=== PATIENT | female | born 1950 | race Hispanic/Latino ===

== ENCOUNTER 2018-09-04 16:38 | Inpatient (IN) | payer OTHER ==
--- OUTSIDE RECORDS SUMMARY | 2018-09-04 17:04 | XMS REPORT ---
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 Problem Diabetic nephropathy associated E11.21 Active with type 2 diabetes mellitus Problem Diabetes 1.5, 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 Problem Traumatic ulcer, limited to L98.491 Active breakdown of skin Problem Diabetic polyneuropathy associated E11.42 Active with type 2 diabetes mellitus Problem Peripheral vascular disease due to E13.51 Active secondary diabetes Problem Essential hypertension I10 Active Problem Pure hypercholesterolemia E78.00 Active Medications Medication Code Code Instructions Start End Status Dosage System Date Date Santyl [facility] 03940342469 250 UNIT/GM Apr 24, May 08, Active 1 application Externally Once 2017 2017 to affected a day area Lyrica ND 00892342978 75 MG Orally Apr 23, Active 1 capsule Twice a day 2017 Metformin HCl ND 04488454441 1000 MG Orally Active 1 tablet with Twice a day a meal Victoza [facility] 51467297666 18 MG/3ML March 19Sep 15, Active 1.2 mg Subcutaneous 2017 2017 daily Pravastatin ND 40999668871 40 MG Orally Active 1 tablet Sodium Once a day Potassium ND 77641048490 20 MEQ Orally Active 1 tablet with Chloride Jackeline Once a day food ER Metoprolol ND 17992848843 50 MG Orally Active 1 tablet with Tartrate Twice a day food Furosemide ND 21550213805 40 MG Orally Active 1 tablet Once a day Naproxen ND 24400202782 500 MG Orally Active 1 tablet Twice a day Clopidogrel ND 48942941659 75 MG Orally Active 1 tablet Bisulfate Once a day Results No Known Results Summary Purpose eClinicalWorks Submission
--- OUTSIDE RECORDS SUMMARY | 2018-09-04 17:04 | XMS REPORT ---
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
--- OUTSIDE RECORDS SUMMARY | 2018-09-04 17:04 | XMS REPORT ---
:1950 Author Organization eClinicalWorks Care Team Providers Name Role Phone Mo Macias Provider Role Unavailable Allergies No Known Allergies Problems Problem Type Condition Code Onset Dates Condition Status Assessment Peripheral vascular disease due to E13.51 Active secondary diabetes Assessment Chronic congestive heart failure, I50.9 Active unspecified heart failure type Assessment Pure hypercholesterolemia E78.00 Active Assessment Diabetic polyneuropathy associated E11.42 Active with type 2 diabetes mellitus Problem Pure hypercholesterolemia E78.00 Active Problem Diabetic polyneuropathy associated E11.42 Active with type 2 diabetes mellitus Problem Essential hypertension I10 Active Assessment Diabetes 1.5, 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 Assessment Essential hypertension I10 Active Problem Peripheral vascular disease due to E13.51 Active secondary diabetes Problem Diabetes 1.5, 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 Medications Medication Code Code Instructions Start End Status Dosage System Date Date Naproxen [facility] 68429739178 500 MG Orally Active 1 tablet Twice a day Clopidogrel [facility] 54149178016 75 MG Orally Active 1 tablet Bisulfate Once a day Bactrim DS [facility] 25226261880 800-160 MG Active 1 tablet Orally Twice a day x2wks Augmentin [facility] 51169856202 250-62.5 MG/5ML Active 1 tablet Orally QD x2wks Pravastatin ND 81859210809 40 MG Orally Active 1 tablet Sodium Once a day Lyrica ND 07366851561 75 MG Orally Inactive 1 capsule Once a day Glimepiride ND 82086508686 4 MG Orally Active 1 tablet twice a day with breakfast or the first main meal of the day Cleocin ND 60257056802 150 MG Orally Active 2 capsules Once a day x2wks Furosemide [facility] 36079006900 40 MG Orally Active 1 tablet Once a day Potassium [facility] 28870787655 20 MEQ Orally Active 1 tablet Chloride Jackeline Once a day with food ER Metoprolol ND 36957518460 50 MG Orally Active 1 tablet Tartrate Twice a day with food Metformin HCl [facility] 94599946235 1000 MG Orally Active 1 tablet Twice a day with a meal Results No Known Results Summary Purpose eClinicalWorks Submission
--- OUTSIDE RECORDS SUMMARY | 2018-09-04 17:04 | XMS REPORT ---
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, macular edema presence unspecified Assessment Peripheral vascular disease due to E13.51 Active secondary diabetes Problem Diabetes 1.5, 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 Problem Essential hypertension I10 Active Problem Diabetic nephropathy associated E11.21 Active with type 2 diabetes mellitus Problem Peripheral vascular disease due to E13.51 Active secondary diabetes Problem 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, macular edema presence unspecified Problem Pure hypercholesterolemia E78.00 Active Problem Diabetic polyneuropathy associated E11.42 Active with type 2 diabetes mellitus Medications Medication Code Code Instructions Start End Status Dosage System Date Date Glimepiride [facility] 12157244063 4 MG Orally March Inactive 1 tablet twice a day 2017 breakfast or the first main meal of the day Augmentin [facility] 97769746328 250-62.5 MG/5ML March Active 1 tablet Orally QD x2wks 2017 Bactrim DS [facility] 16938018346 800-160 MG March Active 1 tablet Orally Twice a x2wks 2017 Pravastatin [facility] 67555503381 40 MG Orally Active 1 tablet Sodium Once a day Metformin HCl ND 25189103497 1000 MG Orally Active 1 tablet Twice a day with a meal Clopidogrel [facility] 84092598646 75 MG Orally Active 1 tablet Bisulfate Once a day Potassium ND 28730929714 20 MEQ Orally Active 1 tablet Chloride Jackeline Once a day with food ER Metoprolol [facility] 83260877849 50 MG Orally Active 1 tablet Tartrate Twice a day with food Furosemide [facility] 71211323324 40 MG Orally Active 1 tablet Once a day Cleocin [facility] 52616450002 150 MG Orally March Active 2 capsules Once a day , x2wks 2017 Victoza [facility] 82518033280 18 MG/3ML March 19Sep 15, Active 1.2 mg Subcutaneous 2017 2017 daily Naproxen [facility] 99288615417 500 MG Orally Active 1 tablet Twice a day Results No Known Results Summary Purpose eClinicalWorks Submission
--- OUTSIDE RECORDS SUMMARY | 2018-09-04 17:04 | XMS REPORT ---
[...] Dosage System Date Date BD Pen Needle [facility] 21711202410 32G X 4 MM SQ May 11, Active as directed [place] U/F once a day 2017 Results No Known Results Summary Purpose eClinicalWorks Submission
--- OUTSIDE RECORDS SUMMARY | 2018-09-04 17:04 | XMS REPORT ---
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
[2018-09-04 17:25] VITALS: BMI 28.3
[2018-09-04] MEDS ORDERED: GLUCAGON 1 MG/VIAL IM PRN (18:21)
[2018-09-04] MEDS ORDERED: D50W 25 GM/50 ML SYRINGE IV PRN (18:21)
[2018-09-04 18:57] LABS: Absolute Lymphocytes (CBC) 1.6 K/uL (0.7-4.9); Absolute Monocytes 0.6 K/uL (0.1-1.3); Absolute Neutrophil 6.8 K/uL (1.8-8.0); Basophils % 0.8 % (0-1.3); Eosinophils % 2.1 % (0-4.4); Hematocrit 30.1 % (36.0-45.0); Lymphocytes % 17.5 % (15.3-44.8); MPV 8.5 fL (7.6-11.3); Monocytes % 6.1 % (3.3-12.3); RBC Red Blood Cell Count 3.84 M/uL (3.86-4.86)
[2018-09-04 19:07] LABS: Albumin 3.3 g/dL (3.4-5.0); Bilirubin Total 0.4 mg/dL (0.2-1.0); Potassium 4.3 mmol/L (3.5-5.1); Protein, Total 7.7 g/dL (6.4-8.2)
[2018-09-04] MEDS: NA CHLORIDE 0.9% 1,000 ML IV SCH (19:36)
--- NOTE | 2018-09-04 19:44 | P.HP ---
Certification for Inpatient Patient admitted to: Inpatient With expected LOS: >2 Midnights Patient will require the following post-hospital care: Home Health Services Practitioner: I am a practitioner with admitting privileges, knowledge of patient current condition, hospital course, and medical plan of care. Services: Services provided to patient in accordance with Admission requirements found in Title 42 Section 412.3 of the Code of Federal Regulations Patient History Date of Service: 09/04/18 Primary Care Provider: Colleen Reason for admission: osteomyleitis of the left 4th toe History of Present Illness: Patient came to the office today. She has been coming to the wound care center for treatment of a diabetic ulcer on her left 4th toe. the patient lost her nail on that toe. has been increasing in size. She has stated it looked worse. On examination the wound has definitely grown, foul smell. Bone could be seen in the wound. patient was sent to the hospital for admission and iv antibiotics. Allergies No Known Allergies Allergy (Unverified 05/11/16 12:58) Home Medications: Furosemide [Lasix*] 40 mg PO DAILY 05/11/16 Metformin HCl [Metformin HCl ER] 1,000 mg PO BID 05/11/16 Metoprolol Tartrate [Lopressor*] 50 mg PO BID 05/11/16 Pravastatin [Pravachol*] 40 mg PO DAILY 05/11/16 Clopidogrel Bisulfate [Plavix] 1 tab PO DAILY 11/02/17 Naproxen [Naprosyn] 500 mg PO BID 11/13/17 Pregabalin [Lyrica] 75 mg PO BID 09/04/18 - Past Medical/Surgical History Has patient received pneumonia vaccine in the past: Yes Diabetic: Yes -: CAD -: DIABETES -: HTN -: cholesterol -: neuropathy -: CABG X 3 -: cataract sx - Family History Father -: Stroke Sister -: Cancer Mother -: Heart disease - Social History Smoking Status: Never smoker Alcohol use: No CD- Drugs: No Caffeine use: Yes Place of Residence: Home Review of Systems 10-point ROS is otherwise unremarkable Musculoskeletal: Foot Pain (patient state minimal pain) Physical Examination - Vital Signs Temperature: 96.9 F Blood Pressure: 156/65 Pulse: 73 Respirations: 16 Pulse Ox (%): 96 - Physical Exam General: Alert, In no apparent distress HEENT: Atraumatic, PERRLA, Mucous membr. moist/pink, EOMI, Sclerae nonicteric Neck: Supple, 2+ carotid pulse no bruit, No LAD, Without JVD or thyroid abnormality Respiratory: Clear to auscultation bilaterally, Normal air movement Cardiovascular: Regular rate/rhythm, Normal S1 S2 Gastrointestinal: Normal bowel sounds, No tenderness Musculoskeletal: Tenderness Integumentary: No rashes, Diabetic ulcer (increased in size, with foul smell, not present 08/29/18.) Neurological: Normal gait, Normal speech, Normal strength at 5/5 x4 extr, Normal tone, Normal affect Lymphatics: No axilla or inguinal lymphadenopathy - Studies Laboratory Data (last 24 hrs) 09/04/18 18:30: Sodium 137, Potassium 4.3, BUN 33 H, Creatinine 0.90, Glucose 147 H, Total Bilirubin 0.4, AST 13 L, ALT 13, Alkaline Phosphatase 121 H 09/04/18 18:30: WBC 9.2, Hgb 9.8 L, Hct 30.1 L, Plt Count 329 Assessment and Plan - Problems (Diagnosis) (1) Osteomyelitis due to secondary diabetes Onset Date: 05/26/16 Current Visit: No Status: Acute Plan: Will start the patient on vanco and meropenem. As per the [place] Guide. Consult to Dr. Booth and Dr. Farrell. Will get an MRI to check for osteo. Will also do vascular studies (2) Type 2 diabetes mellitus without complications Current Visit: No Status: Acute Plan: hold metforminin case of surgery. Will start her on ISS and accuchecks. Start ADA diet Qualifiers: Diabetes mellitus assisted insulin use: without assisted use Qualified Code(s): E11.9 - Type 2 diabetes mellitus without complications (3) CAD (coronary artery disease) Onset Date: 05/26/16 Current Visit: No Status: Chronic Plan: stable will continue metformin. No chest pain at this time Qualifiers: Coronary Disease-Associated Artery/Lesion type: [place] artery (4) HTN (hypertension) Onset Date: 05/26/16 Current Visit: No Status: Chronic Plan: Only on metoprolol. Will monitor bp and adjust as necessary Qualifiers: Hypertension type: essential hypertension (5) Hyperlipidemia Current Visit: No Status: Chronic Plan: cont pravastatin. Will check a fasting lipid profile Qualifiers: Discharge Plan: Home Plan to discharge in: Greater than 2 days - Advance Directives Does patient have a Living Will: No Does patient have a Durable POA for Healthcare: No - Code Status/Comfort Care Code Status Assessed: No Code Status: Full Code Physician Review: Patient Assessed, Agree with Above Assessment and Plan Critical Care: No Time Spent Managing Pts Care (In Minutes): 75
[2018-09-04] MEDS ORDERED: VANCOMYCIN/NS 1 gm 1 GM/250 ML BAG IV SCH (21:00)
[2018-09-04] MEDS ORDERED: VANCOMYCIN 1.75 GM in NA CHLORIDE 0.9% 500 ML IVPB ONE (21:00)
[2018-09-04] MEDS ORDERED: VANCOMYCIN 1 GM in NA CHLORIDE 0.9% 500 ML IVPB SCH (21:00)
[2018-09-04] MEDS: Meropenem 1,000 MG in NA CHLORIDE 0.9% 100 ML IV SCH (21:55)
[2018-09-04] MEDS: INSULIN -REGULAR HUMAN 50 UNIT/0.5 ML ML SQ SCH (21:56)
[2018-09-04] MEDS: PREGABALIN 75 MG CAP PO SCH (21:56)
[2018-09-04] MEDS: METOPROLOL TAR 50 MG TAB PO SCH (21:56)
[2018-09-05 00:08] LABS: Urine Appearance CLOUDY; Urine Bilirubin NEGATIVE (NEG); Urine Blood NEGATIVE (NEG); Urine Color YELLOW; Urine Glucose 2+ (NEG); Urine Protein NEGATIVE (NEG); Urine Urobilinogen 0.2 mg/dL (0.2-1.0)
[2018-09-05 00:15] LABS: Urine Microscopic Reflex ORDER UMIC
[2018-09-05] MEDS ORDERED: Meropenem 1,000 MG in NA CHLORIDE 0.9% 100 ML IV SCH ×2 (01:00→19:00)
[2018-09-05] MEDS ORDERED: Meropenem 1000 MG/VIAL IV SCH (01:00)
[2018-09-05 01:16] LABS: Urine Bacteria 20-50 /HPF (<20); Urine Culture Reflex Order REFLEXED
[2018-09-05 01:17] LABS: Urine RBC <5 /HPF (NONE SEEN)
[2018-09-05] MEDS: Meropenem 1,000 MG in NA CHLORIDE 0.9% 100 ML IV SCH ×3 (01:50→17:04)
[2018-09-05 06:59] LABS: Absolute Lymphocytes (CBC) 1.1 K/uL (0.7-4.9); Absolute Monocytes 0.7 K/uL (0.1-1.3); Absolute Neutrophil 4.4 K/uL (1.8-8.0); Basophils % 0.7 % (0-1.3); Eosinophils % 3.6 % (0-4.4); Hematocrit 27.8 % (36.0-45.0); Lymphocytes % 16.9 % (15.3-44.8); MPV 8.4 fL (7.6-11.3); Monocytes % 10.8 % (3.3-12.3); RBC Red Blood Cell Count 3.61 M/uL (3.86-4.86)
[2018-09-05 07:25] LABS: ALT/SGPT 10 U/L (12-78); AST/SGOT 9 U/L (15-37); Albumin 2.6 g/dL (3.4-5.0); Alkaline Phosphatase 97 U/L (45-117); BUN Blood Urea Nitrogen 23 mg/dL (7-18); Bicarbonate 27 mmol/L (21-32); Bilirubin Total 0.3 mg/dL (0.2-1.0); Glucose Level 97 mg/dL (74-106); HDL Cholesterol 31 mg/dL (40-60); LDL Cholesterol, Calculated 68 (<130); Protein, Total 6.5 g/dL (6.4-8.2); Sodium Level 141 mmol/L (136-145)
[2018-09-05] MEDS: INSULIN -REGULAR HUMAN 50 UNIT/0.5 ML ML SQ SCH ×4 (07:30→21:20)
[2018-09-05] MEDS: HYDROCODONE/APAP 7.5/325 MG TAB PO PRN ×2 (07:49→19:54)
--- NOTE | 2018-09-05 08:19 | RAD REPORT ---
EXAM DESCRIPTION: MRI - Foot Left Wo Cont - 09/04/2018 8:48 pm CLINICAL HISTORY: Diabetic foot, left fourth toe wound COMPARISON: MRI left foot January 2018 TECHNIQUE: Multiplanar imaging of the left foot performed using T1 weighted, T2 fat saturation and T 2 stir sequencing. FINDINGS: Hypointense T1 and hyperintense T2 signal now present in the first distal phalanx. Transve rse hypointense signal traverses the midportion of the first distal phalanx. These are new findings f rom the January examination. There is no history of trauma or wound of the first toe. The first distal ph alanx finding has the appearance of fracture and associated edema. No gross bone destructive changes evident to indicate a pathologic fracture. First proximal phalanx shows normal signal. The osteomyelitis findings of the fifth toe seen on the January examination has substantially improved. T here is some remnant signal abnormality in the patient appears to have bone loss in the distal aspect of the proximal phalanx and proximal aspect of the middle phalanx. No abscess or drainable fluid col lection in this region. Fourth phalanx shows no suspicious signal pattern to indicate osteomyelitis. There is chronic flexure at the fourth PIP joint. Soft tissues are edematous. No drainable fluid collections seen. The second and third phalanges show no acute findings. No acute or suspicious signal abnormality in t he tarsal or metatarsal bones. There are degenerative changes present. IMPRESSION: Soft tissue infectious/ inflammatory edema is present in the left fourth toe soft tissue s without osteomyelitis identifiable. First distal phalanx fracture and abnormal edema signal. There is no trauma history or history of wou nd. This may be a fracture that is asymptomatic due to diabetic neuropathy. Osteomyelitis or patholog ic fracture are not suspected in the absence of a local soft tissue wound. Substantial improvement in the signal abnormality and osteomyelitis of the fifth distal phalanx. Ther e is a small amount of remnant signal abnormality. Patient appears to have bone loss near the fifth P IP joint. No abscess or drainable fluid collection.
[2018-09-05] MEDS ORDERED: HOME MED 1 EA UNK (Pravastatin [Pravachol*] 40 MG) PO SCH (09:00)
--- NOTE | 2018-09-05 09:13 | P.PN ---
Subjective Date of Service: 09/05/18 Primary Care Provider: Colleen Chief Complaint: osteomyleitis of the left 4th toe Subjective: No new changes Review of Systems 10-point ROS is otherwise unremarkable Musculoskeletal: Foot Pain (mild pain) Physical Examination - Vital Signs Temperature: 98.2 F Blood Pressure: 114/65 Pulse: 62 Respirations: 18 Pulse Ox (%): 96 - Physical Exam General: Alert, In no apparent distress HEENT: Atraumatic, PERRLA, EOMI Neck: Supple, JVD not distended Respiratory: Clear to auscultation bilaterally, Normal air movement Cardiovascular: Regular rate/rhythm, Normal S1 S2 Gastrointestinal: Normal bowel sounds, No tenderness Musculoskeletal: No tenderness Integumentary: No rashes Neurological: Normal speech, Normal tone, Normal affect Lymphatics: No axilla or inguinal lymphadenopathy - Studies Laboratory Data (last 24 hrs) 09/05/18 06:31: Sodium 141, Potassium 4.0, BUN 23 H, Creatinine 0.60, Glucose 97 , Total Bilirubin 0.3, AST 9 L, ALT 10 L, Alkaline Phosphatase 97, Triglycerides 120, Cholesterol 123, HDL Cholesterol 31 L, Cholesterol/HDL Ratio 3.97 09/05/18 06:31: WBC 6.5 D, Hgb 9.0 L, Hct 27.8 L, Plt Count 332 09/05/18 05:00: Triglycerides Cancelled, Cholesterol Cancelled, HDL Cholesterol Cancelled, Cholesterol/HDL Ratio Cancelled 09/04/18 18:30: Sodium 137, Potassium 4.3, BUN 33 H, Creatinine 0.90, Glucose 147 H, Total Bilirubin 0.4, AST 13 L, ALT 13, Alkaline Phosphatase 121 H 09/04/18 18:30: WBC 9.2, Hgb 9.8 L, Hct 30.1 L, Plt Count 329 Microbiology Data (last 24 hrs): 09/04/18 21:50 Wound - Left Foot Gram Stain - Final Assessment & Plan - Problems (Diagnosis) (1) Osteomyelitis due to secondary diabetes Onset Date: 05/26/16 Current Visit: No Status: Acute Plan: Will start the patient on vanco and meropenem. As per the [place] Guide. Consult to Dr. Booth and Dr. Farrell. Will get an MRI to check for osteo. Will also do vascular studies (2) Type 2 diabetes mellitus without complications Current Visit: No Status: Acute Plan: hold metforminin case of surgery. Will start her on ISS and accuchecks. 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 Will monitor bp and adjust as necessary Qualifiers: Hypertension type: essential hypertension (4) Hyperlipidemia Current Visit: No Status: Chronic Plan: cont pravastatin. Will check a fasting lipid profile Qualifiers: (5) CAD (coronary artery disease) Onset Date: 05/26/16 Current Visit: No Status: Chronic Plan: stable will continue metformin. No chest pain at this time Qualifiers: Coronary Disease-Associated Artery/Lesion type: [place] artery Discharge Plan: Home Plan to discharge in: Greater than 2 days - Code Status/Comfort Care Code Status Assessed: No Code Status: Full Code Physician Review: Patient Assessed, Agree with Above Assessment and Plan Critical Care: No Time Spent Managing Pts Care (In Minutes): 20
[2018-09-05] MEDS: ATORVASTATIN 10 MG TAB PO SCH (10:03)
[2018-09-05] MEDS: PREGABALIN 75 MG CAP PO SCH ×2 (10:03→21:21)
[2018-09-05] MEDS: METOPROLOL TAR 50 MG TAB PO SCH ×2 (10:03→21:21)
[2018-09-05] MEDS: NA CHLORIDE 0.9% 1,000 ML IV SCH ×2 (10:05→21:19)
--- NOTE | 2018-09-05 10:35 | RAD REPORT ---
EXAM DESCRIPTION: US - Extrem Venous W Compress Darrius - 09/05/2018 9:31 am CLINICAL HISTORY: diabetic foot Bilateral leg edema and swelling. COMPARISON: No comparisons TECHNIQUE: Real-time sonographic interrogation of the left and right lower extremity deep venous sys tems was performed. FINDINGS: Normal compressibility, flow augmentation, phasic flow and spontaneous flow is identified in both the left and right lower extremity deep venous systems. IMPRESSION: No sonographic evidence of left or right lower extremity deep venous thrombosis.
--- NOTE | 2018-09-05 10:35 | RAD REPORT ---
EXAM DESCRIPTION: US - Upper Lower Extrem Art Multi - 09/05/2018 9:48 am CLINICAL HISTORY: diabetic foot Claudication COMPARISON: Extrem Venous W Compress Darrius dated 09/05/2018 TECHNIQUE: Bilateral lower extremity arterial Doppler examination was performed with waveform tracin g and ankle brachial pressure measurements. FINDINGS: Symmetric brachial pressure measurements are noted. The right common femoral artery to the right popliteal artery is triphasic. Right posterior tibial ar solis is monophasic and the dorsalis pedis artery is monophasic. The left common femoral artery to the left popliteal artery is triphasic. Left posterior tibial arter y is monophasic and noncompressible. Left dorsalis pedis artery is monophasic. Right ankle - great toe index measures 0.1, significantly diminished. Left ankle- great toe index measures 0.2, significantly diminished. IMPRESSION: Significant distal peripheral vascular disease is noted bilaterally predominately below the level of the popliteal arteries. This type of disease pattern is commonly seen in diabetics. Vessel occlusion is not seen.
[2018-09-05] MEDS: VANCOMYCIN 1.25 GM in NA CHLORIDE 0.9% 250 ML IVPB SCH ×2 (11:17→21:21)
--- NOTE | 2018-09-05 13:20 | P.CNS ---
Date of Consult: 09/05/18 Reason for Consult: wound left fourth digit Primary Care Provider: Colleen Chief Complaint: osteomyleitis of the left 4th toe Allergies No Known Allergies Allergy (Verified 09/05/18 00:51) Home Medications: Furosemide [Lasix*] 40 mg PO DAILY 05/11/16 Metformin HCl [Metformin HCl ER] 1,000 mg PO BID 05/11/16 Metoprolol Tartrate [Lopressor*] 50 mg PO BID 05/11/16 Pravastatin [Pravachol*] 40 mg PO DAILY 05/11/16 Clopidogrel Bisulfate [Plavix] 1 tab PO DAILY 11/02/17 Naproxen [Naprosyn] 500 mg PO BID 11/13/17 Pregabalin [Lyrica] 75 mg PO BID 09/04/18 - Past Medical/Surgical History Diabetic: Yes -: CAD -: DIABETES -: HTN -: cholesterol -: neuropathy -: CABG X 3 -: cataract sx - Family History Father Medical History: Stroke Sister Medical History: Cancer Mother Medical History: Heart disease - Social History Alcohol use: No CD- Drugs: No Caffeine use: Yes Place of Residence: Home Review of Systems 10-point ROS is otherwise unremarkable Physical Examination Temp Pulse Resp BP Pulse Ox 98.2 F 62 18 114/65 96 09/05/18 09:12 09/05/18 10:03 09/05/18 09:12 09/05/18 10:03 09/05/18 09:12 General: Alert, In no apparent distress, Oriented x3 Cardiovascular: No edema, Abnormal pulses (brandy left of 0.1 and right of 0.2) Capillary refill: <2 Seconds Musculoskeletal: No clubbing, No swelling, No contractures, No erythema, No tenderness, No warmth Integumentary: Diabetic ulcer (ulceration distal aspect of left fourth digit with bone exposure, large black eschar/fibrin, no purulence, minimal edema left hallux) Neurological: Abnormal sensation Laboratory Data (last 24 hrs) 09/05/18 06:31: Sodium 141, Potassium 4.0, BUN 23 H, Creatinine 0.60, Glucose 97 , Total Bilirubin 0.3, AST 9 L, ALT 10 L, Alkaline Phosphatase 97, Triglycerides 120, Cholesterol 123, HDL Cholesterol 31 L, Cholesterol/HDL Ratio 3.97 09/05/18 06:31: WBC 6.5 D, Hgb 9.0 L, Hct 27.8 L, Plt Count 332 09/05/18 05:00: Triglycerides Cancelled, Cholesterol Cancelled, HDL Cholesterol Cancelled, Cholesterol/HDL Ratio Cancelled 09/04/18 18:30: Sodium 137, Potassium 4.3, BUN 33 H, Creatinine 0.90, Glucose 147 H, Total Bilirubin 0.4, AST 13 L, ALT 13, Alkaline Phosphatase 121 H 09/04/18 18:30: WBC 9.2, Hgb 9.8 L, Hct 30.1 L, Plt Count 329 Imagings Data: MRI left foot negative for osteomyelitis left fourth digit. - Problems (1) Osteomyelitis due to secondary diabetes Onset Date: 05/26/16 Current Visit: No Status: Acute Conclusions/Impression: santyl to wound daily with saline moistened gauze Physician Review: Patient Assessed, Agree with Above Assessment and Plan Time Spent Managing Pts care (In Minutes): 30
--- NOTE | 2018-09-05 17:23 | CON ---
History: The patient is a 68-year-old female. I was consulted for left foot cellulitis and osteomye litis with diabetic foot ulcer. The patient is a known case to me from previous admissions and clini c visits, being followed by Wound Care and primary care doctor down here in [place]. She has th is time developed foul smelling diabetic foot ulcer to the left fourth toe with loss of nail. Denies any headache, nausea, vomiting, chest pain, abdominal pain, constipation, or diarrhea. Past Medical History: Coronary artery disease, diabetes mellitus, hypertension, hypercholesterolemia , neuropathy, CABG x3 vessels, cataract surgery. Family History: Positive for stroke, cancer, and heart disease. Social History: Nonsmoker, nondrinker. Family History: Noncontributory. Medications: Vancomycin and meropenem. Allergies: NO KNOWN DRUG ALLERGIES. Review of Systems: A 10-point review was performed. Physical Examination: General: This is a 68-year-old female, lying in bed, not in any acute cardiopulmonary distress. Vital Signs: Temperature 98, pulse 62, respiration 18, blood pressure 114/65. HEENT: Unremarkable. Neck: Supple. Lungs: Basal crackles. Heart: S1, S2. Regular. Abdomen: Soft, nontender. Bowel sounds positive. Extremity: Left foot wound noted with foul smelling, necrotic ulcer also noted. Laboratory Data: Shows WBC 6.5, hemoglobin 9, platelets are 332. Sodium 141, potassium 4, chloride 110, bicarb 27, BUN 23, creatinine 0.6, glucose is 97, albumin is 2.6. MRI of the left foot shows so ft tissue infection. Inflammatory edema is present in the left fourth toe soft tissue without osteom yelitis identified first distal phalanx fracture. Micro data shows wound cultures and blood cultures are pending. Assessment And Plan: Infected diabetic foot ulcer with MRI showing no osteomyelitis. At this time, continue antibiotic and wound care. Recommend the patient to have Hydrofera Blue to the wound site a nd continue offloading. Continue antibiotic, total course should be at least 2 weeks. If not improv ed, we would re-evaluate, follow up with the W[facility] Care [facility]. We will continue current antibiotic till the cultures came back. Thank you, Dr. Macias, for consult. NF/CHRIS Voice ID: [id number] Report ID: [id number]
[2018-09-06] MEDS: Meropenem 1,000 MG in NA CHLORIDE 0.9% 100 ML IV SCH ×3 (00:28→17:59)
[2018-09-06 06:41] LABS: Absolute Lymphocytes (CBC) 0.9 K/uL (0.7-4.9); Absolute Monocytes 0.6 K/uL (0.1-1.3); Absolute Neutrophil 3.6 K/uL (1.8-8.0); Basophils % 0.9 % (0-1.3); Eosinophils % 4.6 % (0-4.4); Hematocrit 26.5 % (36.0-45.0); Lymphocytes % 16.4 % (15.3-44.8); MPV 8.5 fL (7.6-11.3); Monocytes % 10.8 % (3.3-12.3); RBC Red Blood Cell Count 3.41 M/uL (3.86-4.86)
[2018-09-06 06:54] LABS: ALT/SGPT 11 U/L (12-78); AST/SGOT 10 U/L (15-37); Albumin 2.4 g/dL (3.4-5.0); Alkaline Phosphatase 97 U/L (45-117); BUN Blood Urea Nitrogen 18 mg/dL (7-18); Bicarbonate 25 mmol/L (21-32); Bilirubin Total 0.2 mg/dL (0.2-1.0); Glucose Level 164 mg/dL (74-106); Potassium 4.4 mmol/L (3.5-5.1); Protein, Total 5.9 g/dL (6.4-8.2); Sodium Level 139 mmol/L (136-145)
[2018-09-06] MEDS: INSULIN -REGULAR HUMAN 50 UNIT/0.5 ML ML SQ SCH ×4 (07:30→21:38)
[2018-09-06] MEDS: VANCOMYCIN 1.25 GM in NA CHLORIDE 0.9% 250 ML IVPB SCH ×2 (09:00→15:16)
[2018-09-06] MEDS: ATORVASTATIN 10 MG TAB PO SCH (09:57)
[2018-09-06] MEDS: PREGABALIN 75 MG CAP PO SCH ×2 (09:57→21:38)
[2018-09-06] MEDS: METOPROLOL TAR 50 MG TAB PO SCH ×2 (09:57→21:38)
[2018-09-06] MEDS: COLLAGENASE 30 GM OINTMENT TOP SCH (09:59)
--- NOTE | 2018-09-06 14:16 | P.PN ---
Subjective Date of Service: 09/06/18 Primary Care Provider: Colleen Chief Complaint: osteomyleitis of the left 4th toe Subjective: No new changes Review of Systems 10-point ROS is otherwise unremarkable Physical Examination - Vital Signs Temperature: 97.3 F Blood Pressure: 159/70 Pulse: 60 Respirations: 18 Pulse Ox (%): 96 - Physical Exam General: Alert, In no apparent distress, Oriented x3 Cardiovascular: No edema, Abnormal pulses Capillary refill: >2 Seconds Musculoskeletal: No clubbing, No swelling, No contractures, No erythema, No tenderness, No warmth Integumentary: Diabetic ulcer (ulceration distal aspect of left fifth digit demonstrates large necrotic tissue with bone exposure. No purulence noted) Neurological: Abnormal sensation - Studies Laboratory Data (last 24 hrs) 09/06/18 06:06: Sodium 139, Potassium 4.4, BUN 18, Creatinine 0.50 L, Glucose 164 H, Total Bilirubin 0.2, AST 10 L, ALT 11 L, Alkaline Phosphatase 97 09/06/18 06:06: WBC 5.3 D, Hgb 8.9 L, Hct 26.5 L, Plt Count 300 Microbiology Data (last 24 hrs): 09/04/18 21:50 Wound - Left Foot Gram Stain - Final 09/04/18 23:40 Clean Catch Urine [place] Count - Final <10,000 CFU/ML. 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 Debridment was to the level of muscle with minimal bleeding noted after the procedure. Wound to be dressed with santyl Physician Review: Patient Assessed, Agree with Above Assessment and Plan Time Spent Managing PTS Care (In Minutes): 20
[2018-09-06] MEDS: NA CHLORIDE 0.9% 1,000 ML IV SCH ×2 (15:15→21:39)
--- NOTE | 2018-09-06 15:19 | P.PN ---
Subjective Date of Service: 09/06/18 Primary Care Provider: Colleen Chief Complaint: osteomyleitis of the left 4th toe Subjective: No new changes Review of Systems 10-point ROS is otherwise unremarkable Physical Examination - Vital Signs Temperature: 97.3 F Blood Pressure: 159/70 Pulse: 60 Respirations: 18 Pulse Ox (%): 96 - Studies Laboratory Data (last 24 hrs) 09/06/18 06:06: Sodium 139, Potassium 4.4, BUN 18, Creatinine 0.50 L, Glucose 164 H, Total Bilirubin 0.2, AST 10 L, ALT 11 L, Alkaline Phosphatase 97 09/06/18 06:06: WBC 5.3 D, Hgb 8.9 L, Hct 26.5 L, Plt Count 300 Microbiology Data (last 24 hrs): 09/04/18 21:50 Wound - Left Foot Gram Stain - Final 09/04/18 23:40 Clean Catch Urine [place] Count - Final <10,000 CFU/ML. 09/04/18 23:40 Clean Catch Urine - Final Assessment & Plan - Problems (Diagnosis) (1) Osteomyelitis due to secondary diabetes Onset Date: 05/26/16 Current Visit: No Status: Acute Plan: Will start the patient on vanco and meropenem. As per the [place] Guide. Consult to Dr. Booth and Dr. Farrell. will arrange for piccl line. consult social media senior associate. Gm -ve in the culture with Gm + chains. Will await the full report. (2) Peripheral vascular disease due to secondary diabetes Current Visit: Yes Status: Acute Plan: will need to plan for out patient revascularization. Can consider Dr Ludwin Shankar. Will arrange for this as an outpatient. (3) Type 2 diabetes mellitus without complications Onset Date: 09/05/18 Current Visit: No Status: Acute Plan: hold metforminin case of surgery. Will start her on ISS and accuchecks. 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 Will monitor bp and adjust as necessary Qualifiers: Hypertension type: essential hypertension (5) Hyperlipidemia Onset Date: 09/05/18 Current Visit: No Status: Chronic Plan: cont pravastatin. Will check a fasting lipid profile Qualifiers: (6) CAD (coronary artery disease) Onset Date: 05/26/16 Current Visit: No Status: Chronic Plan: stable will continue metformin. No chest pain at this time Qualifiers: Coronary Disease-Associated Artery/Lesion type: [place] artery Discharge Plan: Home Plan to discharge in: 48 Hours - Code Status/Comfort Care Code Status Assessed: No Code Status: Full Code Physician Review: Patient Assessed, Agree with Above Assessment and Plan Critical Care: No Time Spent Managing Pts Care (In Minutes): 25
[2018-09-07] MEDS: HYDROCODONE/APAP 7.5/325 MG TAB PO PRN ×2 (02:17→09:39)
[2018-09-07] MEDS: Meropenem 1,000 MG in NA CHLORIDE 0.9% 100 ML IV SCH ×2 (02:18→09:35)
[2018-09-07 03:28] VITALS: O2SAT 96
[2018-09-07 05:22] LABS: Absolute Lymphocytes (CBC) 1.6 K/uL (0.7-4.9); Absolute Monocytes 0.7 K/uL (0.1-1.3); Absolute Neutrophil 4.4 K/uL (1.8-8.0); Basophils % 0.5 % (0-1.3); Eosinophils % 3.3 % (0-4.4); Hematocrit 27.9 % (36.0-45.0); Lymphocytes % 23.1 % (15.3-44.8); MPV 8.5 fL (7.6-11.3); Monocytes % 9.7 % (3.3-12.3)
[2018-09-07 05:40] LABS: Albumin 2.6 g/dL (3.4-5.0); Bilirubin Total 0.2 mg/dL (0.2-1.0); Potassium 4.5 mmol/L (3.5-5.1); Protein, Total 6.5 g/dL (6.4-8.2)
[2018-09-07] MEDS: INSULIN -REGULAR HUMAN 50 UNIT/0.5 ML ML SQ SCH ×2 (07:30→12:39)
--- NOTE | 2018-09-07 08:03 | RAD REPORT ---
EXAM DESCRIPTION: RAD - Chest Single View - 09/07/2018 2:20 am CLINICAL HISTORY: Device placement PICC line placement COMPARISON: October 2017 FINDINGS: A PICC line has been inserted with its tip in the distal superior vena cava. The lungs appear clear of acute infiltrate. The heart is mildly enlarged. Postsurgical changes involv e the chest IMPRESSION: PICC line with its tip in the distal superior vena cava
[2018-09-07] MEDS ORDERED: LISINOPRIL 10 MG TAB PO SCH (09:00)
[2018-09-07] MEDS: PREGABALIN 75 MG CAP PO SCH (09:36)
[2018-09-07] MEDS: METOPROLOL TAR 50 MG TAB PO SCH (09:37)
[2018-09-07] MEDS: ATORVASTATIN 10 MG TAB PO SCH (09:37)
[2018-09-07] MEDS: COLLAGENASE 30 GM OINTMENT TOP SCH (09:46)
[2018-09-07] MEDS: VANCOMYCIN 1.25 GM in NA CHLORIDE 0.9% 250 ML IVPB SCH (09:47)
--- NOTE | 2018-09-07 11:17 | P.DS ---
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 She has been coming to the wound care center for treatment of a diabetic ulcer on her left 4th toe. the patient lost her nail on that toe. has been increasing in size. She has stated it looked worse. On examination the wound has definitely grown, foul smell. Bone could be seen in the wound. patient was sent to the hospital for admission and iv antibiotics. Hospital Course: Patient was seen by Dr. Booth, and Dr. Bhardwaj. She had a bedside debridement with Dr. Booth. MRI showed no osteomyleitis. She had proteus mirabilais in the wound. Multidrug sensitive. Will discharge her on 2 weeks of levaquin. Will add augment po for synergistic effect. She can follow up with Dr. Booth in the wound care center. Will need to refer her to Dr. Snow Shankar. She can be seen in [place]. She perfers to be seen in the area. However she most likely needs to be seen in [facility] for any revascularization procedures. 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 Vital Signs/Physical Exam: Temp Pulse Resp BP Pulse Ox 96.8 F 64 18 156/68 H 96 09/07/18 08:00 09/07/18 09:38 09/07/18 08:00 09/07/18 09:38 09/07/18 08:00 General: Alert, In no apparent distress HEENT: Atraumatic, PERRLA, EOMI Neck: Supple, JVD not distended Respiratory: Clear to auscultation bilaterally, Normal air movement Cardiovascular: Regular rate/rhythm, Normal S1 S2 Gastrointestinal: Normal bowel sounds, No tenderness Musculoskeletal: No tenderness Integumentary: No rashes, Diabetic ulcer (left 4th toe) Neurological: Normal speech, Normal tone, Normal affect Lymphatics: No axilla or inguinal lymphadenopathy Laboratory Data at Discharge: WBC 6.9 K/uL (4.3-10.9) D 09/07/18 04:30 Hgb 9.0 g/dL (12.0-15.0) L 09/07/18 04:30 Hct 27.9 % (36.0-45.0) L 09/07/18 04:30 Plt Count 335 K/uL (152-406) 09/07/18 04:30 Sodium 139 mmol/L (136-145) 09/07/18 04:30 Potassium 4.5 mmol/L (3.5-5.1) 09/07/18 04:30 BUN 15 mg/dL (7-18) 09/07/18 04:30 Creatinine 0.70 mg/dL (0.55-1.3) 09/07/18 04:30 Glucose 117 mg/dL (74-106) H 09/07/18 04:30 Total Bilirubin 0.2 mg/dL (0.2-1.0) 09/07/18 04:30 AST 14 U/L (15-37) L 09/07/18 04:30 ALT 14 U/L (12-78) 09/07/18 04:30 Alkaline Phosphatase 101 U/L (45-117) 09/07/18 04:30 Triglycerides 120 mg/dL (<150) 09/05/18 06:31 Cholesterol 123 mg/dL (<200) 09/05/18 06:31 HDL Cholesterol 31 mg/dL (40-60) L 09/05/18 06:31 Cholesterol/HDL Ratio 3.97 09/05/18 06:31 Home Medications: Furosemide [Lasix*] 40 mg PO DAILY 05/11/16 Metformin HCl [Metformin HCl ER] 1,000 mg PO BID 05/11/16 Metoprolol Tartrate [Lopressor*] 50 mg PO BID 05/11/16 Pravastatin [Pravachol*] 40 mg PO DAILY 05/11/16 Clopidogrel Bisulfate [Plavix] 1 tab PO DAILY 11/02/17 Naproxen [Naprosyn] 500 mg PO BID 11/13/17 Pregabalin [Lyrica] 75 mg PO BID 09/04/18 Diet: ADA Activity: Ad riccardo Followup: El Booth JR, DPM [ASSOCIATE-ACTIVE - CAN ADMIT] - Time spent managing pt's care (in minutes): 25
[2018-09-07 12:55] VITALS: BP 129/61; TEMP 97.1
== END 2018-09-07 13:55 | disposition home or self-care (01) | DRG 982 ==
LOC: 2ND 17:02
PROVIDERS: ADMIT Internal Medicine; ATTEND Internal Medicine
PROC: 02HV33Z Insertion of Infusion Device into Superior Vena Cava, Percutaneous Approach (ICD-10-PCS; 2018-09-06)
PROC: 0KBW0ZZ Excision of Left Foot Muscle, Open Approach (ICD-10-PCS; principal; 2018-09-07)
DX: E11.621 Type 2 diabetes mellitus with foot ulcer (principal); L97.526 Non-pressure chronic ulcer of other part of left foot with bone involvement without evidence of necrosis; E11.69 Type 2 diabetes mellitus with other specified complication; Z79.84 Long term (current) use of oral hypoglycemic drugs; E11.51 Type 2 diabetes mellitus with diabetic peripheral angiopathy without gangrene; I10 Essential (primary) hypertension; E78.5 Hyperlipidemia, unspecified; I25.10 Atherosclerotic heart disease of native coronary artery without angina pectoris; Z95.1 Presence of aortocoronary bypass graft; B96.4 Proteus (mirabilis) (morganii) as the cause of diseases classified elsewhere
CPT/HCPCS: 36415; 71045; 80053; 80061; 80202; 81003; 81015; 82962; 84443; 85025; 87040; 87070; 87077; 87086; 87088; 87186; 87205; 93923; 93970; J3370; J3590; J7030

== ENCOUNTER 2018-09-15 18:59 | Emergency (ER) | payer OTHER ==
--- OUTSIDE RECORDS SUMMARY | 2018-09-15 19:01 | XMS REPORT ---
[...] End Status Dosage System Date Date Naproxen [facility] 08783818148 500 MG Orally Active 1 tablet Twice a day Clopidogrel [facility] 47986531190 75 MG Orally Active 1 tablet Bisulfate Once a day Bactrim DS [facility] 59083634706 800-160 MG Active 1 tablet Orally Twice a day x2wks Augmentin [facility] 08815525137 250-62.5 MG/5ML Active 1 tablet Orally QD x2wks Pravastatin ND 87632891203 40 MG Orally Active 1 tablet Sodium Once a day Lyrica ND 54741276907 75 MG Orally Inactive 1 capsule Once a day Glimepiride ND 00620336449 4 MG Orally Active 1 tablet twice a day with breakfast or the first main meal of the day Cleocin ND 53066650720 150 MG Orally Active 2 capsules Once a day x2wks Furosemide [facility] 55338188295 40 MG Orally Active 1 tablet Once a day Potassium [facility] 15431949481 20 MEQ Orally Active 1 tablet Chloride Jackeline Once a day with food ER Metoprolol ND 60999049230 50 MG Orally Active 1 tablet Tartrate Twice a day with food Metformin HCl [facility] 35429485920 1000 MG Orally Active 1 tablet Twice a day with a meal Results No Known Results Summary Purpose eClinicalWorks Submission
--- OUTSIDE RECORDS SUMMARY | 2018-09-15 19:01 | XMS REPORT ---
[...] Date Status Dosage Date Naproxen [facility] 03899898461 500 MG Orally Active 1 tablet Twice a day Lyrica [facility] 47534705788 75 MG Orally Apr 23, Active 1 capsule Twice a day 2017 Victoza [facility] 24041361287 18 MG/3ML March 19, Sep 15, Active 1.2 mg Subcutaneous 2017 2018 daily Results No Known Results Summary Purpose eClinicalWorks Submission
--- OUTSIDE RECORDS SUMMARY | 2018-09-15 19:01 | XMS REPORT ---
[...] Dosage System Date Date BD Pen Needle [facility] 21072953276 32G X 4 MM SQ May 11, Active as directed [place] U/F once a day 2017 Results No Known Results Summary Purpose eClinicalWorks Submission
--- OUTSIDE RECORDS SUMMARY | 2018-09-15 19:01 | XMS REPORT ---
[...] End Status Dosage System Date Date Santyl [facility] 59463597238 250 UNIT/GM Apr 24, May 08, Active 1 application Externally Once 2017 2017 to affected a day area Lyrica ND 61336894882 75 MG Orally Apr 23, Active 1 capsule Twice a day 2017 Metformin HCl ND 44483540140 1000 MG Orally Active 1 tablet with Twice a day a meal Victoza [facility] 03584016803 18 MG/3ML March 19Sep 15, Active 1.2 mg Subcutaneous 2017 2017 daily Pravastatin ND 59906902352 40 MG Orally Active 1 tablet Sodium Once a day Potassium ND 11922080701 20 MEQ Orally Active 1 tablet with Chloride Jackeline Once a day food ER Metoprolol ND 57574778090 50 MG Orally Active 1 tablet with Tartrate Twice a day food Furosemide ND 90419946618 40 MG Orally Active 1 tablet Once a day Naproxen ND 41973054619 500 MG Orally Active 1 tablet Twice a day Clopidogrel ND 61671343088 75 MG Orally Active 1 tablet Bisulfate Once a day Results No Known Results Summary Purpose eClinicalWorks Submission
--- OUTSIDE RECORDS SUMMARY | 2018-09-15 19:01 | XMS REPORT ---
[...] BD Pen Needle [facility] 41723682806 32G X 4 MM SQ May 11, Active as directed [place] U/F once a day 2017 Results No Known Results Summary Purpose eClinicalWorks Submission
--- OUTSIDE RECORDS SUMMARY | 2018-09-15 19:01 | XMS REPORT ---
[...] End Status Dosage System Date Date Glimepiride [facility] 17724483419 4 MG Orally March Inactive 1 tablet twice a day 2017 breakfast or the first main meal of the day Augmentin [facility] 62194182844 250-62.5 MG/5ML March Active 1 tablet Orally QD x2wks 2017 Bactrim DS [facility] 55262839208 800-160 MG March Active 1 tablet Orally Twice a x2wks 2017 Pravastatin [facility] 78322405465 40 MG Orally Active 1 tablet Sodium Once a day Metformin HCl ND 86586325389 1000 MG Orally Active 1 tablet Twice a day with a meal Clopidogrel [facility] 31895800979 75 MG Orally Active 1 tablet Bisulfate Once a day Potassium ND 21416682636 20 MEQ Orally Active 1 tablet Chloride Jackeline Once a day with food ER Metoprolol [facility] 87140237034 50 MG Orally Active 1 tablet Tartrate Twice a day with food Furosemide [facility] 18683868176 40 MG Orally Active 1 tablet Once a day Cleocin [facility] 59057747386 150 MG Orally March Active 2 capsules Once a day , x2wks 2017 Victoza [facility] 02374731513 18 MG/3ML March 19Sep 15, Active 1.2 mg Subcutaneous 2017 2017 daily Naproxen [facility] 47803466853 500 MG Orally Active 1 tablet Twice a day Results No Known Results Summary Purpose eClinicalWorks Submission
[2018-09-15] MEDS ORDERED: ONDANSETRON 4 MG (ODT) TAB ONE (20:14)
--- NOTE | 2018-09-15 20:43 | EDPHYS ---
Physician Documentation [facility] Name: Mildred Kelly Age: 68 yrs Sex: Female : 1950 Arrival Date: 09/15/2018 Time: 19:01 Bed 7 Private MD: Mo Macias ED Physician Benja Banks HPI: 09/15 20:23 This 68 yrs old Female presents to ER via Wheelchair with complaints of jr8 Nausea, Back Pain. 20:23 Patient has been on levaquin via PICC line and now transitioned to oral Levaquin for jr8 osteomyelitis of the foot. Since started on the medication has been nauseated and could no longer tolerate it. Denies diarrhea or pain to abdomen . Severity of symptoms: At their worst the symptoms were mild in the emergency department the symptoms are unchanged. The patient has not experienced similar symptoms in the past. The patient has not recently seen a physician. Historical: - Allergies: 19:20 No Known Allergies; aj1 - Home Meds: 19:20 pravastatin 40 mg oral tab 1 tab once daily [Active]; Lasix 40 mg Oral tab 1 tab once aj1 daily [Active]; glimepiride 4 mg Oral tab 1 tab twice daily [Active]; metformin 1,000 mg Oral tab 1 tab 2 times per day [Active]; naproxen 500 mg Oral TbEC 1 tab 2 times per day [Active]; metoprolol tartrate 50 mg Oral tab 1 tab 2 times per day [Active]; Lyrica 75 mg Oral 2 times per day [Active]; Levaquin 750 mg Oral tab 1 tab once daily [Active]; - PMHx: 19:20 Hyperlipidemia; Hypertension; Diabetes - NIDDM; neuropathy; CHF; triple bypass; aj1 - Immunization history:: Flu vaccine is up to date. - Social history:: Smoking status: Patient/guardian denies using tobacco. - Ebola Screening: : Patient denies travel to an Ebola-affected area in the 21 days before illness onset. ROS: 20:23 Eyes: Negative for injury, pain, redness, and discharge, ENT: Negative for injury, jr8 pain, and discharge, Neck: Negative for injury, pain, and swelling, Cardiovascular: Negative for chest pain, palpitations, and edema, Respiratory: Negative for shortness of breath, cough, wheezing, and pleuritic chest pain, Back: Negative for injury. Has pain to mid back MS/Extremity: Negative for injury and deformity, Skin: Negative for injury, rash, and discoloration, Neuro: Negative for headache, weakness, numbness, tingling, and seizure. 20:23 Abdomen/GI: Positive for nausea, vomiting, Negative for abdominal pain, diarrhea, constipation, abdominal cramps, abdominal distension, anorexia, dysphagia, hematemesis, black/tarry stool, rectal pain, rectal bleeding, bowel incontinence, flatulence. Exam: 20:23 Eyes: Pupils equal round and reactive to light, extra-ocular motions intact. Lids and jr8 lashes normal. Conjunctiva and sclera are non-icteric and not injected. Cornea within normal limits. Periorbital areas with no swelling, redness, or edema. ENT: Nares patent. No nasal discharge, no septal abnormalities noted. Tympanic membranes are normal and external auditory canals are clear. Oropharynx with no redness, swelling, or masses, exudates, or evidence of obstruction, uvula midline. Mucous membranes moist. Neck: Trachea midline, no thyromegaly or masses palpated, and no cervical lymphadenopathy. Supple, full range of motion without nuchal rigidity, or vertebral point tenderness. No Meningismus. Cardiovascular: Regular rate and rhythm with a normal S1 and S2. No gallops, murmurs, or rubs. Normal PMI, no JVD. No pulse deficits. Respiratory: Lungs have equal breath sounds bilaterally, clear to auscultation and percussion. No rales, rhonchi or wheezes noted. No increased work of breathing, no retractions or nasal flaring. Abdomen/GI: Soft, non-tender, with normal bowel sounds. No distension or tympany. No guarding or rebound. No evidence of tenderness throughout. Back: No spinal tenderness. No costovertebral tenderness. Full range of motion. Skin: Warm, dry with normal turgor. Normal color with no rashes, no lesions, and no evidence of cellulitis. MS/ Extremity: Pulses equal, no cyanosis. Neurovascular intact. Full, normal range of motion. Neuro: Awake and alert, GCS 15, oriented to person, place, time, and situation. Cranial nerves II-XII grossly intact. Motor strength 5/5 in all extremities. Sensory grossly intact. Cerebellar exam normal. Normal gait. Vital Signs: 19:20 BP 130 / 69; Pulse 87; Resp 18; Temp 97.0; Pulse Ox 100% on R/A; Weight 72.57 kg (R); aj1 Height 5 ft. 5 in. (165.10 cm) (R); Pain 7/10; 20:30 BP 113 / 84; Pulse 85; Resp 18; Pulse Ox 100% on R/A; ca1 19:20 Body Mass Index 26.63 (72.57 kg, 165.10 cm) aj1 MDM: 20:04 Patient medically screened. jr8 20:42 Data reviewed: vital signs, nurses notes, lab test result(s), radiologic studies, plain jr8 films, and as a result, I will discharge patient. Data interpreted: Pulse oximetry: on room air is 100 %. Interpretation: normal. Counseling: I had a detailed discussion with the patient and/or guardian regarding: the historical points, exam findings, and any diagnostic results supporting the discharge/admit diagnosis, lab results, radiology results, the need for outpatient follow up, a family practitioner, to return to the emergency department if symptoms worsen or persist or if there are any questions or concerns that arise at home. Response to treatment: the patient's symptoms have markedly improved after treatment. 09/15 20:12 Order name: Glucose, Ancillary Testing; Complete Time: 20:15 EDMS 09/15 20:04 Order name: XRAY Abdomen 1 View (KUB); Complete Time: 21:02 aa1 09/15 20:04 Order name: FSBS; Complete Time: 20:12 aa1 Administered Medications: 20:08 Drug: Zofran 4 mg Route: PO; ca1 20:51 Follow up: Response: No adverse reaction; Nausea is decreased ca1 Disposition: 21:09 Co-signature as Attending Physician, Benja Banks MD. pkl Disposition: 09/15/18 20:42 Discharged to Home. Impression: Nausea. - Condition is Stable. - Discharge Instructions: Nausea and Vomiting, Adult. - Prescriptions for Zofran 4 mg Oral Tablet - take 1 tablet by ORAL route every 8 hours As needed; 20 tablet. Miralax 17 gram/dose Oral - take 1 packet by ORAL route once daily dilute powder in 8 ounces of water or juice; 1 box. - Medication Reconciliation Form, Thank You Letter, Antibiotic Education, Prescription Opioid Use form. - Follow up: Colleen, Mo, MD; When: 2 - 3 days; Reason: Recheck today's complaints, Continuance of care, Re-evaluation by your physician. - Problem is new. - Symptoms have improved. Signatures: Dispatcher [employer] EDJanine Washington RN RN aj1 Debra Bingham RN RN aa1 Benja Banks MD MD pkl Roszak, Josh, PA PA jr8 Heavenly Paredes RN RN ca1 Corrections: (The following items were deleted from the chart) 21:07 20:42 09/15/2018 20:42 Discharged to Home. Impression: Nausea. Condition is Stable. ca1 Forms are Medication Reconciliation Form, Thank You Letter, Antibiotic Education, Prescription Opioid Use. Follow up: Mo Macias; When: 2 - 3 days; Reason: Recheck today's complaints, Continuance of care, Re-evaluation by your physician. Problem is new. Symptoms have improved. jr8
--- NOTE | 2018-09-15 20:43 | ER ---
Nurse's Notes [facility] Name: Mildred Kelly Age: 68 yrs Sex: Female : 1950 Arrival Date: 09/15/2018 Time: 19:01 Bed 7 Private MD: Mo Macias Diagnosis: Nausea Presentation: 09/15 19:12 Presenting complaint: Child states: "Last week she was in here she was put in the [facility] because she has an infection on her toe. They did an MRI and they said she didn't have infection in her bone,but they put in a PICC line and she was coming up here for antibiotics. Yesterday they took out the PICC line and put her on pills. She's took it last night and she's been throwing up and having heartburn. She didn't even take her pill today.". Transition of care: patient was not received from another setting of care. Onset of symptoms was September 14, 2018. Risk Assessment: Do you want to hurt yourself or someone else? Patient reports no desire to harm self or others. Initial Sepsis Screen: Does the patient meet any 2 criteria? No. Patient's initial sepsis screen is negative. Does the patient have a suspected source of infection? No. Patient's initial sepsis screen is negative. Care prior to arrival: None. 19:12 Method Of Arrival: Wheelchair [facility] 19:12 Acuity: JANE 3 [facility] Triage Assessment: 19:20 General: Appears in no apparent distress. comfortable, Behavior is calm, cooperative, aj1 appropriate for age. Pain: Complains of pain in back Pain currently is 7 out of 10 on a pain scale. Neuro: Level of Consciousness is awake, alert, obeys commands. Cardiovascular: Patient's skin is warm and dry. Respiratory: Airway is patent Respiratory effort is even, unlabored, Respiratory pattern is regular, symmetrical. Historical: - Allergies: 19:20 No Known Allergies; aj - Home Meds: 19:20 pravastatin 40 mg oral tab 1 tab once daily [Active]; Lasix 40 mg Oral tab 1 tab once aj1 daily [Active]; glimepiride 4 mg Oral tab 1 tab twice daily [Active]; metformin 1,000 mg Oral tab 1 tab 2 times per day [Active]; naproxen 500 mg Oral TbEC 1 tab 2 times per day [Active]; metoprolol tartrate 50 mg Oral tab 1 tab 2 times per day [Active]; Lyrica 75 mg Oral 2 times per day [Active]; Levaquin 750 mg Oral tab 1 tab once daily [Active]; - PMHx: 19:20 Hyperlipidemia; Hypertension; Diabetes - NIDDM; neuropathy; CHF; triple bypass; aj1 - Immunization history:: Flu vaccine is up to date. - Social history:: Smoking status: Patient/guardian denies using tobacco. - Ebola Screening: : Patient denies travel to an Ebola-affected area in the 21 days before illness onset. Screenin:40 Abuse screen: Denies threats or abuse. Denies injuries from another. Nutritional ca1 screening: No deficits noted. Tuberculosis screening: No symptoms or risk factors identified. Fall Risk None identified. Assessment: 19:40 General: Appears in no apparent distress. ill, Behavior is calm, cooperative, ca1 appropriate for age. Pain: Complains of pain in abdomen Pain currently is 7 out of 10 on a pain scale. Pain began today. Neuro: Level of Consciousness is awake, alert, obeys commands, Oriented to person, place, time, situation. Cardiovascular: Heart tones S1 S2 present Capillary refill < 3 seconds Patient's skin is warm and dry. Respiratory: Airway is patent Trachea midline Respiratory effort is even, unlabored, Respiratory pattern is regular, symmetrical, Breath sounds are clear bilaterally. GI: Abdomen is flat, non-distended, Bowel sounds present X 4 quads. Abd is soft X 4 quads Abdomen is tender to palpation Reports constipation, nausea, vomiting, since yesterday. : No signs and/or symptoms were reported regarding the genitourinary system. EENT: No signs and/or symptoms were reported regarding the EENT system. Derm: Skin is intact, is healthy with good turgor, Skin is pink, warm \\T\\ dry. Musculoskeletal: Circulation, motion, and sensation intact. Range of motion: intact in all extremities. 20:30 Reassessment: Patient appears in no apparent distress at this time. Patient and/or ca1 family updated on plan of care and expected duration. Pain level reassessed. Patient is alert, oriented x 3, equal unlabored respirations, skin warm/dry/pink. Vital Signs: 19:20 BP 130 / 69; Pulse 87; Resp 18; Temp 97.0; Pulse Ox 100% on R/A; Weight 72.57 kg (R); aj1 Height 5 ft. 5 in. (165.10 cm) (R); Pain 7/10; 20:30 BP 113 / 84; Pulse 85; Resp 18; Pulse Ox 100% on R/A; ca1 19:20 Body Mass Index 26.63 (72.57 kg, 165.10 cm) aj1 ED Course: 19:01 Patient arrived in ED. sb2 19:02 Mo Macias MD is Private Physician. sb2 19:16 Triage completed. aj1 19:20 Arm band placed on Patient placed in an exam room. aj1 19:29 Heavenly Paredes, BRETT is Primary Nurse. ca1 19:40 Patient has correct armband on for positive identification. Bed in low position. Call ca1 light in reach. Side rails up X 1. Pulse ox on. NIBP on. Warm blanket given. 20:02 Hugo Pino PA is PHCP. aa1 20:02 Benja Banks MD is Attending Physician. aa1 20:30 X-ray completed. Portable x-ray completed in exam room. la2 20:34 XRAY Abdomen 1 View (KUB) In Process Unspecified. EDMS 20:42 Mo Macias MD is Referral Physician. jr8 21:05 No provider procedures requiring assistance completed. Patient did not have IV access ca1 during this emergency room visit. Administered Medications: 20:08 Drug: Zofran 4 mg Route: PO; ca1 20:51 Follow up: Response: No adverse reaction; Nausea is decreased ca1 Outcome: 20:42 Discharge ordered by . jr8 21:05 Discharged to home via wheelchair, with son. ca1 21:05 Condition: stable 21:05 Discharge instructions given to patient, family, Instructed on discharge instructions, follow up and referral plans. medication usage, Demonstrated understanding of instructions, follow-up care, medications, Prescriptions given X 2. 21:07 Patient left the ED. ca1 Signatures: Dispatcher [employer] EDMS Janine Tijerina RN RN aj1 Debra Bingham RN RN aa1 Hugo Pino PA PA jr8 Marlyn Robles la2 Susan Solis sb2 Acob, Heavenly, RN RN ca1
--- NOTE | 2018-09-15 21:00 | RAD REPORT ---
EXAM DESCRIPTION: RAD - Abdomen 1 View (KUB) - 09/15/2018 8:34 pm CLINICAL HISTORY: Abdomen pain. FINDINGS: The bowel gas pattern is unremarkable. A moderate amount of stool is present within the colon. Vascular calcifications are present.
[2018-09-15 21:12] VITALS: TEMP 97; O2SAT 100
[2018-09-15 21:13] VITALS: BP 113/84
== END 2018-09-15 21:07 | disposition home or self-care (01) ==
LOC: ER 18:59
DX: R11.0 Nausea (principal); E78.5 Hyperlipidemia, unspecified; E11.40 Type 2 diabetes mellitus with diabetic neuropathy, unspecified; I11.0 Hypertensive heart disease with heart failure; I50.9 Heart failure, unspecified; M86.9 Osteomyelitis, unspecified; Z79.2 Long term (current) use of antibiotics; Z79.84 Long term (current) use of oral hypoglycemic drugs; Z79.1 Long term (current) use of non-steroidal anti-inflammatories (NSAID); Z79.899 Other long term (current) drug therapy; Z95.1 Presence of aortocoronary bypass graft
CPT/HCPCS: 74018; 82962; 99284

== ENCOUNTER 2019-01-18 20:34 | Inpatient (IN) | payer OTHER ==
--- OUTSIDE RECORDS SUMMARY | 2019-01-18 20:37 | XMS REPORT ---
[...] Dosage System Date Date BD Pen Needle [facility] 10675136323 32G X 4 MM SQ May 11, Active as directed [place] U/F once a day 2017 Results No Known Results Summary Purpose eClinicalWorks Submission
--- OUTSIDE RECORDS SUMMARY | 2019-01-18 20:37 | XMS REPORT ---
[...] End Status Dosage System Date Date Santyl [facility] 69988506507 250 UNIT/GM Apr 24, May 08, Active 1 application Externally Once 2017 2017 to affected a day area Lyrica ND 90307505555 75 MG Orally Apr 23, Active 1 capsule Twice a day 2017 Metformin HCl ND 89639941470 1000 MG Orally Active 1 tablet with Twice a day a meal Victoza [facility] 62284488357 18 MG/3ML March 19Sep 15, Active 1.2 mg Subcutaneous 2017 2017 daily Pravastatin ND 15556414005 40 MG Orally Active 1 tablet Sodium Once a day Potassium ND 02448051373 20 MEQ Orally Active 1 tablet with Chloride Jackeline Once a day food ER Metoprolol ND 56047305813 50 MG Orally Active 1 tablet with Tartrate Twice a day food Furosemide ND 81895851347 40 MG Orally Active 1 tablet Once a day Naproxen ND 21664027185 500 MG Orally Active 1 tablet Twice a day Clopidogrel ND 89655374254 75 MG Orally Active 1 tablet Bisulfate Once a day Results No Known Results Summary Purpose eClinicalWorks Submission
--- OUTSIDE RECORDS SUMMARY | 2019-01-18 20:37 | XMS REPORT ---
[...] End Status Dosage System Date Date Naproxen [facility] 46489675899 500 MG Orally Active 1 tablet Twice a day Clopidogrel [facility] 65519796045 75 MG Orally Active 1 tablet Bisulfate Once a day Bactrim DS [facility] 54789678919 800-160 MG Active 1 tablet Orally Twice a day x2wks Augmentin [facility] 96827565397 250-62.5 MG/5ML Active 1 tablet Orally QD x2wks Pravastatin ND 97784319387 40 MG Orally Active 1 tablet Sodium Once a day Lyrica ND 93808516872 75 MG Orally Inactive 1 capsule Once a day Glimepiride ND 45357348553 4 MG Orally Active 1 tablet twice a day with breakfast or the first main meal of the day Cleocin ND 12117665629 150 MG Orally Active 2 capsules Once a day x2wks Furosemide [facility] 91712494418 40 MG Orally Active 1 tablet Once a day Potassium [facility] 10215507284 20 MEQ Orally Active 1 tablet Chloride Jackeline Once a day with food ER Metoprolol ND 53831393385 50 MG Orally Active 1 tablet Tartrate Twice a day with food Metformin HCl [facility] 49290015853 1000 MG Orally Active 1 tablet Twice a day with a meal Results No Known Results Summary Purpose eClinicalWorks Submission
--- OUTSIDE RECORDS SUMMARY | 2019-01-18 20:37 | XMS REPORT ---
[...] End Status Dosage System Date Date Glimepiride [facility] 93383473284 4 MG Orally March Inactive 1 tablet twice a day 2017 breakfast or the first main meal of the day Augmentin [facility] 57423106879 250-62.5 MG/5ML March Active 1 tablet Orally QD x2wks 2017 Bactrim DS [facility] 23010124498 800-160 MG March Active 1 tablet Orally Twice a x2wks 2017 Pravastatin [facility] 18597226705 40 MG Orally Active 1 tablet Sodium Once a day Metformin HCl ND 55579295471 1000 MG Orally Active 1 tablet Twice a day with a meal Clopidogrel [facility] 70498853276 75 MG Orally Active 1 tablet Bisulfate Once a day Potassium ND 62403022794 20 MEQ Orally Active 1 tablet Chloride Jackeline Once a day with food ER Metoprolol [facility] 01954483702 50 MG Orally Active 1 tablet Tartrate Twice a day with food Furosemide [facility] 55899989923 40 MG Orally Active 1 tablet Once a day Cleocin [facility] 38442611532 150 MG Orally March Active 2 capsules Once a day , x2wks 2017 Victoza [facility] 73876117187 18 MG/3ML March 19Sep 15, Active 1.2 mg Subcutaneous 2017 2017 daily Naproxen [facility] 19178230134 500 MG Orally Active 1 tablet Twice a day Results No Known Results Summary Purpose eClinicalWorks Submission
--- OUTSIDE RECORDS SUMMARY | 2019-01-18 20:37 | XMS REPORT ---
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, macular edema presence unspecified Problem Peripheral vascular disease due to E13.51 Active secondary diabetes Problem Pure hypercholesterolemia E78.00 Active Problem Encounter for gynecological Z01.419 Active examination without abnormal finding Problem Traumatic ulcer, limited to L98.491 Active breakdown of skin Problem Postmenopausal Z78.0 Active Problem Essential hypertension I10 Active Problem Diabetic polyneuropathy associated E11.42 Active with type 2 diabetes mellitus Problem Diabetic nephropathy associated E11.21 Active with type 2 diabetes mellitus Problem Diabetes 1.5, 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
--- OUTSIDE RECORDS SUMMARY | 2019-01-18 20:37 | XMS REPORT ---
:1950 Author Organization eClinicalWorks Care Team Providers Name Role Phone Mo Macias Provider Role Unavailable Allergies, Adverse Reactions, Alerts Substance Reaction Event Type N.K.D.A. 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, macular edema presence unspecified Problem Peripheral vascular disease due to E13.51 Active secondary diabetes Problem Pure hypercholesterolemia E78.00 Active Assessment Acute hematogenous osteomyelitis M86.072 Active of left foot Problem Encounter for gynecological Z01.419 Active examination [...] Date Status Dosage System Date One Touch [facility] 852417944787 1 In Vitro Jul 09December Active as directed Ultra Test twice daily 2017 Strips Victoza [facility] 48770433007 18 MG/3ML Active 1.2 mg Subcutaneous daily Metformin HCl [facility] 78936713667 1000 MG Orally Active 1 tablet Twice a day with a meal Metoprolol [facility] 52960286081 50 MG Orally Active 1 tablet Tartrate Twice a day with food Clopidogrel ND 94858805047 75 MG Orally Active 1 tablet Bisulfate Once a day Naproxen ND 12963875576 500 MG Orally Active 1 tablet Twice a day Lyrica ND 93106647648 75 MG Orally Apr 23, Active 1 capsule Twice a day 2017 Potassium [facility] 86009281192 20 MEQ Orally Active 1 tablet Chloride Jackeline Once a day with food ER Pravastatin [facility] 31706032981 40 MG Orally Active 1 tablet Sodium Once a day Furosemide [facility] 56081572758 40 MG Orally Active 1 tablet Once a day One Touch ND 0 Lancet subq Jul 09, Active 1 lancet Delica Lancets twice daily 2017 BD Pen Needle [facility] 99635322800 32G X 4 MM SQ May 11, Active as directed [place] U/F once a day 2017 Results No Known Results Summary Purpose eClinicalWorks Submission
--- OUTSIDE RECORDS SUMMARY | 2019-01-18 20:37 | XMS REPORT ---
:1950 Author Organization [facility] Address [address] [place] [address] [address] [place] [address] Care Team Providers Name Role Phone Unavailable Unavailable Unavailable Problems This patient has no known problems. Allergies, Adverse Reactions, Alerts This patient has no known allergies or adverse reactions. Medications This patient has no known medications.
--- OUTSIDE RECORDS SUMMARY | 2019-01-18 20:37 | XMS REPORT ---
[...] Dosage System Date Date BD Pen Needle [facility] 06563654715 32G X 4 MM SQ May 11, Active as directed [place] U/F once a day 2017 Results No Known Results Summary Purpose eClinicalWorks Submission
--- OUTSIDE RECORDS SUMMARY | 2019-01-18 20:37 | XMS REPORT ---
[...] Start End Date Status Dosage Date Naproxen [facility] 10670095368 500 MG Orally Active 1 tablet Twice a day Lyrica [facility] 10817003383 75 MG Orally Apr 23, Active 1 capsule Twice a day 2017 Victoza [facility] 50972518207 18 MG/3ML March 19, Sep 15, Active 1.2 mg Subcutaneous 2017 2018 daily Results No Known Results Summary Purpose eClinicalWorks Submission
--- OUTSIDE RECORDS SUMMARY | 2019-01-18 20:38 | XMS REPORT ---
[...] Start End Status Dosage System Date Date Metoprolol [facility] 62757608419 50 MG Orally Active 1 tablet Tartrate Twice a day with food Furosemide ND 88596126752 40 MG Orally Active 1 tablet Once a day Metformin HCl ND 50447836480 1000 MG Orally Active 1 tablet Twice a day with a meal Clopidogrel ND 47831102937 75 MG Orally Active 1 tablet Bisulfate Once a day Pravastatin ND 93813871225 40 MG Orally Active 1 tablet Sodium Once a day Potassium [facility] 96593208309 20 MEQ Orally Active 1 tablet Chloride Jackeline Once a day with food ER BD Pen Needle [facility] 77196299864 32G X 4 MM SQ May 11, Active as directed [place] U/F once a day 2017 Naproxen ND 95018943819 500 MG Orally Active 1 tablet Twice a day Victoza ND 37099348698 18 MG/3ML Active 1.2 mg Subcutaneous daily Lyrica ND 28992711110 75 MG Orally Apr 23, Active 1 capsule Twice a day 2017 Results No Known Results Summary Purpose eClinicalWorks Submission
--- OUTSIDE RECORDS SUMMARY | 2019-01-18 20:38 | XMS REPORT ---
[...] 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 Medications No Known Medications Results No Known Results Summary Purpose eClinicalWorks Submission
--- OUTSIDE RECORDS SUMMARY | 2019-01-18 20:38 | XMS REPORT ---
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 Problem Encounter for gynecological Z01.419 Active [...] Start End Date Status Dosage System Date Clopidogrel ND 48802666731 75 MG Orally Active 1 tablet Bisulfate Once a day Furosemide ND 83802898823 40 MG Orally Active 1 tablet Once a day Lyrica ND 61669120390 75 MG Orally Apr 23, Active 1 capsule Twice a day 2017 Potassium ND 25348458200 20 MEQ Orally Active 1 tablet Chloride Jackeline Once a day with food ER Pravastatin ND 15801454195 40 MG Orally Active 1 tablet Sodium Once a day Metoprolol ND 81700580409 50 MG Orally Active 1 tablet Tartrate Twice a day with food Metformin HCl ND 92678638078 1000 MG Orally Active 1 tablet Twice a day with a meal One Touch [facility] 617186684946 1 In Vitro Jul 09December Active as directed Ultra Test twice daily 2018 2018 Strips One Touch NDC 0 Lancet subq Jul 09, Active 1 lancet Delica Lancets twice daily 2017 Results No Known Results Summary Purpose eClinicalWorks Submission
[2019-01-18 22:12] LABS: Absolute Lymphocytes (CBC) 1.4 K/uL (0.7-4.9); Absolute Monocytes 0.7 K/uL (0.1-1.3); Absolute Neutrophil 7.2 K/uL (1.8-8.0); Eosinophils % 1.2 % (0-4.4); Hematocrit 29.7 % (36.0-45.0); Lymphocytes % 14.4 % (15.3-44.8); RBC Red Blood Cell Count 3.68 M/uL (3.86-4.86)
[2019-01-18 22:16] LABS: Protime INR 1.07
[2019-01-18 22:42] LABS: ALT/SGPT 12 U/L (12-78); AST/SGOT 11 U/L (15-37); Albumin 3.1 g/dL (3.4-5.0); Alkaline Phosphatase 140 U/L (45-117); BUN Blood Urea Nitrogen 28 mg/dL (7-18); Bicarbonate 25 mmol/L (21-32); Bilirubin Direct < 0.1 mg/dL (0-0.2); Bilirubin Total 0.4 mg/dL (0.2-1.0); CKMB Creatine Kinase MB 1.3 ng/mL (0.3-3.6); Creatine Phosphokinase 81 U/L (26-192); Lipase 175 U/L (73-393); Potassium 4.4 mmol/L (3.5-5.1); Protein, Total 7.8 g/dL (6.4-8.2); Sodium Level 134 mmol/L (136-145); Troponin (Emerg Dept Use Only) < 0.02 ng/mL (0.0-0.045)
[2019-01-18 22:43] LABS: Glucose Level 501 mg/dL (74-106)
--- NOTE | 2019-01-18 22:58 | ER ---
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 Transition of care: patient was not received from another setting of care. Onset of symptoms was January 18, 2019. Risk Assessment: Do you want to hurt yourself or someone else? Patient reports no desire to harm self or others. Initial Sepsis Screen: Does the patient meet any 2 criteria? No. Patient's initial sepsis screen is negative. Does the patient have a suspected source of infection? No. Patient's initial sepsis screen is negative. Care prior to arrival: None. 20:49 Method Of Arrival: Ambulatory ed1 20:49 Acuity: JANE 3 ed1 Triage Assessment: 20:54 General: Appears in no apparent distress. Behavior is calm, cooperative. Pain: ed1 Complains of pain in left foot Pain currently is 3 out of 10 on a pain scale. Historical: - Allergies: 20:54 Bactrim; ed1 20:54 Levaquin; ed1 - Home Meds: 20:54 metformin 1,000 mg Oral tab 1 tab 2 times per day [Active]; glimepiride 4 mg Oral tab 1 ed1 tab twice daily [Active]; Lasix 40 mg Oral tab 1 tab once daily [Active]; Lyrica 75 mg Oral 2 times per day [Active]; metoprolol tartrate 50 mg Oral tab 1 tab 2 times per day [Active]; naproxen 500 mg Oral TbEC 1 tab 2 times per day [Active]; pravastatin 40 mg Oral tab 1 tab once daily [Active]; - PMHx: 20:54 CHF; Diabetes - NIDDM; Hyperlipidemia; Hypertension; neuropathy; ed1 - PSHx: 20:54 Triple Bypass; ed1 - Immunization history:: Adult Immunizations up to date. - Social history:: Smoking status: Patient/guardian denies using tobacco. - Ebola Screening: : Patient negative for fever greater than or equal to 101.5 degrees Fahrenheit, and additional compatible Ebola Virus Disease symptoms Patient denies exposure to infectious person Patient denies travel to an Ebola-affected area in the 21 days before illness onset No symptoms or risks identified at this time. - Family history:: not pertinent. Screenin:20 Abuse screen: Denies threats or abuse. Nutritional screening: No deficits noted. jd3 Tuberculosis screening: No symptoms or risk factors identified. Fall Risk Ambulatory Aid- None/Bed Rest/Nurse Assist (0 pts). Gait- Normal/Bed Rest/Wheelchair (0 pts) Mental Status- Oriented to own ability (0 pts). Total Alcantar Fall Scale indicates No Risk (0-24 pts). Assessment: 21:18 General: Appears in no apparent distress. uncomfortable, Behavior is calm, cooperative, jd3 appropriate for age. Pain: Complains of pain in lateral side of left foot Quality of pain is described as aching, tender. Neuro: Level of Consciousness is awake, alert, obeys commands, Oriented to person, place, time, situation, Appropriate for age. Cardiovascular: Capillary refill < 3 seconds Patient's skin is warm and dry. Respiratory: Airway is patent Respiratory effort is even, unlabored, Respiratory pattern is regular, symmetrical. GI: No signs and/or symptoms were reported involving the gastrointestinal system. : No signs and/or symptoms were reported regarding the genitourinary system. EENT: No signs and/or symptoms were reported regarding the EENT system. Derm: Skin is intact, Skin is dry, Skin is normal, Skin temperature is warm Wound noted lateral side of left foot Wound is open, red, white drainage noted. Musculoskeletal: Circulation, motion, and sensation intact. Range of motion: intact in all extremities. 22:49 Reassessment: Patient appears in no apparent distress at this time. Patient and/or jd3 family updated on plan of care and expected duration. Pain level reassessed. Patient is alert, oriented x 3, equal unlabored respirations, skin warm/dry/pink. 23:34 Reassessment: Patient appears in no apparent distress at this time. Patient and/or jd3 family updated on plan of care and expected duration. Pain level reassessed. Patient is alert, oriented x 3, equal unlabored respirations, skin warm/dry/pink. 01/19 00:42 Reassessment: Patient appears in no apparent distress at this time. Patient and/or jd3 family updated on plan of care and expected duration. Pain level reassessed. Patient is alert, oriented x 3, equal unlabored respirations, skin warm/dry/pink. Vital Signs: 01/18 20:54 BP 124 / 85; Pulse 83; Resp 20; Temp 97.9(TE); Pulse Ox 99% on R/A; Weight 65.77 kg; ed1 Height 5 ft. 5 in. (165.10 cm); Pain 3/10; 22:48 BP 103 / 79; Pulse 72; Resp 16 S; Pulse Ox 99% on R/A; jd3 23:34 BP 142 / 64; Pulse 69; Resp 19 S; Pulse Ox 97% on R/A; jd3 01/19 00:41 BP 108 / 73; Pulse 63; Resp 19 S; Pulse Ox 100% on R/A; jd3 01:51 BP 100 / 64; Pulse 63; Resp 17 S; Pulse Ox 100% on R/A; jd3 01/18 20:54 Body Mass Index 24.13 (65.77 kg, 165.10 cm) ed1 ED Course: 01/18 20:47 Patient arrived in ED. es 20:50 Triage completed. ed1 20:54 Arm band placed on left wrist. ed1 21:17 Marcelo Sims, RN is Primary Nurse. jd3 21:20 Patient has correct armband on for positive identification. Bed in low position. Call j light in reach. Side rails up X 1. 21:40 Inserted saline lock: 20 gauge in right antecubital area, using aseptic technique. jd3 Blood collected. 21:56 Ehsan Montague MD is Attending Physician. travis 22:11 Foot Left 3 View XRAY In Process Unspecified. EDMS 22:42 Notified ED physician of a critical lab result(s). glucose 501. 22:56 Jet Lacey MD is Hospitalizing Provider. [facility] 01/19 01:52 No provider procedures requiring assistance completed. Patient admitted, IV remains in jd3 place. Administered Medications: 01/18 23:10 Drug: Insulin Regular Human 10 units {Co-Signature: tl1 (April Lasagna RN).} Route: jd3 IVP; Site: right antecubital; 01/19 00:10 Follow up: Response: No adverse reaction j 01/18 23:10 Drug: Insulin Regular Human 10 units {Co-Signature: tl1 (April Morgan RN).} Route: jd3 Sub-Q; Site: abdomen; 01/19 00:10 Follow up: Response: No adverse reaction jd3 01/18 23:18 Drug: Zosyn 3.375 grams Route: IVPB; Infused Over: 60 mins; Site: right antecubital; jd3 01/19 00:15 Follow up: Response: No adverse reaction; IV Status: Completed infusion; IV Intake: jd3 100ml 00:05 Drug: vancoMYCIN 1 grams Route: IVPB; Infused Over: 2 hrs; Site: right antecubital; jd3 01:53 Follow up: Response: No adverse reaction; IV Status: Completed infusion; IV Intake: jd3 250ml Point of Care Testing: Blood Glucose: 01/18 22:12 Blood Glucose: High (>450 mg/dL); jd3 01/19 00:50 Blood Glucose: 202 mg/dL; jd3 01/18 22:12 glucose lab ordered per protical. jd3 Ranges: Intake: 01/19 00:15 IV: 100ml; Total: 100ml. jd3 01:53 IV: 250ml; Total: 350ml. jd3 Outcome: 01/18 22:57 Decision to Hospitalize by Provider. travis 01/19 01:52 Admitted to Med/surg accompanied by tech, via wheelchair, room 214, with chart, Report jd3 called to [facility] Condition: stable Instructed on the need for admit, Demonstrated understanding of instructions. 01:54 Patient left the ED. jd3 Signatures: Dispatcher [employer] Ehsan Mckinney MD MD cha Salyer, Edna es Chretien, Felicia RN Gail Feliciano RN RN ed1 Marcelo Sims RN RN jkatelyn Morgan RN tl1
--- NOTE | 2019-01-18 22:58 | EDPHYS ---
Physician Documentation [facility] Name: Mildred Kelly Age: 68 yrs Sex: Female : 1950 Arrival Date: 01/18/2019 Time: 20:47 Bed 5 Private MD: IRVING Physician Ehsan Montague HPI: 01/18 22:51 This 68 yrs old Female presents to ER via Ambulatory with complaints of foot travis infected. 22:51 The patient presents with decreased range of motion, pain, that is acute. The travis complaints affect the left foot. Context: The problem was sustained at home, resulted from a chronic condition, secondary to an old injury. Onset: The symptoms/episode began/occurred 6 week(s) ago. Modifying factors: The symptoms are alleviated by elevation of extremity, the symptoms are aggravated by weight bearing, movement, wearing shoes. Associated signs and symptoms: Pertinent positives: of the arch of left foot and dorsum of left foot, rash, warmth. Severity of symptoms: At their worst the symptoms were moderate, in the emergency department the symptoms are unchanged. The patient has experienced similar episodes in the past, multiple times. Historical: - Allergies: 20:54 Bactrim; ed1 20:54 Levaquin; ed1 - Home Meds: 20:54 metformin 1,000 mg Oral tab 1 tab 2 times per day [Active]; glimepiride 4 mg Oral tab 1 ed1 tab twice daily [Active]; Lasix 40 mg Oral tab 1 tab once daily [Active]; Lyrica 75 mg Oral 2 times per day [Active]; metoprolol tartrate 50 mg Oral tab 1 tab 2 times per day [Active]; naproxen 500 mg Oral TbEC 1 tab 2 times per day [Active]; pravastatin 40 mg Oral tab 1 tab once daily [Active]; - PMHx: 20:54 CHF; Diabetes - NIDDM; Hyperlipidemia; Hypertension; neuropathy; ed1 - PSHx: 20:54 Triple Bypass; ed1 - Immunization history:: Adult Immunizations up to date. - Social history:: Smoking status: Patient/guardian denies using tobacco. - Ebola Screening: : Patient negative for fever greater than or equal to 101.5 degrees Fahrenheit, and additional compatible Ebola Virus Disease symptoms Patient denies exposure to infectious person Patient denies travel to an Ebola-affected area in the 21 days before illness onset No symptoms or risks identified at this time. - Family history:: not pertinent. ROS: 22:51 Constitutional: Negative for fever, chills, and weight loss, Eyes: Negative for injury, travis pain, redness, and discharge, ENT: Negative for injury, pain, and discharge, Neck: Negative for injury, pain, and swelling, Cardiovascular: Negative for chest pain, palpitations, and edema, Respiratory: Negative for shortness of breath, cough, wheezing, and pleuritic chest pain, Abdomen/GI: Negative for abdominal pain, nausea, vomiting, diarrhea, and constipation, Back: Negative for injury and pain, : Negative for injury, bleeding, discharge, and swelling, Skin: Negative for injury, rash, and discoloration, Neuro: Negative for headache, weakness, numbness, tingling, and seizure, Psych: Negative for depression, anxiety, suicide ideation, homicidal ideation, and hallucinations, Allergy/Immunology: Negative for hives, rash, and allergies, Endocrine: Negative for neck swelling, polydipsia, polyuria, polyphagia, and marked weight changes, Hematologic/Lymphatic: Negative for swollen nodes, abnormal bleeding, and unusual bruising. 22:51 MS/extremity: Positive for decreased range of motion, pain, swelling, tenderness, of the left foot. Exam: 22:51 Constitutional: This is a well developed, well nourished patient who is awake, alert, travis and in no acute distress. Head/Face: Normocephalic, atraumatic. Eyes: Pupils equal round and reactive to light, extra-ocular motions intact. Lids and lashes normal. Conjunctiva and sclera are non-icteric and not injected. Cornea within normal limits. Periorbital areas with no swelling, redness, or edema. ENT: Nares patent. No nasal discharge, no septal abnormalities noted. Tympanic membranes are normal and external auditory canals are clear. Oropharynx with no redness, swelling, or masses, exudates, or evidence of obstruction, uvula midline. Mucous membranes moist. Neck: Trachea midline, no thyromegaly or masses palpated, and no cervical lymphadenopathy. Supple, full range of motion without nuchal rigidity, or vertebral point tenderness. No Meningismus. Chest/axilla: Normal chest wall appearance and motion. Nontender with no deformity. No lesions are appreciated. Cardiovascular: Regular rate and rhythm with a normal S1 and S2. No gallops, murmurs, or rubs. Normal PMI, no JVD. No pulse deficits. Respiratory: Lungs have equal breath sounds bilaterally, clear to auscultation and percussion. No rales, rhonchi or wheezes noted. No increased work of breathing, no retractions or nasal flaring. Abdomen/GI: Soft, non-tender, with normal bowel sounds. No distension or tympany. No guarding or rebound. No evidence of tenderness throughout. Back: No spinal tenderness. No costovertebral tenderness. Full range of motion. Neuro: Awake and alert, GCS 15, oriented to person, place, time, and situation. Cranial nerves II-XII grossly intact. Motor strength 5/5 in all extremities. Sensory grossly intact. Cerebellar exam normal. Normal gait. Psych: Awake, alert, with orientation to person, place and time. Behavior, mood, and affect are within normal limits. 22:51 Skin: Appearance: Moisture: dry, petechiae, not noted, ecchymosis, not noted, that are moderate, of the arch of left foot and dorsum of left foot, red, tender, area of necrosis 2x3 cm, swelling, cellulitis. Vital Signs: 20:54 BP 124 / 85; Pulse 83; Resp 20; Temp 97.9(TE); Pulse Ox 99% on R/A; Weight 65.77 kg; ed1 Height 5 ft. 5 in. (165.10 cm); Pain 3/10; 22:48 BP 103 / 79; Pulse 72; Resp 16 S; Pulse Ox 99% on R/A; jd3 23:34 BP 142 / 64; Pulse 69; Resp 19 S; Pulse Ox 97% on R/A; jd3 01/19 00:41 BP 108 / 73; Pulse 63; Resp 19 S; Pulse Ox 100% on R/A; jd3 01:51 BP 100 / 64; Pulse 63; Resp 17 S; Pulse Ox 100% on R/A; jd3 01/18 20:54 Body Mass Index 24.13 (65.77 kg, 165.10 cm) ed1 MDM: 01/18 21:56 Patient medically screened. [facility] 22:51 Data reviewed: vital signs, nurses notes, lab test result(s), EKG, radiologic studies. [facility] 01/18 21:46 Order name: Basic Metabolic Panel; Complete Time: 22:49 tl1 01/18 21:46 Order name: Blood Culture Adult (2) [facility] 01/18 21:46 Order name: CBC with Diff; Complete Time: 22:49 tl1 01/18 21:46 Order name: Ckmb; Complete Time: 22:49 tl1 01/18 21:46 Order name: CPK; Complete Time: 22:49 tl1 01/18 21:46 Order name: Lactate; Complete Time: 00:34 tl1 01/18 21:46 Order name: LFT's; Complete Time: 22:49 tl1 01/18 21:46 Order name: Lipase; Complete Time: 22:49 tl1 01/18 21:46 Order name: Procalcitonin; Complete Time: 00:34 tl1 01/18 21:46 Order name: Protime (+inr); Complete Time: 22:49 1 01/18 21:46 Order name: Ptt, Activated; Complete Time: 22:49 1 01/18 21:46 Order name: Troponin (emerg Dept Use Only); Complete Time: 22:49 1 01/18 21:46 Order name: Urine Microscopic Only; Complete Time: 00:34 1 01/18 22:13 Order name: Glucose; Complete Time: 00:34 jd3 01/18 21:46 Order name: Accucheck; Complete Time: 22:12 tl1 01/18 21:46 Order name: Cardiac monitoring; Complete Time: 21:57 1 01/18 21:46 Order name: EKG - Nurse/Tech; Complete Time: 21:58 1 01/18 21:46 Order name: IV Saline Lock - Large Bore; Complete Time: 21:48 tl1 01/18 21:46 Order name: Labs collected and sent; Complete Time: 21:58 1 01/18 21:46 Order name: O2 Per Protocol; Complete Time: 21:48 tl1 01/18 21:47 Order name: Foot Left 3 View XRAY [facility] 01/18 21:47 Order name: EKG; Complete Time: 21:50 jd3 01/18 22:16 Order name: Glucose, Ancillary Testing; Complete Time: 22:49 EDMS 01/18 22:18 Order name: Glucose, Ancillary Testing EDMS 01/18 22:33 Order name: Urine Dipstick--Ancillary (enter results); Complete Time: 00:34 cm6 01/18 22:48 Order name: Sed Rate; Complete Time: 00:34 travis 01/18 21:46 Order name: O2 Sat Monitoring; Complete Time: 21:48 tl1 01/18 21:46 Order name: Urine Dipstick-Ancillary (obtain specimen); Complete Time: 22:41 tl1 Administered Medications: 23:10 Drug: Insulin Regular Human 10 units {Co-Signature: tl1 (April Morgan RN).} Route: jd3 IVP; Site: right antecubital; 01/19 00:10 Follow up: Response: No adverse reaction [facility] 01/18 23:10 Drug: Insulin Regular Human 10 units {Co-Signature: neha1 (April Morgan RN).} Route: jd3 Sub-Q; Site: abdomen; 01/19 00:10 Follow up: Response: No adverse reaction [facility] 01/18 23:18 Drug: Zosyn 3.375 grams Route: IVPB; Infused Over: 60 mins; Site: right antecubital; jd3 01/19 00:15 Follow up: Response: No adverse reaction; IV Status: Completed infusion; IV Intake: jd3 100ml 00:05 Drug: vancoMYCIN 1 grams Route: IVPB; Infused Over: 2 hrs; Site: right antecubital; jd3 01:53 Follow up: Response: No adverse reaction; IV Status: Completed infusion; IV Intake: jd3 250ml Point of Care Testing: Blood Glucose: 01/18 22:12 Blood Glucose: High (>450 mg/dL); jd3 01/19 00:50 Blood Glucose: 202 mg/dL; jd3 01/18 22:12 glucose lab ordered per protical. j Ranges: Critical Glucose Levels:Adult <50 mg/dl or >400 mg/dl <40 mg/dl or >180 mg/dl Disposition: 01/18/19 22:57 Hospitalization ordered by Jet Lacey for Inpatient Admission. 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 - Bed requested for Telemetry/MedSurg (observation). - Status is Inpatient Admission. jd3 - Condition is Stable. - Problem is new. - Symptoms have improved. UTI on Admission? No Signatures: Dispatcher [employer] EDMS Ehsan Montague MD MD cha Riggs, Erika, RN RN ed1 April Morgan, RN RN tl1 Elisha Lou, RN RN Marcelo Sims RN RN jd3 April Morgan RN tl1 Corrections: (The following items were deleted from the chart) 22:58 22:57 Hospitalization Ordered by Jet Lacey MD for Inpatient Admission. 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 Bed requested for Telemetry/MedSurg (observation). Status is Inpatient Admission. Condition is Stable. Problem is new. Symptoms have improved. UTI on Admission? No. travis 01/19 00:15 01/18 22:58 01/18/2019 22:57 Hospitalization Ordered by Jet Lacey MD for Inpatient cg Admission. 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 Bed requested for Telemetry/MedSurg (observation). Status is Inpatient Admission. Condition is Stable. Problem is new. Symptoms have improved. UTI on Admission? No. travis 01/19 01:54 00:15 01/18/2019 22:57 Hospitalization Ordered by Jet Lacey MD for Inpatient jd3 Admission. 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 Bed requested for Telemetry/MedSurg (observation). Status is Inpatient Admission. Condition is Stable. Problem is new. Symptoms have improved. UTI on Admission? No. cg
[2019-01-18 23:03] LABS: Urine Blood NEGATIVE (NEG); Urine Glucose 2+ (NEG); Urine Protein NEGATIVE (NEG); Urine Specific Gravity <1.005 (1.005-1.030); Urine pH 5.5 (5.0-7.0)
[2019-01-18] MEDS ORDERED: INSULIN -REGULAR HUMAN 50 UNIT/0.5 ML ML ONE (23:09)
[2019-01-18] MEDS ORDERED: NA CHLORIDE 0.9% 250 ML ONE (23:10)
[2019-01-18] MEDS ORDERED: VANCOMYCIN 1 GM/VIAL ONE (23:10)
[2019-01-18] MEDS ORDERED: PIPER/TAZO/NS 3.375gm 3.375 GM/100 ML BAG ONE (23:10)
[2019-01-18 23:22] LABS: Urine Bacteria <20 /HPF (<20)
[2019-01-18 23:23] LABS: Urine Culture Reflex Order NOT NEEDED; Urine RBC NONE SEEN /HPF (NONE SEEN)
--- NOTE | 2019-01-19 00:03 | P.HP ---
Certification for Inpatient Patient admitted to: Inpatient With expected LOS: >2 Midnights Practitioner: I am a practitioner with admitting privileges, knowledge of patient current condition, hospital course, and medical plan of care. Services: Services provided to patient in accordance with Admission requirements found in Title 42 Section 412.3 of the Code of Federal Regulations Patient History Date of Service: 01/18/19 Reason for admission: diabetic foot ulcer History of Present Illness: Ms Kelly is a 68 years old woman with history of IDDM, CAD, HTN who has been dealing with a chronic diabetic wound ulcer on her left foot, followed up by Dr Booth. She was using a shoe that made a new wound obove that. She noticed that in the last couple of days, she developed a black escar, with erythema surrounding. She has had increasing amount of yellowish secretion. The patient denied fever or chills. Lab work remarkable for normal WBC count. She has elevated ESR and lactate but normal procalcitonin. Vital signs stable, afebrile. XR left foot, done awaiting radiology report. Allergies No Known Allergies Allergy (Verified 09/05/18 00:51) Home Medications: Furosemide [Lasix*] 40 mg PO DAILY 05/11/16 Metformin HCl [Metformin ER Osmotic] 1,000 mg PO BID 05/11/16 Metoprolol Tartrate [Lopressor*] 50 mg PO BID 05/11/16 Pravastatin [Pravachol*] 40 mg PO DAILY 05/11/16 Naproxen [Naprosyn] 500 mg PO BID 11/13/17 Pregabalin [Lyrica] 75 mg PO BID 09/04/18 Glimepiride [Amaryl] 2 mg PO BID 09/17/18 levoFLOXacin [Levaquin] 750 mg PO DAILY 09/17/18 - Past Medical/Surgical History Diabetic: Yes -: CAD -: DIABETES -: HTN -: cholesterol -: neuropathy -: CABG X 3 -: cataract sx - Family History Father -: Stroke Sister -: Cancer Mother -: Heart disease - Social History Smoking Status: Never smoker Alcohol use: No CD- Drugs: No Caffeine use: Yes Place of Residence: Home Review of Systems 10-point ROS is otherwise unremarkable Physical Examination - Physical Exam General: Alert, In no apparent distress HEENT: Atraumatic, PERRLA, Mucous membr. moist/pink, EOMI, Sclerae nonicteric Neck: Supple, 2+ carotid pulse no bruit, No LAD, Without JVD or thyroid abnormality Respiratory: Clear to auscultation bilaterally, Normal air movement Cardiovascular: Regular rate/rhythm, Normal S1 S2 Gastrointestinal: Normal bowel sounds, No tenderness Musculoskeletal: No tenderness Integumentary: Skin lesion, Tenderness/swelling, Diabetic ulcer (left foot) Neurological: Normal gait, Normal speech, Normal strength at 5/5 x4 extr, Normal tone, Normal affect Lymphatics: No axilla or inguinal lymphadenopathy - Studies Laboratory Data (last 24 hrs) 01/18/19 22:27: Glucose 492 H* 01/18/19 21:40: PT 12.6 H, INR 1.07, APTT 31.9 01/18/19 21:40: WBC 9.4, Hgb 9.4 L, Hct 29.7 L, Plt Count 469 H 01/18/19 21:40: Sodium 134 L, Potassium 4.4, BUN 28 H, Creatinine 1.28, Glucose 501 H*, Total Bilirubin 0.4, AST 11 L, ALT 12, Alkaline Phosphatase 140 H, Lipase 175 Assessment and Plan - Problems (Diagnosis) (1) Cellulitis Current Visit: Yes Status: Acute Qualifiers: Site of cellulitis: extremity Site of cellulitis of extremity: lower extremity Laterality: left Qualified Code(s): L03.116 - Cellulitis of left lower limb (2) Diabetic foot ulcer Current Visit: Yes Status: Acute Qualifiers: Diabetic foot ulcer location: midfoot Diabetes mellitus type: type 2 Laterality: left Non-pressure ulcer stage: unspecified non-pressure ulcer stage Qualified Code(s): E11.621 - Type 2 diabetes mellitus with foot ulcer; L97.429 - Non-pressure chronic ulcer of left heel and midfoot with unspecified severity (3) Type 2 diabetes mellitus without complications Onset Date: 09/05/18 Current Visit: No Status: Acute Qualifiers: Diabetes mellitus roasterman insulin use: without roasterman use Qualified Code(s): E11.9 - Type 2 diabetes mellitus without complications (4) CAD (coronary artery disease) Onset Date: 05/26/16 Current Visit: No Status: Chronic Qualifiers: Coronary Disease-Associated Artery/Lesion type: [place] artery (5) HTN (hypertension) Onset Date: 09/08/16 Current Visit: No Status: Chronic Qualifiers: Hypertension type: essential hypertension - Plan Will admit the patient to the hospital to start empiric IV antibiotic treatment. Will keep the patient NPO for eventual debridement in AM. Consult Dr Booth. - Advance Directives Does patient have a Living Will: No Does patient have a Durable POA for Healthcare: No - Code Status/Comfort Care Code Status Assessed: Yes Code Status: Full Code
[2019-01-19 02:09] VITALS: BMI 24.5
[2019-01-19] MEDS ORDERED: ONDANSETRON 4 MG/2 ML VIAL IV PRN (02:27)
[2019-01-19] MEDS ORDERED: NA CHLORIDE 0.9% 1,000 ML IV SCH (02:27)
[2019-01-19] MEDS: INSULIN -REGULAR HUMAN 50 UNIT/0.5 ML ML SQ SCH ×5 (02:27→21:02)
[2019-01-19 03:31] LABS: Absolute Monocytes 1.1 K/uL (0.1-1.3); Absolute Neutrophil 5.7 K/uL (1.8-8.0); Basophils % 0.5 % (0-1.3); Eosinophils % 1.3 % (0-4.4); Hematocrit 26.4 % (36.0-45.0); Lymphocytes % 29.9 % (15.3-44.8); MPV 8.1 fL (7.6-11.3); Monocytes % 11.4 % (3.3-12.3); RBC Red Blood Cell Count 3.38 M/uL (3.86-4.86)
[2019-01-19 03:38] LABS: Potassium 3.4 mmol/L (3.5-5.1)
[2019-01-19 04:35] LABS: Magnesium 1.7 mg/dL (1.8-2.4)
[2019-01-19] MEDS: TRAMADOL HCL 50 MG TAB PO PRN ×3 (04:48→20:01)
[2019-01-19] MEDS: KCL 20 MEQ/100 mL IVPB 20 MEQ/100 ML BAG IV SCH ×2 (04:49→08:37)
[2019-01-19] MEDS ORDERED: MAGNESIUM SULFATE 1 gm IVPB 1 GM/100 ML BAG IV ONE (04:52)
[2019-01-19] MEDS ORDERED: PIPERACIL/TAZO 3.375 GM VIAL IV ONE (05:09)
[2019-01-19] MEDS ORDERED: NA CHLORIDE 0.9% 100 ML ONE (05:09)
[2019-01-19] MEDS ORDERED: PIPER/TAZO/NS 3.375gm 3.375 GM/100 ML BAG IVPB SCH ×2 (06:00→14:00)
[2019-01-19] MEDS ORDERED: D5 0.45 NS 1,000 ML IV SCH ×2 (06:00→10:00)
--- NOTE | 2019-01-19 06:47 | EKG ---
Test Date: 2019-01-18 Test Time: 21:51:53 Derrick Man: ARIE MEASUREMENT RESULTS: Intervals: Rate: 74 FL: 132 QRSD: 98 QT: 396 QTc: 439 [place]: P: 12 FL: 132 QRS: -53 T: 40 INTERPRETIVE STATEMENTS: Normal sinus rhythm Left anterior fascicular block Abnormal ECG Compared to ECG 05/25/2016 17:06:31 No significant changes Electronically Signed On 01-19-19 06:46:34 CDT by Andrea Toledo
[2019-01-19 08:11] LABS: Ferritin 21.9 ng/mL (8-388)
[2019-01-19] MEDS: PREGABALIN 75 MG CAP PO SCH ×2 (08:37→21:01)
[2019-01-19] MEDS: METOPROLOL TAR 50 MG TAB PO SCH ×2 (08:37→21:01)
[2019-01-19] MEDS: CLOPIDOGREL 75 MG TABLET PO SCH (08:37)
[2019-01-19] MEDS ORDERED: CEFEPIME 1 GM/VIAL IV SCH (09:00)
--- NOTE | 2019-01-19 09:28 | RAD REPORT ---
EXAM DESCRIPTION: RAD - Foot Left 3 View - 01/18/2019 10:15 pm CLINICAL HISTORY: Left Foot pain FINDINGS: No fracture or dislocation is seen. The bones are osteoporotic. Soft tissue ulceration involves the lateral forefoot. No adjacent bony de structive lesions seen Erosion of the cuboid is nonspecific but may be degenerative in nature Fusion of the talus and calcaneus
[2019-01-19] MEDS: CEFEPIME/SWI 1gm 10 ML IV SCH ×2 (10:46→21:04)
--- NOTE | 2019-01-19 11:13 | P.PN ---
Subjective Date of Service: 01/19/19 Primary Care Provider: Dr. Alcala; Podiatry-Dr. Booth Chief Complaint: diabetic foot ulcer Subjective: Doing well Physical Examination - Vital Signs Temperature: 97.3 F Blood Pressure: 153/72 Pulse: 61 Respirations: 20 Pulse Ox (%): 100 - Physical Exam General: Alert, In no apparent distress, Oriented x3, Cooperative HEENT: Atraumatic Neck: Supple Respiratory: Clear to auscultation bilaterally, Normal air movement Cardiovascular: Normal pulses, Regular rate/rhythm Gastrointestinal: Normal bowel sounds, Soft and benign, Non-distended, No rebound, No guarding Integumentary: Other (Large ulcer noted to the left lateral foot) Neurological: Normal speech, Normal strength at 5/5 x4 extr, Normal tone - Studies Laboratory Data (last 24 hrs) 01/18/19 22:27: Glucose 492 H* 01/18/19 21:40: PT 12.6 H, INR 1.07, APTT 31.9 01/18/19 21:40: WBC 9.4, Hgb 9.4 L, Hct 29.7 L, Plt Count 469 H 01/18/19 21:40: Sodium 134 L, Potassium 4.4, BUN 28 H, Creatinine 1.28, Glucose 501 H*, Total Bilirubin 0.4, AST 11 L, ALT 12, Alkaline Phosphatase 140 H, Lipase 175 Medications List Reviewed: Yes Assessment & Plan Discharge Plan: Home Plan to discharge in: 72 Hours Physician Review Additional Text: Impression: Left diabetic foot ulcer suspect osteomyelitis Diabetes mellitus type 2 Hypertension Iron deficiency anemia Peripheral vascular disease Plan: Left diabetic foot ulcer suspect osteomyelitis: Case discussed with podiatry. No plan for debridement at this time. Will obtain MRI to evaluate for osteomyelitis. IV antibiotics adjusted. Will continue with IV vancomycin and cefepime. Patient may require debridement. Await further podiatry evaluation and recommendation. Continue monitor and treat closely. Diabetes mellitus type 2: Will check A1c. Continue sliding scale. Will monitor for hypoglycemia. Hypertension: Restart home medication. Will monitor and adjust Iron deficiency anemia: Lab reviewed. Patient with iron deficiency. Will start IV iron. Patient will need continued supplementation at discharge. Peripheral vascular disease: Patient seen by Cardiology recently. She appears to have had angioplasty done to her left lower extremity in the recent past. Will continue with Plavix. Continue with DVT prophylaxis. Time Spent Managing Pts Care (In Minutes): 55
--- NOTE | 2019-01-19 11:33 | P.CNS ---
Date of Consult: 01/19/19 Primary Care Provider: Dr. Alcala; Podiatry-Dr. Booth Chief Complaint: diabetic foot ulcer History of Present Illness: Patient states that she had a blister develop 01/14/19. She called the wound care nurse and was instructed to apply santyl to wound and return to [facility] for shoe modification. She visited [facility] then noticed yesterday that her wound was draining and had a foul odor. Patient presented to the ER and was admitted Allergies levofloxacin [From Levaquin] Allergy (Verified 01/19/19 02:46) Nausea/Vomiting Home Medications: Furosemide [Lasix*] 40 mg PO DAILY 05/11/16 Metformin HCl [Metformin ER Osmotic] 1,000 mg PO BID 05/11/16 Metoprolol Tartrate [Lopressor*] 50 mg PO BID 05/11/16 Pravastatin [Pravachol*] 40 mg PO DAILY 05/11/16 Naproxen [Naprosyn] 500 mg PO BID 11/13/17 Pregabalin [Lyrica] 75 mg PO BID 09/04/18 Clopidogrel Bisulfate [Plavix] 1 tab PO DAILY 01/19/19 - Past Medical/Surgical History Diabetic: Yes -: CAD -: DIABETES -: HTN -: cholesterol -: neuropathy -: Left Leg artery clot removed -: CHF -: triple bypass -: CABG X 3 -: cataract sx - Family History Father Medical History: Stroke Sister Medical History: Cancer Mother Medical History: Heart disease - Social History Alcohol use: No CD- Drugs: No Caffeine use: Yes Place of Residence: Home Review of Systems 10-point ROS is otherwise unremarkable Physical Examination Temp Pulse Resp BP Pulse Ox 97.3 F 61 20 153/72 H 100 01/19/19 11:13 01/19/19 11:13 01/19/19 11:13 01/19/19 11:13 01/19/19 11:13 General: Alert, In no apparent distress, Oriented x3 Cardiovascular: No edema, Abnormal pulses (decreased pulses left lower extremity ) Capillary refill: >2 Seconds Musculoskeletal: No clubbing, No swelling, No contractures, No erythema, No tenderness, No warmth Integumentary: Diabetic ulcer (eschar noted lateral left midfoot over shaft of left fifth metatarsal. It is noted to be boggy in nature therefore a bedsided debridement was performed utilizing an I&D kit. After removal of the eschar, purulent drainage was noted with underiming of the wound at 12:00, 6:00 and 3: 00. area was debrided and irrigated with copious amounts of saline. Wound was then packed with saline moistened gauze and aerobe/anaerobic deep cultures were taken. Wound was noted to measure 3.0cm X 2cm with a depth of 0.4cm. a second wound was noted to be proximal to the wound in question and at the base of the left fifth metatarsal. Noted to have large fibrin, no purulence no periwound erythma but did connect to new wound. ) Neurological: Abnormal sensation Laboratory Data (last 24 hrs) 01/18/19 22:27: Glucose 492 H* 01/18/19 21:40: PT 12.6 H, INR 1.07, APTT 31.9 01/18/19 21:40: WBC 9.4, Hgb 9.4 L, Hct 29.7 L, Plt Count 469 H 01/18/19 21:40: Sodium 134 L, Potassium 4.4, BUN 28 H, Creatinine 1.28, Glucose 501 H*, Total Bilirubin 0.4, AST 11 L, ALT 12, Alkaline Phosphatase 140 H, Lipase 175 - Problems (1) Diabetic foot ulcer Current Visit: Yes Status: Acute Plan: 1. Bedside excisional debridement performed with saline wet to dry packing q8h. 2. Continue current iv antibiotics 3. aerobe and anaerobic deep cultures of the wound. 4. MRI to be done on Monday to evaluate for osteomyelitis Qualifiers: Diabetic foot ulcer location: midfoot Diabetes mellitus type: type 2 Laterality: left Non-pressure ulcer stage: unspecified non-pressure ulcer stage Qualified Code(s): E11.621 - Type 2 diabetes mellitus with foot ulcer; L97.429 - Non-pressure chronic ulcer of left heel and midfoot with unspecified severity
[2019-01-19 13:08] LABS: Hematocrit 29.7 % (36.0-45.0)
[2019-01-19] MEDS ORDERED: GABAPENTIN 100 MG CAP PO PRN (14:59)
[2019-01-19] MEDS: HYDROCODONE/APAP 7.5/325 MG TAB PO PRN (15:12)
[2019-01-19] MEDS: ATORVASTATIN 10 MG TAB PO SCH (21:01)
[2019-01-19] MEDS ORDERED: VANCOMYCIN 1.25 GM in NA CHLORIDE 0.9% 500 ML IVPB SCH (23:00)
[2019-01-19] MEDS: VANCOMYCIN 1.25 GM in NA CHLORIDE 0.9% 250 ML IVPB SCH (23:56)
[2019-01-20] MEDS: TRAMADOL HCL 50 MG TAB PO PRN ×3 (04:38→21:06)
[2019-01-20 06:22] LABS: Absolute Lymphocytes (CBC) 1.1 K/uL (0.7-4.9); Absolute Monocytes 0.5 K/uL (0.1-1.3); Absolute Neutrophil 6.7 K/uL (1.8-8.0); Basophils % 0.3 % (0-1.3); Eosinophils % 1.9 % (0-4.4); Hematocrit 27.3 % (36.0-45.0); Lymphocytes % 12.8 % (15.3-44.8); MPV 8.1 fL (7.6-11.3); Monocytes % 6.2 % (3.3-12.3); RBC Red Blood Cell Count 3.47 M/uL (3.86-4.86)
[2019-01-20 06:41] LABS: Magnesium 1.9 mg/dL (1.8-2.4); Potassium 4.5 mmol/L (3.5-5.1)
[2019-01-20] MEDS ORDERED: GLUCAGON 1 MG/VIAL IM PRN (07:31)
[2019-01-20] MEDS ORDERED: D50W 25 GM/50 ML SYRINGE IV PRN (07:31)
[2019-01-20] MEDS: METFORMIN ER 500 MG TAB PO SCH ×2 (08:15→17:13)
[2019-01-20] MEDS: PREGABALIN 75 MG CAP PO SCH ×2 (08:16→21:05)
[2019-01-20] MEDS: CLOPIDOGREL 75 MG TABLET PO SCH (08:16)
[2019-01-20] MEDS: METOPROLOL TAR 50 MG TAB PO SCH ×2 (08:16→21:05)
[2019-01-20] MEDS: CEFEPIME/SWI 1gm 10 ML IV SCH ×2 (08:17→21:14)
[2019-01-20] MEDS: INSULIN GLARGINE 100 UNITS/ML SQ SCH ×2 (08:17→21:03)
[2019-01-20] MEDS: INSULIN -REGULAR HUMAN 50 UNIT/0.5 ML ML SQ SCH ×4 (08:18→21:04)
--- NOTE | 2019-01-20 08:29 | P.PN ---
Subjective Date of Service: 01/20/19 Primary Care Provider: Dr. Alcala; Podiatry-Dr. Booth Chief Complaint: diabetic foot ulcer Subjective: Doing well Physical Examination - Vital Signs Temperature: 97.1 F Blood Pressure: 142/61 Pulse: 63 Respirations: 16 Pulse Ox (%): 99 - Physical Exam General: Alert, In no apparent distress, Oriented x3, Cooperative HEENT: Atraumatic Neck: Supple Respiratory: Clear to auscultation bilaterally, Normal air movement Cardiovascular: Normal pulses, Regular rate/rhythm Gastrointestinal: No tenderness, No guarding Integumentary: Other (Left foot bandaged) Neurological: Normal speech, Normal strength at 5/5 x4 extr, Normal tone - Studies Medications List Reviewed: Yes Assessment & Plan Discharge Plan: Home Plan to discharge in: 24 Hours (to 48 hours) Physician Review Additional Text: Impression: Left diabetic foot ulcer suspect osteomyelitis Diabetes mellitus type 2 Hypertension Iron deficiency anemia Peripheral vascular disease Hyperlipidemia Diabetic neuropathy Plan: Left diabetic foot ulcer suspect osteomyelitis: Patient had bedside debridement by Podiatry yesterday. Continue IV antibiotic therapy. Await culture results. Suspect osteomyelitis. Will obtain MRI tomorrow to further evaluate. If negative patient may be able to be discharged as early as tomorrow on oral antibiotic therapy and follow up with podiatry. If MRI positive patient will require long-term IV antibiotic therapy. Await findings. Continue with current plan of care. Will have physical therapy ambulate. Diabetes mellitus type 2: A1c above 12. Will add Lantus 10 units subcu twice daily. Will monitor and adjust appropriately. Will also restart her metformin. Patient will require strict control of diabetes as an outpatient. Hypertension: Continue with medication. Will monitor and adjust appropriately. Iron deficiency anemia: Continue with IV iron. Patient will need continued supplementation at discharge. Will recommend patient to have EGD and colonoscopy as an outpatient. Peripheral vascular disease: Patient seen by Cardiology recently. She had angioplasty done to her left lower extremity in the recent past. She is to have further evaluation and treatment on her right lower extremity soon. Will continue with Plavix. Continue with DVT prophylaxis. Hyperlipidemia: Continue with statin medication. Diabetic neuropathy: Continue with medication. Time Spent Managing Pts Care (In Minutes): 55
[2019-01-20] MEDS ORDERED: HOME MED 1 EA UNK (Metformin Hcl [Metformin Er Osmotic] 1,000 MG) PO SCH (09:00)
--- NOTE | 2019-01-20 10:40 | P.PN ---
Subjective Date of Service: 01/20/19 Primary Care Provider: Dr. Alcala; Podiatry-Dr. Booth Chief Complaint: diabetic foot ulcer wound left foot slightly improved Review of Systems 10-point ROS is otherwise unremarkable Physical Examination - Vital Signs Temperature: 97.1 F Blood Pressure: 142/61 Pulse: 63 Respirations: 16 Pulse Ox (%): 99 - Physical Exam General: Alert, In no apparent distress, Oriented x3 Cardiovascular: No edema, Abnormal pulses Capillary refill: >2 Seconds Musculoskeletal: No clubbing, No swelling, No contractures, No erythema, No tenderness, No warmth Integumentary: Diabetic ulcer (wound lateral left foot slightly improved with no purulence present. Slight odor. Area of concern plantarly that is dusky and may become nonviable.) Neurological: Abnormal sensation - Studies Medications List Reviewed: Yes Assessment And Plan - Current Problems (Diagnosis) (1) Diabetic foot ulcer Current Visit: Yes Status: Acute Plan: 1. d/c wet to dry dressing 2. Continue current iv antibiotics 3. awaiting mri tomorrow 4. Santyl to left foot wound and right fourth digit wound Qualifiers: Diabetic foot ulcer location: midfoot Diabetes mellitus type: type 2 Laterality: left Non-pressure ulcer stage: unspecified non-pressure ulcer stage Qualified Code(s): E11.621 - Type 2 diabetes mellitus with foot ulcer; L97.429 - Non-pressure chronic ulcer of left heel and midfoot with unspecified severity Physician Review: Patient Assessed, Agree with Above Assessment and Plan Physician Review Additional Text: Impression: Left diabetic foot ulcer suspect osteomyelitis Diabetes mellitus type 2 Hypertension Iron deficiency anemia Peripheral vascular disease Hyperlipidemia Diabetic neuropathy Plan: Left diabetic foot ulcer suspect osteomyelitis: Patient had bedside debridement by Podiatry yesterday. Continue IV antibiotic therapy. Await culture results. Suspect osteomyelitis. Will obtain MRI tomorrow to further evaluate. If negative patient may be able to be discharged as early as tomorrow on oral antibiotic therapy and follow up with podiatry. If MRI positive patient will require long-term IV antibiotic therapy. Await findings. Continue with current plan of care. Will have physical therapy ambulate. Diabetes mellitus type 2: A1c above 12. Will add Lantus 10 units subcu twice daily. Will monitor and adjust appropriately. Will also restart her metformin. Patient will require strict control of diabetes as an outpatient. Hypertension: Continue with medication. Will monitor and adjust appropriately. Iron deficiency anemia: Continue with IV iron. Patient will need continued supplementation at discharge. Will recommend patient to have EGD and colonoscopy as an outpatient. Peripheral vascular disease: Patient seen by Cardiology recently. She had angioplasty done to her left lower extremity in the recent past. She is to have further evaluation and treatment on her right lower extremity soon. Will continue with Plavix. Continue with DVT prophylaxis. Hyperlipidemia: Continue with statin medication. Diabetic neuropathy: Continue with medication.
[2019-01-20] MEDS: HYDROCODONE/APAP 7.5/325 MG TAB PO PRN (15:27)
--- NOTE | 2019-01-20 21:04 | EKG ---
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
[2019-01-20] MEDS: ATORVASTATIN 10 MG TAB PO SCH (21:06)
[2019-01-20] MEDS: VANCOMYCIN 1.25 GM in NA CHLORIDE 0.9% 250 ML IVPB SCH (23:22)
[2019-01-20] MEDS ORDERED: PANTOPRAZOLE 40MG TABLET PO ONE (23:45)
[2019-01-21] MEDS: HYDROCODONE/APAP 7.5/325 MG TAB PO PRN ×2 (01:26→20:11)
[2019-01-21 04:47] LABS: Absolute Lymphocytes (CBC) 1.8 K/uL (0.7-4.9); Absolute Neutrophil 7.4 K/uL (1.8-8.0); Basophils % 0.6 % (0-1.3); Eosinophils % 2.8 % (0-4.4); Hematocrit 24.9 % (36.0-45.0); Lymphocytes % 17.1 % (15.3-44.8); MPV 8.1 fL (7.6-11.3); Monocytes % 9.4 % (3.3-12.3); RBC Red Blood Cell Count 3.18 M/uL (3.86-4.86)
[2019-01-21 04:58] LABS: BUN Blood Urea Nitrogen 17 mg/dL (7-18); Bicarbonate 28 mmol/L (21-32); Glucose Level 108 mg/dL (74-106); Magnesium 1.8 mg/dL (1.8-2.4); Potassium 4.2 mmol/L (3.5-5.1); Sodium Level 140 mmol/L (136-145)
[2019-01-21] MEDS ORDERED: MAGNESIUM SULFATE 1 gm IVPB 1 GM/100 ML BAG IV ONE (06:00)
[2019-01-21] MEDS: INSULIN -REGULAR HUMAN 50 UNIT/0.5 ML ML SQ SCH ×4 (07:30→20:12)
[2019-01-21] MEDS: INSULIN GLARGINE 100 UNITS/ML SQ SCH ×2 (09:00→21:00)
[2019-01-21] MEDS: COLLAGENASE 30 GM OINTMENT TOP SCH (09:00)
[2019-01-21] MEDS: CEFEPIME/SWI 1gm 10 ML IV SCH (09:00)
--- NOTE | 2019-01-21 09:21 | RAD REPORT ---
EXAM DESCRIPTION: MRI - Foot Left Wo Cont - 01/21/2019 8:41 am CLINICAL HISTORY: Evaluate for osteomyelitis to lateral wound Soft tissue wound lateral foot. COMPARISON: Foot Left Wo Cont dated 09/04/2018; Foot Left Wo Cont dated 02/14/2018; Foot Left 3 View dated 01/18/2019 FINDINGS: A moderate-size ulceration is seen along the lateral aspect of the midfoot. Poorly defined soft tissue thickening and edema is seen surrounding the lateral aspect of forefoot and midfoot. T1 marrow pattern of the fifth metatarsal the is preserved. T2/IR signal is elevated within the shaft of the fifth metatarsal and the base of the proximal phalanx of the fifth toe. However, no MR evidence of osteomyelitis. No fracture seen. Prominent posterior and plantar calcaneal spurs. No soft tissue mass, hematoma or fluid collection. IMPRESSION: Prominent laterally located soft tissue ulceration is present with edema signal within t he fifth metatarsal and base of the proximal phalanx of fifth toe. No marrow replacing process is see n on T1 sequences to indicate osteomyelitis.
[2019-01-21] MEDS: PREGABALIN 75 MG CAP PO SCH ×2 (09:30→20:10)
[2019-01-21] MEDS: METFORMIN ER 500 MG TAB PO SCH ×2 (09:31→17:08)
[2019-01-21] MEDS: CLOPIDOGREL 75 MG TABLET PO SCH (09:32)
[2019-01-21] MEDS: METOPROLOL TAR 50 MG TAB PO SCH ×2 (09:32→20:10)
[2019-01-21] MEDS ORDERED: ACETIC ACID 0.25% IRRIG IRR ONE (10:04)
[2019-01-21] MEDS: Meropenem 1,000 MG in NA CHLORIDE 0.9% 100 ML IV SCH ×2 (10:30→20:11)
[2019-01-21 12:22] VITALS: O2SAT 98
--- NOTE | 2019-01-21 14:27 | P.PN ---
Subjective Date of Service: 01/21/19 Primary Care Provider: Dr. Alcala; Podiatry-Dr. Booth Chief Complaint: diabetic foot ulcer Subjective: Improving Physical Examination - Vital Signs Temperature: 96.9 F Blood Pressure: 128/66 Pulse: 65 Respirations: 16 Pulse Ox (%): 98 - Physical Exam General: Alert, In no apparent distress, Oriented x3, Cooperative HEENT: Atraumatic Neck: Supple Respiratory: Clear to auscultation bilaterally, Normal air movement Cardiovascular: Normal pulses, Regular rate/rhythm Gastrointestinal: Normal bowel sounds, Soft and benign, Non-distended Musculoskeletal: Other (Ulcer unchanged to the left lateral foot.) Neurological: Normal speech, Normal strength at 5/5 x4 extr, Normal tone, Normal affect - Studies Medications List Reviewed: Yes Assessment & Plan Discharge Plan: Home (With home health and continued IV antibiotic therapy at home) Plan to discharge in: 24 Hours Physician Review Additional Text: Impression: Left diabetic foot ulcer with wound culture positive for Provid[place] and Pseudomonas Diabetes mellitus type 2 Hypertension Iron deficiency anemia Peripheral vascular disease Hyperlipidemia Diabetic neuropathy Plan: Left diabetic foot ulcer with wound culture positive for Providencia and Pseudomonas: MRI shows no osteomyelitis. Case discussed with podiatry. Patient had I and D during her hospitalization. Patient desires to go home to continue antibiotic therapy. Patient will require IV antibiotic therapy for at least 2 weeks. This will include IV meropenem 1 g twice daily. Social work to help arrange for continued IV antibiotic therapy. Patient will need to continue with wound care at home along with home health. Patient may [facility]. Likely discharge within the next 24 hr once IV antibiotic therapy and home health arranged. I will turn the service over to Dr. Sidhu tomorrow. I will go over the plan of care with her. Diabetes mellitus type 2: A1c above 12. Continue with Lantus 10 units subcu twice daily. Patient will continue with metformin and basal insulin at discharge. Strict control of diabetes will be required. This can be further managed as an outpatient by her PCP. Hypertension: Continue with medication. Will monitor and adjust appropriately. Iron deficiency anemia: Continue with IV iron. Patient will need continued supplementation at discharge. Will recommend patient to have EGD and colonoscopy as an outpatient. Peripheral vascular disease: Patient seen by Cardiology recently as an outpatient. She had angioplasty done to her left lower extremity in the recent past. She is to have further evaluation and treatment on her right lower extremity soon. Will continue with Plavix. Continue with DVT prophylaxis. Hyperlipidemia: Continue with statin medication. Diabetic neuropathy: Continue with medication. Time Spent Managing Pts Care (In Minutes): 55
[2019-01-21] MEDS: TRAMADOL HCL 50 MG TAB PO PRN (17:07)
[2019-01-21] MEDS: ATORVASTATIN 10 MG TAB PO SCH (20:10)
[2019-01-21] MEDS ORDERED: Meropenem 1000 MG/VIAL IV SCH (21:00)
[2019-01-22] MEDS: TRAMADOL HCL 50 MG TAB PO PRN ×2 (05:26→22:20)
[2019-01-22 06:56] LABS: Absolute Lymphocytes (CBC) 1.5 K/uL (0.7-4.9); Absolute Monocytes 0.7 K/uL (0.1-1.3); Absolute Neutrophil 6.5 K/uL (1.8-8.0); Basophils % 0.6 % (0-1.3); Eosinophils % 2.6 % (0-4.4); Lymphocytes % 17.1 % (15.3-44.8); MPV 7.9 fL (7.6-11.3); Monocytes % 8.1 % (3.3-12.3); RBC Red Blood Cell Count 3.14 M/uL (3.86-4.86)
[2019-01-22 06:58] LABS: BUN Blood Urea Nitrogen 15 mg/dL (7-18); Bicarbonate 28 mmol/L (21-32); Glucose Level 164 mg/dL (74-106); Magnesium 1.8 mg/dL (1.8-2.4); Potassium 4.4 mmol/L (3.5-5.1); Sodium Level 139 mmol/L (136-145)
[2019-01-22] MEDS: INSULIN -REGULAR HUMAN 50 UNIT/0.5 ML ML SQ SCH ×4 (07:30→22:09)
[2019-01-22] MEDS: INSULIN GLARGINE 100 UNITS/ML SQ SCH ×2 (08:41→22:09)
[2019-01-22] MEDS: METFORMIN ER 500 MG TAB PO SCH ×2 (08:42→17:30)
[2019-01-22] MEDS: PREGABALIN 75 MG CAP PO SCH ×2 (08:42→21:16)
[2019-01-22] MEDS: HYDROCODONE/APAP 7.5/325 MG TAB PO PRN ×2 (08:43→17:31)
[2019-01-22] MEDS: METOPROLOL TAR 50 MG TAB PO SCH ×2 (08:43→21:16)
[2019-01-22] MEDS: CLOPIDOGREL 75 MG TABLET PO SCH (08:43)
[2019-01-22] MEDS: Meropenem 1,000 MG in NA CHLORIDE 0.9% 100 ML IV SCH ×2 (08:44→21:22)
[2019-01-22] MEDS: COLLAGENASE 30 GM OINTMENT TOP SCH (08:45)
[2019-01-22] MEDS ORDERED: MAGNESIUM SULFATE 1 gm IVPB 1 GM/100 ML BAG IV ONE (09:00)
--- NOTE | 2019-01-22 11:29 | RAD REPORT ---
EXAM DESCRIPTION: RAD - Chest Single View - 01/22/2019 3:17 am EXAM DESCRIPTION: Chest Single View CLINICAL HISTORY: 68 years Female, S/P PICC insertion COMPARISON: None. FINDINGS: A right upper extremity PICC line is present with tip in the lower SVC. No consolidation. No pneumothorax. No significant pleural effusion. Cardiac silhouette appears normal in size. Aortic atherosclerosis is present. Osseous structures demonstrate degenerative changes. Sternotomy changes are noted. IMPRESSION: 1. Right upper extremity PICC line tip in the lower SVC. 2. No obvious acute process. Electronically signed by: Dale Sheets MD 01/22/2019 3:23 AM CDT Due to temporary technical issues with the PACS/Fluency reporting system, reports are being signed by the in house radiologist as a courtesy to ensure prompt reporting. The interpreting radiologist is f ully responsible for the content of the report.
--- NOTE | 2019-01-22 15:25 | P.PN ---
Subjective Date of Service: 01/22/19 Primary Care Provider: Dr. Alcala; Podiatry-Dr. Booth Chief Complaint: diabetic foot ulcer Physical Examination - Vital Signs Temperature: 97.1 F Blood Pressure: 122/60 Pulse: 70 Respirations: 15 Pulse Ox (%): 97 - Studies Medications List Reviewed: Yes Assessment And Plan - Current Problems (Diagnosis) (1) Diabetic foot ulcer Current Visit: Yes Status: Acute Plan: Chronic Diabetic foot ulcer with acute worsening -podiatry consulted on the case. Appreciated recommendations at this time -status post I and D POD day 2. -wound cultures positive for Pseudomonas and providance -will need IV meropenem 1 g b.i.d. for 2 weeks -case management arranged for correction facility placement -PICC line placed at this time Qualifiers: Diabetic foot ulcer location: midfoot Diabetes mellitus type: type 2 Laterality: left Non-pressure ulcer stage: unspecified non-pressure ulcer stage Qualified Code(s): E11.621 - Type 2 diabetes mellitus with foot ulcer; L97.429 - Non-pressure chronic ulcer of left heel and midfoot with unspecified severity (2) Peripheral vascular disease due to secondary diabetes Current Visit: No Status: Chronic (3) CAD (coronary artery disease) Onset Date: 05/26/16 Current Visit: No Status: Chronic Qualifiers: Coronary Disease-Associated Artery/Lesion type: [place] artery [place] vs. transplanted heart: [place] heart Associated angina: without angina Qualified Code(s): I25.10 - Atherosclerotic heart disease of [place] coronary artery without angina pectoris (4) HTN (hypertension) Onset Date: 05/26/16 Current Visit: No Status: Chronic Qualifiers: Hypertension type: essential hypertension (5) Hyperlipidemia Onset Date: 09/05/18 Current Visit: No Status: Chronic Qualifiers: Hyperlipidemia type: mixed hyperlipidemia Qualified Code(s): E78.2 - Mixed hyperlipidemia (6) Type 2 diabetes mellitus with foot ulcer Current Visit: No Status: Chronic Qualifiers: Diabetes mellitus senior living insulin use: unspecified senior living insulin use status Qualified Code(s): E11.621 - Type 2 diabetes mellitus with foot ulcer - Plan Pending clinical improvement at this time Discharge Plan: [facility] Plan to discharge in: 48 Hours - Code Status/Comfort Care Code Status Assessed: Yes Physician Review: Patient Assessed, Agree with Above Assessment and Plan Critical Care: No
[2019-01-22] MEDS: ATORVASTATIN 10 MG TAB PO SCH (21:16)
[2019-01-23 05:00] LABS: BUN Blood Urea Nitrogen 14 mg/dL (7-18); Bicarbonate 32 mmol/L (21-32); Glucose Level 110 mg/dL (74-106); Magnesium 1.8 mg/dL (1.8-2.4); Potassium 4.2 mmol/L (3.5-5.1); Sodium Level 142 mmol/L (136-145)
[2019-01-23] MEDS: INSULIN -REGULAR HUMAN 50 UNIT/0.5 ML ML SQ SCH ×3 (07:30→16:54)
[2019-01-23] MEDS: HYDROCODONE/APAP 7.5/325 MG TAB PO PRN ×2 (08:35→14:51)
[2019-01-23] MEDS: METOPROLOL TAR 50 MG TAB PO SCH (08:36)
[2019-01-23] MEDS: INSULIN GLARGINE 100 UNITS/ML SQ SCH (08:36)
[2019-01-23] MEDS: METFORMIN ER 500 MG TAB PO SCH ×2 (08:36→16:21)
[2019-01-23] MEDS: PREGABALIN 75 MG CAP PO SCH (08:36)
[2019-01-23] MEDS: CLOPIDOGREL 75 MG TABLET PO SCH (08:37)
[2019-01-23] MEDS: Meropenem 1,000 MG in NA CHLORIDE 0.9% 100 ML IV SCH ×2 (08:38→16:16)
[2019-01-23] MEDS: COLLAGENASE 30 GM OINTMENT TOP SCH (08:42)
[2019-01-23] MEDS ORDERED: MAGNESIUM SULFATE 1 gm IVPB 1 GM/100 ML BAG IV ONE (09:00)
--- NOTE | 2019-01-23 11:25 | P.DS ---
Admission Date: 01/18/19 Discharge Date: 01/23/19 Primary Care Provider: Dr. Alcala; Podiatry-Dr. Booth Disposition: ROUTINE DISCHARGE Discharge Condition: GOOD Reason for Admission: diabetic foot ulcer Consultations: Podiatry - Problems (1) Diabetic foot ulcer Current Visit: Yes Status: Acute Qualifiers: Diabetic foot ulcer location: midfoot Diabetes mellitus type: type 2 Laterality: left Non-pressure ulcer stage: unspecified non-pressure ulcer stage Qualified Code(s): E11.621 - Type 2 diabetes mellitus with foot ulcer; L97.429 - Non-pressure chronic ulcer of left heel and midfoot with unspecified severity (2) Peripheral vascular disease due to secondary diabetes Current Visit: No Status: Chronic (3) CAD (coronary artery disease) Onset Date: 05/26/16 Current Visit: No Status: Chronic Qualifiers: Coronary Disease-Associated Artery/Lesion type: [place] artery [place] vs. transplanted heart: [place] heart Associated angina: without angina Qualified Code(s): I25.10 - Atherosclerotic heart disease of [place] coronary artery without angina pectoris (4) HTN (hypertension) Onset Date: 05/26/16 Current Visit: No Status: Chronic Qualifiers: Hypertension type: essential hypertension (5) Hyperlipidemia Onset Date: 09/05/18 Current Visit: No Status: Chronic Qualifiers: Hyperlipidemia type: mixed hyperlipidemia Qualified Code(s): E78.2 - Mixed hyperlipidemia (6) Type 2 diabetes mellitus with foot ulcer Current Visit: No Status: Chronic Qualifiers: Diabetes mellitus fdc insulin use: unspecified terminal carman insulin use status Qualified Code(s): E11.621 - Type 2 diabetes mellitus with foot ulcer Brief History of Present Illness: Ms Kelly is a 68 years old woman with history of IDDM, CAD, HTN who has been dealing with a chronic diabetic wound ulcer on her left foot, followed up by Dr Booth. She was using a shoe that made a new wound obove that. She noticed that in the last couple of days, she developed a black escar, with erythema surrounding. She has had increasing amount of yellowish secretion. The patient denied fever or chills. Lab work remarkable for normal WBC count. She has elevated ESR and lactate but normal procalcitonin. Vital signs stable, afebrile. XR left foot, done awaiting radiology report. Allergies Hospital Course: Microbiology Results: Providencia Rustigianii Staph Aureus Pseudomonas Aeruginosa Enterobacter Aerogenes Enterococcus Faecalis Treatment Course: Overall during the hospital course patient remained stable Patient was initially admitted to the hospital for worsening of her diabetic foot ulcer. Podiatry was consulted. Patient had incision and drainage done with podiatry. Initially patient was started on broad spectrum antibiotics. However after initial incision and drainage. Wound cultures were collected. Wound cultures were positive for 5 different organisms. MRI of the foot was done to rule out osteomyelitis. MRI was negative for osteomyelitis. Patient had marked improvement after initial antibiotics and incision and drainage. After discussing the case further with a podiatry and given the extensive nature of the microbiology result the decision was made to start patient on meropenem 1 g twice daily for total of 2 weeks along with ciprofloxacin to cover all the organisms that were resulted in the wound culture. Case management was consulted for safe discharge home. Patient had home health set up for the infusion of antibiotics and wound care. Once accepted by home health agency patient was then discharged home to finish total of 14 days of meropenem and oral ciprofloxacin for total 14 days as well. Patient demonstrated understanding regarding the plan of care and agreed with the plan of care and thus was discharged home under stable condition. Patient was asked to follow up with primary care provider along with podiatry in about 1-2 days post discharge. Vital Signs/Physical Exam: Temp Pulse Resp BP Pulse Ox 97.3 F 75 18 153/68 H 96 01/23/19 04:00 01/23/19 08:36 01/23/19 04:00 01/23/19 08:36 01/23/19 04:00 General: Alert, In no apparent distress HEENT: Atraumatic, PERRLA, EOMI Neck: Supple, JVD not distended Respiratory: Clear to auscultation bilaterally, Normal air movement Cardiovascular: Regular rate/rhythm, Normal S1 S2 Gastrointestinal: Normal bowel sounds, No tenderness Musculoskeletal: Erythema, Tenderness, Other (Diabetic foot ulcer. With marked improvement. No necrotic scar noted.) Integumentary: No rashes, Diabetic ulcer Neurological: Normal speech, Normal tone, Normal affect Lymphatics: No axilla or inguinal lymphadenopathy Laboratory Data at Discharge: WBC 9.0 K/uL (4.3-10.9) D 01/22/19 06:30 Hgb 8.1 g/dL (12.0-15.0) L 01/22/19 06:30 Hct 25.0 % (36.0-45.0) L 01/22/19 06:30 Plt Count 396 K/uL (152-406) 01/22/19 06:30 PT 12.6 SECONDS (9.5-12.5) H 01/18/19 21:40 INR 1.07 01/18/19 21:40 APTT 31.9 SECONDS (24.3-36.9) 01/18/19 21:40 Sodium 142 mmol/L (136-145) 01/23/19 04:27 Potassium 4.2 mmol/L (3.5-5.1) 01/23/19 04:27 BUN 14 mg/dL (7-18) 01/23/19 04:27 Creatinine 0.49 mg/dL (0.55-1.3) L 01/23/19 04:27 Glucose 110 mg/dL (74-106) H 01/23/19 04:27 Magnesium 1.8 mg/dL (1.8-2.4) 01/23/19 04:27 Total Bilirubin 0.4 mg/dL (0.2-1.0) 01/18/19 21:40 AST 11 U/L (15-37) L 01/18/19 21:40 ALT 12 U/L (12-78) 01/18/19 21:40 Alkaline Phosphatase 140 U/L (45-117) H 01/18/19 21:40 Lipase 175 U/L (73-393) 01/18/19 21:40 Home Medications: Furosemide [Lasix*] 40 mg PO DAILY 05/11/16 Metformin HCl [Metformin ER Osmotic] 1,000 mg PO BID 05/11/16 Metoprolol Tartrate [Lopressor*] 50 mg PO BID 05/11/16 Pravastatin [Pravachol*] 40 mg PO DAILY 05/11/16 Naproxen [Naprosyn] 500 mg PO BID 11/13/17 Pregabalin [Lyrica*] 75 mg PO BID 09/04/18 Clopidogrel Bisulfate [Plavix] 1 tab PO DAILY 01/19/19 Insulin Glargine/Lixisenatide [Soliqua 100 Unit-33 Mcg/ml Pen] 30 unit SQ DAILY 01/20/19 Ciprofloxacin HCl [Cipro 500 MG Tablet] 500 mg PO DAILY #14 tab 05/08/19 Meropenem [Merrem 1 GM/100 ML NS IVPB] 1 gm IV BID 6AM 6PM #23 bag 01/23/19 New Medications: Ciprofloxacin HCl [Cipro 500 MG Tablet] 500 mg PO DAILY #14 tab Meropenem [Merrem 1 GM/100 ML NS IVPB] 1 gm IV BID 6AM 6PM #23 bag Patient Discharge Instructions: Please f.u with PCP and Podiatry in 1 to 2 week post discharge. You were admitted to the hospital for Diabetic Foot Ulcer. You culture was + for bacteria and required treatment with IV medication. You will need to continue medication for total of 2 weeks. New medication. Merrem 1g BID for 11 days Diet: Regular Activity: Ad riccardo Followup: El Booth JR, DPM [ASSOCIATE-ACTIVE - CAN ADMIT] -
[2019-01-23 18:18] VITALS: BP 165/66; TEMP 97.2
== END 2019-01-23 18:42 | disposition home health service (06) | DRG 638 ==
LOC: ER 20:34 → ERHOLD 23:59 → 2ND 01-19 01:46
PROVIDERS: ADMIT Internal Medicine; ATTEND Family Medicine
PROC: 0HBNXZZ Excision of Left Foot Skin, External Approach (ICD-10-PCS; principal; 2019-01-19)
PROC: 02HV33Z Insertion of Infusion Device into Superior Vena Cava, Percutaneous Approach (ICD-10-PCS; 2019-01-22)
DX: E11.621 Type 2 diabetes mellitus with foot ulcer (principal); L97.429 Non-pressure chronic ulcer of left heel and midfoot with unspecified severity; L03.116 Cellulitis of left lower limb; B96.5 Pseudomonas (aeruginosa) (mallei) (pseudomallei) as the cause of diseases classified elsewhere; B95.61 Methicillin susceptible Staphylococcus aureus infection as the cause of diseases classified elsewhere; B95.2 Enterococcus as the cause of diseases classified elsewhere; B96.89 Other specified bacterial agents as the cause of diseases classified elsewhere; E11.51 Type 2 diabetes mellitus with diabetic peripheral angiopathy without gangrene; E11.40 Type 2 diabetes mellitus with diabetic neuropathy, unspecified; I25.10 Atherosclerotic heart disease of native coronary artery without angina pectoris; I10 Essential (primary) hypertension; E78.2 Mixed hyperlipidemia; D50.9 Iron deficiency anemia, unspecified; Z79.84 Long term (current) use of oral hypoglycemic drugs; Z95.1 Presence of aortocoronary bypass graft; Z88.1 Allergy status to other antibiotic agents
CPT/HCPCS: 36415; 71045; 80048; 80076; 80202; 81003; 81015; 82550; 82553; 82607; 82728; 82947; 82962; 83036; 83540; 83605; 83690; 83735; 84132; 84145; 84466; 84484; 85014; 85018; 85025; 85610; 85652; 85730; 87040; 87070; 87075; 87077; 87186; 87205; 93005; 96365; 96366; 96367; 96372; 96375; 97116; 97162; 97530; 99285; J0692; J2405; J2543; J3475; J3590; J7030

== ENCOUNTER 2019-01-26 10:09 | Emergency (ER) | payer OTHER ==
--- OUTSIDE RECORDS SUMMARY | 2019-01-26 10:11 | XMS REPORT ---
[...] End Status Dosage System Date Date Naproxen [facility] 96515093912 500 MG Orally Active 1 tablet Twice a day Clopidogrel [facility] 00851165575 75 MG Orally Active 1 tablet Bisulfate Once a day Bactrim DS [facility] 45729937442 800-160 MG Active 1 tablet Orally Twice a day x2wks Augmentin [facility] 81216592894 250-62.5 MG/5ML Active 1 tablet Orally QD x2wks Pravastatin ND 47046431353 40 MG Orally Active 1 tablet Sodium Once a day Lyrica ND 61676683175 75 MG Orally Inactive 1 capsule Once a day Glimepiride ND 81644641276 4 MG Orally Active 1 tablet twice a day with breakfast or the first main meal of the day Cleocin ND 04626704902 150 MG Orally Active 2 capsules Once a day x2wks Furosemide [facility] 77237539640 40 MG Orally Active 1 tablet Once a day Potassium [facility] 43708676217 20 MEQ Orally Active 1 tablet Chloride Jackeline Once a day with food ER Metoprolol ND 59197317411 50 MG Orally Active 1 tablet Tartrate Twice a day with food Metformin HCl [facility] 68620128779 1000 MG Orally Active 1 tablet Twice a day with a meal Results No Known Results Summary Purpose eClinicalWorks Submission
--- OUTSIDE RECORDS SUMMARY | 2019-01-26 10:11 | XMS REPORT ---
:1950 Author Organization [facility] Address [address] [place] [address] [address] [place] [address] Care Team Providers Name Role Phone Unavailable Unavailable Unavailable Problems This patient has no known problems. Allergies, Adverse Reactions, Alerts This patient has no known allergies or adverse reactions. Medications This patient has no known medications.
--- OUTSIDE RECORDS SUMMARY | 2019-01-26 10:12 | XMS REPORT ---
[...] Dosage System Date Date BD Pen Needle [facility] 26968224183 32G X 4 MM SQ May 11, Active as directed [place] U/F once a day 2017 Results No Known Results Summary Purpose eClinicalWorks Submission
--- OUTSIDE RECORDS SUMMARY | 2019-01-26 10:12 | XMS REPORT ---
[...] End Status Dosage System Date Date Metoprolol [facility] 66423453034 50 MG Orally Active 1 tablet Tartrate Twice a day with food Furosemide ND 00060499317 40 MG Orally Active 1 tablet Once a day Metformin HCl ND 64476929891 1000 MG Orally Active 1 tablet Twice a day with a meal Clopidogrel ND 00151039452 75 MG Orally Active 1 tablet Bisulfate Once a day Pravastatin ND 81874633927 40 MG Orally Active 1 tablet Sodium Once a day Potassium [facility] 24176983103 20 MEQ Orally Active 1 tablet Chloride Jackeline Once a day with food ER BD Pen Needle [facility] 18288498260 32G X 4 MM SQ May 11, Active as directed [place] U/F once a day 2017 Naproxen ND 20330574544 500 MG Orally Active 1 tablet Twice a day Victoza ND 66388589668 18 MG/3ML Active 1.2 mg Subcutaneous daily Lyrica ND 42906963842 75 MG Orally Apr 23, Active 1 capsule Twice a day 2017 Results No Known Results Summary Purpose eClinicalWorks Submission
--- OUTSIDE RECORDS SUMMARY | 2019-01-26 10:12 | XMS REPORT ---
[...] Start End Date Status Dosage Date Naproxen [facility] 04991530516 500 MG Orally Active 1 tablet Twice a day Lyrica [facility] 19824638490 75 MG Orally Apr 23, Active 1 capsule Twice a day [address] [facility] 88948755708 18 MG/3ML March 19, Sep 15, Active 1.2 mg Subcutaneous 2017 2018 daily Results No Known Results Summary Purpose eClinicalWorks Submission
--- OUTSIDE RECORDS SUMMARY | 2019-01-26 10:12 | XMS REPORT ---
[...] End Status Dosage System Date Date Santyl [facility] 78894617651 250 UNIT/GM Apr 24, May 08, Active 1 application Externally Once 2017 2017 to affected a day area Lyrica ND 02307668866 75 MG Orally Apr 23, Active 1 capsule Twice a day 2017 Metformin HCl ND 73314713776 1000 MG Orally Active 1 tablet with Twice a day a meal Victoza [facility] 78317987036 18 MG/3ML March 19Sep 15, Active 1.2 mg Subcutaneous 2017 2017 daily Pravastatin ND 48819514377 40 MG Orally Active 1 tablet Sodium Once a day Potassium ND 49948251072 20 MEQ Orally Active 1 tablet with Chloride Jackeline Once a day food ER Metoprolol ND 91867663143 50 MG Orally Active 1 tablet with Tartrate Twice a day food Furosemide ND 77308438052 40 MG Orally Active 1 tablet Once a day Naproxen ND 38734799885 500 MG Orally Active 1 tablet Twice a day Clopidogrel ND 04409131684 75 MG Orally Active 1 tablet Bisulfate Once a day Results No Known Results Summary Purpose eClinicalWorks Submission
--- OUTSIDE RECORDS SUMMARY | 2019-01-26 10:12 | XMS REPORT ---
[...] Date Status Dosage System Date One Touch [facility] 006870400651 1 In Vitro Jul 09December Active as directed Ultra Test twice daily 2017 Strips Results No Known Results Summary Purpose eClinicalWorks Submission
--- OUTSIDE RECORDS SUMMARY | 2019-01-26 10:12 | XMS REPORT ---
[...] Dosage System Date Date BD Pen Needle [facility] 58049682322 32G X 4 MM SQ May 11, Active as directed Carolina U/F once a day 2017 Results No Known Results Summary Purpose eClinicalWorks Submission
--- OUTSIDE RECORDS SUMMARY | 2019-01-26 10:12 | XMS REPORT ---
[...] Date Status Dosage System Date Clopidogrel ND 27036472082 75 MG Orally Active 1 tablet Bisulfate Once a day Furosemide ND 42368255386 40 MG Orally Active 1 tablet Once a day Lyrica ND 89471000504 75 MG Orally Apr 23, Active 1 capsule Twice a day 2017 Potassium ND 03832173877 20 MEQ Orally Active 1 tablet Chloride Jackeline Once a day with food ER Pravastatin ND 35737342659 40 MG Orally Active 1 tablet Sodium Once a day Metoprolol ND 62062369002 50 MG Orally Active 1 tablet Tartrate Twice a day with food Metformin HCl ND 23997822035 1000 MG Orally Active 1 tablet Twice a day with a meal One Touch [facility] 229933063828 1 In Vitro Jul 09December Active as directed Ultra Test twice daily 2018 2018 Strips One Touch NDC 0 Lancet subq Jul 09, Active 1 lancet Delica Lancets twice daily 2017 Results No Known Results Summary Purpose eClinicalWorks Submission
--- OUTSIDE RECORDS SUMMARY | 2019-01-26 10:12 | XMS REPORT ---
[...] End Status Dosage System Date Date Glimepiride [facility] 42074252456 4 MG Orally March Inactive 1 tablet twice a day 2017 breakfast or the first main meal of the day Augmentin [facility] 71619641690 250-62.5 MG/5ML March Active 1 tablet Orally QD x2wks 2017 Bactrim DS [facility] 56558534380 800-160 MG March Active 1 tablet Orally Twice a x2wks 2017 Pravastatin [facility] 15639959228 40 MG Orally Active 1 tablet Sodium Once a day Metformin HCl ND 56982434803 1000 MG Orally Active 1 tablet Twice a day with a meal Clopidogrel [facility] 08185958131 75 MG Orally Active 1 tablet Bisulfate Once a day Potassium ND 65239293793 20 MEQ Orally Active 1 tablet Chloride Jackeline Once a day with food ER Metoprolol [facility] 22643740356 50 MG Orally Active 1 tablet Tartrate Twice a day with food Furosemide [facility] 71190738475 40 MG Orally Active 1 tablet Once a day Cleocin [facility] 93399575240 150 MG Orally March Active 2 capsules Once a day , x2wks 2017 Victoza [facility] 30096234870 18 MG/3ML March 19Sep 15, Active 1.2 mg Subcutaneous 2017 2017 daily Naproxen [facility] 13258062818 500 MG Orally Active 1 tablet Twice a day Results No Known Results Summary Purpose eClinicalWorks Submission
--- OUTSIDE RECORDS SUMMARY | 2019-01-26 10:12 | XMS REPORT ---
:1950 Author Organization eClinicalWorks Care Team Providers Name Role Phone Yu Kwasi Provider Role Unavailable Allergies No Known Allergies [...] Medications Results No Known Results Summary Purpose GlocalinicalTelera Submission
--- OUTSIDE RECORDS SUMMARY | 2019-01-26 10:12 | XMS REPORT ---
[...] Date Status Dosage System Date One Touch [facility] 429059789841 1 In Vitro Jul 09December Active as directed Ultra Test twice daily 2017 Strips Victoza [facility] 87387050115 18 MG/3ML Active 1.2 mg Subcutaneous daily Metformin HCl [facility] 84256265692 1000 MG Orally Active 1 tablet Twice a day with a meal Metoprolol [facility] 57681206392 50 MG Orally Active 1 tablet Tartrate Twice a day with food Clopidogrel ND 86747406592 75 MG Orally Active 1 tablet Bisulfate Once a day Naproxen ND 36496940761 500 MG Orally Active 1 tablet Twice a day Lyrica ND 65400286414 75 MG Orally Apr 23, Active 1 capsule Twice a day 2017 Potassium [facility] 43832253485 20 MEQ Orally Active 1 tablet Chloride Jackeline Once a day with food ER Pravastatin [facility] 22814839568 40 MG Orally Active 1 tablet Sodium Once a day Furosemide [facility] 54777085208 40 MG Orally Active 1 tablet Once a day One Touch ND 0 Lancet subq Jul 09, Active 1 lancet Delica Lancets twice daily 2017 BD Pen Needle [facility] 68087099840 32G X 4 MM SQ May 11, Active as directed Carolina U/F once a day 2017 Results No Known Results Summary Purpose eClinicalWorks Submission
[2019-01-26] MEDS ORDERED: HYDROCODONE/APAP 5/325 MG TAB ONE (11:11)
[2019-01-26 11:36] LABS: Absolute Lymphocytes (CBC) 1.6 K/uL (0.7-4.9); Absolute Monocytes 0.6 K/uL (0.1-1.3); Absolute Neutrophil 6.2 K/uL (1.8-8.0); Basophils % 1.3 % (0-1.3); Hematocrit 26.5 % (36.0-45.0); MPV 7.8 fL (7.6-11.3); Monocytes % 7.4 % (3.3-12.3); RBC Red Blood Cell Count 3.38 M/uL (3.86-4.86)
--- NOTE | 2019-01-26 11:36 | RAD REPORT ---
EXAM DESCRIPTION: RAD - Foot Left 3 View - 01/26/2019 11:15 am CLINICAL HISTORY: Pain;Swelling COMPARISON: Foot Left 3 View dated 01/18/2019 FINDINGS: Flat foot deformity. Diffuse osteopenia. Large soft tissue ulceration is seen along the la teral aspect of the midfoot along the shaft of the fifth metatarsal. Demineralization of the distal s haft of the fifth metatarsal likely represents early osteomyelitis.
[2019-01-26 12:05] LABS: C-Reactive Protein 62.1 mg/L (<3.00); Potassium 3.7 mmol/L (3.5-5.1)
--- NOTE | 2019-01-26 13:00 | ER ---
Nurse's Notes [facility] Name: Mildred Kelly Age: 68 yrs Sex: Female : 1950 Arrival Date: 01/26/2019 Time: 10:11 Bed 19 Private MD: Diagnosis: Osteomyelitis Presentation: 01/26 10:34 Presenting complaint: Patient states: has diabetic foot ulcer to outer edge of left iw foot, started Merrem I GM BID on , home health did wound care today and gave dose of abx, nurse stated that wound appeared to have spread to bottom of foot, called Dr. Booth and advised pt to come to ER for evaluation. Transition of care: patient was not received from another setting of care. Onset of symptoms was January 26, 2019. Risk Assessment: Do you want to hurt yourself or someone else? Patient reports no desire to harm self or others. Initial Sepsis Screen: Does the patient meet any 2 criteria? No. Patient's initial sepsis screen is negative. Does the patient have a suspected source of infection?. Care prior to arrival: None. 10:34 Method Of Arrival: Wheelchair iw 10:34 Acuity: JANE 3 iw Triage Assessment: 11:00 General: Appears in no apparent distress. Behavior is calm, cooperative. iw Historical: - Allergies: 10:39 Bactrim; iw 10:39 Levaquin; iw - Home Meds: 10:39 glimepiride 4 mg Oral tab 1 tab twice daily [Active]; Lasix 40 mg Oral tab 1 tab once iw daily [Active]; Levaquin 750 mg Oral tab 1 tab once daily [Active]; Lyrica 75 mg Oral 2 times per day [Active]; metformin 1,000 mg Oral tab 1 tab 2 times per day [Active]; metoprolol tartrate 50 mg Oral tab 1 tab 2 times per day [Active]; naproxen 500 mg Oral TbEC 1 tab 2 times per day [Active]; pravastatin 40 mg Oral tab 1 tab once daily [Active]; - PMHx: 10:39 CHF; Diabetes - NIDDM; Hyperlipidemia; Hypertension; neuropathy; triple bypass; iw - PSHx: 10:39 Triple Bypass; iw - Immunization history:: Adult Immunizations up to date. - Social history:: Smoking status: Patient/guardian denies using tobacco. - Ebola Screening: : Patient negative for fever greater than or equal to 101.5 degrees Fahrenheit, and additional compatible Ebola Virus Disease symptoms Patient denies exposure to infectious person Patient denies travel to an Ebola-affected area in the 21 days before illness onset No symptoms or risks identified at this time. Screenin:20 Abuse screen: Denies threats or abuse. Nutritional screening: No deficits noted. em Tuberculosis screening: No symptoms or risk factors identified. Fall Risk None identified. Assessment: 11:00 General: Appears in no apparent distress. comfortable, Behavior is calm, cooperative, em Denies fever. Pain: Complains of pain in left foot Pain currently is 7 out of 10 on a pain scale. Neuro: Level of Consciousness is awake, alert, obeys commands, Oriented to person, place, time, situation. Cardiovascular: Patient's skin is warm and dry. Respiratory: Airway is patent Respiratory effort is even, unlabored, Respiratory pattern is regular, symmetrical. Derm: Skin is pink, warm \T\ dry. Wound noted right foot and left foot. Musculoskeletal: Capillary refill < 3 seconds, Range of motion: intact in all extremities. 11:25 Reassessment: Patient appears in no apparent distress at this time. No changes from iw previously documented assessment. I agree with above assessment by Carmelo Patel LVN. 12:58 Reassessment: Patient appears in no apparent distress at this time. Patient and/or em family updated on plan of care and expected duration. Pain level reassessed. Patient is alert, oriented x 3, equal unlabored respirations, skin warm/dry/pink. rates pain 4/10 Patient states feeling better. Vital Signs: 10:39 BP 152 / 78; Pulse 86; Resp 16 S; Temp 97.8(TE); Pulse Ox 100% on R/A; Weight 66.68 kg; iw Height 5 ft. 5 in. (165.10 cm); Pain 7/10; 10:39 Body Mass Index 24.46 (66.68 kg, 165.10 cm) iw ED Course: 10:11 Patient arrived in ED. rg4 10:13 Cydney Eastman FNP-C is [facility]. snw 10:13 Corby De Santiago MD is Attending Physician. snw 10:37 Triage completed. iw 10:39 Arm band placed on. iw 10:52 Handy, Jessica, RN is Primary Nurse. iw 11:16 Foot Left 3 View XRAY In Process Unspecified. EDMS 11:20 Patient has correct armband on for positive identification. Bed in low position. Call em light in reach. Adult w/ patient. 11:20 Initial lab(s) drawn, First set of blood cultures drawn hub cleaned, flushed with 10 ml tw2 NS, discarded 10ml, 15 ml blood returned, blood appeared diluted, provider notified. 12:49 Chest Single View XRAY In Process Unspecified. EDMS 12:59 Tonny Bond MD is Referral Physician. snw 13:29 No provider procedures requiring assistance completed. Patient did not have IV access tw2 during this emergency room visit. Administered Medications: 11:11 Drug: [place] 5 mg-325 mg 1 tabs Route: PO; iw 12:52 Follow up: Response: No adverse reaction; Pain is decreased em Outcome: 12:59 Discharge ordered by MD. snw 13:29 Discharged to home via wheelchair, with family. tw2 13:29 Condition: stable 13:29 Discharge instructions given to patient, family, Instructed on discharge instructions, follow up and referral plans. no drinking with medication, no driving heavy equipment, medication usage, wound care, Demonstrated understanding of instructions, follow-up care, medications, Prescriptions given X 1. 13:30 Patient left the ED. tw2 Signatures: Dispatcher [employer] EDMS Cydney Eastman, WELL DIGGER-C WELL DIGGER-Csnw Carmelo Patel, PLANNING ANALYST PLANNING ANALYST em Jessica Murrell, RN BRETT iw Chaya Minaya RN RN 2 Catrina Lou 4 Corrections: (The following items were deleted from the chart) 11:29 11:20 Initial lab(s) drawn, em em
--- NOTE | 2019-01-26 13:00 | EDPHYS ---
Physician Documentation [facility] Name: Mildred Kelly Age: 68 yrs Sex: Female : 1950 Arrival Date: 01/26/2019 Time: 10:11 Bed 19 Private MD: ED Physician Corby De Santiago HPI: 01/26 11:33 This 68 yrs old Female presents to ER via Wheelchair with complaints of Foot snw Infection. 11:33 Onset: The symptoms/episode began/occurred 3 week(s) ago, and became worse today, and snw became persistent. Associated signs and symptoms: Pertinent positives: worsening erythema to left foot. Modifying factors: The patient symptoms are alleviated by nothing. The patient has experienced similar episodes in the past, several times. The patient has been recently seen by a physician: a consulting services associate. Historical: - Allergies: 10:39 Bactrim; iw 10:39 Levaquin; iw - Home Meds: 10:39 glimepiride 4 mg Oral tab 1 tab twice daily [Active]; Lasix 40 mg Oral tab 1 tab once iw daily [Active]; Levaquin 750 mg Oral tab 1 tab once daily [Active]; Lyrica 75 mg Oral 2 times per day [Active]; metformin 1,000 mg Oral tab 1 tab 2 times per day [Active]; metoprolol tartrate 50 mg Oral tab 1 tab 2 times per day [Active]; naproxen 500 mg Oral TbEC 1 tab 2 times per day [Active]; pravastatin 40 mg Oral tab 1 tab once daily [Active]; - PMHx: 10:39 CHF; Diabetes - NIDDM; Hyperlipidemia; Hypertension; neuropathy; triple bypass; iw - PSHx: 10:39 Triple Bypass; iw - Immunization history:: Adult Immunizations up to date. - Social history:: Smoking status: Patient/guardian denies using tobacco. - Ebola Screening: : Patient negative for fever greater than or equal to 101.5 degrees Fahrenheit, and additional compatible Ebola Virus Disease symptoms Patient denies exposure to infectious person Patient denies travel to an Ebola-affected area in the 21 days before illness onset No symptoms or risks identified at this time. ROS: 11:33 Constitutional: Negative for fever, chills, and weight loss, Eyes: Negative for injury, snw pain, redness, and discharge, ENT: Negative for injury, pain, and discharge, Neck: Negative for injury, pain, and swelling, Cardiovascular: Negative for chest pain, palpitations, and edema, Respiratory: Negative for shortness of breath, cough, wheezing, and pleuritic chest pain, Abdomen/GI: Negative for abdominal pain, nausea, vomiting, diarrhea, and constipation, Back: Negative for injury and pain, : Negative for injury, bleeding, discharge, and swelling, Skin: Negative for injury, rash, and discoloration, Neuro: Negative for headache, weakness, numbness, tingling, and seizure. 11:33 MS/extremity: Positive for worsening appearance of left lateral foot - s/p admission, discharge with IV therapy. Rec'ing Merrem and Cipro. Exam: 11:01 Constitutional: This is a well developed, well nourished patient who is awake, alert, snw and in no acute distress. Head/Face: Normocephalic, atraumatic. Eyes: Pupils equal round and reactive to light, extra-ocular motions intact. Lids and lashes normal. Conjunctiva and sclera are non-icteric and not injected. Cornea within normal limits. Periorbital areas with no swelling, redness, or edema. ENT: Nares patent. No nasal discharge, no septal abnormalities noted. Tympanic membranes are normal and external auditory canals are clear. Oropharynx with no redness, swelling, or masses, exudates, or evidence of obstruction, uvula midline. Mucous membranes moist. Neck: Trachea midline, no thyromegaly or masses palpated, and no cervical lymphadenopathy. Supple, full range of motion without nuchal rigidity, or vertebral point tenderness. No Meningismus. Chest/axilla: Normal chest wall appearance and motion. Nontender with no deformity. No lesions are appreciated. Cardiovascular: Regular rate and rhythm with a normal S1 and S2. No gallops, murmurs, or rubs. Normal PMI, no JVD. No pulse deficits. Respiratory: Lungs have equal breath sounds bilaterally, clear to auscultation and percussion. No rales, rhonchi or wheezes noted. No increased work of breathing, no retractions or nasal flaring. Abdomen/GI: Soft, non-tender, with normal bowel sounds. No distension or tympany. No guarding or rebound. No evidence of tenderness throughout. Back: No spinal tenderness. No costovertebral tenderness. Full range of motion. Neuro: Awake and alert, GCS 15, oriented to person, place, time, and situation. Cranial nerves II-XII grossly intact. Motor strength 5/5 in all extremities. Sensory grossly intact. Cerebellar exam normal. Normal gait. Psych: Awake, alert, with orientation to person, place and time. Behavior, mood, and affect are within normal limits. 11:01 Musculoskeletal/extremity: bilateral feet with edema, + erythema to left circumferential foot. Vital Signs: 10:39 BP 152 / 78; Pulse 86; Resp 16 S; Temp 97.8(TE); Pulse Ox 100% on R/A; Weight 66.68 kg; iw Height 5 ft. 5 in. (165.10 cm); Pain 7/10; 10:39 Body Mass Index 24.46 (66.68 kg, 165.10 cm) iw MDM: 10:24 Patient medically screened. snw 13:03 Data reviewed: vital signs, nurses notes. Data reviewed: lab test result(s), and as a snw result, I will all cultured bacteria sensitive to current abx therapy. Data interpreted: Pulse oximetry: on room air is 100 %. Interpretation: normal. Test interpretation: by ED physician or midlevel provider: plain radiologic studies. Counseling: I had a detailed discussion with the patient and/or guardian regarding: the historical points, exam findings, and any diagnostic results supporting the discharge/admit diagnosis, lab results, radiology results, the need for outpatient follow up, to return to the emergency department if symptoms worsen or persist or if there are any questions or concerns that arise at home. 01/26 10:53 Order name: CBC with Diff snw 01/26 10:53 Order name: Blood Culture* snw 01/26 10:53 Order name: ESR snw 01/26 10:53 Order name: CRP; Complete Time: 12:08 snw 01/26 10:53 Order name: Chem 7; Complete Time: 12:08 snw 01/26 10:53 Order name: Foot Left 3 View XRAY; Complete Time: 11:38 snw 01/26 10:54 Order name: CBC with Automated Diff; Complete Time: 12:15 EDMS 01/26 10:54 Order name: Sedimentation Rate, Westergren; Complete Time: 12:15 EDMS 01/26 12:33 Order name: Chest Single View XRAY; Complete Time: 13:04 snw 01/26 12:58 Order name: Wound Care; Complete Time: 13:29 snw 01/26 12:58 Order name: Wound dressing; Complete Time: 13:29 snw Administered Medications: 11:11 Drug: [place] 5 mg-325 mg 1 tabs Route: PO; 12:52 Follow up: Response: No adverse reaction; Pain is decreased em Disposition: 13:36 Co-signature as Attending Physician, Corby De Santiago MD. rn Disposition: 01/26/19 12:59 Discharged to Home. Impression: Osteomyelitis. - Condition is Stable. - Discharge Instructions: Diabetes and Foot Care, Wound Infection. - Prescriptions for Tylenol- Codeine #3 300-30 mg Oral Tablet - take 2 tablets by ORAL route every 6 hours As needed; 16 tablet. - Medication Reconciliation Form, Thank You Letter, Antibiotic Education, Prescription Opioid Use form. - Follow up: Private Physician; When: 1 - 2 days; Reason: Recheck today's complaints, Continuance of care, Re-evaluation by your physician. Follow up: Emergency Department; When: As needed; Reason: Fever > 102 F. Follow up: Tonny Bond MD; When: 2 - 3 days; Reason: Recheck today's complaints, Continuance of care. - Notes: please continue home health, current antibiotic therapy Signatures: Dispatcher [employer] [facility] Cydney Eastman, MEDICAL HOUSEKEEPER-C MEDICAL HOUSEKEEPER-Csnw Jessica Murrell RN RN iw Nieto, Roman, MD MD rn Wise, Tara, RN RN tw2 Carmelo Patel MENTAL HEALTH PROGRAM SPECIALIST em Corrections: (The following items were deleted from the chart) 11:12 10:54 VANCOMYCIN, PEAK+C.LAB.BRZ ordered. [facility] EDAK 13:30 12:59 01/26/2019 12:59 Discharged to Home. Impression: Osteomyelitis. Condition is tw2 Stable. Forms are Medication Reconciliation Form, Thank You Letter, Antibiotic Education, Prescription Opioid Use. Follow up: Private Physician; When: 1 - 2 days; Reason: Recheck today's complaints, Continuance of care, Re-evaluation by your physician. Follow up: Emergency Department; When: As needed; Reason: Fever > 102 F. Follow up: Tonny Bond; When: 2 - 3 days; Reason: Recheck today's complaints, Continuance of care. snw
--- NOTE | 2019-01-26 13:01 | RAD REPORT ---
EXAM DESCRIPTION: RAD - Chest Single View - 01/26/2019 12:48 pm CLINICAL HISTORY: shoulder pain/ picc Chest pain. COMPARISON: ABDOMINAL EXAM COMPLETE dated 06/03/2013Chest Single View dated 01/22/2019; Abdomen 1 View (KUB) dated 09/15/2018; Chest Single View dated 09/07/2018; Chest Single View dated 11/01/2017 FINDINGS: Portable technique limits examination quality. Mild linear subsegmental atelectasis is present left lung base laterally. The lungs are otherwise joe ar. The heart is mildly enlarged in size. Sternotomy wires present. Right-sided PICC line has tip in the SVC near the right atrial junction.
[2019-01-26 15:07] VITALS: BP 152/78; TEMP 97.8; O2SAT 100
== END 2019-01-26 13:30 | disposition home or self-care (01) ==
LOC: ER 10:09
DX: M86.9 Osteomyelitis, unspecified (principal); E11.69 Type 2 diabetes mellitus with other specified complication; I10 Essential (primary) hypertension; I50.9 Heart failure, unspecified; E78.5 Hyperlipidemia, unspecified; Z88.1 Allergy status to other antibiotic agents; Z95.1 Presence of aortocoronary bypass graft
CPT/HCPCS: 36415; 71045; 80048; 85025; 85652; 86140; 87040; 99284

== ENCOUNTER 2019-02-14 12:49 | Inpatient (IN) | payer OTHER ==
[2019-02-14 16:18] VITALS: BMI 24.4
[2019-02-14] MEDS ORDERED: ONDANSETRON 4 MG/2 ML VIAL IV PRN (16:20)
--- OUTSIDE RECORDS SUMMARY | 2019-02-14 16:27 | XMS REPORT ---
[...] End Status Dosage System Date Date Santyl [facility] 43363509143 250 UNIT/GM Apr 24, May 08, Active 1 application Externally Once 2017 2017 to affected a day area Lyrica ND 16777601390 75 MG Orally Apr 23, Active 1 capsule Twice a day 2017 Metformin HCl ND 77002514872 1000 MG Orally Active 1 tablet with Twice a day a meal Victoza [facility] 64677890910 18 MG/3ML March 19Sep 15, Active 1.2 mg Subcutaneous 2017 2017 daily Pravastatin ND 43921124494 40 MG Orally Active 1 tablet Sodium Once a day Potassium ND 03442985361 20 MEQ Orally Active 1 tablet with Chloride Jackeline Once a day food ER Metoprolol ND 58195156115 50 MG Orally Active 1 tablet with Tartrate Twice a day food Furosemide ND 58609690116 40 MG Orally Active 1 tablet Once a day Naproxen ND 37087388584 500 MG Orally Active 1 tablet Twice a day Clopidogrel ND 37884903016 75 MG Orally Active 1 tablet Bisulfate Once a day Results No Known Results Summary Purpose eClinicalWorks Submission
--- OUTSIDE RECORDS SUMMARY | 2019-02-14 16:27 | XMS REPORT ---
:1950 [facility] Address [address] [place] [address] [address] [place] [address] Care Team Providers Name Role Phone Unavailable Unavailable Unavailable Problems This patient has no known problems. Allergies, Adverse Reactions, Alerts This patient has no known allergies or adverse reactions. Medications This patient has no known medications.
--- OUTSIDE RECORDS SUMMARY | 2019-02-14 16:27 | XMS REPORT ---
[...] Start End Date Status Dosage Date Naproxen [facility] 41765577332 500 MG Orally Active 1 tablet Twice a day Lyrica [facility] 55475173093 75 MG Orally Apr 23, Active 1 capsule Twice a day 2017 Victoza [facility] 61299034275 18 MG/3ML March 19, Sep 15, Active 1.2 mg Subcutaneous 2017 2018 daily Results No Known Results Summary Purpose eClinicalWorks Submission
--- OUTSIDE RECORDS SUMMARY | 2019-02-14 16:27 | XMS REPORT ---
[...] End Status Dosage System Date Date Glimepiride [facility] 12739156488 4 MG Orally March Inactive 1 tablet twice a day 2017 breakfast or the first main meal of the day Augmentin [facility] 78546639608 250-62.5 MG/5ML March Active 1 tablet Orally QD x2wks 2017 Bactrim DS [facility] 92900506188 800-160 MG March Active 1 tablet Orally Twice a x2wks 2017 Pravastatin [facility] 71004949828 40 MG Orally Active 1 tablet Sodium Once a day Metformin HCl ND 97529229466 1000 MG Orally Active 1 tablet Twice a day with a meal Clopidogrel [facility] 98783594466 75 MG Orally Active 1 tablet Bisulfate Once a day Potassium ND 06623256961 20 MEQ Orally Active 1 tablet Chloride Jackeline Once a day with food ER Metoprolol [facility] 32962460442 50 MG Orally Active 1 tablet Tartrate Twice a day with food Furosemide [facility] 95134454335 40 MG Orally Active 1 tablet Once a day Cleocin [facility] 38216280540 150 MG Orally March Active 2 capsules Once a day , x2wks 2017 Victoza [facility] 29585284629 18 MG/3ML March 19Sep 15, Active 1.2 mg Subcutaneous 2017 2017 daily Naproxen [facility] 07502418648 500 MG Orally Active 1 tablet Twice a day Results No Known Results Summary Purpose eClinicalWorks Submission
--- OUTSIDE RECORDS SUMMARY | 2019-02-14 16:27 | XMS REPORT ---
[...] End Status Dosage System Date Date Naproxen [facility] 16136591129 500 MG Orally Active 1 tablet Twice a day Clopidogrel [facility] 77256272237 75 MG Orally Active 1 tablet Bisulfate Once a day Bactrim DS [facility] 56831337861 800-160 MG Active 1 tablet Orally Twice a day x2wks Augmentin [facility] 15450506278 250-62.5 MG/5ML Active 1 tablet Orally QD x2wks Pravastatin ND 03655377127 40 MG Orally Active 1 tablet Sodium Once a day Lyrica ND 63225363909 75 MG Orally Inactive 1 capsule Once a day Glimepiride ND 38243313378 4 MG Orally Active 1 tablet twice a day with breakfast or the first main meal of the day Cleocin ND 23218629897 150 MG Orally Active 2 capsules Once a day x2wks Furosemide [facility] 16557155013 40 MG Orally Active 1 tablet Once a day Potassium [facility] 92166257434 20 MEQ Orally Active 1 tablet Chloride Jackeline Once a day with food ER Metoprolol ND 01488708121 50 MG Orally Active 1 tablet Tartrate Twice a day with food Metformin HCl [facility] 66697149514 1000 MG Orally Active 1 tablet Twice a day with a meal Results No Known Results Summary Purpose eClinicalWorks Submission
--- OUTSIDE RECORDS SUMMARY | 2019-02-14 16:28 | XMS REPORT ---
[...] Date Status Dosage System Date One Touch [facility][NOTE 3] 404138875664 1 In Vitro Jul 09December Active as directed Ultra Test twice daily 2017 Strips Results No Known Results Summary Purpose eClinicalWorks Submission
--- OUTSIDE RECORDS SUMMARY | 2019-02-14 16:28 | XMS REPORT ---
[...] Dosage System Date Date BD Pen Needle [facility] 39109311484 32G X 4 MM SQ May 11, Active as directed [place] U/F once a day 2017 Results No Known Results Summary Purpose eClinicalWorks Submission
--- OUTSIDE RECORDS SUMMARY | 2019-02-14 16:28 | XMS REPORT ---
[...] End Status Dosage System Date Date Metoprolol [facility] 08706126279 50 MG Orally Active 1 tablet Tartrate Twice a day with food Furosemide ND 25586750591 40 MG Orally Active 1 tablet Once a day Metformin HCl ND 34754357150 1000 MG Orally Active 1 tablet Twice a day with a meal Clopidogrel ND 91992876121 75 MG Orally Active 1 tablet Bisulfate Once a day Pravastatin ND 84635649181 40 MG Orally Active 1 tablet Sodium Once a day Potassium [facility] 65255995439 20 MEQ Orally Active 1 tablet Chloride Jackeline Once a day with food ER BD Pen Needle [facility] 79135707992 32G X 4 MM SQ May 11, Active as directed [place] U/F once a day 2017 Naproxen ND 81818229294 500 MG Orally Active 1 tablet Twice a day Victoza ND 27948574292 18 MG/3ML Active 1.2 mg Subcutaneous daily Lyrica ND 05622988405 75 MG Orally Apr 23, Active 1 capsule Twice a day 2017 Results No Known Results Summary Purpose eClinicalWorks Submission
--- OUTSIDE RECORDS SUMMARY | 2019-02-14 16:28 | XMS REPORT ---
[...] Medications Results No Known Results Summary Purpose [employer] Submission
--- OUTSIDE RECORDS SUMMARY | 2019-02-14 16:28 | XMS REPORT ---
[...] Dosage System Date Date BD Pen Needle [facility] 50145594298 32G X 4 MM SQ May 11, Active as directed Carolina U/F once a day 2017 Results No Known Results Summary Purpose eClinicalWorks Submission
--- OUTSIDE RECORDS SUMMARY | 2019-02-14 16:28 | XMS REPORT ---
[...] Date Status Dosage System Date Clopidogrel ND 61865143222 75 MG Orally Active 1 tablet Bisulfate Once a day Furosemide ND 44268323915 40 MG Orally Active 1 tablet Once a day Lyrica ND 14496338272 75 MG Orally Apr 23, Active 1 capsule Twice a day 2017 Potassium ND 90154901928 20 MEQ Orally Active 1 tablet Chloride Jackeline Once a day with food ER Pravastatin ND 18429970186 40 MG Orally Active 1 tablet Sodium Once a day Metoprolol ND 64533747178 50 MG Orally Active 1 tablet Tartrate Twice a day with food Metformin HCl ND 86038948153 1000 MG Orally Active 1 tablet Twice a day with a meal One Touch [facility] 018507353134 1 In Vitro Jul 09December Active as directed Ultra Test twice daily 2018 2018 Strips One Touch NDC 0 Lancet subq Jul 09, Active 1 lancet Delica Lancets twice daily 2017 Results No Known Results Summary Purpose eClinicalWorks Submission
--- OUTSIDE RECORDS SUMMARY | 2019-02-14 16:28 | XMS REPORT ---
[...] Date Status Dosage System Date One Touch [facility] 400422193910 1 In Vitro Jul 09December Active as directed Ultra Test twice daily 2017 Strips Victoza [facility] 54248683336 18 MG/3ML Active 1.2 mg Subcutaneous daily Metformin HCl [facility] 44805576917 1000 MG Orally Active 1 tablet Twice a day with a meal Metoprolol [facility] 80104402798 50 MG Orally Active 1 tablet Tartrate Twice a day with food Clopidogrel ND 25409667935 75 MG Orally Active 1 tablet Bisulfate Once a day Naproxen ND 33473934510 500 MG Orally Active 1 tablet Twice a day Lyrica ND 96718961647 75 MG Orally Apr 23, Active 1 capsule Twice a day 2017 Potassium [facility] 23950903179 20 MEQ Orally Active 1 tablet Chloride Jackeline Once a day with food ER Pravastatin [facility] 66276353070 40 MG Orally Active 1 tablet Sodium Once a day Furosemide [facility] 77890077135 40 MG Orally Active 1 tablet Once a day One Touch ND 0 Lancet subq Jul 09, Active 1 lancet Delica Lancets twice daily 2017 BD Pen Needle [facility] 02206993370 32G X 4 MM SQ May 11, Active as directed Carolina U/F once a day 2017 Results No Known Results Summary Purpose eClinicalWorks Submission
--- NOTE | 2019-02-14 16:38 | P.HP ---
Certification for Inpatient Patient admitted to: Inpatient With expected LOS: >2 Midnights Patient will require the following post-hospital care: Home Health Services Practitioner: I am a practitioner with admitting privileges, knowledge of patient current condition, hospital course, and medical plan of care. Services: Services provided to patient in accordance with Admission requirements found in Title 42 Section 412.3 of the Code of Federal Regulations Patient History Date of Service: 02/14/19 Reason for admission: Direct admission for diabetic foot wound History of Present Illness: Patient is a 68 yo F with PMHx of DM2, PVD, HTN, CHF who was recently discharged from the Hospital earlier this month for diabetic foot wound on the left. Patient completed IV antibiotic therapy and has been following up with infectious disease at the wound healing Center. Patient states that the wound has been worsening. She does have a specialized boot that she is wearing. Patient was also seen at the [facility] for arterial disease however no intervention was done due to her infection. Patient still has the PICC line in place. Patient was seen by Dr. Lieberman today at the wound healing Center and was referred directly to the hospital for further evaluation and treatment. Patient reports drainage no foul odor. No fever chills. Patient's symptoms are constant moderate progressively worsening. Her previous wound cultures grew out multiple drug-resistant bacteria including Pseudomonas enterococcus. When seen on the floor the patient was awake alert oriented x3 not in any acute distress Allergies levofloxacin [From Levaquin] Allergy (Verified 01/19/19 02:46) Nausea/Vomiting Home medications list reviewed: Yes Home Medications: Furosemide [Lasix*] 40 mg PO DAILY 05/11/16 Metformin HCl [Metformin ER Osmotic] 1,000 mg PO BID 05/11/16 Metoprolol Tartrate [Lopressor*] 50 mg PO BID 05/11/16 Pravastatin [Pravachol*] 40 mg PO DAILY 05/11/16 Naproxen [Naprosyn] 500 mg PO BID 11/13/17 Pregabalin [Lyrica*] 75 mg PO BID 09/04/18 Clopidogrel Bisulfate [Plavix] 1 tab PO DAILY 01/19/19 Insulin Glargine/Lixisenatide [Soliqua 100 Unit-33 Mcg/ml Pen] 26 unit SQ DAILY 01/20/19 - Past Medical/Surgical History Has patient received pneumonia vaccine in the past: Yes Diabetic: Yes -: CAD -: DIABETES -: HTN -: cholesterol -: neuropathy -: Left Leg artery clot removed -: CHF -: triple bypass -: CABG X 3 -: cataract sx - Family History Father -: Stroke Sister -: Cancer Mother -: Heart disease - Social History Smoking Status: Never smoker Alcohol use: No CD- Drugs: No Caffeine use: Yes Place of Residence: Home Review of Systems 10-point ROS is otherwise unremarkable Integumentary: As per HPI Physical Examination - Vital Signs Temperature: 97.5 F Blood Pressure: 121/68 Pulse: 85 Respirations: 18 Pulse Ox (%): 99 - Physical Exam General: Alert, Oriented x3, Mild distress HEENT: Atraumatic, PERRLA, Mucous membr. moist/pink, EOMI, Sclerae nonicteric Neck: Supple, JVD not distended Respiratory: Clear to auscultation bilaterally, Normal air movement Cardiovascular: No edema, Regular rate/rhythm, Normal S1 S2, Abnormal pulses Gastrointestinal: Normal bowel sounds, Soft and benign, Non-distended, No tenderness Musculoskeletal: No tenderness Integumentary: Diabetic ulcer (Left foot: Large wound on the plantar and lateral aspect of the 5th digit with tendon exposed. Pustular drainage present. No foul odor. ), Arterial ulcer (Right foot 3rd 4th digit with dry arterial ulcer) Neurological: Normal speech, Normal strength at 5/5 x4 extr, Normal tone, Cranial nerves 3-12 intact, Normal affect - Studies Labs pending at this time Imagings Data: EKG shows sinus rhythm Assessment and Plan - Problems (Diagnosis) (1) Diabetic foot ulcer Current Visit: No Status: Acute Qualifiers: Diabetic foot ulcer location: midfoot Diabetes mellitus type: type 2 Laterality: left Non-pressure ulcer stage: unspecified non-pressure ulcer stage Qualified Code(s): E11.621 - Type 2 diabetes mellitus with foot ulcer; L97.429 - Non-pressure chronic ulcer of left heel and midfoot with unspecified severity (2) 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 transplanted heart: [place] heart Associated angina: without angina Qualified Code(s): I25.10 - Atherosclerotic heart disease of [place] coronary artery without angina pectoris (5) HTN (hypertension) Onset Date: 05/26/16 Current Visit: No Status: Chronic Qualifiers: Hypertension type: essential hypertension (6) Hyperlipidemia Onset Date: 09/05/18 Current Visit: No Status: Chronic Qualifiers: Hyperlipidemia type: mixed hyperlipidemia Qualified Code(s): E78.2 - Mixed hyperlipidemia (7) Peripheral vascular disease due to secondary diabetes Current Visit: No Status: Chronic (8) Type 2 diabetes mellitus with foot ulcer Current Visit: No Status: Chronic Qualifiers: Diabetes mellitus nursing home insulin use: with rat exterminator use Qualified Code( s): E11.621 - Type 2 diabetes mellitus with foot ulcer; L97.509 - Non-pressure chronic ulcer of other part of unspecified foot with unspecified severity; Z79.4 - intermission coordinator (current) use of insulin - Plan Will start broad-spectrum IV antibiotics due to recent multi-drug resistant bacteria from wound cultures. Contact isolation Consult infectious disease Sliding scale insulin. Monitor Accu-Cheks Resume home medications once reconciled. Obtain blood cultures and wound cultures Obtain CBC CMP and CRP Obtain Chest x-ray and bilateral foot x-ray Obtain EKG Pain control Plan to discharge in: 48 Hours - Advance Directives Does patient have a Living Will: No Does patient have a Durable POA for Healthcare: No - Code Status/Comfort Care Code Status Assessed: Yes
[2019-02-14] MEDS ORDERED: Meropenem 500 MG in NA CHLORIDE 0.9% 100 ML IV SCH (17:00)
[2019-02-14] MEDS: INSULIN -REGULAR HUMAN 50 UNIT/0.5 ML ML SQ SCH ×2 (17:00→21:00)
[2019-02-14] MEDS: NA CHLORIDE 0.9% 1,000 ML IV SCH ×2 (17:00→22:01)
[2019-02-14] MEDS ORDERED: Meropenem 500 MG VIAL IV SCH (17:00)
[2019-02-14 17:10] LABS: Absolute Monocytes 0.6 K/uL (0.1-1.3); Absolute Neutrophil 4.9 K/uL (1.8-8.0); Basophils % 0.9 % (0-1.3); Eosinophils % 8.6 % (0-4.4); Hematocrit 28.6 % (36.0-45.0); Lymphocytes % 24.7 % (15.3-44.8); MPV 8.2 fL (7.6-11.3); Monocytes % 6.9 % (3.3-12.3); RBC Red Blood Cell Count 3.74 M/uL (3.86-4.86)
--- NOTE | 2019-02-14 17:24 | RAD REPORT ---
EXAM DESCRIPTION: RAD - Chest Single View - 02/14/2019 5:14 pm CLINICAL HISTORY: Cough Chest pain. COMPARISON: Chest Single View dated 01/26/2019; Chest Single View dated 01/22/2019; Abdomen 1 View (KUB ) dated 09/15/2018; Chest Single View dated 09/07/2018 FINDINGS: Portable technique limits examination quality. The lungs are grossly clear. The heart is normal in size. Right-sided PICC line has tip in SVC.Sterno ember wires present. IMPRESSION: No acute intrathoracic process suspected.
[2019-02-14 17:25] LABS: Albumin 3.3 g/dL (3.4-5.0); Bilirubin Total 0.5 mg/dL (0.2-1.0); C-Reactive Protein 7.37 mg/L (<3.00); Potassium 3.9 mmol/L (3.5-5.1); Protein, Total 8.2 g/dL (6.4-8.2)
--- NOTE | 2019-02-14 17:29 | RAD REPORT ---
EXAM DESCRIPTION: RAD - Foot Right 3 View - 02/14/2019 5:15 pm CLINICAL HISTORY: foot diabetic wound, osteo COMPARISON: Foot Right Wo Cont dated 12/13/2017; Foot Right Wo Cont dated 05/16/2016; Foot Right 3 Vie w dated 05/09/2016 FINDINGS: Prominent flatfoot deformity is seen. Heavy atherosclerosis is noted with large plantar ca lcaneal spur. Soft tissue swelling affects the second toe. Definitive plain radiograph evidence of os teomyelitis is not seen. However, if osteomyelitis remains a clinical concern, MR imaging would be ad vised for followup.
[2019-02-14] MEDS ORDERED: VANCOMYCIN 1.25 GM in NA CHLORIDE 0.9% 250 ML IV SCH (18:00)
[2019-02-14] MEDS: VANCOMYCIN 1.25 GM in NA CHLORIDE 0.9% 250 ML IV SCH (18:21)
[2019-02-14] MEDS ORDERED: GLUCAGON 1 MG/VIAL IM PRN (18:27)
[2019-02-14] MEDS ORDERED: D50W 25 GM/50 ML SYRINGE IV PRN (18:27)
[2019-02-14] MEDS: METOPROLOL TAR 50 MG TAB PO SCH (22:02)
[2019-02-14] MEDS: ATORVASTATIN 10 MG TAB PO SCH (22:02)
[2019-02-14] MEDS: PREGABALIN 75 MG CAP PO SCH (22:02)
[2019-02-14] MEDS ORDERED: NAPROXEN 250 MG TAB PO PRN (22:19)
[2019-02-15 06:03] LABS: Urine Appearance CLEAR; Urine Bilirubin NEGATIVE (NEG); Urine Blood NEGATIVE (NEG); Urine Color YELLOW; Urine Glucose NEGATIVE (NEG); Urine Protein NEGATIVE (NEG); Urine Urobilinogen 0.2 mg/dL (0.2-1.0); Urine pH 6.5 (5.0-7.0)
[2019-02-15 06:06] LABS: Urine Microscopic Reflex NO UMIC
[2019-02-15] MEDS: NA CHLORIDE 0.9% 1,000 ML IV SCH (06:20)
[2019-02-15 06:45] LABS: Absolute Monocytes 0.5 K/uL (0.1-1.3); Absolute Neutrophil 3.6 K/uL (1.8-8.0); Basophils % 1.1 % (0-1.3); Eosinophils % 15.6 % (0-4.4); Hematocrit 25.5 % (36.0-45.0); Lymphocytes % 16.7 % (15.3-44.8); MPV 7.9 fL (7.6-11.3); Monocytes % 7.9 % (3.3-12.3); RBC Red Blood Cell Count 3.34 M/uL (3.86-4.86)
[2019-02-15 07:01] LABS: Potassium 4.3 mmol/L (3.5-5.1)
[2019-02-15] MEDS: INSULIN -REGULAR HUMAN 50 UNIT/0.5 ML ML SQ SCH ×4 (07:30→21:00)
[2019-02-15 08:32] LABS: Blood Morphology Comment NOT SEEN (NOT SEEN); Platelet Estimate ADEQ
--- NOTE | 2019-02-15 08:40 | EKG ---
Test Date: 2019-02-14 Test Time: 16:40:13 Wildlife Ecologist: SHANNAN MEASUREMENT RESULTS: Intervals: Rate: 79 MO: 138 QRSD: 98 QT: 398 QTc: 456 [place]: P: 35 MO: 138 QRS: -55 T: 1 INTERPRETIVE STATEMENTS: Normal sinus rhythm Left axis deviation Possible Anterior infarct, age undetermined Abnormal ECG Compared to ECG 01/18/2019 21:52:26 Myocardial infarct finding now present Electronically Signed On 02-15-19 08:39:52 CDT by Andrea Toledo
--- NOTE | 2019-02-15 08:49 | RAD REPORT ---
EXAM DESCRIPTION: RAD - Foot Left 3 View - 02/15/2019 6:56 am CLINICAL HISTORY: diabetic foot wound Pain and swelling COMPARISON: Foot Left 3 View dated 02/05/2019; Foot Left 3 View dated 01/26/2019 FINDINGS: Large soft tissue wound is seen along the lateral aspect of the forefoot. There is deminer alization suspected of the distal shaft of the fifth metatarsal suggesting mild osteomyelitis. No fra cture seen.
[2019-02-15] MEDS ORDERED: HOME MED 1 EA UNK (Pravastatin [Pravachol*] 40 MG) PO SCH (09:00)
[2019-02-15] MEDS ORDERED: [UNRECOGNIZED DRUG - OTHER] SQ SCH (09:00)
[2019-02-15] MEDS: PREGABALIN 75 MG CAP PO SCH ×2 (09:32→22:06)
[2019-02-15] MEDS: FUROSEMIDE 40 MG TABLET PO SCH (09:32)
[2019-02-15] MEDS: METOPROLOL TAR 50 MG TAB PO SCH ×2 (09:32→22:06)
[2019-02-15] MEDS: CLOPIDOGREL 75 MG TABLET PO SCH (09:32)
[2019-02-15] MEDS: Meropenem 500 MG in NA CHLORIDE 0.9% 100 ML IV SCH ×2 (10:31→22:06)
--- NOTE | 2019-02-15 16:30 | P.PN ---
Subjective Date of Service: 02/15/19 Chief Complaint: Direct admission for diabetic foot wound Subjective: Improving (Patient seen and examined chart reviewed case discussed with RN and Dr. Mio Stein. Patient is doing well. Denies any significant amount of pain. No fevers overnight) Review of Systems 10-point ROS is otherwise unremarkable Integumentary: As per HPI Physical Examination - Vital Signs Temperature: 96.8 F Blood Pressure: 131/69 Pulse: 78 Respirations: 16 Pulse Ox (%): 100 - Physical Exam General: Alert, In no apparent distress, Oriented x3, Other (Elderly female) HEENT: Atraumatic, PERRLA, EOMI Neck: Supple, JVD not distended Respiratory: Clear to auscultation bilaterally, Normal air movement Cardiovascular: No edema, Regular rate/rhythm, Normal S1 S2, Abnormal pulses Gastrointestinal: Normal bowel sounds, Soft and benign, Non-distended, No tenderness Integumentary: Diabetic ulcer (Left foot), Arterial ulcer (Right foot) Neurological: Normal speech, Normal strength at 5/5 x4 extr, Normal tone, Normal affect - Studies Laboratory Data (last 24 hrs) 02/15/19 06:23: Sodium 143, Potassium 4.3, BUN 28 H, Creatinine 0.88, Glucose 117 H 02/15/19 06:22: WBC 6.1 D, Hgb 8.4 L, Hct 25.5 L, Plt Count 394 02/14/19 16:40: Sodium 140, Potassium 3.9, BUN 34 H, Creatinine 1.26, Glucose 135 H, Total Bilirubin 0.5, AST 19, ALT 16, Alkaline Phosphatase 129 H 02/14/19 16:40: WBC 8.2, Hgb 9.5 L, Hct 28.6 L, Plt Count 487 H Microbiology Data (last 24 hrs): 02/14/19 16:45 Wound - Left Foot Gram Stain - Final 02/14/19 16:45 Wound - Right Foot Gram Stain - Final Imagings Data: Personally reviewed EXAM DESCRIPTION: RAD - Foot Left 3 View - 02/15/2019 6:56 am CLINICAL HISTORY: diabetic foot wound Pain and swelling COMPARISON: Foot Left 3 View dated 02/05/2019; Foot Left 3 View dated 01/26/2019 FINDINGS: Large soft tissue wound is seen along the lateral aspect of the forefoot. There is demineralization suspected of the distal shaft of the fifth metatarsal suggesting mild osteomyelitis. No fracture seen. Medications List Reviewed: Yes Assessment And Plan - Current Problems (Diagnosis) (1) Diabetic foot ulcer Current Visit: No Status: Acute Qualifiers: Diabetic foot ulcer location: midfoot Diabetes mellitus type: type 2 Laterality: left Non-pressure ulcer stage: with bone involvement without evidence of necrosis Qualified Code(s): E11.621 - Type 2 diabetes mellitus with foot ulcer; L97.426 - Non-pressure chronic ulcer of left heel and midfoot with bone involvement without evidence of necrosis (2) Osteomyelitis due to secondary diabetes Onset Date: 05/26/16 Current Visit: No Status: Acute (3) Anemia Onset Date: 05/26/16 Current Visit: No Status: Chronic Qualifiers: Anemia type: iron deficiency Iron deficiency anemia type: unspecified iron deficiency Qualified Code(s): D50.9 - Iron deficiency anemia, unspecified (4) CAD (coronary artery disease) Onset Date: 05/26/16 Current Visit: No Status: Chronic Qualifiers: Coronary Disease-Associated Artery/Lesion type: [place] artery [place] vs. transplanted heart: [place] heart Associated angina: without angina Qualified Code(s): I25.10 - Atherosclerotic heart disease of [place] coronary artery without angina pectoris (5) HTN (hypertension) Onset Date: 05/26/16 Current Visit: No Status: Chronic Qualifiers: Hypertension type: essential hypertension (6) Hyperlipidemia Onset Date: 09/05/18 Current Visit: No Status: Chronic Qualifiers: Hyperlipidemia type: mixed hyperlipidemia Qualified Code(s): E78.2 - Mixed hyperlipidemia (7) Peripheral vascular disease due to secondary diabetes Current Visit: No Status: Chronic (8) Type 2 diabetes mellitus with foot ulcer Current Visit: No Status: Chronic Qualifiers: Diabetes mellitus half-way insulin use: with terminal system operator use Qualified Code( s): E11.621 - Type 2 diabetes mellitus with foot ulcer; L97.509 - Non-pressure chronic ulcer of other part of unspecified foot with unspecified severity; Z79.4 - superintendent terminal (current) use of insulin - Plan Patient x-ray on the left foot shows osteomyelitis. Consult surgery as Dr. Booth (patient's primary surgeon) is out of town. Continue broad-spectrum IV antibiotics due to recent multi-drug resistant bacteria from wound cultures. Sliding scale insulin. Monitor Accu-Cheks Follow up on blood cultures and wound cultures Pain control Dc IV fluids DC NSAIDs Infectious Disease recommends L TAC placement for wound care and IV antibiotics and hyperbaric 's. Referral has been sent. Will discuss with surgery regarding need for possible debridement Discharge Plan: LTAC Plan to discharge in: 24 Hours
--- NOTE | 2019-02-15 17:18 | CON ---
History Of Present Illness: Patient is a 68-year-old female. She was seen by me in the [facility] yesterday when she was found to have a large diabetic foot ulcer causing a defect on her left l ateral aspect of the foot exposing tendons and muscles. Right foot with fourth and fifth toes showin g necrotic and gangrenous changes. The patient was sent to the hospital for admission for IV antibio tic and possible debridement of the wounds. She has significant past medical history of diabetes wit h severe neuropathy. As per patient, she was wearing new shoes, which initiated this challenge and t he patient went to see other doctors in [place] at that time after her wound initiation and was not able to control the wound and infection. The patient then ended up to coming to [place] where I saw the patient. The patient is now getting IV antibiotics. PICC line in place. 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 Past Medical History: Diabetes mellitus, osteomyelitis of the foot, coronary artery disease, periphe ral vascular disease, neuropathy, hypertension, hypercholesteremia, congestive heart failure, triple bypass, cataract surgery. Social History: Nonsmoker, nondrinker. Family History: Stroke, cancer and heart disease. Medications: Vancomycin and meropenem. See MARs for other medication. Allergies: NO KNOWN DRUG ALLERGIES. Review of Systems: A 10-point review was performed. Allergies: LEVAQUIN. Review of Systems: A 10-point review was performed. Physical Examination: General: This is a 68-year-old female, lying in bed, not in any acute cardiopulmonary distress. Vital Signs: Temperature 97, pulse 65, respirations 16, blood pressure 139/86. HEENT: Unremarkable. Neck: Supple. Lungs: Basal crackles. Heart: S1, S2. Regular. Abdomen: Soft, nontender. Bowel sounds present. Extremity: Left leg wound noted, right foot toe wounds noted. Laboratory Data: Shows WBC 6.1, hemoglobin 8.4, platelets 394. Chemistry shows sodium 143, potassiu m 4.3, chloride 113, bicarb 24, BUN 28, creatinine 0.8, glucose 117. X-ray of the foot shows large soft tissue wound is seen along the lateral aspect of the forefoot. suspected of distal shaft of the fifth metatarsal suggesting of mild osteomyelitis. Right foot x-ray shows with possible osteomyelitis of second toe. Assessment And Plan: This is a 68-year-old female coming in with multiple areas of diabetic foot [facility] er, large one on the left side and then . We will continue IV antibiotic for 6 weeks. We will consider hyperbaric treatment, also continue wound care. We will recommend to have debridement done , apply Medihoney with alginate to the wound site and Iodosorb to the left foot wounds . Keep leg elevated as much as possible and consider transferring the patient to [facility]. Thank you Dr. Carvajal for consult. HOLLIE/CHRIS Voice ID: [id number] Report ID: [id number]
[2019-02-15] MEDS: ATORVASTATIN 10 MG TAB PO SCH (22:06)
[2019-02-15] MEDS: HYDROCODONE/APAP 7.5/325 MG TAB PO PRN (22:22)
--- NOTE | 2019-02-15 22:54 | CON ---
Date of Consultation: 02/15/2019 Diagnosis: Bilateral foot infected diabetic ulcer. History Of Present Illness: This is the case of a 68-year-old patient with history of diabetes, onur pheral vascular disease, hypertension, congestive heart failure, admitted to the hospital with infect ed diabetic foot ulcer bilaterally. Surgical consult was obtained. The patient states that she has been using some diabetic shoes and she has been very active and then noticed to have these ulcers pre sent. She was found to have osteomyelitis and surgical consult was obtained for debridement of the u lcers. Allergies: INCLUDE LEVAQUIN. Medications: Reviewed. Family History: Includes stroke and heart disease. Medical Problems: Include neuropathy, diabetes, CAD, hypertension, congestive heart failure. Surgeries: Cardiac bypass x3. Social History: She does not smoke. She does not drink alcohol. Review of Systems: Ten points otherwise unremarkable. Physical Examination: GENERAL: The patient is awake and alert. HEENT: Pupils are equal and reactive. Anicteric. NECK: Supple. CHEST: Clear. ABDOMEN: Soft and depressible. EXTREMITIES: Peripheral pulses diminished bilaterally. No cellulitis. No abscess. Necrotic wound present. The patient has bilateral feet decubitus ulcer all the way down to bone on the left side an d muscle, tendons exposed. Some of these tendons are dry and present on the left side and right side . The patient has an ulcer on the distal foot region involving the fifth toe and the distal metatars al region. She also have necrotic tissue that needs to be debrided. Laboratory Data: Blood work shows WBC count of 8.2, hemoglobin of 9.5. Glucose 117. UA with nitrit e negative. X-ray of the left foot suspected for osteomyelitis. Assessment: This is a 68-year-old patient with infected necrotic diabetic ulcer of bilateral feet. The patient need debridement with benefits, alternatives, and risks including, but not limited to inf ection, bleeding, damage to adjacent structures, anesthesia complications, ID, even . She also understands this will require wound care. She eventually will need long-term antibiotics. She is go ing to be n.p.o. after midnight. VAHE/CHRIS Voice ID: [id number] Report ID: [id number]
[2019-02-16] MEDS ORDERED: VANCOMYCIN 1.25 GM in NA CHLORIDE 0.9% 250 ML IV SCH (06:00)
[2019-02-16 06:04] LABS: Absolute Lymphocytes (CBC) 1.7 K/uL (0.7-4.9); Absolute Monocytes 0.5 K/uL (0.1-1.3); Absolute Neutrophil 2.4 K/uL (1.8-8.0); Hematocrit 26.1 % (36.0-45.0); Lymphocytes % 29.9 % (15.3-44.8); MPV 7.7 fL (7.6-11.3); Monocytes % 8.5 % (3.3-12.3); RBC Red Blood Cell Count 3.42 M/uL (3.86-4.86)
[2019-02-16 06:06] LABS: Eosinophils % 16.9 % (0-4.4)
[2019-02-16 06:29] LABS: Potassium 4.2 mmol/L (3.5-5.1)
[2019-02-16] MEDS: VANCOMYCIN 1.25 GM in NA CHLORIDE 0.9% 250 ML IV SCH (06:52)
[2019-02-16] MEDS: INSULIN -REGULAR HUMAN 50 UNIT/0.5 ML ML SQ SCH ×5 (07:30→22:13)
[2019-02-16] MEDS: CLOPIDOGREL 75 MG TABLET PO SCH (09:00)
[2019-02-16] MEDS: LIXISENATIDE SQ SCH (09:00)
[2019-02-16] MEDS: INSULIN GLARGINE SQ SCH (09:00)
[2019-02-16] MEDS: METOPROLOL TAR 50 MG TAB PO SCH ×2 (09:48→22:13)
[2019-02-16] MEDS: PREGABALIN 75 MG CAP PO SCH ×2 (09:48→22:12)
[2019-02-16] MEDS: FUROSEMIDE 40 MG TABLET PO SCH (09:48)
[2019-02-16] MEDS: Meropenem 500 MG in NA CHLORIDE 0.9% 100 ML IV SCH ×2 (09:49→21:00)
--- NOTE | 2019-02-16 12:52 | P.PN ---
Subjective Date of Service: 02/16/19 Chief Complaint: Direct admission for diabetic foot wound Subjective: Improving Patient seen and examined chart reviewed and case discussed with RN. Patient undergoing debridement today by surgery. Patient overall denies any significant pain Review of Systems 10-point ROS is otherwise unremarkable Integumentary: As per HPI Physical Examination - Vital Signs Temperature: 97.8 F Blood Pressure: 122/67 Pulse: 61 Respirations: 16 Pulse Ox (%): 100 - Physical Exam General: Alert, In no apparent distress, Oriented x3, Other (Elderly female) HEENT: Atraumatic, PERRLA, EOMI Neck: Supple, JVD not distended Respiratory: Clear to auscultation bilaterally, Normal air movement Cardiovascular: No edema, Regular rate/rhythm, Normal S1 S2, Abnormal pulses Gastrointestinal: Normal bowel sounds, Soft and benign, Non-distended, No tenderness Musculoskeletal: No tenderness Integumentary: Diabetic ulcer (Left foot), Arterial ulcer (Right foot) Neurological: Normal speech, Normal tone, Normal affect - Studies Laboratory Data (last 24 hrs) 02/16/19 05:40: Sodium 142, Potassium 4.2, BUN 26 H, Creatinine 0.78, Glucose 96 02/16/19 05:40: WBC 5.5, Hgb 8.3 L, Hct 26.1 L, Plt Count 382 Microbiology Data (last 24 hrs): 02/14/19 16:45 Wound - Right Foot Gram Stain - Final 02/14/19 16:45 Wound - Left Foot Gram Stain - Final Medications List Reviewed: Yes Assessment And Plan - Current Problems (Diagnosis) (1) Diabetic foot ulcer Current Visit: No Status: Acute Qualifiers: Diabetic foot ulcer location: midfoot Diabetes mellitus type: type 2 Laterality: left Non-pressure ulcer stage: with bone involvement without evidence of necrosis Qualified Code(s): E11.621 - Type 2 diabetes mellitus with foot ulcer; L97.426 - Non-pressure chronic ulcer of left heel and midfoot with bone involvement without evidence of necrosis (2) Osteomyelitis due to secondary diabetes Onset Date: 05/26/16 Current Visit: No Status: Acute (3) Anemia Onset Date: 05/26/16 Current Visit: No Status: Chronic Qualifiers: Anemia type: iron deficiency Iron deficiency anemia type: unspecified iron deficiency Qualified Code(s): D50.9 - Iron deficiency anemia, unspecified (4) CAD (coronary artery disease) Onset Date: 05/26/16 Current Visit: No Status: Chronic Qualifiers: Coronary Disease-Associated Artery/Lesion type: [place] artery [place] vs. transplanted heart: [place] heart Associated angina: without angina Qualified Code(s): I25.10 - Atherosclerotic heart disease of [place] coronary artery without angina pectoris (5) HTN (hypertension) Onset Date: 05/26/16 Current Visit: No Status: Chronic Qualifiers: Hypertension type: essential hypertension (6) Hyperlipidemia Onset Date: 09/05/18 Current Visit: No Status: Chronic Qualifiers: Hyperlipidemia type: mixed hyperlipidemia Qualified Code(s): E78.2 - Mixed hyperlipidemia (7) Peripheral vascular disease due to secondary diabetes Current Visit: No Status: Chronic (8) Type 2 diabetes mellitus with foot ulcer Current Visit: No Status: Chronic Qualifiers: Diabetes mellitus senior living insulin use: with senior living use Qualified Code( s): E11.621 - Type 2 diabetes mellitus with foot ulcer; L97.509 - Non-pressure chronic ulcer of other part of unspecified foot with unspecified severity; 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 Bond Continue broad-spectrum IV antibiotics due to recent multi-drug resistant bacteria from wound cultures. Repeat cultures so far growing on MRSA Sliding scale insulin. Monitor Accu-Cheks Follow up on final blood cultures and wound cultures Pain control Infectious Disease recommends LTAC placement for wound care and IV antibiotics and hyperbaric 's. Referral has been sent. Dc once accepted Discharge Plan: LTAC Plan to discharge in: 24 Hours
[2019-02-16] MEDS ORDERED: NA CHLORIDE 0.9% 1,000 ML ONE (13:07)
[2019-02-16] MEDS ORDERED: PROPOFOL 200 MG/20 ML VIAL IV ONE (13:35)
[2019-02-16] MEDS ORDERED: FENTANYL CITR 100 MCG/2 ML ONE (13:35)
[2019-02-16] MEDS ORDERED: LIDOCAINE 2% MPF 5 ML VIAL ONE (13:36)
[2019-02-16] MEDS ORDERED: MIDAZOLAM HCL 2 MG/2 ML INJ ONE (13:36)
[2019-02-16] MEDS ORDERED: EPHEDRINE SULF 50 MG/ML VIAL ONE (13:56)
--- NOTE | 2019-02-16 14:34 | P.BOP ---
Preoperative diagnosis: bilateral feet infected necrotic diabetic ulcer Postoperative diagnosis: same Primary procedure: 1. Excisional debridement down to tendon and bone 6x6 cm left foot Secondary procedure: 2. Excisional debridement and bone 3 x 2.5 cm right foot Estimated blood loss: <10cc Specimen: necrotic tendon pieces, necrotic subQ Findings: see dictation Anesthesia: General Complications: None Transferred to: Recovery Room Condition: Good
[2019-02-16] MEDS: HYDROCODONE/APAP 7.5/325 MG TAB PO PRN ×2 (15:35→22:12)
--- NOTE | 2019-02-16 21:01 | OP ---
Date of Procedure: 02/16/2019 Surgeon: Tonny Bodn MD Preoperative Diagnosis: Bilateral feet infected necrotic diabetic ulcers. Postoperative Diagnosis: Bilateral feet infected necrotic diabetic ulcers. Procedures: 1.Excisional debridement down to tendon and bone of left foot necrotic diabetic ulcer, 6 x 6 cm. 2.Excisional debridement down to bone of right foot diabetic ulcer, 3 x 2.5 cm. Specimens: Necrotic tendon pieces and necrotic subcutaneous tissue. Anesthesia: General plus local. Indications: This is the case of a lady who comes to us with bilateral ulcers, severe peripheral vas cular disease, osteomyelitis on imaging, but she has 2 necrotic ulcers. The benefits, alternatives, and risks of debridement have been fully explained to the patient, which include but not limited to i nfection, bleeding, damage to adjacent structures, anesthetic complication, nonhealing wound, AR, and even . She also understands this may not relieve the symptoms. She might need more than one s urgical intervention. She will require wound care. She will require long-term antibiotics. She sig calvin a consent. She understands also the importance of diabetes control and also to discuss with her primary doctor options, to see her vascular surgeon to see if there is any possibility of any improve ment of her circulation. Description Of Procedure: The patient was brought to the operating room, placed in supine position. Anesthesia was done without complication. Bilateral feet were prepped and draped in a sterile fashi on. Local anesthetic was applied. We started with the left foot first. There was necrotic tissue p resent and some of that necrotic tissue was necrotic tendon, some of that had to be debrided. This g oes all the way down to tendon and muscle. All the necrotic tissue was removed, sent for specimen. Area was irrigated and covered with dry dressing. Then, we went to the right side. This ulcer on th e right side is on the distal foot, fifth metatarsal region and also fifth toe. The necrotic tissue was removed and the bone was just exposed right underneath. So this was cultured too. The area was irrigated. Then, the area was covered with wet-to-dry dressing. The patient tolerated the procedure well. The patient was sent to Recovery in stable condition. This patient will require long-term an tibiotics, may even need removal of the fifth toe if the bone does not respond to treatment. VAHE/CHRIS Voice ID: [id number] Report ID: [id number]
[2019-02-16] MEDS: ATORVASTATIN 10 MG TAB PO SCH (22:12)
[2019-02-17] MEDS: VANCOMYCIN 1.25 GM in NA CHLORIDE 0.9% 250 ML IV SCH (04:56)
[2019-02-17 06:06] LABS: BUN Blood Urea Nitrogen 20 mg/dL (7-18); Bicarbonate 25 mmol/L (21-32); Glucose Level 177 mg/dL (74-106); Potassium 3.9 mmol/L (3.5-5.1); Sodium Level 142 mmol/L (136-145)
[2019-02-17 06:08] LABS: Absolute Lymphocytes (CBC) 1.4 K/uL (0.7-4.9); Absolute Monocytes 0.4 K/uL (0.1-1.3); Absolute Neutrophil 2.7 K/uL (1.8-8.0); Basophils % 1.3 % (0-1.3); Eosinophils % 9.6 % (0-4.4); Hematocrit 24.7 % (36.0-45.0); Lymphocytes % 27.8 % (15.3-44.8); MPV 8.2 fL (7.6-11.3); Monocytes % 8.9 % (3.3-12.3); RBC Red Blood Cell Count 3.26 M/uL (3.86-4.86)
[2019-02-17] MEDS: HYDROCODONE/APAP 7.5/325 MG TAB PO PRN ×2 (08:12→14:24)
[2019-02-17] MEDS: CLOPIDOGREL 75 MG TABLET PO SCH (08:15)
[2019-02-17] MEDS: PREGABALIN 75 MG CAP PO SCH ×2 (08:15→20:42)
[2019-02-17] MEDS: Meropenem 500 MG in NA CHLORIDE 0.9% 100 ML IV SCH ×2 (08:15→20:43)
[2019-02-17] MEDS: FUROSEMIDE 40 MG TABLET PO SCH (08:21)
[2019-02-17] MEDS: METOPROLOL TAR 50 MG TAB PO SCH ×2 (08:22→21:00)
[2019-02-17] MEDS: INSULIN GLARGINE SQ SCH (08:22)
[2019-02-17] MEDS: LIXISENATIDE SQ SCH (08:22)
[2019-02-17] MEDS: INSULIN -REGULAR HUMAN 50 UNIT/0.5 ML ML SQ SCH ×4 (08:23→20:41)
--- NOTE | 2019-02-17 13:39 | P.PN ---
Subjective Date of Service: 02/17/19 Chief Complaint: Direct admission for diabetic foot wound Patient seen and examined chart reviewed and case discussed with RN. Patient had debridement done by surgery. Patient overall denies any significant pain Review of Systems 10-point ROS is otherwise unremarkable Physical Examination - Vital Signs Temperature: 97.8 F Blood Pressure: 112/64 Pulse: 74 Respirations: 16 Pulse Ox (%): 100 - Physical Exam General: Alert, In no apparent distress, Oriented x3 HEENT: Atraumatic, PERRLA, EOMI Neck: Supple, JVD not distended Respiratory: Clear to auscultation bilaterally, Normal air movement Cardiovascular: Regular rate/rhythm, Normal S1 S2, Abnormal pulses Gastrointestinal: Normal bowel sounds, Soft and benign, Non-distended, No tenderness Musculoskeletal: No tenderness Integumentary: No rashes Neurological: Normal speech, Normal tone, Normal affect - Studies Laboratory Data (last 24 hrs) 02/17/19 04:52: Sodium 142, Potassium 3.9, BUN 20 H, Creatinine 0.62, Glucose 177 H 02/17/19 04:52: WBC 5.1, Hgb 8.0 L, Hct 24.7 L, Plt Count 370 Microbiology Data (last 24 hrs): 02/16/19 14:00 Wound - Right Foot Gram Stain - Final 02/16/19 14:00 Wound - Right Foot Gram Stain - Final 02/14/19 16:45 Wound - Right Foot Gram Stain - Final 02/14/19 16:45 Wound - Right Foot Culture & Sensitivity - Final Meth Resistant Staph Aureus Stenotrphoomonas Maltophilia 02/14/19 16:45 Wound - Left Foot Gram Stain - Final 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 Onset Date: 05/26/16 Current Visit: No Status: Acute (3) Anemia Onset Date: 05/26/16 Current Visit: No Status: Chronic Qualifiers: Anemia type: iron deficiency Iron deficiency anemia type: unspecified iron deficiency Qualified Code(s): D50.9 - Iron deficiency anemia, unspecified (4) CAD (coronary artery disease) Onset Date: 05/26/16 Current Visit: No Status: Chronic Qualifiers: Coronary Disease-Associated Artery/Lesion type: [place] artery [place] vs. transplanted heart: [place] heart Associated angina: without angina Qualified Code(s): I25.10 - Atherosclerotic heart disease of [place] coronary artery without angina pectoris (5) HTN (hypertension) Onset Date: 05/26/16 Current Visit: No Status: Chronic Qualifiers: Hypertension type: essential hypertension (6) Hyperlipidemia Onset Date: 09/05/18 Current Visit: No Status: Chronic Qualifiers: Hyperlipidemia type: mixed hyperlipidemia Qualified Code(s): E78.2 - Mixed hyperlipidemia (7) Peripheral vascular disease due to secondary diabetes Current Visit: No Status: Chronic (8) Type 2 diabetes mellitus with foot ulcer Current Visit: No Status: Chronic Qualifiers: Diabetes mellitus group home insulin use: with group home use Qualified Code( s): E11.621 - Type 2 diabetes mellitus with foot ulcer; L97.509 - Non-pressure chronic ulcer of other part of unspecified foot with unspecified severity; 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 Repeat cultures so far growing on MRSA, Strentrophoomonas. add Levaquin. Dc meropenem Sliding scale insulin. Monitor Accu-Cheks Follow up on final blood cultures and wound cultures Pain control Infectious Disease recommends LTAC placement for wound care and IV antibiotics and hyperbaric 's. Referral has been sent. Jun once accepted Discharge Plan: LTAC
--- NOTE | 2019-02-17 19:50 | PN ---
Date of Progress Note: 02/17/2019 Diagnosis: Bilateral infected diabetic ulcer. Subjective: The patient is doing well, improving. She had debridement yesterday. Physical Examination: Chest: Clear. Abdomen: Soft and depressible. Extremities: Good capillary refill. Intact surgical site. Culture is still pending. Plan: Continue dressing changes. The patient has clinical areas of osteomyelitis so from what I can see there is a plan for a intermodal dispatcher LTAC and IV antibiotics. In the meantime, off-loading, control of diabetes, and dressing changes is very important. She is also consulted about proper nutrition. HM/MODL Voice ID: [id number] Report ID: [id number]
[2019-02-17] MEDS: ATORVASTATIN 10 MG TAB PO SCH (20:42)
[2019-02-18] MEDS: VANCOMYCIN 1.25 GM in NA CHLORIDE 0.9% 250 ML IV SCH (06:19)
[2019-02-18] MEDS: INSULIN -REGULAR HUMAN 50 UNIT/0.5 ML ML SQ SCH ×4 (07:30→21:00)
[2019-02-18] MEDS: LIXISENATIDE SQ SCH (08:28)
[2019-02-18] MEDS: INSULIN GLARGINE SQ SCH (08:28)
[2019-02-18] MEDS: CLOPIDOGREL 75 MG TABLET PO SCH (08:28)
[2019-02-18] MEDS: PREGABALIN 75 MG CAP PO SCH ×2 (08:29→20:53)
[2019-02-18] MEDS: METOPROLOL TAR 50 MG TAB PO SCH ×2 (08:29→21:39)
[2019-02-18] MEDS: FUROSEMIDE 40 MG TABLET PO SCH (08:29)
[2019-02-18] MEDS: Meropenem 500 MG in NA CHLORIDE 0.9% 100 ML IV SCH (08:30)
[2019-02-18] MEDS: HYDROCODONE/APAP 7.5/325 MG TAB PO PRN ×3 (08:41→21:40)
--- NOTE | 2019-02-18 16:11 | P.DS ---
Admission Date: 02/14/19 Discharge Date: 02/18/19 [facility] Discharge Condition: FAIR Reason for Admission: Direct admission for diabetic foot wound Consultations: Dr. Bond general surgery Dr. Lieberman ID - Problems (1) Diabetic foot ulcer Current Visit: No Status: Acute Qualifiers: Diabetic foot ulcer location: midfoot Diabetes mellitus type: type 2 Laterality: left Non-pressure ulcer stage: with necrosis of bone Qualified Code(s): E11.621 - Type 2 diabetes mellitus with foot ulcer; L97.424 - Non- pressure chronic ulcer of left heel and midfoot with necrosis of bone (2) Osteomyelitis due to secondary diabetes Onset Date: 05/26/16 Current Visit: No Status: Acute (3) Anemia Onset Date: 05/26/16 Current Visit: No Status: Chronic Qualifiers: Anemia type: iron deficiency Iron deficiency anemia type: unspecified iron deficiency Qualified Code(s): D50.9 - Iron deficiency anemia, unspecified (4) CAD (coronary artery disease) Onset Date: 05/26/16 Current Visit: No Status: Chronic Qualifiers: Coronary Disease-Associated Artery/Lesion type: [place] artery [place] vs. transplanted heart: [place] heart Associated angina: without angina Qualified Code(s): I25.10 - Atherosclerotic heart disease of [place] coronary artery without angina pectoris (5) HTN (hypertension) Onset Date: 05/26/16 Current Visit: No Status: Chronic Qualifiers: Hypertension type: essential hypertension (6) Hyperlipidemia Onset Date: 09/05/18 Current Visit: No Status: Chronic Qualifiers: Hyperlipidemia type: mixed hyperlipidemia Qualified Code(s): E78.2 - Mixed hyperlipidemia (7) Peripheral vascular disease due to secondary diabetes Current Visit: No Status: Chronic (8) Type 2 diabetes mellitus with foot ulcer Current Visit: No Status: Chronic Qualifiers: Diabetes mellitus detention insulin use: with local intermodal 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 Patient completed IV antibiotic therapy and has been following up with infectious disease at the wound healing Center. Patient states that the wound has been worsening. She does have a specialized boot that she is wearing. Patient was also seen at the [facility] for arterial disease however no intervention was done due to her infection. Patient still has the PICC line in place. Patient was seen by Dr. Lieberman today at the wound healing Center and was referred directly to the hospital for further evaluation and treatment. Patient reports drainage no foul odor. No fever chills. Patient's symptoms are constant moderate progressively worsening. Her previous wound cultures grew out multiple drug-resistant bacteria including Pseudomonas enterococcus. When seen on the floor the patient was awake alert oriented x3 not in any acute distress Hospital Course: Patient is a 68-year-old diabetic female with severe peripheral arterial disease who was admitted directly to the hospital from wound [facility] for diabetic foot wound. Patient was started on IV antibiotics and cultures were obtained. Cultures remained negative to date. Patient was seen by general surgeon Dr. Bond and infectious disease Dr. Lieberman. Patient underwent debridement on both of her feet. Patient has arterial ulcers on the right and diabetic ulcers on the left foot respectively. Patient did well post surgery. Patient's blood cultures remain negative however her wound cultures grew out multiple organisms in her multi-drug resistant including MRSA Pseudomonas amongst others. Patient responded well to IV antibiotics. Patient was then referred to [facility]. She will need long-term IV antibiotics wound care and hyperbaric 's. Patient was then cleared for discharge and will be transferred to [facility] after being accepted- Vital Signs/Physical Exam: Temp Pulse Resp BP Pulse Ox 98.2 F 64 16 132/69 100 02/18/19 12:02/18/19 12:02/18/19 12:02/18/19 12:02/18/19 12:00 General: Alert, In no apparent distress, Oriented x3 HEENT: Atraumatic, PERRLA, EOMI Neck: Supple, JVD not distended Respiratory: Clear to auscultation bilaterally, Normal air movement Cardiovascular: No edema, Regular rate/rhythm, Normal S1 S2, Abnormal pulses Gastrointestinal: Normal bowel sounds, Soft and benign, Non-distended, No tenderness Musculoskeletal: No tenderness Integumentary: Diabetic ulcer (left foot, bandaged), Arterial ulcer (right foot bandaged) Neurological: Normal speech, Normal tone, Normal affect Laboratory Data at Discharge: WBC 5.1 K/uL (4.3-10.9) 02/17/19 04:52 Hgb 8.0 g/dL (12.0-15.0) L 02/17/19 04:52 Hct 24.7 % (36.0-45.0) L 02/17/19 04:52 Plt Count 370 K/uL (152-406) 02/17/19 04:52 Sodium 142 mmol/L (136-145) 02/17/19 04:52 Potassium 3.9 mmol/L (3.5-5.1) 02/17/19 04:52 BUN 20 mg/dL (7-18) H 02/17/19 04:52 Creatinine 0.62 mg/dL (0.55-1.3) 02/17/19 04:52 Glucose 177 mg/dL (74-106) H 02/17/19 04:52 Total Bilirubin 0.5 mg/dL (0.2-1.0) 02/14/19 16:40 AST 19 U/L (15-37) 02/14/19 16:40 ALT 16 U/L (12-78) 02/14/19 16:40 Alkaline Phosphatase 129 U/L (45-117) H 02/14/19 16:40 Home Medications: Furosemide [Lasix*] 40 mg PO DAILY 05/11/16 Metformin HCl [Metformin ER Osmotic] 1,000 mg PO BID 05/11/16 Metoprolol Tartrate [Lopressor*] 50 mg PO BID 05/11/16 Pravastatin [Pravachol*] 40 mg PO DAILY 05/11/16 Naproxen [Naprosyn] 500 mg PO BID 11/13/17 Pregabalin [Lyrica*] 75 mg PO BID 09/04/18 Clopidogrel Bisulfate [Plavix] 1 tab PO DAILY 01/19/19 Insulin Glargine/Lixisenatide [Soliqua 100 Unit-33 Mcg/ml Pen] 26 unit SQ DAILY 01/20/19 Patient Discharge Instructions: Follow up with primary care physician in 1 week. Follow up with surgeon Dr. Bond in 7-10 days. Follow up with ID Dr. Lieberman in 2 weeks. Return to ER for worsening condition Diet: ADA Activity: Ad riccardo Time spent managing pt's care (in minutes): 38
[2019-02-18] MEDS: ATORVASTATIN 10 MG TAB PO SCH (20:53)
[2019-02-18] MEDS: CEFEPIME/SWI 2gm 2 GM/20 ML SYR IVP SCH (20:54)
--- NOTE | 2019-02-18 21:54 | PN ---
Subjective: The patient is lying in bed, had debridement done by surgical team. Denies any headache , nausea, vomiting, chest pain, abdominal pain, constipation, or diarrhea. Objective: Vital Signs: Temperature 98, pulse 64, respirations 16, blood pressure 139/69. Lungs: Basal crackles. Heart: S1, S2. Regular. Abdomen: Soft, nontender. Bowel sounds present. Extremities: Left foot wound noted and right foot wound noted. Laboratory Data: WBC 5.1, hemoglobin 8, platelets are 370. Chemistry shows sodium 142, potassium 3. 9, chloride 110, bicarb 25, BUN 20, creatinine 0.6, glucose 177. Microdata shows the patient has MRS A, Stenotrophomonas maltophilia and Pseudomonas aeruginosa. Currently, the patient is being treated with meropenem and vancomycin. Assessment And Plan: Left foot osteomyelitis with diabetic foot ulcer and right foot gangrenous lorenz ges, status post debridement, doing well. Continue antibiotic and supportive care. Total of 6 weeks . We will appeal to the insurance company for possible transferring to long-term acute care. HOLLIE/CHRIS Voice ID: [id number] Report ID: [id number]
[2019-02-19] MEDS: VANCOMYCIN 1.25 GM in NA CHLORIDE 0.9% 250 ML IV SCH (04:55)
[2019-02-19] MEDS: HYDROCODONE/APAP 7.5/325 MG TAB PO PRN ×2 (06:38→14:20)
[2019-02-19] MEDS: INSULIN -REGULAR HUMAN 50 UNIT/0.5 ML ML SQ SCH ×4 (07:30→20:38)
[2019-02-19] MEDS: INSULIN GLARGINE SQ SCH (10:15)
[2019-02-19] MEDS: LIXISENATIDE SQ SCH (10:15)
[2019-02-19] MEDS: METOPROLOL TAR 50 MG TAB PO SCH ×2 (10:19→20:36)
[2019-02-19] MEDS: FUROSEMIDE 40 MG TABLET PO SCH (10:19)
[2019-02-19] MEDS: CLOPIDOGREL 75 MG TABLET PO SCH (10:19)
[2019-02-19] MEDS: PREGABALIN 75 MG CAP PO SCH ×2 (10:19→20:36)
[2019-02-19] MEDS: CEFEPIME/SWI 2gm 2 GM/20 ML SYR IVP SCH ×2 (10:20→20:37)
[2019-02-19] MEDS: DOCUSATE NA 100 MG CAP PO SCH ×2 (11:52→20:36)
--- NOTE | 2019-02-19 18:50 | P.PN ---
Subjective Date of Service: 02/19/19 Chief Complaint: Direct admission for diabetic foot wound Subjective: No C/O voiced Patient seen and examined at bedside. No family at bedside. Chart reviewed and case discussed with nursing staff. No acute events noted overnight. Patient denies any complaints this morning. Pending placement Remains stable overnight Review of Systems 10-point ROS is otherwise unremarkable Physical Examination - Vital Signs Temperature: 97.6 F Blood Pressure: 136/61 Pulse: 66 Respirations: 18 Pulse Ox (%): 99 - Physical Exam General: Alert, In no apparent distress HEENT: Atraumatic, PERRLA, EOMI Neck: Supple, JVD not distended Respiratory: Clear to auscultation bilaterally, Normal air movement Cardiovascular: Regular rate/rhythm, Normal S1 S2 Gastrointestinal: Normal bowel sounds, No tenderness Musculoskeletal: No tenderness Integumentary: Diabetic ulcer (Bandage clean, dry and intact) Neurological: Normal speech, Normal tone, Normal affect Lymphatics: No axilla or inguinal lymphadenopathy - Studies Microbiology Data (last 24 hrs): 02/14/19 16:51 Blood - Blood Aerobic Blood Culture - Final No growth in 5 days. 02/14/19 16:51 Blood - Blood Anaerobic Blood Culture - Final No growth in 5 days. 02/14/19 16:40 Blood - Blood Aerobic Blood Culture - Final No growth in 5 days. 02/14/19 16:40 Blood - Blood Anaerobic Blood Culture - Final No growth in 5 days. 02/16/19 14:00 Wound - Right Foot Gram Stain - Final Medications List Reviewed: Yes Assessment And Plan - Plan Assessment And Plan - Current Problems (Diagnosis) (1) Diabetic foot ulcer Current Visit: No Status: Acute Qualifiers: Diabetic foot ulcer location: midfoot Diabetes mellitus type: type 2 Laterality: left Non-pressure ulcer stage: with necrosis of bone Qualified Code(s): E11.621 - Type 2 diabetes mellitus with foot ulcer; L97.424 - Non- pressure chronic ulcer of left heel and midfoot with necrosis of bone (2) Osteomyelitis due to secondary diabetes Onset Date: 05/26/16 Current Visit: No Status: Acute (3) Anemia Onset Date: 05/26/16 Current Visit: No Status: Chronic Qualifiers: Anemia type: iron deficiency Iron deficiency anemia type: unspecified iron deficiency Qualified Code(s): D50.9 - Iron deficiency anemia, unspecified (4) CAD (coronary artery disease) Onset Date: 05/26/16 Current Visit: No Status: Chronic Qualifiers: Coronary Disease-Associated Artery/Lesion type: [place] artery [place] vs. transplanted heart: [place] heart Associated angina: without angina Qualified Code(s): I25.10 - Atherosclerotic heart disease of [place] coronary artery without angina pectoris (5) HTN (hypertension) Onset Date: 05/26/16 Current Visit: No Status: Chronic Qualifiers: Hypertension type: essential hypertension (6) Hyperlipidemia Onset Date: 09/05/18 Current Visit: No Status: Chronic Qualifiers: Hyperlipidemia type: mixed hyperlipidemia Qualified Code(s): E78.2 - Mixed hyperlipidemia (7) Peripheral vascular disease due to secondary diabetes Current Visit: No Status: Chronic (8) Type 2 diabetes mellitus with foot ulcer Current Visit: No Status: Chronic Qualifiers: Diabetes mellitus intermediate insulin use: with intermediate use Qualified Code( s): E11.621 - Type 2 diabetes mellitus with foot ulcer; L97.509 - Non-pressure chronic ulcer of other part of unspecified foot with unspecified severity; Z79.4 - nursing home (current) use of insulin - Plan Patient tolerated surgery well Continue broad-spectrum IV antibiotics due to recent multi-drug resistant bacteria from wound cultures. Repeat cultures so far growing on MRSA, Strentrophoomonas. Continue Levaquin. Sliding scale insulin. Monitor Accu-Cheks Follow up on final blood cultures and wound cultures Pain control Infectious Disease recommends LTAC placement for wound care and IV antibiotics and hyperbarics. Pending acceptance/in insurance approval. Jun once accepted
[2019-02-19 20:06] LABS: Absolute Lymphocytes (CBC) 1.8 K/uL (0.7-4.9); Absolute Monocytes 0.5 K/uL (0.1-1.3); Absolute Neutrophil 2.9 K/uL (1.8-8.0); Eosinophils % 11.5 % (0-4.4); Hematocrit 25.7 % (36.0-45.0); Lymphocytes % 30.3 % (15.3-44.8); Monocytes % 8.1 % (3.3-12.3); RBC Red Blood Cell Count 3.35 M/uL (3.86-4.86)
[2019-02-19 20:34] LABS: Potassium 4.6 mmol/L (3.5-5.1)
[2019-02-19] MEDS: ATORVASTATIN 10 MG TAB PO SCH (20:36)
[2019-02-20] MEDS: HYDROCODONE/APAP 7.5/325 MG TAB PO PRN ×2 (00:22→12:36)
[2019-02-20] MEDS: VANCOMYCIN 1.25 GM in NA CHLORIDE 0.9% 250 ML IV SCH (05:35)
[2019-02-20] MEDS: INSULIN -REGULAR HUMAN 50 UNIT/0.5 ML ML SQ SCH ×4 (07:30→21:00)
[2019-02-20] MEDS: DOCUSATE NA 100 MG CAP PO SCH ×2 (09:00→20:08)
[2019-02-20] MEDS: METOPROLOL TAR 50 MG TAB PO SCH ×2 (09:28→20:09)
[2019-02-20] MEDS: CLOPIDOGREL 75 MG TABLET PO SCH (09:28)
[2019-02-20] MEDS: PREGABALIN 75 MG CAP PO SCH ×2 (09:28→20:08)
[2019-02-20] MEDS: FUROSEMIDE 40 MG TABLET PO SCH (09:29)
[2019-02-20] MEDS: LIXISENATIDE SQ SCH (09:30)
[2019-02-20] MEDS: INSULIN GLARGINE SQ SCH (09:30)
[2019-02-20] MEDS: CEFEPIME/SWI 2gm 2 GM/20 ML SYR IVP SCH ×2 (09:30→20:08)
--- NOTE | 2019-02-20 14:22 | P.PN ---
Subjective Date of Service: 02/20/19 Chief Complaint: Direct admission for diabetic foot wound Subjective: No new changes, No C/O voiced Patient seen and examined at bedside. No family at bedside. Chart reviewed and case discussed with nursing staff. No acute events noted overnight. Patient denies any complaints this morning. Pending placement Remains stable overnight Review of Systems 10-point ROS is otherwise unremarkable Physical Examination - Vital Signs Temperature: 96.4 F Blood Pressure: 127/76 Pulse: 64 Respirations: 18 Pulse Ox (%): 99 - Physical Exam General: Alert, In no apparent distress, Oriented x3 HEENT: Atraumatic, PERRLA, EOMI Neck: Supple, JVD not distended Respiratory: Clear to auscultation bilaterally, Normal air movement Cardiovascular: Regular rate/rhythm, Normal S1 S2 Gastrointestinal: Normal bowel sounds, No tenderness Musculoskeletal: No tenderness Integumentary: No rashes, Other (Bandage clean, dry and intact) Lymphatics: No axilla or inguinal lymphadenopathy - Studies Laboratory Data (last 24 hrs) 02/19/19 19:40: Sodium 140, Potassium 4.6, BUN 24 H, Creatinine 0.83, Glucose 149 H 02/19/19 19:40: WBC 5.9 D, Hgb 8.2 L, Hct 25.7 L, Plt Count 334 Microbiology Data (last 24 hrs): 02/16/19 14:00 Wound - Right Foot Gram Stain - Final 02/16/19 14:00 Wound - Right Foot Anaerobic Culture - Final NO ANAEROBES GROWN. 02/16/19 14:00 Wound - Right Foot Gram Stain - Final 02/16/19 14:00 Wound - Right Foot Culture & Sensitivity - Final Meth Resistant Staph Aureus 02/14/19 16:51 Blood - Blood Aerobic Blood Culture - Final No growth in 5 days. 02/14/19 16:51 Blood - Blood Anaerobic Blood Culture - Final No growth in 5 days. 02/14/19 16:40 Blood - Blood Aerobic Blood Culture - Final No growth in 5 days. 02/14/19 16:40 Blood - Blood Anaerobic Blood Culture - Final No growth in 5 days. 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 Onset Date: 05/26/16 Current Visit: No Status: Acute (3) MRSA (methicillin resistant staph aureus) culture positive Current Visit: Yes Status: Acute (4) Hyperlipidemia Onset Date: 09/05/18 Current Visit: No Status: Chronic Qualifiers: Hyperlipidemia type: mixed hyperlipidemia Qualified Code(s): E78.2 - Mixed hyperlipidemia (5) HTN (hypertension) Onset Date: 05/26/16 Current Visit: No Status: Chronic Qualifiers: Hypertension type: essential hypertension (6) Anemia Onset Date: 05/26/16 Current Visit: No Status: Chronic Qualifiers: Anemia type: iron deficiency Iron deficiency anemia type: unspecified iron deficiency Qualified Code(s): D50.9 - Iron deficiency anemia, unspecified (7) Type 2 diabetes mellitus with foot ulcer Current Visit: No Status: Chronic Qualifiers: 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 transplanted heart: [place] heart Associated angina: without angina Qualified Code(s): I25.10 - Atherosclerotic heart disease of [place] coronary artery without angina pectoris - Plan Patient tolerated surgery well Continue broad-spectrum IV antibiotics due to recent multi-drug resistant bacteria from wound cultures. Repeat cultures so far growing MRSA, Strentrophoomonas. Continue Levaquin. Sliding scale insulin. Monitor Accu-Cheks Follow up on final blood cultures and wound cultures Pain control Infectious Disease recommends LTAC placement for wound care and IV antibiotics and hyperbarics. Pending acceptance/in insurance approval. Dc once accepted
[2019-02-20] MEDS ORDERED: BISACODYL E.C. 5 MG TAB PO ONE (20:00)
[2019-02-20] MEDS: ATORVASTATIN 10 MG TAB PO SCH (20:08)
[2019-02-20] MEDS: ACETAMINOPHEN 500 MG TAB PO PRN (20:54)
[2019-02-21] MEDS: VANCOMYCIN 1.25 GM in NA CHLORIDE 0.9% 250 ML IV SCH (05:32)
[2019-02-21] MEDS: INSULIN -REGULAR HUMAN 50 UNIT/0.5 ML ML SQ SCH ×4 (07:30→20:13)
[2019-02-21] MEDS: CEFEPIME/SWI 2gm 2 GM/20 ML SYR IVP SCH ×2 (08:32→20:10)
[2019-02-21] MEDS: DOCUSATE NA 100 MG CAP PO SCH ×2 (08:33→20:10)
[2019-02-21] MEDS: CLOPIDOGREL 75 MG TABLET PO SCH (08:33)
[2019-02-21] MEDS: METOPROLOL TAR 50 MG TAB PO SCH ×2 (08:33→20:10)
[2019-02-21] MEDS: PREGABALIN 75 MG CAP PO SCH ×2 (08:33→20:10)
[2019-02-21] MEDS: FUROSEMIDE 40 MG TABLET PO SCH (08:34)
[2019-02-21] MEDS: LIXISENATIDE SQ SCH (08:35)
[2019-02-21] MEDS: INSULIN GLARGINE SQ SCH (08:35)
--- NOTE | 2019-02-21 15:39 | P.PN ---
Subjective Date of Service: 02/21/19 Chief Complaint: Direct admission for diabetic foot wound Subjective: No C/O voiced, Improving Patient seen and examined at bedside. No family at bedside. Chart reviewed and case discussed with nursing staff. No acute events noted overnight. Patient denies any complaints this morning. Pending placement Remains stable overnight Review of Systems 10-point ROS is otherwise unremarkable Physical Examination - Vital Signs Temperature: 98.0 F Blood Pressure: 94/65 Pulse: 70 Respirations: 16 Pulse Ox (%): 100 - Physical Exam General: Alert, In no apparent distress, Oriented x3 HEENT: Atraumatic, PERRLA, EOMI Neck: Supple, JVD not distended Respiratory: Clear to auscultation bilaterally, Normal air movement Cardiovascular: Regular rate/rhythm, Normal S1 S2 Gastrointestinal: Normal bowel sounds, No tenderness Musculoskeletal: No tenderness Integumentary: No rashes, Other (Bandage clean, dry and intact. ) Neurological: Normal speech, Normal tone, Normal affect Lymphatics: No axilla or inguinal lymphadenopathy - Studies Microbiology Data (last 24 hrs): 02/16/19 14:00 Wound - Right Foot Gram Stain - Final 02/16/19 14:00 Wound - Right Foot Anaerobic Culture - Final NO ANAEROBES GROWN. 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 Onset Date: 05/26/16 Current Visit: No Status: Acute (3) MRSA (methicillin resistant staph aureus) culture positive Current Visit: Yes Status: Acute (4) Hyperlipidemia Onset Date: 09/05/18 Current Visit: No Status: Chronic Qualifiers: Hyperlipidemia type: mixed hyperlipidemia Qualified Code(s): E78.2 - Mixed hyperlipidemia (5) HTN (hypertension) Onset Date: 05/26/16 Current Visit: No Status: Chronic Qualifiers: Hypertension type: essential hypertension (6) Anemia Onset Date: 05/26/16 Current Visit: No Status: Chronic Qualifiers: Anemia type: iron deficiency Iron deficiency anemia type: unspecified iron deficiency Qualified Code(s): D50.9 - Iron deficiency anemia, unspecified (7) Type 2 diabetes mellitus with foot ulcer Current Visit: No Status: Chronic 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 transplanted heart: [place] heart Associated angina: without angina Qualified Code(s): I25.10 - Atherosclerotic heart disease of [place] coronary artery without angina pectoris - Plan Patient tolerated surgery well Continue broad-spectrum IV antibiotics due to recent multi-drug resistant bacteria from wound cultures. Repeat cultures so far growing MRSA, Strentrophoomonas. Continue Levaquin. Sliding scale insulin. Monitor Accu-Cheks Follow up on final blood cultures and wound cultures Pain control Infectious Disease recommends LTAC placement for wound care and IV antibiotics and hyperbarics. Pending acceptance/in insurance approval. Dc once accepted. Called insurance Rep, left for appeals process. [place] also on board.
[2019-02-21] MEDS: ATORVASTATIN 10 MG TAB PO SCH (20:10)
[2019-02-21 20:14] VITALS: BP 130/67
[2019-02-21] MEDS: ACETAMINOPHEN 500 MG TAB PO PRN (20:14)
[2019-02-21 21:50] VITALS: O2SAT 99
[2019-02-21 22:27] VITALS: TEMP 97.3
== END 2019-02-21 23:10 | DRG 464 ==
LOC: 4TH 15:25
PROVIDERS: ADMIT Family Medicine; ATTEND Family Medicine
PROC: 0JBQ0ZZ Excision of Right Foot Subcutaneous Tissue and Fascia, Open Approach (ICD-10-PCS; 2019-02-16)
PROC: 0LBW0ZZ Excision of Left Foot Tendon, Open Approach (ICD-10-PCS; 2019-02-16)
PROC: 0KBW0ZZ Excision of Left Foot Muscle, Open Approach (ICD-10-PCS; principal; 2019-02-16 11:15)
DX: M86.172 Other acute osteomyelitis, left ankle and foot (principal); L97.424 Non-pressure chronic ulcer of left heel and midfoot with necrosis of bone; E11.621 Type 2 diabetes mellitus with foot ulcer; E11.69 Type 2 diabetes mellitus with other specified complication; B95.62 Methicillin resistant Staphylococcus aureus infection as the cause of diseases classified elsewhere; B96.5 Pseudomonas (aeruginosa) (mallei) (pseudomallei) as the cause of diseases classified elsewhere; I73.9 Peripheral vascular disease, unspecified; E78.5 Hyperlipidemia, unspecified; I25.10 Atherosclerotic heart disease of native coronary artery without angina pectoris; D50.9 Iron deficiency anemia, unspecified; I11.0 Hypertensive heart disease with heart failure; I50.9 Heart failure, unspecified; Z79.4 Long term (current) use of insulin; Z95.1 Presence of aortocoronary bypass graft
CPT/HCPCS: 36415; 71045; 80048; 80053; 80202; 81003; 82962; 85025; 86140; 87040; 87070; 87075; 87077; 87186; 87205; 88304; 93005; 94760; J0692; J2250; J2704; J3010; J7030

== ENCOUNTER 2019-06-04 15:23 | Inpatient (IN) | payer OTHER ==
--- OUTSIDE RECORDS SUMMARY | 2019-06-04 15:26 | XMS REPORT ---
[...] Dosage System Date Date BD Pen Needle [facility] 74469889442 32G X 4 MM SQ May 11, Active as directed [place] U/F once a day 2017 Results No Known Results Summary Purpose eClinicalWorks Submission
--- OUTSIDE RECORDS SUMMARY | 2019-06-04 15:26 | XMS REPORT ---
[...] Date Status Dosage System Date One Touch [facility] 151015284411 1 In Vitro Jul 09December Active as directed Ultra Test twice daily 2017 Strips Results No Known Results Summary Purpose eClinicalWorks Submission
--- OUTSIDE RECORDS SUMMARY | 2019-06-04 15:26 | XMS REPORT ---
[...] End Status Dosage System Date Date Santyl [facility] 40473909881 250 UNIT/GM Apr 24, May 08, Active 1 application Externally Once 2017 2017 to affected a day area Lyrica ND 28665448984 75 MG Orally Apr 23, Active 1 capsule Twice a day 2017 Metformin HCl ND 00156842062 1000 MG Orally Active 1 tablet with Twice a day a meal Victoza [facility] 17591265252 18 MG/3ML March 19Sep 15, Active 1.2 mg Subcutaneous 2017 2017 daily Pravastatin ND 08479352786 40 MG Orally Active 1 tablet Sodium Once a day Potassium ND 60105221387 20 MEQ Orally Active 1 tablet with Chloride Jackeline Once a day food ER Metoprolol ND 36780322564 50 MG Orally Active 1 tablet with Tartrate Twice a day food Furosemide ND 93720850161 40 MG Orally Active 1 tablet Once a day Naproxen ND 09922058368 500 MG Orally Active 1 tablet Twice a day Clopidogrel ND 15275293400 75 MG Orally Active 1 tablet Bisulfate Once a day Results No Known Results Summary Purpose eClinicalWorks Submission
--- OUTSIDE RECORDS SUMMARY | 2019-06-04 15:26 | XMS REPORT ---
[...] End Status Dosage System Date Date Glimepiride [facility] 40154057227 4 MG Orally March Inactive 1 tablet twice a day 2017 breakfast or the first main meal of the day Augmentin [facility] 41458423838 250-62.5 MG/5ML March Active 1 tablet Orally QD x2wks 2017 Bactrim DS [facility] 93837178007 800-160 MG March Active 1 tablet Orally Twice a x2wks 2017 Pravastatin [facility] 96846366254 40 MG Orally Active 1 tablet Sodium Once a day Metformin HCl ND 44650750231 1000 MG Orally Active 1 tablet Twice a day with a meal Clopidogrel [facility] 48682136652 75 MG Orally Active 1 tablet Bisulfate Once a day Potassium ND 15839770616 20 MEQ Orally Active 1 tablet Chloride Jackeline Once a day with food ER Metoprolol [facility] 85551839850 50 MG Orally Active 1 tablet Tartrate Twice a day with food Furosemide [facility] 16497123541 40 MG Orally Active 1 tablet Once a day Cleocin [facility] 21635360706 150 MG Orally March Active 2 capsules Once a day , x2wks 2017 Victoza [facility] 85563399526 18 MG/3ML March 19Sep 15, Active 1.2 mg Subcutaneous 2017 2017 daily Naproxen [facility] 98695276078 500 MG Orally Active 1 tablet Twice a day Results No Known Results Summary Purpose eClinicalWorks Submission
--- OUTSIDE RECORDS SUMMARY | 2019-06-04 15:26 | XMS REPORT ---
[...] Status Dosage System Date One Touch [facility] 771751534649 1 In Vitro Jul 09December Active as directed Ultra Test twice daily 2017 Strips Victoza [facility] 98831204298 18 MG/3ML Active 1.2 mg Subcutaneous daily Metformin HCl [facility] 74564006434 1000 MG Orally Active 1 tablet Twice a day with a meal Metoprolol [facility] 78913579486 50 MG Orally Active 1 tablet Tartrate Twice a day with food Clopidogrel ND 96202451228 75 MG Orally Active 1 tablet Bisulfate Once a day Naproxen ND 54944262423 500 MG Orally Active 1 tablet Twice a day Lyrica ND 40017170128 75 MG Orally Apr 23, Active 1 capsule Twice a day 2017 Potassium [facility] 64198396341 20 MEQ Orally Active 1 tablet Chloride Jackeline Once a day with food ER Pravastatin [facility] 66535391817 40 MG Orally Active 1 tablet Sodium Once a day Furosemide [facility] 36500612023 40 MG Orally Active 1 tablet Once a day One Touch ND 0 Lancet subq Jul 09, Active 1 lancet Delica Lancets twice daily 2017 BD Pen Needle [facility] 10625761044 32G X 4 MM SQ May 11, Active as directed [place] U/F once a day 2017 Results No Known Results Summary Purpose eClinicalWorks Submission
--- OUTSIDE RECORDS SUMMARY | 2019-06-04 15:26 | XMS REPORT ---
[...] Start End Date Status Dosage Date Naproxen [facility] 79503242142 500 MG Orally Active 1 tablet Twice a day Lyrica [facility] 12061660267 75 MG Orally Apr 23, Active 1 capsule Twice a day 2017 Victoza [facility] 26421192140 18 MG/3ML March 19, Sep 15, Active 1.2 mg Subcutaneous 2017 2018 daily Results No Known Results Summary Purpose eClinicalWorks Submission
--- OUTSIDE RECORDS SUMMARY | 2019-06-04 15:26 | XMS REPORT ---
[...] End Status Dosage System Date Date Metoprolol [facility] 38654324637 50 MG Orally Active 1 tablet Tartrate Twice a day with food Furosemide ND 34563297737 40 MG Orally Active 1 tablet Once a day Metformin HCl ND 40952402854 1000 MG Orally Active 1 tablet Twice a day with a meal Clopidogrel ND 82615533457 75 MG Orally Active 1 tablet Bisulfate Once a day Pravastatin ND 70995833143 40 MG Orally Active 1 tablet Sodium Once a day Potassium [facility] 52379148288 20 MEQ Orally Active 1 tablet Chloride Jackeline Once a day with food ER BD Pen Needle [facility] 92075265542 32G X 4 MM SQ May 11, Active as directed [place] U/F once a day 2017 Naproxen ND 50191002372 500 MG Orally Active 1 tablet Twice a day Victoza ND 01153669575 18 MG/3ML Active 1.2 mg Subcutaneous daily Lyrica ND 89196341748 75 MG Orally Apr 23, Active 1 capsule Twice a day 2017 Results No Known Results Summary Purpose eClinicalWorks Submission
--- OUTSIDE RECORDS SUMMARY | 2019-06-04 15:26 | XMS REPORT ---
:1950 Author Organization [facility] Address [address] [place] [address] [address] [place] [address] Care Team Providers Name Role Phone Unavailable Unavailable Unavailable Problems This patient has no known problems. Allergies, Adverse Reactions, Alerts This patient has no known allergies or adverse reactions. Medications This patient has no known medications.
--- OUTSIDE RECORDS SUMMARY | 2019-06-04 15:26 | XMS REPORT ---
[...] End Status Dosage System Date Date Naproxen [facility] 63792048740 500 MG Orally Active 1 tablet Twice a day Clopidogrel [facility] 52009922218 75 MG Orally Active 1 tablet Bisulfate Once a day Bactrim DS [facility] 48487250358 800-160 MG Active 1 tablet Orally Twice a day x2wks Augmentin [facility] 24891250401 250-62.5 MG/5ML Active 1 tablet Orally QD x2wks Pravastatin ND 72212146713 40 MG Orally Active 1 tablet Sodium Once a day Lyrica ND 93141322453 75 MG Orally Inactive 1 capsule Once a day Glimepiride ND 72844979187 4 MG Orally Active 1 tablet twice a day with breakfast or the first main meal of the day Cleocin ND 64544679500 150 MG Orally Active 2 capsules Once a day x2wks Furosemide [facility] 49928369825 40 MG Orally Active 1 tablet Once a day Potassium [facility] 69348071254 20 MEQ Orally Active 1 tablet Chloride Jackeline Once a day with food ER Metoprolol ND 72830410918 50 MG Orally Active 1 tablet Tartrate Twice a day with food Metformin HCl [facility] 11703151422 1000 MG Orally Active 1 tablet Twice a day with a meal Results No Known Results Summary Purpose eClinicalWorks Submission
--- OUTSIDE RECORDS SUMMARY | 2019-06-04 15:26 | XMS REPORT ---
[...] Dosage System Date Date BD Pen Needle [facility] 05058290627 32G X 4 MM SQ May 11, Active as directed [place] U/F once a day 2017 Results No Known Results Summary Purpose eClinicalWorks Submission
--- OUTSIDE RECORDS SUMMARY | 2019-06-04 15:27 | XMS REPORT ---
[...] Date Status Dosage System Date Clopidogrel ND 08094889378 75 MG Orally Active 1 tablet Bisulfate Once a day Furosemide ND 66361502247 40 MG Orally Active 1 tablet Once a day Lyrica ND 13281414421 75 MG Orally Apr 23, Active 1 capsule Twice a day 2017 Potassium ND 13153841143 20 MEQ Orally Active 1 tablet Chloride Jackeline Once a day with food ER Pravastatin ND 32784100290 40 MG Orally Active 1 tablet Sodium Once a day Metoprolol ND 44110605632 50 MG Orally Active 1 tablet Tartrate Twice a day with food Metformin HCl ND 32760931126 1000 MG Orally Active 1 tablet Twice a day with a meal One Touch [facility] 174530295054 1 In Vitro Jul 09December Active as directed Ultra Test twice daily 2018 2018 Strips One Touch [facility] 0 Lancet subq Jul 09, Active 1 lancet Delica Lancets twice daily 2017 Results No Known Results Summary Purpose eClinicalWorks Submission
--- OUTSIDE RECORDS SUMMARY | 2019-06-04 15:27 | XMS REPORT | Summary of Care ---
:1950 Author Organization [facility] - Health Address [address] [place] [address] Care Team Providers Name Role Phone Pcp, Patient Does Not Have A Primary Care Provider Encounter Details Date Type Department Care Team Description 05/14/2019 Orders Only [facility] Doctor Unassigned, No [address] [facility] Name [place] [phone] [facility] [place] [id number] Allergies Active Allergy Reactions Severity Noted Date Comments Levofloxacin Nausea and/or Vomiting 02/03/2019 documented as of this encounter (statuses as of 05/14/2019) Medications Medication Sig Dispensed Refills Start Date End Date Status furosemide (LASIX) 40 Take 40 mg by 0 Active mg tablet mouth daily. pregabalin (LYRICA) 75 Take 75 mg by 0 Active mg capsule mouth 3 (three) times daily. metFORMIN 1,000 mg Take 1,000 mg by 0 Active tablet mouth 2 (two) times daily with meals. metoprolol succinate 50 Take 50 mg by 0 Active mg CSpX mouth 2 (two) times daily. pravastatin 40 mg Take 40 mg by 0 Active tablet mouth at bedtime. Furosemide 40 mg/4 mL Take 40 mg by 0 Active Soln mouth once now. naproxen 500 mg tablet Take 500 mg by 0 Active mouth 2 (two) times daily with meals. insulin inject 30 Units 30 Syringe 1 01/02/2019 Active glargine-lixisenatide under the skin (SOLIQUA 100/33) 100 daily. unit-33 mcg/mL InPnIndications: Type 2 diabetes mellitus with cardiac complication blood sugar diagnostic Use as directed. 200 Strip 1 01/02/2019 Active ([address] ULTRA BLUE E11.59- Twice TEST STRIP) daily stripIndications: Type 2 diabetes mellitus with cardiac complication lancets (ONE TOUCH Use as directed. 200 Each 1 01/02/2019 Active DELICA) 33 gauge E11.59- Twice MiscIndications: Type 2 daily diabetes mellitus with cardiac complication documented as of this encounter (statuses as of 05/14/2019) Active Problems Problem Noted Date Encounter for routine gynecological examination 02/04/2013 Overview: 02/04/2013- negative colorectal cards x 3. ICD10 Diagnosis Term Eyeletter Utility Overweight 01/25/2013 Overview: ICD10 Diagnosis Term Eyeletter Utility documented as of this encounter (statuses as of 05/14/2019) Immunizations Name Administration Dates Next Due Td 09/18/2007 documented as of this encounter Social History Tobacco Use Types Packs/Day Years Used Date Never Smoker Alcohol Use Drinks/Week oz/Week Comments No Sex Assigned at Date Recorded Not on file Job Start Date Occupation Industry Not on file Not on file Not on file Travel History Travel Start Travel End No recent travel history available. documented as of this encounter Last Filed Vital Signs Not on filedocumented in this encounter Plan of Treatment Date Type Specialty Care Team Description 05/14/2019 Office Visit Endocrinology Diabetes & Velázquez, MD [facility] [address], [place] [id number] Health Maintenance Due Date Last Done Comments HEPATITIS C (HCV) SCREEN 1950 EYE EXAM 1962 FOOT EXAM 1970 COLONOSCOPY 2002 Zoster Recombinant Vaccine 2002 (SHINGRIX) (1 of 2) HgA1C 06/09/2005 12/07/2004 DTaP,Tdap,and Td Vaccines (1 - 09/19/2007 09/18/2007 Tdap) MAMMOGRAM 03/11/2014 03/11/2013 Medicare Wellness Visit 2017 Osteoporosis Screening 2017 PNEUMOCOCCAL VACCINES 65+ (1 of 2 2017 - PCV13) INFLUENZA VACCINE (#1) 2019 LDL-C 01/03/2020 01/02/2019, 01/04/2005, 10/19/2004 URINE MICROALBUMIN 01/03/2020 01/02/2019, 01/04/2005 CREATININE (SERUM) 02/04/2020 02/03/2019, 01/02/2019, 01/08/2016, Additional history exists documented as of this encounter Procedures Procedure Name Priority Date/Time Associated Diagnosis Comments NO SHOW OR MISSED Routine 05/14/2019 2:48 PM APPOINTMENT POLICY CDT ACKNOWLEDGEMENT documented in this encounter Results Not on filedocumented in this encounter Insurance Payer Benefit Plan / Subscriber ID Effective Phone Address Type Group Dates [facility] [id number] 2017-Pres Medicare HEALTHCARE - HEALTHCARE ent Adv HMO MANAGED DUAL COMPLETE MEDICARE O [facility] MEDICAID OF xxxxxxxxx 2018-Pres [phone] Medicaid [place] ent [id number] [place] [address] documented as of this encounter
--- OUTSIDE RECORDS SUMMARY | 2019-06-04 15:27 | XMS REPORT | Summary of Care ---
:1950 Author Organization [facility] Address [address] [place] [address] Care Team Providers Name Role Phone Pcp, Patient Does Not Have A Primary Care Provider Reason for Visit Reason Comments Follow-up Diabetes Mellitus II Encounter Details Date Type Department Care Team Description 05/14/2019 Office Visit [facility] Justina Velázquez MD Type 2 diabetes mellitus with cardiac complication (Primary Dx); Endocrinology- [address] [place] [address] Dyslipidemia; [facility] Essential hypertension Professional Office [place] [id number] [place] [address] [address] [place] [address] Allergies Active Allergy Reactions Severity Noted Date Comments Levofloxacin Nausea and/or Vomiting 02/03/2019 documented as of this encounter (statuses as of 05/20/2019) Medications Medication Sig Dispensed Refills Start Date [...] as directed. 200 Strip 1 01/02/2019 Active (ONETOUCH ULTRA BLUE E11.59- Twice TEST STRIP) daily stripIndications: Type 2 diabetes mellitus with cardiac complication lancets (ONE TOUCH Use as directed. 200 Each 1 01/02/2019 Active DELICA) 33 gauge E11.59- Twice MiscIndications: Type 2 daily diabetes mellitus with cardiac complication documented as of this encounter (statuses as of 05/20/2019) Active Problems Problem Noted Date Encounter for routine gynecological examination 02/04/2013 Overview: 02/04/2013- negative colorectal cards x 3. ICD10 Diagnosis Term Luggage Maker Utility Overweight 01/25/2013 Overview: ICD10 Diagnosis Term Luggage Maker Utility documented as of this encounter (statuses as of 05/20/2019) Immunizations Name Administration Dates Next Due Td [...] of this encounter Last Filed Vital Signs Vital Sign Reading Time Taken Comments Blood Pressure 128/77 05/14/2019 3:19 PM CDT Pulse 89 05/14/2019 3:19 PM CDT Temperature - - Respiratory Rate 16 05/14/2019 3:19 PM CDT Oxygen Saturation - - Inhaled Oxygen Concentration - - Weight 64.4 kg (142 lb) 05/14/2019 3:19 PM CDT Height 162.6 cm (5' 4") 05/14/2019 3:19 PM CDT Body Mass Index 24.37 05/14/2019 3:19 PM CDT documented in this encounter Patient Instructions Patient Justina Fitch MD - 05/14/2019 3:00 PM CDTDetenga Victoza And Humalog lucinda vez que inicie Soliqua (bazan insulina combinada y Victoza en lucinda jeringa) 30 unidades lucinda vez al da Stop victoza and Humalog; Restart Soliqua 30 units daily Continuar Metformina 1000 mg dos veces al da. Continue Metformin 1000mg twice a day Restart to check sugar twice a day documented in this encounter Progress Notes Justina Velázquez MD - 05/14/2019 3:00 PM CDT chief complaint: follow up for Type 2 diabetes mellitus HPI Patient is a 69 year old /White female who is here today for Diabetes Mellitus Type 2. Patient's diabetes is complicated by atherogenic diet, hyperlipidemia, hypertension , foor ulcer macrovascular complications: Coronary Artery Disease and S/P Vessel Coronary Artery Bypass Graft , obesity and retinopathy: macular edema and proliferative. Type 2 diabetes mellitus: Diagnosed in 1983. Patient was referred here in 12/2018 with A1C worsened to13.9. Patient was advised to switch victozato Soliqua. Patient has tried Soliqua for a month with improvement in glucose. However, she did notcontinue due to admission to rehab. Patient was restarted on victoza with PRN dose Humalog . She is currently taking Diabetes regimen:Metformin 1000 mg bid, Victoza 1.2 mg daily and ?Humalog Glucose readings: Did not bring. States sugar at 200s She is semi compliant with daily also unable to walks daily Dyslipidemia: Takes Pravastatin 40 mg HTn: takes Metoprolol, Lasix with potassium Neuropathy: takes Lyrica CAD s/p CABG in 2005. Sees multi skilled operator in [facility] DIABETIC HEALTH MAINTENANCE Last Ophthalmology visit was 10/2018, Stable retinopathy. Patient on TRACIE/ARB therapy - No Patient on ASA therapy - No.( naproxen for shoulder pain) Patient on Statin/Fibrate therapy - Yes. Patient instructed about daily feet exams, last sensation exam was Declined today. Sees rn school regularly . Patient has received Nutrition/Diet/Diabetes Education on Yes. Patient's Medications START taking these medications No medications on file CONTINUE taking these medications which have NOT CHANGED BLOOD SUGAR DIAGNOSTIC (IcineticUCH ULTRA BLUE TEST STRIP) STRIP Use as directed. E11.59- Twice daily FUROSEMIDE (LASIX) 40 MG TABLET Take 40 mg by mouth daily. FUROSEMIDE 40 MG/4 ML SOLN Take 40 mg by mouth once now. INSULIN GLARGINE-LIXISENATIDE (SOLIQUA 100/33) 100 UNIT-33 MCG/ML INPN inject 30 Units under theskin daily. LANCETS (ONE TOUCH DELICA) 33 GAUGE MISC Use as directed. E11.59- Twice daily METFORMIN 1,000 MG TABLET Take 1,000 mg by mouth 2 (two) times daily with meals. METOPROLOL SUCCINATE 50 MG CSPX Take 50 mg by mouth 2 (two) times daily. NAPROXEN 500 MG TABLET Take 500 mg by mouth 2 (two) times daily with meals. PRAVASTATIN 40 MG TABLET Take 40 mg by mouth at bedtime. PREGABALIN (LYRICA) 75 MG CAPSULE Take 75 mg by mouth 3 (three) times daily. START taking Modified Medications as Prescribed No medications on file STOP taking these medications No medications on file HISTORY Past Medical History: Diagnosis Date CAD (coronary artery disease) DM (diabetes mellitus) Heart attack 2004 HLD (hyperlipidemia) Hypertension Past Surgical History: Procedure Laterality Date SD ANESTH,OPEN HEART SURGERY+PUMP 2004 Family History Problem Relation Age of Onset Coronary Heart Disease Mother Social History Socioeconomic History Marital status: Spouse name: Not on file Number of children: Not on file Years of education: Not on file Highest education level: Not on file Occupational History Not on file Social Needs Financial resource strain: Not on file Food insecurity: Worry: Not on file Inability: Not on file Transportation needs: Medical: Not on file Non-medical: Not on file Tobacco Use Smoking status: Never Smoker Substance and Sexual Activity Alcohol use: No Drug use: No Sexual activity: Yes Partners: Male Lifestyle Physical activity: Days per week: Not on file Minutes per session: Not on file Stress: Not on file Relationships Social connections: Talks on phone: Not on file Gets together: Not on file Attends hinduism service: Not on file Active member of club or organization: Not on file Attends meetings of clubs or organizations: Not on file Relationship status: Not on file Intimate partner violence: Fear of current or ex partner: Not on file Emotionally abused: Not on file Physically abused: Not on file Forced sexual activity: Not on file Other Topics Concern Not on file Social History Narrative Not on file REVIEW OF SYSTEMS Constitutional: + weight gain Eyes: denies blurry vision, denies decreased vision and denies diplopia. Nose/Sinuses: denies congestion and denies rhinorrhea . Mouth/Throat: denies dysphagia and denies hoarseness. Cardiovascular: denies chest pain and denies palpitations. Respiratory: denies chest congestion and denies shortness of breath. Gastrointestinal: denies abdominal pain, denies constipation, denies diarrhea and denies nausea. Genitourinary: denies dysuria. Musculoskeletal: Denies myalgias Skin:+ left foot ulcer, stable managed by podiatry Neuro: denies headache and denies tremor. Endocrine: Denies intolerance to cold or heat PHYSICAL EXAM POCT GLU (MG/DL) Date Value 09/23/2010 202 (H) CREATININE Date Value 02/03/2019 0.71 mg/dL 09/23/2010 0.85 MG/DL CHOL Date Value 01/02/2019 154 mg/dL 01/04/2005 152 MG/DL HDL CHOL (MG/DL) Date Value 01/04/2005 33 (L) HDL (mg/dL) Date Value 01/02/2019 38 (L) LDL CHOL Date Value 01/02/2019 83 mg/dL 01/04/2005 87 MG/DL TRIG Date Value 01/02/2019 163 mg/dL 01/04/2005 162 MG/DL MICROAL/CR Date Value 01/02/2019 1,361 ug/mmol creatinine 01/04/2005 1048 POCT HBA1C (%) Date Value 05/14/2019 8.7 HGB A1C (%) Date Value 12/07/2004 6.8 (H) BP 128/77 (BP Location: Left arm, Patient Position: Sitting, BP CUFF SIZE: Adult Large) | Pulse 89| Resp 16 | Ht 5' 4" (1.626 m) | Wt 142 lb (64.4 kg) | LMP 09/18/2002 | BMI 24.37 kg/m General: alert, oriented times three, no apparent distress, appearing age appropriate. Skin: skin color and turgor are normal Head: normocephalic, no masses, lesions, tenderness or abnormalities. Eyes: anicteric sclera, pupils are equally round and reactive to light. Neck: +acanthosis nigricans Thyroid: normal size and consistency to palaption Lungs: good diaphragmatic excursion, lungs clear to auscultation bilaterally. Heart: regular rate and rhythm, no murmurs, gallops or rubs. Abdomen: abdomen soft, non-tender, normal active bowel sounds, Neuro: unremarkable without focal findings. Extremities/Musculoskeletal: no cyanosis, trace edema . Feet: + boots bilateral Outside lab 04/24/2019 EGFR=76 H/H=9.9/30.7 ASSESSMENT 1. Type 2 diabetes mellitus with cardiac complication -A1C (target=6-7%): 13.9 (4/19)-->8.7 (8/) improved from previous -glucose range:200 per patient - without hypoglycemia -complication: neuropathy macrovascular: CAD CVA -medication limitation: not candidate for SGLT-2 given foot ulcer -diet: semi -exercise: limited byfoot pain Plan -reinterated to check glucose BID alternating fasting and 2 hours post meals -urged compliance with diet/exercise - POCT HEMOGLOBIN A1C TEST Patient Instructions Detenga Victoza And Humalog lucinda vez que inicie Soliqua (bazan insulina combinada y Victoza en lucinda jeringa) 30 unidades lucinda vez al da Stop victoza and Humalog; Restart Soliqua 30 units daily Continuar Metformina 1000 mg dos veces al da. Continue Metformin 1000mg twice a day Restart to check sugar twice a day 2. Dyslipidemia Comment: High intensity statin indicated. Currently takes Pravastatin Plan Switch after labs 3. Essential hypertension Comment: at goal Plan Managed by cardiology documented in this encounter Plan of Treatment Date Type Specialty Care Team Description 09/25/2019 Office Visit Endocrinology Diabetes & Justina Velázquez MD Metabolism [address] [place], [place] [address] Health Maintenance Due Date Last Done Comments HEPATITIS C (HCV) SCREEN 1950 EYE EXAM 1962 FOOT EXAM 1970 COLONOSCOPY 2002 Zoster Recombinant Vaccine 2002 (SHINGRIX) (1 of 2) DTaP,Tdap,and Td Vaccines (1 - 09/19/2007 09/18/2007 Tdap) MAMMOGRAM 03/11/2014 03/11/2013 Medicare Wellness Visit 2017 Osteoporosis Screening 2017 PNEUMOCOCCAL VACCINES 65+ (1 of 2 2017 - PCV13) INFLUENZA VACCINE (#1) 2019 HgA1C 11/14/2019 05/14/2019, 12/07/2004 LDL-C 01/03/2020 01/02/2019, 01/04/2005, 10/19/2004 URINE MICROALBUMIN 01/03/2020 01/02/2019, 01/04/2005 CREATININE (SERUM) 02/04/2020 02/03/2019, 01/02/2019, 01/08/2016, Additional history exists documented as of this encounter Procedures Procedure Name Priority Date/Time Associated Diagnosis Comments POCT HEMOGLOBIN A1C Routine 05/14/2019 Type 2 diabetes Results for this TEST mellitus with cardiac procedure are in the complication results section. documented in this encounter Results POCT HEMOGLOBIN A1C TEST (05/14/2019) POCT HBA1C 8.7 4 - 6 % Specimen Blood - CAPILLARY documented in this encounter Visit Diagnoses Diagnosis Type 2 diabetes mellitus with cardiac complication - Primary Dyslipidemia Other and unspecified hyperlipidemia Essential hypertension Unspecified essential hypertension documented in this encounter Insurance Payer Benefit Plan / Subscriber ID Effective Phone Address Type Group Dates [facility] [id number] 2017-Pres Medicare HEALTHCARE - HEALTHCARE ent Adv HMO MANAGED DUAL COMPLETE MEDICARE O [facility] MEDICAID OF xxxxxxxxx 2018-Pres [phone] Medicaid [place] ent [id number] [place] [address] documented as of this encounter
--- OUTSIDE RECORDS SUMMARY | 2019-06-04 15:27 | XMS REPORT | Summary of Care ---
:1950 Author Organization [facility] Address [address] [place] [address] Care Team Providers Name Role Phone Pcp, Patient Does Not Have A Primary Care Provider Reason for Visit Reason Comments Rx Concern/Question Encounter Details Date Type Department Care Team Description 05/03/2019 Telephone [facility] Justina Velázquez MD Rx Concern/Question Endocrinology- [address] Professional Office [address] [address] [address] [place] [address] [phone] Allergies Active Allergy Reactions Severity Noted Date Comments Levofloxacin Nausea and/or Vomiting 02/03/2019 documented as of this encounter (statuses as of 05/07/2019) Medications Medication Sig Dispensed Refills Start Date [...] as of this encounter (statuses as of 05/07/2019) Active Problems Problem Noted Date Encounter for routine gynecological examination 02/04/2013 Overview: 02/04/2013- negative colorectal cards x 3. ICD10 Diagnosis Term Wool Mixer Utility Overweight 01/25/2013 Overview: ICD10 Diagnosis Term Wool Mixer Utility documented as of this encounter (statuses as of 05/07/2019) Immunizations Name Administration Dates Next Due Td [...] Description 05/14/2019 Office Visit Endocrinology Diabetes & VelázquezJustina MD Metabolism [address] [place], [place] [id number] Health Maintenance Due Date Last Done Comments [...] history exists documented as of this encounter Results Not on filedocumented in this encounter Insurance Payer Benefit Plan / Subscriber ID Effective Phone Address Type Group Dates [facility] [id number] 2017-Pres Medicare HEALTHCARE - HEALTHCARE ent Adv HMO MANAGED DUAL COMPLETE MEDICARE O [facility] MEDICAID OF xxxxxxxxx 2018-Pres [phone] Medicaid [place] ent [id number] [place] [address] documented as of this encounter
--- OUTSIDE RECORDS SUMMARY | 2019-06-04 15:27 | XMS REPORT | Summary of Care ---
:1950 Author Organization [facility] Address [address] [place] [address] Care Team Providers Name Role Phone Pcp, Patient Does Not Have A Primary Care Provider Reason for Visit Reason Comments Follow-up Diabetes Mellitus II Encounter Details Date Type Department Care Team Description 05/14/2019 Office Visit [facility] Justina Velázquez MD Type 2 diabetes mellitus with cardiac complication (Primary Dx); Endocrinology- [address] [place] [address] Dyslipidemia; [facility] Essential hypertension Professional Office [place] [id number] [place] [address] [address] [place] [address] Allergies Active Allergy Reactions Severity [...] colorectal cards x 3. ICD10 Diagnosis Term Electric Motorman Utility Overweight 01/25/2013 Overview: ICD10 Diagnosis Term Electric Motorman Utility documented as of this encounter (statuses [...] Lyrica CAD s/p CABG in 2005. Sees dining room attendant cafeteria in [facility] DIABETIC HEALTH MAINTENANCE Last Ophthalmology visit was 10/2018, Stable retinopathy. Patient on TRACIE/ARB therapy - No Patient on ASA therapy - No.( naproxen for shoulder pain) Patient on Statin/Fibrate therapy - Yes. Patient instructed about daily feet exams, last sensation exam was Declined today. Sees infrastructure architect regularly . Patient has received Nutrition/Diet/Diabetes Education on Yes. Patient's Medications START taking these medications No medications on file CONTINUE taking these medications which have NOT CHANGED BLOOD SUGAR DIAGNOSTIC (KenzeiUCH ULTRA BLUE TEST STRIP) STRIP Use as [...] Hypertension Past Surgical History: Procedure Laterality Date MD ANESTH,OPEN HEART SURGERY+PUMP 2004 Family History Problem [...] file Gets together: Not on file Attends jain service: Not on file Active member of [...] Diabetes & Justina Velázquez MD Metabolism [address] [place], [place] [address] Health Maintenance Due Date Last Done Comments [...] ID Effective Phone Address Type Group Dates [facility] [id number] 2017-Pres Medicare HEALTHCARE - HEALTHCARE ent Adv HMO MANAGED DUAL COMPLETE MEDICARE O [facility] MEDICAID OF xxxxxxxxx 2018-Pres [phone] Medicaid [place] ent [id number] [place] [address] documented as of this encounter
--- OUTSIDE RECORDS SUMMARY | 2019-06-04 15:27 | XMS REPORT ---
[...] Medications Results No Known Results Summary Purpose [employer] Submission
[2019-06-04 16:22] LABS: Absolute Lymphocytes (CBC) 1.9 K/uL (0.7-4.9); Basophils % 0.8 % (0-1.3); Lymphocytes % 18.7 % (15.3-44.8); MPV 7.7 fL (7.6-11.3); RBC Red Blood Cell Count 3.77 M/uL (3.86-4.86)
[2019-06-04 16:23] LABS: Protime INR 1.29
--- NOTE | 2019-06-04 16:27 | ER ---
Nurse's Notes [facility] Name: Mildred Kelly Age: 69 yrs Sex: Female : 1950 Arrival Date: 06/04/2019 Time: 15:27 Bed 25 Private MD: Diagnosis: Cellulitis and acute lymphangitis of other parts of limb-plantar surface, foot;Type 2 diabetes mellitus;Cutaneous abscess of foot-right, plantar;Anemia, unspecified Presentation: 06/04 15:37 Presenting complaint: Sent by Dr. Mathew for wound on bottom of right foot. Transition hb of care: patient was not received from another setting of care. Onset of symptoms is unknown. Risk Assessment: Do you want to hurt yourself or someone else? Patient reports no desire to harm self or others. Initial Sepsis Screen: Does the patient meet any 2 criteria? No. Patient's initial sepsis screen is negative. Does the patient have a suspected source of infection? No. Patient's initial sepsis screen is negative. Care prior to arrival: None. 15:37 Method Of Arrival: Wheelchair hb 15:37 Acuity: JANE 3 hb Historical: - Allergies: 15:39 Bactrim; hb 15:39 Levaquin; hb - Home Meds: 15:39 glimepiride 4 mg Oral tab 1 tab twice daily [Active]; Lasix 40 mg Oral tab 1 tab once hb daily [Active]; Levaquin 750 mg Oral tab 1 tab once daily [Active]; Lyrica 75 mg Oral 2 times per day [Active]; metformin 1,000 mg Oral tab 1 tab 2 times per day [Active]; metoprolol tartrate 50 mg Oral tab 1 tab 2 times per day [Active]; naproxen 500 mg Oral TbEC 1 tab 2 times per day [Active]; pravastatin 40 mg Oral tab 1 tab once daily [Active]; - PMHx: 15:39 CHF; Diabetes - NIDDM; Hyperlipidemia; Hypertension; neuropathy; triple bypass; hb - PSHx: 15:39 Triple Bypass; hb - Immunization history:: Adult Immunizations up to date. - Social history:: Smoking status: Patient/guardian denies using tobacco. - Ebola Screening: : No symptoms or risks identified at this time. - Family history:: not pertinent. Screenin:04 Abuse screen: Denies threats or abuse. Nutritional screening: No deficits noted. tw2 Tuberculosis screening: No symptoms or risk factors identified. Fall Risk Secondary diagnosis (15 points) impaired mobility. Assessment: 15:39 General: Appears in no apparent distress. well groomed, Behavior is calm, cooperative, tw2 appropriate for age. Pain: Denies pain. Neuro: Level of Consciousness is awake, alert, obeys commands, Oriented to person, place, time, situation. Cardiovascular: Heart tones S1 S2 Patient's skin is warm and dry. Respiratory: Airway is patent Respiratory effort is even, unlabored, Respiratory pattern is regular, symmetrical, Breath sounds are clear bilaterally. GI: No signs and/or symptoms were reported involving the gastrointestinal system. Abdomen is round non-distended, Bowel sounds. : No signs and/or symptoms were reported regarding the genitourinary system. EENT: No signs and/or symptoms were reported regarding the EENT system. Derm: Reports wound to Right 5th toe, also noted large sized appears to be blood blister on the bottom of the right foot. Musculoskeletal: Range of motion: intact in all extremities. 17:00 Reassessment: Patient appears in no apparent distress at this time. No changes from tw2 previously documented assessment. Patient and/or family updated on plan of care and expected duration. Pain level reassessed. Patient is alert, oriented x 3, equal unlabored respirations, skin warm/dry/pink. 17:02 Reassessment: ABX pending Dr. Montague I\T\D with wound culture procedure, provider tw2 notified supplies are ready at bedside. 17:23 Reassessment: pt tolerated PO Diet sprite at this time, reports No nausea. tw2 17:59 Reassessment: Patient appears in no apparent distress at this time. No changes from tw2 previously documented assessment. Patient and/or family updated on plan of care and expected duration. Pain level reassessed. Patient is alert, oriented x 3, equal unlabored respirations, skin warm/dry/pink. 18:09 Reassessment: pt eating ADA diet at this time, NAD. tw2 19:00 General: Appears in no apparent distress. Behavior is calm, cooperative, appropriate fu for age. Pain: Denies pain. Neuro: Level of Consciousness is awake, alert, obeys commands, Oriented to person, place, time, situation. Respiratory: Airway Respiratory effort is even, unlabored, Respiratory pattern is regular, symmetrical. Derm: Reports wound to right 5th toe. 20:00 Reassessment: Patient appears in no apparent distress at this time. No changes from fu previously documented assessment. Patient and/or family updated on plan of care and expected duration. Pain level reassessed. Patient is alert, oriented x 3, equal unlabored respirations, skin warm/dry/pink. Vital Signs: 15:39 BP 143 / 73; Pulse 75; Resp 16; Temp 98.6; Pulse Ox 100% on R/A; Weight 63.5 kg; Height hb 5 ft. 4 in. (162.56 cm); Pain 6/10; 16:30 BP 130 / 81; Pulse 72; Resp 17; Pulse Ox 100% on R/A; tw2 17:03 BP 145 / 71; Pulse 88; Resp 17; Pulse Ox 100% on R/A; tw2 17:46 BP 136 / 60; Pulse 65; Resp 18; Temp 97.7(O); Pulse Ox 100% ; lt1 18:11 BP 153 / 88; Pulse 75; Resp 17; Pulse Ox 100% on R/A; tw2 15:39 Body Mass Index 24.03 (63.50 kg, 162.56 cm) hb ED Course: 15:27 Patient arrived in ED. mr 15:38 Triage completed. hb 15:39 Arm band placed on. hb 15:39 Bed in low position. Call light in reach. classroom monitor on. Pulse ox on. NIBP on. tw2 15:40 Ehsan Montague MD is Attending Physician. travis 15:50 Chaya Minaya RN is Primary Nurse. tw2 16:00 Inserted saline lock: 22 gauge in left antecubital area, using aseptic technique. Blood tw2 collected. 16:07 EKG done, by field technician. reviewed by Ehsan Montague MD. sm3 16:21 Blood Culture Adult (2) Sent. tw2 16:24 Theresa Sidhu MD is Hospitalizing Provider. travis 16:49 XRAY Chest (1 view) In Process Unspecified. EDMS 16:49 Foot Right 3 View In Process Unspecified. EDMS 17:10 Assist provider with I \T\ D: of an abscess on right plantar aspect RIGHT foot Set up I\T\D tw 2 tray. Performed by Ehsan Montague MD Culture sent to lab. Dressing with simple wet to dry dressing applied with kaitlin Patient tolerated well. Patient admitted, IV remains in place. 18:56 Urine Culture Sent. tw2 19:00 Report given to BRETT Metzger. tw2 19:09 Primary Nurse role handed off by Chaya Minaya RN tw2 19:14 Yassine Taylor, RN is Primary Nurse. fu Administered Medications: 17:15 Drug: NS 0.9% 1000 ml Route: IV; Rate: 125 ml/hr; Site: left antecubital; tw2 17:15 Drug: Zosyn 3.375 grams Route: IVPB; Infused Over: 60 mins; Site: left antecubital; tw2 18:41 Follow up: Response: No adverse reaction; IV Status: Completed infusion tw2 18:41 Drug: vancoMYCIN 1 grams Route: IVPB; Infused Over: 2 hrs; Site: left antecubital; tw2 Outcome: 16:25 Decision to Hospitalize by Provider. [facility] 21:10 Admitted to Med/surg accompanied by tech, Report called to Shara WEST. fu 21:10 Condition: stable 21:10 Instructed on the need for admit. 21:12 Patient left the ED. fu Signatures: Dispatcher [employer] EDMS Ehsan Montague MD MD cha Rivera, Mary mr Baxter, Heather, RN RN Chaya Minaya RN RN [facility] Yassine Taylor RN RN fu Montes, Shakira 3 [facility]
--- NOTE | 2019-06-04 16:27 | EDPHYS ---
Physician Documentation [facility] Name: Mildred Kelly Age: 69 yrs Sex: Female : 1950 Arrival Date: 06/04/2019 Time: 15:27 Bed 25 Private MD: ED Physician Ehsan Montague HPI: 06/04 16:20 This 69 yrs old Female presents to ER via Wheelchair with complaints of travis Infection. 16:20 The patient presents with an abscess, moderate-sized, decreased range of motion, pain, travis swelling, tenderness. The complaints affect the lateral aspect of right foot, arch of right foot. Context: The problem was sustained at an unknown site. Onset: The symptoms/episode began/occurred 3 day(s) ago. Modifying factors: The symptoms are alleviated by elevating leg, the symptoms are aggravated by movement, bending knee. Associated signs and symptoms: The patient has no apparent associated signs or symptoms. Treatment prior to arrival includes: prescription medications. Severity of symptoms: At their worst the symptoms were mild, moderate, in the emergency department the symptoms are unchanged. The patient has not experienced similar symptoms in the past. Historical: - Allergies: 15:39 Bactrim; hb 15:39 Levaquin; hb - Home Meds: 15:39 glimepiride 4 mg Oral tab 1 tab twice daily [Active]; Lasix 40 mg Oral tab 1 tab once hb daily [Active]; Levaquin 750 mg Oral tab 1 tab once daily [Active]; Lyrica 75 mg Oral 2 times per day [Active]; metformin 1,000 mg Oral tab 1 tab 2 times per day [Active]; metoprolol tartrate 50 mg Oral tab 1 tab 2 times per day [Active]; naproxen 500 mg Oral TbEC 1 tab 2 times per day [Active]; pravastatin 40 mg Oral tab 1 tab once daily [Active]; - PMHx: 15:39 CHF; Diabetes - NIDDM; Hyperlipidemia; Hypertension; neuropathy; triple bypass; hb - PSHx: 15:39 Triple Bypass; hb - Immunization history:: Adult Immunizations up to date. - Social history:: Smoking status: Patient/guardian denies using tobacco. - Ebola Screening: : No symptoms or risks identified at this time. - Family history:: not pertinent. ROS: 16:20 Constitutional: Negative for fever, chills, and weight loss, Eyes: Negative for injury, travis pain, redness, and discharge, ENT: Negative for injury, pain, and discharge, Neck: Negative for injury, pain, and swelling, Cardiovascular: Negative for chest pain, palpitations, and edema, Respiratory: Negative for shortness of breath, cough, wheezing, and pleuritic chest pain, Abdomen/GI: Negative for abdominal pain, nausea, vomiting, diarrhea, and constipation, Back: Negative for injury and pain, : Negative for injury, bleeding, discharge, and swelling, Skin: Negative for injury, rash, and discoloration, Neuro: Negative for headache, weakness, numbness, tingling, and seizure, Psych: Negative for depression, anxiety, suicide ideation, homicidal ideation, and hallucinations, Allergy/Immunology: Negative for hives, rash, and allergies, Endocrine: Negative for neck swelling, polydipsia, polyuria, polyphagia, and marked weight changes, Hematologic/Lymphatic: Negative for swollen nodes, abnormal bleeding, and unusual bruising. 16:20 MS/extremity: Positive for decreased range of motion, erythema, pain, swelling, tenderness, warmth, of the arch of right foot. Exam: 16:20 Constitutional: This is a well developed, well nourished patient who is awake, alert, travis and in no acute distress. Head/Face: Normocephalic, atraumatic. Eyes: Pupils equal round and reactive to light, extra-ocular motions intact. Lids and lashes normal. Conjunctiva and sclera are non-icteric and not injected. Cornea within normal limits. Periorbital areas with no swelling, redness, or edema. ENT: Nares patent. No nasal discharge, no septal abnormalities noted. Tympanic membranes are normal and external auditory canals are clear. Oropharynx with no redness, swelling, or masses, exudates, or evidence of obstruction, uvula midline. Mucous membranes moist. Neck: Trachea midline, no thyromegaly or masses palpated, and no cervical lymphadenopathy. Supple, full range of motion without nuchal rigidity, or vertebral point tenderness. No Meningismus. Chest/axilla: Normal chest wall appearance and motion. Nontender with no deformity. No lesions are appreciated. Cardiovascular: Regular rate and rhythm with a normal S1 and S2. No gallops, murmurs, or rubs. Normal PMI, no JVD. No pulse deficits. Respiratory: Lungs have equal breath sounds bilaterally, clear to auscultation and percussion. No rales, rhonchi or wheezes noted. No increased work of breathing, no retractions or nasal flaring. Abdomen/GI: Soft, non-tender, with normal bowel sounds. No distension or tympany. No guarding or rebound. No evidence of tenderness throughout. Back: No spinal tenderness. No costovertebral tenderness. Full range of motion. Neuro: Awake and alert, GCS 15, oriented to person, place, time, and situation. Cranial nerves II-XII grossly intact. Motor strength 5/5 in all extremities. Sensory grossly intact. Cerebellar exam normal. Normal gait. Psych: Awake, alert, with orientation to person, place and time. Behavior, mood, and affect are within normal limits. 16:20 Skin: abscess, that is small, of the right foot, cellulitis, that is minimal, induration, that is mild is noted, injury, is not appreciated. Vital Signs: 15:39 BP 143 / 73; Pulse 75; Resp 16; Temp 98.6; Pulse Ox 100% on R/A; Weight 63.5 kg; Height hb 5 ft. 4 in. (162.56 cm); Pain 6/10; 16:30 BP 130 / 81; Pulse 72; Resp 17; Pulse Ox 100% on R/A; tw2 17:03 BP 145 / 71; Pulse 88; Resp 17; Pulse Ox 100% on R/A; tw2 17:46 BP 136 / 60; Pulse 65; Resp 18; Temp 97.7(O); Pulse Ox 100% ; lt1 18:11 BP 153 / 88; Pulse 75; Resp 17; Pulse Ox 100% on R/A; tw2 15:39 Body Mass Index 24.03 (63.50 kg, 162.56 cm) Procedures: 17:15 I \T\ D: Incision and drainage was performed for an abscess of the right arch of right travis foot. I \T\ D: Prepped with Betadine, Anesthetized with nothing. Incised with 18 guage. Drained moderate amount purulent fluid. Dressing: non-Adherent dressing, the patient tolerated the procedure well. Splinting:. MDM: 15:40 Patient medically screened. [facility] 16:22 Data reviewed: vital signs, nurses notes, lab test result(s), EKG, radiologic studies, travis plain films. 06/04 15:44 Order name: Basic Metabolic Panel; Complete Time: 17:06 [facility] 06/04 15:44 Order name: CBC with Diff; Complete Time: 17:06 [facility] 06/04 15:44 Order name: LFT's; Complete Time: 17:06 [facility] 06/04 15:44 Order name: Magnesium; Complete Time: 17:06 [facility] 06/04 15:44 Order name: NT PRO-BNP; Complete Time: 17:06 [facility] 06/04 15:44 Order name: PT-INR; Complete Time: 17:06 [facility] 06/04 15:44 Order name: Troponin (emerg Dept Use Only); Complete Time: 17:06 [facility] 06/04 15:44 Order name: Sed Rate; Complete Time: 17:06 [facility] 06/04 15:44 Order name: Blood Culture Adult (2) [facility] 06/04 15:44 Order name: Urine Culture [facility] 06/04 15:44 Order name: Wound Culture [facility] 06/04 17:16 Order name: Vancomycin Level Trough [facility] 06/04 18:57 Order name: Urine Dipstick--Ancillary (enter results) 06/04 20:40 Order name: Urine Dipstick-Ancillary [facility] 06/04 15:44 Order name: XRAY Chest (1 view); Complete Time: 19:22 [facility] 06/04 15:44 Order name: EKG; Complete Time: 15:48 [facility] 06/04 15:44 Order name: Cardiac monitoring; Complete Time: 15:50 [facility] 06/04 15:44 Order name: EKG - Nurse/Tech; Complete Time: 16:21 [facility] 06/04 15:44 Order name: IV Saline Lock; Complete Time: 16:21 [facility] 06/04 15:44 Order name: Labs collected and sent; Complete Time: 17:26 [facility] 06/04 15:44 Order name: O2 Per Protocol; Complete Time: 17:26 [facility] 06/04 15:44 Order name: O2 Sat Monitoring; Complete Time: 17:26 [facility] 06/04 16:10 Order name: Foot Right 3 View; Complete Time: 19:22 [facility] 06/04 17:33 Order name: [facility] Cons [facility] 06/04 17:33 Order name: Heart Healthy [facility] 06/04 17:33 Order name: Foot Right Wo Cont [facility] 06/04 15:44 Order name: Urine Dipstick-Ancillary (obtain specimen); Complete Time: 18:55 [facility] 06/04 17:06 Order name: PO challenge: juice; Complete Time: 17:22 [facility] Administered Medications: 17:15 Drug: NS 0.9% 1000 ml Route: IV; Rate: 125 ml/hr; Site: left antecubital; tw2 17:15 Drug: Zosyn 3.375 grams Route: IVPB; Infused Over: 60 mins; Site: left antecubital; tw2 18:41 Follow up: Response: No adverse reaction; IV Status: Completed infusion tw2 18:41 Drug: vancoMYCIN 1 grams Route: IVPB; Infused Over: 2 hrs; Site: left antecubital; tw2 Disposition: 06/04/19 16:25 Hospitalization ordered by Theresa Sidhu for Inpatient Admission. Preliminary diagnosis are Cellulitis and acute lymphangitis of other parts of limb - plantar surface, foot, Type 2 diabetes mellitus, Cutaneous abscess of foot - right, plantar, Anemia, unspecified. - Bed requested for Telemetry/MedSurg (Inpatient). - Status is Inpatient Admission. fu - Condition is Fair. - Problem is new. - Symptoms have improved. UTI on Admission? No Signatures: Dispatcher [employer] [facility] Tran Radford Corey, MD MD cha Baxter, Heather, RN RN Chaya Minaya RN RN tw2 Yassine Taylor, BRETT RN fu Corrections: (The following items were deleted from the chart) 16:10 15:48 Foot Left 3 View+RAD.RAD.BRZ ordered. [facility] 17:18 16:25 Hospitalization Ordered by Theresa Sidhu MD for Inpatient Admission. Preliminary [facility] diagnosis is Cellulitis and acute lymphangitis of other parts of limb - plantar surface, foot; Type 2 diabetes mellitus; Cutaneous abscess of foot - right, plantar. Bed requested for Telemetry/MedSurg (Inpatient). Status is Inpatient Admission. Condition is Fair. Problem is new. Symptoms have improved. UTI on Admission? No. travis 18:36 17:18 06/04/2019 16:25 Hospitalization Ordered by Theresa Sidhu MD for Inpatient bd Admission. Preliminary diagnosis is Cellulitis and acute lymphangitis of other parts of limb - plantar surface, foot; Type 2 diabetes mellitus; Cutaneous abscess of foot - right, plantar; Anemia, unspecified. Bed requested for Telemetry/MedSurg (Inpatient). Status is Inpatient Admission. Condition is Fair. Problem is new. Symptoms have improved. UTI on Admission? No. travis 21:12 18:36 06/04/2019 16:25 Hospitalization Ordered by Theresa Sidhu MD for Inpatient fu Admission. Preliminary diagnosis is Cellulitis and acute lymphangitis of other parts of limb - plantar surface, foot; Type 2 diabetes mellitus; Cutaneous abscess of foot - right, plantar; Anemia, unspecified. Bed requested for Telemetry/MedSurg (Inpatient). Status is Inpatient Admission. Condition is Fair. Problem is new. Symptoms have improved. UTI on Admission? No.
[2019-06-04 16:51] LABS: ALT/SGPT 10 U/L (12-78); AST/SGOT 11 U/L (15-37); Albumin 2.7 g/dL (3.4-5.0); Alkaline Phosphatase 159 U/L (45-117); BUN Blood Urea Nitrogen 27 mg/dL (7-18); Bicarbonate 25 mmol/L (21-32); Bilirubin Direct 0.1 mg/dL (0-0.2); Bilirubin Total 0.4 mg/dL (0.2-1.0); Glucose Level 66 mg/dL (74-106); Magnesium 1.9 mg/dL (1.8-2.4); NT PRO-BNP 1377 pg/mL (<125); Potassium 4.1 mmol/L (3.5-5.1); Protein, Total 8.5 g/dL (6.4-8.2); Sodium Level 140 mmol/L (136-145); Troponin (Emerg Dept Use Only) < 0.02 ng/mL (0.0-0.045)
[2019-06-04] MEDS ORDERED: NA CHLORIDE 0.9% 1,000 ML ONE (16:58)
[2019-06-04] MEDS ORDERED: PIPER/TAZO/NS 3.375gm 3.375 GM/100 ML BAG ONE (16:58)
--- NOTE | 2019-06-04 17:10 | RAD REPORT ---
EXAM DESCRIPTION: RAD - Foot Right 3 View - 06/04/2019 4:45 pm CLINICAL HISTORY: Right foot pain FINDINGS: Large plantar calcaneal spur seen with calcifications. Pes planus deformity Osteoporosis Areas of destruction involve portions of the fifth proximal, middle and distal phalanges. Erosion inv olves the fifth metatarsal head. All of this is compatible with osteomyelitis
--- NOTE | 2019-06-04 17:11 | RAD REPORT ---
EXAM DESCRIPTION: Paddy Single View06/04/2019 4:45 pm CLINICAL HISTORY: cough COMPARISON: January 2019 FINDINGS: The lungs appear clear of acute infiltrate. The heart is mildly enlarged. Postsurgical changes involve the chest. IMPRESSION: No acute abnormalities displayed
--- NOTE | 2019-06-04 17:43 | P.HP ---
Certification for Inpatient Patient admitted to: Inpatient With expected LOS: >2 Midnights Patient will require the following post-hospital care: None Practitioner: I am a practitioner with admitting privileges, knowledge of patient current condition, hospital course, and medical plan of care. Services: Services provided to patient in accordance with Admission requirements found in Title 42 Section 412.3 of the Code of Federal Regulations Patient History Date of Service: 06/04/19 Primary Care Provider: Dr Lieberman - ID and Dr Booth - Podiatry and Dr Bond - Surgery Reason for admission: Right foot Wound infection History of Present Illness: Patient is a 69 yo F with PMHx of DM2, PVD, HTN, CHF who was recently discharged from the Hospital for diabetic foot wound on the left. Patient completed IV antibiotic therapy and has been following up with infectious disease at the wound healing Center. Patient states that the wound on the right plantar area has been worsening and appears to be infected. She does have a specialized boot that she is wearing for both legs. Patient was also seen at the [facility] for arterial disease however no intervention was done due to her infection in the past. Patient was seen by Dr. Lieberman today at the wound healing Center and was sent to ED for further evaluation and treatment. Patient reports drainage with foul odor. No fever chills. Patient's symptoms are constant moderate progressively worsening. Her previous wound cultures grew out multiple drug-resistant bacteria including Pseudomonas enterococcus and MRSA. Allergies levofloxacin [From Levaquin] Allergy (Verified 01/19/19 02:46) Nausea/Vomiting Home Medications: Furosemide [Lasix*] 40 mg PO DAILY 05/11/16 Metformin HCl [Metformin ER Osmotic] 1,000 mg PO BID 05/11/16 Metoprolol Tartrate [Lopressor*] 50 mg PO BID 05/11/16 Pravastatin [Pravachol*] 40 mg PO DAILY 05/11/16 Naproxen [Naprosyn] 500 mg PO BID 11/13/17 Pregabalin [Lyrica*] 75 mg PO BID 09/04/18 Clopidogrel Bisulfate [Plavix] 1 tab PO DAILY 01/19/19 Insulin Glargine/Lixisenatide [Soliqua 100 Unit-33 Mcg/ml Pen] 26 unit SQ DAILY 01/20/19 - Past Medical/Surgical History Diabetic: Yes -: CAD -: DIABETES -: HTN -: cholesterol -: neuropathy -: Left Leg artery clot removed -: CHF -: triple bypass -: CABG X 3 -: cataract sx - Family History Father -: Stroke Sister -: Cancer Mother -: Heart disease - Social History Alcohol use: No CD- Drugs: No Caffeine use: Yes Review of Systems 10-point ROS is otherwise unremarkable Physical Examination - Physical Exam General: Alert, In no apparent distress Neck: 2+ carotid pulse no bruit Respiratory: Clear to auscultation bilaterally, Normal air movement Cardiovascular: Regular rate/rhythm, Normal S1 S2 Gastrointestinal: Normal bowel sounds, No tenderness Musculoskeletal: Swelling, Erythema, Tenderness, Warmth Integumentary: Diabetic ulcer (Right and left foot), Arterial ulcer (Left Foot) Neurological: Normal speech, Normal strength at 5/5 x4 extr, Normal tone, Abnormal gait Lymphatics: No axilla or inguinal lymphadenopathy - Studies Laboratory Data (last 24 hrs) 06/04/19 16:00: PT 15.1 H, INR 1.29 06/04/19 16:00: WBC 10.3, Hgb 9.8 L, Hct 30.0 L, Plt Count 500 H 06/04/19 16:00: Sodium 140, Potassium 4.1, BUN 27 H, Creatinine 0.96, Glucose 66 L, Magnesium 1.9, Total Bilirubin 0.4, AST 11 L, ALT 10 L, Alkaline Phosphatase 159 H Assessment and Plan - Problems (Diagnosis) (1) Cellulitis Current Visit: No Status: Acute Plan: Right leg Cellulitis 2.2 to Right diabetic Ulcer -Will start on IV vanc and cefepime -Blood and wound culture -ID consulted as well -Will get MRI to [facility] Qualifiers: Site of cellulitis: extremity Site of cellulitis of extremity: lower extremity Laterality: right Qualified Code(s): L03.115 - Cellulitis of right lower limb (2) Diabetic foot ulcer Current Visit: No Status: Acute Plan: Right sided Diabetic Foot ulcer with Worsening. 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 transplanted heart: [place] heart Associated angina: without angina Qualified Code(s): I25.10 - Atherosclerotic heart disease of [place] coronary artery without angina pectoris (4) HTN (hypertension) Onset Date: 05/26/16 Current Visit: No Status: Chronic Qualifiers: Hypertension type: essential hypertension (5) Hyperlipidemia Onset Date: 09/05/18 Current Visit: No Status: Chronic Qualifiers: Hyperlipidemia type: mixed hyperlipidemia (6) Peripheral vascular disease due to secondary diabetes Current Visit: No Status: Chronic (7) Type 2 diabetes mellitus with foot ulcer Current Visit: No Status: Chronic Qualifiers: Discharge Plan: Home Plan to discharge in: Greater than 2 days - Advance Directives Does patient have a Living Will: No Does patient have a Durable POA for Healthcare: No - Code Status/Comfort Care Code Status Assessed: Yes Critical Care: No
[2019-06-04] MEDS ORDERED: CEFEPIME/SWI 1gm 10 ML IV SCH (18:00)
[2019-06-04] MEDS ORDERED: VANCOMYCIN 1.25 GM in NA CHLORIDE 0.9% 250 ML IVPB SCH (18:00)
[2019-06-04 20:39] LABS: Urine Blood NEGATIVE (NEG); Urine Glucose NEGATIVE (NEG); Urine Protein NEGATIVE (NEG)
[2019-06-04] MEDS ORDERED: ONDANSETRON 4 MG/2 ML VIAL IV PRN (22:09)
[2019-06-04] MEDS: INSULIN -REGULAR HUMAN 50 UNIT/0.5 ML ML SQ SCH (22:09)
[2019-06-05 05:53] LABS: Absolute Lymphocytes (CBC) 1.7 K/uL (0.7-4.9); Basophils % 0.7 % (0-1.3); Hematocrit 26.4 % (36.0-45.0); Lymphocytes % 21.2 % (15.3-44.8); MPV 7.9 fL (7.6-11.3); RBC Red Blood Cell Count 3.33 M/uL (3.86-4.86)
[2019-06-05 06:16] LABS: Albumin 2.4 g/dL (3.4-5.0); Bilirubin Total 0.4 mg/dL (0.2-1.0); Potassium 3.8 mmol/L (3.5-5.1); Protein, Total 7.2 g/dL (6.4-8.2)
--- NOTE | 2019-06-05 07:26 | EKG ---
Test Date: 2019-06-04 Test Time: 16:02:19 Liquor Department Manager: SHANNAN MEASUREMENT RESULTS: Intervals: Rate: 74 MT: 128 QRSD: 98 QT: 382 QTc: 424 [place]: P: 35 MT: 128 QRS: -49 T: 27 INTERPRETIVE STATEMENTS: Normal sinus rhythm Left axis deviation Cannot rule out Anterior infarct, age undetermined Abnormal ECG Compared to ECG 02/14/2019 16:40:13 No significant changes Electronically Signed On 06-05-19 07:25:14 CDT by Jay Wen
[2019-06-05] MEDS: INSULIN -REGULAR HUMAN 50 UNIT/0.5 ML ML SQ SCH ×4 (07:30→21:00)
[2019-06-05] MEDS ORDERED: POTASSIUM 25 MEQ EFFERV TAB PO ONE (09:00)
[2019-06-05] MEDS ORDERED: CEFEPIME 1 GM/VIAL IV SCH (09:00)
--- NOTE | 2019-06-05 10:03 | RAD REPORT ---
EXAM DESCRIPTION: MRIFoot Right Wo Cont06/04/2019 10:19 pm CLINICAL HISTORY: Left foot pain and swelling COMPARISON: June 04, 2019 x-ray TECHNIQUE: Axial, sagittal and coronal magnetic resonance imaging of the left foot was obtained. FINDINGS: Abnormal signal is present throughout the first metatarsal head, first proximal, middle an d distal phalanges, second metatarsal head and third metatarsal head consistent with osteomyelitis A discrete fluid-filled abscess is not seen IMPRESSION: Osteomyelitis involving the first metatarsal, first proximal, middle and distal phalanx, second and third metatarsal heads
[2019-06-05] MEDS: PREGABALIN 75 MG CAP PO SCH ×2 (11:07→21:37)
[2019-06-05] MEDS: METOPROLOL TAR 50 MG TAB PO SCH ×3 (11:09→21:37)
[2019-06-05] MEDS: FUROSEMIDE 40 MG TABLET PO SCH ×2 (11:10→11:32)
[2019-06-05] MEDS: TRAMADOL HCL 50 MG TAB PO PRN ×2 (11:58→18:54)
--- NOTE | 2019-06-05 14:24 | P.PN ---
Subjective Date of Service: 06/05/19 Primary Care Provider: Dr Lieberman - ID and Dr Booth - Podiatry and Dr Bond - Surgery Chief Complaint: Right foot Wound infection Subjective: No C/O voiced, Tolerating diet, Improving, Working w/ PT, Doing well , Other (Pending consult from Dr Lieberman.) Review of Systems 10-point ROS is otherwise unremarkable Physical Examination - Vital Signs Temperature: 97.4 F Blood Pressure: 154/66 Pulse: 68 Respirations: 16 Pulse Ox (%): 100 - Physical Exam General: Alert, In no apparent distress HEENT: Atraumatic, PERRLA, EOMI Neck: Supple, JVD not distended Respiratory: Clear to auscultation bilaterally, Normal air movement Cardiovascular: Regular rate/rhythm, Normal S1 S2 Gastrointestinal: Normal bowel sounds, No tenderness Musculoskeletal: Erythema, Tenderness, Warmth Integumentary: No rashes, Diabetic ulcer, Venous stasis ulcer, Arterial ulcer Neurological: Normal speech, Normal tone, Normal affect Lymphatics: No axilla or inguinal lymphadenopathy - Studies Laboratory Data (last 24 hrs) 06/04/19 16:00: PT 15.1 H, INR 1.29 06/04/19 16:00: WBC 10.3, Hgb 9.8 L, Hct 30.0 L, Plt Count 500 H 06/04/19 16:00: Sodium 140, Potassium 4.1, BUN 27 H, Creatinine 0.96, Glucose 66 L, Magnesium 1.9, Total Bilirubin 0.4, AST 11 L, ALT 10 L, Alkaline Phosphatase 159 H Medications List Reviewed: Yes Assessment And Plan - Current Problems (Diagnosis) (1) Cellulitis Current Visit: No Status: Acute Plan: Right leg Cellulitis 2.2 to Right diabetic Ulcer -On IV vanc and cefepime -Blood and wound culture pending at this time -ID consulted. Appreciated Reccs. -MRI + for osteomyelitis of the right foot -Will need 6 week of IV Vanc and zosyn Qualifiers: Site of cellulitis: extremity Site of cellulitis of extremity: lower extremity Laterality: right Qualified Code(s): L03.115 - Cellulitis of right lower limb (2) Diabetic foot ulcer Current Visit: No Status: Acute Plan: Right sided Diabetic Foot ulcer with Worsening. -Purulent DC and foul odor -On IV Vanc and cefepime -Foot MRI + for Osteomyelitis -Wound Culture and Blood Culture pending -ID and [facility] consulted. Appreciated Reccs Qualifiers: Diabetic foot ulcer location: toe Diabetes mellitus type: type 2 Laterality: right Non-pressure ulcer stage: with necrosis of muscle Qualified Code(s): E11.621 - Type 2 diabetes mellitus with foot ulcer; L97.513 - Non-pressure chronic ulcer of other part of right foot with necrosis of muscle (3) CAD (coronary artery disease) Onset Date: 05/26/16 Current Visit: No Status: Chronic Qualifiers: Coronary Disease-Associated Artery/Lesion type: [place] artery [place] vs. transplanted heart: [place] heart Associated angina: without angina Qualified Code(s): I25.10 - Atherosclerotic heart disease of [place] coronary artery without angina pectoris (4) HTN (hypertension) Onset Date: 05/26/16 Current Visit: No Status: Chronic Qualifiers: Hypertension type: essential hypertension (5) Hyperlipidemia Onset Date: 09/05/18 Current Visit: No Status: Chronic Qualifiers: Hyperlipidemia type: mixed hyperlipidemia (6) Peripheral vascular disease due to secondary diabetes Current Visit: No Status: Chronic (7) Type 2 diabetes mellitus with foot ulcer Current Visit: No Status: Chronic Qualifiers: Discharge Plan: Other Plan to discharge in: Greater than 2 days - Code Status/Comfort Care Code Status Assessed: Yes Critical Care: No
--- NOTE | 2019-06-05 16:13 | RAD REPORT ---
EXAM DESCRIPTION: RAD - Chest Single View - 06/05/2019 3:53 pm CLINICAL HISTORY: PICC line placement COMPARISON: June 04 FINDINGS: Portable chest was obtained following placement of a right upper extremity PICC line. The catheter tip is in the SVC atrial junction. Shallow inspiration examination places the tip at the SVC atrial junction rather than the distal SVC. Positioning is considered could..
--- NOTE | 2019-06-05 17:00 | CON ---
History Of Present Illness: Patient is a 69-year-old female, well known to me from left foot osteomy elitis and diabetic foot ulcer, coming in with right foot cellulitis and diabetic foot ulcer, which h as worsen, and developed a blister at the plantar surface. Patient's home health team called me and I suggested her to go to the emergency room from where patient was admitted for IV antibiotic and wou nd care. An MRI showed that she has multiple metatarsal bones involved with osteomyelitis. Patient denies any headache, nausea, vomiting, chest pain, abdominal pain, constipation, or diarrhea. Past Medical History: Coronary artery disease, diabetes mellitus, hypertension, hypercholesteremia, neuropathy secondary to diabetes, left foot osteomyelitis, 5th toe removal, congestive heart failure, triple bypass, CABG x3, cataract surgery, family history of stroke and cancer and heart disease. Social History: Nonsmoker, nondrinker. Family History: Noncontributory. Medications: Currently getting vancomycin. Allergies: LEVAQUIN. Review of Systems: A 10-point review was performed. Physical Examination: General: This is a 69-year-old female, lying in bed, not in any acute cardiopulmonary distress. Vital Signs: Temperature 97, pulse 68, respirations 16, blood pressure . HEENT: Unremarkable. Neck: Supple. Lungs: Clear to auscultation. Heart: S1 and S2 regular. Abdomen: Soft, nontender. Bowel sounds present. Extremities: No edema. Right foot with ulceration with minimal necrotic tissue noted at the plantar surface, otherwise a large ulcer extending from the plantar area to the small toe. Laboratory Data: Shows WBC 8 down from 10.3 yesterday, hemoglobin 8.9, platelets are 437. Chemistry shows sodium 140, potassium 3.8, chloride 107, bicarb 26, BUN 29, creatinine 1.14, glucose is 142. Liver enzymes within normal limits. MRI of the foot shows patient has osteomyelitis involving 1st me tatarsal, 1st proximal middle and distal phalanx, 2nd and 3rd metatarsal head. Assessment And Plan: Right foot osteomyelitis and diabetic foot ulcer with diabetic neuropathy in a patient with multiple medical problems. I would add Zosyn and continue vancomycin. Monitor kidney a nd liver functions closely. We will follow the patient closely, transfer to long-term acute care at [facility]. NF/MODL Voice ID: [id number] Report ID: [id number]
[2019-06-05] MEDS ORDERED: NA CHLORIDE 0.9% 250 ML ONE (17:31)
[2019-06-05] MEDS: PIPER/TAZO/NS 3.375gm 3.375 GM/100 ML BAG IVPB SCH (17:34)
[2019-06-05] MEDS: VANCOMYCIN 1.25 GM in NA CHLORIDE 0.9% 250 ML IVPB SCH (17:36)
--- NOTE | 2019-06-05 20:24 | CON ---
Date of Consultation: 06/05/2019 Diagnosis: Bilateral feet open ulcers with osteomyelitis of the left foot. History Of Present Illness: This is the case of a 69-year-old patient, known by us since the past. She had necrotic ulcers in bilateral feet that need to be cleaned. She went to LTAC, received long-t erm antibiotics for osteomyelitis, improved, sent home, started walking and a few days later develope d these thick blisters on the right foot. She comes to us because she was so concerned about being i nfected. She was admitted and a surgical consult was obtained. Other than that and the trauma from the new issues she has, she does not remember any other trauma. There is no dysuria, hematuria, nadia tochezia, or melena. There is no recent traveling out of the country. There is no family member sic k at home. Past Medical History: Includes peripheral vascular disease, osteomyelitis. Allergies: LEVOFLOXACIN. Social History: She does not smoke. She does not drink alcohol. Family History: Unremarkable. Review of Systems: Ten points otherwise unremarkable. Physical Examination: General: The patient is awake and alert. HEENT: Pupils are equal and reactive, anicteric. Neck: Supple. Chest: Clear. Abdomen: Soft and depressible. No guarding or rebound. Extremities: Over the right foot, the patient has what looks like a ruptured blister, mostly pressur e related. The tissue and the dermis underneath do not look gangrenous. No fluctuance is present. No crepitus. The blisters were removed apparently by the ER physician. Improving from yesterday. I n the left foot, patient has an ulcer with what looked like Hydrofera Blue treatment. No cyanosis pr esent. Capillary refill present. Laboratory Data: Blood work shows WBC count of 8.0, INR is 1.29, potassium 3.8. Foot MRI done 06/04 shows osteomyelitis involving the 1st metatarsal, 1st proximal, middle, and distal phalanx; 2nd and 3rd metatarsal head of the left foot. Assessment: This is a 69-year-old patient with a history of osteomyelitis of the left foot and also have some new blisters on the right side, but that mainly after she was walking with the new shoes. That area does not have to be drained at this moment. It looked like the blisters that the ER physic steve removed is enough to let this wound being exposed and being treated. We can treat that with a Me dihoney or even Kori. Antibiotics for osteomyelitis as per Dr. Lieberman and Dr. Sidhu. She was expl ained the importance of diabetic shoes, nutrition, diabetes control. She also was advised to follow up with the wound healing center. VAHE/CHRIS Voice ID: [id number] Report ID: [id number]
[2019-06-05] MEDS: ATORVASTATIN 10 MG TAB PO SCH (21:36)
[2019-06-05 22:33] LABS: Urine Appearance CLEAR; Urine Bilirubin NEGATIVE (NEG); Urine Blood NEGATIVE (NEG); Urine Color YELLOW; Urine Glucose NEGATIVE (NEG); Urine Protein NEGATIVE (NEG); Urine Urobilinogen 0.2 mg/dL (0.2-1.0); Urine pH 6.5 (5.0-7.0)
[2019-06-05 23:03] LABS: Urine Microscopic Reflex NO UMIC
[2019-06-06] MEDS: PIPER/TAZO/NS 3.375gm 3.375 GM/100 ML BAG IVPB SCH ×3 (00:56→17:16)
[2019-06-06] MEDS ORDERED: LIDOCAINE 1% MPF 5 ML VIAL IM PRN (02:00)
[2019-06-06] MEDS ORDERED: SODIUM CHLORIDE 0.9% 10ML INJ IV PRN ×2 (02:00)
[2019-06-06] MEDS: TRAMADOL HCL 50 MG TAB PO PRN ×3 (04:33→21:59)
[2019-06-06 05:15] LABS: Absolute Lymphocytes (CBC) 1.9 K/uL (0.7-4.9); Basophils % 0.9 % (0-1.3); Lymphocytes % 26.3 % (15.3-44.8); RBC Red Blood Cell Count 3.28 M/uL (3.86-4.86)
[2019-06-06 05:27] LABS: Albumin 2.1 g/dL (3.4-5.0); Bilirubin Total 0.3 mg/dL (0.2-1.0); Phosphorus 4.2 mg/dL (2.5-4.9); Potassium 4.2 mmol/L (3.5-5.1); Protein, Total 6.8 g/dL (6.4-8.2)
[2019-06-06] MEDS: INSULIN -REGULAR HUMAN 50 UNIT/0.5 ML ML SQ SCH ×4 (07:30→21:16)
[2019-06-06] MEDS: MEDIHONEY 44 ML TOPICAL TUBE TOP SCH (09:00)
[2019-06-06] MEDS: METOPROLOL TAR 50 MG TAB PO SCH ×2 (10:15→21:16)
[2019-06-06] MEDS: FUROSEMIDE 40 MG TABLET PO SCH (10:16)
[2019-06-06] MEDS: PREGABALIN 75 MG CAP PO SCH ×2 (10:16→21:16)
--- NOTE | 2019-06-06 13:35 | P.PN ---
Subjective Date of Service: 06/06/19 Primary Care Provider: Dr Lieberman - ID and Dr Booth - Podiatry and Dr Bond - Surgery Chief Complaint: Right foot Wound infection Subjective: No new changes, Improving, NPO, Doing well Review of Systems 10-point ROS is otherwise unremarkable Physical Examination - Vital Signs Temperature: 97.1 F Blood Pressure: 140/60 Pulse: 62 Respirations: 16 Pulse Ox (%): 100 - Physical Exam General: Alert, In no apparent distress HEENT: Atraumatic, PERRLA, EOMI Neck: Supple, JVD not distended Respiratory: Clear to auscultation bilaterally, Normal air movement Cardiovascular: Regular rate/rhythm, Normal S1 S2 Gastrointestinal: Normal bowel sounds, No tenderness Musculoskeletal: Erythema, Tenderness, Warmth Integumentary: No rashes Neurological: Normal speech, Normal tone, Normal affect Lymphatics: No axilla or inguinal lymphadenopathy - Studies Medications List Reviewed: Yes Assessment And Plan - Current Problems (Diagnosis) (1) Cellulitis Current Visit: No Status: Acute Plan: Right leg Cellulitis 2.2 to Right diabetic Ulcer -On IV vanc and cefepime -Blood and wound culture pending at this time -ID consulted. Appreciated Reccs. -MRI + for osteomyelitis of the right foot -Will need 6 week of IV Vanc and zosyn Qualifiers: Site of cellulitis: extremity Site of cellulitis of extremity: lower extremity Laterality: right Qualified Code(s): L03.115 - Cellulitis of right lower limb (2) Diabetic foot ulcer Current Visit: No Status: Acute Plan: Right sided Diabetic Foot ulcer with Worsening. -Purulent DC and foul odor -On IV Vanc and cefepime -Foot MRI + for Osteomyelitis -Wound Culture and Blood Culture pending -ID and [facility] consulted. Appreciated Reccs Qualifiers: Diabetic foot ulcer location: toe Diabetes mellitus type: type 2 Laterality: right Non-pressure ulcer stage: with necrosis of muscle Qualified Code(s): E11.621 - Type 2 diabetes mellitus with foot ulcer; L97.513 - Non-pressure chronic ulcer of other part of right foot with necrosis of muscle (3) CAD (coronary artery disease) Onset Date: 05/26/16 Current Visit: No Status: Chronic Qualifiers: Coronary Disease-Associated Artery/Lesion type: [place] artery [place] vs. transplanted heart: [place] heart Associated angina: without angina Qualified Code(s): I25.10 - Atherosclerotic heart disease of [place] coronary artery without angina pectoris (4) HTN (hypertension) Onset Date: 05/26/16 Current Visit: No Status: Chronic Qualifiers: Hypertension type: essential hypertension (5) Hyperlipidemia Onset Date: 09/05/18 Current Visit: No Status: Chronic Qualifiers: Hyperlipidemia type: mixed hyperlipidemia (6) Peripheral vascular disease due to secondary diabetes Current Visit: No Status: Chronic (7) Type 2 diabetes mellitus with foot ulcer Current Visit: No Status: Chronic Qualifiers: Discharge Plan: Home Plan to discharge in: Greater than 2 days - Code Status/Comfort Care Code Status Assessed: Yes Critical Care: No
[2019-06-06] MEDS: VANCOMYCIN 1.25 GM in NA CHLORIDE 0.9% 250 ML IVPB SCH (19:27)
[2019-06-06] MEDS: ATORVASTATIN 10 MG TAB PO SCH (21:16)
[2019-06-07] MEDS: PIPER/TAZO/NS 3.375gm 3.375 GM/100 ML BAG IVPB SCH ×3 (00:48→17:24)
[2019-06-07 05:50] LABS: Absolute Lymphocytes (CBC) 1.8 K/uL (0.7-4.9); Hematocrit 25.4 % (36.0-45.0); Lymphocytes % 23.5 % (15.3-44.8); MPV 7.9 fL (7.6-11.3); RBC Red Blood Cell Count 3.21 M/uL (3.86-4.86)
[2019-06-07 06:03] LABS: Albumin 2.2 g/dL (3.4-5.0); Bilirubin Total 0.4 mg/dL (0.2-1.0); Potassium 4.1 mmol/L (3.5-5.1); Protein, Total 6.9 g/dL (6.4-8.2)
[2019-06-07] MEDS: INSULIN -REGULAR HUMAN 50 UNIT/0.5 ML ML SQ SCH ×4 (07:30→21:21)
[2019-06-07] MEDS: MEDIHONEY 44 ML TOPICAL TUBE TOP SCH (09:27)
[2019-06-07] MEDS: PREGABALIN 75 MG CAP PO SCH ×2 (09:29→21:22)
[2019-06-07] MEDS: METOPROLOL TAR 50 MG TAB PO SCH ×2 (12:28→21:22)
[2019-06-07] MEDS: TRAMADOL HCL 50 MG TAB PO PRN ×2 (12:28→17:29)
[2019-06-07] MEDS: FUROSEMIDE 40 MG TABLET PO SCH (12:29)
--- NOTE | 2019-06-07 12:47 | P.PN ---
Subjective Date of Service: 06/07/19 Primary Care Provider: Dr Lieberman - ID and Dr Booth - Podiatry and Dr Bond - Surgery Chief Complaint: Right foot Wound infection Subjective: No C/O voiced, Tolerating diet, Ambulating, Working w/ PT, Doing well Review of Systems 10-point ROS is otherwise unremarkable Physical Examination - Vital Signs Temperature: 97.1 F Blood Pressure: 135/60 Pulse: 66 Respirations: 66 Pulse Ox (%): 99 - Physical Exam General: Alert, In no apparent distress HEENT: Atraumatic, PERRLA, EOMI Neck: Supple, JVD not distended Respiratory: Clear to auscultation bilaterally, Normal air movement Cardiovascular: Regular rate/rhythm, Normal S1 S2 Gastrointestinal: Normal bowel sounds, No tenderness Musculoskeletal: Erythema, Tenderness, Warmth Integumentary: No rashes Neurological: Normal speech, Normal tone, Normal affect Lymphatics: No axilla or inguinal lymphadenopathy - Studies Medications List Reviewed: Yes Assessment And Plan - Current Problems (Diagnosis) (1) Cellulitis Current Visit: No Status: Acute Plan: Right leg Cellulitis 2.2 to Right diabetic Ulcer -On IV vanc and Zosyn -wound culture + for MRSA -ID consulted. Appreciated Reccs. -MRI + for osteomyelitis of the right foot -Will need 6 week of IV Vanc and zosyn Qualifiers: Site of cellulitis: extremity Site of cellulitis of extremity: lower extremity Laterality: right Qualified Code(s): L03.115 - Cellulitis of right lower limb (2) Diabetic foot ulcer Current Visit: No Status: Acute Plan: Right sided Diabetic Foot ulcer with Worsening. -Purulent DC and foul odor -On IV Vanc and cefepime -Foot MRI + for Osteomyelitis -Wound Culture + for MRSA -ID and [facility] consulted. Appreciated Reccs Qualifiers: Diabetic foot ulcer location: toe Diabetes mellitus type: type 2 Laterality: right Non-pressure ulcer stage: with necrosis of muscle Qualified Code(s): E11.621 - Type 2 diabetes mellitus with foot ulcer; L97.513 - Non-pressure chronic ulcer of other part of right foot with necrosis of muscle (3) CAD (coronary artery disease) Onset Date: 05/26/16 Current Visit: No Status: Chronic Qualifiers: Coronary Disease-Associated Artery/Lesion type: [place] artery [place] vs. transplanted heart: [place] heart Associated angina: without angina Qualified Code(s): I25.10 - Atherosclerotic heart disease of [place] coronary artery without angina pectoris (4) HTN (hypertension) Onset Date: 05/26/16 Current Visit: No Status: Chronic Qualifiers: Hypertension type: essential hypertension (5) Hyperlipidemia Onset Date: 09/05/18 Current Visit: No Status: Chronic Qualifiers: Hyperlipidemia type: mixed hyperlipidemia (6) Peripheral vascular disease due to secondary diabetes Current Visit: No Status: Chronic (7) Type 2 diabetes mellitus with foot ulcer Current Visit: No Status: Chronic Qualifiers: Discharge Plan: LTAC Plan to discharge in: Greater than 2 days - Code Status/Comfort Care Code Status Assessed: Yes Critical Care: No
[2019-06-07] MEDS: VANCOMYCIN 1.25 GM in NA CHLORIDE 0.9% 250 ML IVPB SCH (17:32)
[2019-06-07] MEDS: ATORVASTATIN 10 MG TAB PO SCH (21:22)
[2019-06-07] MEDS: DOCUSATE NA 100 MG CAP PO SCH (21:22)
[2019-06-08] MEDS: PIPER/TAZO/NS 3.375gm 3.375 GM/100 ML BAG IVPB SCH ×3 (01:29→16:45)
[2019-06-08 05:15] LABS: Absolute Lymphocytes (CBC) 1.9 K/uL (0.7-4.9); Hematocrit 24.7 % (36.0-45.0); Lymphocytes % 24.9 % (15.3-44.8); MPV 8.1 fL (7.6-11.3); RBC Red Blood Cell Count 3.11 M/uL (3.86-4.86)
[2019-06-08 05:35] LABS: Albumin 2.1 g/dL (3.4-5.0); Bilirubin Total 0.3 mg/dL (0.2-1.0); Potassium 4.1 mmol/L (3.5-5.1); Protein, Total 6.8 g/dL (6.4-8.2)
[2019-06-08] MEDS: INSULIN -REGULAR HUMAN 50 UNIT/0.5 ML ML SQ SCH ×4 (07:30→22:05)
[2019-06-08] MEDS: MEDIHONEY 44 ML TOPICAL TUBE TOP SCH (09:00)
[2019-06-08] MEDS: PREGABALIN 75 MG CAP PO SCH ×2 (09:03→22:04)
[2019-06-08] MEDS: METOPROLOL TAR 50 MG TAB PO SCH ×2 (09:03→22:05)
[2019-06-08] MEDS: FUROSEMIDE 40 MG TABLET PO SCH (09:05)
[2019-06-08] MEDS: DOCUSATE NA 100 MG CAP PO SCH (09:05)
--- NOTE | 2019-06-08 11:45 | P.PN ---
Subjective Date of Service: 06/08/19 Primary Care Provider: Dr Lieberman - ID and Dr Booth - Podiatry and Dr Bond - Surgery Chief Complaint: Right foot Wound infection Patient seen and examined at bedside with RN. Chart reviewed. Case discussed with ID and it is general surgery at this time. Pending L tach placement Review of Systems 10-point ROS is otherwise unremarkable Physical Examination - Vital Signs Temperature: 97.1 F Blood Pressure: 130/60 Pulse: 63 Respirations: 16 Pulse Ox (%): 99 - Physical Exam General: Alert, In no apparent distress HEENT: Atraumatic, PERRLA, EOMI Neck: Supple, JVD not distended Respiratory: Clear to auscultation bilaterally, Normal air movement Cardiovascular: Regular rate/rhythm, Normal S1 S2 Gastrointestinal: Normal bowel sounds, No tenderness Musculoskeletal: No tenderness Integumentary: No rashes Neurological: Normal speech, Normal tone, Normal affect Lymphatics: No axilla or inguinal lymphadenopathy - Studies Medications List Reviewed: Yes Assessment And Plan - Current Problems (Diagnosis) (1) Cellulitis Current Visit: No Status: Acute Plan: Right leg Cellulitis 2.2 to Right diabetic Ulcer -On IV vanc and Zosyn -wound culture + for MRSA -ID consulted. Appreciated Reccs. -MRI + for osteomyelitis of the right foot -Will need 6 week of IV Vanc and zosyn Qualifiers: Site of cellulitis: extremity Site of cellulitis of extremity: lower extremity Laterality: right Qualified Code(s): L03.115 - Cellulitis of right lower limb (2) Diabetic foot ulcer Current Visit: No Status: Acute Plan: Right sided Diabetic Foot ulcer with Worsening. -Purulent DC and foul odor -On IV Vanc and cefepime -Foot MRI + for Osteomyelitis -Wound Culture + for MRSA -ID and [facility] consulted. Appreciated Reccs Qualifiers: Diabetic foot ulcer location: toe Diabetes mellitus type: type 2 Laterality: right Non-pressure ulcer stage: with necrosis of muscle Qualified Code(s): E11.621 - Type 2 diabetes mellitus with foot ulcer; L97.513 - Non-pressure chronic ulcer of other part of right foot with necrosis of muscle (3) CAD (coronary artery disease) Onset Date: 05/26/16 Current Visit: No Status: Chronic Qualifiers: Coronary Disease-Associated Artery/Lesion type: [place] artery [place] vs. transplanted heart: [place] heart Associated angina: without angina Qualified Code(s): I25.10 - Atherosclerotic heart disease of [place] coronary artery without angina pectoris (4) HTN (hypertension) Onset Date: 05/26/16 Current Visit: No Status: Chronic Qualifiers: Hypertension type: essential hypertension (5) Hyperlipidemia Onset Date: 09/05/18 Current Visit: No Status: Chronic Qualifiers: Hyperlipidemia type: mixed hyperlipidemia (6) Peripheral vascular disease due to secondary diabetes Current Visit: No Status: Chronic (7) Type 2 diabetes mellitus with foot ulcer Current Visit: No Status: Chronic Qualifiers: Discharge Plan: LTAC Plan to discharge in: Greater than 2 days - Code Status/Comfort Care Code Status Assessed: Yes Critical Care: No
[2019-06-08] MEDS: TRAMADOL HCL 50 MG TAB PO PRN ×2 (16:46→22:03)
[2019-06-08] MEDS: VANCOMYCIN 1.25 GM in NA CHLORIDE 0.9% 250 ML IVPB SCH (18:28)
[2019-06-08] MEDS: ATORVASTATIN 10 MG TAB PO SCH (22:04)
[2019-06-09] MEDS: PIPER/TAZO/NS 3.375gm 3.375 GM/100 ML BAG IVPB SCH ×3 (01:11→16:09)
[2019-06-09] MEDS: INSULIN -REGULAR HUMAN 50 UNIT/0.5 ML ML SQ SCH ×4 (07:30→21:26)
[2019-06-09] MEDS: MEDIHONEY 44 ML TOPICAL TUBE TOP SCH (09:00)
[2019-06-09] MEDS: DOCUSATE NA 100 MG CAP PO SCH (09:27)
[2019-06-09] MEDS: PREGABALIN 75 MG CAP PO SCH ×2 (09:27→21:25)
[2019-06-09] MEDS: FUROSEMIDE 40 MG TABLET PO SCH (09:27)
[2019-06-09] MEDS: METOPROLOL TAR 50 MG TAB PO SCH ×2 (09:27→21:25)
--- NOTE | 2019-06-09 11:52 | P.PN ---
Subjective Date of Service: 06/09/19 Primary Care Provider: Dr Lieberman - ID and Dr Booth - Podiatry and Dr Bond - Surgery Chief Complaint: Right foot Wound infection Patient seen and examined at bedside with RN. Chart reviewed. Case discussed with ID and it is general surgery at this time. Pending L tach placement Review of Systems 10-point ROS is otherwise unremarkable Physical Examination - Vital Signs Temperature: 97.2 F Blood Pressure: 120/60 Pulse: 62 Respirations: 16 Pulse Ox (%): 98 - Physical Exam General: Alert, In no apparent distress HEENT: Atraumatic, PERRLA, EOMI Neck: Supple, JVD not distended Respiratory: Clear to auscultation bilaterally, Normal air movement Cardiovascular: Regular rate/rhythm, Normal S1 S2 Gastrointestinal: Normal bowel sounds, No tenderness Musculoskeletal: No tenderness Integumentary: No rashes Neurological: Normal speech, Normal tone, Normal affect Lymphatics: No axilla or inguinal lymphadenopathy - Studies Medications List Reviewed: Yes Assessment And Plan - Current Problems (Diagnosis) (1) Cellulitis Current Visit: No Status: Acute Plan: Right leg Cellulitis 2.2 to Right diabetic Ulcer -On IV vanc and Zosyn -wound culture + for MRSA -ID consulted. Appreciated Reccs. -MRI + for osteomyelitis of the right foot -Will need 6 week of IV Vanc and zosyn Qualifiers: Site of cellulitis: extremity Site of cellulitis of extremity: lower extremity Laterality: right Qualified Code(s): L03.115 - Cellulitis of right lower limb (2) Diabetic foot ulcer Current Visit: No Status: Acute Plan: Right sided Diabetic Foot ulcer with Worsening. -Purulent DC and foul odor -On IV Vanc and cefepime -Foot MRI + for Osteomyelitis -Wound Culture + for MRSA -ID and [facility] consulted. Appreciated Reccs Qualifiers: Diabetic foot ulcer location: toe Diabetes mellitus type: type 2 Laterality: right Non-pressure ulcer stage: with necrosis of muscle Qualified Code(s): E11.621 - Type 2 diabetes mellitus with foot ulcer; L97.513 - Non-pressure chronic ulcer of other part of right foot with necrosis of muscle (3) CAD (coronary artery disease) Onset Date: 05/26/16 Current Visit: No Status: Chronic Qualifiers: Coronary Disease-Associated Artery/Lesion type: [place] artery [place] vs. transplanted heart: [place] heart Associated angina: without angina Qualified Code(s): I25.10 - Atherosclerotic heart disease of [place] coronary artery without angina pectoris (4) HTN (hypertension) Onset Date: 05/26/16 Current Visit: No Status: Chronic Qualifiers: Hypertension type: essential hypertension (5) Hyperlipidemia Onset Date: 09/05/18 Current Visit: No Status: Chronic Qualifiers: Hyperlipidemia type: mixed hyperlipidemia (6) Peripheral vascular disease due to secondary diabetes Current Visit: No Status: Chronic (7) Type 2 diabetes mellitus with foot ulcer Current Visit: No Status: Chronic Qualifiers:
[2019-06-09] MEDS: VANCOMYCIN 1.25 GM in NA CHLORIDE 0.9% 250 ML IVPB SCH (18:06)
[2019-06-09] MEDS: ATORVASTATIN 10 MG TAB PO SCH (21:25)
[2019-06-09] MEDS: TRAMADOL HCL 50 MG TAB PO PRN (21:29)
[2019-06-09 22:51] VITALS: O2SAT 96
[2019-06-10] MEDS: PIPER/TAZO/NS 3.375gm 3.375 GM/100 ML BAG IVPB SCH ×2 (00:46→09:56)
[2019-06-10 05:29] VITALS: BMI 24.6
[2019-06-10] MEDS: INSULIN -REGULAR HUMAN 50 UNIT/0.5 ML ML SQ SCH ×2 (07:30→12:54)
[2019-06-10] MEDS: MEDIHONEY 44 ML TOPICAL TUBE TOP SCH (09:00)
[2019-06-10] MEDS: PREGABALIN 75 MG CAP PO SCH ×2 (09:00→13:02)
[2019-06-10] MEDS: FUROSEMIDE 40 MG TABLET PO SCH (09:57)
[2019-06-10] MEDS: DOCUSATE NA 100 MG CAP PO SCH (09:57)
[2019-06-10] MEDS: METOPROLOL TAR 50 MG TAB PO SCH (09:57)
--- NOTE | 2019-06-10 12:59 | P.DS ---
Admission Date: 06/04/19 Discharge Date: 06/10/19 Primary Care Provider: Dr Lieberman - ID and Dr Booth - Podiatry and Dr Bond - Surgery Disposition: ROUTINE DISCHARGE Discharge Condition: GOOD Reason for Admission: Right foot Wound infection Consultations: Infectious disease General surgery - Problems (1) Cellulitis Current Visit: No Status: Acute Qualifiers: Site of cellulitis: extremity Site of cellulitis of extremity: lower extremity Laterality: right Qualified Code(s): L03.115 - Cellulitis of right lower limb (2) Diabetic foot ulcer Current Visit: No Status: Acute Qualifiers: Diabetic foot ulcer location: toe Diabetes mellitus type: type 2 Laterality: right Non-pressure ulcer stage: with necrosis of muscle Qualified Code(s): E11.621 - Type 2 diabetes mellitus with foot ulcer; L97.513 - Non-pressure chronic ulcer of other part of right foot with necrosis of muscle (3) CAD (coronary artery disease) Onset Date: 05/26/16 Current Visit: No Status: Chronic Qualifiers: Coronary Disease-Associated Artery/Lesion type: [place] artery [place] vs. transplanted heart: [place] heart Associated angina: without angina Qualified Code(s): I25.10 - Atherosclerotic heart disease of [place] coronary artery without angina pectoris (4) HTN (hypertension) Onset Date: 05/26/16 Current Visit: No Status: Chronic Qualifiers: Hypertension type: essential hypertension (5) Hyperlipidemia Onset Date: 09/05/18 Current Visit: No Status: Chronic Qualifiers: Hyperlipidemia type: mixed hyperlipidemia (6) Peripheral vascular disease due to secondary diabetes Current Visit: No Status: Chronic (7) Type 2 diabetes mellitus with foot ulcer Current Visit: No Status: Chronic Qualifiers: Brief History of Present Illness: Patient is a 69 yo F with PMHx of DM2, PVD, HTN, CHF who was recently discharged from the Hospital for diabetic foot wound on the left. Patient completed IV antibiotic therapy and has been following up with infectious disease at the wound healing Center. Patient states that the wound on the right plantar area has been worsening and appears to be infected. She does have a specialized boot that she is wearing for both legs. Patient was also seen at the [facility] for arterial disease however no intervention was done due to her infection in the past. Patient was seen by Dr. Lieberman today at the wound healing Center and was sent to ED for further evaluation and treatment. Patient reports drainage with foul odor. No fever chills. Patient's symptoms are constant moderate progressively worsening. Her previous wound cultures grew out multiple drug-resistant bacteria including Pseudomonas enterococcus and MRSA. Hospital Course: Overall during the hospital stay patient remained stable Patient was initially admitted to the hospital for right foot cellulitis. Patient had blood culture wound culture done here in the hospital. Was started on IV antibiotics here in the hospital. Patient had a foot MRI done here which was consistent with osteomyelitis of the right foot. Infectious disease was consulted who recommended patient be transferred to a long-term acute care facility for IV antibiotics and wound care. Patient chose to who go to [facility]. Once accepted there was transferred there under stable condition. Wound cultures were positive for MRSE and thus patient was continued on IV vancomycin and Zosyn. Patient will need total of 6 weeks of IV antibiotics to be taken. General surgery was consulted while patient was here in the hospital as well agreed with the plan as well. Patient does have a history of recurrent diabetic ulcers due to poor vasculature. Patient currently is not a surgical candidate for stent placement per her vascular surgeon in [place]. Patient advised to follow up with vascular surgeon post IV antibiotics. Patient will be continued to be followed by infectious disease at the long-term acute care facility. Patient will also follow up with general surgery. Patient will also follow up with wound care once discharged from there. Patient does have off- loading boots for both lower extremity which she was encouraged to use upon discharge from the long-term acute care facility. Vital Signs/Physical Exam: Temp Pulse Resp BP Pulse Ox 97.0 F 54 18 118/55 L 98 06/10/19 08:00 06/10/19 09:57 06/10/19 08:00 06/10/19 09:57 06/10/19 08:00 General: Alert, In no apparent distress HEENT: Atraumatic, PERRLA, EOMI Neck: Supple, JVD not distended Respiratory: Clear to auscultation bilaterally, Normal air movement Cardiovascular: Regular rate/rhythm, Normal S1 S2 Gastrointestinal: Normal bowel sounds, No tenderness Musculoskeletal: No tenderness Integumentary: No rashes Neurological: Normal speech, Normal tone, Normal affect Lymphatics: No axilla or inguinal lymphadenopathy Laboratory Data at Discharge: WBC 7.5 K/uL (4.3-10.9) 06/08/19 05:00 Hgb 8.3 g/dL (12.0-15.0) L 06/08/19 05:00 Hct 24.7 % (36.0-45.0) L 06/08/19 05:00 Plt Count 362 K/uL (152-406) 06/08/19 05:00 PT 15.1 SECONDS (9.5-12.5) H 06/04/19 16:00 INR 1.29 06/04/19 16:00 Sodium 142 mmol/L (136-145) 06/08/19 05:00 Potassium 4.1 mmol/L (3.5-5.1) 06/08/19 05:00 BUN 28 mg/dL (7-18) H 06/08/19 05:00 Creatinine 1.02 mg/dL (0.55-1.3) 06/08/19 05:00 Glucose 131 mg/dL (74-106) H 06/08/19 05:00 Phosphorus 4.2 mg/dL (2.5-4.9) 06/06/19 04:25 Magnesium 1.9 mg/dL (1.8-2.4) 06/04/19 16:00 Total Bilirubin 0.3 mg/dL (0.2-1.0) 06/08/19 05:00 AST 12 U/L (15-37) L 06/08/19 05:00 ALT 12 U/L (12-78) 06/08/19 05:00 Alkaline Phosphatase 118 U/L (45-117) H 06/08/19 05:00 Home Medications: Furosemide [Lasix*] 40 mg PO DAILY 05/11/16 Metformin HCl [Metformin ER Osmotic] 1,000 mg PO BID 05/11/16 Metoprolol Tartrate [Lopressor*] 50 mg PO BID 05/11/16 Pravastatin [Pravachol*] 40 mg PO DAILY 05/11/16 Naproxen [Naprosyn] 500 mg PO BID 11/13/17 Pregabalin [Lyrica*] 75 mg PO BID 09/04/18 Clopidogrel Bisulfate [Plavix] 75 tab PO DAILY 01/19/19 Insulin Glargine/Lixisenatide [Soliqua 100 Unit-33 Mcg/ml Pen] 26 unit SQ DAILY 01/20/19 Diet: Regular Activity: Ad riccardo
[2019-06-10 13:47] VITALS: BP 137/65; TEMP 97.5
--- NOTE | 2019-06-10 14:50 | PN ---
Subjective: Patient is sitting in bed, not in any acute cardiopulmonary distress. Objective: Vital Signs: Temperature 97, pulse 54, respirations 18, blood pressure 118/55. Lungs: Basal crackles. Heart: S1, S2. Regular. Abdomen: Soft, nontender. Bowel sounds present. Extremity: Right foot wound noted. Left foot woun d noted. Laboratory Data: Shows WBC 7.5, hemoglobin 8.3, platelets 362. Chemistry shows sodium 142, potassiu m 4.1, chloride 108, bicarb 28, BUN 28, creatinine 1. Glucose is running in 300s. Current Antibiotic: Includes Zosyn and vancomycin. MRSA from the left foot wound culture is positive. Assessment And Plan: Methicillin-resistant Staphylococcus aureus, foot infection, diabetic foot ulce r, peripheral neuropathy with peripheral vascular disease. Continue antibiotic and wound care. We w ill follow the patient as needed. Patient to be transferred to long-term acute care for IV antibiotic and wound care. HOLLIE/MODShweta Voice ID: [id number] Report ID: [id number]
== END 2019-06-10 15:15 | disposition home or self-care (01) | DRG 638 ==
LOC: ER 15:23 → ERHOLD 16:25 → 2ND 20:48
PROVIDERS: ADMIT Family Medicine; ATTEND Family Medicine
PROC: 02HV33Z Insertion of Infusion Device into Superior Vena Cava, Percutaneous Approach (ICD-10-PCS; principal; 2019-06-05)
DX: E11.69 Type 2 diabetes mellitus with other specified complication (principal); L03.115 Cellulitis of right lower limb; M86.8X7 Other osteomyelitis, ankle and foot; B95.62 Methicillin resistant Staphylococcus aureus infection as the cause of diseases classified elsewhere; E11.621 Type 2 diabetes mellitus with foot ulcer; I25.10 Atherosclerotic heart disease of native coronary artery without angina pectoris; E78.2 Mixed hyperlipidemia; E11.51 Type 2 diabetes mellitus with diabetic peripheral angiopathy without gangrene; I10 Essential (primary) hypertension; Z95.1 Presence of aortocoronary bypass graft; I11.0 Hypertensive heart disease with heart failure; I50.9 Heart failure, unspecified
CPT/HCPCS: 36415; 71045; 80048; 80053; 80076; 80202; 81003; 82962; 83735; 83880; 84100; 84484; 85025; 85610; 85652; 87040; 87070; 87077; 87086; 87088; 87186; 87205; 93005; 96365; 96375; 99285; J0692; J2543; J7030

== ENCOUNTER 2019-09-09 16:53 | Inpatient (IN) | payer OTHER ==
--- OUTSIDE RECORDS SUMMARY | 2019-09-09 16:55 | XMS REPORT ---
[...] BD Pen Needle [facility] 81724615234 32G X 4 MM SQ May 11, Active as directed Carolina U/F once a day 2017 Results No Known Results Summary Purpose eClinicalWorks Submission
--- OUTSIDE RECORDS SUMMARY | 2019-09-09 16:55 | XMS REPORT ---
[...] Date Status Dosage System Date One Touch [facility] 907681149698 1 In Vitro Jul 09December Active as directed Ultra Test twice daily 2017 Strips Results No Known Results Summary Purpose eClinicalWorks Submission
--- OUTSIDE RECORDS SUMMARY | 2019-09-09 16:55 | XMS REPORT ---
:1950 [facility] Address [address] [place] [address] [address] [place] [address] Care Team Providers Name Role Phone Unavailable Unavailable Unavailable Problems This patient has no known problems. Allergies, Adverse Reactions, Alerts This patient has no known allergies or adverse reactions. Medications This patient has no known medications.
--- OUTSIDE RECORDS SUMMARY | 2019-09-09 16:55 | XMS REPORT ---
[...] Start End Date Status Dosage Date Naproxen [facility] 58062551193 500 MG Orally Active 1 tablet Twice a day Lyrica [facility] 42757804747 75 MG Orally Apr 23, Active 1 capsule Twice a day 2017 Victoza [facility] 57123153305 18 MG/3ML March 19, Sep 15, Active 1.2 mg Subcutaneous 2017 2018 daily Results No Known Results Summary Purpose eClinicalWorks Submission
--- OUTSIDE RECORDS SUMMARY | 2019-09-09 16:55 | XMS REPORT ---
[...] End Status Dosage System Date Date Santyl [facility] 49170091695 250 UNIT/GM Apr 24, May 08, Active 1 application Externally Once 2017 2017 to affected a day area Lyrica ND 83959734215 75 MG Orally Apr 23, Active 1 capsule Twice a day 2017 Metformin HCl ND 34460820117 1000 MG Orally Active 1 tablet with Twice a day a meal Victoza [facility] 84769844547 18 MG/3ML March 19Sep 15, Active 1.2 mg Subcutaneous 2017 2017 daily Pravastatin ND 46742515851 40 MG Orally Active 1 tablet Sodium Once a day Potassium ND 00757493262 20 MEQ Orally Active 1 tablet with Chloride Jackeline Once a day food ER Metoprolol ND 04623301068 50 MG Orally Active 1 tablet with Tartrate Twice a day food Furosemide ND 95957200931 40 MG Orally Active 1 tablet Once a day Naproxen ND 57508636363 500 MG Orally Active 1 tablet Twice a day Clopidogrel ND 90004678419 75 MG Orally Active 1 tablet Bisulfate Once a day Results No Known Results Summary Purpose eClinicalWorks Submission
--- OUTSIDE RECORDS SUMMARY | 2019-09-09 16:55 | XMS REPORT ---
[...] End Status Dosage System Date Date Glimepiride [facility] 84111005016 4 MG Orally March Inactive 1 tablet twice a day 2017 breakfast or the first main meal of the day Augmentin [facility] 90490261757 250-62.5 MG/5ML March Active 1 tablet Orally QD x2wks 2017 [address] [facility] 35883162352 800-160 MG March Active 1 tablet Orally Twice a x2wks [address] [facility] 31776999417 40 MG Orally Active 1 tablet Sodium Once a day Metformin HCl ND 10762708350 1000 MG Orally Active 1 tablet Twice a day with a meal Clopidogrel [facility] 04958081843 75 MG Orally Active 1 tablet Bisulfate Once a day Potassium ND 47979116948 20 MEQ Orally Active 1 tablet Chloride Jackeline Once a day with food ER Metoprolol [facility] 45287508040 50 MG Orally Active 1 tablet Tartrate Twice a day with food Furosemide [facility] 42920376761 40 MG Orally Active 1 tablet Once a day Cleocin [facility] 72199179031 150 MG Orally March Active 2 capsules Once a day , x2wks [address] [facility] 47706618143 18 MG/3ML March 19Sep 15, Active 1.2 mg Subcutaneous 2017 [address] [facility] 41806248467 500 MG Orally Active 1 tablet Twice a day Results No Known Results Summary Purpose eClinicalWorks Submission
--- OUTSIDE RECORDS SUMMARY | 2019-09-09 16:55 | XMS REPORT ---
[...] System Date Date BD Pen Needle [facility] 11540888967 32G X 4 MM SQ May 11, Active as directed Carolina U/F once a day 2017 Results No Known Results Summary Purpose eClinicalWorks Submission
--- OUTSIDE RECORDS SUMMARY | 2019-09-09 16:55 | XMS REPORT ---
[...] Date Status Dosage System Date One Touch [facility] 379413337815 1 In Vitro Jul 09December Active as directed Ultra Test twice daily 2017 Strips Victoza [facility] 92540496433 18 MG/3ML Active 1.2 mg Subcutaneous daily Metformin HCl [facility] 96291800206 1000 MG Orally Active 1 tablet Twice a day with a meal Metoprolol [facility] 75305232889 50 MG Orally Active 1 tablet Tartrate Twice a day with food Clopidogrel ND 96680475474 75 MG Orally Active 1 tablet Bisulfate Once a day Naproxen ND 55210509993 500 MG Orally Active 1 tablet Twice a day Lyrica ND 97629414275 75 MG Orally Apr 23, Active 1 capsule Twice a day 2017 Potassium [facility] 03304022215 20 MEQ Orally Active 1 tablet Chloride Jackeline Once a day with food ER Pravastatin [facility] 98313275056 40 MG Orally Active 1 tablet Sodium Once a day Furosemide [facility] 12869247033 40 MG Orally Active 1 tablet Once a day One Touch ND 0 Lancet subq Jul 09, Active 1 lancet Delica Lancets twice daily 2017 BD Pen Needle [facility] 80224711317 32G X 4 MM SQ May 11, Active as directed Carolina U/F once a day 2017 Results No Known Results Summary Purpose eClinicalWorks Submission
--- OUTSIDE RECORDS SUMMARY | 2019-09-09 16:55 | XMS REPORT ---
[...] End Status Dosage System Date Date Naproxen [facility] 48043861594 500 MG Orally Active 1 tablet Twice a day Clopidogrel [facility] 27035749817 75 MG Orally Active 1 tablet Bisulfate Once a day Bactrim DS [facility] 94562765784 800-160 MG Active 1 tablet Orally Twice a day x2wks Augmentin [facility] 39603501311 250-62.5 MG/5ML Active 1 tablet Orally QD x2wks Pravastatin ND 66197292612 40 MG Orally Active 1 tablet Sodium Once a day Lyrica ND 06181063002 75 MG Orally Inactive 1 capsule Once a day Glimepiride ND 25806321246 4 MG Orally Active 1 tablet twice a day with breakfast or the first main meal of the day Cleocin ND 74075632805 150 MG Orally Active 2 capsules Once a day x2wks Furosemide [facility] 21738539218 40 MG Orally Active 1 tablet Once a day Potassium [facility] 31738123895 20 MEQ Orally Active 1 tablet Chloride Jackeline Once a day with food ER Metoprolol ND 02073546463 50 MG Orally Active 1 tablet Tartrate Twice a day with food Metformin HCl [facility] 11212754565 1000 MG Orally Active 1 tablet Twice a day with a meal Results No Known Results Summary Purpose eClinicalWorks Submission
--- OUTSIDE RECORDS SUMMARY | 2019-09-09 16:56 | XMS REPORT ---
[...] End Status Dosage System Date Date Metoprolol [facility] 15546316463 50 MG Orally Active 1 tablet Tartrate Twice a day with food Furosemide ND 92415623900 40 MG Orally Active 1 tablet Once a day Metformin HCl ND 49635057293 1000 MG Orally Active 1 tablet Twice a day with a meal Clopidogrel ND 02876097093 75 MG Orally Active 1 tablet Bisulfate Once a day Pravastatin ND 46046874942 40 MG Orally Active 1 tablet Sodium Once a day Potassium [facility] 36401283337 20 MEQ Orally Active 1 tablet Chloride Jackeline Once a day with food ER BD Pen Needle [facility] 81589683620 32G X 4 MM SQ May 11, Active as directed Carolina U/F once a day 2017 Naproxen ND 32770822674 500 MG Orally Active 1 tablet Twice a day Victoza ND 24743198857 18 MG/3ML Active 1.2 mg Subcutaneous daily Lyrica ND 34631042914 75 MG Orally Apr 23, Active 1 capsule Twice a day 2017 Results No Known Results Summary Purpose eClinicalWorks Submission
--- OUTSIDE RECORDS SUMMARY | 2019-09-09 16:56 | XMS REPORT ---
[...] Date Status Dosage System Date Clopidogrel ND 19515882115 75 MG Orally Active 1 tablet Bisulfate Once a day Furosemide ND 40244705194 40 MG Orally Active 1 tablet Once a day Lyrica ND 51403297644 75 MG Orally Apr 23, Active 1 capsule Twice a day 2017 Potassium ND 18829781435 20 MEQ Orally Active 1 tablet Chloride Jackeline Once a day with food ER Pravastatin ND 63121595919 40 MG Orally Active 1 tablet Sodium Once a day Metoprolol ND 35271683405 50 MG Orally Active 1 tablet Tartrate Twice a day with food Metformin HCl ND 35440861668 1000 MG Orally Active 1 tablet Twice a day with a meal One Touch [facility] 972464090165 1 In Vitro Jul 09December Active as directed Ultra Test twice daily 2018 2018 Strips One Touch [facility] 0 Lancet subq Jul 09, Active 1 lancet Delica Lancets twice daily 2017 Results No Known Results Summary Purpose eClinicalWorks Submission
--- OUTSIDE RECORDS SUMMARY | 2019-09-09 16:56 | XMS REPORT ---
[...] Medications Results No Known Results Summary Purpose [facility] Submission
[2019-09-09 18:12] LABS: Absolute Lymphocytes (CBC) 1.2 K/uL (0.7-4.9); Basophils % 0.6 % (0-1.3); Hematocrit 28.1 % (36.0-45.0); MPV 8.3 fL (7.6-11.3); RBC Red Blood Cell Count 3.61 M/uL (3.86-4.86)
[2019-09-09 18:32] LABS: Albumin 2.9 g/dL (3.4-5.0); Bilirubin Total 0.4 mg/dL (0.2-1.0); Potassium 4.5 mmol/L (3.5-5.1); Protein, Total 7.7 g/dL (6.4-8.2)
--- NOTE | 2019-09-09 18:49 | RAD REPORT ---
EXAM DESCRIPTION: RAD - Foot Right 3 View - 09/09/2019 6:32 pm CLINICAL HISTORY: Foot pain, soft tissue wound, foul odor COMPARISON: June 04 plain film and MRI imaging FINDINGS: There is been further bone loss in the fifth proximal phalanx and middle phalanx. Small re mnant distal phalanx present. Degenerative change involves the fifth metatarsal head without destruct flaca change. No bone destructive changes involving the first-fourth phalanges. No metatarsal destructive process. Tarsal bones show degenerative change. Patient has a pes planus configuration. There is a large plant ar spur. Ankle joint is not optimally imaged. It does appear to be bone loss in the dome of the talus . Advanced tibiotalar degenerative change present. Tarsal-metatarsal articulation show no suspicious findings. Transverse fracture is present at the base of the first metatarsal. No bone loss confirmed. Soft tissue edema is present. No air or foreign body in the soft tissues. IMPRESSION: Progressive osteomyelitis destructive changes involving the fifth toe. Transverse fracture at the base of the first metatarsal. No distraction or angulation. This is not cl early pathologic or secondary to osteomyelitis. Degenerative changes elsewhere in the foot without bone destructive change.
[2019-09-09] MEDS ORDERED: CLINDAMYCIN 900MG/D5W 900 MG/50 ML IVPB IV ONE (20:05)
--- NOTE | 2019-09-09 20:53 | ER ---
Nurse's Notes [facility] Name: Mildred Kelly Age: 69 yrs Sex: Female : 1950 Arrival Date: 09/09/2019 Time: 16:55 Bed 19 Private MD: Hiram Lieberman U Diagnosis: Osteomyelitis, right foot;Cellulitis of right lower limb-right foot Presentation: 09/09 17:11 Presenting complaint: Patient states: was seen by her nurse and they noted a foul sv odor to her right foot wound and called Dr Lieberman and told her to come to the ER. Transition of care: patient was not received from another setting of care. Onset of symptoms was September 09, 2019. Risk Assessment: Do you want to hurt yourself or someone else? Patient reports no desire to harm self or others. Initial Sepsis Screen: Does the patient meet any 2 criteria? No. Patient's initial sepsis screen is negative. Does the patient have a suspected source of infection? Yes: Skin breakdown/wound. Care prior to arrival: None. 17:11 Method Of Arrival: Ambulatory sv 17:11 Acuity: JANE 3 sv Historical: - Allergies: 17:12 Bactrim; sv 17:12 Levaquin; sv - PMHx: 17:12 CHF; Hyperlipidemia; Diabetes - NIDDM; Hypertension; neuropathy; sv - PSHx: 17:12 Triple Bypass; sv - Immunization history:: Adult Immunizations up to date. - Social history:: Smoking status: Patient/guardian denies using tobacco. - Ebola Screening: : Patient negative for fever greater than or equal to 101.5 degrees Fahrenheit, and additional compatible Ebola Virus Disease symptoms Patient denies exposure to infectious person. Screenin:36 Abuse screen: Denies threats or abuse. Nutritional screening: No deficits noted. em Tuberculosis screening: No symptoms or risk factors identified. Fall Risk None identified. Assessment: 17:34 General: Appears in no apparent distress. comfortable, Behavior is calm, cooperative, em Denies fever. Pain: Complains of pain in right foot Pain currently is 7 out of 10 on a pain scale. Neuro: Level of Consciousness is awake, alert, obeys commands, Oriented to person, place, time, situation, Appropriate for age. Cardiovascular: Capillary refill < 3 seconds Patient's skin is warm and dry. Respiratory: Airway is patent Respiratory effort is even, unlabored, Respiratory pattern is regular, symmetrical. Derm: Skin is intact, is healthy with good turgor, Wound noted lateral side of right foot and ball of right foot. Musculoskeletal: Capillary refill < 3 seconds, Range of motion: intact in all extremities. 17:36 General: The previous assessment is accurate. Call light remains within reach. . 18:22 Reassessment: Patient appears in no apparent distress at this time. Patient is alert, em oriented x 3, equal unlabored respirations, skin warm/dry/pink. currently refuses pain medication at this time, provider notified. 19:15 Reassessment: Patient appears in no apparent distress at this time. Patient and/or family updated on plan of care and expected duration. Pain level reassessed. Patient is alert, oriented x 3, equal unlabored respirations, skin warm/dry/pink. 20:17 Reassessment: Patient appears in no apparent distress at this time. No changes from previously documented assessment. Patient and/or family updated on plan of care and expected duration. Pain level reassessed. Patient is alert, oriented x 3, equal unlabored respirations, skin warm/dry/pink. 21:45 Reassessment: Patient appears in no apparent distress at this time. No changes from previously documented assessment. Patient and/or family updated on plan of care and expected duration. Pain level reassessed. Patient is alert, oriented x 3, equal unlabored respirations, skin warm/dry/pink. Dr Farr at bedside explaining POC need for admit. 22:55 Reassessment: Patient appears in no apparent distress at this time. No changes from previously documented assessment. Patient and/or family updated on plan of care and expected duration. Pain level reassessed. Patient is alert, oriented x 3, equal unlabored respirations, skin warm/dry/pink. 23:33 Reassessment: Patient appears in no apparent distress at this time. No changes from previously documented assessment. Patient and/or family updated on plan of care and expected duration. Pain level reassessed. Patient is alert, oriented x 3, equal unlabored respirations, skin warm/dry/pink. Vital Signs: 17:12 BP 140 / 94; Pulse 84; Resp 18; Temp 97.5; Pulse Ox 100% ; Weight 65.77 kg; Height 5 sv ft. 4 in. (162.56 cm); 18:30 BP 111 / 55; Pulse 82; Resp 18; Pulse Ox 99% on R/A; em 19:30 BP 108 / 58; Pulse 80; Resp 18; Pulse Ox 100% ; Pain 0/10; wh 20:15 BP 107 / 54; Pulse 79; Resp 18; Pulse Ox 99% ; Pain 0/10; wh 21:50 BP 114 / 58; Pulse 76; Resp 18; Pulse Ox 96% ; Pain 0/10; wh 23:15 BP 125 / 60; Pulse 72; Resp 18; Pulse Ox 99% on R/A; wh 17:12 Body Mass Index 24.89 (65.77 kg, 162.56 cm) sv ED Course: 16:55 Patient arrived in ED. as 16:55 Hiram Lieberman MD is Private Physician. as 17:07 Carmelo Patel LVN is Primary Nurse. em 17:12 Triage completed. sv 17:12 Arm band placed on. sv 17:24 Aditya Rosario NP is PHCP. pm1 17:24 Ori Baptiste MD is Attending Physician. pm1 17:36 Patient has correct armband on for positive identification. Bed in low position. Call em light in reach. 18:32 Foot Right 3 View XRAY In Process Unspecified. EDMS 20:51 Sai Farr MD is Hospitalizing Provider. pm1 23:25 No provider procedures requiring assistance completed. Patient admitted, IV remains in wh place. Administered Medications: 20:11 Drug: Clindamycin 900 mg Route: IVPB; Infused Over: 30 mins; Site: right antecubital; 21:03 Follow up: Response: No adverse reaction; IV Status: Completed infusion 21:03 Drug: Zosyn 3.375 grams Route: IVPB; Infused Over: 60 mins; Site: right antecubital; 22:05 Follow up: Response: No adverse reaction; IV Status: Completed infusion 22:06 Not Given (Patient Refused): morphine 4 mg IVP once; RASS on ADMIN: Combtv4, Very wh Agttd3, Agttd2, Rstlss1, AlertClm0, Drwsy-1, Lt Sdtn-2, Mod Sdtn-3, Dp Sdtn-4, UnArsble-5 22:06 Not Given (Patient Refused): Zofran 4 mg IVP once; over 2 minutes 22:06 Drug: vancoMYCIN 1 grams Route: IVPB; Infused Over: 2 hrs; Site: right antecubital; 23:52 Follow up: Response: No adverse reaction; IV Status: Completed infusion Outcome: 20:52 Decision to Hospitalize by Provider. pm1 23:26 Admitted to Med/surg accompanied by tech, via wheelchair, room 219, with chart, Report called to Shara WEST 23:26 Condition: stable 23:26 Instructed on the need for admit. 23:52 Patient left the ED. Signatures: Dispatcher [employer] Pamela Ferguson, RN RN Carmelo Aldana, DEALERSHIP MANAGER DEALERSHIP MANAGER Veronica Castellon Shelby, RN RN ss Aditya Rosario, PRACTICAL NURSING INSTRUCTOR PRACTICAL NURSING INSTRUCTOR pm1 Lorenzo Madera
--- NOTE | 2019-09-09 20:54 | EDPHYS ---
Physician Documentation [facility] Name: Mildred Kelly Age: 69 yrs Sex: Female : 1950 Arrival Date: 09/09/2019 Time: 16:55 Bed 19 Private MD: Hiram Lieberman U ED Physician Ori Baptiste HPI: 09/09 17:44 This 69 yrs old Female presents to ER via Ambulatory with complaints of Foot pm1 Pain - wound check. 17:44 The patient presents with pain, swelling, foul odor coming from her right foot. pm1 17:44 The complaints affect the lateral side of right foot. Associated signs and symptoms: pm1 Pertinent positives: swelling, Pain along lateral aspect of right foot from 5th toe to heel, Pertinent negatives fever. patient is not currently taking any antibiotic therapy. Patient was seen by home health nurse and she noticed a foul odor from her foot with complaints of pain and swelling. Instructed to report to the ER by Dr. Lieberman for further evaluation and treatment. Historical: - Allergies: 17:12 Bactrim; sv 17:12 Levaquin; sv - PMHx: 17:12 CHF; Hyperlipidemia; Diabetes - NIDDM; Hypertension; neuropathy; sv - PSHx: 17:12 Triple Bypass; sv - Immunization history:: Adult Immunizations up to date. - Social history:: Smoking status: Patient/guardian denies using tobacco. - Ebola Screening: : Patient negative for fever greater than or equal to 101.5 degrees Fahrenheit, and additional compatible Ebola Virus Disease symptoms Patient denies exposure to infectious person. ROS: 17:44 Constitutional: Negative for fever, chills, and weight loss, Eyes: Negative for injury, pm1 pain, redness, and discharge, ENT: Negative for injury, pain, and discharge, Neck: Negative for injury, pain, and swelling, Cardiovascular: Negative for chest pain, palpitations, and edema, Respiratory: Negative for shortness of breath, cough, wheezing, and pleuritic chest pain, Abdomen/GI: Negative for abdominal pain, nausea, vomiting, diarrhea, and constipation, Back: Negative for injury and pain. 17:44 Neuro: Negative for headache, weakness, numbness, tingling, and seizure. 17:44 MS/extremity: Positive for pain, swelling, tenderness, of the lateral side of right foot. 17:44 Skin: Positive for ulceration, of the ball of right foot and between 4th and 5th right toes. Exam: 17:44 Constitutional: This is a well developed, well nourished patient who is awake, alert, pm1 and in no acute distress. Head/Face: Normocephalic, atraumatic. Neck: Trachea midline, no thyromegaly or masses palpated, and no cervical lymphadenopathy. Supple, full range of motion without nuchal rigidity, or vertebral point tenderness. No Meningismus. Chest/axilla: Normal chest wall appearance and motion. Nontender with no deformity. No lesions are appreciated. Cardiovascular: Regular rate and rhythm with a normal S1 and S2. No gallops, murmurs, or rubs. Normal PMI, no JVD. No pulse deficits. Respiratory: Lungs have equal breath sounds bilaterally, clear to auscultation and percussion. No rales, rhonchi or wheezes noted. No increased work of breathing, no retractions or nasal flaring. Abdomen/GI: Soft, non-tender, with normal bowel sounds. No distension or tympany. No guarding or rebound. No evidence of tenderness throughout. Back: No spinal tenderness. No costovertebral tenderness. Full range of motion. 17:44 MS/ Extremity: Pulses equal, no cyanosis. Neurovascular intact. Full, normal range of motion. 17:44 Skin: Appearance: normal except for affected area, abscess, not appreciated, cellulitis, that is moderate, on the lateral side of right foot and right 5th toe. 17:44 Neuro: Orientation: is normal, Motor: is normal, moves all fours. Vital Signs: 17:12 BP 140 / 94; Pulse 84; Resp 18; Temp 97.5; Pulse Ox 100% ; Weight 65.77 kg; Height 5 sv ft. 4 in. (162.56 cm); 18:30 BP 111 / 55; Pulse 82; Resp 18; Pulse Ox 99% on R/A; em 19:30 BP 108 / 58; Pulse 80; Resp 18; Pulse Ox 100% ; Pain 0/10; wh 20:15 BP 107 / 54; Pulse 79; Resp 18; Pulse Ox 99% ; Pain 0/10; wh 21:50 BP 114 / 58; Pulse 76; Resp 18; Pulse Ox 96% ; Pain 0/10; wh 23:15 BP 125 / 60; Pulse 72; Resp 18; Pulse Ox 99% on R/A; wh 17:12 Body Mass Index 24.89 (65.77 kg, 162.56 cm) sv MDM: 17:24 Patient medically screened. pm1 19:03 Data reviewed: vital signs. Data interpreted: Pulse oximetry: on room air is 99 %. pm1 Interpretation: normal. 19:45 Counseling: I had a detailed discussion with the patient and/or guardian regarding: the pm1 historical points, exam findings, and any diagnostic results supporting the discharge/admit diagnosis, lab results, radiology results, the need for further work-up and treatment in the hospital. 19:45 Physician consultation: Hiram Lieberman MD was called at 19:05, left message. pm1 19:50 Refusal of service: The patient/guardian displays adequate decision making capability pm1 and despite a detailed discussion of alternatives, benefits, risks, and consequences refuses: Admission to the hospital for further work-up and treatment. 20:35 ED course: Patient changed her mind and would like to stay in the hospital. pm1 20:36 Physician consultation: Hiram Lieberman MD was called at 20:38, left message. pm1 20:57 Physician consultation: Sai Farr MD was called at 20:57, was contacted at 20:57, pm1 regarding admission, patient's condition, and will see patient in ED. 21:42 Physician consultation: Hiram Lieberman MD was contacted at 21:42, regarding consult, pm1 patient's condition, and will see patient tomorrow. 09/09 17:43 Order name: Procalcitonin; Complete Time: 19:00 pm1 09/09 17:43 Order name: Lactate; Complete Time: 18:41 pm1 09/09 17:43 Order name: CBC with Diff; Complete Time: 18:32 pm1 09/09 17:43 Order name: CMP; Complete Time: 18:41 pm1 09/09 17:43 Order name: Blood Culture Adult (2) pm1 09/09 17:49 Order name: ESR; Complete Time: 18:41 pm1 09/09 17:49 Order name: CRP; Complete Time: 18:32 pm1 09/09 19:01 Order name: Wound Culture pm1 09/09 22:09 Order name: Urinalysis EDMS 09/09 22:09 Order name: CBC with Automated Diff EDMS 09/09 22:09 Order name: CBC with Automated Diff EDMS 09/09 22:09 Order name: Comprehensive Metabolic Panel EDMS 09/09 22:09 Order name: Comprehensive Metabolic Panel EDMS 09/09 22:09 Order name: Magnesium EDMS 09/09 17:49 Order name: Foot Right 3 View XRAY; Complete Time: 19:00 pm1 09/09 22:08 Order name: CONS Physician Consult EDMS 09/09 22:08 Order name: Consistent Carb (ADA) 1800 Chris EDMS 09/09 22:09 Order name: Magnesium EDMS 09/09 22:09 Order name: Phosphorus EDMS 09/09 22:09 Order name: Phosphorus EDMS 09/09 22:12 Order name: MRA Foot Right EDMS Administered Medications: 20:11 Drug: Clindamycin 900 mg Route: IVPB; Infused Over: 30 mins; Site: right antecubital; 21:03 Follow up: Response: No adverse reaction; IV Status: Completed infusion 21:03 Drug: Zosyn 3.375 grams Route: IVPB; Infused Over: 60 mins; Site: right antecubital; 22:05 Follow up: Response: No adverse reaction; IV Status: Completed infusion 22:06 Not Given (Patient Refused): morphine 4 mg IVP once; RASS on ADMIN: Combtv4, Very wh Agttd3, Agttd2, Rstlss1, AlertClm0, Drwsy-1, Lt Sdtn-2, Mod Sdtn-3, Dp Sdtn-4, UnArsble-5 22:06 Not Given (Patient Refused): Zofran 4 mg IVP once; over 2 minutes 22:06 Drug: vancoMYCIN 1 grams Route: IVPB; Infused Over: 2 hrs; Site: right antecubital; 23:52 Follow up: Response: No adverse reaction; IV Status: Completed infusion Disposition: 09/09/19 20:52 Hospitalization ordered by Sai Farr for Inpatient Admission. Preliminary diagnosis are Osteomyelitis, right foot, Cellulitis of right lower limb - right foot. - Bed requested for Telemetry/MedSurg (Inpatient). - Status is Inpatient Admission. - Condition is Stable. - Problem is new. - Symptoms are unchanged. UTI on Admission? No Addendum: 09/11/2019 07:58 Co-signature as Attending Physician, Ori Baptiste MD I agree with the assessment and [facility] plan of care. Signatures: Dispatcher [employer] Pamela Ferguson, RN RN Ori Casarez MD MD [facility] Jorge, Carmelo, WEB SITE DEVELOPER WEB SITE DEVELOPER em Aditya Rosario, WAFER PRODUCTION WORKER WAFER PRODUCTION WORKER pm1 [facility], [facility]: (The following items were deleted from the chart) 09/09 22:14 20:52 Hospitalization Ordered by Sai Farr MD for Inpatient Admission. Preliminary oh diagnosis is Osteomyelitis, right foot; Cellulitis of right lower limb - right foot. Bed requested for Telemetry/MedSurg (Inpatient). Status is Inpatient Admission. Condition is Stable. Problem is new. Symptoms are unchanged. UTI on Admission? No. pm1 23:52 22:14 09/09/2019 20:52 Hospitalization Ordered by Sai Farr MD for Inpatient Admission. Preliminary diagnosis is Osteomyelitis, right foot; Cellulitis of right lower limb - right foot. Bed requested for Telemetry/MedSurg (Inpatient). Status is Inpatient Admission. Condition is Stable. Problem is new. Symptoms are unchanged. UTI on Admission? No. mt
[2019-09-09] MEDS ORDERED: VANCOMYCIN 1 GM/VIAL ONE (20:57)
[2019-09-09] MEDS ORDERED: PIPER/TAZO/NS 3.375gm 3.375 GM/100 ML BAG ONE (20:57)
[2019-09-09] MEDS ORDERED: NA CHLORIDE 0.9% 250 ML ONE (20:57)
[2019-09-09] MEDS ORDERED: ACETAMINOPHEN 500 MG TAB PO PRN (21:59)
--- NOTE | 2019-09-09 22:25 | P.HP ---
Certification for Inpatient Patient admitted to: Inpatient With expected LOS: >2 Midnights Patient will require the following post-hospital care: None Practitioner: I am a practitioner with admitting privileges, knowledge of patient current condition, hospital course, and medical plan of care. Services: Services provided to patient in accordance with Admission requirements found in Title 42 Section 412.3 of the Code of Federal Regulations Patient History Date of Service: 09/09/19 Reason for admission: Osteomyelitis of the right foot History of Present Illness: 69-year-old female with past medical history of diabetes mellitus, hypertension , hyperlipidemia, CAD status post bypass, peripheral arterial disease, neuropathy admitted with pain and swelling of the right foot which has been progressively worsening over the last few days. Patient denies any recent trauma. She states that she started noticing pain on the 5th toe of the right foot associated with swelling and redness which was radiating to the right ankle on the lateral aspect and was brought to ER. the patient denies any chest pain or shortness of breath. Denies any fever or chills patient was assessed in the ER and was found to have elevated ESR and CRP and x -ray suggestive of progressive changes consistent with osteomyelitis. Patient has been followed by Dr. Tiffany ROSA as outpatient. Allergies levofloxacin [From Levaquin] Allergy (Verified 06/04/19 22:44) Nausea/Vomiting Home medications list reviewed: Yes Home Medications: Furosemide [Lasix*] 40 mg PO DAILY 05/11/16 Metformin HCl [Metformin ER Osmotic] 1,000 mg PO BID 05/11/16 Metoprolol Tartrate [Lopressor*] 50 mg PO BID 05/11/16 Pravastatin [Pravachol*] 40 mg PO DAILY 05/11/16 Naproxen [Naprosyn] 500 mg PO BID 11/13/17 Pregabalin [Lyrica*] 75 mg PO BID 09/04/18 Clopidogrel Bisulfate [Plavix] 75 tab PO DAILY 01/19/19 Insulin Glargine/Lixisenatide [Soliqua 100 Unit-33 Mcg/ml Pen] 26 unit SQ DAILY 01/20/19 - Past Medical/Surgical History Diabetic: Yes Past Medical History: Reviewed- Non-Contributory -: CAD -: DIABETES -: HTN -: cholesterol -: neuropathy -: Left Leg artery clot removed -: CHF -: triple bypass Past Surgical History: Reviewed- Non-Contributory -: CABG X 3 -: cataract sx - Family History Family History: Reviewed- Non-Contributory - Family History Father -: Stroke Sister -: Cancer Mother -: Heart disease - Social History Smoking Status: Never smoker Alcohol use: No CD- Drugs: No Caffeine use: No Review of Systems 10-point ROS is otherwise unremarkable Physical Examination - Vital Signs Temperature: 98.3 F Blood Pressure: 128/76 Pulse: 82 Respirations: 18 - Physical Exam General: Alert, In no apparent distress, Oriented x3 HEENT: Atraumatic, Normocephalic Neck: Supple, 2+ carotid pulse no bruit Respiratory: Clear to auscultation bilaterally, Normal air movement Cardiovascular: Regular rate/rhythm, Normal S1 S2 Capillary refill: <2 Seconds Gastrointestinal: Soft and benign, W/out hepatosplenomegaly Musculoskeletal: No clubbing, Swelling, Erythema, Tenderness, Warmth, Other ( Right foot on the lateral aspect near to 5th toe) Integumentary: Rash(es), Tenderness/swelling, Erythema, Warmth Neurological: Normal speech, Normal strength at 5/5 x4 extr Lymphatics: No axilla or inguinal lymphadenopathy Urinary: Other (No bladder distention) External genitalia: Deferred Rectal: Deferred - Studies Laboratory Data (last 24 hrs) 09/09/19 18:00: Sodium 134 L, Potassium 4.5, BUN 51 H, Creatinine 1.37 H, Glucose 294 H, Total Bilirubin 0.4, AST 16, ALT 19, Alkaline Phosphatase 179 H 09/09/19 18:00: WBC 10.1, Hgb 9.0 L, Hct 28.1 L, Plt Count 294 Assessment and Plan - Problems (Diagnosis) (1) Osteomyelitis of right foot Current Visit: Yes Status: Acute (2) Osteomyelitis due to secondary diabetes Onset Date: 05/26/16 Current Visit: No Status: Acute (3) Type 2 diabetes mellitus without complications Onset Date: 09/05/18 Current Visit: No Status: Chronic Qualifiers: (4) Anemia Onset Date: 05/26/16 Current Visit: No Status: Chronic Qualifiers: (5) CAD (coronary artery disease) Onset Date: 05/26/16 Current Visit: No Status: Chronic Qualifiers: (6) HTN (hypertension) Onset Date: 05/26/16 Current Visit: No Status: Chronic Qualifiers: (7) Hyperlipidemia Onset Date: 09/05/18 Current Visit: No Status: Chronic Qualifiers: (8) Peripheral vascular disease due to secondary diabetes Current Visit: No Status: Chronic - Plan Osteomyelitis of right foot diabetes mellitus Hypertension Hyperlipidemia CAD status post CABG Peripheral arterial disease Plan Monitor under telemetry Start on antibiotics ID consult Continue home medications and titrate as needed Insulin sliding scale Titrate antihypertensives Pain control Will get an MRI of the foot GI/DVT prophylaxis Advanced directives full code Discharge Plan: Home Plan to discharge in: Greater than 2 days - Advance Directives Does patient have a Living Will: No Does patient have a Durable POA for Healthcare: No - Code Status/Comfort Care Code Status Assessed: Yes Code Status: Full Code Time Spent Managing Pts Care (In Minutes): 45
[2019-09-09] MEDS ORDERED: VANCOMYCIN 1 GM in NA CHLORIDE 0.9% 250 ML IVPB SCH (23:00)
[2019-09-10] MEDS ORDERED: VANCOMYCIN 750 MG in NA CHLORIDE 0.9% 250 ML IVPB ONE (01:00)
[2019-09-10] MEDS ORDERED: VANCOMYCIN 1 GM/VIAL ONE (01:23)
[2019-09-10] MEDS ORDERED: NA CHLORIDE 0.9% 250 ML ONE (01:23)
[2019-09-10 04:57] LABS: Absolute Lymphocytes (CBC) 1.3 K/uL (0.7-4.9); Basophils % 0.3 % (0-1.3); Hematocrit 25.8 % (36.0-45.0); Lymphocytes % 15.4 % (15.3-44.8); MPV 8.4 fL (7.6-11.3); RBC Red Blood Cell Count 3.28 M/uL (3.86-4.86)
[2019-09-10 05:04] LABS: Albumin 2.4 g/dL (3.4-5.0); Bilirubin Total 0.4 mg/dL (0.2-1.0); Magnesium 2.4 mg/dL (1.8-2.4); Phosphorus 2.9 mg/dL (2.5-4.9); Potassium 4.2 mmol/L (3.5-5.1); Protein, Total 6.7 g/dL (6.4-8.2)
[2019-09-10] MEDS: INSULIN -REGULAR HUMAN 50 UNIT/0.5 ML ML SQ SCH ×4 (07:30→20:56)
[2019-09-10 07:42] LABS: Urine Appearance CLOUDY; Urine Bilirubin NEGATIVE (NEG); Urine Blood NEGATIVE (NEG); Urine Color YELLOW; Urine Glucose TRACE (NEG); Urine Protein TRACE (NEG); Urine Urobilinogen 0.2 mg/dL (0.2-1.0); Urine pH 7.5 (5.0-7.0)
[2019-09-10 07:45] LABS: Urine Microscopic Reflex ORDER UMIC
[2019-09-10 08:01] LABS: Urine Bacteria 20-50 /HPF (<20); Urine Culture Reflex Order REFLEXED; Urine RBC <5 /HPF (NONE SEEN)
[2019-09-10] MEDS: [UNRECOGNIZED DRUG - OTHER] SQ SCH (09:00)
[2019-09-10] MEDS ORDERED: CEFEPIME 1 GM/VIAL IV SCH (09:00)
[2019-09-10] MEDS: ENOXAPARIN 40 MG/0.4 ML SQ SCH (12:00)
[2019-09-10] MEDS: PREGABALIN 75 MG CAP PO SCH ×2 (12:01→20:47)
[2019-09-10] MEDS: CEFEPIME/SWI 1gm 10 ML IVP SCH ×2 (12:01→21:00)
[2019-09-10] MEDS: CLOPIDOGREL 75 MG TABLET PO SCH (12:01)
[2019-09-10] MEDS: FUROSEMIDE 40 MG TABLET PO SCH (12:01)
[2019-09-10] MEDS: METOPROLOL TAR 50 MG TAB PO SCH ×2 (12:02→20:47)
[2019-09-10] MEDS ORDERED: ACETIC ACID 0.25% IRRIG IRR ONE (15:00)
--- NOTE | 2019-09-10 15:43 | PN ---
Subjective: Patient is seen and examined, chart reviewed and case discussed with RN. Patient compla ins of pain in her foot. Did go down for her MRI, asking for Dr. Lieberman, who she seen as an outpatie nt. Medications: List reviewed. Code Status: Full. Physical Examination: Vital Signs: Temperature 97.1, heart rate 79, blood pressure 127/56, respirations 16, O2 100% on tamara m air. General: Awake, alert, oriented x3. Elderly female. CV: S1, S2. Regular rate and rhythm. Peripheral pulses present. Respiratory: Moving air well bilaterally. No wheezing or stridor. Gastrointestinal: Abdomen is soft, nontender, nondistended. Positive bowel sounds. Extremities: No clubbing, cyanosis, or edema. Right foot, patient has a wound that is bandaged. Laboratory Data: Sodium 139, potassium 4.2, chloride 105, CO2 of 29, BUN 44, creatinine 1.21, glucos e 250, calcium 8.4. WBC 8.5, H and H 8.3 and 25.8, platelets 277. Cultures are pending. Foot x-ray report shows progressive osteomyelitis, destructive changes involving the 5th toe transver se fracture at the base of the first metatarsal. No distraction or angulation. This is not clearly pathologic or secondary to osteomyelitis. Degenerative changes elsewhere in the foot without bone de structive changes. MRI of the foot has been done, but the report is not up. Assessment: 69-year-old female with: 1.Right foot osteomyelitis. MRI is pending at this time. We will continue with broad-spectrum IV a ntibiotics. Follow up on cultures. ID has been consulted. Patient was also need to be seen by [facility] for possible amputation. 2.Diabetes mellitus type 2 without complications. We will continue with sliding scale insulin and m onitor blood glucose levels. 3.Anemia of chronic disease. Monitor H and H, transfuse as needed. 4.Coronary artery disease, [place] artery, [place] heart, without angina. Resume home medications as appropriate. 5.Essential hypertension, stable. Resume home medications. 6.Hyperlipidemia. Continue statin. 7.Peripheral vascular disease. Resume home medications. 8.Deep vein thrombosis prophylaxis addressed. Plan: Consult surgery for possible amputation. Follow up on MRI. Patient will likely need long-ter m IV antibiotics. Possible placement versus infusion at home. SA/MODL Voice ID: [id number] Report ID: [id number]
[2019-09-10] MEDS: MEDIHONEY 44 ML TOPICAL TUBE TOP SCH (15:45)
--- NOTE | 2019-09-10 16:30 | RAD REPORT ---
EXAM DESCRIPTION: MRI - Foot Right Wo Cont - 09/10/2019 11:53 am CLINICAL HISTORY: osteomyelitis Pain and swelling COMPARISON: Foot Right Wo Cont dated 06/04/2019; Foot Right Wo Cont dated 12/13/2017; Foot Right Wo Co nt dated 05/16/2016 FINDINGS: Significant diminished T1 signal is present in the distal fifth metatarsal as well as the bones of the fifth toe. This is compatible with moderately severe osteomyelitis. The tissues surround ing the level of osteomyelitis are edematous. There is no drainable fluid collection. Areas of bone i nfarction or seen first metatarsal with areas of reactive edema in several tarsal bones. IMPRESSION: Moderate osteomyelitis involving the distal fifth metatarsal as well as the entire fifth toe.
--- NOTE | 2019-09-10 18:13 | CON ---
History Of Present Illness: This is a 69-year-old female, known to me from previous admissions. Aishwarya ibarra has been admitted to long-term acute care for diabetic foot ulcer and osteomyelitis. Patient de nies any headache, nausea, vomiting, chest pain, abdominal pain, constipation, diarrhea, came in this time because of worsening of diabetic foot ulcer and cellulitis of the foot. Patient denies any oth er problems. An MRI done at hospital shows worsening of osteomyelitis. Past Medical History: Diabetic foot ulcer, osteomyelitis, diabetic neuropathy, hypercholesterolemia, coronary artery disease, hypertension, neuropathy, congestive heart failure. Past Surgical History: Triple bypass, cataract surgery. Social History: Nonsmoker, nondrinker. Family History: Noncontributory. Medications: Cefepime and vancomycin. See MAR for other medication. Allergies: LEVAQUIN. Review of Systems: A 10-point review was performed. Physical Examination: General: This is a 69-year-old female, sitting in easy chair, not in any acute cardiopulmonary distr ess. Vital Signs: Temperature 97.9, pulse 90, respirations 16, blood pressure 138/85. HEENT: Unremarkable. Neck: Supple. Lungs: Clear to auscultation. Heart: S1, S2. Regular. Abdomen: Soft, nontender. Bowel sounds present. Extremities: No edema. Right foot ulceration noted with slough and there is hyperpigmentation versu s black discoloration of the right foot on the lateral aspect noted traveling all the way up to the d orsum site with erythematous changes noted in the foot. Laboratory Data: Shows WBC 8.5, hemoglobin 8.3, platelets are 277. Chemistry shows sodium 139, pota ssium 4.2, chloride 105, bicarb 39, BUN 44, creatinine 1.29, glucose is 250. Micro data shows blood cultures pending. Wound cultures are gram-positive cocci in clusters and gram-negative rods. Assessment And Plan: Right foot diabetic foot ulcer with osteomyelitis and neuropathy in a patient w ith longstanding diabetes mellitus and peripheral vascular disease, recurrent infection, possibly sec ondary to trauma versus poor quality shoes. We will continue antibiotic total course of 6 weeks with vancomycin and cefepime. Patient can be sent home on IV antibiotics with home health as patient had experienced taking care of herself in the past and I will follow her up on September [facility]. NF/MODL Voice ID: [id number] Report ID: [id number]
[2019-09-10] MEDS: ATORVASTATIN 10 MG TAB PO SCH (20:47)
[2019-09-10] MEDS: MORPHINE 2 MG/ML SYR IV PRN (22:12)
[2019-09-10] MEDS ORDERED: CEFEPIME 1 GM/100 ML BAG IV ONE (23:15)
[2019-09-11] MEDS: INSULIN -REGULAR HUMAN 50 UNIT/0.5 ML ML SQ SCH ×4 (08:55→21:00)
[2019-09-11] MEDS: METOPROLOL TAR 50 MG TAB PO SCH ×2 (08:57→21:19)
[2019-09-11] MEDS: FUROSEMIDE 40 MG TABLET PO SCH (08:57)
[2019-09-11] MEDS: [UNRECOGNIZED DRUG - OTHER] SQ SCH (08:57)
[2019-09-11] MEDS: PREGABALIN 75 MG CAP PO SCH ×2 (08:58→21:19)
[2019-09-11] MEDS: HYDROCODONE/APAP 10/325 TAB PO PRN ×3 (08:58→21:20)
[2019-09-11] MEDS: ENOXAPARIN 40 MG/0.4 ML SQ SCH (08:58)
[2019-09-11] MEDS: VANCOMYCIN 1.25 GM in NA CHLORIDE 0.9% 500 ML IVPB SCH (10:46)
[2019-09-11] MEDS: CEFEPIME/SWI 1gm 10 ML IVP SCH ×2 (11:38→21:20)
--- NOTE | 2019-09-11 14:15 | PN ---
Date of Progress Note: 09/11/2019 Subjective: Patient seen and examined. Chart reviewed and case discussed with RN and Dr. Varun calderon s well as Dr. Yu. Patient does not report any significant pain. Fracture boot was provided yester day. Medication List: Reviewed. Physical Examination: Vital Signs: Temperature 98, heart rate 66, blood pressure 131/63 respirations 15, O2 97% on room ai r. General: Awake, alert, oriented x3, not in any acute distress. Elderly female, ill-appearing. CV: S1, S2. Regular rate and rhythm. Peripheral pulses present. Respiratory: Moving air well bilaterally. No wheezing or stridor. No use of accessory muscles. Gastrointestinal: Abdomen is soft, nontender, nondistended. Positive bowel sounds. No guarding or rigidity. Extremities: No clubbing, cyanosis, or edema. Neurologic: Nonfocal. Skin: The patient has ulceration of the right foot on the plantar aspect as well as the lateral aspe ct. No apparent drainage. Laboratory Data: Blood glucose levels between 225 and 206. Blood cultures, no growth to date. Woun d culture showing 3+ Staph coagulase positive and 3+ gram-negative rods. Urine culture, no growth to date. MRI of the foot shows moderate osteomyelitis involving the distal fifth metatarsal as well as the ent jamel fifth toe. Patient also has areas of bone infarction seen at the first metatarsal with areas of reactive edema in several tarsal bones. No drainable fluid collection. Assessment And Plan: A 69-year-old female with; 1.Osteomyelitis of the right foot. MRI of the foot shows progressive osteomyelitis including the di stal fifth metatarsal as well as the entire fifth toe. We will continue with broad-spectrum IV antib iotics. Cultures show gram-negative rods and coagulase positive Staphylococcus in the wound. Blood cultures are negative to date. Patient has failed outpatient IV antibiotics, was recently in LTAC in May. 2.Diabetic foot ulcers with osteomyelitis. We will continue with IV antibiotics and follow up on ltures. Appreciate Infectious Disease input. Dr. Lieberman, considering patient has failed outpatient treatment previously, may need to consider surgical debridement versus amputation of the 5th toe and metatarsal. Dr. Bond has been consulted. He will evaluate the patient. We will discuss case fu rther. Patient herself seems to be against amputation at this time. Patient will certainly need ort hotics. 3.Possible transverse fracture of the base of the first metatarsal of the right foot. MRI did not s how any fracture. She does have bone infarction in the first metatarsal. This is most likely relate d to the osteo versus her peripheral vascular disease. Dr. Yu was contacted and recommended a [facility] ture boot and outpatient followup. 4.Diabetes mellitus type 2, insulin requiring. We will continue with sliding scale insulin. Monito r blood glucose levels. 5.Anemia of chronic disease. We will continue to monitor H and H, transfuse as needed. 6.Coronary artery disease, [place] artery and [place] heart without angina. Stable. 7.Essential hypertension, stable. Continue home medications. 8.Mixed hyperlipidemia. Continue statin. 9.Peripheral vascular disease, stable. Plan: Possible amputation versus long-term IV antibiotics at home. DVT prophylaxis addressed. We w ill hold Plavix for now due to possible surgical intervention. /CHRIS Voice ID: [id number] Report ID: [id number]
[2019-09-11] MEDS: ATORVASTATIN 10 MG TAB PO SCH (21:19)
[2019-09-12 05:31] LABS: Absolute Lymphocytes (CBC) 1.6 K/uL (0.7-4.9); Basophils % 0.7 % (0-1.3); Hematocrit 25.7 % (36.0-45.0); Lymphocytes % 21.2 % (15.3-44.8); MPV 8.3 fL (7.6-11.3); RBC Red Blood Cell Count 3.25 M/uL (3.86-4.86)
[2019-09-12 05:46] LABS: Albumin 2.2 g/dL (3.4-5.0); Bilirubin Total 0.2 mg/dL (0.2-1.0); Potassium 4.7 mmol/L (3.5-5.1); Protein, Total 6.5 g/dL (6.4-8.2)
[2019-09-12] MEDS: ONDANSETRON 4 MG/2 ML VIAL IV PRN (05:59)
[2019-09-12 06:58] VITALS: BMI 26.5
[2019-09-12] MEDS: ENOXAPARIN 40 MG/0.4 ML SQ SCH (09:00)
[2019-09-12] MEDS: [UNRECOGNIZED DRUG - OTHER] SQ SCH (09:00)
[2019-09-12] MEDS: INSULIN -REGULAR HUMAN 50 UNIT/0.5 ML ML SQ SCH ×4 (09:47→21:44)
[2019-09-12] MEDS: CEFEPIME/SWI 1gm 10 ML IVP SCH ×2 (09:51→21:43)
[2019-09-12] MEDS: FUROSEMIDE 40 MG TABLET PO SCH (09:54)
[2019-09-12] MEDS: METOPROLOL TAR 50 MG TAB PO SCH ×2 (09:54→21:43)
[2019-09-12] MEDS: MEDIHONEY 44 ML TOPICAL TUBE TOP SCH (09:57)
[2019-09-12] MEDS: PREGABALIN 75 MG CAP PO SCH ×2 (09:57→21:43)
--- NOTE | 2019-09-12 16:58 | PN ---
Date of Progress Note: 09/12/2019 Subjective: Patient seen and examined. Chart reviewed and case discussed with RN and Dr. Lieberman. Patient essentially refused surgery. She wished to talk to Dr. Lieberman prior to making any decisions. I explained to her once again that she has worsening condition of her foot including the first metatarsal that now has necrotic base and worsening wound. She understands that the surgery is recommended. Patient refused cheese cook service, however, she is able to understand Thai and converse. She also has her friend, who did help translating for certain portions of the conversation, RNRosie at the bedside. Medications: List reviewed. Physical Examination: Vital Signs: Temperature 97.5, heart rate 63, blood pressure 125/58, respirations 16, O2 95% on room air. General: Awake, alert, oriented x3. Elderly female, slightly ill-appearing. CV: S1 and S2. Regular rate and rhythm. Peripheral pulses weak. Respiratory: Moving air well bilaterally. No wheezing or stridor. Gastrointestinal: Abdomen is soft, nontender, nondistended. Positive bowel sounds. No guarding or rigidity. Extremities: No clubbing or cyanosis. Patient has edema of the right foot. Skin: Right foot, multiple wounds, diabetic wounds including ulceration on the plantar aspect now with necrotic areas on the lateral aspect of the 5th metatarsal. Neurologic: Nonfocal. Laboratory Data: Sodium 142, potassium 4.7, chloride 110, CO2 of 27, BUN 39, creatinine 1.08, glucose 176, calcium 8.1. WBC 7.4, hemoglobin and hematocrit 8.2 and 25.7, platelets 299, neutrophils 61%. Blood cultures no growth to date. Right foot wound growing out klebsiella and Enterobacter cloacae, sensitive to cefepime. Assessment And Plan: A 69-year-old female with: 1. Osteomyelitis of the right foot. MRI reviewed. Continue with broad- spectrum IV antibiotics. Cultures positive for enterococcus as well as klebsiella. Patient refusing surgery at this time. We will try to set up with IV antibiotics at a alf facility, failed outpatient treatment in May. 2. Diabetic foot ulcer with osteomyelitis. Continue with IV antibiotics. Appreciate ID input. Dr. Bond recommends surgery on the 5th metatarsal; however, the patient reluctant. She understands the risks versus benefits. She understands that infection is getting worse without surgery infection. We will continue to spread despite IV antibiotics at this time. She wishes to confer further with Dr. Lieberman prior to making a decision. 3. Possible transverse fracture of the base of the first metatarsal of the right foot. MRI does not show fracture. Orthopedic recommends outpatient followup and fracture boot. 4. Diabetes mellitus type 2, insulin requiring. We will continue with sliding scale insulin. Patient does have some episodes of hypoglycemia. We will monitor closely. 5. Anemia of chronic disease. Continue to monitor H and H and transfuse as needed. 6. Coronary artery disease, [place] artery and [place] heart without angina, stable. 7. Essential hypertension, stable. 8. Mixed hyperlipidemia. We will continue statin. 9. Peripheral vascular disease, stable. Plan: We will try to set up with long-term IV antibiotics as the patient is refusing surgery at this time. We will need placement such as SNF for wound care and IV antibiotics. /CHRIS Voice ID: [id number] Report ID: [id number] TRI
--- NOTE | 2019-09-12 20:37 | PN ---
Subjective: Patient is lying in bed. No new acute event. Worsening right foot wound with swelling, redness, and more area of necrosis. Objective: Vital signs: Temperature 97, pulse 66, respirations 16, blood pressure 141/60. Lungs: Clear to auscultation. Heart: S1, S2 regular. Abdomen: Soft, nontender. Bowel sounds present. Extremity: Right foot with worsening wound to the right foot involving the right lateral aspect of t he foot, especially fifth metatarsal. Laboratory Data: WBC 7.4, hemoglobin 8.2, platelets are 299. Chemistry shows sodium 142, potassium 4.7, chloride 110, bicarb 27, BUN 39, creatinine 1, glucose is 218. Assessment And Plan: Wound cultures are growing Klebsiella oxytoca and Enterobacter cloacae. Rosa Maria sorto is currently getting cefepime and vancomycin. We will continue current antibiotic and supportive c are. Surgical team was called to help with possible debridement in amputation of the infected wound site in the 5th toe and metatarsal. We will follow the patient closely. NF/MODL Voice ID: [id number] Report ID: [id number]
[2019-09-12] MEDS: HYDROCODONE/APAP 10/325 TAB PO PRN (21:43)
[2019-09-12] MEDS: ATORVASTATIN 10 MG TAB PO SCH (21:43)
[2019-09-12] MEDS: VANCOMYCIN 1.25 GM in NA CHLORIDE 0.9% 500 ML IVPB SCH (22:00)
[2019-09-13] MEDS: HYDROCODONE/APAP 10/325 TAB PO PRN (01:32)
[2019-09-13] MEDS: VANCOMYCIN 1.25 GM in NA CHLORIDE 0.9% 500 ML IVPB SCH (01:35)
[2019-09-13 05:28] LABS: Absolute Lymphocytes (CBC) 1.8 K/uL (0.7-4.9); Basophils % 0.8 % (0-1.3); Hematocrit 24.3 % (36.0-45.0); Lymphocytes % 21.5 % (15.3-44.8); MPV 8.3 fL (7.6-11.3); RBC Red Blood Cell Count 3.14 M/uL (3.86-4.86)
[2019-09-13 05:50] LABS: Albumin 2.2 g/dL (3.4-5.0); Bilirubin Total 0.2 mg/dL (0.2-1.0); Potassium 4.5 mmol/L (3.5-5.1); Protein, Total 6.5 g/dL (6.4-8.2)
[2019-09-13] MEDS ORDERED: PANTOPRAZOLE 40 MG INJ IVP ONE (05:58)
[2019-09-13] MEDS ORDERED: NA CHLORIDE 0.9% 250 ML IV SCH (06:00)
[2019-09-13] MEDS: ONDANSETRON 4 MG/2 ML VIAL IV PRN (06:21)
[2019-09-13] MEDS: SODIUM CHLORIDE 0.9% 10ML INJ IV PRN (06:22)
[2019-09-13] MEDS: INSULIN -REGULAR HUMAN 50 UNIT/0.5 ML ML SQ SCH ×4 (07:30→21:08)
[2019-09-13] MEDS: MEDIHONEY 44 ML TOPICAL TUBE TOP SCH (09:00)
[2019-09-13] MEDS: CEFEPIME/SWI 1gm 10 ML IVP SCH ×2 (09:00→21:00)
[2019-09-13] MEDS: [UNRECOGNIZED DRUG - OTHER] SQ SCH (09:00)
[2019-09-13] MEDS: PREGABALIN 75 MG CAP PO SCH ×2 (09:00→21:07)
[2019-09-13] MEDS: FUROSEMIDE 40 MG TABLET PO SCH (09:00)
[2019-09-13] MEDS: ENOXAPARIN 40 MG/0.4 ML SQ SCH (09:00)
[2019-09-13] MEDS: METOPROLOL TAR 50 MG TAB PO SCH ×2 (09:20→21:06)
--- NOTE | 2019-09-13 10:30 | RAD REPORT ---
EXAM DESCRIPTION: RAD - Chest Single View - 09/13/2019 12:54 am CLINICAL HISTORY: 69 years Female PICC placement TECHNIQUE: One view of the chest. COMPARISON: 01/22/2019 FINDINGS: There is a right-sided PICC line with its tip projecting over the distal SVC. Prior median sternotomy with stable cardiomediastinal silhouette. No evidence of congestive failure. The lungs are clear without focal consolidation, effusion, or pneumothorax. No acute osseous abnormal ities. IMPRESSION: Right PICC line in good position. No acute cardiopulmonary abnormalities. Electronically signed by: Crissy Candelaria MD 09/13/2019 1:05 AM MANAGER LOCATION Due to temporary technical issues with the PACS/Fluency reporting system, reports are being signed by the in house radiologist as a courtesy to ensure prompt reporting. The interpreting radiologist is f ully responsible for the content of the report.
[2019-09-13] MEDS ORDERED: NA CHLORIDE 0.9% 1,000 ML ONE (11:52)
[2019-09-13] MEDS ORDERED: propofoL 200 MG/20 ML VIAL IV ONE ×2 (12:26→13:01)
[2019-09-13] MEDS ORDERED: LIDOCAINE 2% MPF 5 ML VIAL ONE (12:26)
[2019-09-13] MEDS ORDERED: FENTANYL CITR 100 MCG/2 ML ONE (12:26)
--- NOTE | 2019-09-13 12:54 | P.BOP ---
Preoperative diagnosis: destructive osteomyelitis 5th toe. R foot diabetic infected ulcer Postoperative diagnosis: same Primary procedure: transmetarsal amputation of Right 5th toe Estimated blood loss: minimal Specimen: toe and metatarsal Findings: destructive osteomylielis of R 5th toe and metatarsal area Anesthesia: MAC Complications: None Drain(s): Other Transferred to: Recovery Room
[2019-09-13] MEDS ORDERED: NS 0.9% VIAL 10 ML ONE (12:55)
[2019-09-13] MEDS ORDERED: Phenylephrine HCl 10 MG/ML 1 ML VIAL ONE (12:55)
--- NOTE | 2019-09-13 14:57 | RAD REPORT ---
EXAM DESCRIPTION: US - Lower Extremity Artery Uni Ltd - 09/13/2019 2:32 pm CLINICAL HISTORY: Right foot pain and swelling. COMPARISON: None FINDINGS: The waveform of the right common femoral artery is triphasic. The waveforms of the right superficial femoral, right popliteal and right posterior tibial arteries a re monophasic No flow seen within the right posterior tibial artery IMPRESSION: Moderate disease involving the proximal and mid arteries right lower extremity Marked disease involving the distal right lower extremity arteries
--- NOTE | 2019-09-13 15:04 | PN ---
Date of Progress Note: 09/13/2019 History Of Present Illness: Patient is seen and examined. Chart reviewed and case discussed with RN and Dr. Lieberman. The patient finally did agree for surgical debridement and amputation. Patient going for surgery today, stated that she had some difficulty sleeping last night, receiving 1 unit of blood today. Medications: List reviewed. Physical Examination: Vital Signs: Temperature 96.9, heart rate 76, blood pressure 125/55, respirations 18, O2 sat 96% on room air. General: Awake, alert, and oriented x3. Elderly female, in some mild distress , ill-appearing/ CV: S1, S2. Regular rate and rhythm. Peripheral pulses weak bilaterally. Respiratory: Moving air well bilaterally. No wheezing or stridor. No use of accessory muscles. Gastrointestinal: Abdomen is soft, nontender, nondistended. Positive bowel sounds. Extremities: No clubbing, cyanosis. Patient has right foot edema. Neurologic: Nonfocal. Skin: The patient has necrosis of the lateral aspect of the fifth of the right foot, multiple diabetic ulcerations on the plantar aspect. Laboratory Data: Sodium 139, potassium 4.5, chloride 106, CO2 28, BUN 39, creatinine 1.22, glucose 177, calcium 8.3. Albumin 2.2. WBC 8.3, H and H 7.9 and 24.3, platelets 335. Wound cultures growing out klebsiella, enterobacter, and MRSA. Blood cultures, no growth to date. Urine cultures, no growth. Assessment And Plan: A 69-year-old female with. 1. Osteomyelitis of the right foot. Patient is on broad-spectrum IV antibiotics, going for surgery today for likely fifth digit amputation and debridement. 2. Diabetic foot ulcer with osteomyelitis. Wound cultures are positive for klebsiella, enterobacter, and now methicillin-resistant Staphylococcus aureus. We will continue with vancomycin and cefepime. Patient will need long-term IV antibiotics and wound care, likely at [facility] facility. Patient has a peripherally inserted central catheter line in place. Appreciate Infectious Disease input. 3. Possible transverse fracture of the base of the first metatarsal of the right foot. Patient will need orthopedic followup as an outpatient and fracture boot. Already at bedside. 4. Diabetes mellitus type 2, insulin requiring. We will continue with sliding scale insulin. Monitor closely due to some episodes of hypoglycemia. Continue with Accu-Cheks. 5. Anemia of chronic disease. The patient's hemoglobin dropped to 7.9. She is receiving 1 unit of packed red blood cells. We will give Lasix afterwards. We will monitor H and H. Patient had anemia panel done previously. She likely has anemia of chronic disease. We will check Hemoccult. 6. Coronary artery disease of [place] artery, [place] heart. Without angina, stable. 7. Essential hypertension, stable. 8. Mixed hyperlipidemia. We will continue statin. 9. Peripheral vascular disease, stable. Plavix is on hold due to surgery. 10. Severe protein calorie malnutrition. Assembly Line Upholsterer consult. Protein supplementation. Plan, the patient will need to be transferred to [facility] facility for wound care and IV antibiotics once cleared by Surgery and is clinically improved. ADDENDUM: Spoke w Dr. Bond. Patient has very poor blood supply. At risk for non healing of wound. Will benefit from eval for revascularization, hyperbarics and LTAC placement. /CHRIS Voice ID: [id number] Report ID: [id number] TRI
[2019-09-13] MEDS: MORPHINE 2 MG/ML SYR IV PRN ×2 (17:14→21:38)
[2019-09-13] MEDS: ATORVASTATIN 10 MG TAB PO SCH (21:05)
[2019-09-13] MEDS: PROMOD 30 ML DOSE PO SCH (21:08)
[2019-09-14 00:05] LABS: Hematocrit 27.2 % (36.0-45.0)
--- NOTE | 2019-09-14 00:11 | OP ---
Date of Procedure: 09/13/2019 Surgeon: Tonny Bond MD Preoperative Diagnosis: 1.Destructive osteomyelitis, right fifth toe with osteomyelitis and cellulitis of right foot. 2.Peripheral vascular disease. 3.Diabetic ulcer. 4.Cellulitis. Postoperative Diagnosis: 1.Destructive osteomyelitis, right fifth toe with osteomyelitis and cellulitis of right foot. 2.Peripheral vascular disease. 3.Diabetic ulcer. 4.Cellulitis. Procedures: Transmetatarsal amputation of right fifth toe. Anesthesia: MAC. Findings: Destructive osteomyelitis not only of the fifth toe but also the metatarsal bone distally is also destroyed, just break away in pieces by just touching it. Estimated Blood Loss: Minimal. Indications: This is the case of a 69-year-old patient fighting with an infection of the right foot for several months already. She even received intravenous antibiotics, came to us with destructive o steomyelitis of the first toe with a diabetic ulcer on the distal foot, right near the area. She hoover s not want the amputation of the foot, but at least if the toe was already gone with destruction and is affecting the proximal foot, so we offered her at least an amputation of the fifth toe with benefi ts, alternatives, and risks including, but not limited to infection, bleeding, damage to adjacent str uctures, anesthesia complication, nonhealing wound, [place], and even . She also understands this ma y not relieve the symptoms. She might need more than one surgical intervention. Thus, she may requi re higher amputation, although she is not consenting for a evaen-iuu-mszw at this moment. Description Of Procedure: Patient was brought to the operating room, placed in supine position. A t michael-out was call right foot was prepped and draped in usual sterile fashion. The fifth toe was destr oyed. We have an ulcer also at the base of that toe that involving metatarsal region. When we make an incision to remove the toe, the metatarsal bone distally is falling apart, crumbling in pieces fro m destruction osteomyelitis too. So that area have to be removed with the specimen. That leaving a large area, the necrotic tissue was removed. The base of that fifth toe is also necrotic, need to be debrided, all the way down to subcutaneous tissue. Part of the tendon also connected to that. Firs t toe was also exposed. So, we did a transmetatarsal amputation of the fifth toe. Bleeding in that area is minimal. Patient tolerated the procedure well. Hemostasis obtained. Area was cultured. Ar ea was covered with wet-to-dry dressing. Patient tolerated the procedure well. This patient will re quire Infectious Disease once again for antibiotics. She will require wound care. She may need high er amputation, although she took some effort to get a consent for even the fifth toe. She may be a c andidate for hyperbaric treatment, may be a candidate also for wound VAC. VAHE/CHRIS Voice ID: [id number] Report ID: [id number]
[2019-09-14 05:16] LABS: Absolute Lymphocytes (CBC) 1.5 K/uL (0.7-4.9); Basophils % 0.7 % (0-1.3); Hematocrit 27.4 % (36.0-45.0); Lymphocytes % 18.3 % (15.3-44.8); MPV 8.1 fL (7.6-11.3); RBC Red Blood Cell Count 3.45 M/uL (3.86-4.86)
[2019-09-14 05:32] LABS: Albumin 2.2 g/dL (3.4-5.0); Bilirubin Total 0.3 mg/dL (0.2-1.0); Potassium 4.4 mmol/L (3.5-5.1); Protein, Total 6.3 g/dL (6.4-8.2)
[2019-09-14] MEDS: HYDROCODONE/APAP 10/325 TAB PO PRN ×3 (05:57→21:08)
[2019-09-14] MEDS: INSULIN -REGULAR HUMAN 50 UNIT/0.5 ML ML SQ SCH ×4 (07:30→21:00)
[2019-09-14] MEDS: METOPROLOL TAR 50 MG TAB PO SCH ×2 (09:00→21:07)
[2019-09-14] MEDS: FUROSEMIDE 40 MG TABLET PO SCH (09:00)
[2019-09-14] MEDS: [UNRECOGNIZED DRUG - OTHER] SQ SCH (09:00)
[2019-09-14] MEDS: MEDIHONEY 44 ML TOPICAL TUBE TOP SCH (09:00)
[2019-09-14] MEDS: CEFEPIME/SWI 1gm 10 ML IVP SCH ×2 (09:41→21:10)
[2019-09-14] MEDS: PROMOD 30 ML DOSE PO SCH ×2 (09:42→21:00)
[2019-09-14] MEDS: PREGABALIN 75 MG CAP PO SCH ×2 (09:42→21:09)
[2019-09-14] MEDS: ENOXAPARIN 40 MG/0.4 ML SQ SCH (09:42)
[2019-09-14 15:18] LABS: Ferritin 46.1 ng/mL (8-388)
[2019-09-14] MEDS: VANCOMYCIN 1.25 GM in NA CHLORIDE 0.9% 500 ML IVPB SCH (15:49)
[2019-09-14] MEDS: MORPHINE 2 MG/ML SYR IV PRN (16:21)
--- NOTE | 2019-09-14 17:53 | PN ---
Subjective: Currently, she is lying in bed. She looks comfortable. She has no chest pain. No abdo dipak pain. No fever, no chills. She had some sore throat earlier, but it is improved now. Objective: Vital Signs: Blood pressure 100/60, respiratory rate 18, pulse 62, temperature 97.9. Ge neral: The patient is alert and oriented x3. Does not look in any distress. HEENT: Atraumatic, no rmocephalic. PERRLA. Oral mucosa is moist. Neck: Supple. No JVD. No bruits. Chest: Clear to a uscultation. Good air entry. Heart: Regular rate and rhythm. S1, S2 normal. No murmur. Abdomen: Soft. No masses. No hepatosplenomegaly. Positive bowel sounds. Extremities: No clubbing or cya nosis. Right foot in dressing. There is no active bleeding or discharge. Neuro: Nonfocal. Laboratory Data: Lab today showed CBC with a white blood cell 8, hemoglobin of 9.1, platelets of 317 . Chemistry within normal except for chloride 108, BUN of 33, GFR 53, glucose 163, calcium 8.2. Assessment And Plan: A 69-year-old female with: 1.Osteomyelitis of the right foot. Source is supposed at transmetatarsal amputation of the right fi fth toe. Pathology still pending. Continue IV antibiotic as before with cefepime and vancomycin. 2.Diabetic foot ulcer with osteomyelitis as listed. Amputation of the fifth digit as above. Wound culture was positive for klebsiella, enterobacter, and now methicillin-resistant Staphylococcus aureu s. Continue vancomycin, cefepime. The patient needs long-term IV antibiotic and wound care should s he have a PICC line and she is pending discharge to [facility] when she is medically ready to bear surge ry and when she get accepted into the other facility. 3.Possible transverse fracture of the base of the fifth metatarsal with right foot. Dr. Wei cabrera ssed that with Orthopedics, and apparently they advised outpatient followup and using a fracture boot , which we obtained and is already at the bedside in the meantime. 4.Diabetes mellitus type 2, requiring insulin. The patient continued on insulin sliding scale as we ll as Accu-Chek. Her glucose in the range of 150-371 over night. I will increase her sliding scale insulin to 28 units from 26 currently. 5.Anemia of chronic disease, status post transfusion. Hemoglobin today at 9.1. Continue observatio n. Stool occult ordered, but there is no report yet. We will check iron profile as the patient has microcytic anemia. 6.Coronary artery disease without angina. 7.Hypertension, well controlled. 8.Hyperlipidemia. Continue statin. 9.Peripheral vascular disease. Plavix on hold due to surgery. 10.Protein calorie malnutrition. Dietitian following. Advised protein supplement. 11.Discharge will depend on whenever the patient is accepted at the long-term care facility. She wi ll need hyperbaric according to Dr. Bond because of her poor blood supply and risk for nonhealing wounds. TRACEY/MODL Voice ID: [id number] Report ID: [id number]
[2019-09-14] MEDS: ATORVASTATIN 10 MG TAB PO SCH (21:10)
[2019-09-15] MEDS: MORPHINE 2 MG/ML SYR IV PRN (00:47)
[2019-09-15] MEDS: PROMOD 30 ML DOSE PO SCH ×2 (09:00→20:42)
[2019-09-15] MEDS ORDERED: INSULIN GLARGINE SQ SCH (09:00)
[2019-09-15] MEDS ORDERED: [UNRECOGNIZED DRUG - OTHER] SQ SCH (09:00)
[2019-09-15] MEDS: MEDIHONEY 44 ML TOPICAL TUBE TOP SCH (09:00)
[2019-09-15] MEDS ORDERED: LIXISENATIDE SQ SCH (09:00)
[2019-09-15] MEDS: INSULIN -REGULAR HUMAN 50 UNIT/0.5 ML ML SQ SCH ×4 (09:13→20:42)
[2019-09-15] MEDS: SODIUM CHLORIDE 0.9% 10ML INJ IV PRN (09:16)
[2019-09-15] MEDS: PREGABALIN 75 MG CAP PO SCH ×2 (09:17→20:44)
[2019-09-15] MEDS: METOPROLOL TAR 50 MG TAB PO SCH ×2 (09:17→20:43)
[2019-09-15] MEDS: ENOXAPARIN 40 MG/0.4 ML SQ SCH (09:17)
[2019-09-15] MEDS: FUROSEMIDE 40 MG TABLET PO SCH (09:20)
[2019-09-15] MEDS: CEFEPIME/SWI 1gm 10 ML IVP SCH ×2 (09:21→20:42)
[2019-09-15 09:35] LABS: Absolute Lymphocytes (CBC) 1.3 K/uL (0.7-4.9); Basophils % 0.9 % (0-1.3); Hematocrit 28.9 % (36.0-45.0); Lymphocytes % 18.5 % (15.3-44.8); MPV 8.1 fL (7.6-11.3); RBC Red Blood Cell Count 3.67 M/uL (3.86-4.86)
[2019-09-15 09:52] LABS: Albumin 2.3 g/dL (3.4-5.0); Bilirubin Total 0.3 mg/dL (0.2-1.0); Potassium 4.4 mmol/L (3.5-5.1)
[2019-09-15] MEDS: HYDROCODONE/APAP 10/325 TAB PO PRN ×2 (10:08→17:23)
--- NOTE | 2019-09-15 13:16 | PN ---
Subjective: Currently patient lying in bed. She looks comfortable. She continued to have mild pain in her right foot after surgery, but is overall manageable. No nausea, no vomiting. No chest pain. No abdominal pain. Her sore throat resolved this morning. Review of Systems: Otherwise as below. Objective: Vital Signs: Currently blood pressure is 145/67, respiratory rate 17, pulse 64, temperat ure 97.8. She is saturating 98% on room air. General: She is alert and oriented x3, does not look in any distress. HEENT: Atraumatic, normocephalic. PERRLA. Oral mucosa is moist. Neck: Supple. No JVD. No carotid bruit. Chest: Clear to auscultation. Good air entry. Heart: Regular rate and rhythm. S1, S2 normal. No gallop or murmur. Abdomen: Soft, nontender with no hepatosplenomegaly. Positive bowel sounds. Extremities: No clubbing, or cyanosis or edema. Right foot in dressing with no bleeding, discharge, or oozing. Laboratory Data: Today, CBC and CMP, both pending. Glucose in the range of 218-241. Assessment/plan: A 69-year-old female with: 1.Osteomyelitis of the right foot, treated with transmetatarsal amputation of the right fifth toe. Pathology on that is still pending. Continue IV antibiotic as planned before with cefepime and vanco mycin. 2.Diabetic foot ulcer with osteomyelitis as listed above. Patient has had amputation of the fifth t oe. Wound culture was positive for Klebsiella, Enterobacter and methicillin-resistant Staphylococcus aureus. Patient is currently on cefepime and vancomycin. She needs long-term IV antibiotics and wo und care, which required discharge to [facility] when she gets accepted. Patient already had a PICC alfredo e, but she is ready to be discharged hopefully in the morning if she gets accepted. 3.Possible transverse fracture of the base of the fifth metatarsal, right foot. Dr. Carvajal discussed the case with orthopedic apparently and they advised outpatient followup as well as using fracture b oot, which already provided and is bit tight. 4.Type 2 diabetes mellitus requiring insulin. Patient on insulin sliding scale. Her glucoses today is better than yesterday after increase her insulin to 28 units, but still high, so I will increase her insulin again to 30 units instead of 28 today. 5.Anemia of chronic disease. CBC pending today. Patient received 1 unit of blood earlier. Her lat est hemoglobin was 9.1 yesterday, again today is pending. Hemoccult blood is ordered and is still pe nding. Iron profile showed signs of iron deficiency. I will start patient on iron supplement with f errous sulfate t.i.d. 6.Coronary artery disease, stable. 7.Hypertension, well controlled. 8.Hyperlipidemia. Continue on statin. 9.History of peripheral vascular disease. Plavix on hold due to surgery. Please resume when surgeo n okay with that. 10.Discharge plan again to long-term care facility according to Dr. Bond. Patient will require hyperbaric treatment due to her poor blood supply and risk of nonhealing wound, probably that could h ave been at the LTAC facility. DASHAWN Voice ID: [id number] Report ID: [id number]
--- NOTE | 2019-09-15 16:25 | PN ---
Subjective: Patient lying in bed. Denies any headache, nausea, vomiting, chest pain, abdominal pain , constipation, or diarrhea. Has some discomfort in the right foot. Denies any other problems. Objective: Vital Signs: Temperature 97.5, pulse 63, respirations 17, blood pressure 169/71. Lungs: Clear to auscultation. Heart: S1 and S2 are regular. Abdomen: Soft, nontender. Bowel sounds present. Extremities: Right foot wound noted post surgical debridement, has black necrotic tissue with 30% gr anulation tissue and 20% necrotic tissue, still noted in the wound site. Laboratory Data: Shows WBC 7.2, hemoglobin 9.5, platelets are 340. Chemistry shows sodium 139, pota ssium 4.4, chloride 208, bicarb 25, BUN 32, creatinine 1, glucose is 279. Micro Data: Growing Klebsiella oxytoca, Enterobacter cloacae, and MRSA. Medications: Currently, patient on vancomycin and cefepime. Assessment And Plan: A 69-year-old female with nonhealing right foot diabetic ulcer and osteomyeliti s, status post surgical debridement and amputation of 5th toe and 5th metatarsal head. The patient i s continued to be on antibiotic. We will recommend hyperbaric and also continue Medihoney with algin ate. Consider transferring patient to long-term acute care. We will follow the patient as needed. Case discussed with family and with patient who agrees to going to long-term acute care for hyperbaric deonte atment. NF/MODL Voice ID: [id number] Report ID: [id number]
[2019-09-15] MEDS: ATORVASTATIN 10 MG TAB PO SCH (20:43)
[2019-09-15] MEDS: FERROUS GLUCONATE 324 MG TAB PO SCH (20:43)
[2019-09-16] MEDS: VANCOMYCIN 1.25 GM in NA CHLORIDE 0.9% 250 ML IVPB SCH (02:22)
[2019-09-16 04:44] LABS: Absolute Lymphocytes (CBC) 1.6 K/uL (0.7-4.9); Hematocrit 26.7 % (36.0-45.0); Lymphocytes % 21.9 % (15.3-44.8); MPV 8.1 fL (7.6-11.3); RBC Red Blood Cell Count 3.38 M/uL (3.86-4.86)
[2019-09-16 05:08] LABS: Albumin 2.1 g/dL (3.4-5.0); Bilirubin Total 0.3 mg/dL (0.2-1.0); Potassium 4.2 mmol/L (3.5-5.1); Protein, Total 6.4 g/dL (6.4-8.2)
[2019-09-16 05:13] LABS: Blood Morphology Comment NOT SEEN (NOT SEEN); Platelet Estimate ADEQ
[2019-09-16] MEDS ORDERED: GLUCAGON 1 MG/VIAL IM PRN (08:58)
[2019-09-16] MEDS ORDERED: D50W 25 GM/50 ML SYRINGE/VIAL IV PRN (08:58)
[2019-09-16] MEDS: INSULIN GLARGINE 100 UNITS/ML SQ SCH (09:27)
[2019-09-16] MEDS: INSULIN -REGULAR HUMAN 50 UNIT/0.5 ML ML SQ SCH ×4 (09:28→20:08)
[2019-09-16] MEDS: ENOXAPARIN 40 MG/0.4 ML SQ SCH (09:28)
[2019-09-16] MEDS: PREGABALIN 75 MG CAP PO SCH ×2 (09:28→19:56)
[2019-09-16] MEDS: METOPROLOL TAR 50 MG TAB PO SCH ×2 (09:29→19:56)
[2019-09-16] MEDS: FUROSEMIDE 40 MG TABLET PO SCH (09:29)
[2019-09-16] MEDS: FERROUS GLUCONATE 324 MG TAB PO SCH ×2 (09:29→19:56)
[2019-09-16] MEDS: MEDIHONEY 44 ML TOPICAL TUBE TOP SCH (09:30)
[2019-09-16] MEDS: PROMOD 30 ML DOSE PO SCH ×2 (09:30→19:59)
--- NOTE | 2019-09-16 10:13 | CON ---
Date of Consultation: 09/11/2019 Reason For Service: nonhealing wound, destructive osteomyelitis, right foot specifically right fifth toe. History Of Present Illness: This is the case of a 69-year-old patient with multiple medical problems , comes to us with destructive osteomyelitis of the right fifth toe. She has been 6 weeks already in LTAC for antibiotics. Apparently, they could not start the process of the right fifth toe. ___ osteomyelitis of the proximal foot. I was asked to evaluate the toe for possible amputation. Sh reece denies any recent trauma. She understands she has an ulcer on that region, nonhealing, and it is g etting worse. She denies any dysuria, hematuria, hematochezia, or melena. She understands the impor tance of diet. Past Medical History: Congestive heart failure, peripheral vascular disease, diabetes, hypertension, neuropathy. Past Surgical History: Allergies: Family History: Peripheral vascular disease. Social History: She does not smoke. She does not drink alcohol. Review of Systems: Ten point system otherwise unremarkable. Physical Examination: General: Patient is awake and alert. HEENT: Pupils are equal and reactive, anicteric. Neck: Supple. Chest: Clear. Heart: S1, S2. Abdomen: Soft and depressible. Extremities: At the right first toe, patient has an ulcer at the base of the foot and the fifth meta tarsal region with gross deformities of the fifth toe. Peripheral pulses bilaterally are diminished. Peripheral neuropathy is present too. Laboratory Data: Blood work shows WBC count of 7.4 with hemoglobin of 8.2. MRI review t he patient shows destructive osteomyelitis of the right fifth toe. There is a questionable findings on the left first metatarsal region something about the fracture, although the patient is asymptomati c in that area with no tenderness, no open areas, no swelling, asymptomatic in the area that the imag ing described, but the area of the fifth toe differently correlated with the findings clinically. Plan: She was advised the importance of diet control and diabetes control. I spend with her at [facility] t an hour with her and all the family members. In Faroese and Albanian discussing the importance of b eing compliance with treatment. In the right fifth toe, she tried antibiotics before show progressio n of the disease with destruction. The fifth toe amputation, benefits and risks were explained to he r and the family which include, but not limited to infection, bleeding, damage to adjacent structures , anesthesia complications, nonhealing wound, [place], and even . She does understand that even thou gh we remove that toe, the area may not heal and she may need proximal amputation even with foot ampu tation if she does not heal, if she does not see her vascular surgeons, if she does not follow recomm endations, if she does not control her sugar. This is a multifactorial disease. She understands michele t we were there. All the questions were answered to their satisfaction. They want to discuss with t he Infectious Disease first, Dr. Lieberman, she is going to try once again to try the antibio tics without surgery. We are going to wait for her consent and proceed accordingly. VU Voice ID: [id number] Report ID: [id number]
[2019-09-16] MEDS: CEFEPIME/SWI 1gm 10 ML IVP SCH (10:18)
[2019-09-16] MEDS: HYDROCODONE/APAP 10/325 TAB PO PRN ×2 (13:24→19:56)
--- NOTE | 2019-09-16 17:47 | PN ---
Date of Progress Note: 09/16/2019 Subjective: Patient was seen and examined. Chart reviewed and case discussed with RN. Case also di scussed with Dr. Bond. Patient does not have any specific complaints. Medications: List reviewed. Physical Examination: Vital Signs: Temperature 98.3, heart rate 64, blood pressure 139/65, respirations 16, O2 96% on room air. General: Awake, alert, oriented x3. Elderly female, in some mild distress. CV: S1, S2. Regular rate and rhythm. Peripheral pulses weak. Respiratory: Moving air well bilaterally. No wheezing or stridor. Gastrointestinal: Abdomen is soft, nontender, nondistended. Positive bowel sounds. Extremities: No clubbing, cyanosis. Patient has edema of the right foot. Skin: Right foot bandaged, status post fifth metatarsal amputation. Neurologic: Nonfocal. Patient has decreased sensation to bilateral lower extremities. Code Status: Full. Laboratory Data: Sodium 140, potassium 4.2, chloride 109, CO2 of 27, BUN 33, creatinine 0.89, glucos e 184, calcium 8.2, albumin 2.1. WBC 7.2, H and H 8.7 and 26.7, platelets 329, neutrophils 60%. Wou nd cultures growing out Klebsiella, enterobacter, MRSA. Assessment: A 69-year-old female with: 1.Osteomyelitis of the right foot, status post transmetatarsal amputation of the right fifth digit. Pathology pending. Continue with IV antibiotics. Patient will need hyperbaric oxygen and long-term IV antibiotics. PICC line is in place. 2.Diabetic foot ulcer with osteomyelitis, status post amputation. Wound cultures positive for Klebs iella, enterobacter, methicillin-resistant Staphylococcus aureus. Continue IV antibiotics with cefep michael and IV vancomycin. Appreciate Dr. Bond and Dr. Lieberman's input. Continue with long-term IV a ntibiotics at [facility]. 3.Possible transverse fracture of the base of the first metatarsal of right foot. Discussed with or michelle, who recommends outpatient followup and fracture boot. 4.Diabetes mellitus type 2, insulin requiring, with hyperglycemia. We will continue with sliding sc jeanette insulin. Her insulin has been increased. Currently, was not getting her insulin as she was unab le to bring it from home. We will switch to Lantus. 5.Anemia of chronic disease. We will continue with monitoring H and H. Patient was transfuse 1 uni t of PRBCs last week. Hemoccult is pending. Iron profile shows iron deficiency. Continue with ferr ous sulfate t.i.d. 6.Severe peripheral vascular disease. Plavix will be resumed. Patient will likely benefit from Vas cular Surgery assessment, and evaluation and treatment. She will likely need angiogram, unable to be done at this facility and possibly stenting or femoral bypass. Patient has poor circulation and her wound healing is threatened. 7.Mixed hyperlipidemia. Continue statin. 8.Essential hypertension. Stable. 9.Coronary artery disease, [place] artery and [place] heart without angina. Stable. Plan: Discharge to LTAC for hyperbaric treatment and poor blood supply with risk of nonhealing wound . Once accepted, patient to follow up with ID. Long-term IV antibiotics, will need weekly labs and to have dose adjusted renally. PICC line care and removal once antibiotics completed. Vascular surg kayla evaluation. /CHRIS Voice ID: [id number] Report ID: [id number]
[2019-09-16] MEDS: CEFEPIME/SWI 1gm 10 ML IV SCH (19:56)
[2019-09-16] MEDS: ATORVASTATIN 10 MG TAB PO SCH (19:56)
[2019-09-16] MEDS ORDERED: CEFEPIME 1 GM/VIAL IV SCH (21:00)
[2019-09-16] MEDS: COLLAGENASE 30 GM OINTMENT TOP SCH (21:17)
[2019-09-17] MEDS: MORPHINE 2 MG/ML SYR IV PRN (02:56)
[2019-09-17 05:12] LABS: Absolute Lymphocytes (CBC) 1.9 K/uL (0.7-4.9); Basophils % 1.2 % (0-1.3); Hematocrit 27.5 % (36.0-45.0); Lymphocytes % 25.1 % (15.3-44.8); MPV 8.1 fL (7.6-11.3); RBC Red Blood Cell Count 3.45 M/uL (3.86-4.86)
[2019-09-17 05:20] LABS: Albumin 2.2 g/dL (3.4-5.0); Bilirubin Total 0.2 mg/dL (0.2-1.0); Potassium 4.1 mmol/L (3.5-5.1); Protein, Total 6.6 g/dL (6.4-8.2)
[2019-09-17] MEDS: INSULIN -REGULAR HUMAN 50 UNIT/0.5 ML ML SQ SCH ×4 (07:30→20:56)
[2019-09-17] MEDS: PREGABALIN 75 MG CAP PO SCH ×2 (09:00→20:43)
[2019-09-17] MEDS: COLLAGENASE 30 GM OINTMENT TOP SCH (09:00)
[2019-09-17] MEDS: PROMOD 30 ML DOSE PO SCH ×2 (09:00→20:42)
[2019-09-17] MEDS: CEFEPIME/SWI 1gm 10 ML IV SCH ×2 (11:12→20:43)
[2019-09-17] MEDS: ENOXAPARIN 40 MG/0.4 ML SQ SCH (11:12)
[2019-09-17] MEDS: FERROUS GLUCONATE 324 MG TAB PO SCH ×2 (11:12→20:43)
[2019-09-17] MEDS: FUROSEMIDE 40 MG TABLET PO SCH (11:13)
[2019-09-17] MEDS: INSULIN GLARGINE 100 UNITS/ML SQ SCH (11:13)
[2019-09-17] MEDS: CLOPIDOGREL 75 MG TABLET PO SCH (11:13)
[2019-09-17] MEDS: METOPROLOL TAR 50 MG TAB PO SCH ×2 (11:14→20:43)
[2019-09-17] MEDS ORDERED: SODIUM HYPOCHLORITE 0.25% 473 ML TOP PRN (12:16)
--- NOTE | 2019-09-17 12:42 | P.PN ---
Subjective Date of Service: 09/17/19 Primary Care Provider: Dr. Millard; ID-Dr. Lieberman Chief Complaint: Osteomyelitis of the right foot Subjective: Improving, Doing well Physical Examination - Vital Signs Temperature: 97.8 F Blood Pressure: 149/68 Pulse: 60 Respirations: 16 Pulse Ox (%): 97 - Physical Exam General: Alert, In no apparent distress, Oriented x3, Cooperative HEENT: Atraumatic Neck: Supple Respiratory: Clear to auscultation bilaterally, Normal air movement Cardiovascular: Normal pulses, Regular rate/rhythm Gastrointestinal: Normal bowel sounds, Soft and benign, Non-distended Integumentary: Other (Right foot bandaged) Neurological: Normal speech, Normal strength at 5/5 x4 extr, Normal tone - Studies Medications List Reviewed: Yes Assessment & Plan Discharge Plan: LTAC Plan to discharge in: 24 Hours Physician Review Additional Text: Impression: Osteomyelitis of the right foot status post transmetatarsal amputation of the right 5th digit with cultures positive for Enterobacter, Klebsiella and MRSA Diabetes mellitus type 2 insulin-dependent with hyperglycemia Anemia of chronic disease Severe peripheral vascular disease Mixed hyperlipidemia Hypertension CAD Plan: Osteomyelitis of the right foot status post transmetatarsal amputation of the right 5th digit with cultures positive for Enterobacter, Klebsiella and MRSA: Case discussed with surgery yesterday. Continue current IV antibiotic therapy- cefepime and vancomycin. [facility]. Case discussed with drug abuse social worker. Hopefully patient will be approved soon. Diabetes mellitus type 2 insulin-dependent with hyperglycemia: Continue basal insulin. Will monitor Accu-Cheks to adjust medication for better control. Anemia of chronic disease: Patient did receive 1 unit of blood last week. Continue with iron supplementation. Severe peripheral vascular disease: Continue Plavix. Patient will require vascular surgery assessment at long-term acute care facility to consider options of care. Mixed hyperlipidemia: Continue medication Hypertension: Continue medication. CAD: Continue medication. Time Spent Managing Pts Care (In Minutes): 55
[2019-09-17] MEDS: VANCOMYCIN 1.25 GM in NA CHLORIDE 0.9% 250 ML IVPB SCH (15:00)
[2019-09-17] MEDS: ATORVASTATIN 10 MG TAB PO SCH (20:43)
[2019-09-17] MEDS: HYDROCODONE/APAP 10/325 TAB PO PRN (20:56)
[2019-09-18 06:07] LABS: Magnesium 2.2 mg/dL (1.8-2.4); Phosphorus 4.3 mg/dL (2.5-4.9); Potassium 3.8 mmol/L (3.5-5.1)
[2019-09-18 06:11] LABS: Absolute Lymphocytes (CBC) 1.7 K/uL (0.7-4.9); Basophils % 1.1 % (0-1.3); Hematocrit 27.6 % (36.0-45.0); Lymphocytes % 25.6 % (15.3-44.8); RBC Red Blood Cell Count 3.54 M/uL (3.86-4.86)
[2019-09-18] MEDS: INSULIN -REGULAR HUMAN 50 UNIT/0.5 ML ML SQ SCH ×4 (07:30→21:00)
[2019-09-18] MEDS: CEFEPIME/SWI 1gm 10 ML IV SCH ×2 (08:59→21:29)
[2019-09-18] MEDS: INSULIN GLARGINE 100 UNITS/ML SQ SCH (08:59)
[2019-09-18] MEDS: COLLAGENASE 30 GM OINTMENT TOP SCH (09:00)
[2019-09-18] MEDS: FUROSEMIDE 40 MG TABLET PO SCH (09:00)
[2019-09-18] MEDS: PREGABALIN 75 MG CAP PO SCH ×2 (09:00→21:29)
[2019-09-18] MEDS ORDERED: POTASSIUM CL SA 10 MEQ TAB PO ONE (09:00)
[2019-09-18] MEDS: ENOXAPARIN 40 MG/0.4 ML SQ SCH (09:00)
[2019-09-18] MEDS: CLOPIDOGREL 75 MG TABLET PO SCH (09:01)
[2019-09-18] MEDS: METOPROLOL TAR 50 MG TAB PO SCH ×2 (09:01→21:29)
[2019-09-18] MEDS: PROMOD 30 ML DOSE PO SCH ×2 (09:02→21:29)
[2019-09-18] MEDS: FERROUS GLUCONATE 324 MG TAB PO SCH ×2 (09:04→21:29)
--- NOTE | 2019-09-18 13:33 | P.PN ---
Subjective Date of Service: 09/18/19 Primary Care Provider: Dr. Millard; ID-Dr. Lieberman Chief Complaint: Osteomyelitis of the right foot Subjective: Improving, Doing well Physical Examination - Vital Signs Temperature: 97.5 F Blood Pressure: 120/56 Pulse: 60 Respirations: 18 Pulse Ox (%): 99 - Physical Exam General: Alert, In no apparent distress, Oriented x3, Cooperative HEENT: Atraumatic Neck: Supple Respiratory: Clear to auscultation bilaterally, Normal air movement Cardiovascular: Normal pulses, Regular rate/rhythm Neurological: Normal speech, Normal strength at 5/5 x4 extr, Normal tone - Studies Medications List Reviewed: Yes Assessment & Plan Discharge Plan: LTAC Plan to discharge in: 24 Hours Physician Review Additional Text: Impression: Osteomyelitis of the right foot status post transmetatarsal amputation of the right 5th digit with cultures positive for Enterobacter, Klebsiella and MRSA Diabetes mellitus type 2 insulin-dependent with hyperglycemia Anemia of chronic disease Severe peripheral vascular disease Mixed hyperlipidemia Hypertension CAD Plan: Osteomyelitis of the right foot status post transmetatarsal amputation of the right 5th digit with cultures positive for Enterobacter, Klebsiella and MRSA: Patient remained stable. Continue IV antibiotic therapy-cefepime and vancomycin. Will order physical therapy and occupational therapy. Continue current wound care. Await approval for long-term acute care facility placement. Patient requires continued aggressive wound care and IV antibiotic therapy. Skilled placement facility will likely not be able to help facilitate this. Continue to wait approval Diabetes mellitus type 2 insulin-dependent with hyperglycemia: Continue basal insulin. Will monitor Accu-Cheks to adjust medication for better control. Anemia of chronic disease: Patient did receive 1 unit of blood last week. Continue with iron supplementation. Severe peripheral vascular disease: Continue Plavix. Patient will require vascular surgery assessment at long-term acute care facility to consider options of care. Mixed hyperlipidemia: Continue medication Hypertension: Continue medication. CAD: Continue medication. Time Spent Managing Pts Care (In Minutes): 55
[2019-09-18] MEDS: HYDROCODONE/APAP 10/325 TAB PO PRN (16:27)
[2019-09-18] MEDS: ATORVASTATIN 10 MG TAB PO SCH (21:29)
[2019-09-19] MEDS: VANCOMYCIN 1.25 GM in NA CHLORIDE 0.9% 250 ML IVPB SCH (02:04)
[2019-09-19] MEDS: HYDROCODONE/APAP 10/325 TAB PO PRN ×2 (04:31→16:59)
[2019-09-19 05:06] LABS: Absolute Lymphocytes (CBC) 2.1 K/uL (0.7-4.9); Basophils % 0.9 % (0-1.3); Hematocrit 29.2 % (36.0-45.0); Lymphocytes % 26.7 % (15.3-44.8); MPV 7.9 fL (7.6-11.3); RBC Red Blood Cell Count 3.65 M/uL (3.86-4.86)
[2019-09-19 05:09] LABS: Magnesium 2.3 mg/dL (1.8-2.4); Potassium 4.2 mmol/L (3.5-5.1)
[2019-09-19] MEDS: INSULIN -REGULAR HUMAN 50 UNIT/0.5 ML ML SQ SCH ×4 (07:30→20:58)
[2019-09-19] MEDS: COLLAGENASE 30 GM OINTMENT TOP SCH (09:00)
[2019-09-19] MEDS: ENOXAPARIN 40 MG/0.4 ML SQ SCH (10:08)
[2019-09-19] MEDS: INSULIN GLARGINE 100 UNITS/ML SQ SCH (10:08)
[2019-09-19] MEDS: CLOPIDOGREL 75 MG TABLET PO SCH (10:09)
[2019-09-19] MEDS: FUROSEMIDE 40 MG TABLET PO SCH (10:09)
[2019-09-19] MEDS: FERROUS GLUCONATE 324 MG TAB PO SCH ×2 (10:09→20:57)
[2019-09-19] MEDS: PREGABALIN 75 MG CAP PO SCH ×2 (10:09→20:57)
[2019-09-19] MEDS: METOPROLOL TAR 50 MG TAB PO SCH ×2 (10:09→20:57)
[2019-09-19] MEDS: CEFEPIME/SWI 1gm 10 ML IV SCH ×2 (10:10→20:57)
[2019-09-19] MEDS: PROMOD 30 ML DOSE PO SCH ×2 (10:12→20:58)
--- NOTE | 2019-09-19 14:21 | P.PN ---
Subjective Date of Service: 09/19/19 Primary Care Provider: Dr. Millard; ID-Dr. Lieberman Chief Complaint: Osteomyelitis of the right foot Subjective: Improving Physical Examination - Vital Signs Temperature: 97.1 F Blood Pressure: 150/60 Pulse: 61 Respirations: 16 Pulse Ox (%): 98 - Physical Exam General: Alert, In no apparent distress, Cooperative HEENT: Atraumatic Neck: Supple Respiratory: Clear to auscultation bilaterally, Normal air movement Cardiovascular: Normal pulses, Regular rate/rhythm - Studies Medications List Reviewed: Yes Assessment & Plan Discharge Plan: Other (long term facility) Plan to discharge in: 24 Hours Physician Review Additional Text: Impression: Osteomyelitis of the right foot status post transmetatarsal amputation of the right 5th digit with cultures positive for Enterobacter, Klebsiella and MRSA Diabetes mellitus type 2 insulin-dependent with hyperglycemia Anemia of chronic disease Severe peripheral vascular disease Mixed hyperlipidemia Hypertension CAD Plan: Osteomyelitis of the right foot status post transmetatarsal amputation of the right 5th digit with cultures positive for Enterobacter, Klebsiella and MRSA: Patient stable this time. Case discussed with insurance medical interpreter. They have denied patient going to a long-term acute care facility. They prefer skilled placement. Now pursue skilled placement. Continue IV antibiotic therapy -cefepime and vancomycin. Will order physical therapy and occupational therapy. Continue current wound care. Patient will require hyperbaric treatment. Await approval for skilled placement. Diabetes mellitus type 2 insulin-dependent with hyperglycemia: Continue basal insulin. Will monitor Accu-Cheks to adjust medication for better control. Anemia of chronic disease: Patient did receive 1 unit of blood last week. Continue with iron supplementation. Severe peripheral vascular disease: Continue Plavix. Patient will require vascular surgery assessment at long-term acute care facility to consider options of care. Mixed hyperlipidemia: Continue medication Hypertension: Continue medication. CAD: Continue medication. Time Spent Managing Pts Care (In Minutes): 55
--- NOTE | 2019-09-19 19:55 | PN ---
Subjective: Patient is lying in bed, continuing to have a challenge with her foot infection, which i s not improving at this time. The patient continued to have ulceration to the right foot without imp rovement. Denies any headache, nausea, vomiting, chest pain, abdominal pain, constipation, or diarrh ea. Objective: Vital Signs: Temperature 97, pulse 61, respirations 16, blood pressure 150/60. Lungs: Clear to auscultation. Heart: S1, S2. Regular. Abdomen: Soft, nontender. Bowel sounds present. Extremities: Right foot diabetic foot ulcer with osteomyelitis, status post debridement. Assessment And Plan: Continues to have large area of necrotic tissue, status post amputation of fift h toe and fifth metatarsal. We will appeal insurance denial and try to get the patient to [facility] for hyperbaric and revascularization. We will follow the patient closely. HOLLIE/CHRIS Voice ID: [id number] Report ID: [id number]
[2019-09-19] MEDS: ATORVASTATIN 10 MG TAB PO SCH (20:57)
[2019-09-20 05:13] LABS: Absolute Lymphocytes (CBC) 1.7 K/uL (0.7-4.9); Basophils % 1.4 % (0-1.3); Hematocrit 27.3 % (36.0-45.0); Lymphocytes % 27.1 % (15.3-44.8); MPV 8.2 fL (7.6-11.3)
[2019-09-20 05:52] LABS: Magnesium 2.3 mg/dL (1.8-2.4); Potassium 4.2 mmol/L (3.5-5.1)
[2019-09-20] MEDS: INSULIN -REGULAR HUMAN 50 UNIT/0.5 ML ML SQ SCH ×4 (07:30→21:00)
--- NOTE | 2019-09-20 08:48 | PN ---
Subjective: Patient is lying in bed. Denies any headache, nausea, vomiting, chest pain, abdominal p ain, constipation, or diarrhea. Objective: Vital Signs: Temperature 97, pulse 60, respirations 16, blood pressure 149/68. Lungs: Basal crackles. Heart: S1, S2. Regular. Abdomen: Soft, nontender. Bowel sounds present. Extremity: No edema. Right foot wound noted. Laboratory Data: WBC 7.4, hemoglobin 9, platelets 345. Chemistry shows sodium 142, potassium 4.1, c hloride 108, bicarb 28, BUN 35, creatinine 0.98, glucose 133. Microdata showing MRSA and Enterobacter cloacae from the right toe wound and right foot wound showing MRSA, Klebsiella oxytoca, and Enterobacter cloacae. Patient is currently being treated with IV cefepime and vancomycin. Continue antibiotic and wound ca re. Apply Dakin's solution to the wound for 10 minutes and then apply Santyl daily dressing pending transfer to long-term acute care for hyperbaric and continue wound care and IV antibiotic. We will f ollow patient as needed. NF/MODL Voice ID: [id number] Report ID: [id number]
[2019-09-20] MEDS: INSULIN GLARGINE 100 UNITS/ML SQ SCH (08:50)
[2019-09-20] MEDS: ENOXAPARIN 40 MG/0.4 ML SQ SCH (08:51)
[2019-09-20] MEDS: METOPROLOL TAR 50 MG TAB PO SCH ×2 (08:51→21:14)
[2019-09-20] MEDS: CEFEPIME/SWI 1gm 10 ML IV SCH ×2 (08:51→21:14)
[2019-09-20] MEDS: FERROUS GLUCONATE 324 MG TAB PO SCH ×2 (08:52→21:14)
[2019-09-20] MEDS: PREGABALIN 75 MG CAP PO SCH ×2 (08:52→21:14)
[2019-09-20] MEDS: CLOPIDOGREL 75 MG TABLET PO SCH (08:52)
[2019-09-20] MEDS: FUROSEMIDE 40 MG TABLET PO SCH (08:52)
[2019-09-20] MEDS: PROMOD 30 ML DOSE PO SCH ×2 (08:53→21:00)
[2019-09-20] MEDS: COLLAGENASE 30 GM OINTMENT TOP SCH (09:00)
--- NOTE | 2019-09-20 13:51 | PN ---
Subjective: Patient lying in bed. No new acute event. Chart reviewed. Objective: Vital Signs: Temperature 98, pulse 61, respirations 15, blood pressure 149/67. Lungs: Basal crackles. Heart: S1, S2. Regular. Abdomen: Soft, nontender. Bowel sounds present. Extremities: No edema. Foot wound noted. Laboratory Data: WBC 6.2, hemoglobin 8.9, platelets 297. Sodium 143, potassium 4.2, chloride 108, b icarb 29, BUN 36, creatinine 0.3, glucose 165. Micro data, MRSA and Enterobacter cloacae to the foot wound. Patient currently on cefepime and vancomycin. Assessment And Plan: Status post amputation of 5th toe and metatarsal bone. Patient continue to hav e a large area of necrotic tissue and slough. Pending appeal to transfer patient to [facility] , we will continue monitoring for signs of infection and continue to keep sugars under control. Foll ow the patient as needed. NF/MODL Voice ID: [id number] Report ID: [id number]
[2019-09-20] MEDS ORDERED: VANCOMYCIN 1.5 GM in NA CHLORIDE 0.9% 500 ML IVPB SCH (14:00)
[2019-09-20] MEDS: HYDROCODONE/APAP 10/325 TAB PO PRN (16:30)
--- NOTE | 2019-09-20 18:34 | P.DS ---
Admission Date: 09/09/19 Discharge Date: 09/20/19 Primary Care Provider: Dr. Millard; ID-Dr. Lieberman Disposition: RETIREMENT ACUTE CARE FACILITY Discharge Condition: GOOD Reason for Admission: Osteomyelitis of the right foot Consultations: Infectious disease Surgery Procedures: MRI: FINDINGS: Significant diminished T1 signal is present in the distal fifth metatarsal as well as the bones of the fifth toe. This is compatible with moderately severe osteomyelitis. The tissues surrounding the level of osteomyelitis are edematous. There is no drainable fluid collection. Areas of bone infarction or seen first metatarsal with areas of reactive edema in several tarsal bones. IMPRESSION: Moderate osteomyelitis involving the distal fifth metatarsal as well as the entire fifth toe. Surgery: Date of Procedure: 09/13/2019 Surgeon: Tonny Bond MD Procedures: Transmetatarsal amputation of right fifth toe. Impression: Osteomyelitis of the right foot status post transmetatarsal amputation of the right 5th digit with cultures positive for Enterobacter, Klebsiella and MRSA Diabetes mellitus type 2 insulin-dependent with hyperglycemia Anemia of chronic disease Severe peripheral vascular disease Mixed hyperlipidemia Hypertension CAD Brief History of Present Illness: 69-year-old female presented with right foot swelling. Patient with history of osteomyelitis. Recurrent osteomyelitis was suspected. Patient admitted for further evaluation and treatment. Hospital Course: Patient was found to have osteomyelitis of the right foot. Patient required transmetatarsal amputation of the right 5th digit. Cultures were positive for enterobacter, Klebsiella an MRI assay. Patient required long-term acute care facility placement with continued wound care, IV antibiotic therapy, and hyperbaric treatment. Patient currently on IV antibiotic therapy cefepime and vancomycin. Patient was initially denied long-term acute care facility placement. An appeal process followed. After the appeal process success with transfer to long-term acute care facility was arranged. Patient will continue with current care at the long-term acute care facility. Patient with underlying diabetes mellitus type 2 insulin-dependent, anemia of chronic disease, severe peripheral vascular disease, hyperlipidemia, hypertension, CAD. Will continue current medications at this time. If no success or improvement patient will likely require below-knee amputation in the near future. Vital Signs/Physical Exam: Temp Pulse Resp BP Pulse Ox 97.5 F 63 16 139/84 99 09/20/19 16:25 09/20/19 16:25 09/20/19 16:25 09/20/19 16:25 09/20/19 16:25 General: Alert, In no apparent distress, Oriented x3, Cooperative HEENT: Atraumatic Neck: Supple Respiratory: Clear to auscultation bilaterally Cardiovascular: Normal pulses, Regular rate/rhythm Gastrointestinal: Normal bowel sounds, Soft and benign, Non-distended Integumentary: Other (Right foot bandaged) Laboratory Data at Discharge: WBC 6.2 K/uL (4.3-10.9) D 09/20/19 04:45 Hgb 8.9 g/dL (12.0-15.0) L 09/20/19 04:45 Hct 27.3 % (36.0-45.0) L 09/20/19 04:45 Plt Count 297 K/uL (152-406) 09/20/19 04:45 Sodium 143 mmol/L (136-145) 09/20/19 04:45 Potassium 4.2 mmol/L (3.5-5.1) 09/20/19 04:45 BUN 36 mg/dL (7-18) H 09/20/19 04:45 Creatinine 0.93 mg/dL (0.55-1.3) 09/20/19 04:45 Glucose 72 mg/dL (74-106) L 09/20/19 04:45 Phosphorus 4.3 mg/dL (2.5-4.9) 09/18/19 05:30 Magnesium 2.3 mg/dL (1.8-2.4) 09/20/19 04:45 Total Bilirubin 0.2 mg/dL (0.2-1.0) 09/17/19 04:55 AST 27 U/L (15-37) 09/17/19 04:55 ALT 26 U/L (12-78) 09/17/19 04:55 Alkaline Phosphatase 115 U/L (45-117) 09/17/19 04:55 Home Medications: Furosemide [Lasix*] 40 mg PO DAILY 05/11/16 Metformin HCl [Metformin ER Osmotic] 1,000 mg PO BID 05/11/16 Metoprolol Tartrate [Lopressor*] 50 mg PO BID 05/11/16 Pravastatin [Pravachol*] 40 mg PO DAILY 05/11/16 Naproxen [Naprosyn] 500 mg PO BID 11/13/17 Pregabalin [Lyrica*] 75 mg PO BID 09/04/18 Clopidogrel Bisulfate [Plavix] 75 tab PO DAILY 01/19/19 Insulin Glargine/Lixisenatide [Soliqua 100 Unit-33 Mcg/ml Pen] 30 unit SQ DAILY 01/20/19 Patient Discharge Instructions: Patient be transferred to long-term acute care facility placement. Continue current medications. Diet: ADA Activity: Fall precautions Time spent managing pt's care (in minutes): 55
[2019-09-20 20:47] VITALS: BP 159/73; TEMP 98.2
[2019-09-20] MEDS: ATORVASTATIN 10 MG TAB PO SCH (21:14)
[2019-09-20 22:47] VITALS: O2SAT 100
== END 2019-09-20 21:30 | DRG 617 ==
LOC: ER 16:53 → ERHOLD 22:11 → 2ND 23:39
PROVIDERS: ADMIT Family Medicine; ATTEND Family Medicine
PROC: 0Y6X0Z0 Detachment at Right 5th Toe, Complete, Open Approach (ICD-10-PCS; principal; 2019-09-13 12:30)
DX: E11.69 Type 2 diabetes mellitus with other specified complication (principal); M86.171 Other acute osteomyelitis, right ankle and foot; E11.621 Type 2 diabetes mellitus with foot ulcer; E11.65 Type 2 diabetes mellitus with hyperglycemia; E78.2 Mixed hyperlipidemia; I25.10 Atherosclerotic heart disease of native coronary artery without angina pectoris; D63.8 Anemia in other chronic diseases classified elsewhere; I73.9 Peripheral vascular disease, unspecified; B96.89 Other specified bacterial agents as the cause of diseases classified elsewhere; B95.62 Methicillin resistant Staphylococcus aureus infection as the cause of diseases classified elsewhere; Z79.4 Long term (current) use of insulin; Z95.5 Presence of coronary angioplasty implant and graft
CPT/HCPCS: 36415; 36430; 71045; 80048; 80053; 80202; 81003; 81015; 82274; 82728; 82947; 83540; 83605; 83735; 84100; 84145; 84466; 85014; 85018; 85025; 85652; 86140; 86850; 86900; 86901; 87040; 87070; 87075; 87077; 87086; 87088; 87186; 87205; 88305; 88311; 93926; 94760; 96365; 96366; 96367; 96368; 97110; 97112; 97116; 97161; 97530; 99251; 99285; C9113; J0692; J1650; J1815; J2270; J2370; J2405; J2543; J2704; J3010; J3590; J7030; J7040; P9016

== ENCOUNTER 2020-03-05 14:18 | Emergency (ER) | payer OTHER ==
--- OUTSIDE RECORDS SUMMARY | 2020-03-05 14:21 | XMS REPORT | Continuity of Care Document ---
:1950 Author Organization [facility] t Address [address] [place] [address] Care Team Providers Name Role Phone Randi Ivan MD Attending Clinician Kim WEST, A Attending Clinician Unavailable Chary Delgado Attending Clinician Mata COLLINS Attending Clinician Eber COLLINS Attending Clinician Mata COLLINS Admitting Clinician Problems Condition Condition Condition Status Onset Resolution Last Treating Co mments Source Name Details Category Date Date Treatment Clinician Date Peripheral Peripheral Problem Active [facility] vascular vascular [facility] - disease disease Memoria due to due to l secondary secondary Outp ati diabetes diabetes ent Clinics Pure Pure Problem Active [facility] hyperchole hyperchole Jesusita kes - sterolemia sterolemia Me moria l Outpati ent Clinics Diabetic 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 polyneurop polyneurop Jesusita kes - athy athy Memoria associated associated l with type with type Outp ati 2 diabetes 2 diabetes en t mellitus mellitus Clinic s Essential Essential Problem Active [facility] hypertensi hypertensi Jesusita kes - on on Memoria l Outpati ent Clinics Diabetes Diabetes Problem [facility] 1.5, 1.5, [facility] - managed as managed as Me moria type 2 type 2 l Outpati ent Clinics Diabetic 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[facility] nephropath nephropath Jesusita kes - y y Memoria associated associated l with type with type Outp ati 2 diabetes 2 diabetes en t mellitus mellitus Clinic s 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 Clinics associated associated with type with type 2 diabetes 2 diabetes mellitus, mellitus, macular macular edema edema presence presence unspecifie unspecifie d d Traumatic Traumatic Problem Active [facility] ulcer, ulcer, [facility] - limited to limited to Me moria breakdown breakdown [facility] Encounter Encounter Problem Active [facility] for for [facility] - gynecologi gynecologi Me moria akhil akhil l examinatio examinatio Ou tpati n without n without ent abnormal abnormal Clinic s finding finding Postmenopa Postmenopa Problem Active [facility] usal usal [facility] - [facility] l [facility] ent Clinics Allergies, Adverse Reactions, Alerts This patient has no known allergies or adverse reactions. Medications Ordered Filled Start Stop Current Ordering Indication Dosage Frequency Signature Comments Components Source Medication Medication Date Date Medication? Clinician (SIG) Name Name One Touch One Touch 2017-09 Yes Mo [address] [facility] [address] Delica Delica 0-22 Colleen [facility] - Lancets Lancets 00:00: Memoria 00 [facility] ent [facility] One Touch One Touch 2017-09 2019- No Mo as [facility] Ultra Test Ultra Test 0-22 04-20 Colleen directed [facility] - Strips Strips 00:00: 00:00 Memoria 00 :00 [facility] [address] [facility] Lyrica Lyrica Yes Mo [address] 8-06 Colleen [facility] - 00:00: Memoria [address] [facility] [address] [facility] Metoprolol Metoprolol Yes Mo [address] [facility] [address] Tartrate Tartrate Colleen with food L ukes - [facility] Furosemide Furosemide Yes Mo [address] [facility] [address] [facility] Metformin Metformin Yes Mo [address] [address] HCl HCl Colleen with a Lukes - meal [facility] Clopidogrel Clopidogrel Yes Mo [address] Bisulfate Bisulfate Colleen Luke s - [facility] l [facility] ent Clinics Pravastatin Pravastatin Yes Mo [address] [facility] Sodium Sodium Colleen [facility] - [facility] Potassium Potassium Yes Mo [address] [facility] Chloride Chloride Colleen with food L ukes - [facility] ent Clinics Procedures This patient has no known procedures. Encounters Start End Encounter Admission Attending Care Care Encounter Source Date/Time Date/Time Type Type Clinicians Facility Department ID 2020-02-04 2020-02-04 [id number] 00:00:00 00:00:00 Randi Matias [id number] [place] [id number] Professio [id number] [facility] [address] [facility] 2020-01-24 2020-01-24 [facility] [id number] 00:00:00 00:00:00 Randi Matias [id number] [place] [id number] Professio [id number] [facility] [address] [facility] 2020-01-23 2020-01-23 Transition Karel Alvarez [id number] 00:00:00 00:00:00 of Care Jamir Britta Keating [id number] [place] [id number] [facility] 2020-01-20 2020-01-22 [facility] Ajay Fuentes Chary [facility] [id number] 15:50:49 15:49:00 Encounter Shaheen August [id number] [place] [id number] [place] [id number] [facility] 2019-05-14 2019-05-14 [facility] [id number] 14:48:59 16:09:33 Visit Justina Matias [id number] [place] [id number] Professio [id number] [facility] [address] [facility] 2019-01-23 2019-01-23 [facility] [id number] [facility] 11:44:00 11:44:00 [facility] ent Clinics 2019-01-03 2019-01-03 [facility] [id number] [address] 13:39:00 13:39:00 t [facility] Medicine Outpati ent Clinics 2018-09-20 2018-09-20 [facility] [id number] [address] 09:51:00 09:51:00 t [facility] Medicine Outpati ent Clinics 2018-09-04 2018-09-04 [facility] [id number] 15:15:00 15:15:00 t [facility] Medicine Outpati ent Clinics 2018-08-29 2018-08-29 [facility] [id number] [facility] 11:25:00 11:25:00 t [facility] Medicine Outpati ent Clinics 2018-07-09 2018-07-09 [facility] [id number] [facility] 15:30:00 15:30:00 t [facility] Medicine Outpati ent Clinics 2018-05-25 2018-05-25 [facility] [id number] [facility] 16:23:00 16:23:00 t [facility] Medicine Outpati ent Clinics 2018-05-11 2018-05-11 [facility] [id number] [facility] 12:34:00 12:34:00 t [facility] Medicine Outpati ent Clinics 2018-04-24 2018-04-24 [facility] [id number] [address] 10:45:00 10:45:00 t [facility] Medicine Outpati ent Clinics 2018-04-18 2018-04-18 [facility] [id number] [address] 15:42:00 15:42:00 t [facility] Medicine Outpati ent Clinics 2018-03-19 2018-03-19 [facility] [id number] 13:45:00 13:45:00 t [facility] Medicine Outpati ent Clinics 2018-02-07 2018-02-07 [id number] [facility] 13:45:00 13:45:00 t [facility] Medicine Outpati ent Clinics Results This patient has no known results.
--- OUTSIDE RECORDS SUMMARY | 2020-03-05 14:22 | XMS REPORT | Summary of Care ---
:1950 Author Organization [facility] Address [address] [place] [address] Care Team Providers Name Role Phone Ben Solis DO Primary Care Provider Reason for Referral (Routine) Status Reason Specialty Diagnoses / Referred By Referred To Procedures Contact Contact New Request ZO-VASCULAR Diagnoses Necrotic toes John Kenny, SURGERY Procedures Discharge Follow-Up: Specialty Service ZO-VASCULAR SURGERY; 4-[address] [place] [address]. [address] [place] [phone] (Routine) Status Reason Specialty Diagnoses / Referred By Referred To Procedures Contact Contact New Request IM-CARDIOVASCULAR Diagnoses Necrotic toes John Kenny, DISEASE Procedures Discharge Follow-Up: Specialty Service IM-CARDIOVASCULAR DISEASE; [address] [place] [address]. RT [address] [place] [phone] (Routine) Status Reason Specialty Diagnoses / Referred By Referred To Procedures Contact Contact New Request PO-BARREL DEDENTING MACHINE OPERATOR Diagnoses Necrotic toes John Kenny MD Procedures Discharge Follow-Up: Specialty Service PO-BARREL DEDENTING MACHINE OPERATOR; 4-[address] [place] [address]. RT [address] [place] [phone] (STAT) Status Reason Specialty Diagnoses / Referred By Contact Refe rred To Procedures Contact New Request ZO-SURGERY Diagnoses Necrotic juanitas John Kenny MD Procedures Discharge Follow-Up: Specialty Service ZO-SURGERY (Dr. Ivan); [address] [place] [address]. RT [address] [place] [phone] Phone: (TAYLER) Status Reason Specialty Diagnoses / Referred By Contact Refe rred To Procedures Contact New Request Diagnoses Necrotic toes John Kenny MD Aglieco, Fabio G, Procedures Discharge Follow-up: PCP BEN SOLIS; [address] [place] [address]. [address] [place], [place] [address] [place], [place] Phone: [phone] Fax: (TAYLER) Status Reason Specialty Diagnoses / Referred By Referred To Procedures Contact Contact New Request Vascular Procedures John Kenny, Sonography BILATERAL DUPLEX MD SCAN OF ARTERY BY [address] [place] [address] VASCULAR LAB [facility]. [address] [place] [address] (Routine) Status Reason Specialty Diagnoses / Referred By Referred To Procedures Contact Contact New Request Vascular Procedures Adam Ramirez, Sonography BASIL MULTI LEVEL MD BY VASCULAR LAB [address] [place] [phone] Radiology Services (STAT) Status Reason Specialty Diagnoses / Referred By Referred To Procedures Contact Contact New Request Diagnostic Diagnoses Ulcer of left foot, unspecified ulcer stage Gina, K Radiology Procedures XR FOOT 3+ VW LEFT Chary, PAC [address] [phone] Reason for Visit Reason Comments Diabetic Foot Ulcer Auth/Cert Status Reason Specialty Diagnoses / Referred By Referred To Procedures Contact Contact Emergency Medicine [facility] ergency Dept [address] [facility] [place] [address] Fax: Encounter Details Date Type Department Care Team Description 01/20/2020 - Hospital Encounter ADC Medicine Surgery Gina K Chary, PAC [id number] [place] [address] Necrotic toes 01/22/2020 Unit Shaheen August MD [address] [place] [phone] [place] [address] [place] [address] Allergies Active Allergy Reactions Severity Noted Date Comments Levofloxacin Nausea and/or Vomiting 02/03/2019 documented as of this encounter (statuses as of 01/22/2020) Medications Medication Sig Dispensed Refills Start Date End Date Status furosemide (LASIX) Take 40 mg by 0 Active 40 mg tablet mouth daily. pregabalin (LYRICA) Take 75 mg by 0 Active 75 mg capsule mouth 2 (two) times daily. metFORMIN 1,000 mg Take 1,000 mg 0 Active tablet by mouth 2 (two) times daily with meals. metoprolol Take 50 mg by 0 Activ e succinate 50 mg mouth 2 (two) CSpX times daily. pravastatin 40 mg Take 40 mg by 0 Active tablet mouth at bedtime. Furosemide 40 mg/4 Take 40 mg by 0 Active mL Soln mouth once now. insulin inject 30 30 Syringe 1 01/02/2019 Active glargine-lixisenati Units under de (SOLIQUA 100/33) the skin 100 unit-33 mcg/mL daily. InPnIndications: Type 2 diabetes mellitus with cardiac complication blood sugar Use as 200 Strip 1 01/02/2019 Active diagnostic directed. (ONETOUCH ULTRA E11.59- Twice BLUE TEST STRIP) daily stripIndications: Type 2 diabetes mellitus with cardiac complication lancets (ONE TOUCH Use as 200 Each 01/02/2019 Active DELICA) 33 gauge directed. MiscIndications: E11.59- Twice Type 2 diabetes daily mellitus with cardiac complication ramipril 1.25 mg Take 1.25 mg 0 Active capsule by mouth at bedtime. clopidogreL 75 mg Take 75 mg by 0 Active tablet mouth daily. aspirin 81 mg Take 81 mg by 0 Ac tive chewable tablet mouth daily. ergocalciferol, Take 50,000 12 capsule 0 01/29/2020 Active vitamin d2, 2,500 Units by unit mouth weekly. CapIndications: Necrotic toes ferrous sulfate 325 Take 1 tablet 60 tablet 2 01/24/202004/23 Active mg (65 mg iron) by mouth 2 tabletIndications: (two) times Necrotic toes daily for 90 days. lactobacillus Take 1 tablet 28 tablet 0 01/22/2020 02/05/2020 Active acidophilus 25 by mouth 2 million cell -100 (two) times mg daily for 14 captabIndications: days. Necrotic toes traMADol 50 mg Take 1 tablet 20 tablet 0 01/22/2020 Active tabletIndications: by mouth Necrotic toes every 8 (eight) hours as needed for Pain (scale 4-6) or Pain (scale 7-10). vitamin B-12 1,000 Take 1 tablet 90 tablet 0 01/22/20202019 Active mcg by mouth tabletIndications: daily for 90 Necrotic toes days. doxycycline hyclate Take 1 14 capsule 0 01/22/2020 01/29/20 20 Active 100 mg capsule by capsuleIndications: mouth every Necrotic toes 12 (twelve) hours for 7 days. cefdinir 300 mg Take 1 14 capsule 0 01/22/2020 01/29/2020 A ctive capsuleIndications: capsule by Necrotic toes mouth 2 (two) times daily for 7 days. naproxen 500 mg Take 500 mg 0 01/22/2020 D iscontinued tablet by mouth 2 (two) times daily with meals. documented as of this encounter (statuses as of 01/22/2020) Active Problems Problem Noted Date Necrotic toes 01/20/2020 Encounter for routine gynecological examination 2012 Overview: 02/04/2013- negative colorectal cards x 3. ICD10 Diagnosis Term Crossing [place] Utility Overweight 01/25/2013 Overview: ICD10 Diagnosis Term Crossing [place] [employer] documented as of this encounter (statuses as of 01/22/2020) Immunizations Name Administration Dates Next Due Td 09/18/2007 documented as of this encounter Social History Tobacco Use Types Packs/Day Years Used Date Never Smoker Smokeless Tobacco: Never Used Tobacco Cessation: Counseling Given: No Alcohol Use Drinks/Week oz/Week Comments No Sex Assigned at Date Recorded Not on file Job Start Date Occupation Industry Not on file Not on file Not on file Travel History Travel Start Travel End No recent travel history available. COVID-19 Exposure Response Date Recorded In the last month, have you been in contact with No / Unsure 01/20/2020 2:42 PM CDT someone who was confirmed or suspected to have Coronavirus / COVID-19? documented as of this encounter Last Filed Vital Signs Vital Sign Reading Time Taken Comments Blood Pressure 130/62 01/22/2020 10:32 AM CDT Pulse 71 01/22/2020 10:32 AM CDT Temperature 36.2 C (97.1 F) 01/22/2020 10:32 AM CDT Respiratory Rate 16 01/22/2020 10:32 AM CDT Oxygen Saturation 96% 01/22/2020 10:32 AM CDT Inhaled Oxygen - - Concentration Weight 71.7 kg (158 lb) 01/20/2020 8:31 bedscale upon PM CDT admission to [facility] or. Height 165.1 cm (5' 5") 01/20/2020 8:31 PM CDT Body Mass Index 26.29 01/20/2020 8:31 PM CDT documented in this encounter Discharge Summaries John Kenny MD - 01/22/2020 1:10 PM CDT Internal Medicine Discharge Summary ADMIT DATE: 01/20/2020 DISCHARGE DATE: 01/22/2020 ATTENDING MD: John Kenny MD PCP: Ben Solis FINAL DIAGNOSIS: (the reason, after study, for admitting the patient to the hospital) Necrotic toes HISTORY OF PRESENT ILLNESS Mildred Kelly is a 69 year old female who presents with left toe pain. Noticed 2 weeks ago an ulcer develop on her left 2nd toe. Seen by ID Dr. Lieberman in [facility]. Was undergoing vascular workup for PAD.Patient mentions she has an appointment this "for them to open it up", unclear exactly what procedure was planned. Noticed it turn black earlier today. Home health nurse recommended coming to ER. HOSPITAL COURSE: Mildred Kelly is a 69 year old female with Dry gangrene of left second toe. Hx of recurrent diabetic foot ulcers. Left foot lateral diabetic ulcer DM gangerous 2nd left toe Arterial duplex shows some PAD but nothing significant for intervention IV zosyn day 3 IV vanc day 3. Monitor vanc levels F/u blood cultures - ngtd General surgery Dr. Ivan consulted from ER. S/p amputation of 2nd left toe on 01/21/[address] Ivan. Discussed with surgeon Dr. Katz today and cleared for discharge with outpatient f/u next week ID Dr. Lieberman consulted, cleared for discharge on omnicef and doxy for 7 days CODI, improved with IVF Trend BMP Recommended outpatient f/u with PCP Iron deficiency anemia Monitor for bleed, non reported IV venofer Ferrous sulfate Recommend outpatient GI and PCP f/u Vit b12 deficiency. Replace Vit d deficiency. Replace IDDM, A1c 7.6 Takes soliqua 30u qd Resume insulin at half dose when eating, can take her normal dm meds at home Hx CAD s/p CABG 2004 Was on aspirin, plavix, metoprolol, statin Inpatient held plavix - unclear indication, per patient maybe for PAD? Can resume plavix at home Prophylaxis: DVT-SCD Full Code, advance care planning discussed on admisison Spent greater than 35 mins on discharge including chart review, evaluating patient, discussing with patient and/or family, discussing with nursing and/or consultants, discharge summary, reconciling home medications and evaluating labs and imaging. Discharge Instructions: Follow up with general surgery next week face to face (either Dr. Ivan or Dr. Katz). Ideallyfollow up with Dr. Ivan next Monday, please confirm appointment. Minimize weight bearing on your left toes until surgery follow up. Local wet to dry daily wound care and can shower daily. Keep it dry. Follow up with ID Dr. Lieberman in 1-2 weeks and establish care with a family consumer science teacher. Follow up with primary care physician in 1-2 weeks about your blood pressure, kidney function labs, iron deficiency anemia (might need GI follow up), diabetes and Vitamin B12 and D deficiencies. Follow up with vascularsurgery in 2-3 months about peripheral arterial disease and please have routine follow up with your c ardiologist. CONSULTING SERVICES: Dr. Ivan - general surgery Dr. Lieberman - ID PROCEDURES: Left 2nd toe amputation SIGNIFICANT LAB/X-RAYS: LABS - reviewed pertinent labs as below: CBC BMP PT/INR WBC x10^3 (/CMM) Date Value 09/23/2010 6.2 WBC (10*3/L) Date Value 01/22/2020 6.50 NA Date Value 01/22/2020 139 mmol/L 09/23/2010 138 MMOL/L No results found for: PT RBC x10^6 (/CMM) Date Value 09/23/2010 4.10 RBC (10*6/L) Date Value 01/22/2020 3.14 (L) K Date Value 01/22/2020 4.5 mmol/L 09/23/2010 4.7 MMOL/L PT INR (no units) Date Value 11/07/2004 1.3 PLT x10^3 (/CMM) Date Value 09/23/2010 294 PLT (10*3/L) Date Value 01/22/2020 319 CALCIUM Date Value 01/22/2020 9.0 mg/dL 09/23/2010 8.9 MG/DL THB ART (G/DL) Date Value 10/25/2004 12.6 (L) HGB Date Value 01/22/2020 8.3 g/dL (L) 09/23/2010 10.9 G/DL (L) CL Date Value 01/22/2020 105 mmol/L 09/23/2010 105 MMOL/L aPTT HCT (%) Date Value 01/22/2020 27.2 (L) 09/23/2010 34.7 BUN Date Value 01/22/2020 29 mg/dL (H) 09/23/2010 24 MG/DL (H) APTT (SEC) Date Value 11/07/2004 37 CREATININE Date Value 01/22/2020 1.26 mg/dL (H) 09/23/2010 0.85 MG/DL IMAGING - reviewed Hospital Encounter on 01/20/20 XR FOOT 3+ VW LEFT Narrative EXAM: XR FOOT 3+ VW LEFT HISTORY: 69 year-old woman with diabetic wound COMPARISON: Left foot x-ray 02/03/2019 FINDINGS: Radiographs of the left foot demonstrate a large lateral forefoot ulceration with interval bony resorption/erosion of the fifth metatarsal head. Changes of Charcot arthropathy are noted with midfoot collapse and bony remodeling of the hind foot. Healed fifth toe proximal phalangeal fracture. Vascular calcifications are noted. Diffuse soft tissue swelling surrounding the ankle and foot. Impression Large lateral forefoot ulcer with interval improvement in findings of osteomyelitis in the distal fifth metatarsal shaft. However, there seems to be resorptive/erosion of portions of the head of the fifth metatarsal bone, therefore, residual Osteomyelitis cannot be entirely excluded. Clinical correlation and continued monitoring recommended. Preliminary Report Dictated by Resident: Mathew Addison MD., have reviewed this study and agree with the above report. FUNCTIONAL STATUS: ambulate with assistance DISCHARGE CONDITION: fair COGNITIVE STATUS: cognitively intact DIET: diabetic ACTIVITY: as tolerated DISCHARGE MEDICATIONS: Current Discharge Medication List START taking these medications Details cefdinir (OMNICEF) 300 mg Take 300 mg by mouth 2 (two) times daily. Qty: 14 capsule, Refills: 0 Start date: 01/22/2020, End date: 01/29/2020 Associated Diagnoses: Necrotic toes doxycycline hyclate (Vibramycin) 100 mg Take 100 mg by mouth every 12 (twelve) hours. Qty: 14 capsule, Refills: 0 Start date: 01/22/2020, End date: 01/29/2020 Associated Diagnoses: Necrotic toes ergocalciferol (vitamin D2) (ERGOCAL) 50,000 Units Take 50,000 Units by mouth weekly. Qty: 12 capsule, Refills: 0 Start date: 01/29/2020 Associated Diagnoses: Necrotic toes ferrous sulfate 325 mg Take 325 mg by mouth 2 (two) times daily. Qty: 60 tablet, Refills: 2 Start date: 01/24/2020, End date: 04/23/2020 Associated Diagnoses: Necrotic toes lactobacillus acidophilus (ACIDOPHILLUS) 1 tablet Take 1 tablet by mouth 2 (two) times daily. Qty: 28 tablet, Refills: 0 Start date: 01/22/2020, End date: 02/05/2020 Associated Diagnoses: Necrotic toes traMADol (ULTRAM) 50 mg Take 50 mg by mouth every 8 (eight) hours as needed for Pain (scale 4-6) or Pain (scale 7-10). Qty: 20 tablet, Refills: 0 Start date: 01/22/2020 Associated Diagnoses: Necrotic toes vitamin B-12 (CYANOCOBALAMIN) 1,000 mcg Take 1,000 mcg by mouth daily. Qty: 90 tablet, Refills: 0 Start date: 01/22/2020, End date: 04/21/2020 Associated Diagnoses: Necrotic toes CONTINUE these medications which have NOT CHANGED Details aspirin 81 mg Take 81 mg by mouth daily. clopidogreL (PLAVIX) 75 mg Take 75 mg by mouth daily. ramipril (ALTACE) 1.25 mg Take 1.25 mg by mouth at bedtime. furosemide (LASIX) 40 mg Take 40 mg by mouth daily. insulin glargine-lixisenatide (SOLIQUA 100/33) 30 Units inject 30 Units under the skin daily. Qty: 30 Syringe, Refills: 1 Associated Diagnoses: Type 2 diabetes mellitus with cardiac complication metFORMIN (GLUCOPHAGE) 1,000 mg Take 1,000 mg by mouth 2 (two) times daily with meals. metoprolol succinate (KAPSPARGO SPRINKLE) 50 mg Take 50 mg by mouth 2 (two) times daily. pravastatin (PRAVACHOL) 40 mg Take 40 mg by mouth at bedtime. pregabalin (LYRICA) 75 mg Take 75 mg by mouth 2 (two) times daily. blood sugar diagnostic (RainbowTOUCH ULTRA BLUE TEST STRIP) strip Use as directed. E11.59- Twice daily Qty: 200 Strip, Refills: 1 Associated Diagnoses: Type 2 diabetes mellitus with cardiac complication Furosemide 40 mg Take 40 mg by mouth once now. lancets (ONE TOUCH DELICA) 33 gauge Misc Use as directed. E11.59- Twice daily Qty: 200 Each, Refills: 1 Associated Diagnoses: Type 2 diabetes mellitus with cardiac complication STOP taking these medications naproxen (NAPROSYN) 500 mg Comments: Reason for Stopping: PATIENT EDUCATION PROVIDED: medications and wound care DISCHARGE: home health documented in this encounter Discharge Instructions Christa Fisher - 01/22/2020 12:28 PM CDTPlease make a 1-2 week follow up appointment with Dr Solis when you are discharged from the hospital. Dr Solis [address] [place] [phone] Additional InstructionsMila Pugh RN - 01/22/2020 Patient Discharge Instructions Discharge date: 01/22/2020 Procedure(s): Procedure(s): TOE AMPUTATION Discharge Orders Discharge Follow-up: PCP BEN SOLIS; 1 Week To PCP: BEN SOLIS [[id number]] Patient's Preferred Location: Unknown Discharge Disposition: Home Health not related to Admit, (ARS) When (Patients with risk for unplanned readmission score over 16 or those noted as Hospital Dependent should follow up within 7 days with PCP or primary DX specialist): 1 Week Risk of Unplanned Readmission:( Score greater than 16 indicates high risk) 10 1800 Calorie Diabetic Consistent Carbohydrates Diet - includes HS Snack; Texture: Regular. Texture Regular. Diabetic: IDDM Discharge Condition - Discharge Condition: FAIR Discharge Activity Discharge Activity: Ambulate with Assistance Discharge Follow-Up: Specialty Service ZO-SURGERY (Dr. Ivan); 1 Week Order Comments: Needs face to face with either Dr. Ivan or Dr. Katz next week Specialty: ZO-SURGERY [11] Dr. Ivan Patient's Preferred Location: [facility] Discharge Disposition: Home Health not related to Admit, (ARS) When (Patients with risk for unplanned readmission score over 16 or those noted as Hospital Dependent should follow up within 7 days with PCP or primary DX specialist): 1 Week Risk of Unplanned Readmission:( Score greater than 16 indicates high risk) 10 Discharge Follow-Up: Specialty Service PO-BARREL DEDENTING MACHINE OPERATOR; 4-6 Weeks Specialty: PO-BARREL DEDENTING MACHINE OPERATOR [123] Patient's Preferred Location: Unknown Discharge Disposition: Home Health not related to Admit, (ARS) When (Patients with risk for unplanned readmission score over 16 or those noted as Hospital Dependent should follow up within 7 days with PCP or primary DX specialist): 4-6 Weeks Risk of Unplanned Readmission:( Score greater than 16 indicates high risk) 10 Discharge Follow-Up: Specialty Service IM-CARDIOVASCULAR DISEASE; 2 Months Specialty: IM-CARDIOVASCULAR DISEASE [4] Patient's Preferred Location: Unknown Discharge Disposition: Home Health not related to Admit, (ARS) When (Patients with risk for unplanned readmission score over 16 or those noted as Hospital Dependent should follow up within 7 days with PCP or primary DX specialist): 2 Months Risk of Unplanned Readmission:( Score greater than 16 indicates high risk) 10 Discharge Follow-Up: Specialty Service ZO-VASCULAR SURGERY; 4-6 Weeks Specialty: ZO-VASCULAR SURGERY [50] Patient's Preferred Location: Unknown Discharge Disposition: Home Health not related to Admit, (ARS) When (Patients with risk for unplanned readmission score over 16 or those noted as Hospital Dependent should follow up within 7 days with PCP or primary DX specialist): 4-6 Weeks Risk of Unplanned Readmission:( Score greater than 16 indicates high risk) 10 VTE Propylaxis- Was ordered during hospitalization Discharge Instructions Order Comments: Follow up with general surgery next week face to face (either Dr. Ivan or Dr. Katz). Ideally follow up with Dr. Ivan next Monday, please confirm appointment. Minimize weight bearing on your left toes until surgery follow up. Local wet to dry daily wound care and can showerdaily. Keep it dry. Follow up with ID Dr. Lieberman in 1-2 weeks and establish care with a family consumer science teacher. Follow up with primary care physician in 1-2 weeks about your blood pressure, kidney function labs, iron deficiency anemia (might need GI follow up), diabetes and Vitamin B12 and D deficiencies. Follow up with vascular surgery in 2-3 months about peripheral arterial disease and please have routine follow up with your spring coiler. Home Health Order Order Comments: I certify that Mildred Kelly is under my care and that I, or a nurse practitioner or physician's therapist's assistant working with me, had a [id number] encounter with this patient on: 01/22/2020. The encounter with Mildred Kelly was in whole or in part, for the following medical condition(s), whichis the primary reason for home health care: Left toe amputation. I am ordering and certify that based on my findings the following services are medically necessary home health services: Evaluation and Treatment, Home Safety Eval and Physical Therapy Eval & Treatment [facility] Services: Wound Care: daily wet to dry w/ 0.9%NS to Left second toe, Medication Management and Teaching PCP follow up: Ben Solis Call lab results to: My clinical findings support the need for the services listed above because: Wound Care: Unable to manage own wound care and wound assessment Further, I certify that my clinical findings support that this patient is homebound (i.e. absences from home require considerable and taxing effort and are for medical reasons or yarsanism services or infrequently or of short duration when for other reasons) because: Requires assistance of supported devices to leave the home I understand and acknowledge that this is not a valid order until it is authenticated by a medical provider who has authority within their Scope of Practice to do so. I am inputting this information in my capacity as a scribe. Montez Millan RN Facility/Provider [facility] [address] [facility] [address] [place] [address] () [phone] (F) [phone] Take Home Medications These are medications ordered for you by your healthcare provider. Do not take any other medications or supplements unless advised by your healthcare provider. Current Discharge Medication List START taking these medications Details cefdinir 300 mg capsule Take 1 capsule by mouth 2 (two) times daily for 7 days. Qty: 14 capsule, Refills: 0 Associated Diagnoses: Necrotic toes doxycycline hyclate 100 mg capsule Take 1 capsule by mouth every 12 (twelve) hours for 7 days. Qty: 14 capsule, Refills: 0 Associated Diagnoses: Necrotic toes ergocalciferol, vitamin d2, 2,500 unit Cap Take 50,000 Units by mouth weekly. Qty: 12 capsule, Refills: 0 Associated Diagnoses: Necrotic toes ferrous sulfate 325 mg (65 mg iron) tablet Take 1 tablet by mouth 2 (two) times daily for 90 days. Qty: 60 tablet, Refills: 2 Associated Diagnoses: Necrotic toes lactobacillus acidophilus 25 million cell -100 mg captab Take 1 tablet by mouth 2 (two) times daily for 14 days. Qty: 28 tablet, Refills: 0 Associated Diagnoses: Necrotic toes traMADol 50 mg tablet Take 1 tablet by mouth every 8 (eight) hours as needed for Pain (scale 4-6) orPain (scale 7-10). Qty: 20 tablet, Refills: 0 Associated Diagnoses: Necrotic toes vitamin B-12 1,000 mcg tablet Take 1 tablet by mouth daily for 90 days. Qty: 90 tablet, Refills: 0 Associated Diagnoses: Necrotic toes CONTINUE these medications which have NOT CHANGED Details aspirin 81 mg chewable tablet Take 81 mg by mouth daily. clopidogreL 75 mg tablet Take 75 mg by mouth daily. ramipril 1.25 mg capsule Take 1.25 mg by mouth at bedtime. furosemide (LASIX) 40 mg tablet Take 40 mg by mouth daily. insulin glargine-lixisenatide (SOLIQUA 100/33) 100 unit-33 mcg/mL InPn inject 30 Units under the skin daily. Qty: 30 Syringe, Refills: 1 Associated Diagnoses: Type 2 diabetes mellitus with cardiac complication metFORMIN 1,000 mg tablet Take 1,000 mg by mouth 2 (two) times daily with meals. metoprolol succinate 50 mg CSpX Take 50 mg by mouth 2 (two) times daily. pravastatin 40 mg tablet Take 40 mg by mouth at bedtime. pregabalin (LYRICA) 75 mg capsule Take 75 mg by mouth 2 (two) times daily. blood sugar diagnostic (ONETOUCH ULTRA BLUE TEST STRIP) strip Use as directed. E11.59- Twice daily Qty: 200 Strip, Refills: 1 Associated Diagnoses: Type 2 diabetes mellitus with cardiac complication Furosemide 40 mg/4 mL Soln Take 40 mg by mouth once now. lancets (ONE TOUCH DELICA) 33 gauge Misc Use as directed. E11.59- Twice daily Qty: 200 Each, Refills: 1 Associated Diagnoses: Type 2 diabetes mellitus with cardiac complication STOP taking these medications naproxen 500 mg tablet Comments: Reason for Stopping: For questions regarding follow-up instructions call the Healthcare Hotline at or For worsening symptoms/changing condition/problems or questions: Non-emergency/urgent: Call the Healthcare Hotline at or Emergency: Go to the closest emergency room or call 911 If you receive the patient satisfaction survey by mail please complete and return and let us know how we are doing. TOBACCO AVOIDANCE Exposure to tobacco either from smoking or from second hand (environmental) smoke or smokeless tobacco (snuff) is damaging to your health. This information is to encourage everyone to avoid tobacco exposure. It is recommended that you: ? If you smoke or use smokeless tobacco, we encourage you to quit. ? If you have already quit smoking, continue your good work! ? If you do not smoke or use smokeless tobacco, do not start. ? Avoid secondhand smoke. Additional Resources You may want to contact these organizations for further information on smoking and how to quit. [place] [employer], http://www.lungusa.org/stop-smoking/ [place] [employer], http://www.cancer.org/Healthy/StayAwayfromTobacco/index [place] [employer], http://www.heart.org/HEARTORG/GettingHealthy/QuitSmoking/Quit-Smoking_M _001085_SubHomePage.jsp AttachmentsThe following attachments cannot be sent through Care Everywhere. Wound Care (Albanian)Ergocalciferol, Vitamin D2 tablets or capsules ([place]banian) Vitamin B12 oral ([place]banian)Iron tablets, capsules, extended-release tablets ([place]banian)Tramadol tablets ([place]banian)Cefdinir capsules ([place]banian)Lactobacillus Oral formulations ([place]banian)Doxycycline tablets or capsules ([place]banian)documented in this encounter Progress Notes Bettina Land - 01/22/2020 1:45 PM CDTRoutine rounding visit. Patient seemed relaxed and stated that her spirit was doing ok today. Cold Strip Feeder offered and patient accepted prayer. Patient expressed gratitude for the visit. 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 John Spears MD - 01/22/2020 12:48 PM CDT Hospitalist Progress Note SUBJECTIVE: Pain under control fevers/chills, chest pain, sob, diarrhea, abd pain S/p amputation yesterday Ok with discharge plan today CURRENT MEDICATIONS - reviewed. Current Facility-Administered Medications Medication Dose Route Frequency Last Rate Last Dose benzonatate (TESSALON PERLES) capsule 100 mg 100 mg Oral Q6HPRN 100 mg at 01/21/20 2329 codeine-guaifenesin (ROBITUSSIN AC) 10-100 mg/5 mL solution 10 mL 10 mL Oral TIDPRN cyanocobalamin (VITAMIN B12) injection 1,000 mcg 1,000 mcg Subcutaneous Q24H ergocalciferol (vitamin d2) (CALCIFEROL) capsule 50,000 Units 50,000 Units Oral QWEEKLY 50,000 Units at 01/22/20 0904 [START ON 01/24/2020] ferrous sulfate tablet 325 mg 325 mg Oral BID insulin glargine (LANTUS U-100) injection 15 Units 15 Units Subcutaneous DAILY iron sucrose (VENOFER) 200 mg in NaCl 0.9% (NS) 100 mL infusion 200 mg IV Infusion DAILY 200 mg at 01/21/20 1232 lactated ringers IV infusion 1,000 mL 1,000 mL IV Infusion CONTINUOUS 50 mL/hr at 01/22/20 61172,000 mL at 01/22/20 0901 lactobacillus acidophilus (ACIDOPHILLUS) 25 million cell -100 mg captab 1 tablet 1 tablet Oral BID 1 tablet at 01/22/20 0904 piperacillin-tazobactam (ZOSYN) 3.375 gram/50 mL Piggyback RTU 3.375 g 3.375 g IV Piggyback Q6HABX 3.375 g at 01/22/20 1158 Vancomycin 750 mg in NaCl 0.9% (NS) 250 mL VIAL-MATE 750 mg IV Piggyback Q12H ABX 750 mg at 01/22/20 0902 acetaminophen (TYLENOL) tablet 650 mg 650 mg Oral Q6HPRN 650 mg at 01/21/20 1318 aspirin chewable tablet 81 mg 81 mg Oral DAILY 81 mg at 01/22/20 0904 dextrose 50 % in water (D50W) injection 25 mL 25 mL Slow IV Push PRN furosemide (LASIX) tablet 40 mg 40 mg Oral DAILY 40 mg at 01/22/20 0904 glucagon (GLUCAGEN DIAGNOSTIC KIT) injection 1 mg 1 mg Intramuscular PRN HYDROcodone-acetaminophen (NORCO 5) 5-325 mg tablet 1 tablet 1 tablet Oral Q6HPRN 1 tablet at01/22/20 1023 metoprolol succinate XL (TOPROL XL) tablet 50 mg 50 mg Oral BID 50 mg at 01/22/20 0904 pravastatin (PRAVACHOL) tablet 40 mg 40 mg Oral QHS 40 mg at 01/21/20 2100 pregabalin (LYRICA) capsule 75 mg 75 mg Oral BID 75 mg at 01/22/20 0904 Sliding Scale Insulin - Lispro (HumaLOG) + Fsbg Testing Subcutaneous TID MEALS+HS Stopped at01/22/20 0800 PHYSICAL EXAM: BP 130/62 | Pulse 71 | Temp 36.2 C (97.1 F) (Temporal Artery) | Resp 16 | Ht 1.651 m (5' 5") | Wt 71.7 kg (158 lb) | LMP 09/18/2002 | SpO2 96% | BMI 26.29 kg/m Temp: [35.9 C (96.7 F)-36.7 C (98 F)] Pulse: [59-71] Resp: [11-21] BP: (130-155)/(50-84) POCT Blood Glucose (manual): [151 mg/dL-292 mg/dL] Intake/Output Summary (Last 24 hours) at 01/22/2020 1249 Last data filed at 01/22/2020 1200 Gross per 24 hour Intake 900 ml Output Net 900 ml NAD Anicteric sclera, oral mucosa clear Good air entry b/l RRR, nl s1s2 Abd soft NT AAO, no gross deficits Skin warm and dry Had left necrotic 2nd toe s/p amputation LABS/IMAGING - reviewed, pertinent results as below: CBC BMP PT/INR WBC x10^3 (/CMM) Date Value 09/23/2010 6.2 WBC (10*3/L) Date Value 01/22/2020 6.50 NA Date Value 01/22/2020 139 mmol/L 09/23/2010 138 MMOL/L No results found for: PT RBC x10^6 (/CMM) Date Value 09/23/2010 4.10 RBC (10*6/L) Date Value 01/22/2020 3.14 (L) K Date Value 01/22/2020 4.5 mmol/L 09/23/2010 4.7 MMOL/L PT INR (no units) Date Value 11/07/2004 1.3 PLT x10^3 (/CMM) Date Value 09/23/2010 294 PLT (10*3/L) Date Value 01/22/2020 319 CALCIUM Date Value 01/22/2020 9.0 mg/dL 09/23/2010 8.9 MG/DL THB ART (G/DL) Date Value 10/25/2004 12.6 (L) HGB Date Value 01/22/2020 8.3 g/dL (L) 09/23/2010 10.9 G/DL (L) CL Date Value 01/22/2020 105 mmol/L 09/23/2010 105 MMOL/L aPTT HCT (%) Date Value 01/22/2020 27.2 (L) 09/23/2010 34.7 BUN Date Value 01/22/2020 29 mg/dL (H) 09/23/2010 24 MG/DL (H) APTT (SEC) Date Value 11/07/2004 37 CREATININE Date Value 01/22/2020 1.26 mg/dL (H) 09/23/2010 0.85 MG/DL IMAGING- Hospital Encounter on 01/20/20 XR FOOT 3+ VW LEFT Narrative EXAM: XR FOOT 3+ VW LEFT HISTORY: 69 year-old woman with diabetic wound COMPARISON: Left foot x-ray 02/03/2019 FINDINGS: Radiographs of the left foot demonstrate a large lateral forefoot ulceration with interval bony resorption/erosion of the fifth metatarsal head. Changes of Charcot arthropathy are noted with midfoot collapse and bony remodeling of the hind foot. Healed fifth toe proximal phalangeal fracture. Vascular calcifications are noted. Diffuse soft tissue swelling surrounding the ankle and foot. Impression Large lateral forefoot ulcer with interval improvement in findings of osteomyelitis in the distal fifth metatarsal shaft. However, there seems to be resorptive/erosion of portions of the head of the fifth metatarsal bone, therefore, residual Osteomyelitis cannot be entirely excluded. Clinical correlation and continued monitoring recommended. Preliminary Report Dictated by Resident: Mathew Addison MD., have reviewed this study and agree with the above report. ASSESSMENT/PLAN Mildred Kelly is a 69 year old female with Dry gangrene of left second toe. Hx of recurrent diabetic foot ulcers. Left foot lateral diabetic ulcer DM gangerous 2nd left toe Arterial duplex shows some PAD but nothing significant for intervention IV zosyn day 3 IV vanc day 3. Monitor vanc levels F/u blood cultures - ngtd General surgery Dr. Ivan consulted from ER. S/p amputation of 2nd left toe on 01/21/[address] Ivan. Discussed with surgeon Dr. Katz today and cleared for discharge with outpatient f/u next week ID Dr. Lieberman consulted, cleared for discharge on omnicef and doxy for 7 days CODI, improved with IVF Trend BMP Recommended outpatient f/u with PCP Iron deficiency anemia Monitor for bleed, non reported IV venofer Ferrous sulfate Recommend outpatient GI and PCP f/u Vit b12 deficiency. Replace Vit d deficiency. Replace IDDM, A1c 7.6 Takes soliqua 30u qd Resume insulin at half dose when eating, can take her normal dm meds at home Hx CAD s/p CABG 2004 Was on aspirin, plavix, metoprolol, statin Inpatient held plavix - unclear indication, per patient maybe for PAD? Can resume plavix at home Prophylaxis: DVT- SCD Full Code, advance care planning discussed on admisison Spent greater than 35 mins on discharge including chart review, evaluating patient, discussing with patient and/or family, discussing with nursing and/or consultants, discharge summary, reconciling home medications and evaluating labs and imaging. Discharge Instructions: Follow up with general surgery next week face to face (either Dr. Ivan or Dr. Katz). Ideallyfollow up with Dr. Ivan next Monday, please confirm appointment. Minimize weight bearing on your left toes until surgery follow up. Local wet to dry daily wound care and can shower daily. Keep it dry. Follow up with ID Dr. Lieberman in 1-2 weeks and establish care with a family consumer science teacher. Follow up with primary care physician in 1-2 weeks about your blood pressure, kidney function labs, iron deficiency anemia (might need GI follow up), diabetes and Vitamin B12 and D deficiencies. Follow up with vascularsurgery in 2-3 months about peripheral arterial disease and please have routine follow up with your c ardiologist. Santiago Melo MD - 01/22/2020 12:10 PM CDT GENERAL SURGERY, DAILY PROGRESS NOTE Patient Name: Mildred Kelly Date of : 1950 Date: 01/22/2020 Surgery Date: 01/21/2020 Procedure: Left 2nd toe amputation 1 Day Post-Op 24 HOUR EVENTS: - No acute event - Pain is well controlled with current pain regimen - Patient feeling better today Objective: Vital Signs Temp: [35.9 C (96.7 F)-36.7 C (98 F)] Pulse: [59-71] Resp: [11-21] BP: (130-155)/(50-84) POCT Blood Glucose (manual): [89 mg/dL-292 mg/dL] Intake/Output Intake/Output Summary (Last 24 hours) at 01/22/2020 1210 Last data filed at 01/22/2020 0901 Gross per 24 hour Intake 850 ml Output Net 850 ml PHYSICAL EXAM Constitutional: No acute distress, alert and oriented Eyes: No gross deformities, extraocular movements grossly intact Cardiovascular: Normal S1/S2, no additional heart sounds noted Respiratory: Breath sounds equal bilaterally, no wheezing, rales, or rhonchi GI: Soft, nontender, nondistended, Vascular: Radial and dorsalis pedis pulses palpable bilaterally Neurologic: Grossly intact Psychiatric: appropriate mood and affect, no obvious deficits of insight or judgment Hematologic/lymphatic: No axillary, inguinal, or cervical lymphadenopathy Musculoskeletal: The wound without discharge or bleeding. Wick was removed. The wound was irrigated with hydrogen peroxide and redressed with gauze and Kerlix. Wrapped with Acewrap. Labs/Radiology CBC WBC x10^3 (/CMM) Date Value 09/23/2010 6.2 WBC (10*3/L) Date Value 01/22/2020 6.50 RBC x10^6 (/CMM) Date Value 09/23/2010 4.10 RBC (10*6/L) Date Value 01/22/2020 3.14 (L) PLT x10^3 (/CMM) Date Value 09/23/2010 294 PLT (10*3/L) Date Value 01/22/2020 319 THB ART (G/DL) Date Value 10/25/2004 12.6 (L) HGB Date Value 01/22/2020 8.3 g/dL (L) 09/23/2010 10.9 G/DL (L) HCT (%) Date Value 01/22/2020 27.2 (L) 09/23/2010 34.7 BMP NA Date Value 01/22/2020 139 mmol/L 09/23/2010 138 MMOL/L K Date Value 01/22/2020 4.5 mmol/L 09/23/2010 4.7 MMOL/L CALCIUM Date Value 01/22/2020 9.0 mg/dL 09/23/2010 8.9 MG/DL CL Date Value 01/22/2020 105 mmol/L 09/23/2010 105 MMOL/L BUN Date Value 01/22/2020 29 mg/dL (H) 09/23/2010 24 MG/DL (H) CREATININE Date Value 01/22/2020 1.26 mg/dL (H) 09/23/2010 0.85 MG/DL GLUCOSE Date Value 01/22/2020 127 mg/dL (H) 09/23/2010 106 MG/DL CO2 TOTAL Date Value 01/22/2020 26 mmol/L 09/23/2010 22 MMOL/L (L) PH ART (no units) Date Value 10/24/2004 7.40 PCO2 ART (MM/HG) Date Value 10/24/2004 37 PO2 ART (MM/HG) Date Value 10/24/2004 122 (H) %O2HB ART (%) Date Value 10/23/2004 96.5 NA (MEQ/L) Date Value 10/24/2004 136 K+ (MEQ/L) Date Value 10/24/2004 4.4 AC CA IONZ (MG/DL) Date Value 10/24/2004 4.40 (L) Xr Foot 3+ Vw Left Result Date: 01/21/2020 Large lateral forefoot ulcer with interval improvement in findings of osteomyelitis in the distal fifth metatarsal shaft. However, there seems to be resorptive/erosion of portions of the head of the fifth metatarsal bone, therefore, residual Osteomyelitis cannot be entirely excluded. Clinical correlation and continued monitoring recommended. Preliminary Report Dictated by Resident: Tavon Kerr I, Mathew Laughlin MD., have reviewed this study and agree with the above report. MEDICATIONS Scheduled Medications cyanocobalamin 1,000 mcg Q24H ergocalciferol (vitamin d2) 50,000 Units QWEEKLY [START ON 01/24/2020] ferrous sulfate 325 mg BID insulin glargine 15 Units DAILY iron sucrose (VENOFER) IV infusion 200 mg DAILY lactobacillus acidophilus 1 tablet BID piperacillin-tazobactam 3.375 g Q6H ABX vancomycin (VANCOCIN) 750 mg in 250 mL NS VIAL-MATE 750 mg Q12H ABX aspirin 81 mg DAILY furosemide 40 mg DAILY metoprolol succinate XL 50 mg BID pravastatin 40 mg QHS pregabalin 75 mg BID insulin lispro (human) TID MEALS+HS IV Medications/Drips lactated ringers Last Rate: 1,000 mL (01/22/20 0901) PRN Medications benzonatate 100 mg Q6HPRN codeine-guaifenesin 10 mL TIDPRN acetaminophen 650 mg Q6HPRN dextrose 50 % in water (D50W) 25 mL PRN glucagon 1 mg PRN HYDROcodone-acetaminophen 1 tablet Q6HPRN Patient Active Problem List Diagnosis Overweight Encounter for routine gynecological examination Necrotic toes Assessment/ Plan: Mildred Kelly is a 69 year old female with history of DM and CAD s/p CABG who is admitted to medicine with wet gangrene on the left 2nd toe, now s/p left 2nd toe amputation. Patient is recovering well and WBC trending down. Patient can be discharged with home health care, from our stand point. Needs follow up by Dr. Ivan on next Monday. Abx per ID recommendation. Local wound care with soap and water daily. Minimize weight bearing until follow up. The patient was seen and discussed with Dr. Katz. Santiago Loco MD General Surgery Resident PGY3 Associated attestation - Olesya Katz MD - 01/22/2020 1:13 PM CDTAttending Attestation: I personally evaluated and examined the patient on 01/22/[address] Loco's progress note as written. I actively participated in the decision- making process. Please see the resident's note for additional details. Patient doing well with minimal postoperative pain. Amputation site C/D/I. Patient may be discharged with [facility]. Follow up in 1 week with either myself or Dr. Ivan. Wound care instructions discussed with Dr. Kenny. Olesya Katz M.D. 01/22/2020 13:12SmootDelilah LBSW - 01/22/2020 11:23 AM CDTSubjective Patient ID: Mildred Kelly is a 69 year old female. Care Management Social Functional Assessment Patient Name: Mildred Kelly Age: [age] year old Sex: female Patient's Previous Admission Date at [facility]: 11/07/2004 Current diagnosis and co-morbidities: Necrotic toes Readmission Questions: Was patient discharged from any acute care hospital within the last 30 days: No Social Functional Assessment: Primary language spoken/preferred: Haitian Mental Status: Alert & Oriented to Person,Place & Time Information given by: Self Patient's support system: Child Name and number of support system: Rigoberto Mi, son [phone] Primary Facing Baster Jumpbasting: Self;Child MPOA: No Living Arrangement: Mobile Home Address of living arrangement : [address] [place] [address] [facility] [address] Persons living in home: Self Barriers to returning home: None Baseline functional status- ambulation: Requires minimal to moderate assistance Functional status-baseline personal care: Requires minimal to moderate assistance Baseline functional status- driving: Dependent Baseline functional status- grocery shopping: Dependent Functional status-baseline housekeeping: Requires minimal to moderate assistance Functional status-baseline meal prep: Requires minimal to moderate assistance Current functional status same as prior: Yes Do you have a PCP?: Yes Name of PCP: Dr. Solis Home Health Care Agency: Yes Name of Home Health Agency: [place] [address] [address] [place] [address] () [phone] (F) [phone] Previous or current Home Health Care Agency: Current Provider Services: No DME Company: No Equipment: Walker Hemodialysis: No Community resources utilized: None Funding Resources: Medicare Replacement;Medicaid Medicare Replacement name and information: [facility] Prescription coverage plan: Medicaid-3 slots Pharmacy where meds are filled: Other Other pharmacy: [facility] Anticipated services prior to disharge: Continue Medical Eval Expected mode of discharge transportation: Same as support system Additional Recommendations for DC: Medical clearance and will resume services with [facility] Additional info required for discharge planning: Pending medical evaluation Recommended discharge plan: Home;Update/Resume orders SFA Complete: Social Functional Assessment complete: Yes Alcohol Use Screening (AUDIT-C) How often do you have a drink containing alcohol?: Never SCORE: 0 Did patient elect to have resources provided: No Role of Care Management explained. Any issues or concerns with obtaining/affording your medications at home: no. 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 Review of Systems Objective Physical Exam Assessment/Plan Home and will resume services with [facility] [employer] Sales Representative - Care Management [facility] [phone] [email or web address] Kevin Peralta LMSW - 01/21/2020 5:33 PM CDTSocial Work Note Sw made multiple attempts to do SFA patient did not answer will complete SFA later. Kevin Jenkins LMSW Instruments Sales Representative, Care Management John Spears MD - 01/21/2020 5:19 PM CDT Hospitalist Progress Note SUBJECTIVE: Seen before surgery No pain, fevers/chills, chest pain, sob, diarrhea, abd pain CURRENT MEDICATIONS - reviewed. Current Facility-Administered Medications Medication Dose Route Frequency Last Rate Last Dose cyanocobalamin (VITAMIN B12) injection 1,000 mcg 1,000 mcg Subcutaneous Q24H [START ON 01/22/2020] ergocalciferol (vitamin d2) (CALCIFEROL) capsule 50,000 Units 50,000 Units Oral QWEEKLY [START ON 01/24/2020] ferrous sulfate tablet 325 mg 325 mg Oral BID iron sucrose (VENOFER) 200 mg in NaCl 0.9% (NS) 100 mL infusion 200 mg IV Infusion DAILY 200 mg at 01/21/20 1232 lactated ringers IV infusion 1,000 mL 1,000 mL IV Infusion CONTINUOUS lactobacillus acidophilus (ACIDOPHILLUS) 25 million cell -100 mg captab 1 tablet 1 tablet Oral BID 1 tablet at 01/21/20 0959 piperacillin-tazobactam (ZOSYN) 3.375 gram/50 mL Piggyback RTU 3.375 g 3.375 g IV Piggyback Q6HABX 3.375 g at 01/21/20 1704 Vancomycin 750 mg in NaCl 0.9% (NS) 250 mL VIAL-MATE 750 mg IV Piggyback Q12H ABX 750 mg at 01/21/20 1000 acetaminophen (TYLENOL) tablet 650 mg 650 mg Oral Q6HPRN 650 mg at 01/21/20 1318 aspirin chewable tablet 81 mg 81 mg Oral DAILY 81 mg at 01/21/20 0959 dextrose 50 % in water (D50W) injection 25 mL 25 mL Slow IV Push PRN furosemide (LASIX) tablet 40 mg 40 mg Oral DAILY 40 mg at 01/21/20 0959 glucagon (GLUCAGEN DIAGNOSTIC KIT) injection 1 mg 1 mg Intramuscular PRN HYDROcodone-acetaminophen (NORCO 5) 5-325 mg tablet 1 tablet 1 tablet Oral Q6HPRN metoprolol succinate XL (TOPROL XL) tablet 50 mg 50 mg Oral BID 50 mg at 01/21/20 0959 morpHINE injection 2 mg 2 mg Slow IV Push Q4HPRN pravastatin (PRAVACHOL) tablet 40 mg 40 mg Oral QHS pregabalin (LYRICA) capsule 75 mg 75 mg Oral BID 75 mg at 01/21/20 0800 Sliding Scale Insulin - Lispro (HumaLOG) + Fsbg Testing Subcutaneous TID MEALS+HS 1 Units at01/21/20 1701 Facility-Administered Medications Ordered in Other Encounters Medication Dose Route Frequency Last Rate Last Dose FENTanyl PF (SUBLIMAZE (PF)) injection ONCE INTRA PROCEDURE 25 mcg at 01/21/20 1444 lactated ringers IV infusion CONTINUOUS PRN Stopped at 01/21/20 1535 midazolam (VERSED) injection ONCE INTRA PROCEDURE 2 mg at 01/21/20 1442 PHYSICAL EXAM: BP 131/63 | Pulse 66 | Temp 35.9 C (96.7 F) (Temporal Artery) | Resp 16 | Ht 1.651 m (5' 5") | Wt 71.7 kg (158 lb) | LMP 09/18/2002 | SpO2 99% | BMI 26.29 kg/m Temp: [35.6 C (96 F)-37.2 C (98.9 F)] Pulse: [65-81] Resp: [11-21] BP: (112-166)/(50-90) POCT Blood Glucose (manual): [89 mg/dL-208 mg/dL] Intake/Output Summary (Last 24 hours) at 01/21/2020 1725 Last data filed at 01/21/2020 1535 Gross per 24 hour Intake 250 ml Output 800 ml Net -550 ml NAD Anicteric sclera, oral mucosa clear Good air entry b/l RRR, nl s1s2 Abd soft NT AAO, no gross deficits Skin warm and dry Has left necrotic 2nd toe LABS/IMAGING - reviewed, pertinent results as below: CBC BMP PT/INR WBC x10^3 (/CMM) Date Value 09/23/2010 6.2 WBC (10*3/L) Date Value 01/21/2020 9.10 NA Date Value 01/21/2020 138 mmol/L 09/23/2010 138 MMOL/L No results found for: PT RBC x10^6 (/CMM) Date Value 09/23/2010 4.10 RBC (10*6/L) Date Value 01/21/2020 2.96 (L) K Date Value 01/21/2020 4.3 mmol/L 09/23/2010 4.7 MMOL/L PT INR (no units) Date Value 11/07/2004 1.3 PLT x10^3 (/CMM) Date Value 09/23/2010 294 PLT (10*3/L) Date Value 01/21/2020 327 CALCIUM Date Value 01/21/2020 8.6 mg/dL 09/23/2010 8.9 MG/DL THB ART (G/DL) Date Value 10/25/2004 12.6 (L) HGB Date Value 01/21/2020 7.7 g/dL (L) 09/23/2010 10.9 G/DL (L) CL Date Value 01/21/2020 106 mmol/L 09/23/2010 105 MMOL/L aPTT HCT (%) Date Value 01/21/2020 24.6 (L) 09/23/2010 34.7 BUN Date Value 01/21/2020 35 mg/dL (H) 09/23/2010 24 MG/DL (H) APTT (SEC) Date Value 11/07/2004 37 CREATININE Date Value 01/21/2020 0.95 mg/dL 09/23/2010 0.85 MG/DL IMAGING- Hospital Encounter on 01/20/20 XR FOOT 3+ VW LEFT Narrative EXAM: XR FOOT 3+ VW LEFT HISTORY: 69 year-old woman with diabetic wound COMPARISON: Left foot x-ray 02/03/2019 FINDINGS: Radiographs of the left foot demonstrate a large lateral forefoot ulceration with interval bony resorption/erosion of the fifth metatarsal head. Changes of Charcot arthropathy are noted with midfoot collapse and bony remodeling of the hind foot. Healed fifth toe proximal phalangeal fracture. Vascular calcifications are noted. Diffuse soft tissue swelling surrounding the ankle and foot. Impression Large lateral forefoot ulcer with interval improvement in findings of osteomyelitis in the distal fifth metatarsal shaft. However, there seems to be resorptive/erosion of portions of the head of the fifth metatarsal bone, therefore, residual Osteomyelitis cannot be entirely excluded. Clinical correlation and continued monitoring recommended. Preliminary Report Dictated by Resident: Mathew Addison MD., have reviewed this study and agree with the above report. ASSESSMENT/PLAN Mildred Kelly is a 69 year old female with Dry gangrene of left second toe. Hx of recurrent diabetic foot ulcers. Left foot lateral diabetic ulcer DM gangerous 2nd left toe Arterial duplex shows some PAD but nothing significant for intervention IV zosyn day 2 IV vanc day 2. Monitor vanc levels F/u blood cultures General surgery Dr. Ivan consulted from ER. S/p amputation of 2nd left toe on 01/21/[address] Lieberman consulted CODI, resolved with IVF On IV fluids Trend BMP Iron deficiency anemia Monitor for bleed, non reported IV venofer Ferrous sulfate Recommend outpatient GI and PCP f/u Vit b12 deficiency. Replace Vit d deficiency. Replace IDDM, A1c 7.6 Takes soliqua 30u qd Resume insulin at half dose when eating Hx CAD s/p CABG 2004 Was on aspirin, plavix, metoprolol, statin Hold plavix - unclear indication, per patient maybe for PAD? Prophylaxis: DVT- SCD Full Code, advance care planning discussed on admisison documented in this encounter Plan of Treatment Name Type Priority Associated Diagnoses Date/Ti me BLOOD CULTURE SCREEN LAB Routine 9:16 PM CDT BLOOD CULTURE SCREEN LAB Routine 020 9:15 PM CDT SURGICAL PATHOLOGY EXAM LAB STAT 01/2020 3:00 PM CDT Name Type Priority Associated Diagnoses Order S chedule OCCULT (GUAIAC) LAB Routine ONCE for 1 BLOOD Occurrences sta rting 01/21/2020 unti l 01/21/2020 POCT Glucose LAB Routine ONCE for 1 Occurrences sta rting 01/21/2020 unti l 01/21/2020 EKG-12 LEAD ROUTINE HEART STATION STAT ONCE fo r 1 Occurrences sta rting 01/21/2020 unti l 01/21/2020 SURGICAL PATHOLOGY LAB Routine ONCE for 1 EXAM Occurrences sta rting 01/21/2020, 1 completed Health Maintenance Due Date Last Done Comments HEPATITIS C (HCV) SCREEN 1950 EYE EXAM 1962 DTaP,Tdap,and Td Vaccines (1 - 1963 09/18/2007 Tdap) FOOT EXAM 1970 COLONOSCOPY 2002 Zoster Recombinant Vaccine 2002 (SHINGRIX) (1 of 2) Breast Cancer Screening 03/11/2014 03/11/2013 (MAMMOGRAM) Medicare Wellness Visit 2017 Osteoporosis Screening 2017 PNEUMOCOCCAL VACCINES 65+ (1 of 2 2017 - PCV13) URINE MICROALBUMIN 01/03/2020 01/02/2019, 01/04/2005 INFLUENZA VACCINE (Season Ended) 2020 HgA1C 07/22/2020 01/20/2020, 05/14/2019, 12/07/2004 CREATININE (SERUM) 01/20/2021 01/21/2020, 01/20/2020, 02/03/2019, Additional history exists LDL-C 01/20/2021 01/21/2020, 01/02/2019, 01/04/2005, Additional history exists documented as of this encounter Procedures Procedure Name Priority Date/Time Associated Comments Diagnosis VANCOMYCIN TROUGH Routine 01/22/2020 8:09 Result s for AM CDT this procedure are in the results section. CBC WITH DIFFERENTIAL Routine 01/22/2020 4:06 Re sults for AM CDT this procedure are in the results section. CBC WITH DIFFERENTIAL Routine 01/22/2020 4:06 Re sults for AM CDT this procedure are in the results section. BASIC METABOLIC PANEL Routine 01/22/2020 4:06 Re sults for (NA, K, CL, CO2, AM CDT this proced ure GLUCOSE, BUN, are in the CREATININE, CA) results section. MAGNESIUM Routine 01/22/2020 4:06 Results for AM CDT this procedure are in the results section. PHOSPHORUS Routine 01/22/2020 4:06 Results for AM CDT this procedure are in the results section. POCT GLUCOSE Routine 01/21/2020 8:44 Results for (AUTOMATED) PM CDT this procedure are in the results section. POCT GLUCOSE Routine 01/21/2020 4:01 Results for (AUTOMATED) PM CDT this procedure are in the results section. EKG-12 LEAD Routine 01/21/2020 2:26 PM CDT TOE AMPUTATION Level 1 (within 01/21/2020 2:25 Necrotic toes 1 hour) PM CDT POCT GLUCOSE Routine 01/21/2020 12:10 Results for (AUTOMATED) PM CDT this procedure are in the results section. PROCALCITONIN TAYLER 01/21/2020 10:32 Results fo r AM CDT this procedure are in the results section. BILATERAL DUPLEX SCAN TAYLER 01/21/2020 8:08 OF ARTERY BY VASCULAR AM CDT LAB POCT GLUCOSE Routine 01/21/2020 7:40 Results for (AUTOMATED) AM CDT this procedure are in the results section. CBC WITH DIFFERENTIAL Routine 01/21/2020 3:12 Re sults for AM CDT this procedure are in the results section. VITAMIN D, 25-OH Routine 01/21/2020 3:12 Results for AM CDT this procedure are in the results section. CBC WITH DIFFERENTIAL Routine 01/21/2020 3:12 Re sults for AM CDT this procedure are in the results section. SEDIMENTATION RATE Add-on 01/21/2020 3:12 Resul ts for AM CDT this procedure are in the results section. IRON PANEL Routine 01/21/2020 3:12 Results for AM CDT this procedure are in the results section. LIPID PANEL Add-on 01/21/2020 3:12 Results for (88092)(TOTAL AM CDT this procedure CHOLESTEROL, are in the TRIGLYCERIDES, HDL) results section. BASIC METABOLIC PANEL Routine 01/21/2020 3:12 Re sults for (NA, K, CL, CO2, AM CDT this proced ure GLUCOSE, BUN, are in the CREATININE, CA) results section. C-REACTIVE PROTEIN Add-on 01/21/2020 3:12 Resul ts for AM CDT this procedure are in the results section. FOLATE Routine 01/21/2020 3:12 Results for AM CDT this procedure are in the results section. VITAMIN B12, LEVEL Routine 01/21/2020 3:12 Resul ts for AM CDT this procedure are in the results section. POCT GLUCOSE Routine 01/20/2020 9:56 Results for (AUTOMATED) PM CDT this procedure are in the results section. BLOOD CULTURE SCREEN Routine 01/20/2020 9:16 PM CDT BLOOD CULTURE SCREEN Routine 01/20/2020 9:15 PM CDT POCT GLUCOSE Routine 01/20/2020 8:36 Results for (AUTOMATED) PM CDT this procedure are in the results section. URINALYSIS STAT 01/20/2020 7:32 Ulcer of left Results fo r PM CDT foot, unspecified this proce dure ulcer stage are in the results section. CBC WITH DIFFERENTIAL STAT 01/20/2020 5:33 Ulcer of left R esults for PM CDT foot, unspecified this proce dure ulcer stage are in the results section. LACTIC ACID WHOLE STAT 01/20/2020 5:33 Ulcer of left Resul ts for BLOOD PM CDT foot, unspecified this proce dure ulcer stage are in the results section. GLYCOSYLATED Add-on 01/20/2020 5:33 Results for HEMOGLOBIN (A1C) PM CDT this proced ure are in the results section. CBC WITH DIFFERENTIAL Routine 01/20/2020 5:33 Ulcer of left R esults for PM CDT foot, unspecified this proce dure ulcer stage are in the results section. COMP. METABOLIC PANEL STAT 01/20/2020 5:33 Ulcer of left R esults for (20249) PM CDT foot, unspecified this proce dure ulcer stage are in the results section. THYROID STIMULATING Add-on 01/20/2020 5:33 Resu lts for HORMONE PM CDT this procedure are in the results section. FERRITIN SERUM Add-on 01/20/2020 5:33 Results f or PM CDT this procedure are in the results section. MAGNESIUM STAT 01/20/2020 5:33 Ulcer of left Results fo r PM CDT foot, unspecified this proce dure ulcer stage are in the results section. CORONAVIRUS COVID-19 STAT 01/20/2020 5:32 Ulcer of left Re sults for TESTING PM CDT foot, unspecified this proce dure ulcer stage are in the results section. XR FOOT 3+ VW LEFT STAT 01/20/2020 4:50 Ulcer of left Res ults for PM CDT foot, unspecified this proce dure ulcer stage are in the results section. NOTICE OF PRIVACY Routine 01/20/2020 2:03 PRACTICES PM CDT CONSENT/REFUSAL FOR Routine 01/20/2020 2:02 DIAGNOSIS AND PM CDT TREATMENT AGREEMENTS Routine 01/20/2020 12:01 AUTHORIZATIONS AND AM CDT IRREVOCABLE ASSIGNMENTS (FORM 2001) documented in this encounter Results Vancomycin Trough Level - Draw no more than 60 minutes before the 845 dose. (01/22/2020 8:09 AM CDT) Pathologist Sig nature VANCO TROUGH 12.4 10.0 - 20.0 ug/mL [facility] Specimen Blood - ARM, LEFT Narrative Performed At Toxic Range: >20 ug/mL [facility] 15-20 ug/mL is recommended for severe infection or when Vancomycin MAYRA is greater than or equal to 2. Performing Organization Address City/State/Zipcode Phone Number [facility] CLIA: [id number], [address], [place] [address] CBC WITH DIFFERENTIAL (01/22/2020 4:06 AM CDT) [facility] nature WBC 6.50 4.30 - 11.10 [facility] 10*3/L [facility] RBC 3.14 (L) 3.93 - 5.25 [facility] 10*6/L [facility] HGB 8.3 (L) 11.6 - 15.0 [facility] g/dL [facility] HCT 27.2 (L) 35.7 - 45.2 % [facility] MCV 86.6 80.6 - 95.5 fL [facility] MCH 26.4 25.9 - 32.8 pg [facility] MCHC 30.5 (L) 31.6 - 35.1 [facility] g/dL [facility] RDW-SD 42.2 39.0 - 49.9 fL [facility] RDW-CV 13.3 12.0 - 15.5 % [facility] PLT 319 166 - 358 [facility] 10*3/L [facility] MPV 9.8 9.5 - 12.9 fL [facility] NRBC/100 WBC 0.0 0.0 - 10.0 /100 [facility] WBCs [facility] NRBC x10^3 <0.01 10*3/L [facility] GRAN MAT (NEUT) % 70.0 % [facility] IMM GRAN % 0.30 % [facility] LYMPH % 14.0 % [facility] MONO % 10.3 % [facility] EOS % 4.9 % [facility] BASO % 0.5 % [facility] GRAN MAT x10^3(ANC) 4.55 1.88 - 7.09 [facility] 10*3/uL [facility] IMM GRAN x10^3 <0.03 0.00 - 0.06 [facility] 10*3/uL [facility] LYMPH x10^3 0.91 (L) 1.32 - 3.29 [facility] 10*3/uL [facility] MONO x10^3 0.67 0.33 - 0.92 [facility] 10*3/uL [facility] EOS x10^3 0.32 0.03 - 0.39 [facility] 10*3/uL [facility] BASO x10^3 0.03 0.01 - 0.07 [facility] 10*3/uL [facility] Specimen Blood - ARM, LEFT Performing Organization Address City/State/Zipcode Phone Number [facility] CLIA: [id number], [address] BASIC METABOLIC PANEL (NA, K, CL, CO2, GLUCOSE, BUN, CREATININE, CA) (01/22/2020 4:06 AM CDT) NA 139 135 - 145 [facility] mmol/L [facility] K 4.5 3.5 - 5.0 [facility] mmol/L [facility] CL 105 98 - 108 mmol/L [facility] CO2 TOTAL 26 23 - 31 mmol/L [facility] AGAP 8 2 - 16 [facility] BUN 29 (H) 7 - 23 mg/dL [facility] GLUCOSE 127 (H) 70 - 110 mg/dL [facility] CREATININE 1.26 (H) 0.50 - 1.04 [facility] mg/dL [facility] CALCIUM 9.0 8.6 - 10.6 [facility] mg/dL [facility] eGFR Calculation 42.4 mL/min/1.73m2 [facility] ([facility] LAB[facility]ATORY [place]) eGFR Calculation 51.3 mL/min/1.73m2 [facility] () [facility] Specimen Blood - ARM, LEFT Narrative Performed At Association of Glomerular Filtration Rate (GFR) [facility] and Staging of Kidney Disease* + + +- + | GFR (mL/min/1.73 m2) | With Kidney Damage | Without Kidney Damage + + +- + | >90 | Stage one | Normal + + +- + | 60-89 | Stage two | Decreased GFR + + +- + | 30-59 | Stage three | Stage three + + +- + | 15-29 | Stage four | Stage four + + +- + | <15 (or dialysis) | Stage five | Stage five + + +- + *Each stage assumes the associated GFR level has been in effect for at least three months. Stages 1 to 5, with or without kidney disease, indicate chronic kidney disease. Notes: Determination of stages one and two (with eGFR >59mL/min/1.73 m2) requires estimation of kidney damage for at least three months as defined by structural or functional abnormalities of the kidney, manifested by either: Pathological abnormalities or Markers of kidney damage (including abnormalities in the composition of the blood or urine or abnormalities in imaging tests). Performing Organization Address [facility] Phone Number [facility] CLIA: [id number], [address] [place] PHOSPHORUS (01/22/2020 4:06 AM CDT) Pathologist Sig nature PHOSPHORUS 3.3 2.5 - 5.0 mg/dL [facility] Specimen Blood - ARM, LEFT Performing Organization Address [facility] Phone Number [facility] CLIA: [id number], [address] MAGNESIUM (01/22/2020 4:06 AM CDT) Pathologist Sig nature MAGNESIUM 2.1 1.7 - 2.4 mg/dL [facility] Specimen Blood - ARM, LEFT Performing Organization Address [facility] Phone Number [facility] CLIA: [id number], [address] [place] [address] POCT GLUCOSE (AUTOMATED) (01/21/2020 8:44 PM CDT) Pathologist Sig nature POCT GLU 333 (H) 70 - 110 mg/dL [facility] Specimen Blood Performing Organization Address [facility] Phone Number [facility] CLIA: [id number], [address] [place] [address] POCT GLUCOSE (AUTOMATED) (01/21/2020 4:01 PM CDT) Pathologist Sig nature POCT GLU 208 (H) 70 - 110 mg/dL [facility] Specimen Blood Performing Organization Address [facility] Phone Number [facility] CLIA: [id number], [address] [place] [address] POCT GLUCOSE (AUTOMATED) (01/21/2020 12:10 PM CDT) Pathologist Sig nature POCT GLU 89 70 - 110 mg/dL [facility] Specimen Blood Performing Organization Address City/State/Zipcode Phone Number [facility] CLIA: [id number], [address], [place] [address] PROCALCITONIN (01/21/2020 10:32 AM CDT) Harini gupta Procalcitonin 0.03 <0.07 ng/mL [facility] Specimen Blood - ARM, LEFT Narrative Performed At INTERPRETATION OF PROCALCITONIN RESULTS IN ADULTS >= 1 8 [facility] YEARS OF AGE Initiation and discontinuation of antibiotics on patie nts with suspected or confirmed Lower Respiratory Tract Infection in Adults >= 18 years of age. + + + +----- ------ + |Procalcitonin |Interpretation |Antibiotic |Considerations |ng/mL | |recommend ation | + + + +----- ------ + | <0.1 | Bacterial | Strongly | | | infection very | discouraged | Overruling: | | unlikely | | Clinically unstable + + + + H igh risk for adverse | <0.25 | Bacterial | Discouraged | outcome | | infection | | SEE IMPORTANT NOTE | | unlikely | | + + + +----- ------ + | >=0.25 | Bacterial | Encouraged | | | infection | | | | likely | | Consider treatment failure + + + + if l evels does not decrease | >0.5 | Bacterial | Strongly | appropriately | | infection very | encouraged | | | likely | | + + + +----- ------ + Discontinuation of antibiotics in high-acuity patients with suspected or confirmed sepsis in Adults >= 18 years of age. + + + +----- ------ + |Procalcitonin |Interpretation |Antibiotic |Considerations |ng/mL | |recommend ation | + + + +----- ------ + | <0.25 | Bacterial | Strongly | | | infection very | discouraged | Overruling: | | unlikely | | Clinically unstable + + + + H igh risk for adverse | <0.5 or drop | Bacterial | Discouraged | outcome | >80% from | infection | | SEE IMPORTANT NOTE | highest PCT | unlikely | | | level | | | + + + +----- ------ + | >=0.5 | Bacterial | Encouraged | | | infection | | | | likely | | Consider treatment failure + + + + if l evels does not decrease | >1.0 | Bacterial | Strongly | appropriately | | infection very | encouraged | | | likely | | + + + +----- ------ + Percentage of drop of Procalcitonin calculation for Discontinuation of antibiotics in high-acuity patients with suspected or confirmed sepsis in Adults >= 18 years of age. Procalcitonin highest{}-Procalcitonin current{} Delta Procalcitonin = x100% Procalcitonin current {} IMPORTANT NOTE: Procalcitonin may be elevated without bacterial infection by physiologic stress related to t rauma, ojlly, chronic dialysis, metastatic cancer, surgery in the past seven days, malaria, some fungal infections, and some forms of vasculitis. The interpretation algorithm may not apply to patients with immunosuppression (equivalent o f >10 mg of prednisone daily), HIV with CD4 cell count < 350 cells/mm3, active malignancy on systemic chemotherapy, solid organ transplant or hematopoietic stem cell transplant ation, or hospital acquired pneumonia. Additionally, some cli nical trials of procalcitonin have excluded patients with sh ock requiring vasopressor use, acute respiratory failure requiring mechanical ventilation, or those with known lung abscess/empyema. For further information please refer to: [email or web address] Performing Organization Address City/[facility] Centercode Phone Number [facility] CLIA: [id number], [address] [place] [address] [address] [facility] POCT GLUCOSE (AUTOMATED) (01/21/2020 7:40 AM CDT) Pathologist Sig [facility] POCT GLU 102 70 - 110 mg/dL [facility] Specimen Blood Performing Organization Address [facility] Phone Number [facility] CLIA: [id number], [address], [place] [address] SEDIMENTATION RATE (01/21/2020 3:12 AM CDT) Pathologist Sig nature ESR 67 (H) 0 - 20 mm/HR [facility] Specimen Blood - ARM, RIGHT Performing Organization Address [facility] Phone Number [facility] CLIA: [id number], [address] C-REACTIVE PROTEIN (01/21/2020 3:12 AM CDT) Pathologist Sig nature CRP 3.3 (H) <0.8 mg/dL [facility] Specimen Blood - ARM, RIGHT Performing Organization Address [facility] Phone Number [facility] CLIA: [id number], [address] [place] [address] [address] [facility] LIPID PANEL (82675)(TOTAL CHOLESTEROL, TRIGLYCERIDES, HDL) (01/21/2020 3:12 AM CDT) Pathologist Sig nature CHOL 105 (L) 120 - 200 mg/dL [facility] HDL 24 (L) >50 mg/dL [facility] HDLC RATIO 4.4 <=4.5 [facility] TRIG 112 30 - 170 mg/dL [facility] LDL CHOL 59 <=160 mg/dL [facility] VLDL 22 5 - 60 mg/dL [facility] Specimen Blood - ARM, RIGHT Performing Organization Address City/State/Zipcode Phone Number [facility] CLIA: [id number], [address] [address] CBC WITH DIFFERENTIAL (01/21/2020 3:12 AM CDT) [facility] nature WBC 9.10 4.30 - 11.10 [facility] 10*3/L [facility] RBC 2.96 (L) 3.93 - 5.25 [facility] 10*6/L [facility] HGB 7.7 (L) 11.6 - 15.0 [facility] g/dL [facility] HCT 24.6 (L) 35.7 - 45.2 % [facility] MCV 83.1 80.6 - 95.5 fL [facility] MCH 26.0 25.9 - 32.8 pg [facility] MCHC 31.3 (L) 31.6 - 35.1 [facility] g/dL [facility] RDW-SD 40.8 39.0 - 49.9 fL [facility] RDW-CV 13.4 12.0 - 15.5 % [facility] PLT 327 166 - 358 [facility] 10*3/L [facility] MPV 9.7 9.5 - 12.9 fL [facility] NRBC/100 WBC 0.0 0.0 - 10.0 /100 [facility] WBCs [facility] NRBC x10^3 <0.01 10*3/L [facility] GRAN MAT (NEUT) % 68.0 % [facility] IMM GRAN % 0.40 % [facility] LYMPH % 18.6 % [facility] MONO % 9.6 % [facility] EOS % 3.0 % [facility] BASO % 0.4 % [facility] GRAN MAT x10^3(ANC) 6.19 1.88 - 7.09 [facility] 10*3/uL [facility] IMM GRAN x10^3 0.04 0.00 - 0.06 [facility] 10*3/uL [facility] LYMPH x10^3 1.69 1.32 - 3.29 [facility] 10*3/uL HOSPITAL LAB[facility] MONO x10^3 0.87 0.33 - 0.92 [facility] 10*3/uL HOSPITAL LAB[facility]ORY EOS x10^3 0.27 0.03 - 0.39 [facility] 10*3/uL HOSPITAL [facility] BASO x10^3 0.04 0.01 - 0.07 [facility] 10*3/uL HOSPITAL LAB[facility]ORY Specimen Blood - ARM, RIGHT Performing Organization Address City/[facility] Centercode Phone Number [facility] CLIA: [id number], [address], [place] [address] VITAMIN D, 25-OH (01/21/2020 3:12 AM CDT) Pathologist Sig nature VIT D 25OH 25 25 - 80 ng/mL [facility] Specimen Blood - ARM, RIGHT Narrative Performed At Deficiency: <20 ng/mL [facility] Insufficiency: 20-24 ng/mL Optimal: 25-80 ng/mL Performing Organization Address [facility] Phone Number [facility] CLIA: [id number], [address] [place] [address] [address] [facility] FOLATE (01/21/2020 3:12 AM CDT) FOLATE SER 17.4Comment: Biotin 3.0 - 20.0 [facility] has been reported ng/mL SERVICES to cause a positive bias, interpret results relative to patient's use of biotin. Specimen Blood - ARM, RIGHT Performing Organization Address City/[facility] Phone Number [facility] CLIA: [id number], [address] [place] [address] [address] [facility] VITAMIN B12, LEVEL (01/21/2020 3:12 AM CDT) Pathologist Sig nature VIT B12 226 (L) 240 - 930 pg/mL [facility] Specimen Blood - ARM, RIGHT Narrative Performed At Biotin has been reported to cause a positive bias, int erpret [facility] results relative to patient's use of biotin. Performing Organization Address City/[facility] Centercode Phone Number [facility] CLIA: [id number], [address] [place] [address] [address] [facility] IRON PANEL (01/21/2020 3:12 AM CDT) Pathologist Sig nature IRON 22 (L) 50 - 160 ug/dL [facility] TIBC 292 250 - 410 ug/dL [facility] % FE SAT 8 (L) 20 - 50 % [facility] Specimen Blood - ARM, RIGHT Performing Organization Address City/State/Zipcode Phone Number [facility] CLIA: [id number], [address], [place] [address] Basic Metabolic Panel (NA, K, CL, CO2, GLUCOSE, BUN, CREATININE, CA) (01/21/2020 3:12 AM CDT) Pathologist [facility] NA 138 135 - 145 [facility] mmol/L [facility] K 4.3 3.5 - 5.0 [facility] mmol/L [facility] CL 106 98 - 108 mmol/L [facility] CO2 TOTAL 25 23 - 31 mmol/L [facility] AGAP 7 2 - 16 [facility] BUN 35 (H) 7 - 23 mg/dL [facility] GLUCOSE 144 (H) 70 - 110 mg/dL [facility] CREATININE 0.95 0.50 - 1.04 [facility] mg/dL [facility] CALCIUM 8.6 8.6 - 10.6 [facility] mg/dL [facility] eGFR Calculation 58.7 mL/min/1.73m2 [facility] ([facility]AT[facility] [place]) eGFR Calculation 71.1 mL/min/1.73m2 [facility] () [facility] Specimen Blood - ARM, RIGHT Narrative Performed At Association of Glomerular Filtration Rate (GFR) [facility] and Staging of Kidney Disease* + + +- + | GFR (mL/min/1.73 m2) | With Kidney Damage | Without Kidney Damage + + +- + | >90 | Stage one | Normal + + +- + | 60-89 | Stage two | Decreased GFR + + +- + | 30-59 | Stage three | Stage three + + +- + | 15-29 | Stage four | Stage four + + +- + | <15 (or dialysis) | Stage five | Stage five + + +- + *Each stage assumes the associated GFR level has been in effect for at least three months. Stages 1 to 5, with or without kidney disease, indicate chronic kidney disease. Notes: Determination of stages one and two (with eGFR >59mL/min/1.73 m2) requires estimation of kidney damage for at least three months as defined by structural or functional abnormalities of the kidney, manifested by either: Pathological abnormalities or Markers of kidney damage (including abnormalities in the composition of the blood or urine or abnormalities in imaging tests). Performing Organization Address [facility] Centercode Phone Number [facility] CLIA: [id number], [address] [place] [address] POCT GLUCOSE (AUTOMATED) (01/20/2020 9:56 PM CDT) Pathologist Sig nature POCT GLU 94 70 - 110 mg/dL [facility] Specimen Blood Performing Organization Address [facility] Phone Number [facility] CLIA: [id number], [address] [place] [address] POCT GLUCOSE (AUTOMATED) (01/20/2020 8:36 PM CDT) Pathologist Sig nature POCT GLU 63 (L) 70 - 110 mg/dL [facility] Specimen Blood Performing Organization Address [facility] Phone Number [facility] CLIA: [id number], [address] [place] [address] URINALYSIS (01/20/2020 7:32 PM CDT) Pathologist Sig nature APPEARANCE Clear Clear [facility] COLOR Straw (A) Yellow [facility] PH 6.0 4.8 - 8.0 [facility] SP GRAVITY 1.008 1.003 - 1.030 [facility] GLU U QUAL Normal Normal [facility] BLOOD Negative Negative [facility] KETONES Negative Negative [facility] PROTEIN Negative Negative [facility] UROBILIN Normal Normal [facility] BILIRUBIN Negative Negative [facility] NITRITE Negative Negative [facility] LEUK SANJUANITA Negative Negative [facility] RBC/HPF 3 0 - 3 HPF [facility] WBC/HPF 1 0 - 5 HPF [facility] BACTERIA Few (A) Negative [facility] MUCOUS Slight (A) Negative LPF [facility] SQ EPITH <1 HPF [facility] Specimen Urine - URINE, CLEAN CATCH Performing Organization Address [facility] Phone Number [facility] CLIA: [id number], [address] [place] [address] Glycosylated Hemoglobin (A1C) (01/20/2020 5:33 PM CDT) Pathologist Sig nature HGB A1C 7.6 (H) 4.0 - 6.0 % NGSP [facility] Specimen Blood - ARM, LEFT Narrative Performed At %A1C (NGSP) Interpretation (ADA) [facility] 4.8-5.6 Normal or (Non-Diabetic Ra nge) 5.7-6.4 Increased Risk (Pre-Diabet ic) >6.5 Diabetes Indicated Performing Organization Address [facility] Phone Number [facility] CLIA: [id number], [address] [place] [address] THYROID STIMULATING HORMONE (01/20/2020 5:33 PM CDT) Pathologist Sig nature TSH 1.86Comment: Biotin 0.45 - 4.70 [facility] has been reported [facility] to cause a negative bias, interpret results relative to patient's use of biotin. Specimen Blood - ARM, LEFT Performing Organization Address [facility] Phone Number [facility] CLIA: [id number], [address] [place] [address] FERRITIN SERUM (01/20/2020 5:33 PM CDT) Pathologist Sig nature FERRITIN 31.1 11.0 - 264.0 ng/mL [facility] Specimen Blood - ARM, LEFT Narrative Performed At Biotin has been reported to cause a negative [facility] bias, interpret results relative to patient's use of biotin. Performing Organization Address [facility] Phone Number [facility] CLIA: [id number], [address] [place] [address] CBC WITH DIFFERENTIAL (01/20/2020 5:33 PM CDT) [facility] nature WBC 11.31 (H) 4.30 - 11.10 [facility] 10*3/L [facility] RBC 3.73 (L) 3.93 - 5.25 [facility] 10*6/L [facility] HGB 9.6 (L) 11.6 - 15.0 [facility] g/dL [facility] HCT 31.0 (L) 35.7 - 45.2 % [facility] MCV 83.1 80.6 - 95.5 fL [facility] MCH 25.7 (L) 25.9 - 32.8 pg [facility] MCHC 31.0 (L) 31.6 - 35.1 [facility] g/dL [facility] RDW-SD 40.9 39.0 - 49.9 fL [facility] RDW-CV 13.3 12.0 - 15.5 % [facility] PLT 410 (H) 166 - 358 [facility] 10*3/L [facility] MPV 9.3 (L) 9.5 - 12.9 fL [facility] NRBC/100 WBC 0.0 0.0 - 10.0 /100 [facility] WBCs [facility] NRBC x10^3 <0.01 10*3/L [facility] GRAN MAT (NEUT) % 71.6 % [facility] IMM GRAN % 0.30 % [facility] LYMPH % 17.1 % [facility] MONO % 8.0 % [facility] EOS % 2.5 % [facility] BASO % 0.5 % [facility] GRAN MAT x10^3(ANC) 8.10 (H) 1.88 - 7.09 [facility] 10*3/uL [facility] IMM GRAN x10^3 0.03 0.00 - 0.06 [facility] 10*3/uL [facility] LYMPH x10^3 1.93 1.32 - 3.29 [facility] 10*3/uL [facility] MONO x10^3 0.91 0.33 - 0.92 [facility] 10*3/uL [facility] EOS x10^3 0.28 0.03 - 0.39 [facility] 10*3/uL [facility] BASO x10^3 0.06 0.01 - 0.07 [facility] 10*3/uL [facility] Specimen Blood - ARM, LEFT Performing Organization Address [facility] Phone Number [facility] CLIA: [id number], [address], [place] [address] MAGNESIUM (01/20/2020 5:33 PM CDT) Pathologist Sig nature MAGNESIUM 2.0 1.7 - 2.4 mg/dL [facility] Specimen Blood - ARM, LEFT Performing Organization Address [facility] Phone Number [facility] CLIA: [id number], [address], [place] [address] Lactic Acid Whole Blood (01/20/2020 5:33 PM CDT) Pathologist Sig nature LACTIC ACID 1.67 0.30 - 2.60 mmol/L [facility] Specimen Blood - ARM, LEFT Performing Organization Address [facility] Phone Number [facility] CLIA: [id number], [address] [place] [address] COMP. METABOLIC PANEL ([id number]) (01/20/2020 5:33 PM CDT) NA 143 135 - 145 [facility] mmol/L [facility] K 4.4 3.5 - 5.0 [facility] mmol/L [facility] CL 100 98 - 108 mmol/L [facility] CO2 TOTAL 30 23 - 31 mmol/L [facility] AGAP 13 2 - 16 [facility] BUN 40 (H) 7 - 23 mg/dL [facility] GLUCOSE 79 70 - 110 mg/dL [facility] CREATININE 1.22 (H) 0.50 - 1.04 [facility] mg/dL [facility] TOTAL BILI 0.4 0.1 - 1.1 mg/dL [facility] CALCIUM 9.9 8.6 - 10.6 [facility] mg/dL [facility] T PROTEIN 8.5 (H) 6.3 - 8.2 g/dL [facility] ALBUMIN 4.4 3.5 - 5.0 g/dL [facility] ALK PHOS 129 (H) 34 - 122 U/L [facility] ALTv 12 5 - 35 U/L [facility] AST(SGOT) 24 13 - 40 U/L [facility] eGFR Calculation 44.0 mL/min/1.73m2 [facility] [place]) eGFR Calculation 53.3 mL/min/1.73m2 [facility] () [facility] Specimen Blood - ARM, LEFT Narrative Performed At [facility] of Glomerular Filtration Rate (GFR) [facility] and Staging of Kidney Disease* + + +- + | GFR (mL/min/1.73 m2) | With Kidney Damage | Without Kidney Damage + + +- + | >90 | Stage one | Normal + + +- + | 60-89 | Stage two | Decreased GFR + + +- + | 30-59 | Stage three | Stage three + + +- + | 15-29 | Stage four | Stage four + + +- + | <15 (or dialysis) | Stage five | Stage five + + +- + *Each stage assumes the associated GFR level has been in effect for at least three months. Stages 1 to 5, with or without kidney disease, indicate chronic kidney disease. Notes: Determination of stages one and two (with eGFR >59mL/min/1.73 m2) requires estimation of kidney damage for at least three months as defined by structural or functional abnormalities of the kidney, manifested by either: Pathological abnormalities or Markers of kidney damage (including abnormalities in the composition of the blood or urine or abnormalities in imaging tests). Performing Organization Address City/State/Zipcode Phone Number [facility] CLIA: [id number], [address], [place] [address] CORONAVIRUS COVID-19 TESTING (01/20/2020 5:32 PM CDT) Pathologist Sig nature SARS-CoV-2 Not Detected Not Detected [facility] Specimen Swab - NASOPHARYNGEAL SWAB Narrative Performed At [facility] COVID-19 Assay is an isothermal nucleic [facility] acid amplification test intended for the qualitative detection of nucleic acid from SARS-CoV-2 viral RNA in nasopharyngeal (BLOCKING MACHINE OPERATOR) specimens. It is used under Emergency Use Authorization (EUA) by FDA. The limit of detection (LOD) of the assay is 125 Genome Equivalents/mL. A positive result is indicative of the presence of SARS-CoV-2 RNA. Clinical correlation with patient history and other diagnostic information is necessary to determine patient infection status. A negative (Not Detected) result does not preclude SARS-CoV-2 infection. Clinical correlation with patient history and other diagnostic information should be used in patient management decisions. Invalid: Please collect a new specimen for repeat patient testing if clinically indicated. Performing Organization Address City/State/Zipcode Phone Number [facility] CLIA: [id number], [address], [place] [address] XR FOOT 3+ VW LEFT (01/20/2020 4:50 PM CDT) Specimen Impressions Performed At PACS/VR/DOSE Large lateral forefoot ulcer with interv al improvement in findings of osteomyelitis in the distal fifth metatarsal shaft. Ho wever, there seems to be resorptive/erosion of portions of the head of the f ifth metatarsal bone, therefore, residual Osteomyelitis cannot be entirely excluded. Clinical correlation and continued monitoring rec ommended. Preliminary Report Dictated by Resident: Mathew Addison MD., have reviewed this stud y and agree with the above report. Narrative Performed At EXAM: XR FOOT 3+ VW LEFT PACS/VR/DOSE HISTORY: 69 year-old woman with diabetic wound COMPARISON: Left foot x-ray 02/03/2019 FINDINGS: Radiographs of the left foot demonstrate a large lateral forefoot ulceration with interval bony resorption /erosion of the fifth metatarsal head. Changes of Charcot arthropathy are noted with midfoot collapse and bony remodeling of the hind foot. Healed fifth toe proximal phalangeal fracture. Vascular calcifications are noted. Diffuse s oft tissue swelling surrounding the ankle and foot. Procedure Note [facility], Radiant Results Inft User - 2019 7:58 AM CDT EXAM: XR FOOT 3+ VW LEFT HISTORY: 69 year-old woman with diabetic wound COMPARISON: Left foot x-ray 02/03/2019 FINDINGS: Radiographs of the left foot demonstrate a large lateral forefoot ulceration with interval bony resorption /erosion of the fifth metatarsal head. Changes of Charcot arthropathy are noted with midfoot collapse and bony remodeling of the hind foot. Healed fifth toe proximal phalangeal fracture. Vascular calcifications are no romulo. Diffuse soft tissue swelling surrounding the ankle and foot. IMPRESSION Large lateral forefoot ulcer with interv al improvement in findings of osteomyelitis in the distal fifth metata rsal shaft. However, there seems to be resorptive/erosion of portions of the head of the fifth metatarsal bone, therefore, residual Osteomyelitis cannot be entirely excluded. Clinical correlation and continued monitoring rec ommended. Preliminary Report Dictated by Resident: Mathew Addison MD., have revie wed this study and agree with the above report. Performing Organization Address City/State/Zipcode Phone Number PACS/VR/DOSE documented in this encounter Visit Diagnoses Diagnosis Necrotic toes - Primary Gangrene Ulcer of left foot, unspecified ulcer st age documented in this encounter Administered Medications Medication Order MAR Action Action Date Dose Rate Site acetaminophen (TYLENOL) tablet Given 01/21/2020 1:18 PM CDT 650 mg 650 mg 650 mg, Oral, Q6HPRN, Starting Mon01/20/20 at 2027, Until Discontinued, Routine, Pain (scale 1-3) aspirin chewable tablet 81 mg Given 01/22/2020 9:04 AM CDT 81 mg 81 mg, Oral, DAILY, First dose on Mon01/21/20 at 0900, Until Discontinued, Routine Given 01/21/2020 9:59 AM CDT 81 mg benzonatate (TESSALON PERLES) capsule 10 0 mg Given 01/21/2020 11:29 PM CDT 100 mg 100 mg, Oral, Q6HPRN, Starting Mon01/21/20 at 1724, Until Discontinued, Routine, Cough Given 01/21/2020 5:49 PM CDT 100 mg codeine-guaifenesin (ROBITUSSIN AC) 10-1 00 mg/5 mL solution 10 mL 10 mL, Oral, TIDPRN, Starting Mon01/21/20 at 1726, Unti l Discontinued, Routine, Cough cyanocobalamin (VITAMIN B12) injection 1 ,000 mcg 1,000 mcg, Subcutaneous, Q24H, First dose on Mon 0 at 1830, Until Discontinued, Routine dextrose 50 % in water (D50W) injection 25 mL 25 mL, Slow IV Push, PRN, Starting Mon at 2124, Until Discontinued, TAYLER, Blood Glucose < or = 70 mg/dL and patien t is unable to swallow or has mental status changes. ergocalciferol (vitamin d2) Given 01/22/2020 9:04 AM CDT 50,000 Units (CALCIFEROL) capsule 50,000 Units 50,000 Units, Oral, QWEEKLY, First dose on Mon01/22/20 at 0900, Until Discontinued, Routine ferrous sulfate tablet 325 mg 325 mg, Oral, BID, First dose on 01/23 at 0800, Until Discontinued, Routine furosemide (LASIX) tablet 40 mg Given 01/22/2020 9:04 AM CDT 40 mg 40 mg, Oral, DAILY, First dose on Mon01/21/20 at 0900, Until Discontinued, Routine Given 01/21/2020 9:59 AM CDT 40 mg glucagon (GLUCAGEN DIAGNOSTIC KIT) injec tion 1 mg 1 mg, Intramuscular, PRN, Starting Mon at 2123, Until Discontinued, TAYLER, Blood Glucose < or = 70 mg/dL and patient is unable to swallow or has mental changes. HYDROcodone-acetaminophen (NORCO 5) 5-325 Given 2019 10:23 AM CDT 1 tablet mg tablet 1 tablet 1 tablet, Oral, Q6HPRN, Starting Mon01/20/20 at 2027, Until Mon01/22/20 at 2026, Routine, Pain (scale 4-6) Given 01/22/2020 3:55 AM CDT 1 tablet insulin glargine (LANTUS U-100) injectio n 15 Units 15 Units, Subcutaneous, DAILY, First dose on Mon 0 at 0900, Until Discontinued, Routine iron sucrose (VENOFER) 200 mg in NaCl 0.9% New Bag 01/20 12:32 PM CDT 200 mg (NS) 100 mL infusion 200 mg, IV Infusion, DAILY, First dose on Mon01/21/20 at 0900, For 5 doses lactated ringers IV infusion New Bag 01/22/2020 9:01 AM CDT 1,000 mL 50 mL/hr 1,000 mL at 50 mL/hr, 1,000 mL, IV Infusion, CONTINUOUS, Starting Mon01/21/20 at 1730, Until Discontinued, Routine New Bag 01/21/2020 5:53 PM CDT 1,000 mL 50 mL/hr lactobacillus acidophilus (ACIDOPHILLUS) Given 01/22/2020 9 :04 AM CDT 1 tablet 25 million cell -100 mg captab 1 tablet 1 tablet, Oral, BID, First dose on Mon01/21/20 at 0745, Until Discontinued, Routine Given 01/21/2020 9:01 PM CDT 1 tablet Given 01/21/2020 9:59 AM CDT 1 tablet metoprolol succinate XL (TOPROL XL) tablet 50 Given 9:04 AM CDT 50 mg mg 50 mg, Oral, BID, First dose on Mon01/21/20 at 0800, Until Discontinued Given 01/21/2020 9:01 PM CDT 50 mg Given 01/21/2020 9:59 AM CDT 50 mg piperacillin-tazobactam (ZOSYN) 3.375 Given 01/22/2020 11:58 AM CDT 3.375 g gram/50 mL Piggyback RTU 3.375 g 3.375 g, IV Piggyback, Q6H ABX, First dose on Mon01/21/20 at 0545, Until Discontinued, 50 mL, Reason for Anti-Infective: Empiric Therapy for Suspected Infection, Empiric Therapy Site: Skin / Soft tissue, Duration of therapy: 72 hours Given 01/22/2020 4:59 AM CDT 3.375 g Given 01/21/2020 11:27 PM CDT 3.375 g pravastatin (PRAVACHOL) tablet 40 mg Given 01/21/2020 9:00 PM CDT 40 mg 40 mg, Oral, QHS, First dose on Mon01/21/20 at 2100, Until Discontinued, Routine pregabalin (LYRICA) capsule 75 mg Given 01/22/2020 9:04 AM CDT 75 mg 75 mg, Oral, BID, First dose on Mon01/21/20 at 0800, Until Discontinued, Routine, membership manager approving Restricted medication: ADAM RAMIREZ Given 01/21/2020 9:01 PM CDT 75 mg Given 01/21/2020 8:00 AM CDT 75 mg Sliding Scale Insulin - Lispro Given 01/21/2020 9:02 PM CDT 4 U nits Abdomen-SC (HumaLOG) + Fsbg Testing Subcutaneous, TID MEALS+HS, First dose on Mon01/21/20 at 0800, Until Discontinued, Routine Given 01/21/2020 5:01 PM CDT 1 Units Righ t Upper Arm-SC Vancomycin 750 mg in NaCl 0.9% (NS) 250 mL Given 01/22/2020 9:02 AM CDT 750 mg VIAL-MATE 750 mg, IV Piggyback, Q12H ABX, First dose on Mon01/21/20 at 0845, Until Discontinued, 250 mL, Reason for Anti-Infective: Documented Infection, Documented Infection Site: Skin / Soft Tissue, Duration of Therapy: 7 days Given 01/21/2020 9:01 PM CDT 750 mg Given 01/21/2020 10:00 AM CDT 750 mg Medication Order MAR Action Action Date Dose Rate Site lactated ringers IV New Bag 01/20/2020 9:15 PM CDT 1,000 mL 100 mL/hr infusion 1,000 mL at 100 mL/hr, 1,000 mL, IV Infusion, CONTINUOUS, Starting Mon01/20/20 at 2030, Until Mon01/21/20 at 1718, Routine traMADol (ULTRAM) tablet 50 mg Given 01/21/2020 4:37 PM CDT 50 mg 50 mg, Oral, ONCE, 1 dose, Mon01/21/20 at 1700, Routine vancomycin 1000 mg in NS 200 mL RTU IV Given 01/20/2020 5:49 PM CDT 1,000 mg Piggyback 1,000 mg 1,000 mg, IV Piggyback, ONCE, 1 dose, Mon01/20/20 at 1815, Reason for Anti-Infective: Documented Infection, Documented Infection Site: Skin / Soft Tissue, Duration of Therapy: 7 days documented in this encounter Additional Health Concerns Infection Noted Time Resolved Time Contact- MDRO 12/22/2012 1:28 AM CDT 01/21/2020 6:43 AM CDT documented as of this encounter Insurance Payer Benefit Plan / Subscriber ID Effective Phone Address T e Group Dates [facility] [id number] 2017-Pres Medica re HEALTHCARE - HEALTHCARE ent Adv HM O MANAGED DUAL COMPLETE MEDICARE HMO TMHP MEDICAID OF xxxxxxxxx 2018-Pres [phone] [place] [id number] [place] [address] documented as of this encounter
--- OUTSIDE RECORDS SUMMARY | 2020-03-05 14:23 | XMS REPORT | Summary of Care ---
:1950 Author Organization [facility] Address [address] [place] [address] Care Team Providers Name Role Phone Kingsley Millard Primary Care Provider Reason for Visit Reason Comments Appointment Encounter Details Date Type Department Care Team Description 02/04/2020 Telephone [facility] Surgical Luis A Ivan MD Appointment Specialties - [facility] on [address] [place] [address] [facility], [address] [address] [place] [address] [phone] Allergies Active Allergy Reactions Severity Noted Date Comments Levofloxacin Nausea and/or Vomiting 02/03/2019 documented as of this encounter (statuses as of 02/04/2020) Medications Medication Sig Dispensed Refills Start Date End Date Status furosemide (LASIX) 40 Take 40 mg by 0 Active mg tablet mouth daily. pregabalin (LYRICA) 75 Take 75 mg by 0 Active mg capsule mouth 2 (two) times daily. metFORMIN 1,000 mg Take 1,000 mg 0 Active tablet by mouth 2 (two) times daily with meals. metoprolol succinate Take 50 mg by 0 Active 50 mg CSpX mouth 2 (two) times daily. pravastatin 40 mg Take 40 mg by 0 Active tablet mouth at bedtime. Furosemide 40 mg/4 mL Take 40 mg by 0 Active Soln mouth once now. insulin inject 30 Units 30 Syringe 1 01/02/2019 Ac tive glargine-lixisenatide under the skin (SOLIQUA 100/33) 100 daily. unit-33 mcg/mL InPnIndications: Type 2 diabetes mellitus with cardiac complication blood sugar diagnostic Use as 200 Strip 1 01/02/2019 Active (ONETOUCH ULTRA BLUE directed. TEST STRIP) E11.59- Twice stripIndications: Type daily 2 diabetes mellitus with cardiac complication lancets (ONE TOUCH Use as 200 Each 1 01/02/2019 Active DELICA) 33 gauge directed. MiscIndications: Type E11.59- Twice 2 diabetes mellitus daily with cardiac complication ramipril 1.25 mg Take 1.25 mg by 0 Active capsule mouth at bedtime. clopidogreL 75 mg Take 75 mg by 0 Active tablet mouth daily. aspirin 81 mg chewable Take 81 mg by 0 Active tablet mouth daily. ergocalciferol, Take 50,000 12 capsule 0 01/29/2020 Active vitamin d2, 2,500 unit Units by mouth CapIndications: weekly. Necrotic toes ferrous sulfate 325 mg Take 1 tablet 60 tablet 2 01/24/2020 Active (65 mg iron) by mouth 2 tabletIndications: (two) times Necrotic toes daily for 90 days. lactobacillus Take 1 tablet 28 tablet 0 01/22/2020 02/05/2020 Active acidophilus 25 million by mouth 2 cell -100 mg (two) times captabIndications: daily for 14 Necrotic toes days. traMADol 50 mg Take 1 tablet 20 tablet 0 01/22/2020 Active tabletIndications: by mouth every Necrotic toes 8 (eight) hours as needed for Pain (scale 4-6) or Pain (scale 7-10). vitamin B-12 1,000 mcg Take 1 tablet 90 tablet 0 01/22/2020 Active tabletIndications: by mouth daily Necrotic toes for 90 days. documented as of this encounter (statuses as of 02/04/2020) Active Problems Problem Noted Date Necrotic toes 01/20/2020 Encounter for routine gynecological examination 2012 Overview: 02/04/2013- negative colorectal cards x 3. 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 Overweight 01/25/2013 Overview: 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 documented as of this encounter (statuses as of 02/04/2020) Immunizations Name Administration Dates Next Due Td 09/18/2007 documented as of this encounter Social History Tobacco Use Types Packs/Day Years Used Date Never Smoker Smokeless Tobacco: Never Used Alcohol Use Drinks/Week oz/Week Comments No Sex [...] filedocumented in this encounter Plan of Treatment Health Maintenance Due Date Last Done Comments [...] Ended) 2020 HgA1C 07/22/2020 01/20/2020, 05/14/2019, 12/07/2004 LDL-C 01/20/2021 01/21/2020, 01/02/2019, 01/04/2005, Additional history exists CREATININE (SERUM) 01/21/2021 01/22/2020, 01/21/2020, 01/20/2020, Additional history exists documented as of this encounter Results Not on filedocumented in this encounter Insurance Payer Benefit Plan / Subscriber ID Effective Phone Address T ype Group Dates [facility] [id number] 2017-Pres Medica re HEALTHCARE - HEALTHCARE ent Adv HM O MANAGED DUAL COMPLETE MEDICARE HMO TMHP MEDICAID OF xxxxxxxxx 2018-Pres [phone] ca[address] [place] ent [id number] [place] [address] documented as of this encounter
--- OUTSIDE RECORDS SUMMARY | 2020-03-05 14:23 | XMS REPORT | Summary of Care ---
:1950 Author Organization [facility] Address [address] [place] [address] Care Team Providers Name Role Phone Kingsley Millard DO Primary Care Provider Reason for Visit Reason Comments Appointment Appointment Pt 2nd call Encounter Details Date Type Department Care Team Description 01/24/2020 Telephone [facility] Surgical Randi Ivan Appo intment; Specialties - Christopher Stokes MD Appointment (Pt 2nd [address], [address] [place] [address] call) [address] [place] [phone] Allergies Active Allergy Reactions Severity Noted Date Comments Levofloxacin Nausea and/or Vomiting 02/03/2019 documented as of this encounter (statuses as of 01/27/2020) Medications Medication Sig Dispensed Refills Start Date [...] mouth daily Necrotic toes for 90 days. doxycycline hyclate Take 1 capsule 14 capsule 0 01/22/2020 Active 100 mg by mouth every capsuleIndications: 12 (twelve) Necrotic toes hours for 7 days. cefdinir 300 mg Take 1 capsule 14 capsule 0 01/22/2020 020 Active capsuleIndications: by mouth 2 Necrotic toes (two) times daily for 7 days. documented as of this encounter (statuses as of 01/27/2020) Active Problems Problem Noted Date Necrotic toes 01/20/2020 Encounter for routine gynecological examination 2012 Overview: 02/04/2013- negative colorectal cards x 3. ICD10 Diagnosis Term Resolution Agent Utility Overweight 01/25/2013 Overview: ICD10 Diagnosis Term Resolution Agent Utility documented as of this encounter (statuses as of 01/27/2020) Immunizations Name Administration Dates Next Due Td [...] Treatment Date Type Specialty Care Team Description 02/04/2020 Office Visit Surgery Randi Ivan MD [address] [place] [address] [phone] Health Maintenance Due Date Last Done Comments [...] Effective Phone Address T ype Group Dates [facility] [id number] 2017-Pres [facility] HEALTHCARE ent Adv HM O MANAGED DUAL COMPLETE MEDICARE O [facility] MEDICAID OF xxxxxxxxx 2018-Pres [phone] Medi caid [place] ent [phone] [place] [address] documented as of this encounter
--- OUTSIDE RECORDS SUMMARY | 2020-03-05 14:23 | XMS REPORT | Summary of Care ---
:1950 Author Organization [facility] - Health Address [address] [place] [address] Care Team Providers Name Role Phone Luis Millardbogdan Gamez Primary Care Provider Reason for Visit Reason Comments Transition Of Care Encounter Details Date Type Department Care Team Description 01/23/2020 Transition of Care [facility] [address] [address] Allergies Active Allergy Reactions Severity Noted Date Comments Levofloxacin Nausea and/or Vomiting 02/03/2019 documented as of this encounter (statuses as of 01/23/2020) Medications Medication Sig Dispensed Refills Start Date [...] Use as 200 Strip 1 01/02/2019 Active (SoundropUCH ULTRA BLUE directed. TEST STRIP) E11.59- Twice [...] as of this encounter (statuses as of 01/23/2020) Active Problems Problem Noted Date Necrotic toes 01/20/2020 Encounter for routine gynecological examination 2012 Overview: 02/04/2013- negative colorectal cards x 3. 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
--- NOTE | 2020-03-05 16:54 | ER ---
Nurse's Notes [facility] Name: Mildred Kelly Age: 69 yrs Sex: Female : 1950 Arrival Date: 03/05/2020 Time: 14:20 Bed 17 Private MD: Hiram Lieberman U Diagnosis: PICC Line - Non-patent Presentation: 03/05 14:27 Chief complaint: Patient states: Home Health nurse was unable to flush PICC line for IV ss therapy. Coronavirus screen: Proceed with normal triage. Patient denies a cough. Patient denies shortness of breath or difficulty breathing. Patient denies measured and/or subjective temperature greater than 100.4F prior to today's visit. Patient denies travel on a cruise ship or to a country the [facility] currently lists as an affected area. Patient denies contact with known and/or suspected case of COVID-19. Ebola Screen: Patient denies exposure to infectious person. Patient denies travel to an Ebola-affected area in the 21 days before illness onset. Initial Sepsis Screen: Does the patient meet any 2 criteria? No. Patient's initial sepsis screen is negative. Does the patient have a suspected source of infection? Yes: Other: foot infection, currently on antibiotic therapy. Risk Assessment: Do you want to hurt yourself or someone else? Patient reports no desire to harm self or others. Onset of symptoms was March 05, 2020. 14:27 Method Of Arrival: Ambulatory ss 14:27 Acuity: JANE 4 ss Historical: - Allergies: 14:31 No Known Allergies; ss - PMHx: 14:31 CHF; Diabetes - NIDDM; Hyperlipidemia; neuropathy; Hypertension; ss - PSHx: 14:31 Triple Bypass; ss - Immunization history:: Adult Immunizations unknown. - Social history:: Smoking status: Patient denies any tobacco usage or history of. Screenin:00 Abuse screen: Denies threats or abuse. Denies injuries from another. Nutritional jl7 screening: No deficits noted. Tuberculosis screening: No symptoms or risk factors identified. Fall Risk None identified. Assessment: 15:30 General: Appears in no apparent distress. uncomfortable, Behavior is calm, cooperative, jl7 appropriate for age. Pain: Denies pain. Neuro: Level of Consciousness is awake, alert, obeys commands, Oriented to person, place, time, situation. Cardiovascular: Patient's skin is warm and dry. Respiratory: Airway is patent Respiratory effort is even, unlabored, Respiratory pattern is regular, symmetrical. Derm: Skin is pink, warm \T\ dry. 16:00 Reassessment: Pt reports [facility] home health nurse unable to flush right upper arm double jl7 lumen PICC line. Both lumen's flushed with 20 mL NS in each side, blood return noted. Pt denies any discomfort with flushing. Pt requests for nurse to casting machine set up operator the cefepime 1 gram she was supposed to get this morning. ERD notified and gave VO to go ahead and casting machine set up operator her antibiotic for her. 16:39 Reassessment: medication done infusing, pt denies and discomfort. Awaiting discharge. jl7 Vital Signs: 14:27 Pulse 89; Resp 16; Temp 97.5(TE); Pulse Ox 100% on R/A; Weight 72.57 kg; Height 5 ft. 5 ss in. (165.10 cm); Pain 0/10; 14:31 BP 126 / 56; ss 14:27 Body Mass Index 26.63 (72.57 kg, 165.10 cm) ED Course: 14:20 Patient arrived in ED. ag5 14:21 Hiram Lieberman MD is Private Physician. ag5 14:30 Triage completed. ss 14:31 Arm band placed on right wrist. ss 15:30 Carlos Alcala RN is Primary Nurse. jl7 15:53 Ori Baptiste MD is Attending Physician. kdr 16:00 Patient has correct armband on for positive identification. Bed in low position. Call jl7 light in reach. Side rails up X 1. 16:14 No provider procedures requiring assistance completed. Patient did not have IV access jl7 during this emergency room visit. 16:51 Hiram Lieberman MD is Referral Physician. kdr Administered Medications: No medications were administered Outcome: 16:53 Discharge ordered by . kdr 16:57 Discharged to home ambulatory. jl7 16:57 Condition: stable 16:57 Discharge instructions given to patient, Instructed on discharge instructions, follow up and referral plans. Demonstrated understanding of instructions, follow-up care. 16:58 Patient left the ED. jl7 Signatures: Ori Baptiste MD MD kdr Winnie Barger RN RN ss Carlos Alcala, RN RN jl7 Dhaval Mccord 5
--- NOTE | 2020-03-05 16:54 | EDPHYS ---
Physician Documentation [facility] Name: Mildred Kelly Age: 69 yrs Sex: Female : 1950 Arrival Date: 03/05/2020 Time: 14:20 Bed 17 Private MD: Hiram Lieberman U ED Physician Ori Baptiste HPI: 03/06 07:21 This 69 yrs old Female presents to ER via Ambulatory with complaints of Picc kdr Line Problem. 07:21 Home health came to her house and was unable to get the PICC line to flush. Onset: The kdr symptoms/episode began/occurred suddenly, just prior to arrival. Severity of symptoms: At their worst the symptoms were very mild in the emergency department the symptoms are unchanged. The patient has not experienced similar symptoms in the past. The patient has not recently seen a physician. Historical: - Allergies: 03/05 14:31 No Known Allergies; ss - PMHx: 14:31 CHF; Diabetes - NIDDM; Hyperlipidemia; neuropathy; Hypertension; ss - PSHx: 14:31 Triple Bypass; ss - Immunization history:: Adult Immunizations unknown. - Social history:: Smoking status: Patient denies any tobacco usage or history of. ROS: 03/06 07:21 Constitutional: Negative for fever, chills, and weight loss, Eyes: Negative for injury, kdr pain, redness, and discharge. MS/extremity: Positive for PICC Line in right AC. Exam: 07:21 Constitutional: This is a well developed, well nourished patient who is awake, alert, kdr and in no acute distress. 07:21 Musculoskeletal/extremity: Extremities: grossly normal except: noted in the right antecubital area: There is a functioning PICC line in the right AC after the nursed flushed the ports. The patient is stable and non-acute in the ED, ROM: no acute changes, Circulation is intact in all extremities. Sensation intact. Vital Signs: 03/05 14:27 Pulse 89; Resp 16; Temp 97.5(TE); Pulse Ox 100% on R/A; Weight 72.57 kg; Height 5 ft. 5 ss in. (165.10 cm); Pain 0/10; 14:31 BP 126 / 56; ss 14:27 Body Mass Index 26.63 (72.57 kg, 165.10 cm) MDM: 16:53 Patient medically screened. kdr 03/06 07:21 Data reviewed: vital signs, nurses notes. Counseling: I had a detailed discussion with [facility] the patient and/or guardian regarding: the historical points, exam findings, and any diagnostic results supporting the discharge/admit diagnosis, the need for outpatient follow up. Administered Medications: No medications were administered Disposition: 03/05/20 16:53 Discharged to Home. Impression: PICC Line - Non-patent. - Condition is Stable. - Discharge Instructions: PICC Home Guide. - Medication Reconciliation Form, Thank You Letter form. - Follow up: Hiram Lieberman MD; When: 2 - 3 days; Reason: If symptoms return, Further diagnostic work-up, Recheck today's complaints, Continuance of care, Re-evaluation by your physician. - Problem is new. - Symptoms are resolved. Signatures: Ori Baptiste MD MD [facility] Winnie Barger RN RN Carlos Alcala RN RN jl7 Corrections: (The following items were deleted from the chart) 03/05 16:58 16:53 03/05/2020 16:53 Discharged to Home. Impression: PICC Line - Non-patent. jl7 Condition is Stable. Forms are Medication Reconciliation Form, Thank You Letter, Antibiotic Education, Prescription Opioid Use. Follow up: Hiram Lieberman; When: 2 - 3 days; Reason: If symptoms return, Further diagnostic work-up, Recheck today's complaints, Continuance of care, Re-evaluation by your physician. Problem is new. Symptoms are resolved. kdr
[2020-03-05 17:15] VITALS: TEMP 97.5; O2SAT 100
[2020-03-05 17:16] VITALS: BP 126/56
== END 2020-03-05 16:58 | disposition home or self-care (01) ==
LOC: ER 14:18
DX: Z45.2 Encounter for adjustment and management of vascular access device (principal); I10 Essential (primary) hypertension
CPT/HCPCS: 99281

== ENCOUNTER 2020-03-15 22:19 | Emergency (ER) | payer OTHER ==
--- OUTSIDE RECORDS SUMMARY | 2020-03-15 22:22 | XMS REPORT | Continuity of Care Document ---
:1950 Author Organization [facility] t Address [address] [place] [address] Care Team Providers Name Role Phone Randi [...] nonprolife nonprolife Jesusita kes - rative rative [facility] diabetic diabetic l retinopath retinopath Ou [...] breakdown breakdown l [facility] En[facility] Problem Active [facility] - gynecologi gynecologi Me moria akhil akhil l examinatio examinatio Ou tpati n without n without ent abnormal abnormal Clinic s finding finding Postmenopa Postmenopa Problem Active [facility] us[facility] usal [facility] - [facility] l [facility] ent Clinics Allergies, Adverse Reactions, Alerts This patient has no known allergies or adverse reactions. Medications Ordered Filled Start Stop Current Ordering Indication Dosage Frequency Signature Comments Components Source Medication Medication Date Date Medication? Clinician (SIG) Name Name One Touch One Touch 2017-09 Yes Mo [address] Delica Delica 0-22 Colleen [facility] - Lancets Lancets 00:00: Memoria 00 [facility] ent [facility] One Touch One Touch 2017-09 2019- No Mo as [facility] Ultra Test Ultra Test 0-22 04-20 Colleen directed [facility] - Strips Strips 00:00: 00:00 Memoria 00 :00 [facility] ent [facility] Lyrica Lyrica Yes Mo [address] 8-06 Colleen [facility] - 00:00: Memoria 00 [facility] ent [facility] Metoprolol Metoprolol Yes Mo [address] [address] Tartrate Tartrate Colleen with food L ukes - [facility] ent [facility] Furosemide Furosemide Yes Mo [address] Colleen [facility] - [facility] Metformin Metformin Yes Mo [address] HCl HCl Colleen with a Lukes - meal [facility] ent [facility] Clopidogrel Clopidogrel Yes Mo [address] Bisulfate Bisulfate Colleen Luke s - [facility] ent Clinics Pravastatin Pravastatin Yes Mo [address] Sodium Sodium Colleen [facility] - [facility] ent [facility] Potassium Potassium Yes Mo [address] Chloride Chloride Colleen with food L ukes - [facility] ent Clinics Procedures This patient has no known procedures. Encounters Start End Encounter Admission Attending Care Care Encounter Source Date/Time Date/Time Type Type Clinicians Facility Department ID 2020-02-04 2020-02-04 [facility] [id number] 00:00:00 00:00:00 Randi Matias [id number] [place] [id number] Professio [phone] [facility] 377 [facility] 2020-01-24 2020-01-24 [facility] [id number] 00:00:00 00:00:00 Randi Matias [id number] [place] [id number] Professio [phone] [facility] 377 [facility] 2020-01-23 2020-01-23 Transition Karel Alvarez [id number] 00:00:00 00:00:00 of Care Jamir Britta Keating [id number] [place] [id number] [facility] 2020-01-20 2020-01-22 [facility] Ajay Fuentes Chary [facility] [id number] 15:50:49 15:49:00 Encounter Shaheen August [id number] [place] [id number] [place] [id number] [facility] 2019-05-14 2019-05-14 [facility] [id number] 14:48:59 16:09:33 Visit Justina Matias [id number] [place] [id number] Professio [phone] [facility] 220 [facility] 2019-01-23 2019-01-23 [facility] [id number] [facility] [address] 11:44:00 11:44:00 t [facility] ent Clinics 2019-01-03 2019-01-03 [facility] [id number] 13:39:00 13:39:00 t [facility] Medicine Outpati ent Clinics 2018-09-20 2018-09-20 [facility] [id number] 09:51:00 09:51:00 t [facility] Medicine Outpati ent Clinics 2018-09-04 2018-09-04 [facility] [id number] 15:15:00 15:15:00 t [facility] Medicine Outpati ent Clinics 2018-08-29 2018-08-29 [facility] [id number] 11:25:00 11:25:00 t [facility] Medicine Outpati ent Clinics 2018-07-09 2018-07-09 [facility] [id number] 15:30:00 15:30:00 t [facility] Medicine Outpati ent Clinics 2018-05-25 2018-05-25 [facility] [id number] 16:23:00 16:23:00 t [facility] Medicine Outpati ent Clinics 2018-05-11 2018-05-11 [facility] [id number] 12:34:00 12:34:00 t [facility] Medicine Outpati ent Clinics 2018-04-24 2018-04-24 [facility] [id number] 10:45:00 10:45:00 t [facility] Medicine Outpati ent Clinics 2018-04-18 2018-04-18 [facility] [id number] 15:42:00 15:42:00 t [facility] Medicine Outpati ent Clinics 2018-03-19 2018-03-19 [facility] [id number] 13:45:00 13:45:00 t [facility] Medicine Outpati ent Clinics 2018-02-07 2018-02-07 [id number] [facility] 13:45:00 13:45:00 t [facility] Medicine Outpati ent Clinics Results This patient has no known results.
--- NOTE | 2020-03-16 00:30 | EDPHYS ---
Physician Documentation [facility] Name: Mildred Kelly Age: 70 yrs Sex: Female : 1950 Arrival Date: 03/15/2020 Time: 22:25 Bed 18 Private MD: ED Physician Nathanael Cannon HPI: 03/15 22:49 This 70 yrs old Female presents to ER via Wheelchair with complaints of Fall cp Injury. 22:49 Details of fall: The patient fell from seated position, out of a chair. Onset: The cp symptoms/episode began/occurred this morning. Associated injuries: The patient sustained injury to the head, contusion, swelling, tenderness, neck injury, pain, right hand and left hand. Severity of symptoms: in the emergency department the symptoms are unchanged, despite home interventions. Historical: - Allergies: 22:35 Levaquin; sg - PMHx: 22:35 CHF; Diabetes - NIDDM; Hyperlipidemia; Hypertension; neuropathy; sg - PSHx: 22:35 Triple Bypass; sg - Immunization history:: Adult Immunizations up to date. - Social history:: Smoking status: Patient denies any tobacco usage or history of. - Immunization history: Last tetanus immunization: unknown. ROS: 22:55 Constitutional: Negative for body aches, chills, fever, poor PO intake. cp 22:55 Eyes: Negative for injury, pain, redness, and discharge. cp 22:55 Cardiovascular: Negative for chest pain. 22:55 Respiratory: Negative for cough, shortness of breath, wheezing. 22:55 Neuro: Positive for headache, Negative for altered mental status, numbness, weakness. 22:55 MS/extremity: Positive for pain, tenderness, of the right hand and left hand, Negative cp for deformity, paresthesias. 22:55 All other systems are negative. cp Exam: 23:00 Constitutional: The patient appears in no acute distress, alert, awake, cp non-diaphoretic, non-toxic, well developed, well nourished. 23:00 Head/face: Noted is contusion, that is superficial, of the left eye and left muslim, cp ecchymosis, that is mild, of the left eye and left muslim, swelling, that is mild, of the left eye and left muslim. 23:00 Eyes: Periorbital structures: appear normal, Pupils: equal, round, and reactive to light and accomodation, Extraocular movements: intact throughout, Conjunctiva: subconjunctival hemorrhage(s), seen in the left eye, medial aspect, Lids and lashes: appear normal, bilaterally. 23:00 ENT: External ear(s): are unremarkable, Nose: is normal, Mouth: Lips: moist, Oral mucosa: moist, Posterior pharynx: Airway: no evidence of obstruction, patent. 23:00 Neck: C-spine: C-collar placed in ED, vertebral tenderness, that is mild, appreciated at C5 and C6, crepitus, is not appreciated. 23:00 Chest/axilla: Inspection: normal, Palpation: is normal, no crepitus, no tenderness. 23:00 Cardiovascular: Rate: normal, Rhythm: regular. 23:00 Respiratory: the patient does not display signs of respiratory distress, Respirations: normal, no use of accessory muscles, no retractions, labored breathing, is not present. 23:00 Abdomen/GI: Exam negative for discomfort, distension, guarding, Inspection: abdomen cp appears normal. 23:00 Back: vertebral tenderness, is not appreciated. 23:00 Neuro: Orientation: to person, place \T\ time. Mentation: able to follow commands, Motor: moves all fours, strength is normal, Sensation: no obvious gross deficits. Vital Signs: 22:32 BP 138 / 57; Pulse 87; Resp 18; Temp 97.7; Pulse Ox 100% on R/A; Pain 5/10; sg 03/16 00:35 BP 125 / 78; Pulse 80; Resp 18; Temp 98; Pulse Ox 100% ; mg2 Clyde Coma Score: 03/15 23:14 Eye Response: spontaneous(4). Verbal Response: oriented(5). Motor Response: obeys mg2 commands(6). Total: 15. 03/16 00:35 Eye Response: spontaneous(4). Verbal Response: oriented(5). Motor Response: obeys mg2 commands(6). Total: 15. Trauma Score (Adult): 03/15 23:14 Eye Response: spontaneous(1); Verbal Response: oriented(1); Motor Response: obeys mg2 commands(2); Systolic BP: > 89 mm Hg(4); Respiratory Rate: 10 to 29 per min(4); Clyde Score: 15; Trauma Score: 12 03/16 00:35 Eye Response: spontaneous(1); Verbal Response: oriented(1); Motor Response: obeys mg2 commands(2); Systolic BP: > 89 mm Hg(4); Respiratory Rate: 10 to 29 per min(4); Clyde Score: 15; Trauma Score: 12 MDM: 03/15 22:38 Patient medically screened. cp 23:00 Differential diagnosis: closed head injury, contusion, fracture, laceration, multiple cp trauma. 03/16 00:30 Data reviewed: vital signs, nurses notes, radiologic studies, CT scan, plain films. cp 00:30 Test interpretation: by ED physician or midlevel provider: xrays of left hand negative cp for fracture and xrays of right hand negative for fracture. Counseling: I had a detailed discussion with the patient and/or guardian regarding: the historical points, exam findings, and any diagnostic results supporting the discharge/admit diagnosis, radiology results, to return to the emergency department if symptoms worsen or persist or if there are any questions or concerns that arise at home. 00:30 Special discussion: Based on the patient's history, exam and DX evaluation, there is no cp indication for emergent intervention or inpatient TX. It is understood by the patient/guardian that if the SXs persist or worsen they need to return immediately for re-evaluation. 03/15 22:47 Order name: XRAY Hand RIGHT 3 View 03/15 22:47 Order name: CT Head C Spine cp 03/15 22:47 Order name: XRAY Hand LEFT 3 View 03/16 00:03 Order name: Splint - Wrist: right; Complete Time: 00:31 cp Administered Medications: 01:24 Not Given (pt dc): Ibuprofen 600 mg PO once mg2 01:25 Not Given (pt dc): Tylenol 1000 mg PO once mg2 Disposition: 00:45 Chart complete. cp 03:11 Co-signature as Attending Physician, Nathanael Cannon MD. ma2 Disposition: 03/16/20 00:30 Discharged to Home. Impression: Contusion of other part of head, Pain in hand and fingers - bilateral, Fall from chair. - Condition is Stable. - Discharge Instructions: Contusion, Head Injury, Adult, Musculoskeletal Pain. - Medication Reconciliation Form, Thank You Letter, Antibiotic Education, Prescription Opioid Use form. - Follow up: Private Physician; When: 2 - 3 days; Reason: Recheck today's complaints. - Problem is new. - Symptoms have improved. Signatures: Dispatcher [employer] EDAnkush Cartagena, RN RN sg Ehsan Brenner PA PA cp Nathanael Cannon MD MD ma2 Jamir Elizalde RN RN mg2 Corrections: (The following items were deleted from the chart) 00:38 00:30 03/16/2020 00:30 Discharged to Home. Impression: Contusion of other part of head; mg2 Pain in hand and fingers - bilateral; Fall from chair. Condition is Stable. Forms are Medication Reconciliation Form, Thank You Letter, Antibiotic Education, Prescription Opioid Use. Follow up: Private Physician; When: 2 - 3 days; Reason: Recheck today's complaints. Problem is new. Symptoms have improved. cp 01:26 03/15 00:37 Immunization history Last tetanus immunization: unknown mg2 mg2 03/16 20:32 03/15 22:55 All other systems are negative, cp cp
--- NOTE | 2020-03-16 00:30 | ER ---
Nurse's Notes [facility] Name: Mildred Kelly Age: 70 yrs Sex: Female : 1950 Arrival Date: 03/15/2020 Time: 22:25 Bed 18 Private MD: Diagnosis: Contusion of other part of head;Pain in hand and fingers-bilateral;Fall from chair Presentation: 03/15 22:32 Chief complaint: Patient states: I fell this morning while trying to get up and moving sg around, reports fall from standing, bumped left side of face and head, reports having pain there as well as pain in the bilateral arms and wrists, denies LOC report was able to get up on her own. Coronavirus screen: Proceed with normal triage. Ebola Screen: Patient negative for fever greater than or equal to 101.5 degrees Fahrenheit, and additional compatible Ebola Virus Disease symptoms Patient denies exposure to infectious person. Patient denies travel to an Ebola-affected area in the 21 days before illness onset. No symptoms or risks identified at this time. Initial Sepsis Screen: Does the patient meet any 2 criteria? No. Patient's initial sepsis screen is negative. Does the patient have a suspected source of infection? No. Patient's initial sepsis screen is negative. Risk Assessment: Do you want to hurt yourself or someone else? Patient reports no desire to harm self or others. Onset of symptoms was March 15, 2020. Care prior to arrival: None. Transition of care: patient was not received from another setting of care. 22:32 Method Of Arrival: Wheelchair sg 22:32 Acuity: JANE 3 sg 22:35 Note A vascular access device is observed in the RUE, pt reports has completed IV abx sg for wounds to left foot today, awaiting doctors orders for DC per patient. 23:12 Mechanism of Injury: Fall Trauma event details: Injury occurred in the county [place] [address], Injury occurred: at home. Injury occurred: March 15, 2020. 23:38 Care prior to arrival: None. [facility] Trauma Activation: Not Applicable Physician: ED Physician; Name: ; Notified At: ; Arrived At: Physician: General Surgeon; Name: ; Notified At: ; Arrived At: Physician: Radiology; Name: ; Notified At: ; Arrived At: Physician: Respiratory; Name: ; Notified At: ; Arrived At: Physician: Lab; Name: ; Notified At: ; Arrived At: Historical: - Allergies: 22:35 Levaquin; sg - PMHx: 22:35 CHF; Diabetes - NIDDM; Hyperlipidemia; Hypertension; neuropathy; sg - PSHx: 22:35 Triple Bypass; sg - Immunization history:: Adult Immunizations up to date. - Social history:: Smoking status: Patient denies any tobacco usage or history of. - Immunization history: Last tetanus immunization: unknown. Screenin:10 Abuse screen: Denies threats or abuse. Denies injuries from another. Nutritional mg2 screening: No deficits noted. Tuberculosis screening: No symptoms or risk factors identified. Fall Risk Fall in past 12 months (25 points). Primary Survey: 23:11 NO uncontrolled hemorrhage observed. A: The patient is alert. Airway: patent. mg2 Breathing/Chest: Respiratory pattern: regular, Respiratory effort: spontaneous, unlabored, Breath sounds: clear, bilaterally. Chest inspection: symmetrical rise and fall of the chest. Circulation: Skin color: pink. Disability Alert. Exposure/Environment: All clothing and personal items were removed. Forensic evidence collection is not deemed to be indicated at this time. Items placed in patient belonging bag. There is no evidence of uncontrolled external bleeding. Obvious injury(ies) are noted at this time: left eye bruising and right arm pain. 03/16 00:10 Reassessment Airway Airway Patent Breathing/Chest Respiratory pattern Regular mg2 Respiratory effort Spontaneous Unlabored Circulation Color Dendron Disability Alert. Secondary Survey: 03/15 23:12 HEENT: Eyes: Other mild bruising in the left eye. Gastrointestinal: No deficits noted. mg2 : No deficits noted. Musculoskeletal: Circulation, motion, and sensation intact. Capillary refill < 3 seconds. Assessment: 23:09 General: Appears in no apparent distress. comfortable, Behavior is calm, cooperative. mg2 Pain: Complains of pain in right arm and left side of the face. Neuro: Level of Consciousness is awake, alert, obeys commands, Oriented to person, place, time, situation. Cardiovascular: Capillary refill < 3 seconds Patient's skin is warm and dry. Respiratory: Airway is patent Respiratory effort is even, unlabored, Respiratory pattern is regular, symmetrical. GI: No signs and/or symptoms were reported involving the gastrointestinal system. : No signs and/or symptoms were reported regarding the genitourinary system. EENT: No signs and/or symptoms were reported regarding the EENT system. Derm: Bruising that is dark purple, on left eye orbital area. Musculoskeletal: Circulation, motion, and sensation intact. Capillary refill < 3 seconds. 23:15 Reassessment: patient in CT now. mg2 Vital Signs: 22:32 BP 138 / 57; Pulse 87; Resp 18; Temp 97.7; Pulse Ox 100% on R/A; Pain 5/10; sg 03/16 00:35 BP 125 / 78; Pulse 80; Resp 18; Temp 98; Pulse Ox 100% ; mg2 Clyde Coma Score: 03/15 23:14 Eye Response: spontaneous(4). Verbal Response: oriented(5). Motor Response: obeys mg2 commands(6). Total: 15. 03/16 00:35 Eye Response: spontaneous(4). Verbal Response: oriented(5). Motor Response: obeys mg2 commands(6). Total: 15. Trauma Score (Adult): 03/15 23:14 Eye Response: spontaneous(1); Verbal Response: oriented(1); Motor Response: obeys mg2 commands(2); Systolic BP: > 89 mm Hg(4); Respiratory Rate: 10 to 29 per min(4); Clyde Score: 15; Trauma Score: 12 03/16 00:35 Eye Response: spontaneous(1); Verbal Response: oriented(1); Motor Response: obeys mg2 commands(2); Systolic BP: > 89 mm Hg(4); Respiratory Rate: 10 to 29 per min(4); Cleveland Score: 15; Trauma Score: 12 ED Course: 03/15 22:25 Patient arrived in ED. ds1 22:34 Ehsan Brenner PA is PHCP. cp 22:34 Nathanael Cannon MD is Attending Physician. cp 22:34 Triage completed. sg 22:35 Jamir Elizalde, BRETT is Primary Nurse. mg2 22:35 Arm band placed on. sg 23:00 Rigid cervical collar applied and checked by physician. mg2 23:10 Patient has correct armband on for positive identification. Placed in gown. Pulse ox mg2 on. NIBP on. Door closed. Warm blanket given. 23:10 No provider procedures requiring assistance completed. mg2 23:15 Patient maintains SpO2 saturation greater than 95% on room air. Thermoregulation: warm mg2 blanket given to patient. 23:28 CT Head C Spine In Process Unspecified. EDMS 23:51 XRAY Hand RIGHT 3 View In Process Unspecified. EDMS 23:52 XRAY Hand LEFT 3 View In Process Unspecified. EDMS 03/16 00:37 Patient did not have IV access during this emergency room visit. Velcro wrist splint mg2 applied to right wrist. Administered Medications: 01:24 Not Given (pt dc): Ibuprofen 600 mg PO once mg2 01:25 Not Given (pt dc): Tylenol 1000 mg PO once mg2 Intake: 03/15 23:14 PO: 0ml; Total: 0ml. mg2 Outcome: 03/16 00:30 Discharge ordered by MD. cp 00:37 Discharged to home via wheelchair, with family. mg2 00:37 Condition: stable 00:37 Discharge instructions given to patient, family, Instructed on discharge instructions, follow up and referral plans. Demonstrated understanding of instructions, follow-up care. 00:38 Patient left the ED. mg2 00:38 Patient's length of stay was not longer than 2 hours. mg2 Signatures: Dispatcher [employer] EDSD Ankush Rivero, RN RN Lesley Eric ds1 Ehsan Brenner PA PA cp Gardose, Michele, RN RN mg2 Corrections: (The following items were deleted from the chart) 01:03/15 00:37 Immunization history Last tetanus immunization: unknown mg2 mg2 03/16 01:27 00:38 BP 125 / 78; Pulse 80bpm; Resp 18bpm; Pulse Ox 100%; Temp 98F; mg2 mg2
[2020-03-16 01:06] VITALS: O2SAT 100
[2020-03-16 01:08] VITALS: BP 125/78; TEMP 98
--- NOTE | 2020-03-16 08:24 | RAD REPORT ---
EXAM DESCRIPTION: RAD - Hand Right 3 View - 03/15/2020 11:51 pm CLINICAL HISTORY: PAIN Trauma, pain and swelling COMPARISON: Hand Right 3 View dated 10/31/2016; Hand Left 3 View dated 03/15/2020 FINDINGS: Diffuse osteopenia is seen. Vascular calcification is noted. No acute fracture or dislocat ion seen.
--- NOTE | 2020-03-16 08:26 | RAD REPORT ---
EXAM DESCRIPTION: RAD - Hand Left 3 View - 03/15/2020 11:52 pm CLINICAL HISTORY: PAIN Trauma, fall, pain COMPARISON: Hand Left 3 View dated 10/31/2016 FINDINGS: Diffuse osteopenia is seen. Vascular calcifications are noted. No acute fracture is visual ized.
--- NOTE | 2020-03-16 10:35 | RAD REPORT ---
EXAM DESCRIPTION: 1. CT of the head without contrast 2. CT of the cervical spine without contrast. CLINICAL HISTORY: Fall from chair COMPARISON: None available TECHNIQUE: Axial CT of the head obtained from the skull apex to the skull base without contrast. Axi al CT images of the cervical spine obtained from the skull base through the thoracic inlet. Sagittal and coronal reformatted images available. FINDINGS: CT head: No acute intracranial hemorrhage identified. No mass, mass effect, shift of the midline, abnormal ext ra-axial fluid collection or CT evidence of acute ischemic change identified. The ventricular system is unremarkable. Scattered areas of hypodensity in the supratentorial white matter are nonspecific and may represent sequela of chronic small vessel ischemic change. The visualized paranasal sinuses and the mastoids are clear. No skull fracture identified. Visual ized orbits and globes are unremarkable. Intracranial atherosclerosis. Contusion in the left frontal scalp soft tissues. Cervical CT: Alignment of the cervical spine is maintained without evidence of subluxation. The atlantoaxial, at lantodental, and occipitoatlantal intervals are preserved. No fracture identified. Vertebral body h eight preserved. Prevertebral soft tissues are unremarkable. Moderate loss of intervertebral disc height with endplate spondylosis and uncovertebral spurring at C 6/7. Mild neural foraminal narrowing. Spurring of the atlantodental articulation. Visualized skull base is intact. No fracture of the visualized facial bones. Visualized mastoid air c ells and paranasal sinuses are well aerated. Visualized thyroid is unremarkable. No cervical lymphadenopathy. No pneumothorax in the visualized lung apices. IMPRESSION: 1. No acute intracranial abnormality. 2. No acute fracture or subluxation of the cervical spine. 3. Multilevel degenerative change of the cervical spine This exam was performed according to our departmental dose-optimization program, which includes autom ated exposure control, adjustment of the mA and/or kV according to patient size and/or use of iterati ve reconstruction technique. Electronically signed by: Trung Herrera 03/16/2020 12:00 AM CDT Due to temporary technical issues with the PACS/Fluency reporting system, reports are being signed by the in house radiologist without review as a courtesy to ensure prompt reporting. The interpreting r adiologist is fully responsible for the content of the report.
== END 2020-03-16 00:38 | disposition home or self-care (01) ==
LOC: ER 22:19
DX: S00.83XA Contusion of other part of head, initial encounter (principal); M79.642 Pain in left hand; M79.641 Pain in right hand; W07.XXXA Fall from chair, initial encounter; Y93.9 Activity, unspecified; Y92.9 Unspecified place or not applicable; I10 Essential (primary) hypertension; Z88.1 Allergy status to other antibiotic agents
CPT/HCPCS: 70450; 72125; 99284

== ENCOUNTER 2020-09-25 15:08 | Inpatient (IN) | payer OTHER ==
--- OUTSIDE RECORDS SUMMARY | 2020-09-25 15:11 | XMS REPORT | Continuity of Care Document ---
:1950 Author Organization [facility] t Address [address] [place] [address] Care Team Providers Name Role Phone Randi [...] nonprolife nonprolife Jesusita k[facility] - [facility] l retinopath retinopath Ou tpati y of right y of right en t eye eye Clinics associated associated with type with type 2 diabetes 2 diabetes mellitus, mellitus, macular macular edema edema presence presence unspecifie unspecifie d d Traumatic Traumatic Problem Active [facility] ulcer, ulcer, [facility] - limited to limited to Me moria breakdown breakdown [facility] Encounter Encounter Problem Active [facility] for for [facility] - gynecologi gynecologi Me moria akhil akhil l examinatio examinatio Ou tpati n without n without ent abnormal abnormal Clinic s finding finding Postmenopa Postmenopa Problem Active [facility] usal usal [facility] - [facility] ent Clinics Allergies, Adverse Reactions, Alerts This patient has no known allergies or adverse reactions. Medications Ordered Filled Start Stop Current Ordering Indication Dosage Frequency Signature Comments Components Source Medication Medication Date Date Medication? Clinician (SIG) Name Name One Touch One Touch 2017-09 Yes Mo [address] [facility] Delica Delica 0-22 Colleen [facility] - Lancets Lancets 00:00: Memoria 00 [facility] ent [facility] One Touch One Touch 2017-09 2019- No Mo as [facility] Ultra Test Ultra Test 0-22 04-20 Colleen directed [facility] - Strips Strips 00:00: 00:00 Memoria 00 :00 [facility] ent [facility] Lyrica Lyrica Yes Mo [address] 8-06 Colleen [facility] - 00:00: Memoria 00 [facility] ent Clinics Metoprolol Metoprolol Yes Mo [address] [facility] Tartrate Tartrate Colleen with food L ukes - [facility] ent Clinics Furosemide Furosemide Yes Mo [address] [facility] Colleen [facility] - [facility] ent [facility] Metformin Metformin Yes Mo [address] [facility] HCl HCl Colleen with a [facility]ukes - meal [facility] ent Clinics Clopidogrel Clopidogrel Yes Mo [address] [facility] Bisulfate Bisulfate Colleen [facility]ics Pravastatin Pravastatin Yes Mo [address] [facility] [address] Sodium Sodium Colleen [facility] - [facility] ent [facility] Potassium Potassium Yes Mo [address] [facility] [address] Chloride Chloride Colleen with food L ukes - [facility] l [facility] ent Clinics Procedures This patient has no known procedures. Encounters Start End Encounter Admission Attending Care Care Encounter Source Date/Time Date/Time Type Type Clinicians Facility Department ID 2020-02-04 2020-02-04 [facility] [id number] 00:00:00 00:00:00 Randimiko Matias [id number] [place] [id number] Professio [id number] [facility] 2020-01-24 2020-01-24 Telephone [facility] [id number] 00:00:00 00:00:00 Randimiko Matias [id number] [place] [id number] Professio [id number] [facility] 2020-01-23 2020-01-23 Transition Karel Alvarez [id number] 00:00:00 00:00:00 of Care Jamir Britta Keating [id number] [place] [id number] [facility] 2020-01-20 2020-01-22 [facility] Gina Ajay Chary [facility] [id number] 15:50:49 15:49:00 Encounter Shaheen August [id number] [place] [id number] [place] [id number] [facility] 2019-05-14 2019-05-14 [facility] [id number] 14:48:59 16:09:33 Visit Justina Matias [id number] [place] [id number] Professio [id number] [facility] 2019-01-23 2019-01-23 [facility] [id number] [facility] 11:44:00 11:44:00 [facility] 2019-01-03 2019-01-03 [facility] [id number] 13[facility]39:00 13:39:00 t [facility] Medicine Outpati ent Clinics 2018-09-20 2018-09-20 [facility] [id number] [address] 09:51:00 09:51:00 t [facility] Medicine Outpati ent Clinics 2018-09-04 2018-09-04 [facility] [id number] [facility] 15:15:00 15:15:00 t [facility] Medicine Outpati ent Clinics 2018-08-29 2018-08-29 [facility] [id number] [facility] 11:25:00 11:25:00 t [facility] Medicine Outpati ent Clinics 2018-07-09 2018-07-09 [facility] [id number] [address] 15:30:00 15:30:00 t [facility] Medicine Outpati ent Clinics 2018-05-25 2018-05-25 [facility] [id number] [facility] 16:23:00 16:23:00 t [facility] Medicine Outpati ent Clinics 2018-05-11 2018-05-11 [facility] [id number] [facility] [address] 12:34:00 12:34:00 t [facility] Medicine Outpati ent Clinics 2018-04-24 2018-04-24 [facility] [id number] 10:45:00 10:45:00 t [facility] Medicine Outpati ent Clinics 2018-04-18 2018-04-18 [facility] [id number] [address] 15:42:00 15:42:00 t [facility] Medicine Outpati ent Clinics 2018-03-19 2018-03-19 [facility] [id number] 13:45:00 13:45:00 t [facility] Medicine Outpati ent Clinics 2018-02-07 2018-02-07 [facility] [id number] 13:45:00 13:45:00 t [facility] Medicine Outpati ent Clinics Results This patient has no known results.
[2020-09-25] MEDS ORDERED: GLUCAGON 1 MG/VIAL IM PRN (15:46)
--- NOTE | 2020-09-25 16:09 | P.HP ---
Certification for Inpatient Patient admitted to: Inpatient With expected LOS: >2 Midnights Practitioner: I am a practitioner with admitting privileges, knowledge of patient current condition, hospital course, and medical plan of care. Services: Services provided to patient in accordance with Admission requirements found in Title 42 Section 412.3 of the Code of Federal Regulations Patient History Date of Service: 09/25/20 Primary Care Provider: Kike Banuelos History of Present Illness: Patient of Kike Banuelos NP. The patient came to our office today. She had gained 18 lbs from her lab draw on 09/21/20. She had 2 + pedal edema. She had had a bipass on the RLE on 09/17/20. She has been gaining weight in the last 3 months. When she first started coming to us in May she was 175lbs. Current was 202" in the office. She also complaints of orthopnea. She has been elevating her legs after her procedure. Which has worsened her shortness of breath Consider how her weight gain and symptoms are accelerating and it is the coming weekend when the offices will be closed. Decision was made to send the patient to the hospital. Allergies levofloxacin [From Levaquin] Allergy (Verified 09/10/19 00:48) Nausea/Vomiting Home Medications: Furosemide [Lasix*] 40 mg PO DAILY 05/11/16 Metformin HCl [Metformin ER Osmotic] 1,000 mg PO BID 05/11/16 Metoprolol Tartrate [Lopressor*] 50 mg PO BID 05/11/16 Pravastatin [Pravachol*] 40 mg PO DAILY 05/11/16 Naproxen [Naprosyn] 500 mg PO BID 11/13/17 Pregabalin [Lyrica*] 75 mg PO BID 09/04/18 Clopidogrel Bisulfate [Plavix] 75 tab PO DAILY 01/19/19 Insulin Glargine/Lixisenatide [Soliqua 100 Unit-33 Mcg/ml Pen] 30 unit SQ DAILY 01/20/19 - Past Medical/Surgical History Diabetic: Yes -: CAD -: DIABETES -: HTN -: cholesterol -: neuropathy -: Left Leg artery clot removed -: CHF -: triple bypass -: CABG X 3 -: cataract sx - Family History Father -: Stroke Sister -: Cancer Mother -: Heart disease - Social History Alcohol use: No CD- Drugs: No Caffeine use: Yes Review of Systems 10-point ROS is otherwise unremarkable Cardiovascular: Orthopnea, Paroxysmal Noc. Dyspnea, Edema Physical Examination - Physical Exam General: Alert, In no apparent distress HEENT: Atraumatic, PERRLA, Mucous membr. moist/pink, EOMI, Sclerae nonicteric Neck: Supple, 2+ carotid pulse no bruit, No LAD, Without JVD or thyroid abnormality Respiratory: Clear to auscultation bilaterally, Normal air movement Cardiovascular: Regular rate/rhythm, Normal S1 S2, Edema (2+) Gastrointestinal: Normal bowel sounds, No tenderness Musculoskeletal: No tenderness Integumentary: No rashes Neurological: Normal gait, Normal speech, Normal strength at 5/5 x4 extr, Normal tone, Normal affect Lymphatics: No axilla or inguinal lymphadenopathy Assessment and Plan - Problems (Diagnosis) (1) Acute CHF (congestive heart failure) Current Visit: Yes Status: Acute Plan: New onset. Will admit to telemetry. Consult Dr. Wen. Will get an echocardiogram for the patient. Will intensify diuresis. Watch daily weights and I's and O's Will continue arb and metoprolol. Will discuss the plavix and eliquis with Dr. Talavera from [facility]. She may have revieve a stent recently Qualifiers: Heart failure type: systolic Qualified Code(s): I50.21 - Acute systolic (congestive) heart failure (2) Chronic anemia Current Visit: Yes Status: Acute Plan: she is on iron. So a guiac would not be useful. Will follow her cbc. As she has a dvt she needs eliquis. If she needs the plavix is a question. Will need to call her interventional radiologist. To see if she has a stent. (3) CKD (chronic kidney disease) stage 3, GFR 30-59 ml/min Current Visit: Yes Status: Acute Plan: She has actually improved recently. However the patient did get contrast recently. Also requires intensification of her diuresis. Will consult Dr. Walters her regular delivery rn. I have called him and discussed. (4) DVT (deep venous thrombosis) Current Visit: Yes Status: Acute Plan: continue eliquis Qualifiers: DVT location: lower extremity Chronicity: chronic Laterality: right (5) HTN (hypertension) Onset Date: 05/26/16 Current Visit: No Status: Chronic Plan: continue losartan and eliquis Qualifiers: Hypertension type: essential hypertension (6) Hyperlipidemia Onset Date: 09/05/18 Current Visit: No Status: Chronic Plan: continue pravastin Qualifiers: Hyperlipidemia type: mixed hyperlipidemia Qualified Code(s): E78.2 - Mixed hyperlipidemia (7) Type 2 diabetes mellitus with foot ulcer Current Visit: No Status: Chronic Plan: hold metformin as we are diuresis the patient. Will start her on equivalent dosage of levemir and sliding scale for coverage. 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
[2020-09-25] MEDS ORDERED: D50W 25 GM/50 ML VIAL IV PRN (16:29)
[2020-09-25] MEDS: INSULIN -REGULAR HUMAN 50 UNIT/0.5 ML ML SQ SCH ×2 (16:30→21:00)
[2020-09-25 16:45] LABS: Hematocrit 26.8 % (36.0-45.0); Lymphocytes % 15.3 % (15.3-44.8); MPV 8.2 fL (7.6-11.3); RBC Red Blood Cell Count 3.31 M/uL (3.86-4.86)
--- NOTE | 2020-09-25 17:59 | P.PN ---
Date of Service: 09/25/[address] Tolbert from [facility]. She had a ballon angioplasty on 09/17. She needs to be on xarelto 2.5mg bid and plavix 75 mg qday for a month. Also discussed the patient with Dr. Wen and Dr. Walters. Thank you for allowing us to take part in the patients care.
[2020-09-25] MEDS ORDERED: FUROSEMIDE 40 MG/4 ML VIAL IV ONE (19:00)
[2020-09-25] MEDS ORDERED: APIXABAN 5 MG TABLET PO SCH (21:00)
[2020-09-25] MEDS: INSULIN GLARGINE 100 UNITS/ML SQ SCH ×2 (21:00→22:37)
[2020-09-25] MEDS ORDERED: HOME MED 1 EA UNK (Rivaroxaban [Xarelto] 2.5 MG Tablet) PO SCH (21:00)
[2020-09-25] MEDS: FUROSEMIDE 40 MG/4 ML VIAL IV SCH (22:35)
[2020-09-25] MEDS: APIXABAN 2.5 MG TABLET PO SCH (22:35)
[2020-09-25] MEDS: ATORVASTATIN 10 MG TAB PO SCH (22:36)
[2020-09-25] MEDS: SPIRONOLACTONE 25 MG TABLET PO SCH (22:36)
[2020-09-25] MEDS: PREGABALIN 75 MG CAP PO SCH (22:37)
[2020-09-26] MEDS: FUROSEMIDE 40 MG/4 ML VIAL IV SCH ×4 (03:23→21:46)
[2020-09-26] MEDS: METOPROLOL XL 25 MG TAB PO SCH (05:07)
[2020-09-26 06:47] LABS: Basophils % 1.2 % (0-1.3); Hematocrit 25.4 % (36.0-45.0); Lymphocytes % 16.3 % (15.3-44.8); MPV 8.4 fL (7.6-11.3); RBC Red Blood Cell Count 3.19 M/uL (3.86-4.86)
[2020-09-26 07:14] LABS: Magnesium 2.4 mg/dL (1.8-2.4); Phosphorus 4.3 mg/dL (2.5-4.9); Uric Acid 6.7 mg/dL (2.6-6.0)
[2020-09-26 07:21] LABS: Albumin 2.5 g/dL (3.4-5.0); Bilirubin Total 0.4 mg/dL (0.2-1.0); Protein, Total 6.8 g/dL (6.4-8.2); Thyroid Stimulating Hormone 3.48 uIU/mL (0.360-3.740)
[2020-09-26] MEDS: INSULIN -REGULAR HUMAN 50 UNIT/0.5 ML ML SQ SCH ×4 (07:30→21:44)
[2020-09-26] MEDS ORDERED: HOME MED 1 EA UNK (Pravastatin [Pravachol*] 40 MG/TAB Tab) PO SCH (09:00)
[2020-09-26] MEDS ORDERED: FUROSEMIDE 40 MG/4 ML VIAL IV SCH (09:00)
[2020-09-26] MEDS: PREGABALIN 75 MG CAP PO SCH ×2 (09:00→21:48)
[2020-09-26] MEDS: CLOPIDOGREL 75 MG TABLET PO SCH (09:42)
[2020-09-26] MEDS: APIXABAN 2.5 MG TABLET PO SCH ×2 (09:42→21:48)
[2020-09-26] MEDS: LOSARTAN POTASSIUM 50 MG TABLET PO SCH (09:42)
[2020-09-26] MEDS: SPIRONOLACTONE 25 MG TABLET PO SCH ×2 (09:42→21:47)
--- NOTE | 2020-09-26 10:34 | P.PN ---
Subjective Date of Service: 09/26/20 Primary Care Provider: Kike Banuelos diuresised 5lts approx Review of Systems 10-point ROS is otherwise unremarkable General: Other (tiredness) Cardiovascular: Edema (improved from yesterday) Physical Examination - Vital Signs Temperature: 97.5 F Blood Pressure: 159/74 Pulse: 75 Respirations: 16 Pulse Ox (%): 97 - Physical Exam General: Alert, In no apparent distress HEENT: Atraumatic, PERRLA, EOMI Neck: Supple, JVD not distended Respiratory: Clear to auscultation bilaterally, Normal air movement Cardiovascular: Regular rate/rhythm, Normal S1 S2, Edema (improved from yesterday) Gastrointestinal: Normal bowel sounds, No tenderness Musculoskeletal: No tenderness Integumentary: No rashes Neurological: Normal speech, Normal tone, Normal affect Lymphatics: No axilla or inguinal lymphadenopathy - Studies Laboratory Data (last 24 hrs) 09/26/20 06:19: Uric Acid 6.7 H, Phosphorus 4.3, Magnesium 2.4 09/26/20 06:19: Sodium 142, Potassium 4.0, BUN 31 H, Creatinine 1.44 H, Glucose 71 L, Total Bilirubin 0.4, AST 22, ALT 19, Alkaline Phosphatase 127 H 09/26/20 06:19: WBC 6.0, Hgb 8.1 L, Hct 25.4 L, Plt Count 291 09/25/20 16:32: WBC 6.8, Hgb 8.4 L, Hct 26.8 L, Plt Count 274 Assessment & Plan - Problems (Diagnosis) (1) Acute CHF (congestive heart failure) Current Visit: Yes Status: Acute Plan: New onset. Will admit to telemetry. Consult Dr. Wen. Will get an echocardiogram for the patient. Will intensify diuresis. Watch daily weights and I's and O's Will continue arb and metoprolol. Will discuss the plavix and xarelto(was mistakenly entered as eliquis in the H&P) with Dr. Talavera from [facility]. She may have revieve a stent recently 09/26/20 Is improving with Aggressive diuresis. has a negative balance of 5lts Will discuss with Dr. Wen Qualifiers: Heart failure type: systolic Qualified Code(s): I50.21 - Acute systolic (congestive) heart failure (2) Chronic anemia Current Visit: Yes Status: Acute Plan: she is on iron. So a guiac would not be useful. Will follow her cbc. As she has a dvt she needs eliquis. If she needs the plavix is a question. Will need to call her interventional radiologist. To see if she has a stent. (3) CKD (chronic kidney disease) stage 3, GFR 30-59 ml/min Current Visit: Yes Status: Acute Plan: She has actually improved recently. However the patient did get contrast recently. Also requires intensification of her diuresis. Will consult Dr. Walters her regular rescue instructor. I have called him and discussed. 09/26/20 Slight bump in her creatine. Have discussed the paitent with Dr. Walters. Will see how her diuresis progresses. (4) DVT (deep venous thrombosis) Current Visit: Yes Status: Acute Plan: continue eliquis Qualifiers: DVT location: lower extremity Chronicity: chronic Laterality: right (5) HTN (hypertension) Onset Date: 05/26/16 Current Visit: No Status: Chronic Plan: continue losartan and eliquis Qualifiers: Hypertension type: essential hypertension (6) Hyperlipidemia Onset Date: 09/05/18 Current Visit: No Status: Chronic Plan: continue pravastin Qualifiers: Hyperlipidemia type: mixed hyperlipidemia Qualified Code(s): E78.2 - Mixed hyperlipidemia (7) Type 2 diabetes mellitus with foot ulcer Current Visit: No Status: Chronic Plan: hold metformin as we are diuresis the patient. Will start her on equivalent dosage of levemir and sliding scale for coverage. Qualifiers: Diabetes mellitus half-way insulin use: with half-way use Discharge Plan: Home Plan to discharge in: 48 Hours - Code Status/Comfort Care Code Status Assessed: No Physician Review: Patient Assessed, Agree with Above Assessment and Plan Critical Care: No Time Spent Managing Pts Care (In Minutes): 25
[2020-09-26] MEDS: INSULIN GLARGINE 100 UNITS/ML SQ SCH (21:45)
[2020-09-26] MEDS: ATORVASTATIN 10 MG TAB PO SCH (21:47)
[2020-09-27] MEDS: FUROSEMIDE 40 MG/4 ML VIAL IV SCH ×4 (03:57→20:46)
[2020-09-27] MEDS: METOPROLOL XL 25 MG TAB PO SCH (05:50)
[2020-09-27 05:59] LABS: Basophils % 1.3 % (0-1.3); Hematocrit 26.1 % (36.0-45.0); Lymphocytes % 16.1 % (15.3-44.8); MPV 8.4 fL (7.6-11.3); RBC Red Blood Cell Count 3.27 M/uL (3.86-4.86)
[2020-09-27 06:13] LABS: Albumin 2.4 g/dL (3.4-5.0); Bilirubin Total 0.3 mg/dL (0.2-1.0); Potassium 3.8 mmol/L (3.5-5.1); Protein, Total 6.4 g/dL (6.4-8.2)
[2020-09-27] MEDS: INSULIN -REGULAR HUMAN 50 UNIT/0.5 ML ML SQ SCH ×4 (07:30→20:47)
--- NOTE | 2020-09-27 08:33 | PN ---
Date of Progress Note: 09/26/2020 Ms. Kelly is a 70-year-old woman. She was admitted by Dr. Macias for acute on chronic diastolic morgan estive heart failure. Initial weight was 203 pounds. She is down to 192 after diuresis with IV Lasi x. Her last blood pressure was 128/58. She is in sinus rhythm. Her creatinine is 1.47, hemoglobin 8.3, potassium 3.8. Saturation 96% on room air. Her BNP was 17,000. Echocardiogram is pending for tomorrow. Patient is feeling much better. Her edema is much less. She has no rales on examination. She has multiple other problems including PAD, status post stent and right transmetatarsal amputati on of the right fifth digit. She is on Eliquis and Plavix for that. She also has a history of chron ic anemia, hypertension, dyslipidemia, and status post CABG in the past. We will continue to follow her along, but she is doing much better. She can go home whenever it is okay with Dr. Macias after th e echocardiogram is done. She may tolerate a higher dose of Lasix on a higher dose of beta-keyla. We will see what the echo shows first. RENÉ/CHRIS Voice ID: [id number] Report ID: [id number]
--- NOTE | 2020-09-27 08:48 | CON ---
Date of Consultation: 09/25/2020 Reason For Consultation: Congestive heart failure. History Of Present Illness: Ms. Kelly is a 70-year-old [place] woman. I have seen her in e past. She has multiple medical problems including osteomyelitis in the past, PAD. She is status p ost metatarsal right fifth toe amputation. She has diabetes. She has chronic diastolic congestive h eart failure, hypertension, dyslipidemia, anemia, and she has had history of CAD, status post CABG an d recently underwent a right SFA stent by [facility]. She is on Plavix and Eliquis for that. She came in with 18 pounds of weight gain, has been receiving IV Lasix since admission and is slowly improving. She denied any chest pain. She denied any fever or chills. Past Medical History: As stated earlier. Allergies: LEVAQUIN. Review of Systems: Negative. Social History: Negative. Family History: Noncontributory. Medications: Include Eliquis, Lipitor, Plavix, Lasix, losartan, insulin, Aldactone, and metoprolol. Physical Examination: General: When I saw her, she weighed 203 pounds. Vital Signs: Blood pressure is 170/69. HEENT: Negative. Neck: Supple with no bruit. Chest: Clear to auscultation and percussion. Cardiac: Revealed a regular rhythm and rate with an S4 gallop. No murmurs or rubs. Abdomen: Benign. Extremities: Revealed no clubbing, cyanosis, but she had 2+ edema to the knees. Neurologic: Nonfocal. Skin: Dry and intact. Diagnostic Data: Within normal limits except for hemoglobin of 8.4. Her troponin was negative. Impression And Plan: 1.Acute on chronic diastolic congestive heart failure. 2.Peripheral arterial disease, status post recent stent in the right leg by [facility] in [place]. 3.Dyslipidemia. 4.Coronary artery disease, status post coronary artery bypass graft. 5.Hypertension. 6.Diabetes. 7.Anemia. 8.Renal insufficiency. 9.She is status post amputation of the right transmetatarsal fifth digit. I agree with Dr. Macias's assessment and plan. She is on excellent medical regimen including beta blo ckers, Aldactone, TRACIE inhibitor, and Lasix. She is on Eliquis and Plavix, and I think she needs to c ontinue both for at least 3 months as far as the stent is concerned. When she goes home, I think cer tainly her Lasix can be increased. Her metoprolol can be increased since she is still hypertensive. We need to watch her I's and O's, her weight, her renal function. An echocardiogram is pending for Monday. We will continue to follow her along. JOHN PAUL Voice ID: [id number] Report ID: [id number]
[2020-09-27] MEDS: PREGABALIN 75 MG CAP PO SCH ×2 (09:00→20:45)
--- NOTE | 2020-09-27 09:07 | P.CNS ---
Date of Consult: 09/26/20 Reason for Consult: CODI/ CKD Requesting Physician: Mo Macias Primary Care Provider: Kike Banuelos Chief Complaint: Progressive Edema with weight gain History of Present Illness: 70 yo HF CKD, CHF presented to the hospital with 3 months of moderate to severe, progressive weight gain with associated edema and orthopnea. +DUMONT Denies NSAIDs or any change in medications though her medication list demonstrates Na proxen. She had gained 18 lbs from her lab draw on 09/21/20. She had had a bipass on the RLE on 09/17/20. Weight in the past three months increased from 175 to 202lbs. Allergies levofloxacin [From Levaquin] Allergy (Verified 09/10/19 00:48) Nausea/Vomiting Home medications list reviewed: Yes Home Medications: Furosemide [Lasix*] 40 mg PO DAILY 05/11/16 Metformin HCl [Metformin ER Osmotic] 1,000 mg PO BID 05/11/16 Metoprolol Tartrate [Lopressor*] 50 mg PO BID 05/11/16 Pravastatin [Pravachol*] 40 mg PO DAILY 05/11/16 Naproxen [Naprosyn] 500 mg PO BID 11/13/17 Pregabalin [Lyrica*] 75 mg PO BID 09/04/18 Clopidogrel Bisulfate [Plavix] 75 tab PO DAILY 01/19/19 Insulin Glargine/Lixisenatide [Soliqua 100 Unit-33 Mcg/ml Pen] 30 unit SQ DAILY 01/20/19 Rivaroxaban [Xarelto] 2.5 mg PO BID 09/25/20 - Past Medical/Surgical History Diabetic: Yes -: CAD -: DIABETES -: HTN -: cholesterol -: neuropathy -: Left Leg artery clot removed -: CHF -: triple bypass -: CABG X 3 -: cataract sx - Family History Father Medical History: Stroke Sister Medical History: Cancer Mother Medical History: Heart disease - Social History Alcohol use: No CD- Drugs: No Caffeine use: Yes Review of Systems 10-point ROS is otherwise unremarkable General: Weakness, Malaise Respiratory: SOB with Excertion Cardiovascular: Orthopnea, Edema Neurological: Weakness Physical Examination Temp Pulse Resp BP Pulse Ox 97.5 F 76 16 128/58 L 96 09/27/20 04:00 09/27/20 05:50 09/27/20 04:00 09/27/20 05:50 09/27/20 04:00 General: Oriented x3, Cooperative HEENT: Atraumatic, Mucous membr. moist/pink Neck: Supple, JVD distended Respiratory: Diminished Cardiovascular: Regular rate/rhythm, Edema Gastrointestinal: Soft and benign, Non-distended Musculoskeletal: No clubbing, No contractures Integumentary: No rashes, No cyanosis Neurological: Normal speech Laboratory Data (last 24 hrs) 09/27/20 05:32: Sodium 141, Potassium 3.8, BUN 35 H, Creatinine 1.47 H, Glucose 138 H, Total Bilirubin 0.3, AST 19, ALT 15, Alkaline Phosphatase 130 H 09/27/20 05:32: WBC 6.4, Hgb 8.3 L, Hct 26.1 L, Plt Count 315 Conclusions/Impression: A/P: Continue current POC and Medications other than the changes listed. AM Labs PRN. Recommend daily weight. Please see orders for complete details. CODI may be due to CRS and Naproxen therapy -Continue furosemide and spironolactone -May have to tolerate a higher creatinine to optimize the volume status Hypocalcemia -Start Vitamin D CKD III with proteinuria in the setting of DM & HTN complicated by Naproxen -Check UA and quantitative proteinuria -Losartan to reduce proteinuria HTN with CKD/ CHF -Continue Metoprolol and Losartan. Acute on chronic Diastolic CHF with severe exacerbation -Start furosemide and spironolactone -Low sodium diet -Cardiology evaluating the patient. Follow up echocardiogram. DM II with Polyneuropathy and CKD -Titrate insulin as needed. -No sugar/ Low Carb diet. Moderate malnutrition may be complicated by proteinuria -Recommend protein supplementation as tolerated Anemia in chronic illness with iron deficiency -Check iron levels -May benefit from IV iron while admitted.
[2020-09-27] MEDS: LOSARTAN POTASSIUM 50 MG TABLET PO SCH (09:23)
[2020-09-27] MEDS: CLOPIDOGREL 75 MG TABLET PO SCH (09:23)
[2020-09-27] MEDS: SPIRONOLACTONE 25 MG TABLET PO SCH ×2 (09:24→20:45)
[2020-09-27] MEDS: APIXABAN 2.5 MG TABLET PO SCH ×2 (09:28→20:45)
[2020-09-27] MEDS: CALCITROL 0.25 MCG CAP PO SCH (10:39)
[2020-09-27] MEDS: VITAMIN D 5,000 UNIT CAP PO SCH (10:39)
--- NOTE | 2020-09-27 13:24 | P.PN ---
Subjective Date of Service: 09/27/20 Primary Care Provider: Kike Banuelos Chief Complaint: Progressive Edema with weight gain Subjective: Improving PT down approx 6llts. She has lost 16lbs. She may be approaching her dry weight Review of Systems 10-point ROS is otherwise unremarkable Cardiovascular: Edema (1+) Physical Examination - Vital Signs Temperature: 96.9 F Blood Pressure: 132/62 Pulse: 75 Respirations: 18 Pulse Ox (%): 96 - Physical Exam General: Alert, In no apparent distress HEENT: Atraumatic, PERRLA, EOMI Neck: Supple, JVD not distended Respiratory: Clear to auscultation bilaterally, Normal air movement Cardiovascular: Regular rate/rhythm, Normal S1 S2 Gastrointestinal: Normal bowel sounds, No tenderness Musculoskeletal: No tenderness Integumentary: No rashes Neurological: Normal speech, Normal tone, Normal affect Lymphatics: No axilla or inguinal lymphadenopathy - Studies Laboratory Data (last 24 hrs) 09/27/20 05:32: Sodium 141, Potassium 3.8, BUN 35 H, Creatinine 1.47 H, Glucose 138 H, Total Bilirubin 0.3, AST 19, ALT 15, Alkaline Phosphatase 130 H 09/27/20 05:32: WBC 6.4, Hgb 8.3 L, Hct 26.1 L, Plt Count 315 Assessment & Plan - Problems (Diagnosis) (1) Acute CHF (congestive heart failure) Current Visit: Yes Status: Acute Plan: New onset. Will admit to telemetry. Consult Dr. Wen. Will get an echocardiogram for the patient. Will intensify diuresis. Watch daily weights and I's and O's Will continue arb and metoprolol. Will discuss the plavix and xarelto(was mistakenly entered as eliquis in the H&P) with Dr. Talavera from [facility]. She may have revieve a stent recently 09/27 Patient is improving greatly. Plan for an echocardiogram in the morning. Qualifiers: Heart failure type: systolic Qualified Code(s): I50.21 - Acute systolic (congestive) heart failure (2) CKD (chronic kidney disease) stage 3, GFR 30-59 ml/min Current Visit: Yes Status: Acute Plan: She has actually improved recently. However the patient did get contrast recently. Also requires intensification of her diuresis. Will consult Dr. Walters her regular heel scourer. I have called him and discussed. / Patients creatine is staying stable. Will need to recheck as an out patient in a week after discharge. (3) DVT (deep venous thrombosis) Current Visit: Yes Status: Acute Plan: continue eliquis Qualifiers: DVT location: lower extremity Chronicity: chronic Laterality: right (4) HTN (hypertension) Onset Date: 05/26/16 Current Visit: No Status: Chronic Plan: continue losartan and eliquis Qualifiers: Hypertension type: essential hypertension (5) Hyperlipidemia Onset Date: 09/05/18 Current Visit: No Status: Chronic Plan: continue pravastin Qualifiers: Hyperlipidemia type: mixed hyperlipidemia Qualified Code(s): E78.2 - Mixed hyperlipidemia (6) Type 2 diabetes mellitus with foot ulcer Current Visit: No Status: Chronic Plan: hold metformin as we are diuresis the patient. Will start her on equivalent dosage of levemir and sliding scale for coverage. Qualifiers: Diabetes mellitus intermediate designer insulin use: with care home use (7) Chronic anemia Current Visit: Yes Status: Acute Plan: she is on iron. So a guiac would not be useful. Will follow her cbc. As she has a dvt she needs eliquis. If she needs the plavix is a question. Will need to call her interventional radiologist. To see if she has a stent. 09/27. Stable HB. No need for a GI consult in patient. Discharge Plan: Home Plan to discharge in: 24 Hours - Code Status/Comfort Care Code Status Assessed: No Physician Review: Patient Assessed, Agree with Above Assessment and Plan Critical Care: No Time Spent Managing Pts Care (In Minutes): 25
[2020-09-27] MEDS ORDERED: SOD FERRIC GLUC COMPLX/SUCROSE 125 MG in NA CHLORIDE 0.9% 100 ML IV ONE ×4 (15:00)
[2020-09-27] MEDS: INSULIN GLARGINE 100 UNITS/ML SQ SCH (20:46)
[2020-09-27] MEDS: ATORVASTATIN 10 MG TAB PO SCH (20:48)
[2020-09-28] MEDS: FUROSEMIDE 40 MG/4 ML VIAL IV SCH ×2 (02:49→08:34)
[2020-09-28 03:19] VITALS: O2SAT 96
[2020-09-28] MEDS: METOPROLOL XL 25 MG TAB PO SCH (05:30)
[2020-09-28 06:23] LABS: Absolute Lymphocytes (CBC) 1.2 K/uL (0.7-4.9); Basophils % 1.2 % (0-1.3); Hematocrit 29.8 % (36.0-45.0); Lymphocytes % 16.9 % (15.3-44.8); MPV 8.1 fL (7.6-11.3); RBC Red Blood Cell Count 3.79 M/uL (3.86-4.86)
[2020-09-28 06:34] LABS: Albumin 3.1 g/dL (3.4-5.0); Bilirubin Total 0.4 mg/dL (0.2-1.0); Protein, Total 8.1 g/dL (6.4-8.2)
[2020-09-28 06:49] VITALS: BMI 30.4
[2020-09-28] MEDS: INSULIN -REGULAR HUMAN 50 UNIT/0.5 ML ML SQ SCH ×2 (07:30→12:13)
[2020-09-28] MEDS: SPIRONOLACTONE 25 MG TABLET PO SCH (08:33)
[2020-09-28] MEDS: LOSARTAN POTASSIUM 50 MG TABLET PO SCH (08:33)
[2020-09-28] MEDS: PREGABALIN 75 MG CAP PO SCH (08:34)
[2020-09-28] MEDS: CALCITROL 0.25 MCG CAP PO SCH (08:34)
[2020-09-28] MEDS: VITAMIN D 5,000 UNIT CAP PO SCH (08:34)
[2020-09-28] MEDS: APIXABAN 2.5 MG TABLET PO SCH (08:34)
[2020-09-28] MEDS: CLOPIDOGREL 75 MG TABLET PO SCH (08:34)
--- NOTE | 2020-09-28 09:15 | P.DS ---
Admission Date: 09/25/20 Discharge Date: 09/28/20 Primary Care Provider: Kike Banuelos Disposition: ROUTINE DISCHARGE Discharge Condition: GOOD Reason for Admission: Progressive Edema with weight gain - Problems (1) Acute CHF (congestive heart failure) Current Visit: Yes Status: Acute Qualifiers: Heart failure type: systolic Qualified Code(s): I50.21 - Acute systolic (congestive) heart failure (2) CKD (chronic kidney disease) stage 3, GFR 30-59 ml/min Current Visit: Yes Status: Acute (3) DVT (deep venous thrombosis) Current Visit: Yes Status: Acute Qualifiers: DVT location: lower extremity Chronicity: chronic Laterality: right (4) HTN (hypertension) Onset Date: 05/26/16 Current Visit: No Status: Chronic Qualifiers: Hypertension type: essential hypertension (5) Hyperlipidemia Onset Date: 09/05/18 Current Visit: No Status: Chronic Qualifiers: Hyperlipidemia type: mixed hyperlipidemia Qualified Code(s): E78.2 - Mixed hyperlipidemia (6) Type 2 diabetes mellitus with foot ulcer Current Visit: No Status: Chronic Qualifiers: Diabetes mellitus fci insulin 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 The patient came to our office today. She had gained 18 lbs from her lab draw on 09/21/20. She had 2 + pedal edema. She had had a bipass on the RLE on 09/17/20. She has been gaining weight in the last 3 months. When she first started coming to us in May she was 175lbs. Current was 202" in the office. She also complaints of orthopnea. She has been elevating her legs after her procedure. Which has worsened her shortness of breath Consider how her weight gain and symptoms are accelerating and it is the coming weekend when the offices will be closed. Decision was made to send the patient to the hospital. Hospital Course: Patient was sent from the office. She was admitted started on diuretics. She was diuresied well. Had a bump in her creatine. Was mointer by Dr. Walters. The patient is doing well this morning. Will get her echocardiogram and then send her home. Will continue her increased diuresis with lasix 40mg po bid and spirnolactone. Follow up with Mrs Banuelos and Dr. Walters and Dr. Wen as an out patient. Will check her potassium and creatine in the office in a week. Vital Signs/Physical Exam: Temp Pulse Resp BP Pulse Ox 97.7 F 82 16 135/61 95 09/28/20 08:00 09/28/20 08:34 09/28/20 08:00 09/28/20 08:34 09/28/20 08:00 General: Alert, In no apparent distress HEENT: Atraumatic, PERRLA, EOMI Neck: Supple, JVD not distended Respiratory: Clear to auscultation bilaterally, Normal air movement Cardiovascular: Regular rate/rhythm, Normal S1 S2, Edema (much improved) Gastrointestinal: Normal bowel sounds, No tenderness Musculoskeletal: No tenderness Integumentary: No rashes Neurological: Normal speech, Normal tone, Normal affect Lymphatics: No axilla or inguinal lymphadenopathy Laboratory Data at Discharge: WBC 7.1 K/uL (4.3-10.9) 09/28/20 06:02 Hgb 9.8 g/dL (12.0-15.0) L 09/28/20 06:02 Hct 29.8 % (36.0-45.0) L 09/28/20 06:02 Plt Count 372 K/uL (152-406) 09/28/20 06:02 Sodium 139 mmol/L (136-145) 09/28/20 06:02 Potassium 4.0 mmol/L (3.5-5.1) 09/28/20 06:02 BUN 40 mg/dL (7-18) H 09/28/20 06:02 Creatinine 1.55 mg/dL (0.55-1.3) H 09/28/20 06:02 Glucose 110 mg/dL (74-106) H 09/28/20 06:02 Uric Acid 6.7 mg/dL (2.6-6.0) H 09/26/20 06:19 Phosphorus 4.3 mg/dL (2.5-4.9) 09/26/20 06:19 Magnesium 2.4 mg/dL (1.8-2.4) 09/26/20 06:19 Total Bilirubin 0.4 mg/dL (0.2-1.0) 09/28/20 06:02 AST 22 U/L (15-37) 09/28/20 06:02 ALT 20 U/L (12-78) 09/28/20 06:02 Alkaline Phosphatase 151 U/L (45-117) H 09/28/20 06:02 Home Medications: Furosemide [Lasix*] 40 mg PO DAILY 05/11/16 Metformin HCl [Metformin ER Osmotic] 1,000 mg PO BID 05/11/16 Metoprolol Tartrate [Lopressor*] 50 mg PO BID 05/11/16 Pravastatin [Pravachol*] 40 mg PO DAILY 05/11/16 Naproxen [Naprosyn] 500 mg PO BID 11/13/17 Pregabalin [Lyrica*] 75 mg PO BID 09/04/18 Clopidogrel Bisulfate [Plavix] 75 tab PO DAILY 01/19/19 Insulin Glargine/Lixisenatide [Soliqua 100 Unit-33 Mcg/ml Pen] 30 unit SQ DAILY 01/20/19 Rivaroxaban [Xarelto] 2.5 mg PO BID 09/25/20 Furosemide 40 mg PO BID 30 Days #60 tablet 09/28/20 Spironolactone 25 mg PO DAILY 90 Days #90 tablet 09/28/20 New Medications: Furosemide 40 mg PO BID 30 Days #60 tablet Spironolactone 25 mg PO DAILY 90 Days #90 tablet Diet: ADA Activity: Ad riccardo Followup: Mo Macias MD [Primary Care Provider] - 1 Week Kingsley Millard DO [ACTIVE - CAN ADMIT] - 1 Week Jay Wen MD [ACTIVE - CAN ADMIT] - 1-2 Weeks
[2020-09-28 11:49] VITALS: BP 126/60; TEMP 97.6
[2020-09-28 13:19] LABS: Urine Appearance CLOUDY; Urine Bilirubin NEGATIVE (NEG); Urine Blood TRACE (NEG); Urine Color YELLOW; Urine Glucose NEGATIVE (NEG); Urine Protein 1+ (NEG)
[2020-09-28 13:27] LABS: Urine Bacteria LOADED /HPF (<20); Urine RBC <5 /HPF (NONE SEEN)
--- NOTE | 2020-09-28 20:31 | P.PN ---
Date of Service: 09/28/20 Vital Signs Temp Pulse Resp BP Pulse Ox 97.6 F 77 16 126/60 96 09/28/20 11:48 09/28/20 11:48 09/28/20 11:48 09/28/20 11:48 09/28/20 11:48 Lab Results (last 24 hrs) 09/28/20 12:44: Urine Color Yellow, Urine Appearance Cloudy, Urine pH 7.0, Ur Specific Hartshorn 1.010, Glucose (UA)(Auto) Negative, Urine Ketones Negative, Urine Blood Trace H, Urine Nitrite Negative, Urine Bilirubin Negative, Urine Urobilinogen 1.0, Ur Leukocyte Esterase 3+ H, Urine RBC <5, Urine WBC >50 H, Ur Squamous Epith Cells <5, Urine Bacteria Loaded H, Urine Culture Reflexed Reflexed, Urine Total Protein 1+ H 09/28/20 11:39: POC Glucose 228 H 09/28/20 07:46: POC Glucose 98 09/28/20 06:02: Sodium 139, Potassium 4.0, Chloride 102, Carbon Dioxide 32, BUN 40 H, Creatinine 1.55 H, Estimated GFR 33 L, Glucose 110 H, Calcium 9.0 D, Iron 125.0, TIBC 428, Transferrin 306, Transferrin % Sat 29.2, Total Bilirubin 0.4, AST 22, ALT 20, Alkaline Phosphatase 151 H, Serum Total Protein 8.1, Albumin 3.1 L, Globulin 5.0 H, Albumin/Globulin Ratio 0.6 L 09/28/20 06:02: WBC 7.1, RBC 3.79 L, Hgb 9.8 L, Hct 29.8 L, MCV 78.6 L, MCH 25.8 L, MCHC 32.8, RDW 15.3 H, Plt Count 372, MPV 8.1, Neutrophils % 64.7, Lymphocytes % 16.9, Monocytes % 10.7, Eosinophils % 6.5 H, Basophils % 1.2, Absolute Neutrophils 4.6, Absolute Lymphocytes 1.2, Absolute Monocytes 0.8, Absolute Eosinophils 0.5, Absolute Basophils 0.1 09/28/20 05:00: Iron Cancelled, TIBC Cancelled, Transferrin Cancelled, Transferrin % Sat Cancelled Microbiology Results 09/27/20 09:35 Nasopharnyx Coronavirus COVID-19 PCR - Final Assessment/ Plan: Nephrology No acute cardiac or pulmonary compaints. No CP or SOB. No acute events overnight. Feeling better with decreased edema/ swelling. Vitals, medications, blood work and imaging reviewed in the chart. General: Oriented x3, Cooperative HEENT: Atraumatic, Mucous membr. moist/pink Neck: Supple, JVD distended Respiratory: Diminished Cardiovascular: Regular rate/rhythm, Edema Gastrointestinal: Soft and benign, Non-distended Musculoskeletal: No clubbing, No contractures Integumentary: No rashes, No cyanosis Neurological: Normal speech Laboratory Data (last 24 hrs) 09/27/20 05:32: Sodium 141, Potassium 3.8, BUN 35 H, Creatinine 1.47 H, Glucose 138 H, Total Bilirubin 0.3, AST 19, ALT 15, Alkaline Phosphatase 130 H 09/27/20 05:32: WBC 6.4, Hgb 8.3 L, Hct 26.1 L, Plt Count 315 Conclusions/Impression: A/P: Continue current POC and Medications other than the changes listed. AM Labs PRN. Recommend daily weight. Please see orders for complete details. CODI may be due to CRS and Naproxen therapy -Continue furosemide and spironolactone -May have to tolerate a higher creatinine to optimize the volume status Hypocalcemia -Continue Vitamin D CKD III with proteinuria in the setting of DM & HTN complicated by Naproxen -Check UA and quantitative proteinuria -Losartan to reduce proteinuria -No NSAIDs. HTN with CKD/ CHF -Continue Metoprolol and Losartan. Acute on chronic Diastolic CHF with severe exacerbation -Continue furosemide and spironolactone -Low sodium diet DM II with Polyneuropathy and CKD -Titrate insulin as needed. -No sugar/ Low Carb diet. Moderate malnutrition may be complicated by proteinuria -Recommend protein supplementation as tolerated Anemia in chronic illness with iron deficiency -Transfuse PRBC as needed. Case reviewed with Dr. Macias. Recommend Lasix 40mg BID and Spironolactone 25mg daily at discharge.
--- NOTE | 2020-09-29 08:30 | ECHO ---
HEIGHT: 5 ft 5 in WEIGHT: 182 lb 9 oz DATE OF STUDY: 09/28/[address]: Mo Macias MD 2-DIMENSIONAL: YES M.MODE: YES DOPPLER: YES COLOR FLOW: YES TDS: PORTABLE: DEFINITY: BUBBLE STUDY: DIAGNOSIS: ACUTE ON CHRONIC RENAL FAILURE CARDIAC HISTORY: CATHERIZATION: YES SURGERY: YES PROSTHETIC VALVE: NO PACEMAKER: NO MEASUREMENTS (cm) DIASTOLIC (NORMALS) SYSTOLIC (NORMALS) IVSd (0.6-1.2) LA Diam (1.9-4.0) LVEF % LVIDd (3.5-5.7) LVIDs (2.0-3.5) %FS % LVPWd (0.6-1.2) Ao Diam (2.0-3.7) 2 DIMENSIONAL ASSESSMENT: RIGHT ATRIUM: NORMAL LEFT ATRIUM: NORMAL RIGHT VENTRICLE: NORMAL LEFT VENTRICLE: NORMAL TRICUSPID VALVE: MILD TRICUPSID REGURGITATION MITRAL VALVE: MILD MITRAL REGURGITATION PULMONIC VALVE: NORMAL AORTIC VALVE: NORMAL PERICARDIAL EFFUSION: NONE AORTIC ROOT: NORMAL LEFT VENTRICULAR WALL MOTION: POOR WINDOWS RECOMMEND CONTRAST STUDY DOPPLER/COLOR FLOW: SEE BELOW COMMENTS: POOR WINDOW, OVERALL LEFT VENTRICULAR EJECTION FRACTION APPEARS NORMAL BUT RECOMMEND CONTRAST STUDY TO BETTER EVALUATE. MILD MITRAL REGURGITATION. MILD TRICUPSID REGURGITATION. DIASTOLIC DYSFUNCTION. TECHNOLOGIST: SILVERIO VILLA
== END 2020-09-28 13:19 | disposition home health service (06) | DRG 291 ==
LOC: 2ND 15:08
PROVIDERS: ADMIT Internal Medicine; ATTEND Internal Medicine
DX: I13.0 Hypertensive heart and chronic kidney disease with heart failure and stage 1 through stage 4 chronic kidney disease, or unspecified chronic kidney disease (principal); I50.21 Acute systolic (congestive) heart failure; N17.9 Acute kidney failure, unspecified; E44.0 Moderate protein-calorie malnutrition; N18.30 Chronic kidney disease, stage 3 unspecified; I25.10 Atherosclerotic heart disease of native coronary artery without angina pectoris; E78.2 Mixed hyperlipidemia; E11.42 Type 2 diabetes mellitus with diabetic polyneuropathy; E11.51 Type 2 diabetes mellitus with diabetic peripheral angiopathy without gangrene; E11.621 Type 2 diabetes mellitus with foot ulcer; L97.509 Non-pressure chronic ulcer of other part of unspecified foot with unspecified severity; E83.51 Hypocalcemia; N28.9 Disorder of kidney and ureter, unspecified; D50.9 Iron deficiency anemia, unspecified; Z79.899 Other long term (current) drug therapy; Z79.4 Long term (current) use of insulin; Z79.02 Long term (current) use of antithrombotics/antiplatelets; Z89.421 Acquired absence of other right toe(s); Z68.30 Body mass index [BMI] 30.0-30.9, adult; Z95.1 Presence of aortocoronary bypass graft; Z86.718 Personal history of other venous thrombosis and embolism; Z20.822 Contact with and (suspected) exposure to COVID-19
CPT/HCPCS: 36415; 80053; 81001; 82947; 83036; 83540; 83735; 83880; 84100; 84443; 84466; 84550; 85025; 87077; 87086; 87088; 87186; 93306; J1815; J1940; J2916; U0002

== ENCOUNTER 2021-03-15 21:17 | Emergency (ER) | payer OTHER ==
--- OUTSIDE RECORDS SUMMARY | 2021-03-15 21:21 | XMS REPORT | Continuity of Care Document ---
:1950 Author Organization [facility] t Address [address] [place] [address] Care Team Providers Name Role Phone Randi [...] nonprolife nonprolife Jesusita kes - rative rative [facility] diabetic diabetic l retinopath retinopath Ou tpati y of right y of right en t eye eye Clinics associated associated with type with type 2 diabetes 2 diabetes mellitus, mellitus, macular macular edema edema presence presence unspecifie unspecifie d d Traumatic Traumatic Problem Active [facility] ulcer, ulcer, [facility] - limited to limited to Me moria breakdown breakdown l of skin of skin [facility] ent Clinics Encounter Encounter Problem Active [facility] for for [facility] - gynecologi gynecologi Me moria akhil akhil l examinatio examinatio Ou tpati n without n without ent abnormal abnormal Clinic s finding finding Postmenopa Postmenopa Problem Active [facility] usal usal [facility] - [facility] l [facility] ent Clinics Allergies, Adverse Reactions, Alerts This patient has no known allergies or adverse reactions. Medications Ordered Filled Start Stop Current Ordering Indication Dosage Frequency Signature Comments Components Source Medication Medication Date Date Medication? Clinician (SIG) Name Name One Touch One Touch 2017-09 Yes Mo [address] [facility] Delica Delica 0-22 Colleen [facility] - Lancets Lancets 00:00: Memoria 00 [facility] ent [facility] One Touch One Touch 2017-09 2019- No Mo as [facility] Ultra Test Ultra Test 0-22 04-20 Colleen directed [facility] - Strips Strips 00:00: 00:00 Memoria 00 :00 [facility] ent [facility] Lyrica Lyrica Yes Mo [address] 8-06 Colleen [facility] - 00:00: Memoria 00 l [facility] ent Clinics Metoprolol Metoprolol Yes Mo [address] [facility] Tartrate Tartrate Colleen with food L ukes - [facility] ent Clinics Furosemide Furosemide Yes Mo [address] [facility] Metformin Metformin Yes Mo [address] [facility] HCl HCl Colleen with a Lukes - meal [facility] ent [facility] Clopidogrel Clopidogrel Yes Mo [address] [facility] Bisulfate Bisulfate Colleen Luke s - [facility] l [facility] ent Clinics Pravastatin Pravastatin Yes Mo [address] [facility] Sodium Sodium Colleen [facility] - [facility] ent [facility] Potassium Potassium Yes Mo [address] [facility] Chloride Chloride Colleen with food L ukes - [facility] Memoria l [facility] ent Clinics Procedures This patient has no known procedures. Encounters Start End Encounter Admission Attending Care Care Encounter Source Date/Time Date/Time Type Type Clinicians Facility Department ID 2020-02-04 2020-02-04 Telephone [facility] [id number] 00:00:00 00:00:00 Randi Matias [id number] [place] [id number] Professio [id number] [facility] 377 [facility] 2020-01-24 2020-01-24 Telephone [facility] [id number] 00:00:00 00:00:00 Randi Matias [id number] [place] [id number] Professio [id number] [address] 2020-01-23 2020-01-23 Transition Karel Alvarez [id number] 00:00:00 00:00:00 of Care Jamir Callejas Rishabh [id number] [place] [id number] 2020-01-20 2020-01-22 [facility] Gina Ajay Chary [facility] [id number] 15:50:49 15:49:00 Encounter Shaheen August [id number] [place] [id number] [place] [id number] [facility] 2019-05-14 2019-05-14 [facility] [id number] 14:48:59 16:09:33 Visit Justina Matias [id number] [place] [id number] Professio [phone] [facility] 220 [facility] 2019-01-23 2019-01-23 [facility] [id number] 11:44:00 11:44:00 t [facility] - [facility] 2019-01-03 2019-01-03 [facility] [id number] 13:39:00 13:39:00 t [facility] Medicine Outpati ent Clinics 2018-09-20 2018-09-20 [facility] [id number] 09:51:00 09:51:00 t [facility] Medicine Outpati ent Clinics 2018-09-04 2018-09-04 [facility] [id number] 15:15:00 15:15:00 t [facility] Medicine Medicine Outpati ent Clinics 2018-08-29 2018-08-29 [facility] [id number] [address] 11:25:00 11:25:00 t [facility] Medicine Outpati ent Clinics 2018-07-09 2018-07-09 [facility] [id number] [address] 15:30:00 15:30:00 t [facility] Medicine Outpati ent Clinics 2018-05-25 2018-05-25 [facility] [id number] [facility] 16:23:00 16:23:00 t [facility] Medicine Outpati ent Clinics 2018-05-11 2018-05-11 [facility] [id number] [address] 12:34:00 12:34:00 t [facility] Medicine Medicine Outpati ent Clinics 2018-04-24 2018-04-24 [facility] [id number] 10:45:00 10:45:00 t [facility] Medicine Medicine Outpati ent Clinics 2018-04-18 2018-04-18 [facility] [id number] 15:42:00 15:42:00 t [facility] Medicine Outpati ent Clinics 2018-03-19 2018-03-19 [facility] [id number] 13:45:00 13:45:00 t [facility] Medicine Outpati ent Clinics 2018-02-07 2018-02-07 Outpatient Dewayne Stokes [id number] 13:45:00 13:45:00 t [facility] Medicine Medicine Outpati ent Clinics Results This patient has no known results.
[2021-03-16 00:39] LABS: Absolute Lymphocytes (CBC) 1.5 K/uL (0.7-4.9); Basophils % 1.4 % (0-1.3); Hematocrit 30.5 % (36.0-45.0); Lymphocytes % 19.4 % (15.3-44.8); MPV 8.2 fL (7.6-11.3); RBC Red Blood Cell Count 3.83 M/uL (3.86-4.86)
[2021-03-16 00:56] LABS: Potassium 4.1 mmol/L (3.5-5.1)
--- NOTE | 2021-03-16 01:08 | ER ---
Nurse's Notes [facility] Name: Mildred Kelly Age: 71 yrs Sex: Female : 1950 Arrival Date: 03/15/2021 Time: 21:21 Bed 19 Private MD: Diagnosis: Fever, unspecified-NO DIAGNOSIS - DISCHARGED FROM [facility] DUE TO DOWNTIME Presentation: 03/15 21:55 Chief complaint: Patient states: Dr. Mathew sent over pt due to RIGHT foot diabetic em foot ulcer, denies pain. Coronavirus screen: Client denies travel out of the [place] in the last 14 days. Ebola Screen: Patient negative for fever greater than or equal to 101.5 degrees Fahrenheit, and additional compatible Ebola Virus Disease symptoms Patient denies exposure to infectious person. Patient denies travel to an Ebola-affected area in the 21 days before illness onset. No symptoms or risks identified at this time. Initial Sepsis Screen: Does the patient meet any 2 criteria? No. Patient's initial sepsis screen is negative. Does the patient have a suspected source of infection? No. Patient's initial sepsis screen is negative. Risk Assessment: Do you want to hurt yourself or someone else?. Onset of symptoms was March 15, 2021. 21:55 Method Of Arrival: Wheelchair em 21:55 Acuity: JANE 3 em Historical: - Allergies: 21:58 Levaquin; em - Home Meds: 21:58 Lasix 40 mg Oral tab 1 tab once daily [Active]; Lyrica 75 mg Oral 2 times per day em [Active]; metformin 500 mg oral tab 1 tab 2 times per day [Active]; clopidogrel 75 mg oral tab [Active]; metoprolol tartrate 50 mg Oral tab 1 tab 2 times per day [Active]; spironolactone 25 mg Oral tab 1 tab once daily [Active]; - PMHx: 21:58 CHF; Diabetes - NIDDM; Hyperlipidemia; Hypertension; neuropathy; triple bypass; em - Immunization history:: Adult Immunizations up to date. - Social history:: Smoking status: Patient denies any tobacco usage or history of. Screenin:35 Abuse screen: Denies threats or abuse. Nutritional screening: No deficits noted. jb4 Tuberculosis screening: No symptoms or risk factors identified. Fall Risk None identified. Assessment: 23:35 General: Appears in no apparent distress. comfortable, Behavior is calm, cooperative, jb4 appropriate for age. Pain: Denies pain. Neuro: Level of Consciousness is awake, alert, obeys commands, Oriented to person, place, time, situation. Cardiovascular: Patient's skin is warm and dry. Respiratory: Airway is patent Respiratory effort is even, unlabored, Respiratory pattern is regular, symmetrical. GI: No signs and/or symptoms were reported involving the gastrointestinal system. : No signs and/or symptoms were reported regarding the genitourinary system. EENT: No signs and/or symptoms were reported regarding the EENT system. Derm: Skin is pink, warm \T\ dry. Decubitus located on right foot. Musculoskeletal: Circulation, motion, and sensation intact. Range of motion: intact in all extremities. 03/16 00:45 Reassessment: Patient appears in no apparent distress at this time. Patient and/or jb4 family updated on plan of care and expected duration. Pain level reassessed. Patient is alert, oriented x 3, equal unlabored respirations, skin warm/dry/pink. Vital Signs: 03/15 21:55 BP 148 / 63; Pulse 88; Resp 16; Temp 97.3; Pulse Ox 100% on R/A; Weight 84.37 kg; em Height 5 ft. 2 in. (157.48 cm); Pain 0/10; 03/16 00:45 BP 147 / 62; Pulse 71; Resp 18; Pulse Ox 100% on R/A; jb4 03/15 21:55 Body Mass Index 34.02 (84.37 kg, 157.48 cm) em ED Course: 03/15 21:21 Patient arrived in ED. cf2 21:57 Triage completed. em 21:58 Arm band placed on. em 23:35 Patient has correct armband on for positive identification. Bed in low position. Call jb4 light in reach. Side rails up X 1. Pulse ox on. NIBP on. 23:55 Aj Gupta, BRETT is Primary Nurse. jb4 03/16 00:03 Benja Banks MD is Attending Physician. pkl 00:30 Initial lab(s) drawn, by de, sent to lab. Inserted saline lock: 20 gauge in right jb4 antecubital area, using aseptic technique. Blood collected. 00:43 Foot Right 3 View XRAY In Process Unspecified. EDMS Administered Medications: No medications were administered Outcome: 01:06 Discharged to CLOSED OUT FROM [facility] CHARTING. CARE DOCUMENTED IN [facility] FURTHER. sr5 01:07 Discharge ordered by . sr5 01:07 Patient left the ED. sr5 Signatures: Dispatcher [facility] EDMS Benja Banks MD MD pkl Munoz, Edgar RN RN Chacho Lindsay RN RN sr5 Aj Gupta RN RN 4 Kayode Hernandez 2
[2021-03-16 02:07] VITALS: TEMP 97.3; O2SAT 100
[2021-03-16 02:08] VITALS: BP 147/62
[2021-03-16] MEDS ORDERED: PIPERACIL/TAZO 3.375 GM VIAL IV ONE (03:09)
[2021-03-16] MEDS ORDERED: NA CHLORIDE 0.9% 100 ML ONE (03:10)
--- NOTE | 2021-03-16 07:10 | RAD REPORT ---
EXAM DESCRIPTION: RAD - Foot Right 3 View - 03/16/2021 12:43 am CLINICAL HISTORY: diabetic ulcer COMPARISON: Foot Right Wo Cont dated 09/10/2019; Foot Right 3 View dated 09/09/2019 FINDINGS: The right fifth toe and distal fifth metatarsal have been resected since the prior examina tion. Bones are osteopenic. Bone loss changes are present involving the distal aspect of the fourth p roximal phalanx. Small remnant of bone in the distal toe could be the middle or distal phalanx. No ai r or foreign body in the fourth toe. No history to indicate surgical treatment of the fourth toe. 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 First MTP joint degenerative change stable from comparison. IP joint degenerative changes are also st able. Patient has severe degenerative change at the tibiotalar joint space. Plantar arch is flattened. A la rge plantar spur is present with soft tissue calcifications similar to comparison. IMPRESSION: Bone loss changes involving the phalanges of the fourth toe suspected be bone destructiv e osteomyelitis. Historically stated diabetic ulcer was not localized. There was no history provided to indicate prior fourth toe surgical procedure. No other site of bone destructive osteomyelitis suspected. Severe degenerative change at the tibial talar joint space in the right foot pes planus configuration have not changed.
== END 2021-03-16 01:07 | disposition home or self-care (01) ==
LOC: ER 21:17
DX: L03.115 Cellulitis of right lower limb (principal); E11.621 Type 2 diabetes mellitus with foot ulcer; I10 Essential (primary) hypertension; Z88.1 Allergy status to other antibiotic agents
CPT/HCPCS: 85025; 80048; 36415; 85652; 83036; 86140; 73630; 99284; J2543

== ENCOUNTER 2021-05-03 13:28 | Emergency (ER) | payer OTHER ==
--- OUTSIDE RECORDS SUMMARY | 2021-05-03 13:32 | XMS REPORT | Continuity of Care Document ---
:1950 Author Organization [facility] t Address [address] [place] [address] Care Team Providers Name Role Phone Randi [...] nonprolife nonprolife Jesusita kes - rative rative [facility] diabetic diabetic l retinopath retinopath Ou [...] breakdown breakdown l of skin of skin [facility] ent Clinics Encounter Encounter Problem Active [facility] for [facility] - gynecologi gynecologi Me moria akhil akhil l examinatio examinatio Ou tpati n without n without ent abnormal abnormal Clinic s finding finding Postmenopa Postmenopa Problem Active [facility] usal usal [facility] ent Clinics Allergies, Adverse Reactions, Alerts This patient has no known allergies or adverse reactions. Medications Ordered Filled Start Stop Current Ordering Indication Dosage Frequency Signature Comments Components Source Medication Medication Date Date Medication? Clinician (SIG) Name Name One Touch One Touch 2017-09 Yes Mo [address] [facility] Delica Delica 0-22 Colleen [facility] - Lancets Lancets 00:00: Memoria 00 [facility] One Touch One Touch 2017-09 2019- No Mo as [facility] Ultra Test Ultra Test 0-22 04-20 Colleen directed [facility] - Strips Strips 00:00: 00:00 Memoria 00 :00 [facility] Lyrica Lyrica Yes Mo [address] 8-06 Colleen [facility] - 00:00: Memoria 00 [facility] Metoprolol Metoprolol Yes Mo [address] [facility] Tartrate Tartrate Colleen with food L u[facility] - [facility] ent [facility] Furosemide Furosemide Yes Mo [address] [facility] Colleen [facility] Metformin Metformin Yes Mo [address] [facility] [address] HCl HCl Colleen with a Lukes - meal [facility] ent [facility] Clopidogrel Clopidogrel Yes Mo [address] [facility] [address] Bisulfate Bisulfate Colleen Luke s - [facility] ent [facility] Pravastatin Pravastatin Yes Mo [address] [facility] [address] Sodium Sodium Colleen [facility] Potassium Potassium Yes Mo [address] [address] Chloride Chloride Colleen with food L ukes - [facility] Memoria l [facility] ent Clinics Procedures This patient has no known procedures. Encounters Start End Encounter Admission Attending Care Care Encounter Source Date/Time Date/Time Type Type Clinicians Facility Department ID 2020-02-04 2020-02-04 Telephone [facility] [id number] 00:00:00 00:00:00 Randi Matias [id number] [place] [id number] Professio [phone] [facility] 2020-01-24 2020-01-24 Telephone [facility] [id number] 00:00:00 00:00:00 Randi Matias [id number] [place] [id number] Professio [phone] [facility] 2020-01-23 2020-01-23 Transition Karel Alvarez [id number] 00:00:00 00:00:00 of Care Jamir Callejas Rishabh [id number] [place] [id number] 2020-01-20 2020-01-22 [facility] Gina, Ajay Chary [facility] [id number] 15:50:49 15:49:00 Encounter Shaheen August [id number] [place] [id number] Lindsay [id number] 2019-05-14 2019-05-14 [email or web address] [id number] 14:48:59 16:09:33 Visit Justina Matias [id number] [place] [id number] Professio [phone] [facility] 2019-01-23 2019-01-23 [facility] [id number] 11:44:00 11:44:00 [facility] 2019-01-03 2019-01-03 [facility] [id number] 13:39:00 13:39:00 t [facility] Medicine Medicine Outpati ent Clinics 2018-09-20 2018-09-20 [facility] [id number] 09:51:00 09:51:00 t [facility] Medicine Outpati ent Clinics 2018-09-04 2018-09-04 [facility] [id number] [address] 15:15:00 15:15:00 t [facility] Medicine Medicine Outpati ent Clinics 2018-08-29 2018-08-29 [facility] [id number] 11:25:00 11:25:00 t [facility] Medicine Outpati ent Clinics 2018-07-09 2018-07-09 [facility] [id number] 15[facility]30:00 15:30:00 t [facility] Medicine Outpati ent Clinics 2018-05-25 2018-05-25 [facility] [id number] [address] 16:23:00 16:23:00 t [facility] Medicine Outpati ent Clinics 2018-05-11 2018-05-11 [facility] [id number] 12:34:00 12:34:00 t [facility] Medicine Outpati ent Clinics 2018-04-24 2018-04-24 [facility] [id number] 10:45:00 10:45:00 t [facility] Medicine Medicine Outpati ent Clinics 2018-04-18 2018-04-18 [facility] [id number] [address] 15:42:00 15:42:00 t [facility] Medicine Outpati ent Clinics 2018-03-19 2018-03-19 [facility] [id number] 13:45:00 13:45:00 t [facility] Medicine Outpati ent Clinics 2018-02-07 2018-02-07 [facility] [id number] 13:45:00 13:45:00 [facility] Results Test Description Test Time Test Comments Results Result Comments Source VANCOMYCIN TROUGH 2019-07-11 01:15:00 Test Item Value Reference Range Interpretation Comme nts VANCOMYCIN TROUGH (test code 17.5 ug/ml 10.0-20.0 N Please refer to Medication = VANCT) Administration Record (MAR) forlast dose da te and time. CBC W/AUTO [id number] 16:57:00 Test Item Value Reference Range Interpretation Comments WHITE BLOOD CELL (test 6.3 x10 3/uL 3.2-11.5 N code = WBC) CORRECTED WBC (test 6.3 x10 3/uL 3.2-11.5 N -------- code = CWBC) --- --| ~~ Correct ed WBC Result ~~ || WBC has be en corrected due t o NRBC | --- --- --- RED BLOOD CELL (test 3.28 x10(6)/m 3.70-5.10 L code = RBC) HEMOGLOBIN (test code 8.7 g/dL 12.0-15.0 L = HGB) HEMATOCRIT (test code 26.8 % 35.7-44.8 L = HCT) MEAN CELL VOLUME (test 82 fL 80-100 N code = MCV) MEAN CELL HGB (test 26.6 pg 26.2-33.8 N code = MCH) MEAN CELL HGB 32.6 g/dL 30.0-34.0 N CONCENTRATION (test code = MCHC) RED CELL DISTRIBUTION 15.7 % 11.3-14.5 H WIDTH (test code = RDW) PLATELET COUNT (test 282 x10 3/uL 130-408 N code = PLT) MEAN PLATELET VOLUME 7.9 fl 6.4-10.5 N (test code = MPV) WBC [id number] 16:57:00 Test Item Value Reference Range Interpretation Comments TOTAL CELLS COUNTED (test code = 100 #CELLS TCC) SEGMENTED NEUTROPHILS (test code 47 % 43-65 N = SEG) LYMPHOCYTE (test code = LYMPH) 22 % 20.5-45.5 N MONOCYTE (test code = MON) 10 % 5.5-11.7 N EOSINOPHIL (test code = EOS) 20 % 0.9-2.9 H BASOPHIL (test code = BASO) 1 % 0.2-1.0 N BAND ABSOLUTE (test code = 0.00 10 3/uL 0.00-0.70 N BAND#) NEUTROPHIL ABSOLUTE (test code = 2.96 10 3/uL 6.00-26.00 L SEG#) LYMPH ABSOLUTE (test code = 1.4 10 3/uL 2.00-17.00 L LYMPH#) ATYPICAL LYMPH ABSOLUTE (test 0.00 10 3/uL 0.00-0.00 N code = ALYMPH#) MONOCYTE ABSOLUTE (test code = 0.63 10 3/uL 0.40-3.10 N MON#) BASOPHIL ABSOLUTE (test code = 0.06 10 3/uL 0.00-0.20 N BASO#) EOSINOPHIL ABSOLUTE (test code = 1.26 10 3/uL 0.00-0.50 H EOS#) METAMYELOCYTE ABSOLUTE (test 0.00 10 3/uL 0.00-0.00 N code = META#) MYELOCYTE ABSOLUTE (test code = 0.00 10 3/uL 0.00-0.00 N MYELO#) PROMYELOCYTE ABSOLUTE (test code 0.00 10 3/uL 0.00-0.00 N = PROM#) BLASTS ABSOLUTE (test code = 0.00 10 3/uL 0.00-0.00 N BLAST#) OTHER CELLS ABSOLUTE (test code 0.00 10 3/uL 0.00-0.00 N = OCT#) RBC MORPHOLOGY COMMENT (test Normal NORMAL code = MOC) PLATELET MORPHOLOGY (test code = NORMAL NORMAL PLTMORPH) BASIC METABOLIC [id number] 16:16:00 Test Item Value Reference Range Interpretation Comments SODIUM (test code = 139 mmol/L 135-145 N NA) POTASSIUM (test code 4.2 mmol/L 3.6-5.0 N = K) CHLORIDE (test code = 99 mmol/L 101-111 L CL) CARBON DIOXIDE (test 28 mmol/L 21-31 N code = CO2) GLUCOSE (test code = 80 mg/dl 70-100 N GLU) BLOOD UREA NITROGEN 30 mg/dl 6-20 H (test code = BUN) GLOMERULAR FILTRATION 36 >60 L The es timated RATE (test code = glomerular filtration GFR) rate is compute d usingpatient ra ce, age (>18), sex, and serum creatinine. If anyof the needed data elements are mi ssing the Laboratory cannot compute an nikki mation of the glomerul ar filtration rate . CREATININE (test code 1.54 mg/dL 0.44-1.03 H = CREAT) CALCIUM (test code = 9.1 mg/dL 8.5-10.5 N CA) VANCOMYCIN [id number] 16:16:00 Test Item Value Reference Range Interpretation Comments VANCOMYCIN TROUGH 18.4 ug/ml 10.0-20.0 N Please ref er to (test code = VANCT) Medicati on Administration Record (MAR) forlast d ose date and time. CBC W/AUTO [id number] 16:00:00 Test Item Value Reference Range Interpretation Comments WHITE BLOOD CELL (test code = 6.3 x10 3/uL 3.2-11.5 N WBC) RED BLOOD CELL (test code = 3.28 x10(6)/m 3.70-5.10 L RBC) HEMOGLOBIN (test code = HGB) 8.7 g/dL 12.0-15.0 L HEMATOCRIT (test code = HCT) 26.8 % 35.7-44.8 L MEAN CELL VOLUME (test code = 82 fL 80-100 N MCV) MEAN CELL HGB (test code = MCH) 26.6 pg 26.2-33.8 N MEAN CELL HGB CONCENTRATION 32.6 g/dL 30.0-34.0 N (test code = MCHC) RED CELL DISTRIBUTION WIDTH 15.7 % 11.3-14.5 H (test code = RDW) PLATELET COUNT (test code = 282 x10 3/uL 130-408 N PLT) MEAN PLATELET VOLUME (test code 7.9 fl 6.4-10.5 N = MPV) WBC [id number] 16:00:00 Test Item Value Reference Range Interpretation Comments TOTAL CELLS COUNTED (test code = TCC) #CELLS RBC MORPHOLOGY COMMENT (test code = NORMAL MOC) PLATELET MORPHOLOGY (test code = NORMAL PLTMORPH) CBC W/AUTO [id number] 16:00:00 Test Item Value Reference Range Interpretation Comments WHITE BLOOD CELL (test code = 6.3 x10 3/uL 3.2-11.5 N WBC) RED BLOOD CELL (test code = 3.28 x10(6)/m 3.70-5.10 L RBC) HEMOGLOBIN (test code = HGB) 8.7 g/dL 12.0-15.0 L HEMATOCRIT (test code = HCT) 26.8 % 35.7-44.8 L MEAN CELL VOLUME (test code = 82 fL 80-100 N MCV) MEAN CELL HGB (test code = MCH) 26.6 pg 26.2-33.8 N MEAN CELL HGB CONCENTRATION 32.6 g/dL 30.0-34.0 N (test code = MCHC) RED CELL DISTRIBUTION WIDTH 15.7 % 11.3-14.5 H (test code = RDW) PLATELET COUNT (test code = 282 x10 3/uL 130-408 N PLT) MEAN PLATELET VOLUME (test code 7.9 fl 6.4-10.5 N = MPV) WBC [id number] 16:00:00 Test Item Value Reference Range Interpretation Comments TOTAL CELLS COUNTED (test code = TCC) #CELLS RBC MORPHOLOGY COMMENT (test code = NORMAL MOC) PLATELET MORPHOLOGY (test code = NORMAL PLTMORPH)"
[2021-05-03 20:34] LABS: Absolute Lymphocytes (CBC) 1.7 K/uL (0.7-4.9); Basophils % 0.7 % (0-1.3); Lymphocytes % 23.5 % (15.3-44.8); MPV 7.9 fL (7.6-11.3); RBC Red Blood Cell Count 4.18 M/uL (3.86-4.86)
[2021-05-03 20:47] LABS: Potassium 4.4 mmol/L (3.5-5.1)
--- NOTE | 2021-05-03 20:49 | RAD REPORT ---
EXAM DESCRIPTION: RAD - Foot Right 3 View - 05/03/2021 8:29 pm CLINICAL HISTORY: wound, r/o osteomyeliti COMPARISON: Right foot March 16 FINDINGS: Bones appear osteopenic. No acute posttraumatic fracture changes identifiable. Right fifth toe and distal fifth metatarsal have been surgically resected. Bone loss changes in the phalanges ri ght fourth toe have not changed since March 16 it is unknown if the patient has an active wound of the fourth toe. Lateral right foot wound is evident. Air is seen at the soft tissues lateral margin of t he fifth metatarsal stump. Subtle cortical changes are seen along the distal lateral margin of the fi fth metatarsal stump. Differential is subtle but early osteomyelitis suspected. Flattened plantar arch is present. Advanced tibiotalar joint space degenerative changes are present. Plantar soft tissue calcifications near the calcaneus have not changed. No foreign body in the soft tissues. IMPRESSION: No martínez new bone destructive changes are identifiable. There are subtle lucency changes along the lateral cortical margin fifth metatarsal remnant. Findings are concerning for early osteom yelitis. There is air in the soft tissues in this region. Bone loss changes in the fourth toe have not changed since March 16. No history is noted regarding the fourth toe wound.
--- NOTE | 2021-05-03 21:03 | EDPHYS ---
Physician Documentation [facility] Name: Mildred Kelly Age: 71 yrs Sex: Female : 1950 Arrival Date: 05/03/2021 Time: 13:31 Bed DIS11 Private MD: ED Physician Ehsan Montague HPI: 05/03 21:47 This 71 yrs old Female presents to ER via Ambulatory with complaints of Foot kb Pain. 21:47 The patient presents with pain, swelling, open wound. The complaints affect the right kb foot. Context: the patient is able to ambulate. Onset: The symptoms/episode began/occurred yesterday. Modifying factors: The symptoms are alleviated by nothing, the symptoms are aggravated by nothing. Associated signs and symptoms: Pertinent positives: swelling, Pertinent negatives: calf tenderness, fever, nausea, numbness, rash, tingling, vomiting, warmth, weakness. Severity of symptoms: At their worst the symptoms were moderate, in the emergency department the symptoms are unchanged. The patient has experienced similar episodes in the past. The patient has been recently seen by a physician:. Pt reports she has had a wound that she has been going to wound care for for 2 months. Yesterday she noticed another wound.. Historical: - Allergies: 14:42 Levaquin; hb - Social history:: Smoking status: Patient denies any tobacco usage or history of. ROS: 21:46 Constitutional: Negative for fever, chills, and weight loss. kb 21:46 Skin: Positive for swelling, wound. 21:46 All other systems are negative. Exam: 21:46 Constitutional: This is a well developed, well nourished patient who is awake, alert, kb and in no acute distress. Head/Face: Normocephalic, atraumatic. ENT: Moist Mucous membranes Respiratory: Respirations even and unlabored. No increased work of breathing, no retractions or nasal flaring. MS/ Extremity: Pulses equal, no cyanosis. Neurovascular intact. Full, normal range of motion. Neuro: Awake and alert, GCS 15, oriented to person, place, time, and situation. Moves all extremities. Normal gait. Psych: Awake, alert, with orientation to person, place and time. Behavior, mood, and affect are within normal limits. 21:46 Skin: open wound with slight swelling to lateral right foot. Vital Signs: 14:41 BP 126 / 65; Pulse 81; Resp 16; Temp 97.5; Pulse Ox 100% on R/A; Pain 4/10; hb 21:30 BP 162 / 72; Pulse 66; Resp 16 S; Temp 96.3(TE); Pulse Ox 98% on R/A; lp1 MDM: 19:34 Patient medically screened. kb 21:04 Data reviewed: vital signs, nurses notes, I have discussed the patient's kb presentation/case with the attending Emergency Department Physician;. Data interpreted: Pulse oximetry: on room air is 100 %. Interpretation: normal. Counseling: I had a detailed discussion with the patient and/or guardian regarding: the historical points, exam findings, and any diagnostic results supporting the discharge/admit diagnosis, lab results, radiology results, the need for outpatient follow up, a family practitioner, to return to the emergency department if symptoms worsen or persist or if there are any questions or concerns that arise at home. 05/03 19:40 Order name: CBC with Diff; Complete Time: 20:40 kb 05/03 19:40 Order name: Basic Metabolic Panel; Complete Time: 20:48 kb 05/03 19:40 Order name: Blood Culture Adult (2) kb 05/03 20:29 Order name: Foot Right 3 View; Complete Time: 20:53 EDMS 05/03 19:40 Order name: IV Start; Complete Time: 20:38 kb Administered Medications: 21:17 Drug: Augmentin (Amoxicillin-Clavulanate) 875 mg Route: PO; bb 21:31 Follow up: Response: No adverse reaction lp1 21:17 Drug: Bactrim (trimethoprim-sulfamethoxazole) (160 mg-800 mg (DS) 1 tablet Route: PO; bb 21:31 Follow up: Response: No adverse reaction lp1 Disposition: 05/04 08:06 Co-signature as Attending Physician, Ehsan Montague MD I agree with the assessment and travis plan of care. Disposition Summary: 05/03/21 21:03 Discharge Ordered Location: Home kb Condition: Stable kb Diagnosis - Foot Laceration/ Open wound of foot - wound, early osteomyelitis kb Followup: kb - With: Emergency Department - When: As needed - Reason: Worsening of condition Followup: kb - With: Private Physician - When: 2 - 3 days - Reason: Recheck today's complaints, Continuance of care, Re-evaluation by your physician Discharge Instructions: - Discharge Summary Sheet kb - Osteomyelitis, Adult kb - Wound Care, Adult kb Forms: - Medication Reconciliation Form kb - Thank You Letter kb - Antibiotic Education kb - Prescription Opioid Use kb Prescriptions: - Augmentin 875-125 mg Oral Tablet - take 1 tablet by ORAL route every 12 hours for 10 days; 20 tablet; Refills: 0, kb Product Selection Permitted - Bactrim DS 800-160 mg Oral Tablet - take 1 tablet by ORAL route every 12 hours for 10 days; 20 tablet; Refills: 0, kb Product Selection Permitted Signatures: Dispatcher [employer] EDArlet Coronado, CUT TO LENGTH OPERATOR-C CUT TO LENGTH OPERATOR-Ehsan Laura MD MD cha Ballard, Brenda, RN RN Rosalinda Johnson, BRETT RN Yasmeen Phan RN lp1 Corrections: (The following items were deleted from the chart) 05/03 20:28 19:41 Foot Left 3 View+[email or web address] ordered. EDAL EDMS
--- NOTE | 2021-05-03 21:03 | ER ---
Nurse's Notes [facility] Name: Mildred Kelly Age: 71 yrs Sex: Female : 1950 Arrival Date: 05/03/2021 Time: 13:31 Bed DIS11 Private MD: Diagnosis: Foot Laceration/ Open wound of foot-wound, early osteomyelitis Presentation: 05/03 14:41 Chief complaint: Sent by Dr. Mathew for chronic wound on right foot. Coronavirus hb screen: At this time, the client does not indicate any symptoms associated with coronavirus-19. Ebola Screen: No symptoms or risks identified at this time. Initial Sepsis Screen: Does the patient meet any 2 criteria? No. Patient's initial sepsis screen is negative. Does the patient have a suspected source of infection? No. Patient's initial sepsis screen is negative. Risk Assessment: Do you want to hurt yourself or someone else? Patient reports no desire to harm self or others. Onset of symptoms was May 03, 2021. 14:41 Method Of Arrival: Ambulatory hb 14:41 Acuity: JANE 3 hb Historical: - Allergies: 14:42 Levaquin; hb - Social history:: Smoking status: Patient denies any tobacco usage or history of. Assessment: 21:29 Reassessment: Patient is alert, oriented x 3, equal unlabored respirations, skin lp1 warm/dry/pink. pt seen by this RN at discharge. Pt's right foot rewrapped with new gauze. Pt verbalized understanding of and agrees to plan of care discharge instructions given pt ambulated to exit. Vital Signs: 14:41 BP 126 / 65; Pulse 81; Resp 16; Temp 97.5; Pulse Ox 100% on R/A; Pain 4/10; hb 21:30 BP 162 / 72; Pulse 66; Resp 16 S; Temp 96.3(TE); Pulse Ox 98% on R/A; lp1 ED Course: 13:31 Patient arrived in ED. mr 14:42 Triage completed. hb 14:42 Arm band placed on. hb 19:34 Arlet Harden FNP-C is PHCP. kb 19:34 Ehsan Montague MD is Attending Physician. kb 20:29 Foot Right 3 View In Process Unspecified. EDMS 21:31 No provider procedures requiring assistance completed. IV discontinued, intact, lp1 bleeding controlled, No redness/swelling at site. Pressure dressing applied. Administered Medications: 21:17 Drug: Augmentin (Amoxicillin-Clavulanate) 875 mg Route: PO; bb 21:31 Follow up: Response: No adverse reaction lp1 21:17 Drug: Bactrim (trimethoprim-sulfamethoxazole) (160 mg-800 mg (DS) 1 tablet Route: PO; bb 21:31 Follow up: Response: No adverse reaction lp1 Outcome: 21:03 Discharge ordered by MD. parson 21:31 Discharged to home ambulatory. lp1 21:31 Condition: stable 21:31 Discharge instructions given to patient, Instructed on discharge instructions, follow up and referral plans. medication usage, Demonstrated understanding of instructions, follow-up care, medications, Prescriptions given X 2. 21:32 Patient left the ED. lp1 Signatures: Dispatcher [employer] EDMS Arlet Harden, BURAK SALES OPERATIONS LEAD-Rubia Vázquez mr Radha Jones RN RN bb Yasmeen Esparza RN RN lp1 Rosalinda Reyes, BRETT RN
[2021-05-03] MEDS ORDERED: AMOX/K CLAV 875 MG TAB ONE (21:33)
[2021-05-03] MEDS ORDERED: SMZ./TMP. 800/160 MG TABLET ONE (21:33)
[2021-05-03 21:43] VITALS: BP 162/72; TEMP 96.3; O2SAT 98
== END 2021-05-03 21:32 | disposition home or self-care (01) ==
LOC: ER 13:28
DX: M86.9 Osteomyelitis, unspecified (principal); Z88.3 Allergy status to other anti-infective agents
CPT/HCPCS: 36415; 80048; 85025; 87040; 99283

== ENCOUNTER 2021-06-03 13:55 | Inpatient (IN) | payer OTHER ==
[2021-06-03] MEDS ORDERED: HYDROCODONE/APAP 7.5/325 MG TAB PO PRN (15:31)
[2021-06-03] MEDS ORDERED: TRAMADOL HCL 50 MG TAB PO PRN (15:31)
[2021-06-03] MEDS ORDERED: ONDANSETRON 4 MG/2 ML VIAL IV PRN (15:31)
--- NOTE | 2021-06-03 15:35 | P.HP ---
Certification for Inpatient Patient admitted to: Inpatient With expected LOS: >2 Midnights Patient will require the following post-hospital care: Other (LTAC) Practitioner: I am a practitioner with admitting privileges, knowledge of patient current condition, hospital course, and medical plan of care. Services: Services provided to patient in accordance with Admission requirements found in Title 42 Section 412.3 of the Code of Federal Regulations Patient History Date of Service: 06/03/21 Primary Care Provider: Dr. Banuelos; Infectious disease-Dr. Chang Reason for admission: Failed outpatient therapy History of Present Illness: 71-year-old female with history of diabetes mellitus type 2 insulin- dependent, anemia of chronic disease, severe peripheral vascular disease, hypertension, CAD, hyperlipidemia and history 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 Patient has been seen by infectious disease as an outpatient. Patient recently evaluated and treated with oral antibiotic therapy without any improvement. Patient was again seen by infectious disease today. Erythema to the lateral aspect of the foot noted. Multiple areas of ulceration noted. I was asked by the infectious disease doctor to admit the patient for treatment with IV antibiotic therapy. Infectious disease suspects recurrent osteomyelitis of the right foot. Patient will likely require long-term acute care facility placement. When saw the patient. Patient reports afebrile. Patient reports failed outpatient therapy. Lab pending at this time. MRI ordered. Allergies levofloxacin [From Levaquin] Allergy (Verified 09/10/19 00:48) Nausea/Vomiting Home medications list reviewed: Yes Home Medications: Furosemide [Lasix*] 40 mg PO DAILY 05/11/16 Metformin HCl [Metformin ER Osmotic] 1,000 mg PO BID 05/11/16 Metoprolol Tartrate [Lopressor*] 50 mg PO BID 05/11/16 Pravastatin [Pravachol*] 40 mg PO DAILY 05/11/16 Naproxen [Naprosyn] 500 mg PO BID 11/13/17 Pregabalin [Lyrica*] 75 mg PO BID 09/04/18 Clopidogrel Bisulfate [Plavix] 75 tab PO DAILY 01/19/19 Insulin Glargine/Lixisenatide [Soliqua 100 Unit-33 Mcg/ml Pen] 30 unit SQ DAILY 01/20/19 Rivaroxaban [Xarelto] 2.5 mg PO BID 09/25/20 Furosemide 40 mg PO BID 30 Days #60 tablet 09/28/20 Spironolactone 25 mg PO DAILY 90 Days #90 tablet 09/28/20 - Past Medical/Surgical History Diabetic: Yes -: CAD -: Diabetes mellitus type 2 insulin-dependent -: HTN -: Hyperlipidemia -: Diabetic neuropathy -: History of CABG x3 vessel -: CHF -: Peripheral vascular disease -: History of osteomyelitis of the right foot -: CABG X 3 -: cataract sx -: History of transmetatarsal amputation of the right fifth toe Psychosocial/ Personal History: Patient lives at home - Family History Father -: Stroke Sister -: Cancer Mother -: Heart disease - Social History Smoking Status: Never smoker Alcohol use: No CD- Drugs: No Caffeine use: Yes Place of Residence: Home Review of Systems General: As per HPI Eyes: Unremarkable ENT: Unremarkable Respiratory: Unremarkable Cardiovascular: Unremarkable Genitourinary: Unremarkable Musculoskeletal: Foot Pain, Pedal edema, As per HPI Integumentary: As per HPI Neurological: Unremarkable Lymphatics: Unremarkable Assessment and Plan - Plan Covid: Pending MRI foot: Pending Physical Exam: GENERAL: The patient is a well-developed, well-nourished, in no apparent distress. Alert and oriented x3. VITAL SIGNS: Reviewed HEENT: Head is normocephalic and atraumatic. Extraocular muscles are intact. Pupils are equal, round, and reactive to light and accommodation. Nares appeared normal. Mouth is well hydrated and without lesions. Mucous membranes are moist. NECK: Supple. No carotid bruits. No lymphadenopathy or thyromegaly. LUNGS: Clear to auscultation. No crackles or wheezes are heard. HEART: Regular rate and rhythm, no appreciable gallops, rubs, murmurs or extra heart sounds ABDOMEN: Soft, nontender, and nondistended. Positive bowel sounds. No hepatosplenomegaly was noted. EXTREMITIES: Erythema noted to the right lateral aspect of the foot. 2 areas of ulceration to the bottom of the foot and to the lateral aspect of the foot. Prior right transmetatarsal amputation of the right digit. NEUROLOGIC: The patient is oriented to person, place and time. Strength and sensation are grossly intact. Face is symmetric. SKIN: Normal color, turgor and temperature. No ulcerations or rashes noted. Impression: Suspect recurrent osteomyelitis of the right foot, failed outpatient therapy Diabetes mellitus type 2 insulin-dependent Hypertension Hyperlipidemia CAD with prior CABG Peripheral vascular disease Plan: Suspect recurrent osteomyelitis of the right foot, failed outpatient therapy: Patient admitted for further evaluation. Will obtain MRI to further evaluate. Suspect osteomyelitis. Will start IV cefepime and vancomycin. Infectious disease consulted. Case discussed in detail with infectious disease. Patient failed outpatient therapy. Patient will require long-term acute care facility placement for continued IV antibiotic therapy, aggressive wound care and hyperbarics. Social work consulted to help with this. Await further recommendations from infectious disease. Diabetes mellitus type 2 insulin-dependent: We will obtain A1c. Will start Accu-Cheks. Restart home medication. Hypertension: Restart home medication Hyperlipidemia: Restart home medication CAD with prior CABG: Restart home medication Peripheral vascular disease: Restart home medication Code Status: Full Code DVT prophylaxis: Lovenox Advanced Care Planning-30 minutes: Plan for transfer to long-term acute care facility placement for continued IV antibiotic therapy and aggressive wound care and hyperbarics. Discharge Plan: LTAC Plan to discharge in: Greater than 2 days - Advance Directives Does patient have a Living Will: No Does patient have a Durable POA for Healthcare: No - Code Status/Comfort Care Code Status Assessed: Yes (Patient full code) Time Spent Managing Pts Care (In Minutes): 55
[2021-06-03 16:02] VITALS: BMI 30.7
[2021-06-03] MEDS: INSULIN -REGULAR HUMAN 50 UNIT/0.5 ML ML SQ SCH ×2 (16:09→23:08)
[2021-06-03] MEDS: ENOXAPARIN 40 MG/0.4 ML SQ SCH (16:09)
[2021-06-03 16:12] LABS: Absolute Lymphocytes (CBC) 1.6 K/uL (0.7-4.9); Basophils % 0.9 % (0-1.3); Hematocrit 31.3 % (36.0-45.0); Lymphocytes % 13.6 % (15.3-44.8); MPV 8.3 fL (7.6-11.3); RBC Red Blood Cell Count 3.85 M/uL (3.86-4.86)
[2021-06-03 16:29] LABS: Albumin 3.1 g/dL (3.4-5.0); Bilirubin Total 0.4 mg/dL (0.2-1.0); Magnesium 2.3 mg/dL (1.8-2.4); Potassium 3.9 mmol/L (3.5-5.1); Protein, Total 8.1 g/dL (6.4-8.2)
[2021-06-03] MEDS: METOPROLOL TAR 25 MG TAB PO SCH (17:54)
[2021-06-03] MEDS ORDERED: POTASSIUM CL SA 10 MEQ TAB PO ONE (18:00)
[2021-06-03] MEDS ORDERED: VANCOMYCIN 2 GM in NA CHLORIDE 0.9% 500 ML IVPB ONE (21:00)
[2021-06-03] MEDS ORDERED: ATORVASTATIN 10 MG TAB PO SCH (21:00)
[2021-06-03] MEDS ORDERED: CEFEPIME 1 GM/VIAL IV SCH (21:00)
--- NOTE | 2021-06-03 21:27 | RAD REPORT ---
EXAM DESCRIPTION: MRI - Foot Right Wo Cont - 06/03/2021 9:07 pm CLINICAL HISTORY: osteomyelitis COMPARISON: Foot Right Wo Cont dated 09/10/2019; Foot Right Wo Cont dated 06/04/2019; Foot Right Wo C ont dated 12/13/2017; Foot Right Wo Cont dated 05/16/2016; Foot Right 3 View dated 05/03/2021 FINDINGS: Partial fourth and fifth toe amputations noted. There is subcutaneous edema. No abnormal T 2 signal is seen within the fifth toe to suggest underlying osteomyelitis. There is abnormal signal i n the talus and navicular bone which is likely related to underlying degenerative changes. IMPRESSION: No radiographic evidence of osteomyelitis.
[2021-06-03] MEDS: CEFEPIME/SWI 1gm 10 ML IVP SCH (22:13)
[2021-06-03] MEDS: ACETAMINOPHEN 500 MG TAB PO PRN (22:14)
[2021-06-04 02:07] LABS: Urine Appearance CLEAR (Clear); Urine Bilirubin NEGATIVE (Negative); Urine Blood NEGATIVE (Negative); Urine Color YELLOW (Yellow); Urine Glucose NEGATIVE (Negative); Urine Protein TRACE (Negative); Urine Urobilinogen 0.2 mg/dL (0.2-1.0)
[2021-06-04 02:12] LABS: Urine Microscopic Reflex ORDER UMIC
[2021-06-04 02:47] LABS: Urine Bacteria 20-50 /HPF (<20); Urine Mucus 1+ /HPF (NONE SEEN)
[2021-06-04] MEDS: METOPROLOL TAR 25 MG TAB PO SCH (05:46)
--- NOTE | 2021-06-04 06:03 | P.PN ---
Subjective Date of Service: 06/04/21 Primary Care Provider: Dr. Banuelos; Infectious disease-Dr. Chang Chief Complaint: Failed outpatient therapy Subjective: Improving, Doing well Physical Examination - Vital Signs Temperature: 97.4 F Blood Pressure: 127/94 Pulse: 74 Respirations: 18 Pulse Ox (%): 97 Assessment & Plan Discharge Plan: LTAC Plan to discharge in: Greater than 2 days Physician Review Additional Text: Covid: negative MRI foot: COMPARISON: Foot Right Wo Cont dated 09/10/2019; Foot Right Wo Cont dated 06/04/2019; Foot Right Wo Cont dated 12/13/2017; Foot Right Wo Cont dated 05/16/2016; Foot Right 3 View dated 05/03/2021 FINDINGS: Partial fourth and fifth toe amputations noted. There is subcutaneous edema. No abnormal T2 signal is seen within the fifth toe to suggest underlying osteomyelitis. There is abnormal signal in the talus and navicular bone which is likely related to underlying degenerative changes. IMPRESSION: No radiographic evidence of osteomyelitis. Physical Exam: GENERAL: The patient is a well-developed, well-nourished, in no apparent distress. Alert and oriented x3. VITAL SIGNS: Reviewed HEENT: Head is normocephalic and atraumatic. Extraocular muscles are intact. Pupils are equal, round, and reactive to light and accommodation. Nares appeared normal. Mouth is well hydrated and without lesions. Mucous membranes are moist. NECK: Supple. No carotid bruits. No lymphadenopathy or thyromegaly. LUNGS: Clear to auscultation. No crackles or wheezes are heard. HEART: Regular rate and rhythm, no appreciable gallops, rubs, murmurs or extra heart sounds ABDOMEN: Soft, nontender, and nondistended. Positive bowel sounds. No hepatosplenomegaly was noted. EXTREMITIES: Erythema noted to the right lateral aspect of the foot. 2 areas of ulceration to the bottom of the foot and to the lateral aspect of the foot. Prior right transmetatarsal amputation of the right digit. NEUROLOGIC: The patient is oriented to person, place and time. Strength and sensation are grossly intact. Face is symmetric. SKIN: Normal color, turgor and temperature. No ulcerations or rashes noted. Impression: Cellulitis of the right foot, failed outpatient therapy with history of osteomyelitis Diabetes mellitus type 2 insulin-dependent Acute on chronic renal disease Hypertension Hyperlipidemia CAD with prior CABG Peripheral vascular disease Plan: Cellulitis of the right foot, failed outpatient therapy with history of osteomyelitis: Patient remains on IV cefepime and vancomycin. Overall improved. MRI shows no evidence of osteomyelitis. Spoke at length with infectious disease. Infectious disease recommends transfer to long-term acute facility to continue IV antibiotic therapy for at least 2 to 3 weeks with aggressive wound care and hyperbarics. Will discuss with high school social science teacher. Case discussed with patient. Diabetes mellitus type 2 insulin-dependent: We will check A1c. Continue Accu- Cheks and sliding scale. Need to obtain home medication. Acute on chronic renal disease: Overall stable. Will consult nephrology for further recommendation. Hypertension: Stable on metoprolol Hyperlipidemia: Stable on statin medication CAD with prior CABG: Stable on Plavix Peripheral vascular disease: Stable on Plavix Code Status: Full Code DVT prophylaxis: Lovenox Advanced Care Planning-30 minutes: We will pursue long-term acute care facility placement for continued IV antibiotic therapy, aggressive wound care and hyperbarics. Time Spent Managing Pts Care (In Minutes): 55
[2021-06-04] MEDS: INSULIN -REGULAR HUMAN 50 UNIT/0.5 ML ML SQ SCH ×4 (07:30→20:26)
[2021-06-04] MEDS: CLOPIDOGREL 75 MG TABLET PO SCH (10:06)
[2021-06-04] MEDS: ENOXAPARIN 40 MG/0.4 ML SQ SCH (10:06)
[2021-06-04] MEDS: CEFEPIME/SWI 1gm 10 ML IVP SCH ×2 (10:07→20:26)
--- NOTE | 2021-06-04 12:04 | P.CNS ---
Date of Consult: 06/04/21 Primary Care Provider: Dr. Banuelos; Infectious disease-Dr. Chang Chief Complaint: Failed outpatient therapy History of Present Illness: Patient is a 62 year old female with a past medical history of diabetes, anemia of chronic disease, and severe peripheral vascular disease, hypertension, CAD, hyperlipidemia, and history of osteomyelitis of her right foot status post transmetatarsal amputation of the 5th digit. Patient is well-known to Dr. Lieberman practice and sees him outpatient weekly at [facility]. Patient was recently treated for osteomyelitis and cellulitis of her right foot and was on doxycycline however her infection continued to worsen and as such Dr. Lieberman thought it would be best for her to come to the emergency department. MRI showed no evidence of osteomyelitis. Patient currently on vancomycin and cefepime, will need PICC line and 3-4 weeks of IV antibiotics. Patient currently denies nausea, vomiting, diarrhea, shortness breath, chest pain. Allergies levofloxacin [From Levaquin] Allergy (Verified 09/10/19 00:48) Nausea/Vomiting Home Medications: Furosemide [Lasix*] 40 mg PO DAILY 05/11/16 Metformin HCl [Metformin ER Osmotic] 1,000 mg PO BID 05/11/16 Metoprolol Tartrate [Lopressor*] 50 mg PO BID 05/11/16 Pravastatin [Pravachol*] 40 mg PO DAILY 05/11/16 Naproxen [Naprosyn] 500 mg PO BID 11/13/17 Pregabalin [Lyrica*] 75 mg PO BID 09/04/18 Clopidogrel Bisulfate [Plavix] 75 tab PO DAILY 01/19/19 Insulin Glargine/Lixisenatide [Soliqua 100 Unit-33 Mcg/ml Pen] 30 unit SQ DAILY 01/20/19 Rivaroxaban [Xarelto] 2.5 mg PO BID 09/25/20 Furosemide 40 mg PO BID 30 Days #60 tablet 09/28/20 Spironolactone 25 mg PO DAILY 90 Days #90 tablet 09/28/20 - Past Medical/Surgical History Diabetic: Yes -: CAD -: Diabetes mellitus type 2 insulin-dependent -: HTN -: Hyperlipidemia -: Diabetic neuropathy -: History of CABG x3 vessel -: CHF -: Peripheral vascular disease -: History of osteomyelitis of the right foot -: CABG X 3 -: cataract sx -: History of transmetatarsal amputation of the right fifth toe Psychosocial/ Personal History: Patient lives at home - Family History Father Medical History: Stroke Sister Medical History: Cancer Mother Medical History: Heart disease - Social History Alcohol use: No CD- Drugs: No Caffeine use: Yes Place of Residence: Home Review of Systems 10-point ROS is otherwise unremarkable Physical Examination Temp Pulse Resp BP Pulse Ox 97.4 F 74 18 127/94 H 97 06/04/21 10:51 06/04/21 10:51 06/04/21 10:51 06/04/21 10:51 06/04/21 10:51 General: Alert, In no apparent distress HEENT: Atraumatic, Normocephalic Neck: Supple, 2+ carotid pulse no bruit Respiratory: Clear to auscultation bilaterally, Normal air movement Cardiovascular: No edema, Regular rate/rhythm Gastrointestinal: Normal bowel sounds, Soft and benign Musculoskeletal: No clubbing, No contractures, No erythema Integumentary: Diabetic ulcer (To lateral and plantar aspect of right foot. Martha wound tissues swollen and erythematous) Conclusions/Impression: Antibiotics: Vancomycin: Start: 06/03 Stop:-- Cefepime Start: 06/03 Stop:-- Assessment/plan Right foot diabetic foot ulcer with cellulitis Patient has history of right foot osteomyelitis, MRI performed on 06/03 showed no signs of osteomyelitis. However patient has recurring unhealing diabetic foot ulcers. Patient failed outpatient oral antibiotic therapy. Continue vancomycin and cefepime for 3-4 weeks. Patient will need PICC line placed. Wound care includes Medihoney applied to wound and cover with foam. Diabetes Continue SSI Anemia of chronic disease, protein caloric malnutrition moderate Both factors that contribute to decrease wound healing. Recommend supplemental Ensure protein drinks. Continue to monitor H&H. Leukocytosis with left shift Continue to monitor WBC trend in fever curve. Continue on broad-spectrum IV antibiotic therapy. Medical management per primary team Continue monitor CBC and BMP Continue monitor signs infection Plan of care discussed with Dr. Lieberman Thank you for consultation.
[2021-06-04 13:06] LABS: Basophils % 0.5 % (0-1.3); Hematocrit 31.1 % (36.0-45.0); MPV 8.6 fL (7.6-11.3)
[2021-06-04 14:07] LABS: Albumin 2.8 g/dL (3.4-5.0); Bilirubin Total 0.3 mg/dL (0.2-1.0); Potassium 4.8 mmol/L (3.5-5.1); Protein, Total 7.9 g/dL (6.4-8.2)
[2021-06-04] MEDS: METOPROLOL TAR 50 MG TAB PO SCH (16:55)
[2021-06-04] MEDS: PANTOPRAZOLE 40MG TABLET PO SCH (17:07)
[2021-06-04] MEDS ORDERED: MAGNES/ALUMIN/SIMET 30ML UCUP PO ONE (20:23)
[2021-06-04] MEDS ORDERED: LIDOCAINE VISCOUS 2% SOLN 15 ML UDC PO ONE (20:23)
[2021-06-04] MEDS: ATORVASTATIN 10 MG TAB PO SCH (20:24)
[2021-06-04] MEDS: PREGABALIN 75 MG CAP PO SCH (20:24)
[2021-06-04] MEDS: ACETAMINOPHEN 500 MG TAB PO PRN (20:25)
--- NOTE | 2021-06-04 21:38 | P.CNS ---
Date of Consult: 06/04/21 Reason for Consult: CKD Requesting Physician: Abdi Tang Primary Care Provider: Dr. Banuelos; Infectious disease-Dr. Chang Chief Complaint: Failed outpatient therapy History of Present Illness: 71-year-old female with history of diabetes mellitus type 2 insulin- dependent, anemia of chronic disease, severe peripheral vascular disease, hypertension, CAD, hyperlipidemia and history 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 Patient has been seen by infectious disease as an outpatient. Patient recently evaluated and treated with oral antibiotic therapy without any improvement. Patient was again seen by infectious disease today. Erythema to the lateral aspect of the foot noted. Multiple areas of ulceration noted. Allergies levofloxacin [From Levaquin] Allergy (Verified 09/10/19 00:48) Nausea/Vomiting Home medications list reviewed: Yes Home Medications: Furosemide [Lasix*] 40 mg PO BID 05/11/16 Metformin HCl [Metformin ER Osmotic] 500 mg PO BID 05/11/16 Metoprolol Tartrate [Lopressor*] 50 mg PO BID 05/11/16 Pravastatin [Pravachol*] 40 mg PO DAILY 05/11/16 Pregabalin [Lyrica*] 75 mg PO BID 09/04/18 Clopidogrel Bisulfate [Plavix] 75 tab PO DAILY 01/19/19 Spironolactone 25 mg PO DAILY 90 Days #90 tablet 09/28/20 - Past Medical/Surgical History Diabetic: Yes -: CAD -: Diabetes mellitus type 2 insulin-dependent -: HTN -: Hyperlipidemia -: Diabetic neuropathy -: History of CABG x3 vessel -: CHF -: Peripheral vascular disease -: History of osteomyelitis of the right foot -: CABG X 3 -: cataract sx -: History of transmetatarsal amputation of the right fifth toe Psychosocial/ Personal History: Patient lives at home - Family History Father Medical History: Stroke Sister Medical History: Cancer Mother Medical History: Heart disease - Social History Alcohol use: No CD- Drugs: No Caffeine use: Yes Place of Residence: Home Review of Systems 10-point ROS is otherwise unremarkable General: Weakness Musculoskeletal: Foot Pain Physical Examination Temp Pulse Resp BP Pulse Ox 98 F 73 18 156/68 H 98 06/04/21 16:00 06/04/21 16:55 06/04/21 16:00 06/04/21 16:55 06/04/21 16:00 General: In no apparent distress, Oriented x3, Cooperative HEENT: Atraumatic Neck: Supple Respiratory: Clear to auscultation bilaterally Cardiovascular: Regular rate/rhythm, Edema Gastrointestinal: Soft and benign, Non-distended Musculoskeletal: No clubbing, No contractures Integumentary: No rashes, No cyanosis, Erythema, Diabetic ulcer Neurological: Normal speech Blood work reviewed in the chart. Imagings Data: EXAM DESCRIPTION: MRI - Foot Right Wo Cont - 06/03/2021 9:07 pm CLINICAL HISTORY: osteomyelitis COMPARISON: Foot Right Wo Cont dated 09/10/2019; Foot Right Wo Cont dated 06/04/2019; Foot Right Wo Cont dated 12/13/2017; Foot Right Wo Cont dated 05/16/2016; Foot Right 3 View dated 05/03/2021 FINDINGS: Partial fourth and fifth toe amputations noted. There is subcutaneous edema. No abnormal T2 signal is seen within the fifth toe to suggest underlying osteomyelitis. There is abnormal signal in the talus and navicular bone which is likely related to underlying degenerative changes. IMPRESSION: No radiographic evidence of osteomyelitis. Conclusions/Impression: CKD III -No NSAIDs Hypocalcemia -Start Vitamin D HTN with CKD -Continue Metoprolol Diastolic CHF -Hold diuretic therapy at this time -Low sodium diet DM II with hyperglycemia, polyneuropathy, CKD. DM II with right foot ulcer -RISS Moderate malnutrition -Encourage nutrition including protein supplementation Anemia in chronic illness -Monitor H&H PAD/ CAD Right foot cellulitis -Continue Cefepime and Vancomycin; monitor vanco level Thank you kindly for the consultation.
[2021-06-05 05:21] LABS: Absolute Lymphocytes (CBC) 1.3 K/uL (0.7-4.9); Basophils % 1.1 % (0-1.3); Hematocrit 27.4 % (36.0-45.0); Lymphocytes % 16.6 % (15.3-44.8); MPV 8.1 fL (7.6-11.3); RBC Red Blood Cell Count 3.39 M/uL (3.86-4.86)
[2021-06-05 05:56] LABS: Albumin 2.4 g/dL (3.4-5.0); Bilirubin Total 0.3 mg/dL (0.2-1.0); Magnesium 2.3 mg/dL (1.8-2.4); Phosphorus 2.8 mg/dL (2.5-4.9); Potassium 4.4 mmol/L (3.5-5.1); Protein, Total 6.8 g/dL (6.4-8.2); Uric Acid 6.7 mg/dL (2.6-6.0)
[2021-06-05] MEDS: METOPROLOL TAR 50 MG TAB PO SCH ×2 (06:00→17:10)
[2021-06-05] MEDS: INSULIN -REGULAR HUMAN 50 UNIT/0.5 ML ML SQ SCH ×4 (07:30→21:42)
[2021-06-05] MEDS ORDERED: HOME MED 1 EA UNK (Pravastatin [Pravachol*] 40 MG/TAB Tab) PO SCH (09:00)
[2021-06-05] MEDS: PANTOPRAZOLE 40MG TABLET PO SCH (09:08)
[2021-06-05] MEDS: CLOPIDOGREL 75 MG TABLET PO SCH (09:08)
[2021-06-05] MEDS: PREGABALIN 75 MG CAP PO SCH ×2 (09:08→20:47)
[2021-06-05] MEDS: ENOXAPARIN 30 MG/0.3 ML SQ SCH (09:09)
[2021-06-05] MEDS: VITAMIN D 5,000 UNIT CAP PO SCH (09:09)
[2021-06-05] MEDS: CEFEPIME/SWI 1gm 10 ML IVP SCH ×2 (09:09→20:47)
[2021-06-05] MEDS: CALCITROL 0.25 MCG CAP PO SCH (09:09)
[2021-06-05] MEDS: VANCOMYCIN 1.5 GM in NA CHLORIDE 0.9% 500 ML IVPB SCH (09:10)
[2021-06-05] MEDS: CALCIUM CARBONATE CHEW 500MG TAB PO PRN ×2 (13:29→20:51)
--- NOTE | 2021-06-05 14:14 | PN ---
Subjective: Currently, she is lying in bed. She looks comfortable and she has no chest pain. No ab dominal pain. No fever, no chills. She is able to go home and she does not want to go to LTAC unles s it is absolutely necessary. Objective: Vital Signs: Blood pressure is 168/72, respiratory rate 16, pulse 72, temperature 97.1, saturating 98% on room air. She is alert and oriented x3. Does not look in any distress. HEENT: Atraumatic, normocephalic. PERRLA. Oral mucosa is moist. Neck: Supple. No JVD. No carotid bruits. Chest: Clear to auscultation. Good air entry. Heart: Regular rate and rhythm. S1, S2 normal. No gallop or murmur. Abdomen: Soft, nontender, no masses. No hepatosplenomegaly. Positive bowel sounds. Extremities: No clubbing or cyanosis or edema. Erythema above the ulceration to the bottom of the f oot, lateral aspect of the foot, status post transmetatarsal amputation of the right digit. Laboratory Data: Today, showed CBC within normal except for hemoglobin 9. Chemistry within normal l imits except for glucose in the range of 139 to 223, BUN 39. LFTs within normal. Hemoglobin A1c is 8.7. Assessment And Plan: 1.Cellulitis of the right foot, status post failure of oral antibiotic as outpatient with history of osteomyelitis. The patient is currently on IV cefepime and vancomycin. MRI showed no evidence of o steomyelitis advised the patient need a long-term facility in 3-4 weeks, but the patient p referred to go home, so we will try to place a PICC line and arrange for Home Health to help the concepción ent with IV antibiotic at home. 2.Diabetes mellitus, not well controlled. Hemoglobin A1c elevated at 8.1. Continue Accu-Chek and s liding scale. Will resume her home medication with metformin 1000 mg as before. 3.Renal insufficiency, much better. Creatinine is back to normal. Nephrology has seen the patient yesterday. Dialysis on hold at this time in Nephrology. Low-sodium diet was suggested. 4.Hypertension: Continue on home medication. 5.History of coronary artery disease, prior coronary artery bypass graft. The patient is currently on Plavix, continue. 6.Deep vein thrombosis prophylaxis. The patient is ambulatory. 7.Discharge plan: Will probably be home after placement of PICC line with Home Health for antibioti cs for 3-[address] Lieberman's recommendation. DASHAWN Voice ID: [id number] Report ID: [id number]
--- NOTE | 2021-06-05 14:42 | PN ---
Subjective: The patient is here for cellulitis of her right foot and abscess development. The patie nt has pickard having challenges with diabetic foot ulcer for a long period of time with osteomyelitis. Objective: Vital Signs: Temperature 97, pulse 69, respirations 18, blood pressure 161/71. Lungs: Basal crackles. Heart: S1, S2. Regular. Abdomen: Soft, nontender. Bowel sounds present. Extremities: No edema. Laboratory Data: WBC 7.7, hemoglobin 9, platelets are 320. Chemistry shows sodium 142, potassium 4. 4, chloride 113, bicarb 26, BUN 39, creatinine 1.1, glucose is 149. Albumin level is 2.4. Blood cul tures, no growth. Assessment And Plan: Cellulitis and abscess of the right foot. The patient prefers to continue IV a ntibiotic at home. Recommend continue current antibiotic with cefepime and vancomycin. Recommend a PICC line placement for 3 weeks antibiotic. [facility] up [facility] on . MRI is nega tive for osteomyelitis. We will follow the patient as needed. NF/MODL Voice ID: [id number] Report ID: [id number]
[2021-06-05] MEDS: METFORMIN ER 500 MG TAB PO SCH (20:48)
[2021-06-05] MEDS: ATORVASTATIN 10 MG TAB PO SCH (20:48)
[2021-06-05] MEDS ORDERED: METOPROLOL TAR 50 MG TAB PO SCH (21:00)
[2021-06-06] MEDS: METOPROLOL TAR 50 MG TAB PO SCH ×2 (05:22→17:09)
[2021-06-06 06:00] LABS: Absolute Lymphocytes (CBC) 1.1 K/uL (0.7-4.9); Basophils % 0.9 % (0-1.3); Hematocrit 28.6 % (36.0-45.0); Lymphocytes % 13.6 % (15.3-44.8); MPV 7.9 fL (7.6-11.3); RBC Red Blood Cell Count 3.52 M/uL (3.86-4.86)
[2021-06-06 06:13] LABS: Albumin 2.6 g/dL (3.4-5.0); Bilirubin Total 0.4 mg/dL (0.2-1.0); Magnesium 2.3 mg/dL (1.8-2.4); Potassium 4.5 mmol/L (3.5-5.1); Protein, Total 7.3 g/dL (6.4-8.2)
[2021-06-06] MEDS: INSULIN -REGULAR HUMAN 50 UNIT/0.5 ML ML SQ SCH ×4 (07:30→21:04)
[2021-06-06] MEDS: CEFEPIME/SWI 1gm 10 ML IVP SCH ×2 (09:00→21:05)
[2021-06-06] MEDS ORDERED: CLOPIDOGREL 75 MG TABLET PO SCH (09:00)
[2021-06-06] MEDS: ENOXAPARIN 30 MG/0.3 ML SQ SCH (09:08)
[2021-06-06] MEDS: CLOPIDOGREL 75 MG TABLET PO SCH (09:09)
[2021-06-06] MEDS: VITAMIN D 5,000 UNIT CAP PO SCH (09:09)
[2021-06-06] MEDS: CALCITROL 0.25 MCG CAP PO SCH (09:09)
[2021-06-06] MEDS: PREGABALIN 75 MG CAP PO SCH ×2 (09:09→21:05)
[2021-06-06] MEDS: PANTOPRAZOLE 40MG TABLET PO SCH (09:09)
[2021-06-06] MEDS: METFORMIN ER 500 MG TAB PO SCH ×2 (09:09→21:05)
[2021-06-06] MEDS: CALCIUM CARBONATE CHEW 500MG TAB PO PRN (09:10)
[2021-06-06] MEDS: HYDRALAZINE HCL 20 MG/ML VIAL IV PRN (11:23)
--- NOTE | 2021-06-06 11:28 | PN ---
Subjective: Currently, the patient lying in bed. She looks comfortable. She has no chest pain. No abdominal pain. No fever. No chills. She wants to go home except that the PICC line was not place d yet. She denies any complaint. She does not have any pain in her foot. Objective: Vital Signs: Currently, blood pressure is at 119/57, respiratory rate 16, pulse 64, temp erature 97.3, saturating 98% on room air. General: She is fully alert and oriented x3. Does not look in any distress. Very pleasant lady. HEENT: Atraumatic, normocephalic. PERRLA. Oral mucosa is moist. Neck: Supple. No JVD. No carotid bruits. Chest: Clear to auscultation. Good air entry. Heart: Regular rate and rhythm. S1, S2 normal. No gallop or murmur. Abdomen: Soft, nontender. No masses. No hepatosplenomegaly. Positive bowel sounds. Extremities: No clubbing, cyanosis, or edema. No calf tenderness. I did not examine the wound toda y. Laboratory Data: Today showed CBC within normal except for hemoglobin 9.4. Chemistry within normal except for GFR of 56, BUN of 29. Assessment And Plan: 1.Cellulitis of the right foot, status post failure to oral antibiotic course as outpatient with his tory of osteomyelitis. The patient is currently on IV cefepime and vancomycin. MRI did not show any evidence of osteomyelitis. ID recommended to continue long-term IV antibiotic up to 3-4 weeks and t he patient did not want to be discharged to a long-term facility, so we will await placement of PICC line and then she will be discharged with home health with IV antibiotic and she will need to follow up with [facility] on . Total time of antibiotic is [address] Gandhi's notes. 2.Diabetes mellitus. Today, glucose in the range of 114-282. Continue insulin sliding scale as wel l as metformin which was resumed yesterday. The patient's oral medicine needs to be adjusted by her primary care physician on outpatient basis. Since hemoglobin A1c was 8.1, so her glucose was not wel l controlled as outpatient. 3.Renal insufficiency. Continued to improve at 0.98 today. BUN is slightly elevated. Encourage or al intake of fluids. 4.Hypertension, well controlled. 5.History of coronary artery disease, status post coronary artery bypass graft. The patient is curr ently on Plavix, statin with atorvastatin, metoprolol. 6.Deep vein thrombosis prophylaxis. The patient is ambulatory. She is on Lovenox at 30 mg daily. I will switch to 40 since her kidney function is back to normal. 7.Discharge plan: Home with home health and IV antibiotic for 3 weeks after PICC line placement hop efully tomorrow. TRACEY/CHRIS Voice ID: [id number] Report ID: [id number]
[2021-06-06] MEDS: MEDIHONEY 44 ML TOPICAL TUBE TOP SCH (15:43)
[2021-06-06] MEDS: VANCOMYCIN 1.5 GM in NA CHLORIDE 0.9% 500 ML IVPB SCH (21:05)
[2021-06-06] MEDS: ATORVASTATIN 10 MG TAB PO SCH (21:06)
[2021-06-07] MEDS: METOPROLOL TAR 50 MG TAB PO SCH ×2 (05:18→17:00)
[2021-06-07 06:05] LABS: Absolute Lymphocytes (CBC) 1.6 K/uL (0.7-4.9); Basophils % 0.9 % (0-1.3); Hematocrit 27.6 % (36.0-45.0); Lymphocytes % 21.5 % (15.3-44.8); MPV 8.2 fL (7.6-11.3); RBC Red Blood Cell Count 3.33 M/uL (3.86-4.86)
[2021-06-07 06:20] LABS: Albumin 2.4 g/dL (3.4-5.0); Bilirubin Total 0.4 mg/dL (0.2-1.0); Magnesium 2.3 mg/dL (1.8-2.4); Potassium 4.9 mmol/L (3.5-5.1); Protein, Total 6.9 g/dL (6.4-8.2)
[2021-06-07] MEDS: INSULIN -REGULAR HUMAN 50 UNIT/0.5 ML ML SQ SCH ×4 (07:30→21:06)
[2021-06-07] MEDS: CLOPIDOGREL 75 MG TABLET PO SCH (07:45)
[2021-06-07] MEDS: PREGABALIN 75 MG CAP PO SCH ×2 (07:45→21:04)
[2021-06-07] MEDS: PANTOPRAZOLE 40MG TABLET PO SCH (07:45)
[2021-06-07] MEDS: CALCITROL 0.25 MCG CAP PO SCH (07:45)
[2021-06-07] MEDS: VITAMIN D 5,000 UNIT CAP PO SCH (07:46)
[2021-06-07] MEDS: CEFEPIME/SWI 1gm 10 ML IVP SCH ×2 (07:46→21:04)
[2021-06-07] MEDS: METFORMIN ER 500 MG TAB PO SCH ×2 (07:46→21:04)
[2021-06-07] MEDS: ENOXAPARIN 40 MG/0.4 ML SQ SCH (07:46)
[2021-06-07] MEDS: MEDIHONEY 44 ML TOPICAL TUBE TOP SCH (07:47)
--- NOTE | 2021-06-07 13:07 | P.PN ---
Subjective Date of Service: 06/07/21 Primary Care Provider: Dr. Banuelos; Infectious disease-Dr. Chang Chief Complaint: Failed outpatient therapy Patient seen examined at bedside, doing well no acute complaints. Review of Systems 10-point ROS is otherwise unremarkable Physical Examination - Vital Signs Temperature: 97.3 F Blood Pressure: 153/67 Pulse: 74 Respirations: 18 Pulse Ox (%): 97 Assessment And Plan - Plan Physical Exam: General: Alert, In no apparent distress HEENT: Atraumatic, Normocephalic Neck: Supple, 2+ carotid pulse no bruit Respiratory: Clear to auscultation bilaterally, Normal air movement Cardiovascular: No edema, Regular rate/rhythm Gastrointestinal: Normal bowel sounds, Soft and benign Musculoskeletal: No clubbing, No contractures, No erythema Integumentary: Diabetic ulcer (To lateral and plantar aspect of right foot. Martha wound tissues swollen and erythematous) Conclusions/Impression: Antibiotics: Vancomycin: Start: 06/03 Stop:-- Cefepime Start: 06/03 Stop:-- Assessment/plan Right foot diabetic foot ulcer with cellulitis Patient has history of right foot osteomyelitis, MRI performed on 06/03 showed no signs of osteomyelitis. However patient has recurring unhealing diabetic foot ulcers. Patient failed outpatient oral antibiotic therapy. Continue vancomycin and cefepime for 3-4 weeks. Patient will need PICC line placed. Wound care includes Medihoney applied to wound and cover with foam. Diabetes Continue SSI Anemia of chronic disease, protein caloric malnutrition moderate Both factors that contribute to decrease wound healing. Recommend supplemental Ensure protein drinks. Continue to monitor H&H. Leukocytosis with left shift Continue to monitor WBC trend in fever curve. Continue on broad-spectrum IV antibiotic therapy. Medical management per primary team Continue monitor CBC and BMP Continue monitor signs infection Plan of care discussed with Dr. Lieberman Thank you for consultation. Physician Review Additional Text: Covid: negative MRI foot: COMPARISON: Foot Right Wo Cont dated 09/10/2019; Foot Right Wo Cont dated 06/04/2019; Foot Right Wo Cont dated 12/13/2017; Foot Right Wo Cont dated 05/16/2016; Foot Right 3 View dated 05/03/2021 FINDINGS: Partial fourth and fifth toe amputations noted. There is subcutaneous edema. No abnormal T2 signal is seen within the fifth toe to suggest underlying osteomyelitis. There is abnormal signal in the talus and navicular bone which is likely related to underlying degenerative changes. IMPRESSION: No radiographic evidence of osteomyelitis. Physical Exam: GENERAL: The patient is a well-developed, well-nourished, in no apparent distr ess. Alert and oriented x3. VITAL SIGNS: Reviewed HEENT: Head is normocephalic and atraumatic. Extraocular muscles are intact. Pupils are equal, round, and reactive to light and accommodation. Nares appeared normal. Mouth is well hydrated and without lesions. Mucous membranes are moist. NECK: Supple. No carotid bruits. No lymphadenopathy or thyromegaly. LUNGS: Clear to auscultation. No crackles or wheezes are heard. HEART: Regular rate and rhythm, no appreciable gallops, rubs, murmurs or extra heart sounds ABDOMEN: Soft, nontender, and nondistended. Positive bowel sounds. No hepatosplenomegaly was noted. EXTREMITIES: Erythema noted to the right lateral aspect of the foot. 2 areas of ulceration to the bottom of the foot and to the lateral aspect of the foot. Prior right transmetatarsal amputation of the right digit. NEUROLOGIC: The patient is oriented to person, place and time. Strength and sensation are grossly intact. Face is symmetric. SKIN: Normal color, turgor and temperature. No ulcerations or rashes noted. Impression: Cellulitis of the right foot, failed outpatient therapy with history of osteomyelitis Diabetes mellitus type 2 insulin-dependent Acute on chronic renal disease Hypertension Hyperlipidemia CAD with prior CABG Peripheral vascular disease Plan: Cellulitis of the right foot, failed outpatient therapy with history of osteomyelitis: Patient remains on IV cefepime and vancomycin. Overall improved. MRI shows no evidence of osteomyelitis. Spoke at length with infectious disease. Infectious disease recommends transfer to long-term acute facility to continue IV antibiotic therapy for at least 2 to 3 weeks with aggressive wound care and hyperbarics. Will discuss with home health care social worker. Case discussed with patient. Diabetes mellitus type 2 insulin-dependent: We will check A1c. Continue Accu- Cheks and sliding scale. Need to obtain home medication. Acute on chronic renal disease: Overall stable. Will consult nephrology for further recommendation. Hypertension: Stable on metoprolol Hyperlipidemia: Stable on statin medication CAD with prior CABG: Stable on Plavix Peripheral vascular disease: Stable on Plavix Code Status: Full Code DVT prophylaxis: Lovenox Advanced Care Planning-30 minutes: We will pursue long-term acute care facility placement for continued IV antibiotic therapy, aggressive wound care and hyperbarics.
--- NOTE | 2021-06-07 20:16 | P.PN ---
Date of Service: 06/07/21 Vital Signs Temp Pulse Resp BP Pulse Ox 97.2 F 75 18 154/67 H 96 06/07/21 16:00 06/07/21 17:00 06/07/21 16:00 06/07/21 17:00 06/07/21 16:00 Medications Acetaminophen (Acetaminophen 500 Mg Tab) 500 mg PO Q4HP PRN PRN Reason: TEMP > 101' F Last Admin: 06/04/21 20:25 Dose: 500 mg Documented by: Hydrocodone Bitart/Acetaminophen (Hydrocodone/Apap 7.5/325 Mg Tab) 1 tab PO Q6H PRN PRN Reason: Pain scale 5-7 (Moderate) Atorvastatin Calcium (Atorvastatin 10 Mg Tab) 10 mg PO BEDTIME [facility] Last Admin: 06/06/21 21:06 Dose: 10 mg Documented by: Calcitriol (Calcitrol 0.25 Mcg Cap) 0.5 mcg PO DAILY [facility] Last Admin: 06/07/21 07:45 Dose: 0.5 mcg Documented by: Calcium Carbonate/Glycine (Calcium Carbonate Chew 500mg Tab) 500 mg PO QID PRN PRN Reason: INDIGESTION Last Admin: 06/06/21 09:10 Dose: 500 mg Documented by: Cholecalciferol (Vitamin D 5,000 Unit Cap) 5,000 unit PO DAILY [facility] Last Admin: 06/07/21 07:46 Dose: 5,000 unit Documented by: Clopidogrel Bisulfate (Clopidogrel 75 Mg Tablet) 75 mg PO DAILY [facility] Last Admin: 06/07/21 07:45 Dose: 75 mg Documented by: Emollient Gel (Medihoney 44 Ml Topical Tube) 1 appl TOP DAILY [facility] Last Admin: 06/07/21 07:47 Dose: 1 appl Documented by: Enoxaparin Sodium (Enoxaparin 40 Mg/0.4 Ml) 40 mg SQ DAILY [facility] Last Admin: 06/07/21 07:46 Dose: 40 mg Documented by: Hydralazine HCl (Hydralazine Hcl 20 Mg/Ml Vial) 10 mg IV Q4HP PRN PRN Reason: FOR SBP>160 MMHG OR DBP>100 MM Last Admin: 06/06/21 11:23 Dose: 10 mg Documented by: Vancomycin HCl 1.5 gm/ Sodium (Chloride) 500 mls @ 250 mls/hr IVPB Q36H [facility]; Protocol Last Admin: 06/06/21 21:05 Dose: 500 mls Documented by: Cefepime HCl (Maxipime 1 Gm/10 Ml Ivp) 10 mls @ 200 mls/hr IVP Q12HR [facility] Last Admin: 06/07/21 07:46 Dose: 10 mls Documented by: Insulin Human Regular (Insulin -Regular Human 50 Unit/0.5 Ml Ml) 0 unit SQ ACHS [facility]; Protocol Last Admin: 06/07/21 16:55 Dose: 2 unit Documented by: Metformin HCl (Metformin Er 500 Mg Tab) 500 mg PO BID [facility] Last Admin: 06/07/21 07:46 Dose: 500 mg Documented by: Metoprolol Tartrate (Metoprolol Tar 50 Mg Tab) 50 mg PO BID 6AM 6PM [facility] Last Admin: 06/07/21 17:00 Dose: 50 mg Documented by: Ondansetron HCl (Ondansetron 4 Mg/2 Ml Vial) 4 mg IV Q6HP PRN PRN Reason: NAUSEA / VOMITING Pantoprazole Sodium (Pantoprazole 40mg Tablet) 40 mg PO ACB [facility]; Protocol Last Admin: 06/07/21 07:45 Dose: 40 mg Documented by: Pregabalin (Pregabalin 75 Mg Cap) 75 mg PO BID [facility] Last Admin: 06/07/21 07:45 Dose: 75 mg Documented by: Sodium Chloride (Flush Normal Saline 10 Ml) 10 ml IV BID [facility] Last Admin: 06/07/21 07:46 Dose: 10 ml Documented by: Tramadol HCl (Tramadol Hcl 50 Mg Tab) 50 mg PO TID PRN PRN Reason: Pain scale 2-4 (Mild) Assessment/ Plan: Nephrology Progress Note Doing well. Waiting for her PICC line. No chest pain or dyspnea No acute events overnight Vitals, medications blood work and imaging reviewed in the chart General: In no apparent distress, Oriented x3, Cooperative HEENT: Atraumatic Neck: Supple Respiratory: Clear to auscultation bilaterally Cardiovascular: Regular rate/rhythm, Edema Gastrointestinal: Soft and benign, Non-distended Musculoskeletal: No clubbing, No contractures Integumentary: No rashes, No cyanosis, Erythema, Diabetic ulcer Neurological: Normal speech Blood work reviewed in the chart. Imagings Data: EXAM DESCRIPTION: MRI - Foot Right Wo Cont - 06/03/2021 9:07 pm CLINICAL HISTORY: osteomyelitis COMPARISON: Foot Right Wo Cont dated 09/10/2019; Foot Right Wo Cont dated 06/04/2019; Foot Right Wo Cont dated 12/13/2017; Foot Right Wo Cont dated 05/16/2016; Foot Right 3 View dated 05/03/2021 FINDINGS: Partial fourth and fifth toe amputations noted. There is subcutaneous edema. No abnormal T2 signal is seen within the fifth toe to suggest underlying osteomyelitis. There is abnormal signal in the talus and navicular bone which is likely related to underlying degenerative changes. IMPRESSION: No radiographic evidence of osteomyelitis. Conclusions/Impression: CKD III -No NSAIDs Hypocalcemia -Continue Vitamin D HTN with CKD -Continue Metoprolol Diastolic CHF -Hold diuretic therapy at this time -Low sodium diet DM II with hyperglycemia, polyneuropathy, CKD. DM II with right foot ulcer -RISS -Continue Metformin Moderate malnutrition -Encourage nutrition including protein supplementation Anemia in chronic illness -Monitor H&H PAD/ CAD Right foot cellulitis -Continue Cefepime and Vancomycin; monitor vanco level
[2021-06-07] MEDS: ATORVASTATIN 10 MG TAB PO SCH (21:05)
[2021-06-08] MEDS: METOPROLOL TAR 50 MG TAB PO SCH ×2 (05:51→17:50)
[2021-06-08] MEDS: INSULIN -REGULAR HUMAN 50 UNIT/0.5 ML ML SQ SCH ×4 (07:30→20:21)
[2021-06-08] MEDS: PREGABALIN 75 MG CAP PO SCH ×2 (09:00→20:21)
[2021-06-08] MEDS: PANTOPRAZOLE 40MG TABLET PO SCH (09:11)
[2021-06-08] MEDS: VITAMIN D 5,000 UNIT CAP PO SCH (09:11)
[2021-06-08] MEDS: METFORMIN ER 500 MG TAB PO SCH ×2 (09:11→20:21)
[2021-06-08] MEDS: ENOXAPARIN 40 MG/0.4 ML SQ SCH (09:11)
[2021-06-08] MEDS: CLOPIDOGREL 75 MG TABLET PO SCH (09:11)
[2021-06-08] MEDS: CALCITROL 0.25 MCG CAP PO SCH (09:11)
[2021-06-08] MEDS: CEFEPIME/SWI 1gm 10 ML IVP SCH ×2 (09:13→17:50)
[2021-06-08] MEDS: MEDIHONEY 44 ML TOPICAL TUBE TOP SCH (09:14)
[2021-06-08 09:28] VITALS: O2SAT 98
--- NOTE | 2021-06-08 11:35 | P.PN ---
Subjective Date of Service: 06/08/21 Primary Care Provider: Dr. Banuelos; Infectious disease-Dr. Chang Chief Complaint: Failed outpatient therapy Patient seen examined at bedside, PICC line pending. Once line is placed patient can be discharged. Review of Systems 10-point ROS is otherwise unremarkable Physical Examination - Vital Signs Temperature: 97.5 F Blood Pressure: 147/66 Pulse: 66 Respirations: 15 Pulse Ox (%): 98 Assessment And Plan - Plan Physical Exam: General: Alert, In no apparent distress HEENT: Atraumatic, Normocephalic Neck: Supple, 2+ carotid pulse no bruit Respiratory: Clear to auscultation bilaterally, Normal air movement Cardiovascular: No edema, Regular rate/rhythm Gastrointestinal: Normal bowel sounds, Soft and benign Musculoskeletal: No clubbing, No contractures, No erythema Integumentary: Diabetic ulcer (To lateral and plantar aspect of right foot. Martha wound tissues swollen and erythematous) Conclusions/Impression: Antibiotics: Vancomycin: Start: 06/03 Stop:-- Cefepime Start: 06/03 Stop:-- Assessment/plan Right foot diabetic foot ulcer with cellulitis Patient has history of right foot osteomyelitis, MRI performed on 06/03 showed no signs of osteomyelitis. However patient has recurring unhealing diabetic foot ulcers. Patient failed outpatient oral antibiotic therapy. Continue vancomycin and cefepime for 3-4 weeks. Patient will need PICC line placed. Wound care includes Medihoney applied to wound and cover with foam. Diabetes Continue SSI Anemia of chronic disease, protein caloric malnutrition moderate Both factors that contribute to decrease wound healing. Recommend supplemental Ensure protein drinks. Continue to monitor H&H. Leukocytosis with left shift Continue to monitor WBC trend in fever curve. Continue on broad-spectrum IV antibiotic therapy. Medical management per primary team Continue monitor CBC and BMP Continue monitor signs infection Plan of care discussed with Dr. Lieberman Thank you for consultation.
[2021-06-08] MEDS: HYDRALAZINE HCL 20 MG/ML VIAL IV PRN (12:26)
--- NOTE | 2021-06-08 13:26 | P.PN ---
Subjective Date of Service: 06/07/21 Patient is doing better. Continue with antibiotics. Awaiting PICC line placement. Patient is wanting to go home as soon as possible. Continue antibiotics with home health. Review of Systems 10-point ROS is otherwise unremarkable Physical Examination - Vital Signs Temperature: 97.5 F Blood Pressure: 147/66 Pulse: 66 Respirations: 15 Pulse Ox (%): 98 - Physical Exam General: Alert, In no apparent distress, Oriented x3 Respiratory: Clear to auscultation bilaterally, Normal air movement Cardiovascular: Regular rate/rhythm, Normal S1 S2 Gastrointestinal: Normal bowel sounds, Soft and benign, Non-distended, No tenderness Musculoskeletal: Swelling, Tenderness Neurological: Sensation intact, Cranial nerves 3-12 intact, Normal affect - Studies Medications List Reviewed: Yes Assessment & Plan - Problems (Diagnosis) (1) CKD (chronic kidney disease) stage 3, GFR 30-59 ml/min Current Visit: No Status: Acute (2) Cellulitis Current Visit: No Status: Acute Qualifiers: Site of cellulitis: extremity Site of cellulitis of extremity: lower extremity Laterality: right Qualified Code(s): L03.115 - Cellulitis of right lower limb (3) Diabetic foot ulcer Current Visit: No Status: Acute Qualifiers: Diabetic foot ulcer location: toe Diabetes mellitus type: type 2 Laterality: right Non-pressure ulcer stage: with necrosis of muscle Qualified Code(s): E11.621 - Type 2 diabetes mellitus with foot ulcer; L97.513 - Non-pressure chronic ulcer of other part of right foot with necrosis of muscle (4) CAD (coronary artery disease) Onset Date: 05/26/16 Current Visit: No Status: Chronic Qualifiers: (5) HTN (hypertension) Onset Date: 05/26/16 Current Visit: No Status: Chronic Qualifiers: Hypertension type: essential hypertension (6) Hyperlipidemia Onset Date: 09/05/18 Current Visit: No Status: Chronic Qualifiers: Hyperlipidemia type: mixed hyperlipidemia Qualified Code(s): E78.2 - Mixed hyperlipidemia (7) Type 2 diabetes mellitus with foot ulcer Current Visit: No Status: Chronic Qualifiers: 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 Continue with IV antibiotic 2. Continue with local wound care 3. Outpatient wound care follow-up 4. Awaiting PICC line placement 5. Monitor CBC 6. Strict blood sugar monitoring 7. GI and DVT prophylaxis - Advance Directives Does patient have a Living Will: No Does patient have a Durable POA for Healthcare: No
--- NOTE | 2021-06-08 14:22 | RAD REPORT ---
EXAM DESCRIPTION: RAD - Chest Single View - 06/08/2021 2:16 pm CLINICAL HISTORY: PICC line placement COMPARISON: August 2019 FINDINGS: Portable chest was obtained following placement of a right upper extremity PICC line. The catheter tip is in the right atrium. Retracting the PICC line [address] the tip within the distal SVC.
--- NOTE | 2021-06-08 16:19 | RAD REPORT ---
EXAM DESCRIPTION: RAD - Chest Single View - 06/08/2021 4:06 pm CLINICAL HISTORY: PICC line placement COMPARISON: Portable chest same date FINDINGS: Portable chest was obtained following placement of a right upper extremity PICC line. The catheter tip is in the mid SVC, good positioning.
[2021-06-08] MEDS: ATORVASTATIN 10 MG TAB PO SCH (20:21)
[2021-06-08 20:28] VITALS: BP 128/58; TEMP 97.3
[2021-06-09] MEDS ORDERED: VANCOMYCIN 1.5 GM in NA CHLORIDE 0.9% 500 ML IVPB SCH (21:00)
--- NOTE | 2021-06-09 21:25 | P.PN ---
Date of Service: 06/08/21 Vital Signs Temp Pulse Resp BP Pulse Ox 97.3 F 79 16 128/58 L 95 06/08/21 20:00 06/08/21 20:00 06/08/21 20:00 06/08/21 20:00 06/08/21 20:00 Assessment/ Plan: Nephrology Progress Note Doing well. PICC placed No chest pain or dyspnea No acute events overnight Vitals, medications blood work and imaging reviewed in the chart General: In no apparent distress, Oriented x3, Cooperative HEENT: Atraumatic Neck: Supple Respiratory: Clear to auscultation bilaterally Cardiovascular: Regular rate/rhythm, Edema Gastrointestinal: Soft and benign, Non-distended Musculoskeletal: No clubbing, No contractures Integumentary: No rashes, No cyanosis, Erythema, Diabetic ulcer Neurological: Normal speech Blood work reviewed in the chart. Imagings Data: EXAM DESCRIPTION: MRI - Foot Right Wo Cont - 06/03/2021 9:07 pm CLINICAL HISTORY: osteomyelitis COMPARISON: Foot Right Wo Cont dated 09/10/2019; Foot Right Wo Cont dated 06/04/2019; Foot Right Wo Cont dated 12/13/2017; Foot Right Wo Cont dated 05/16/2016; Foot Right 3 View dated 05/03/2021 FINDINGS: Partial fourth and fifth toe amputations noted. There is subcutaneous edema. No abnormal T2 signal is seen within the fifth toe to suggest underlying osteomyelitis. There is abnormal signal in the talus and navicular bone which is likely related to underlying degenerative changes. IMPRESSION: No radiographic evidence of osteomyelitis. Conclusions/Impression: CKD III -No NSAIDs Hypocalcemia -Continue Vitamin D HTN with CKD -Continue Metoprolol Diastolic CHF -Hold diuretic therapy at this time -Low sodium diet DM II with hyperglycemia, polyneuropathy, CKD. DM II with right foot ulcer -RISS -Continue Metformin Moderate malnutrition -Encourage nutrition including protein supplementation Anemia in chronic illness -Monitor H&H PAD/ CAD Right foot cellulitis -Continue Cefepime and Vancomycin; monitor vanco level
--- NOTE | 2021-06-18 13:08 | P.DS ---
Discharge Date: 06/08/21 Primary Care Provider: Dr. Banuelos; Infectious disease-Dr. Chang Disposition: DC HOME/HOME HEALTH CARE Discharge Condition: GOOD Reason for Admission: Failed outpatient therapy - Problems (1) CKD (chronic kidney disease) stage 3, GFR 30-59 ml/min Status: Acute (2) Cellulitis Status: Acute Qualifiers: Site of cellulitis: extremity Site of cellulitis of extremity: lower extremity Laterality: right Qualified Code(s): L03.115 - Cellulitis of right lower limb (3) Diabetic foot ulcer Status: Acute Qualifiers: Diabetic foot ulcer location: toe Diabetes mellitus type: type 2 Laterality: right Non-pressure ulcer stage: with necrosis of muscle Qualified Code(s): E11.621 - Type 2 diabetes mellitus with foot ulcer; L97.513 - Non-pressure chronic ulcer of other part of right foot with necrosis of muscle (4) CAD (coronary artery disease) Onset Date: 05/26/16 Status: Chronic Qualifiers: (5) HTN (hypertension) Onset Date: 05/26/16 Status: Chronic Qualifiers: Hypertension type: essential hypertension (6) Hyperlipidemia Onset Date: 09/05/18 Status: Chronic Qualifiers: Hyperlipidemia type: mixed hyperlipidemia Qualified Code(s): E78.2 - Mixed hyperlipidemia (7) Type 2 diabetes mellitus with foot ulcer Status: Chronic Qualifiers: Diabetes mellitus usp insulin use: with usp use Brief History of Present Illness: Patient is a 71-year-old female with history of diabetes mellitus type 2 insulin-dependent, anemia of chronic disease, severe peripheral vascular disease, hypertension, CAD, hyperlipidemia and history 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 Patient has been seen by infectious disease as an outpatient. Patient recently evaluated and treated with oral antibiotic therapy without any improvement. Patient was again seen by infectious disease today. Erythema to the lateral aspect of the foot noted. Multiple areas of ulceration noted. I was asked by the infectious disease doctor to admit the patient for treatment with IV antibiotic therapy. Infectious disease suspects recurrent osteomyelitis of the right foot. Patient will likely require long-term acute care facility placement. When saw the patient. Patient reports afebrile. Patient reports failed outpatient therapy. Lab pending at this time. MRI ordered. Hospital Course: Patient is clinically doing well. Patient was given IV antibiotic therapy. Patient's symptoms were improving. Patient will be discharged with wound care. At this time, patient is stable for discharge. Vital Signs/Physical Exam: Temp Pulse Resp BP Pulse Ox 97.3 F 79 16 128/58 L 95 06/08/21 20:00 06/08/21 20:00 06/08/21 20:00 06/08/21 20:00 06/08/21 20:00 General: Alert, In no apparent distress, Oriented x3 Laboratory Data at Discharge: WBC 7.40 K/uL (4.3-10.9) 06/07/21 05:29 Hgb 8.8 g/dL (12.0-15.0) L 06/07/21 05:29 Hct 27.6 % (36.0-45.0) L 06/07/21 05:29 Plt Count 290 K/uL (152-406) 06/07/21 05:29 Sodium 142 mmol/L (136-145) 06/07/21 05:29 Potassium 4.9 mmol/L (3.5-5.1) 06/07/21 05:29 BUN 27 mg/dL (7-18) H 06/07/21 05:29 Creatinine 1.01 mg/dL (0.55-1.3) 06/07/21 05:29 Glucose 145 mg/dL (74-106) H 06/07/21 05:29 Uric Acid 6.7 mg/dL (2.6-6.0) H 06/05/21 05:03 Phosphorus 2.8 mg/dL (2.5-4.9) 06/05/21 05:03 Magnesium 2.3 mg/dL (1.8-2.4) 06/07/21 05:29 Total Bilirubin 0.4 mg/dL (0.2-1.0) 06/07/21 05:29 AST 16 U/L (15-37) 06/07/21 05:29 ALT 13 U/L (12-78) 06/07/21 05:29 Alkaline Phosphatase 105 U/L (45-117) 06/07/21 05:29 Home Medications: Furosemide [Lasix*] 40 mg PO BID 05/11/16 Metformin HCl [Metformin ER Osmotic] 500 mg PO BID 05/11/16 Metoprolol Tartrate [Lopressor*] 50 mg PO BID 05/11/16 Pravastatin [Pravachol*] 40 mg PO DAILY 05/11/16 Pregabalin [Lyrica*] 75 mg PO BID 09/04/18 Clopidogrel Bisulfate [Plavix] 75 tab PO DAILY 01/19/19 Spironolactone 25 mg PO DAILY 90 Days #90 tablet 09/28/20 Calcium Carbonate [Tums Regular*] 500 mg PO QID PRN #120 tab 06/08/21 Cefepime [Maxipime 1 gm/100 ml Ivpb] 1 gm IV Q12HR 21 Days bag 06/08/21 Cholecalciferol (Vitamin D3) [Vitamin D 5,000 IU Cap*] 5,000 unit PO DAILY #30 cap 06/08/21 Clopidogrel Bisulfate [Plavix*] 75 mg PO DAILY #30 tablet 06/08/21 Hydrocodone 7.5/APAP 325 [[place] 7.5/325 mg*] 1 tab PO Q6H PRN #30 tab 06/08/21 Medihoney [Medihoney Woundcare Gel*] 1 appl TOP DAILY #1 tube 06/08/21 Metoprolol Tartrate [Lopressor*] 50 mg PO BID 6AM 6PM #60 tab 06/08/21 Vancomycin HCl in Dextrose 5 % [Vancomycin 1.5 Gram/250 ml-D5w] 1.5 gm IV Q48H 21 Days plast..bag 06/08/21 New Medications: Metoprolol Tartrate [Lopressor*] 50 mg PO BID 6AM 6PM #60 tab Cefepime [Maxipime 1 gm/100 ml Ivpb] 1 gm IV Q12HR 21 Days bag Medihoney [Medihoney Woundcare Gel*] 1 appl TOP DAILY #1 tube Hydrocodone 7.5/APAP 325 [[place] 7.5/325 mg*] 1 tab PO Q6H PRN #30 tab PRN Reason: Pain Scale 5-7 (Moderate) Clopidogrel Bisulfate [Plavix*] 75 mg PO DAILY #30 tablet Calcium Carbonate [Tums Regular*] 500 mg PO QID PRN #120 tab PRN Reason: Indigestion Vancomycin HCl in Dextrose 5 % [Vancomycin 1.5 Gram/250 ml-D5w] 1.5 gm IV Q48H 21 Days plast..bag Cholecalciferol (Vitamin D3) [Vitamin D 5,000 IU Cap*] 5,000 unit PO DAILY #30 cap Physician Discharge Instructions: -OK TO DC IV AND DC HOME -FOLLOW-UP WITH PCP IN 1-2 WEEKS -FOLLOW-UP WITH wound care IN 1-2 WEEKS -PLEASE MAKE SURE ALL DIAGNOSTIC STUDIES ARE AVAILABLE AND HAVE BEEN REVIEWED WITH PATIENT PRIOR TO DISCHARGE -RETURN TO THE ER IF symptoms worsens -CALL DR. MUKHERJEE AT [phone] IF ANY QUESTIONS REGARDING HOSPITAL STAY -PLEASE CALL THE FLOOR AT [phone] IF ANY MEDICATION OR NURSING QUESTIONS Diet: ADA (Heart healthy diet) Activity: Fall precautions Followup: Hiram Lieberman MD [ACTIVE - CAN ADMIT] - Pamela Banuelos FNP BC [ALLIED HEALTH PROFESSIONAL] - 1-2 Weeks Time spent managing pt's care (in minutes): 35
== END 2021-06-08 21:00 | disposition home health service (06) | DRG 638 ==
LOC: ER 13:55 → 2ND 14:30
PROVIDERS: ADMIT Family Medicine; ATTEND Family Medicine
PROC: 02HV33Z Insertion of Infusion Device into Superior Vena Cava, Percutaneous Approach (ICD-10-PCS; principal; 2021-06-08)
DX: E11.621 Type 2 diabetes mellitus with foot ulcer (principal); L03.115 Cellulitis of right lower limb; I13.0 Hypertensive heart and chronic kidney disease with heart failure and stage 1 through stage 4 chronic kidney disease, or unspecified chronic kidney disease; I50.32 Chronic diastolic (congestive) heart failure; E44.0 Moderate protein-calorie malnutrition; L97.513 Non-pressure chronic ulcer of other part of right foot with necrosis of muscle; N17.9 Acute kidney failure, unspecified; I25.10 Atherosclerotic heart disease of native coronary artery without angina pectoris; I73.9 Peripheral vascular disease, unspecified; E78.5 Hyperlipidemia, unspecified; E11.22 Type 2 diabetes mellitus with diabetic chronic kidney disease; E11.65 Type 2 diabetes mellitus with hyperglycemia; N18.30 Chronic kidney disease, stage 3 unspecified; E83.51 Hypocalcemia; D63.8 Anemia in other chronic diseases classified elsewhere; E11.42 Type 2 diabetes mellitus with diabetic polyneuropathy; Z68.30 Body mass index [BMI] 30.0-30.9, adult; Z95.1 Presence of aortocoronary bypass graft; Z20.822 Contact with and (suspected) exposure to COVID-19; Z79.4 Long term (current) use of insulin; Z89.421 Acquired absence of other right toe(s)
CPT/HCPCS: 36415; 36569; 71045; 80053; 80202; 81003; 81015; 82947; 83036; 83735; 84100; 84145; 84550; 85025; 87040; 87086; 87088; J0360; J0692; J1650; J3370; J7040; U0003

== ENCOUNTER 2021-06-21 11:07 | Inpatient (IN) | payer OTHER ==
[2021-06-21 12:02] LABS: Absolute Lymphocytes (CBC) 0.9 K/uL (0.7-4.9); Basophils % 1.1 % (0-1.3); Lymphocytes % 12.5 % (15.3-44.8); MPV 8.7 fL (7.6-11.3); RBC Red Blood Cell Count 3.01 M/uL (3.86-4.86)
[2021-06-21 12:17] LABS: Albumin 2.8 g/dL (3.4-5.0); Bilirubin Direct 0.1 mg/dL (0-0.2); Bilirubin Total 0.3 mg/dL (0.2-1.0); Potassium 4.9 mmol/L (3.5-5.1); Protein, Total 7.6 g/dL (6.4-8.2)
--- NOTE | 2021-06-21 12:38 | EDPHYS ---
Physician Documentation [facility] Name: Mildred Kelly Age: 71 yrs Sex: Female : 1950 Arrival Date: 06/21/2021 Time: 11:11 Bed 15 Private MD: ED Physician Corby De Santiago HPI: 06/21 11:37 This 71 yrs old Female presents to ER via Wheelchair with complaints of jr8 Abnormal Labs. 11:37 This is a 71-year-old female patient was brought to the emergency room for further jr8 evaluation for abnormal labs. Her infectious disease doctor who is taking care of her for osteomyelitis sent her in because they had seen a spike in her creatinine. Wanted us to recheck labs to ensure that she does not have acute renal failure. Patient currently asymptomatic at this time.. The patient has not experienced similar symptoms in the past. The patient has been recently seen by a physician:. Historical: - Allergies: 11:20 Levaquin; hb - Immunization history:: Adult Immunizations up to date, Client reports receiving the 2nd dose of the Covid vaccine. - Social history:: Smoking status: Patient denies any tobacco usage or history of. ROS: 11:37 Constitutional: Negative for fever, chills, and weight loss, Cardiovascular: Negative jr8 for chest pain, palpitations, and edema, Respiratory: Negative for shortness of breath, cough, wheezing, and pleuritic chest pain, Abdomen/GI: Negative for abdominal pain, nausea, vomiting, diarrhea, and constipation, Back: Negative for injury and pain, Skin: Negative for injury, rash, and discoloration, Neuro: Negative for headache, weakness, numbness, tingling, and seizure. 11:37 All other systems are negative. Exam: 11:37 Constitutional: This is a well developed, well nourished patient who is awake, alert, jr8 and in no acute distress. Cardiovascular: Regular rate and rhythm with a normal S1 and S2. No gallops, murmurs, or rubs. Normal PMI, no JVD. No pulse deficits. Respiratory: Lungs have equal breath sounds bilaterally, clear to auscultation and percussion. No rales, rhonchi or wheezes noted. No increased work of breathing, no retractions or nasal flaring. Abdomen/GI: Soft, non-tender, with normal bowel sounds. No distension or tympany. No guarding or rebound. No evidence of tenderness throughout. Back: No spinal tenderness. No costovertebral tenderness. Full range of motion. Skin: Warm, dry with normal turgor. Normal color with no rashes, no lesions, and no evidence of cellulitis. MS/ Extremity: Pulses equal, no cyanosis. Neurovascular intact. Full, normal range of motion. Neuro: Awake and alert, GCS 15, oriented to person, place, time, and situation. Cranial nerves II-XII grossly intact. Motor strength 5/5 in all extremities. Sensory grossly intact. Vital Signs: 11:17 BP 119 / 72; Pulse 81; Resp 16; Temp 97.8; Pulse Ox 100% on R/A; hb 11:52 BP 119 / 72; Pulse 81; Resp 16; Temp 97.8; Pulse Ox 100% on R/A; kh1 13:00 BP 107 / 54; Pulse 92 MON; Resp 20 S; Temp 97.4(TE); Pulse Ox 100% on R/A; kh1 13:00 BP 158 / 86; Pulse 84 MON; Resp 18 S; Pulse Ox 100% on R/A; kh1 MDM: 11:27 Patient medically screened. [facility] 12:35 Data reviewed: vital signs, nurses notes, lab test result(s), and as a result, I will [facility] admit patient. Data interpreted: Pulse oximetry: on room air is 100 %. Interpretation: normal. Counseling: I had a detailed discussion with the patient and/or guardian regarding: the historical points, exam findings, and any diagnostic results supporting the discharge/admit diagnosis, lab results, the need for further work-up and treatment in the hospital. 06/21 11:27 Order name: Basic Metabolic Panel; Complete Time: 12:8 06/21 11:27 Order name: CBC with Diff; Complete Time: 12:8 06/21 11:27 Order name: Hepatic Function; Complete Time: :8 06/21 14:22 Order name: SARS-COV-2 RT PCR; Complete Time: 15:08 EDMS 06/21 11:27 Order name: IV Saline Lock; Complete Time: 11:51 8 06/21 11:27 Order name: Labs collected and sent; Complete Time: 11 jr8 06/21 11:27 Order name: Urine Dipstick-Ancillary (obtain specimen) jr Administered Medications: 12:57 Drug: NS 0.9% 1000 ml Route: IV; Rate: 100 ml/hr; Site: [facility]; pending sale to [facility] Disposition: 18:26 Co-signature as Attending Physician, Corby COLLINS I agree with the assessment and rn plan of care. Attestation: The patient's history, exam findings, diagnostics, and a summary of any interventions or procedures was reviewed in detail with Hugo LOU. Disposition Summary: 06/21/21 12:38 Hospitalization Ordered Hospitalization Status: Inpatient Admission jr Provider: Benjie De Santiago jr Location: Telemetry/MedSurg (Inpatient) [facility] Condition: Stable jr Problem: new jr8 Symptoms: are unchanged jr8 Bed/Room Type: Standard [facility] Room Assignment: 216(06/21/21 16:32) ss Diagnosis - Acute kidney failure, unspecified [facility] Forms: - Medication Reconciliation Form jr8 - SBAR form [facility] Signatures: Dispatcher [employer] EDMS Corby De Santiago MD MD rn Smirch, Shelby, RN RN ss Roszak, Josh, PA PA [facility] Rosalinda Reyes RN RN hb Harris, Kecia pending sale to [facility] Corrections: (The following items were deleted from the chart) 11:53 11:53 PMHx: Hyperlipidemia; [place] [id number] 11:53 11:53 PMHx: Hypertension; [place] [address] 11:53 11:53 PMHx: Diabetes - NIDDM; [place] [address] 11:53 11:53 PMHx: neuropathy; [place] [address] 11:53 11:53 PMHx: CHF; [place] [address] 11:53 11:53 PMHx: triple bypass; [place] [address] 13:26 12:45 CORONAVIRUS+MR.LAB.BRZ ordered. EDMS EDMS 16:32 12:38 jr8 ss
--- NOTE | 2021-06-21 12:38 | ER ---
Nurse's Notes [facility] Name: Mildred Kelly Age: 71 yrs Sex: Female : 1950 Arrival Date: 06/21/2021 Time: 11:11 Bed 15 Private MD: Diagnosis: Acute kidney failure, unspecified Presentation: 06/21 11:17 Chief complaint: Patient states: "[facility] nurse was at my house, I am getting antibiotics hb for my foot, she had a hard time getting my blood, I don't know why I am here, she told me Dr. Lieberman said to go to the ER." PICC line noted to CHARLIE. Coronavirus screen: At this time, the client does not indicate any symptoms associated with coronavirus-19. Ebola Screen: No symptoms or risks identified at this time. Initial Sepsis Screen: Does the patient meet any 2 criteria? No. Patient's initial sepsis screen is negative. Does the patient have a suspected source of infection? No. Patient's initial sepsis screen is negative. Risk Assessment: Do you want to hurt yourself or someone else? Patient reports no desire to harm self or others. Onset of symptoms was June 21, 2021. 11:17 Method Of Arrival: Wheelchair hb 11:17 Acuity: JANE 3 hb Historical: - Allergies: 11:20 Levaquin; hb - Immunization history:: Adult Immunizations up to date, Client reports receiving the 2nd dose of the Covid vaccine. - Social history:: Smoking status: Patient denies any tobacco usage or history of. Screenin:52 Abuse screen: Denies threats or abuse. Nutritional screening: No deficits noted. On no kh1 prescribed diet Difficulty chewing/swallowing? No Tuberculosis screening: No symptoms or risk factors identified. Never had TB. Possible symptoms: None Risk factors: None. Fall Risk None identified. No fall in past 12 months (0 pts). Secondary diagnosis (15 points) impaired mobility, IV access (20 points). Ambulatory Aid- None/Bed Rest/Nurse Assist (0 pts). Gait- Weak (10 pts.). Assessment: 11:51 General: Appears in no apparent distress. comfortable, Behavior is calm, cooperative, kh1 appropriate for age. Pain: Denies pain. 13:00 Reassessment: Patient appears in no apparent distress at this time. No changes from kh1 previously documented assessment. Patient and/or family updated on plan of care and expected duration. Pain level reassessed. 14:27 Reassessment: Patient appears in no apparent distress at this time. No changes from [facility] previously documented assessment. Patient and/or family updated on plan of care and expected duration. Pain level reassessed. Patient is alert, oriented x 3, equal unlabored respirations, skin warm/dry/pink. 15:46 Reassessment: Patient appears in no apparent distress at this time. No changes from [facility] previously documented assessment. Patient and/or family updated on plan of care and expected duration. Pain level reassessed. Patient is alert, oriented x 3, equal unlabored respirations, skin warm/dry/pink. 16:40 Reassessment: attempted to ca;ll report to 2nd floor was told nurse is passing meds [facility] will call me back. 17:29 Reassessment: report called to 2nd floor spoke with Karson no acute distress noted. [facility] Vital Signs: 11:17 BP 119 / 72; Pulse 81; Resp 16; Temp 97.8; Pulse Ox 100% on R/A; hb 11:52 BP 119 / 72; Pulse 81; Resp 16; Temp 97.8; Pulse Ox 100% on R/A; kh1 13:00 BP 107 / 54; Pulse 92 MON; Resp 20 S; Temp 97.4(TE); Pulse Ox 100% on R/A; kh1 13:00 BP 158 / 86; Pulse 84 MON; Resp 18 S; Pulse Ox 100% on R/A; [facility] Vitals: 11:52 Cardiac Rhythm Assessment Regular Sinus rhythm. [facility] ED Course: 11:11 Patient arrived in ED. mr 11:20 Triage completed. hb 11:20 Arm band placed on. hb 11:27 Hugo Pino PA is PHCP. jr8 11:27 Corby De Santiago MD is Attending Physician. jr8 11:47 Amira Toledo is Primary Nurse. kh1 11:51 Basic Metabolic Panel Sent. kh1 11:51 CBC with Diff Sent. kh1 11:51 Hepatic Function Sent. kh1 11:53 Patient has correct armband on for positive identification. Bed in low position. Call [facility] light in reach. Side rails up X 1. Adult w/ patient. Pulse ox on. NIBP on. 12:36 Benjie De Santiago MD is Hospitalizing Provider. jr8 Administered Medications: 12:57 Drug: NS 0.9% 1000 ml Route: IV; Rate: 100 ml/hr; Site: [facility]; [facility] Outcome: 12:38 Decision to Hospitalize by Provider. jr8 17:45 Patient left the ED. Signatures: Rubia Patten mr Winnie Barger RN RN Hugo Pino PA PA [facility] Rosalinda Reyes RN RN Amira Toledo [facility] Corrections: (The following items were deleted from the chart) 11:53 11:53 PMHx: Hyperlipidemia; [place] [id number] 11:53 11:53 PMHx: Hypertension; [place] [id number] 11:53 11:53 PMHx: Diabetes - NIDDM; [place] [id number] 11:53 11:53 PMHx: neuropathy; [place] [id number] 11:53 11:53 PMHx: CHF; [place] [id number] 11:53 11:53 PMHx: triple bypass; [place] [id number] 13:26 12:49 CORONAVIRUS+MR.LAB.[place] drawn and sent. [facility] EDMS
[2021-06-21] MEDS ORDERED: NA CHLORIDE 0.9% 1,000 ML ONE (13:16)
[2021-06-21] MEDS ORDERED: LABETALOL 20 MG/4ML SYRINGE IV PRN (17:20)
[2021-06-21] MEDS ORDERED: ACETAMINOPHEN 500 MG TAB PO PRN (17:34)
[2021-06-21] MEDS ORDERED: HYDROCODONE/APAP 7.5/325 MG TAB PO PRN (17:41)
--- NOTE | 2021-06-21 17:43 | P.HP ---
Certification for Inpatient Patient admitted to: Inpatient With expected LOS: >2 Midnights Patient will require the following post-hospital care: None Practitioner: I am a practitioner with admitting privileges, knowledge of patient current condition, hospital course, and medical plan of care. Services: Services provided to patient in accordance with Admission requirements found in Title 42 Section 412.3 of the Code of Federal Regulations <Blanca Draper - Last Filed: 06/21/21 18:37> Patient History Date of Service: 06/21/21 Reason for admission: CODI History of Present Illness: Patient is a 71-year-old female with a past medical history significant for hyperlipidemia, DM 2 with neuropathy, hypertension, CABG who presents with complaint of abnormal labs. Patient was sent to the ER by her infectious disease MD due to an increase in creatinine. Patient reported that she is been treated with antibiotic for osteomyelitis. She was placed on 2 antibiotics for osteomyelitis of the right foot and that she has completed about 2 weeks of antibiotic treatment. Patient denies any other signs and symptoms. Symptoms are aggravated or relieved by nothing. Patient was brought to the hospital for medical evaluation. - Past Medical/Surgical History Has patient received pneumonia vaccine in the past: Yes Diabetic: Yes -: CAD -: Diabetes mellitus type 2 insulin-dependent -: HTN -: Hyperlipidemia -: Diabetic neuropathy -: History of CABG x3 vessel -: CHF -: Peripheral vascular disease -: History of osteomyelitis of the right foot -: CABG X 3 -: cataract sx -: History of transmetatarsal amputation of the right fifth toe Psychosocial/ Personal History: Patient lives at home - Family History Father -: Stroke Sister -: Cancer Mother -: Heart disease - Social History Smoking Status: Never smoker Alcohol use: No CD- Drugs: No Caffeine use: Yes <Blanca Draper - Last Filed: 06/21/21 18:37> Date of Service: 06/21/21 <Nathanael Gates - Last Filed: 06/26/21 10:33> Allergies levofloxacin [From Levaquin] Allergy (Verified 09/10/19 00:48) Nausea/Vomiting Home Medications: Furosemide [Lasix*] 40 mg PO BID 05/11/16 Metformin HCl [Metformin ER Osmotic] 500 mg PO BID 05/11/16 Metoprolol Tartrate [Lopressor*] 50 mg PO BID 05/11/16 Pravastatin [Pravachol*] 40 mg PO DAILY 05/11/16 Pregabalin [Lyrica*] 75 mg PO BID 09/04/18 Spironolactone 25 mg PO DAILY 90 Days #90 tablet 09/28/20 Calcium Carbonate [Tums Regular*] 500 mg PO QID PRN #120 tab 06/08/21 Cefepime [Maxipime 1 gm/100 ml Ivpb] 1 gm IV Q12HR 21 Days bag 06/08/21 Cholecalciferol (Vitamin D3) [Vitamin D 5,000 IU Cap*] 5,000 unit PO DAILY #30 cap 06/08/21 Clopidogrel Bisulfate [Plavix*] 75 mg PO DAILY #30 tablet 06/08/21 Hydrocodone 7.5/APAP 325 [[place] 7.5/325 mg*] 1 tab PO Q6H PRN #30 tab 06/08/21 Medihoney [Medihoney Woundcare Gel*] 1 appl TOP DAILY #1 tube 06/08/21 Metoprolol Tartrate [Lopressor*] 50 mg PO BID 6AM 6PM #60 tab 06/08/21 Vancomycin HCl in Dextrose 5 % [Vancomycin 1.5 Gram/250 ml-D5w] 1.5 gm IV Q48H 21 Days plast..bag 06/08/21 Review of Systems General: Unremarkable Eyes: Unremarkable ENT: Unremarkable Respiratory: Unremarkable Cardiovascular: Unremarkable Gastrointestinal: Unremarkable Genitourinary: Unremarkable Musculoskeletal: Unremarkable Integumentary: Other (Right foot ulcers ) Neurological: Unremarkable Lymphatics: Unremarkable <Blanca Draper E - Last Filed: 06/21/21 18:37> Physical Examination - Physical Exam General: Alert, In no apparent distress, Oriented x3 HEENT: Atraumatic, PERRLA, Mucous membr. moist/pink, EOMI, Sclerae nonicteric Neck: Supple, 2+ carotid pulse no bruit, No LAD, Without JVD or thyroid abnormality Respiratory: Clear to auscultation bilaterally, Normal air movement Cardiovascular: Regular rate/rhythm, Normal S1 S2 Capillary refill: <2 Seconds Gastrointestinal: Normal bowel sounds, No tenderness Musculoskeletal: No tenderness Integumentary: No rashes, Diabetic ulcer Neurological: Normal gait, Normal speech, Normal tone, Normal affect Lymphatics: No axilla or inguinal lymphadenopathy External genitalia: Deferred Rectal: Deferred - Studies Laboratory Data (last 24 hrs) 06/21/21 11:46: WBC 7.20, Hgb 7.9 L, Hct 25.0 L, Plt Count 229 06/21/21 11:46: Sodium 136, Potassium 4.9, BUN 77 H, Creatinine 3.98 H, Glucose 182 H, Total Bilirubin 0.3, AST 17, ALT 22, Alkaline Phosphatase 103 <Blanca Draper - Last Filed: 06/21/21 18:37> Assessment and Plan - Plan --Acute kidney injury. Likely duet to Vancomycin. Nephrology consulted. Will hold off on antibiotics until evaluation by roller repairer. --Right foot osteomyelitis. Will continue antibiotics once assessed by roller repairer. Continue supportive care. --HLD. Continue statin. --DM2 with Neuropathy. BS monitoring with sliding scale insulin. Continue Lyrica for neuropathy. --Hypertension. Stable. Continue medications. --History of CAD with CABG. Continue Plavix and statin. --Anemia of chronic disease. H&H stable. We will continue to monitor hemoglobin and transfuse if less than 7.0. --DVT prophylaxis with heparin subQ I have had discussion about advanced directives with the patient during this hospital admission. Addressed code status and goals of care. Spent more than 30 minutes. Case discussed withpatient and nurse. The following document was completed using voice recognition software. This can produce assembler plastic boat errors that can at times significantly distort words and phrases. Please interpret any aspect of the note that is nonsensical in light of this fact. Discharge Plan: Home Plan to discharge in: 48 Hours - Advance Directives Does patient have a Living Will: No Does patient have a Durable POA for Healthcare: No - Code Status/Comfort Care Code Status Assessed: Yes Code Status: Full Code Physician Review: Patient Assessed, Agree with Above Assessment and Plan Critical Care: No <Blanca Draper - Last Filed: 06/21/21 18:37> - Problems (Diagnosis) (1) CKD (chronic kidney disease) stage 3, GFR 30-59 ml/min Current Visit: No Status: Acute (2) Chronic anemia Current Visit: No Status: Acute (3) Diabetic foot ulcer Current Visit: No Status: Acute Qualifiers: Diabetic foot ulcer location: toe Diabetes mellitus type: type 2 Laterality: right Non-pressure ulcer stage: with necrosis of muscle Qualified Code(s): E11.621 - Type 2 diabetes mellitus with foot ulcer; L97.513 - Non-pressure chronic ulcer of other part of right foot with necrosis of muscle (4) MRSA (methicillin resistant staph aureus) culture positive Current Visit: No Status: Acute (5) CAD (coronary artery disease) Onset Date: 05/26/16 Current Visit: No Status: Chronic Qualifiers: (6) HTN (hypertension) Onset Date: 05/26/16 Current Visit: No Status: Chronic Qualifiers: Hypertension type: essential hypertension (7) Hyperlipidemia Onset Date: 09/05/18 Current Visit: No Status: Chronic Qualifiers: Hyperlipidemia type: mixed hyperlipidemia Qualified Code(s): E78.2 - Mixed hyperlipidemia (8) Type 2 diabetes mellitus without complications Onset Date: 09/05/18 Current Visit: No Status: Chronic Qualifiers: <Nathanael Gates - Last Filed: 06/26/21 10:33> Date of Service: 06/21/21 Subjective Agree with the HPI as mentioned above Review of Systems 10-point ROS is otherwise unremarkable Physical Examination - Vital Signs Reviewed - Physical Exam General: Alert, In no apparent distress, Oriented x3 Respiratory: Clear to auscultation bilaterally, Normal air movement, Crackles/rales Cardiovascular: Regular rate/rhythm, Normal S1 S2, Systolic murmur Gastrointestinal: Normal bowel sounds, Soft and benign, Non-distended, No tenderness Musculoskeletal: No clubbing, No swelling, No tenderness Neurological: Sensation intact, Cranial nerves 3-12 intact Assessment & Plan - Problems (Diagnosis) (1) CKD (chronic kidney disease) stage 3, GFR 30-59 ml/min Current Visit: No Status: Acute (2) Chronic anemia Current Visit: No Status: Acute (3) Diabetic foot ulcer Current Visit: No Status: Acute Qualifiers: Diabetic foot ulcer location: toe Diabetes mellitus type: type 2 Laterality: right Non-pressure ulcer stage: with necrosis of muscle Qualified Code(s): E11.621 - Type 2 diabetes mellitus with foot ulcer; L97.513 - Non-pressure chronic ulcer of other part of right foot with necrosis of muscle (4) MRSA (methicillin resistant staph aureus) culture positive Current Visit: No Status: Acute (5) CAD (coronary artery disease) Onset Date: 05/26/16 Current Visit: No Status: Chronic Qualifiers: (6) HTN (hypertension) Onset Date: 05/26/16 Current Visit: No Status: Chronic Qualifiers: Hypertension type: essential hypertension (7) Hyperlipidemia Onset Date: 09/05/18 Current Visit: No Status: Chronic Qualifiers: Hyperlipidemia type: mixed hyperlipidemia Qualified Code(s): E78.2 - Mixed hyperlipidemia (8) Type 2 diabetes mellitus without complications Onset Date: 09/05/18 Current Visit: No Status: Chronic Qualifiers: - Plan Plan of care as mentioned below: 1. Will gently hydrate patient and monitor renal function closely 2. Strict blood pressure control 3. Nephrology consultation & infectious disease consultation 4. Continue with IV antibiotic; await Infectious Disease recommendations in the setting of with acute renal insufficiency 5. Continue with local wound care 6. Wound care consultation 7. Monitor CBC 8. Strict blood sugar monitoring 9. Pain control 10. GI and DVT prophylaxis <Nathanael Gates - Last Filed: 06/26/21 10:33>
[2021-06-21] MEDS: FUROSEMIDE 40 MG TABLET PO SCH (18:00)
[2021-06-21 19:27] LABS: Thyroid Stimulating Hormone 2.44 uIU/mL (0.360-3.740)
[2021-06-21] MEDS: METOPROLOL TAR 50 MG TAB PO SCH (20:19)
[2021-06-21] MEDS: PREGABALIN 75 MG CAP PO SCH (20:19)
[2021-06-21] MEDS: INSULIN -REGULAR HUMAN 50 UNIT/0.5 ML ML SQ SCH (20:21)
[2021-06-21 20:40] LABS: Urine Appearance CLEAR (Clear); Urine Bilirubin NEGATIVE (Negative); Urine Blood TRACE (Negative); Urine Color YELLOW (Yellow); Urine Glucose NEGATIVE (Negative); Urine Protein 1+ (Negative); Urine Specific Gravity <=1.005 (1.005-1.030); Urine Urobilinogen 0.2 mg/dL (0.2-1.0); Urine pH 5.5 (5.0-7.0)
[2021-06-21 20:42] LABS: Urine Microscopic Reflex ORDER UMIC
[2021-06-21 20:54] LABS: Urine Amorphous Sediment 1+ /HPF (NONE SEEN); Urine Bacteria <20 /HPF (<20); Urine RBC <5 /HPF (NONE SEEN); Urine Urothelial Cells <5 /HPF (NONE SEEN)
[2021-06-22] MEDS: HEPARIN 5000 UNIT/ML 1 ML VIAL SQ SCH ×3 (01:47→16:00)
[2021-06-22 06:38] LABS: Absolute Lymphocytes (CBC) 0.9 K/uL (0.7-4.9); Basophils % 1.3 % (0-1.3); Hematocrit 25.4 % (36.0-45.0); Lymphocytes % 14.3 % (15.3-44.8); MPV 8.5 fL (7.6-11.3)
[2021-06-22 06:56] LABS: Phosphorus 5.4 mg/dL (2.5-4.9); Potassium 4.6 mmol/L (3.5-5.1); Uric Acid 7.5 mg/dL (2.6-6.0)
[2021-06-22] MEDS: INSULIN -REGULAR HUMAN 50 UNIT/0.5 ML ML SQ SCH ×4 (07:30→20:29)
[2021-06-22] MEDS: ASPIRIN 81 MG CHEWABLE TABLET PO SCH (08:39)
[2021-06-22] MEDS: FUROSEMIDE 40 MG TABLET PO SCH ×2 (08:39→16:00)
[2021-06-22] MEDS: CALCITROL 0.25 MCG CAP PO SCH (08:40)
[2021-06-22] MEDS: METOPROLOL TAR 50 MG TAB PO SCH ×2 (08:40→20:28)
[2021-06-22] MEDS: PREGABALIN 75 MG CAP PO SCH ×2 (08:40→20:29)
[2021-06-22] MEDS: CLOPIDOGREL 75 MG TABLET PO SCH (08:41)
[2021-06-22] MEDS: VITAMIN D 5,000 UNIT CAP PO SCH (08:41)
[2021-06-22] MEDS: ATORVASTATIN 10 MG TAB PO SCH (08:42)
[2021-06-22] MEDS ORDERED: HOME MED 1 EA UNK (Pravastatin [Pravachol*] 40 MG/TAB Tab) PO SCH (09:00)
[2021-06-22] MEDS ORDERED: VITAMIN D 5,000 UNIT CAP PO SCH (09:00)
[2021-06-22] MEDS: CALCIUM CARBONATE CHEW 500MG TAB PO PRN ×2 (09:12→15:58)
[2021-06-22] MEDS: MEDIHONEY 44 ML TOPICAL TUBE TOP SCH (09:12)
--- NOTE | 2021-06-22 11:54 | P.CNS ---
Date of Consult: 06/22/21 Chief Complaint: CODI History of Present Illness: Patient is a 71-year-old female with a past medical history significant for hyperlipidemia, diabetes type 2 with diabetic neuropathy, hypertension, CA ABG, and chronic left diabetic foot ulcer who presented to the emergency de partment after obtaining an abnormal labs via home health. Patient sees Dr. Brewer in clinic outpatient, patient's labs were taken Monday, and doctor was called Monday with the labs. Patient had elevated creatinine, vancomycin trough was 35.8. Patient had vancomycin induced renal toxicity. Patient has been admitted for further management. All antibiotics have been discontinued. Patient currently states she feels unwell, denies nausea/vomiting/diarrhea/shortness breast/chest pain. Reports tenderness to left diabetic foot ulcer on lateral aspect. Allergies levofloxacin [From Levaquin] Allergy (Verified 09/10/19 00:48) Nausea/Vomiting Home Medications: Furosemide [Lasix*] 40 mg PO BID 05/11/16 Metformin HCl [Metformin ER Osmotic] 500 mg PO BID 05/11/16 Metoprolol Tartrate [Lopressor*] 50 mg PO BID 05/11/16 Pravastatin [Pravachol*] 40 mg PO DAILY 05/11/16 Pregabalin [Lyrica*] 75 mg PO BID 09/04/18 Spironolactone 25 mg PO DAILY 90 Days #90 tablet 09/28/20 Calcium Carbonate [Tums Regular*] 500 mg PO QID PRN #120 tab 06/08/21 Cefepime [Maxipime 1 gm/100 ml Ivpb] 1 gm IV Q12HR 21 Days bag 06/08/21 Cholecalciferol (Vitamin D3) [Vitamin D 5,000 IU Cap*] 5,000 unit PO DAILY #30 cap 06/08/21 Clopidogrel Bisulfate [Plavix*] 75 mg PO DAILY #30 tablet 06/08/21 Hydrocodone 7.5/APAP 325 [[place] 7.5/325 mg*] 1 tab PO Q6H PRN #30 tab 06/08/21 Medihoney [Medihoney Woundcare Gel*] 1 appl TOP DAILY #1 tube 06/08/21 Metoprolol Tartrate [Lopressor*] 50 mg PO BID 6AM 6PM #60 tab 06/08/21 Vancomycin HCl in Dextrose 5 % [Vancomycin 1.5 Gram/250 ml-D5w] 1.5 gm IV Q48H 21 Days plast..bag 06/08/21 - Past Medical/Surgical History Diabetic: Yes -: CAD -: Diabetes mellitus type 2 insulin-dependent -: HTN -: Hyperlipidemia -: Diabetic neuropathy -: History of CABG x3 vessel -: CHF -: Peripheral vascular disease -: History of osteomyelitis of the right foot -: CABG X 3 -: cataract sx -: History of transmetatarsal amputation of the right fifth toe Psychosocial/ Personal History: Patient lives at home - Family History Father Medical History: Stroke Sister Medical History: Cancer Mother Medical History: Heart disease - Social History Alcohol use: No CD- Drugs: No Caffeine use: Yes Review of Systems 10-point ROS is otherwise unremarkable Physical Examination Temp Pulse Resp BP Pulse Ox 97.1 F 82 18 129/73 97 06/22/21 08:00 06/22/21 08:39 06/22/21 08:00 06/22/21 08:39 06/22/21 08:00 General: Alert, In no apparent distress, Oriented x3 HEENT: Atraumatic, Normocephalic Neck: Supple, 2+ carotid pulse no bruit Respiratory: Clear to auscultation bilaterally, Normal air movement Cardiovascular: No edema, Normal pulses Capillary refill: <2 Seconds Gastrointestinal: Normal bowel sounds, Hypoactive Musculoskeletal: Other (Left Charcot foot changes, diabetic ulcer 2 plantar aspect and lateral aspect of left foot.) Laboratory Data (last 24 hrs) 06/21/21 11:46: WBC 7.20, Hgb 7.9 L, Hct 25.0 L, Plt Count 229 06/21/21 11:46: Sodium 136, Potassium 4.9, BUN 77 H, Creatinine 3.98 H, Glucose 182 H, Total Bilirubin 0.3, AST 17, ALT 22, Alkaline Phosphatase 103 Conclusions/Impression: Assessment/plan Vancomycin induced renal toxicity Patient presented with abnormal labs from home health obtained on 06/18. Creatinine was found to be 3.12, patient's baseline creatinine is 1.2. Vancomycin trough taken on 06/21 was 35.8. Vancomycin has been discontinued. Patient was on a combination of vancomycin and cefepime to treat her right diabetic foot ulcer with superimposed cellulitis. Chronic right diabetic foot ulcer with history of osteomyelitis Continue current wound care: Apply [facility] and cover with foam. Patient has history of osteomyelitis in that foot, however MRI performed on 06/03 showed no signs of osteomyelitis. Patient's has been on combination of vancomycin and cefepime from 06/03 through 06/21. Diabetes Continue SSI Protein caloric malnutrition Recommend supplemental Ensure protein drinks Anemia of chronic disease Continue to monitor H&H Medical management per primary team Continue monitor CBC and BMP Continue monitor for signs of infection Plan of care discussed with Dr. brewer Thank you for consultation
[2021-06-22] MEDS: ONDANSETRON 4 MG/2 ML VIAL IV PRN ×2 (15:58→23:29)
[2021-06-22] MEDS: SODIUM CHLORIDE 0.9% 10ML INJ IV PRN (16:09)
[2021-06-22] MEDS ORDERED: PANTOPRAZOLE 40 MG INJ IVP ONE (17:00)
--- NOTE | 2021-06-22 21:11 | P.CNS ---
Date of Consult: 06/22/21 Reason for Consult: CODI/ CKD Requesting Physician: Nathanael Gates Chief Complaint: CODI History of Present Illness: Patient is a 71-year-old female with a past medical history significant for hyperlipidemia, DM 2 with neuropathy, hypertension, CABG who presents with complaint of abnormal labs. Patient was sent to the ER by her infectious disease MD due to an increase in creatinine. Patient reported that she is been treated with antibiotic for osteomyelitis. She was placed on 2 antibiotics for osteomyelitis of the right foot and that she has completed about 2 weeks of antibiotic treatment. Patient denies any other signs and symptoms. Symptoms are aggravated or relieved by nothing. Patient was brought to the hospital for medical evaluation. 11:37 This 71 yrs old Female presents to ER via Wheelchair with complaints of jr8 Abnormal Labs. 11:37 This is a 71-year-old female patient was brought to the emergency room for further jr8 evaluation for abnormal labs. Her infectious disease doctor who is taking care of her for osteomyelitis sent her in because they had seen a spike in her creatinine. Wanted us to recheck labs to ensure that she does not have acute renal failure. Patient currently asymptomatic at this time.. The patient has not experienced similar symptoms in the past. The patient has been recently seen by a physician:. Allergies levofloxacin [From Levaquin] Allergy (Verified 09/10/19 00:48) Nausea/Vomiting Home medications list reviewed: Yes Home Medications: Furosemide [Lasix*] 40 mg PO BID 05/11/16 Metformin HCl [Metformin ER Osmotic] 500 mg PO BID 05/11/16 Metoprolol Tartrate [Lopressor*] 50 mg PO BID 05/11/16 Pravastatin [Pravachol*] 40 mg PO DAILY 05/11/16 Pregabalin [Lyrica*] 75 mg PO BID 09/04/18 Spironolactone 25 mg PO DAILY 90 Days #90 tablet 09/28/20 Calcium Carbonate [Tums Regular*] 500 mg PO QID PRN #120 tab 06/08/21 Cefepime [Maxipime 1 gm/100 ml Ivpb] 1 gm IV Q12HR 21 Days bag 06/08/21 Cholecalciferol (Vitamin D3) [Vitamin D 5,000 IU Cap*] 5,000 unit PO DAILY #30 cap 06/08/21 Clopidogrel Bisulfate [Plavix*] 75 mg PO DAILY #30 tablet 06/08/21 Hydrocodone 7.5/APAP 325 [[place] 7.5/325 mg*] 1 tab PO Q6H PRN #30 tab 06/08/21 Medihoney [Medihoney Woundcare Gel*] 1 appl TOP DAILY #1 tube 06/08/21 Metoprolol Tartrate [Lopressor*] 50 mg PO BID 6AM 6PM #60 tab 06/08/21 Vancomycin HCl in Dextrose 5 % [Vancomycin 1.5 Gram/250 ml-D5w] 1.5 gm IV Q48H 21 Days plast..bag 06/08/21 - Past Medical/Surgical History Diabetic: Yes -: CAD -: Diabetes mellitus type 2 insulin-dependent -: HTN -: Hyperlipidemia -: Diabetic neuropathy -: History of CABG x3 vessel -: CHF -: Peripheral vascular disease -: History of osteomyelitis of the right foot -: CABG X 3 -: cataract sx -: History of transmetatarsal amputation of the right fifth toe Psychosocial/ Personal History: Patient lives at home - Family History Father Medical History: Stroke Sister Medical History: Cancer Mother Medical History: Heart disease - Social History Alcohol use: No CD- Drugs: No Caffeine use: Yes Physical Examination Temp Pulse Resp BP Pulse Ox 97 F 76 18 119/67 99 06/22/21 20:00 06/22/21 20:28 06/22/21 20:00 06/22/21 20:28 06/22/21 20:00 General: In no apparent distress, Oriented x3, Cooperative HEENT: Atraumatic Neck: Supple Respiratory: Clear to auscultation bilaterally Cardiovascular: Regular rate/rhythm, Edema Gastrointestinal: Soft and benign, Non-distended Musculoskeletal: No clubbing, No contractures Integumentary: No rashes, No cyanosis Neurological: Normal speech Blood work reviewed in the chart. Imagings Data: EXAM DESCRIPTION: RAD - Chest Single View - 06/08/2021 4:06 pm CLINICAL HISTORY: PICC line placement COMPARISON: Portable chest same date FINDINGS: Portable chest was obtained following placement of a right upper extremity PICC line. The catheter tip is in the mid SVC, good positioning. Conclusions/Impression: CODI likely due to vancomycin CKD III with proteinuria -No NSAIDs -Hold vancomycin Hypocalcemia -Continue Vitamin D HTN with CKD/ CHF -Restart Metoprolol as needed Diastolic CHF, chronic LE Edema -Low sodium diet -Lasix 40mg BID DM II with CKD & Polyneuropathy Right DM foot ulcer with osteomyelitis -RISS -Continue Lyrica Moderate malnutrition -Encourage nutrition Anemia in chronic illness -Continue Retacrit Thank you kindly for the consultation.
[2021-06-23] MEDS: HEPARIN 5000 UNIT/ML 1 ML VIAL SQ SCH ×3 (02:07→17:01)
[2021-06-23] MEDS: INSULIN -REGULAR HUMAN 50 UNIT/0.5 ML ML SQ SCH ×4 (07:30→21:00)
[2021-06-23] MEDS: PREGABALIN 75 MG CAP PO SCH ×2 (09:00→21:00)
[2021-06-23] MEDS: ATORVASTATIN 10 MG TAB PO SCH (09:00)
--- NOTE | 2021-06-23 09:05 | P.PN ---
Subjective Date of Service: 06/22/21 PATIENT CLINICALLY DOING WELL WITH NO NEW COMPLAINTS. PATIENT'S SYMPTOMS ARE IMPROVING. PATIENT DENIES ANY OTHER COMPLAINTS. PATIENT RENAL FUNCTION HAS WORSENED. INFECTIOUS DISEASE AND NEPHROLOGY CONSULTED. PATIENT IS ACTUALLY A PATIENT OF DR. SMITH AND WILL BE TRANSFER TO HIS CARE. Review of Systems 10-point ROS is otherwise unremarkable Physical Examination - Vital Signs Temperature: 96.9 F Blood Pressure: 112/55 Pulse: 74 Respirations: 18 Pulse Ox (%): 100 - Physical Exam General: Alert, In no apparent distress, Oriented x3 Respiratory: Clear to auscultation bilaterally, Normal air movement, Crackles/rales Cardiovascular: Regular rate/rhythm, Normal S1 S2, Systolic murmur Gastrointestinal: Normal bowel sounds, Soft and benign, Non-distended, No tenderness Musculoskeletal: No clubbing, No swelling, No tenderness Neurological: Sensation intact, Cranial nerves 3-12 intact - Studies Medications List Reviewed: Yes Assessment & Plan - Problems (Diagnosis) (1) CKD (chronic kidney disease) stage 3, GFR 30-59 ml/min Current Visit: No Status: Acute (2) Chronic anemia Current Visit: No Status: Acute (3) Diabetic foot ulcer Current Visit: No Status: Acute Qualifiers: Diabetic foot ulcer location: toe Diabetes mellitus type: type 2 Laterality: right Non-pressure ulcer stage: with necrosis of muscle Qualified Code(s): E11.621 - Type 2 diabetes mellitus with foot ulcer; L97.513 - Non-pressure chronic ulcer of other part of right foot with necrosis of muscle (4) MRSA (methicillin resistant staph aureus) culture positive Current Visit: No Status: Acute (5) CAD (coronary artery disease) Onset Date: 05/26/16 Current Visit: No Status: Chronic Qualifiers: (6) HTN (hypertension) Onset Date: 05/26/16 Current Visit: No Status: Chronic Qualifiers: Hypertension type: essential hypertension (7) Hyperlipidemia Onset Date: 09/05/18 Current Visit: No Status: Chronic Qualifiers: Hyperlipidemia type: mixed hyperlipidemia Qualified Code(s): E78.2 - Mixed hyperlipidemia (8) Type 2 diabetes mellitus without complications Onset Date: 09/05/18 Current Visit: No Status: Chronic Qualifiers: - Plan Plan: 1. Hydration 2. Monitor renal function 3. Nephrology consultation & infectious disease consultation 4. Continue with IV antibiotic 5. Continue with local wound care 6. Wound care consultation 7. Monitor CBC 8. Strict blood sugar monitoring 9. Pain control 10. GI and DVT prophylaxis Discharge Plan: Home Plan to discharge in: Greater than 2 days - Advance Directives Does patient have a Living Will: No Does patient have a Durable POA for Healthcare: No - Code Status/Comfort Care Code Status: Full Code Physician Review: Patient Assessed, Agree with Above Assessment and Plan Critical Care: No Time Spent Managing PTS Care (In Minutes): 35
--- NOTE | 2021-06-23 09:16 | P.PN ---
Subjective Date of Service: 06/23/21 Chief Complaint: CODI Subjective: No new changes Review of Systems 10-point ROS is otherwise unremarkable Physical Examination - Vital Signs Temperature: 96.9 F Blood Pressure: 112/55 Pulse: 74 Respirations: 18 Pulse Ox (%): 100 - Physical Exam General: Alert, In no apparent distress HEENT: Atraumatic, PERRLA, EOMI Neck: Supple, JVD not distended Respiratory: Clear to auscultation bilaterally, Normal air movement Cardiovascular: Regular rate/rhythm, Normal S1 S2 Gastrointestinal: Normal bowel sounds, No tenderness Musculoskeletal: No tenderness Integumentary: No rashes Neurological: Normal speech, Normal tone, Normal affect Lymphatics: No axilla or inguinal lymphadenopathy - Studies Medications List Reviewed: Yes Assessment & Plan - Problems (Diagnosis) (1) Vancomycin adverse reaction Current Visit: Yes Status: Acute Plan: Patient is here with elevated vancomycin onn admission. Qualifiers: Encounter type: subsequent encounter Qualified Code(s): T36.8X5D - Adverse effect of other systemic antibiotics, subsequent encounter (2) Acute kidney failure Current Visit: Yes Status: Acute Plan: Patient has very poor kidney function. She will hopefully improve. will order routine labs on the patient Qualifiers: Acute renal failure type: unspecified Qualified Code(s): N17.9 - Acute kidney failure, unspecified (3) Diastolic CHF Current Visit: Yes Status: Acute Plan: curriently stable. will continue following her volume status Qualifiers: Heart failure chronicity: chronic Qualified Code(s): I50.32 - Chronic diastolic (congestive) heart failure (4) Type 2 diabetes mellitus with foot ulcer Current Visit: No Status: Chronic Plan: will continue home insulin and follow as needed. 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
[2021-06-23] MEDS: CLOPIDOGREL 75 MG TABLET PO SCH ×2 (09:26→09:30)
[2021-06-23] MEDS: VITAMIN D 5,000 UNIT CAP PO SCH (09:26)
[2021-06-23] MEDS: FUROSEMIDE 40 MG TABLET PO SCH ×2 (09:26→17:00)
[2021-06-23] MEDS: METOPROLOL TAR 50 MG TAB PO SCH ×2 (09:26→21:00)
[2021-06-23] MEDS: ASPIRIN 81 MG CHEWABLE TABLET PO SCH (09:27)
[2021-06-23] MEDS: CALCITROL 0.25 MCG CAP PO SCH (09:29)
[2021-06-23] MEDS: MEDIHONEY 44 ML TOPICAL TUBE TOP SCH (11:15)
[2021-06-23 11:19] LABS: Absolute Lymphocytes (CBC) 1.3 K/uL (0.7-4.9); Basophils % 1.3 % (0-1.3); Hematocrit 27.5 % (36.0-45.0); Lymphocytes % 18.7 % (15.3-44.8); MPV 8.8 fL (7.6-11.3); RBC Red Blood Cell Count 3.32 M/uL (3.86-4.86)
[2021-06-23 11:35] LABS: Albumin 2.9 g/dL (3.4-5.0); Bilirubin Total 0.3 mg/dL (0.2-1.0); Potassium 4.5 mmol/L (3.5-5.1)
--- NOTE | 2021-06-23 13:10 | P.PN ---
Subjective Date of Service: 06/23/21 Chief Complaint: CODI Patient seen examined at bedside, very anxious. Patient is very concerned about increasing creatinine, nephrology on board. Patient may need transient dialysis. Review of Systems 10-point ROS is otherwise unremarkable Physical Examination - Vital Signs Temperature: 97.6 F Blood Pressure: 115/56 Pulse: 85 Respirations: 18 Pulse Ox (%): 98 - Studies Laboratory Last Values WBC 7.20 K/uL (4.3-10.9) 06/21/21 11:46 RBC 3.01 M/uL (3.86-4.86) L 06/21/21 11:46 Hgb 7.9 g/dL (12.0-15.0) L 06/21/21 11:46 Hct 25.0 % (36.0-45.0) L 06/21/21 11:46 MCV 83.0 fL (80-100) 06/21/21 11:46 MCH 26.4 pg (27.0-35.0) L 06/21/21 11:46 MCHC 31.8 g/dL (32.0-36.0) L 06/21/21 11:46 RDW 15.4 % (12.1-15.2) H 06/21/21 11:46 Plt Count 229 K/uL (152-406) 06/21/21 11:46 MPV 8.7 fL (7.6-11.3) 06/21/21 11:46 Neutrophils % 67.4 % (41.7-73.7) 06/21/21 11:46 Lymphocytes % 12.5 % (15.3-44.8) L 06/21/21 11:46 Monocytes % 7.3 % (3.3-12.3) 06/21/21 11:46 Eosinophils % 11.7 % (0-4.4) H 06/21/21 11:46 Basophils % 1.1 % (0-1.3) 06/21/21 11:46 Absolute Neutrophils 4.8 K/uL (1.8-8.0) 06/21/21 11:46 Absolute Lymphocytes 0.9 K/uL (0.7-4.9) 06/21/21 11:46 Absolute Monocytes 0.5 K/uL (0.1-1.3) 06/21/21 11:46 Absolute Eosinophils 0.8 K/uL (0-0.5) H 06/21/21 11:46 Absolute Basophils 0.1 K/uL (0-0.5) 06/21/21 11:46 Sodium 136 mmol/L (136-145) 06/21/21 11:46 Potassium 4.9 mmol/L (3.5-5.1) 06/21/21 11:46 Chloride 105 mmol/L (98-107) 06/21/21 11:46 Carbon Dioxide 21 mmol/L (21-32) 06/21/21 11:46 BUN 77 mg/dL (7-18) H 06/21/21 11:46 Creatinine 3.98 mg/dL (0.55-1.3) H 06/21/21 11:46 Estimated GFR 11 mL/min (=/>90) L 06/21/21 11:46 Glucose 182 mg/dL (74-106) H 06/21/21 11:46 Calcium 8.3 mg/dL (8.5-10.1) L 06/21/21 11:46 Total Bilirubin 0.3 mg/dL (0.2-1.0) 06/21/21 11:46 Direct Bilirubin 0.1 mg/dL (0-0.2) 06/21/21 11:46 AST 17 U/L (15-37) 06/21/21 11:46 ALT 22 U/L (12-78) 06/21/21 11:46 Alkaline Phosphatase 103 U/L (45-117) 06/21/21 11:46 Serum Total Protein 7.6 g/dL (6.4-8.2) 06/21/21 11:46 Albumin 2.8 g/dL (3.4-5.0) L 06/21/21 11:46 Globulin 4.8 g/dL (2.3-3.5) H 06/21/21 11:46 Albumin/Globulin Ratio 0.6 (1.1-1.8) L 06/21/21 11:46 SARS-CoV-2 Rap RNA(RT-PCR) Negative (NEGATIVE) 06/21/21 12:30 Medications List Reviewed: Yes Assessment And Plan - Plan Conclusions/Impression: Assessment/plan Vancomycin induced renal toxicity Patient presented with abnormal labs from home health obtained on 06/18. Creatinine was found to be 3.12, patient's baseline creatinine is 1.2. Vancomycin trough taken on 06/21 was 35.8. Vancomycin has been discontinued. Patient was on a combination of vancomycin and cefepime to treat her right diabetic foot ulcer with superimposed cellulitis. Nephrology on board. Patient may need transient dialysis. Chronic right diabetic foot ulcer with history of osteomyelitis Continue current wound care: Apply Medihoney and cover with foam. Patient has history of osteomyelitis in that foot, however MRI performed on 06/03 showed no signs of osteomyelitis. Patient's has been on combination of vancomycin and cefepime from 06/03 through 06/21. Diabetes Continue SSI Protein caloric malnutrition Recommend supplemental Ensure protein drinks Anemia of chronic disease Continue to monitor H&H Medical management per primary team Continue monitor CBC and BMP Continue monitor for signs of infection Plan of care discussed with Dr. brewer Thank you for consultation Physician Review: Patient Assessed, Agree with Above Assessment and Plan
[2021-06-23 15:48] VITALS: BMI 24.5
[2021-06-23] MEDS: EPOETIN ALFA-EPBX 4,000 UNIT/ML VIAL SQ SCH (17:01)
--- NOTE | 2021-06-23 20:23 | P.PN ---
Date of Service: 06/23/21 Vital Signs Temp Pulse Resp BP Pulse Ox 97.7 F 78 18 126/78 98 06/23/21 16:00 06/23/21 17:00 06/23/21 16:00 06/23/21 17:00 06/23/21 16:00 Medications Acetaminophen (Acetaminophen 500 Mg Tab) 500 mg PO Q4HP PRN PRN Reason: TEMP > 100' F Hydrocodone Bitart/Acetaminophen (Hydrocodone/Apap 7.5/325 Mg Tab) 1 tab PO Q6H PRN PRN Reason: Pain scale 5-7 (Moderate) Last Admin: 06/22/21 16:04 Dose: 1 tab Documented by: Aspirin (Aspirin 81 Mg Chewable Tablet) 81 mg PO DAILY [facility] Last Admin: 06/23/21 09:27 Dose: 81 mg Documented by: Atorvastatin Calcium (Atorvastatin 10 Mg Tab) 10 mg PO DAILY [facility] Last Admin: 06/23/21 09:00 Dose: 10 mg Documented by: Calcitriol (Calcitrol 0.25 Mcg Cap) 0.5 mcg PO DAILY [facility] Last Admin: 06/23/21 09:29 Dose: 0.5 mcg Documented by: Cholecalciferol (Vitamin D 5,000 Unit Cap) 5,000 unit PO DAILY [facility] Last Admin: 06/23/21 09:26 Dose: 5,000 unit Documented by: Clopidogrel Bisulfate (Clopidogrel 75 Mg Tablet) 75 mg PO DAILY [facility] Last Admin: 06/23/21 09:30 Dose: 75 mg Documented by: Emollient Gel (Medihoney 44 Ml Topical Tube) 1 appl TOP DAILY [facility] Furosemide (Furosemide 40 Mg Tablet) 40 mg PO BIDL [facility] Last Admin: 06/23/21 17:00 Dose: 40 mg Documented by: Heparin Sodium (Porcine) (Heparin 5000 Unit/Ml 1 Ml Vial) 5,000 unit SQ Q8HR [facility] Last Admin: 06/23/21 17:01 Dose: 5,000 unit Documented by: Insulin Human Regular (Insulin -Regular Human 50 Unit/0.5 Ml Ml) 0 unit SQ ACHS [facility]; Protocol Last Admin: 06/23/21 16:26 Dose: Not Given Documented by: Labetalol HCl (Labetalol 20 Mg/4ml Syringe) 10 mg IV Q6H PRN PRN Reason: SBP>160 Metoprolol Tartrate (Metoprolol Tar 50 Mg Tab) 50 mg PO BID [facility] Last Admin: 06/23/21 09:26 Dose: 50 mg Documented by: Ondansetron HCl (Ondansetron 4 Mg/2 Ml Vial) 4 mg IV Q6HP PRN PRN Reason: NAUSEA / VOMITING Last Admin: 06/22/21 23:29 Dose: 4 mg Documented by: Pregabalin (Pregabalin 75 Mg Cap) 75 mg PO BID [facility] Last Admin: 06/23/21 09:00 Dose: 75 mg Documented by: Sodium Chloride (Flush Normal Saline 10 Ml) 10 ml IV BID [facility] Last Admin: 06/23/21 09:32 Dose: 10 ml Documented by: Sodium Chloride (Sodium Chloride 0.9% 10ml Inj) 10 ml IV UD PRN PRN Reason: Diluant Last Admin: 06/22/21 16:09 Dose: 10 ml Documented by: Assessment/ Plan: Nephrology Progress Note Doing well. Good urine output. No chest pain or dyspnea No acute events overnight Vitals, medications blood work and imaging reviewed in the chart General: In no apparent distress, Oriented x3, Cooperative HEENT: Atraumatic Neck: Supple Respiratory: Clear to auscultation bilaterally Cardiovascular: Regular rate/rhythm, Edema Gastrointestinal: Soft and benign, Non-distended Musculoskeletal: No clubbing, No contractures Integumentary: No rashes, No cyanosis Neurological: Normal speech Blood work reviewed in the chart. Imagings Data: EXAM DESCRIPTION: RAD - Chest Single View - 06/08/2021 4:06 pm CLINICAL HISTORY: PICC line placement COMPARISON: Portable chest same date FINDINGS: Portable chest was obtained following placement of a right upper extremity PICC line. The catheter tip is in the mid SVC, good positioning. Conclusions/Impression: CODI likely due to vancomycin CKD III with proteinuria -No NSAIDs -Hold vancomycin Hypocalcemia -Continue Vitamin D HTN with CKD/ CHF -Continue Metoprolol Diastolic CHF, chronic LE Edema -Low sodium diet -Lasix 40mg BID DM II with CKD & Polyneuropathy Right DM foot ulcer with osteomyelitis -RISS -Continue Lyrica Moderate malnutrition -Encourage nutrition Anemia in chronic illness -Continue Retacrit Case discussed with Dr. Lieberman and Dr. Macias
[2021-06-24] MEDS: HEPARIN 5000 UNIT/ML 1 ML VIAL SQ SCH ×3 (00:25→17:46)
[2021-06-24 06:16] LABS: Absolute Lymphocytes (CBC) 1.7 K/uL (0.7-4.9); Basophils % 1.1 % (0-1.3); Hematocrit 25.9 % (36.0-45.0); Lymphocytes % 25.9 % (15.3-44.8); MPV 8.8 fL (7.6-11.3); RBC Red Blood Cell Count 3.15 M/uL (3.86-4.86)
[2021-06-24 06:57] LABS: Bilirubin Total 0.3 mg/dL (0.2-1.0); Magnesium 2.5 mg/dL (1.8-2.4); Phosphorus 6.3 mg/dL (2.5-4.9); Protein, Total 7.7 g/dL (6.4-8.2); Uric Acid 7.5 mg/dL (2.6-6.0)
[2021-06-24] MEDS: INSULIN -REGULAR HUMAN 50 UNIT/0.5 ML ML SQ SCH ×4 (07:30→20:28)
--- NOTE | 2021-06-24 07:57 | P.PN ---
Subjective Date of Service: 06/24/21 Chief Complaint: CODI Subjective: No new changes Review of Systems 10-point ROS is otherwise unremarkable Physical Examination - Vital Signs Temperature: 97.1 F Blood Pressure: 126/58 Pulse: 76 Respirations: 18 Pulse Ox (%): 97 - Physical Exam General: Alert, In no apparent distress HEENT: Atraumatic, PERRLA, EOMI Neck: Supple, JVD not distended Respiratory: Clear to auscultation bilaterally, Normal air movement Cardiovascular: Regular rate/rhythm, Normal S1 S2 Gastrointestinal: Normal bowel sounds, No tenderness Musculoskeletal: No tenderness Integumentary: No rashes Neurological: Normal speech, Normal tone, Normal affect Lymphatics: No axilla or inguinal lymphadenopathy - Studies Medications List Reviewed: Yes Assessment & Plan - Problems (Diagnosis) (1) Vancomycin adverse reaction Current Visit: Yes Status: Acute Plan: Patient is here with elevated vancomycin onn admission. Qualifiers: Encounter type: subsequent encounter Qualified Code(s): T36.8X5D - Adverse effect of other systemic antibiotics, subsequent encounter (2) Acute kidney failure Current Visit: Yes Status: Acute Plan: Patient has very poor kidney function. She will hopefully improve. will order routine labs on the patient 06/24 Kidney function continues to worsen. Vancomycin level is still elevated. Perhaps a transient dialysis may improve it. Will discuss the patient with Dr. Walters Qualifiers: Acute renal failure type: unspecified Qualified Code(s): N17.9 - Acute kidney failure, unspecified (3) Diastolic CHF Current Visit: Yes Status: Acute Plan: curriently stable. will continue following her volume status Qualifiers: Heart failure chronicity: chronic Qualified Code(s): I50.32 - Chronic diastolic (congestive) heart failure (4) Type 2 diabetes mellitus with foot ulcer Current Visit: No Status: Chronic Plan: will continue home insulin and follow as needed. Qualifiers: Diabetes mellitus intermediate project manager insulin use: with intermediate project manager use Discharge Plan: Home Plan to discharge in: Greater than 2 days - Code Status/Comfort Care Code Status Assessed: No Physician Review: Patient Assessed, Agree with Above Assessment and Plan Critical Care: No Time Spent Managing Pts Care (In Minutes): 30
[2021-06-24] MEDS: FUROSEMIDE 40 MG TABLET PO SCH ×2 (09:36→17:46)
[2021-06-24] MEDS: VITAMIN D 5,000 UNIT CAP PO SCH (09:36)
[2021-06-24] MEDS: CLOPIDOGREL 75 MG TABLET PO SCH (09:36)
[2021-06-24] MEDS: CALCITROL 0.25 MCG CAP PO SCH (09:36)
[2021-06-24] MEDS: ASPIRIN 81 MG CHEWABLE TABLET PO SCH (09:36)
[2021-06-24] MEDS: PREGABALIN 75 MG CAP PO SCH ×2 (09:37→20:29)
[2021-06-24] MEDS: ATORVASTATIN 10 MG TAB PO SCH (09:37)
[2021-06-24] MEDS: METOPROLOL TAR 50 MG TAB PO SCH ×2 (09:37→20:29)
--- NOTE | 2021-06-24 11:08 | P.PN ---
Subjective Date of Service: 06/24/21 Chief Complaint: CODI Patient seen examined at bedside, no acute events over past 24 hours. Review of Systems 10-point ROS is otherwise unremarkable Physical Examination - Vital Signs Temperature: 97.1 F Blood Pressure: 144/67 Pulse: 81 Respirations: 18 Pulse Ox (%): 97 - Studies Laboratory Last Values WBC 7.20 K/uL (4.3-10.9) 06/21/21 11:46 RBC 3.01 M/uL (3.86-4.86) L 06/21/21 11:46 Hgb 7.9 g/dL (12.0-15.0) L 06/21/21 11:46 Hct 25.0 % (36.0-45.0) L 06/21/21 11:46 MCV 83.0 fL (80-100) 06/21/21 11:46 MCH 26.4 pg (27.0-35.0) L 06/21/21 11:46 MCHC 31.8 g/dL (32.0-36.0) L 06/21/21 11:46 RDW 15.4 % (12.1-15.2) H 06/21/21 11:46 Plt Count 229 K/uL (152-406) 06/21/21 11:46 MPV 8.7 fL (7.6-11.3) 06/21/21 11:46 Neutrophils % 67.4 % (41.7-73.7) 06/21/21 11:46 Lymphocytes % 12.5 % (15.3-44.8) L 06/21/21 11:46 Monocytes % 7.3 % (3.3-12.3) 06/21/21 11:46 Eosinophils % 11.7 % (0-4.4) H 06/21/21 11:46 Basophils % 1.1 % (0-1.3) 06/21/21 11:46 Absolute Neutrophils 4.8 K/uL (1.8-8.0) 06/21/21 11:46 Absolute Lymphocytes 0.9 K/uL (0.7-4.9) 06/21/21 11:46 Absolute Monocytes 0.5 K/uL (0.1-1.3) 06/21/21 11:46 Absolute Eosinophils 0.8 K/uL (0-0.5) H 06/21/21 11:46 Absolute Basophils 0.1 K/uL (0-0.5) 06/21/21 11:46 Sodium 136 mmol/L (136-145) 06/21/21 11:46 Potassium 4.9 mmol/L (3.5-5.1) 06/21/21 11:46 Chloride 105 mmol/L (98-107) 06/21/21 11:46 Carbon Dioxide 21 mmol/L (21-32) 06/21/21 11:46 BUN 77 mg/dL (7-18) H 06/21/21 11:46 Creatinine 3.98 mg/dL (0.55-1.3) H 06/21/21 11:46 Estimated GFR 11 mL/min (=/>90) L 06/21/21 11:46 Glucose 182 mg/dL (74-106) H 06/21/21 11:46 Calcium 8.3 mg/dL (8.5-10.1) L 06/21/21 11:46 Total Bilirubin 0.3 mg/dL (0.2-1.0) 06/21/21 11:46 Direct Bilirubin 0.1 mg/dL (0-0.2) 06/21/21 11:46 AST 17 U/L (15-37) 06/21/21 11:46 ALT 22 U/L (12-78) 06/21/21 11:46 Alkaline Phosphatase 103 U/L (45-117) 06/21/21 11:46 Serum Total Protein 7.6 g/dL (6.4-8.2) 06/21/21 11:46 Albumin 2.8 g/dL (3.4-5.0) L 06/21/21 11:46 Globulin 4.8 g/dL (2.3-3.5) H 06/21/21 11:46 Albumin/Globulin Ratio 0.6 (1.1-1.8) L 06/21/21 11:46 SARS-CoV-2 Rap RNA(RT-PCR) Negative (NEGATIVE) 06/21/21 12:30 Medications List Reviewed: Yes Assessment And Plan - Plan Physical Exam: General: Alert, In no apparent distress, Oriented x3 HEENT: Atraumatic, Normocephalic Neck: Supple, 2+ carotid pulse no bruit Respiratory: Clear to auscultation bilaterally, Normal air movement Cardiovascular: No edema, Normal pulses Capillary refill: <2 Seconds Gastrointestinal: Normal bowel sounds, Hypoactive Musculoskeletal: Other (Left Charcot foot changes, diabetic ulcer 2 plantar aspect and lateral aspect of left foot.) Assessment/plan Vancomycin induced renal toxicity Patient presented with abnormal labs from home health obtained on 06/18. Creatinine was found to be 3.12, patient's baseline creatinine is 1.2. Vancomycin trough taken on 06/21 was 35.8. Trough taken on 06/24 30.9. Vancomycin has been discontinued. Patient was on a combination of vancomycin an d cefepime to treat her right diabetic foot ulcer with superimposed cellulitis. Nephrology on board. Patient may need transient dialysis. Chronic right diabetic foot ulcer with history of osteomyelitis Continue current wound care: Apply Medihoney and cover with foam. Patient has history of osteomyelitis in that foot, however MRI performed on 06/03 showed no signs of osteomyelitis. Patient's has been on combination of vancomycin and cefepime from 06/03 through 06/21. Diabetes Continue SSI Protein caloric malnutrition Recommend supplemental Ensure protein drinks Anemia of chronic disease Continue to monitor H&H Medical management per primary team Continue monitor CBC and BMP Continue monitor for signs of infection Plan of care discussed with Dr. brewer Thank you for consultation Physician Review: Patient Assessed, Agree with Above Assessment and Plan
[2021-06-24] MEDS: MEDIHONEY 44 ML TOPICAL TUBE TOP SCH (17:47)
--- NOTE | 2021-06-24 20:18 | P.PN ---
Date of Service: 06/24/21 Vital Signs Temp Pulse Resp BP Pulse Ox 96.8 F 73 18 126/89 97 06/24/21 16:00 06/24/21 17:46 06/24/21 16:00 06/24/21 17:46 06/24/21 16:00 Medications Acetaminophen (Acetaminophen 500 Mg Tab) 500 mg PO Q4HP PRN PRN Reason: TEMP > 100' F Hydrocodone Bitart/Acetaminophen (Hydrocodone/Apap 7.5/325 Mg Tab) 1 tab PO Q6H PRN PRN Reason: Pain scale 5-7 (Moderate) Last Admin: 06/22/21 16:04 Dose: 1 tab Documented by: Aspirin (Aspirin 81 Mg Chewable Tablet) 81 mg PO DAILY [facility] Last Admin: 06/24/21 09:36 Dose: 81 mg Documented by: Atorvastatin Calcium (Atorvastatin 10 Mg Tab) 10 mg PO DAILY [facility] Last Admin: 06/24/21 09:37 Dose: 10 mg Documented by: Calcitriol (Calcitrol 0.25 Mcg Cap) 0.5 mcg PO DAILY [facility] Last Admin: 06/24/21 09:36 Dose: 0.5 mcg Documented by: Cholecalciferol (Vitamin D 5,000 Unit Cap) 5,000 unit PO DAILY [facility] Last Admin: 06/24/21 09:36 Dose: 5,000 unit Documented by: Clopidogrel Bisulfate (Clopidogrel 75 Mg Tablet) 75 mg PO DAILY [facility] Last Admin: 06/24/21 09:36 Dose: 75 mg Documented by: Emollient Gel (Medihoney 44 Ml Topical Tube) 1 appl TOP DAILY [facility] Last Admin: 06/24/21 17:47 Dose: 1 appl Documented by: Furosemide (Furosemide 40 Mg Tablet) 40 mg PO BIDL [facility] Last Admin: 06/24/21 17:46 Dose: 40 mg Documented by: Heparin Sodium (Porcine) (Heparin 5000 Unit/Ml 1 Ml Vial) 5,000 unit SQ Q8HR [facility] Last Admin: 06/24/21 17:46 Dose: 5,000 unit Documented by: Insulin Human Regular (Insulin -Regular Human 50 Unit/0.5 Ml Ml) 0 unit SQ ACHS [facility]; Protocol Last Admin: 06/24/21 16:05 Dose: Not Given Documented by: Labetalol HCl (Labetalol 20 Mg/4ml Syringe) 10 mg IV Q6H PRN PRN Reason: SBP>160 Metoprolol Tartrate (Metoprolol Tar 50 Mg Tab) 50 mg PO BID [facility] Last Admin: 06/24/21 09:37 Dose: 50 mg Documented by: Ondansetron HCl (Ondansetron 4 Mg/2 Ml Vial) 4 mg IV Q6HP PRN PRN Reason: NAUSEA / VOMITING Last Admin: 06/22/21 23:29 Dose: 4 mg Documented by: Pregabalin (Pregabalin 75 Mg Cap) 75 mg PO BID [facility] Last Admin: 06/24/21 09:37 Dose: 75 mg Documented by: Sodium Chloride (Flush Normal Saline 10 Ml) 10 ml IV BID [facility] Last Admin: 06/24/21 09:36 Dose: 10 ml Documented by: Sodium Chloride (Sodium Chloride 0.9% 10ml Inj) 10 ml IV UD PRN PRN Reason: Diluant Last Admin: 06/22/21 16:09 Dose: 10 ml Documented by: Assessment/ Plan: Nephrology Progress Note Doing well. Good urine output. No chest pain or dyspnea No acute events overnight Vitals, medications blood work and imaging reviewed in the chart General: In no apparent distress, Oriented x3, Cooperative HEENT: Atraumatic Neck: Supple Respiratory: Clear to auscultation bilaterally Cardiovascular: Regular rate/rhythm, Edema Gastrointestinal: Soft and benign, Non-distended Musculoskeletal: No clubbing, No contractures Integumentary: No rashes, No cyanosis Neurological: Normal speech Blood work reviewed in the chart. Imagings Data: EXAM DESCRIPTION: RAD - Chest Single View - 06/08/2021 4:06 pm CLINICAL HISTORY: PICC line placement COMPARISON: Portable chest same date FINDINGS: Portable chest was obtained following placement of a right upper extremity PICC line. The catheter tip is in the mid SVC, good positioning. Conclusions/Impression: CODI likely due to vancomycin CKD III with proteinuria -No NSAIDs -Hold vancomycin Hypocalcemia -Continue Vitamin D HTN with CKD/ CHF -Continue Metoprolol Diastolic CHF, chronic LE Edema -Low sodium diet -Lasix 40mg BID DM II with CKD & Polyneuropathy Right DM foot ulcer with osteomyelitis -RISS -Continue Lyrica Moderate malnutrition -Encourage nutrition Anemia in chronic illness -Continue Retacrit Case discussed with Jeremy Charles and Dr. Macias
[2021-06-25] MEDS: HEPARIN 5000 UNIT/ML 1 ML VIAL SQ SCH ×3 (00:23→17:46)
[2021-06-25 05:35] LABS: Absolute Lymphocytes (CBC) 1.7 K/uL (0.7-4.9); Basophils % 1.1 % (0-1.3); Hematocrit 23.8 % (36.0-45.0); Lymphocytes % 28.5 % (15.3-44.8); MPV 8.9 fL (7.6-11.3); RBC Red Blood Cell Count 2.93 M/uL (3.86-4.86)
[2021-06-25 05:46] LABS: Albumin 2.7 g/dL (3.4-5.0); Bilirubin Total 0.2 mg/dL (0.2-1.0); Potassium 4.6 mmol/L (3.5-5.1)
[2021-06-25] MEDS: INSULIN -REGULAR HUMAN 50 UNIT/0.5 ML ML SQ SCH ×4 (07:30→20:57)
--- NOTE | 2021-06-25 07:48 | P.PN ---
Subjective Date of Service: 06/25/21 Chief Complaint: CODI Subjective: Worsening Review of Systems 10-point ROS is otherwise unremarkable Physical Examination - Vital Signs Temperature: 97 F Blood Pressure: 118/56 Pulse: 69 Respirations: 18 Pulse Ox (%): 98 - Physical Exam General: Alert, In no apparent distress HEENT: Atraumatic, PERRLA, EOMI Neck: Supple, JVD not distended Respiratory: Clear to auscultation bilaterally, Normal air movement Cardiovascular: Regular rate/rhythm, Normal S1 S2 Gastrointestinal: Normal bowel sounds, No tenderness Musculoskeletal: No tenderness Integumentary: No rashes Neurological: Normal speech, Normal tone, Normal affect Lymphatics: No axilla or inguinal lymphadenopathy - Studies Medications List Reviewed: Yes Assessment & Plan - Problems (Diagnosis) (1) Vancomycin adverse reaction Current Visit: Yes Status: Acute Plan: Patient is here with elevated vancomycin onn admission. Qualifiers: Encounter type: subsequent encounter Qualified Code(s): T36.8X5D - Adverse effect of other systemic antibiotics, subsequent encounter (2) Acute kidney failure Current Visit: Yes Status: Acute Plan: Patient has very poor kidney function. She will hopefully improve. will order routine labs on the patient 06/25. Worsening kidney function. Will recheck a vancomycin level. When her creatine starts trending down we can discharge her with recurrent blood work. Will need to dc the picc line on discharge. Qualifiers: Acute renal failure type: unspecified Qualified Code(s): N17.9 - Acute kidney failure, unspecified (3) Diastolic CHF Current Visit: Yes Status: Acute Plan: curriently stable. will continue following her volume status Qualifiers: Heart failure chronicity: chronic Qualified Code(s): I50.32 - Chronic diastolic (congestive) heart failure (4) Type 2 diabetes mellitus with foot ulcer Current Visit: No Status: Chronic Plan: will continue home insulin and follow as needed. Qualifiers: Diabetes mellitus exterminator helper termite insulin use: with exterminator helper termite use - Code Status/Comfort Care Code Status Assessed: Yes Code Status: Full Code Physician Review: Patient Assessed, Agree with Above Assessment and Plan Critical Care: No Time Spent Managing Pts Care (In Minutes): 20
[2021-06-25] MEDS: VITAMIN D 5,000 UNIT CAP PO SCH (08:51)
[2021-06-25] MEDS: SEVELAMER CARBONATE 800 MG TABLET PO SCH ×3 (08:52→17:00)
[2021-06-25] MEDS: ASPIRIN 81 MG CHEWABLE TABLET PO SCH (08:52)
[2021-06-25] MEDS: CLOPIDOGREL 75 MG TABLET PO SCH (08:52)
[2021-06-25] MEDS: PREGABALIN 75 MG CAP PO SCH ×2 (08:52→20:58)
[2021-06-25] MEDS: CALCITROL 0.25 MCG CAP PO SCH (08:52)
[2021-06-25] MEDS: MEDIHONEY 44 ML TOPICAL TUBE TOP SCH (08:53)
[2021-06-25] MEDS: FUROSEMIDE 40 MG TABLET PO SCH (08:53)
[2021-06-25] MEDS: METOPROLOL TAR 50 MG TAB PO SCH ×2 (08:53→20:33)
[2021-06-25] MEDS: ATORVASTATIN 10 MG TAB PO SCH (08:53)
--- NOTE | 2021-06-25 12:17 | P.PN ---
Subjective Date of Service: 06/25/21 Chief Complaint: CODI Patient seen examined at bedside, creatinine worsening. Review of Systems 10-point ROS is otherwise unremarkable Physical Examination - Vital Signs Temperature: 97.1 F Blood Pressure: 118/56 Pulse: 69 Respirations: 18 Pulse Ox (%): 96 - Studies Laboratory Last Values WBC 7.20 K/uL (4.3-10.9) 06/21/21 11:46 RBC 3.01 M/uL (3.86-4.86) L 06/21/21 11:46 Hgb 7.9 g/dL (12.0-15.0) L 06/21/21 11:46 Hct 25.0 % (36.0-45.0) L 06/21/21 11:46 MCV 83.0 fL (80-100) 06/21/21 11:46 MCH 26.4 pg (27.0-35.0) L 06/21/21 11:46 MCHC 31.8 g/dL (32.0-36.0) L 06/21/21 11:46 RDW 15.4 % (12.1-15.2) H 06/21/21 11:46 Plt Count 229 K/uL (152-406) 06/21/21 11:46 MPV 8.7 fL (7.6-11.3) 06/21/21 11:46 Neutrophils % 67.4 % (41.7-73.7) 06/21/21 11:46 Lymphocytes % 12.5 % (15.3-44.8) L 06/21/21 11:46 Monocytes % 7.3 % (3.3-12.3) 06/21/21 11:46 Eosinophils % 11.7 % (0-4.4) H 06/21/21 11:46 Basophils % 1.1 % (0-1.3) 06/21/21 11:46 Absolute Neutrophils 4.8 K/uL (1.8-8.0) 06/21/21 11:46 Absolute Lymphocytes 0.9 K/uL (0.7-4.9) 06/21/21 11:46 Absolute Monocytes 0.5 K/uL (0.1-1.3) 06/21/21 11:46 Absolute Eosinophils 0.8 K/uL (0-0.5) H 06/21/21 11:46 Absolute Basophils 0.1 K/uL (0-0.5) 06/21/21 11:46 Sodium 136 mmol/L (136-145) 06/21/21 11:46 Potassium 4.9 mmol/L (3.5-5.1) 06/21/21 11:46 Chloride 105 mmol/L (98-107) 06/21/21 11:46 Carbon Dioxide 21 mmol/L (21-32) 06/21/21 11:46 BUN 77 mg/dL (7-18) H 06/21/21 11:46 Creatinine 3.98 mg/dL (0.55-1.3) H 06/21/21 11:46 Estimated GFR 11 mL/min (=/>90) L 06/21/21 11:46 Glucose 182 mg/dL (74-106) H 06/21/21 11:46 Calcium 8.3 mg/dL (8.5-10.1) L 06/21/21 11:46 Total Bilirubin 0.3 mg/dL (0.2-1.0) 06/21/21 11:46 Direct Bilirubin 0.1 mg/dL (0-0.2) 06/21/21 11:46 AST 17 U/L (15-37) 06/21/21 11:46 ALT 22 U/L (12-78) 06/21/21 11:46 Alkaline Phosphatase 103 U/L (45-117) 06/21/21 11:46 Serum Total Protein 7.6 g/dL (6.4-8.2) 06/21/21 11:46 Albumin 2.8 g/dL (3.4-5.0) L 06/21/21 11:46 Globulin 4.8 g/dL (2.3-3.5) H 06/21/21 11:46 Albumin/Globulin Ratio 0.6 (1.1-1.8) L 06/21/21 11:46 SARS-CoV-2 Rap RNA(RT-PCR) Negative (NEGATIVE) 06/21/21 12:30 Medications List Reviewed: Yes Assessment And Plan - Plan Physical Exam: General: Alert, In no apparent distress, Oriented x3 HEENT: Atraumatic, Normocephalic Neck: Supple, 2+ carotid pulse no bruit Respiratory: Clear to auscultation bilaterally, Normal air movement Cardiovascular: No edema, Normal pulses Capillary refill: <2 Seconds Gastrointestinal: Normal bowel sounds, Hypoactive Musculoskeletal: Other (right Charcot foot changes, diabetic ulcer 2 plantar aspect and lateral aspect of the right foot.) Assessment/plan Vancomycin induced renal toxicity Patient presented with abnormal labs from home health obtained on 06/18. Creatinine was found to be 3.12, patient's baseline creatinine is 1.2. Vancomycin trough taken on 06/21 was 35.8. Trough taken on 06/24 30.9. Vancomycin has been discontinued. Patient was on a combination of vancomycin and cefepime to treat her right diabetic foot ulcer with superimposed cellulitis. Nephrology on board. Patient may need transient dialysis. Chronic right diabetic foot ulcer with history of osteomyelitis Continue current wound care: Apply Medihoney and cover with foam. Patient has history of osteomyelitis in that foot, however MRI performed on 06/03 showed no signs of osteomyelitis. Patient's has been on combination of vancomycin and cefepime from 06/03 through 06/21. Diabetes Continue SSI Protein caloric malnutrition Recommend supplemental Ensure protein drinks Anemia of chronic disease Continue to monitor H&H Medical management per primary team Continue monitor CBC and BMP Continue monitor for signs of infection Plan of care discussed with Dr. brewer Thank you for consultation Physician Review: Patient Assessed, Agree with Above Assessment and Plan
[2021-06-25] MEDS ORDERED: EPOETIN ALFA-EPBX 10,000 UNIT/ML VIAL SQ ONE ×2 (13:16→17:00)
[2021-06-25] MEDS: EPOETIN ALFA-EPBX 4,000 UNIT/ML VIAL SQ SCH (17:00)
[2021-06-25] MEDS: SODIUM CHLORIDE 0.9% 10ML INJ IV PRN (20:34)
[2021-06-25] MEDS ORDERED: MAGNES/ALUMIN/SIMET 30ML UCUP PO PRN (20:39)
--- NOTE | 2021-06-25 21:05 | P.PN ---
Date of Service: 06/25/21 Vital Signs Temp Pulse Resp BP Pulse Ox 97.9 F 75 18 131/84 97 06/25/21 16:00 06/25/21 20:33 06/25/21 16:00 06/25/21 20:33 06/25/21 16:00 Medications Acetaminophen (Acetaminophen 500 Mg Tab) 500 mg PO Q4HP PRN PRN Reason: TEMP > 100' F Hydrocodone Bitart/Acetaminophen (Hydrocodone/Apap 7.5/325 Mg Tab) 1 tab PO Q6H PRN PRN Reason: Pain scale 5-7 (Moderate) Last Admin: 06/22/21 16:04 Dose: 1 tab Documented by: Al Hydrox/Mg Hydrox/Simethicone (Magnes/Alumin/Simet 30ml Ucup) 15 ml PO QID PRN PRN Reason: INDIGESTION Aspirin (Aspirin 81 Mg Chewable Tablet) 81 mg PO DAILY [facility] Last Admin: 06/25/21 08:52 Dose: 81 mg Documented by: Atorvastatin Calcium (Atorvastatin 10 Mg Tab) 10 mg PO DAILY [facility] Last Admin: 06/25/21 08:53 Dose: 10 mg Documented by: Calcitriol (Calcitrol 0.25 Mcg Cap) 0.5 mcg PO DAILY [facility] Last Admin: 06/25/21 08:52 Dose: 0.5 mcg Documented by: Cholecalciferol (Vitamin D 5,000 Unit Cap) 5,000 unit PO DAILY [facility] Last Admin: 06/25/21 08:51 Dose: 5,000 unit Documented by: Clopidogrel Bisulfate (Clopidogrel 75 Mg Tablet) 75 mg PO DAILY [facility] Last Admin: 06/25/21 08:52 Dose: 75 mg Documented by: Emollient Gel (Medihoney 44 Ml Topical Tube) 1 appl TOP DAILY [facility] Last Admin: 06/25/21 08:53 Dose: 1 appl Documented by: Heparin Sodium (Porcine) (Heparin 5000 Unit/Ml 1 Ml Vial) 5,000 unit SQ Q8HR [facility] Last Admin: 06/25/21 17:46 Dose: 5,000 unit Documented by: Insulin Human Regular (Insulin -Regular Human 50 Unit/0.5 Ml Ml) 0 unit SQ ACHS [facility]; Protocol Last Admin: 06/25/21 17:46 Dose: 4 unit Documented by: Labetalol HCl (Labetalol 20 Mg/4ml Syringe) 10 mg IV Q6H PRN PRN Reason: SBP>160 Metoprolol Tartrate (Metoprolol Tar 50 Mg Tab) 50 mg PO BID [facility] Last Admin: 06/25/21 20:33 Dose: 50 mg Documented by: Ondansetron HCl (Ondansetron 4 Mg/2 Ml Vial) 4 mg IV Q6HP PRN PRN Reason: NAUSEA / VOMITING Last Admin: 06/22/21 23:29 Dose: 4 mg Documented by: Pregabalin (Pregabalin 75 Mg Cap) 75 mg PO BID [facility] Last Admin: 06/25/21 08:52 Dose: 75 mg Documented by: Sevelamer Carbonate (Sevelamer Carbonate 800 Mg Tablet) 800 mg PO TIDWM [facility] Last Admin: 06/25/21 17:00 Dose: 800 mg Documented by: Sodium Chloride (Flush Normal Saline 10 Ml) 10 ml IV BID [facility] Last Admin: 06/25/21 08:53 Dose: 10 ml Documented by: Sodium Chloride (Sodium Chloride 0.9% 10ml Inj) 10 ml IV UD PRN PRN Reason: Diluant Last Admin: 06/25/21 20:34 Dose: 10 ml Documented by: Assessment/ Plan: Nephrology Progress Note Doing well. Good urine output. No chest pain or dyspnea No acute events overnight Vitals, medications blood work and imaging reviewed in the chart General: In no apparent distress, Oriented x3, Cooperative HEENT: Atraumatic Neck: Supple Respiratory: Clear to auscultation bilaterally Cardiovascular: Regular rate/rhythm, Edema Gastrointestinal: Soft and benign, Non-distended Musculoskeletal: No clubbing, No contractures Integumentary: No rashes, No cyanosis Neurological: Normal speech Blood work reviewed in the chart. Imagings Data: EXAM DESCRIPTION: RAD - Chest Single View - 06/08/2021 4:06 pm CLINICAL HISTORY: PICC line placement COMPARISON: Portable chest same date FINDINGS: Portable chest was obtained following placement of a right upper extremity PICC line. The catheter tip is in the mid SVC, good positioning. 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 Macias
[2021-06-26] MEDS: FAMOTIDINE 20 MG TAB PO SCH ×2 (00:08→09:13)
[2021-06-26] MEDS: HEPARIN 5000 UNIT/ML 1 ML VIAL SQ SCH ×3 (01:14→16:50)
[2021-06-26 06:26] LABS: Absolute Lymphocytes (CBC) 1.6 K/uL (0.7-4.9); Basophils % 1.3 % (0-1.3); Hematocrit 24.9 % (36.0-45.0); Lymphocytes % 25.3 % (15.3-44.8); RBC Red Blood Cell Count 3.05 M/uL (3.86-4.86)
[2021-06-26 06:37] LABS: Albumin 2.9 g/dL (3.4-5.0); Bilirubin Total 0.3 mg/dL (0.2-1.0); Potassium 4.5 mmol/L (3.5-5.1); Protein, Total 7.2 g/dL (6.4-8.2)
[2021-06-26] MEDS: INSULIN -REGULAR HUMAN 50 UNIT/0.5 ML ML SQ SCH ×4 (07:30→21:12)
[2021-06-26] MEDS: MEDIHONEY 44 ML TOPICAL TUBE TOP SCH (09:00)
[2021-06-26] MEDS: PREGABALIN 75 MG CAP PO SCH ×2 (09:00→21:00)
[2021-06-26] MEDS: SEVELAMER CARBONATE 800 MG TABLET PO SCH ×3 (09:13→16:50)
[2021-06-26] MEDS: CALCITROL 0.25 MCG CAP PO SCH (09:13)
[2021-06-26] MEDS: VITAMIN D 5,000 UNIT CAP PO SCH (09:13)
[2021-06-26] MEDS: ASPIRIN 81 MG CHEWABLE TABLET PO SCH (09:13)
[2021-06-26] MEDS: ATORVASTATIN 10 MG TAB PO SCH (09:14)
[2021-06-26] MEDS: METOPROLOL TAR 50 MG TAB PO SCH ×2 (09:14→21:13)
[2021-06-26] MEDS: CLOPIDOGREL 75 MG TABLET PO SCH (09:14)
--- NOTE | 2021-06-26 10:35 | P.PN ---
Date of Service: 06/26/21 Subjective Patient clinically doing well with no new complaints. Renal function is improving. No urgency on dialysis at this point. Urine output adequate. Review of Systems 10-point ROS is otherwise unremarkable Physical Examination - Vital Signs Reviewed - Physical Exam General: Alert, In no apparent distress, Oriented x3 Respiratory: Clear to auscultation bilaterally, Normal air movement, Crackles/rales Cardiovascular: Regular rate/rhythm, Normal S1 S2, Systolic murmur Gastrointestinal: Normal bowel sounds, Soft and benign, Non-distended, No tenderness Musculoskeletal: No clubbing, No swelling, No tenderness Neurological: Sensation intact, Cranial nerves 3-12 intact - Studies Medications List Reviewed: Yes Assessment & Plan - Problems (Diagnosis) (1) CKD (chronic kidney disease) stage 3, GFR 30-59 ml/min Current Visit: No Status: Acute (2) Chronic anemia Current Visit: No Status: Acute (3) Diabetic foot ulcer Current Visit: No Status: Acute Qualifiers: Diabetic foot ulcer location: toe Diabetes mellitus type: type 2 Laterality: right Non-pressure ulcer stage: with necrosis of muscle Qualified Code(s): E11.621 - Type 2 diabetes mellitus with foot ulcer; L97.513 - Non-pressure chronic ulcer of other part of right foot with necrosis of muscle (4) MRSA (methicillin resistant staph aureus) culture positive Current Visit: No Status: Acute (5) CAD (coronary artery disease) Onset Date: 05/26/16 Current Visit: No Status: Chronic Qualifiers: (6) HTN (hypertension) Onset Date: 05/26/16 Current Visit: No Status: Chronic Qualifiers: Hypertension type: essential hypertension (7) Hyperlipidemia Onset Date: 09/05/18 Current Visit: No Status: Chronic Qualifiers: Hyperlipidemia type: mixed hyperlipidemia Qualified Code(s): E78.2 - Mixed hyperlipidemia (8) Type 2 diabetes mellitus without complications Onset Date: 09/05/18 Current Visit: No Status: Chronic Qualifiers: - Plan Continue with plan of care as mentioned below: 1. With hydration patient renal function continues to improve. Continue monitoring closely. 2. Appreciate wound healing consultation 3. Nephrology consultation & infectious disease consultation 4. Continue with IV antibiotic 5. Continue with local wound care 6. Monitor blood pressure closely 7. Continue monitoring labs; uremia worsening. Creatinine improved. Also anemic and will monitor H&H 8. Strict blood sugar monitoring 9. Pain control 10. GI and DVT prophylaxis Discharge Plan: Home Plan to discharge in: Greater than 2 days - Advance Directives Does patient have a Living Will: No Does patient have a Durable POA for Healthcare: No - Code Status/Comfort Care Code Status: Full Code Physician Review: Patient Assessed, Agree with Above Assessment and Plan Critical Care: No Time Spent Managing PTS Care (In Minutes): 35
--- NOTE | 2021-06-26 15:21 | PN ---
Subjective: The patient seen at [facility] in [place] on second floor in room 216. The patient is alert, awake, and comfortable. Dr. Gates, the hospitalist, was also in the room with me. The patient evaluated and examined. Objective: Vital Signs: Stable. Blood pressure between 100 to 130. Last blood pressure reading sy stolic was 112, blood pressure is 112/55, pulse in the 70 range and regular, and O2 sats are 100% on room air. Lungs: Clear. Abdomen: Soft. Extremities: Reveal no edema. Cardiac: Heart sounds are regular. Laboratory Data: Reviewed. Labs show WBC count of 6.5, hemoglobin stable at 8, hematocrit stable at 24.9, and platelet count is 216. Chemistry shows sodium 135, potassium 4.5, chloride 100, bicarb is 25, BUN is 99, creatinine 4.52, and glucose 96. The patient has had adequate urine output about 70 to 100 cc an hour. Glucose range of about 150 to 200. Last glucose was about 186. Albumin level at 2.9. Assessment And Plan: The patient with acute kidney injury on question of some chronic kidney injury in the past. The patient is alert, awake, comfortable. Volume status is close to euvolemic. Creati nine is improving, slowly coming down. Likely ATN in the setting of antibiotic use in the past. The patient is overall improved and further improvement over the next few days. If blood pressure stays low or drops any further, may benefit from gentle IV infusion of half-normal saline D5 at 75 cc/hour for about a 500 cc to 1 L infusion. In the meanwhile, the patient may be just able to keep her volu me status improved with better p.o. intake. She is taking some p.o. intake now and perhaps will be improved just with that. Continue to monitor BMP and do not anticipate any need for acute dialysis at this point. /CHRIS Voice ID: [id number] Report ID: [id number]
[2021-06-26] MEDS ORDERED: CALCIUM CARBONATE CHEW 500MG TAB PO PRN (16:11)
--- NOTE | 2021-06-26 19:22 | PN ---
Subjective: The patient feels better. Made 800 cc of urine this morning in 12 hours. Her creatinin e is 4.55. Denies any headache, nausea, vomiting, chest pain, abdominal pain, constipation, or diarr hea. Objective: Vital Signs: Temperature 97, pulse 72, respirations 18, blood pressure 127/65. Lungs: Basal crackles. Heart: S1, S2 regular. Abdomen: Soft, nontender. Bowel sounds present. Extremities: No edema. Laboratory Data: Sodium 134, potassium 5, chloride 99, bicarb 25, BUN 82, creatinine 4.52, glucose i s 96, albumin is 2.9. Assessment And Plan: Diabetic foot ulcer, acute renal failure secondary to medication. Continue hyd ration and monitor urine output. The patient's kidneys have slightly improved. Continue supportive care. We will follow the patient as needed. No antibiotic at this time. We will schedule the patie nt for debridement of the callus on the right plantar area as outpatient. We will follow the patient as needed. NF/MODL Voice ID: [id number] Report ID: [id number]
[2021-06-27] MEDS: HEPARIN 5000 UNIT/ML 1 ML VIAL SQ SCH ×3 (01:00→17:17)
[2021-06-27 04:38] LABS: Absolute Lymphocytes (CBC) 1.5 K/uL (0.7-4.9); Basophils % 1.1 % (0-1.3); Lymphocytes % 22.1 % (15.3-44.8); MPV 8.7 fL (7.6-11.3); RBC Red Blood Cell Count 3.08 M/uL (3.86-4.86)
[2021-06-27 04:43] LABS: Magnesium 2.5 mg/dL (1.8-2.4); Potassium 4.5 mmol/L (3.5-5.1)
[2021-06-27] MEDS: INSULIN -REGULAR HUMAN 50 UNIT/0.5 ML ML SQ SCH ×4 (07:30→21:00)
[2021-06-27] MEDS: PREGABALIN 75 MG CAP PO SCH ×2 (09:00→21:00)
[2021-06-27] MEDS: MEDIHONEY 44 ML TOPICAL TUBE TOP SCH (09:00)
[2021-06-27] MEDS: SEVELAMER CARBONATE 800 MG TABLET PO SCH ×3 (09:16→17:17)
[2021-06-27] MEDS: ASPIRIN 81 MG CHEWABLE TABLET PO SCH (09:17)
[2021-06-27] MEDS: CLOPIDOGREL 75 MG TABLET PO SCH (09:17)
[2021-06-27] MEDS: METOPROLOL TAR 50 MG TAB PO SCH ×2 (09:17→21:01)
[2021-06-27] MEDS: ATORVASTATIN 10 MG TAB PO SCH (09:18)
[2021-06-27] MEDS: CALCITROL 0.25 MCG CAP PO SCH (09:18)
[2021-06-27] MEDS: VITAMIN D 5,000 UNIT CAP PO SCH (09:19)
[2021-06-27] MEDS: FAMOTIDINE 20 MG TAB PO SCH (09:20)
[2021-06-27 10:45] VITALS: O2SAT 98
[2021-06-28] MEDS: HEPARIN 5000 UNIT/ML 1 ML VIAL SQ SCH ×2 (00:22→09:02)
--- NOTE | 2021-06-28 02:57 | P.PN ---
Date of Service: 06/27/21 Subjective Patient is clinically doing well with no new complaints. Patient's renal function continues to improve. Spoke to Nephrology and patient should be able to discharge in the morning if renal function continues to improve. Can probably remove PICC lines and will speak to Infectious Disease about further antibiotic therapy. At this time patient appears to be fairly stable and should be able to discharge home if renal function continues to improve. Review of Systems 10-point ROS is otherwise unremarkable Physical Examination - Vital Signs Reviewed - Physical Exam General: Alert, In no apparent distress, Oriented x3 Respiratory: Clear to auscultation bilaterally, Normal air movement, Crackles/rales Cardiovascular: Regular rate/rhythm, Normal S1 S2, Systolic murmur Gastrointestinal: Normal bowel sounds, Soft and benign, Non-distended, No tenderness Musculoskeletal: No clubbing, No swelling, No tenderness Neurological: Sensation intact, Cranial nerves 3-12 intact - Studies Medications List Reviewed: Yes Assessment & Plan - Problems (Diagnosis) (1) CKD (chronic kidney disease) stage 3, GFR 30-59 ml/min Current Visit: No Status: Acute (2) Chronic anemia Current Visit: No Status: Acute (3) Diabetic foot ulcer Current Visit: No Status: Acute Qualifiers: Diabetic foot ulcer location: toe Diabetes mellitus type: type 2 Laterality: right Non-pressure ulcer stage: with necrosis of muscle Qualified Code(s): E11.621 - Type 2 diabetes mellitus with foot ulcer; L97.513 - Non-pressure chronic ulcer of other part of right foot with necrosis of muscle (4) MRSA (methicillin resistant staph aureus) culture positive Current Visit: No Status: Acute (5) CAD (coronary artery disease) Onset Date: 05/26/16 Current Visit: No Status: Chronic (6) HTN (hypertension) Onset Date: 05/26/16 Current Visit: No Status: Chronic Qualifiers: Hypertension type: essential hypertension (7) Hyperlipidemia Onset Date: 09/05/18 Current Visit: No Status: Chronic Qualifiers: Hyperlipidemia type: mixed hyperlipidemia Qualified Code(s): E78.2 - Mixed hyperlipidemia (8) Type 2 diabetes mellitus without complications Onset Date: 09/05/18 Current Visit: No Status: Chronic - Plan Continue with plan of care as mentioned below: 1. Renal function continues to improve. If continues to improve then discharge in a.m.. 2. Appreciate wound healing consultation 3. Nephrology consultation & infectious disease consultation appreciated 4. Repeat labs in the morning to monitor renal function 5. Continue with local wound care 6. Monitor blood pressure closely 7. Continue monitoring labs; uremia worsening. Creatinine improved. Also anemic and will monitor H&H 8. Strict blood sugar monitoring 9. Pain control 10. GI and DVT prophylaxis
[2021-06-28 03:44] LABS: Absolute Lymphocytes (CBC) 1.4 K/uL (0.7-4.9); Lymphocytes % 20.1 % (15.3-44.8); RBC Red Blood Cell Count 2.84 M/uL (3.86-4.86)
[2021-06-28 03:51] LABS: Magnesium 2.1 mg/dL (1.8-2.4); Potassium 4.4 mmol/L (3.5-5.1)
[2021-06-28] MEDS: INSULIN -REGULAR HUMAN 50 UNIT/0.5 ML ML SQ SCH ×2 (07:30→12:31)
[2021-06-28] MEDS: SEVELAMER CARBONATE 800 MG TABLET PO SCH ×2 (08:58→12:31)
[2021-06-28] MEDS: VITAMIN D 5,000 UNIT CAP PO SCH (08:59)
[2021-06-28] MEDS: ASPIRIN 81 MG CHEWABLE TABLET PO SCH (08:59)
[2021-06-28] MEDS: PREGABALIN 75 MG CAP PO SCH (08:59)
[2021-06-28] MEDS: FAMOTIDINE 20 MG TAB PO SCH (09:00)
[2021-06-28] MEDS: CLOPIDOGREL 75 MG TABLET PO SCH (09:00)
[2021-06-28] MEDS: METOPROLOL TAR 50 MG TAB PO SCH (09:00)
[2021-06-28] MEDS: ATORVASTATIN 10 MG TAB PO SCH (09:00)
[2021-06-28] MEDS: CALCITROL 0.25 MCG CAP PO SCH (09:00)
[2021-06-28] MEDS: MEDIHONEY 44 ML TOPICAL TUBE TOP SCH (09:01)
--- NOTE | 2021-06-28 12:45 | P.DS ---
Admission Date: 06/21/21 Discharge Date: 06/28/21 Primary Care Provider: none; Infectious disease-Dr. Lieberman; Nephrology-Dr. Millard Disposition: ROUTINE DISCHARGE Discharge Condition: GOOD Reason for Admission: CODI Consultations: Nephrology-Dr. Millard Procedures: COVID: Negative Medical problem List: Acute on chronic renal disease stage IV secondary to IV vancomycin Hypertension CAD with prior CABG Hyperlipidemia Diabetes mellitus type 2 Diabetic foot ulcer Brief History of Present Illness: 71-year-old female with history of diabetes mellitus type 2, hyperlipidemia, hypertension, CAD with prior CABG. Patient presented with abnormal lab. Patient found to have acute on chronic renal disease. This was noted by her infectious disease doctor. Patient had been treated with IV vancomycin for osteomyelitis. Patient had completed 2 weeks of IV antibiotic therapy. Patient denied any other issues. Patient admitted for treatment. Hospital Course: Patient presented with acute on chronic renal disease stage IV. Patient had abnormal renal function due to recent treatment on vancomycin. Patient was evaluated by nephrology. Nephrology recommended to discontinue vancomycin. Patient has improved. Patient without significant abnormality or symptoms clinically. Her creatinine and GFR have improved. Patient will be discharged home. Recommend follow-up with PCP within 1 week. Recommend follow-up with nephrology within 1 week. Recommend to recheck labBMP at that time to monitor her progress. Further adjustment in medication will be done by nephrology. Recommend future medications to be renally dosed. Recommend no use of nonsteroidal anti-inflammatories. At discharge she will continue with her medications as recommended by nephrology including Calcitrol 0.5 mcg daily, Tums 500 mg 4 times a day, vitamin D 5000 units daily, and Renvela 800 mg 1 pill 3 times a day. Patient with chronic diastolic CHF. At discharge patient will continue with her medicationLasix 40 mg 1 pill twice daily. Patient will no longer take Aldactone.. Patient with diabetes mellitus type 2. Recommend to hold Metformin due to acute on chronic renal disease. Recommend to continue diabetic diet. Recommend to monitor her blood sugars at least twice daily. Recommend to maintain blood sugar less than 140 fasting and less than 200 after meals. If blood sugars remain above 200 she is to contact nephrology for further recommendation. Recommend to recheck A1c every 3 months to monitor progress. Further adjustment can be done by nephrology. Patient with anemia of chronic disease. Patient will continue with Procrit. Recommend follow-up with nephrology to further monitor. Recommend to recheck labCBC in 1 to 2 weeks to monitor progress. Patient with CAD and prior CABG. Overall stable. Recommend follow-up with card iology as directed. At discharge she will continue with Plavix 75 mg daily. Patient with hypertension. At discharge she will continue with metoprolol 50 mg 1 pill twice daily. Recommend to maintain blood pressure less than 130/80. Further adjustment can be done by her PCP. Patient with chronic pain. At discharge she will continue with her medications including [place] and Lyrica as directed. Patient with hyperlipidemia. At discharge she will continue with pravastatin 40 mg daily. Patient with diabetic foot ulcer. Patient will no longer take IV vancomycin due to acute on chronic renal disease. Recommend follow-up with infectious disease as directed. Patient will continue with current wound care including Medihoney to the ulcer daily. Follow-up with infectious disease for further recommendations and monitoring. Vital Signs/Physical Exam: Temp Pulse Resp BP Pulse Ox 97.9 F 71 18 120/57 L 96 06/28/21 08:00 06/28/21 08:00 06/28/21 08:00 06/28/21 08:00 06/28/21 08:00 General: Alert, In no apparent distress, Oriented x3, Cooperative HEENT: Atraumatic Neck: Supple Respiratory: Clear to auscultation bilaterally Cardiovascular: Normal pulses, Regular rate/rhythm Gastrointestinal: Normal bowel sounds Integumentary: No tenderness/swelling Neurological: Normal speech, Normal strength at 5/5 x4 extr, Normal tone Laboratory Data at Discharge: WBC 6.90 K/uL (4.3-10.9) 06/28/21 03:00 Hgb 7.6 g/dL (12.0-15.0) L 06/28/21 03:00 Hct 23.0 % (36.0-45.0) L 06/28/21 03:00 Plt Count 199 K/uL (152-406) 06/28/21 03:00 Sodium 139 mmol/L (136-145) 06/28/21 03:00 Potassium 4.4 mmol/L (3.5-5.1) 06/28/21 03:00 BUN 97 mg/dL (7-18) H 06/28/21 03:00 Creatinine 4.00 mg/dL (0.55-1.3) H 06/28/21 03:00 Glucose 190 mg/dL (74-106) H 06/28/21 03:00 Uric Acid 7.5 mg/dL (2.6-6.0) H 06/24/21 05:23 Phosphorus 6.3 mg/dL (2.5-4.9) H 06/24/21 05:23 Magnesium 2.1 mg/dL (1.8-2.4) 06/28/21 03:00 Total Bilirubin 0.3 mg/dL (0.2-1.0) 06/26/21 05:26 AST 17 U/L (15-37) 06/26/21 05:26 ALT 22 U/L (12-78) 06/26/21 05:26 Alkaline Phosphatase 103 U/L (45-117) 06/26/21 05:26 Home Medications: Furosemide [Lasix*] 40 mg PO BID 05/11/16 Metoprolol Tartrate [Lopressor*] 50 mg PO BID 05/11/16 Pravastatin [Pravachol*] 40 mg PO DAILY 05/11/16 Pregabalin [Lyrica*] 75 mg PO BID 09/04/18 Cholecalciferol (Vitamin D3) [Vitamin D 5,000 IU Cap*] 5,000 unit PO DAILY #30 cap 06/08/21 Clopidogrel Bisulfate [Plavix*] 75 mg PO DAILY #30 tablet 06/08/21 Hydrocodone 7.5/APAP 325 [[place] 7.5/325 mg*] 1 tab PO Q6H PRN #30 tab 06/08/21 Medihoney [Medihoney Woundcare Gel*] 1 appl TOP DAILY #1 tube 06/08/21 Calcitrol [Rocaltrol*] 0.5 mcg PO DAILY #60 cap 06/28/21 Calcium Carbonate [Tums Regular*] 500 mg PO QID #90 tab 06/28/21 Sevelamer Carbonate [Renvela*] 800 mg PO TIDWM #90 tablet 06/28/21 New Medications: Sevelamer Carbonate [Renvela*] 800 mg PO TIDWM #90 tablet Calcitrol [Rocaltrol*] 0.5 mcg PO DAILY #60 cap Calcium Carbonate [Tums Regular*] 500 mg PO QID #90 tab Physician Discharge Instructions: Patient presented with acute on chronic renal disease stage IV. Patient had abnormal renal function due to recent treatment on vancomycin. Patient was evaluated by nephrology. Nephrology recommended to discontinue vancomycin. Patient has improved. Patient without significant abnormality or symptoms clinically. Her creatinine and GFR have improved. Patient will be discharged home. Recommend follow-up with PCP within 1 week. Recommend follow-up with nephrology within 1 week. Recommend to recheck labBMP at that time to monitor her progress. Further adjustment in medication will be done by nephrology. Recommend future medications to be renally dosed. Recommend no use of n onsteroidal anti-inflammatories. At discharge she will continue with her medications as recommended by nephrology including Calcitrol 0.5 mcg daily, Tums 500 mg 4 times a day, vitamin D 5000 units daily, and Renvela 800 mg 1 pill 3 times a day. Patient with chronic diastolic CHF. At discharge patient will continue with her medicationLasix 40 mg 1 pill twice daily. Patient will no longer take Aldactone.. Patient with diabetes mellitus type 2. Recommend to hold Metformin due to acute on chronic renal disease. Recommend to continue diabetic diet. Recommend to monitor her blood sugars at least twice daily. Recommend to maintain blood sugar less than 140 fasting and less than 200 after meals. If blood sugars remain above 200 she is to contact nephrology for further recommendation. Recommend to recheck A1c every 3 months to monitor progress. Further adjustment can be done by nephrology. Patient with anemia of chronic disease. Patient will continue with Procrit. Recommend follow-up with nephrology to further monitor. Recommend to recheck labCBC in 1 to 2 weeks to monitor progress. Patient with CAD and prior CABG. Overall stable. Recommend follow-up with cardiology as directed. At discharge she will continue with Plavix 75 mg daily. Patient with hypertension. At discharge she will continue with metoprolol 50 mg 1 pill twice daily. Recommend to maintain blood pressure less than 130/80. Further adjustment can be done by her PCP. Patient with chronic pain. At discharge she will continue with her medications including [place] and Lyrica as directed. Patient with hyperlipidemia. At discharge she will continue with pravastatin 40 mg daily. Patient with diabetic foot ulcer. Patient will no longer take IV vancomycin due to acute on chronic renal disease. Recommend follow-up with infectious disease as directed. Patient will continue with current wound care including Medihoney to the ulcer daily. Follow-up with infectious disease for further recom mendations and monitoring. Diet: ADA Activity: Ad riccardo Followup: OOTShayyOT [Primary Care Provider] - Time spent managing pt's care (in minutes): 55
[2021-06-28] MEDS ORDERED: EPOETIN ALFA-EPBX 10,000 UNIT/ML VIAL SQ ONE (14:00)
[2021-06-28 15:00] VITALS: BP 121/49; TEMP 97.1
[2021-06-29 17:47] LABS: HBsAG Nonreactive (Nonreactive)
== END 2021-06-28 14:50 | disposition home health service (06) | DRG 291 ==
LOC: ER 11:07 → ERHOLD 16:02 → 2ND 17:03
PROVIDERS: ADMIT Hospitalist; ATTEND Hospitalist
DX: I13.0 Hypertensive heart and chronic kidney disease with heart failure and stage 1 through stage 4 chronic kidney disease, or unspecified chronic kidney disease (principal); N17.0 Acute kidney failure with tubular necrosis; N18.4 Chronic kidney disease, stage 4 (severe); I50.32 Chronic diastolic (congestive) heart failure; N17.9 Acute kidney failure, unspecified; E44.0 Moderate protein-calorie malnutrition; E11.22 Type 2 diabetes mellitus with diabetic chronic kidney disease; E11.621 Type 2 diabetes mellitus with foot ulcer; L97.519 Non-pressure chronic ulcer of other part of right foot with unspecified severity; I25.10 Atherosclerotic heart disease of native coronary artery without angina pectoris; E78.5 Hyperlipidemia, unspecified; T36.8X5A Adverse effect of other systemic antibiotics, initial encounter; E83.51 Hypocalcemia; Z68.34 Body mass index [BMI] 34.0-34.9, adult; D63.8 Anemia in other chronic diseases classified elsewhere; G89.29 Other chronic pain; E11.42 Type 2 diabetes mellitus with diabetic polyneuropathy; Z95.1 Presence of aortocoronary bypass graft; Z20.822 Contact with and (suspected) exposure to COVID-19
CPT/HCPCS: 36415; 80048; 80053; 80076; 80202; 81003; 81015; 82947; 83735; 83880; 84100; 84145; 84439; 84443; 84550; 85025; 86317; 86704; 87040; 87340; 99283; C9113; J1644; J2405; J7030; Q5106; U0003

== ENCOUNTER 2021-11-22 13:41 | Emergency (ER) | payer OTHER ==
--- OUTSIDE RECORDS SUMMARY | 2021-11-22 13:43 | XMS REPORT | Continuity of Care Document ---
:1950 Author Organization [facility] t Address [address] [place] [address] Care Team Providers Name Role Phone BEN SOLIS Primary Care Physician Unavailable Kike SAMUEL Attending Clinician Unavailable Kike Samuel MD Attending Clinician Kim WEST, A Attending Clinician Unavailable MATA Attending Clinician Unavailable Chary Delgado Attending Clinician Mata COLLINS Attending Clinician Eber COLLINS Attending Clinician MATA Admitting Clinician Unavailable Mata COLLINS Admitting Clinician Payers Payer Name Policy Type Policy Number Effective Date Expiration Date [facility] [id number] 2017 DUAL COMPLETE HMO 00:00:00 [place]ID [place] [id number] 2018 00:00:00 [facility] [id number] Problems Condition Condition Condition Status Onset Resolution [...] 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 Ou tpati y of right y of right en t eye eye Clinics associated associated with type with type 2 diabetes 2 diabetes mellitus, mellitus, macular macular edema edema presence presence unspecifie unspecifie d d Traumatic Traumatic Problem Active [facility] ulcer, [facility] - limited to limited to Me moria breakdown breakdown l of skin of skin Outpati ent Clinics Encounter Encounter Problem Active [facility] for for [facility] - gynecologi gynecologi Me moria akhil akhil l examinatio examinatio Ou tpati n without n without ent abnormal abnormal Clinic s finding finding Postmenopa Postmenopa Problem Active [facility] usal usal [facility] Out[facility] ent Clinics Allergies, Adverse Reactions, Alerts Allergy Allergy Status Severity Reaction(s) Onset Inactive Treating Comm ents Source Name Type Date Date Clinician LEVOFLOX DRUG [facility] of 00:00: [address] Medications Ordered Filled Start Stop Current Ordering Indication Dosage Frequency Signature Comments Components Source Medication Medication Date Date Medication? Clinician (SIG) Name Name One Touch One Touch 2017-09 Yes Mo [address] [facility] Delica Delica 0-22 Colleen [facility] - Lancets Lancets 00:00: Memoria 00 l Outpati ent Clinics One Touch One Touch 2017-09- No Mo as [facility] Ultra Test Ultra Test 0-22 04-20 Colleen directed [facility] - Strips Strips 00:00: 00:00 Memoria 00 :00 l Outpati ent Clinics Lyrica Lyrica Yes Mo [address] 8-06 Colleen [facility] - 00:00: [facility] 00 l Outpati ent Clinics Metoprolol Metoprolol Yes Mo [address] [facility] Tartrate Tartrate Colleen with food L ukes - Memoria l Outpati ent Clinics Furosemide Furosemide Yes Mo [address] [facility] Colleen [facility] Metformin Metformin Yes Mo [address] [facility] HCl HCl Colleen with a [facility] - meal [facility] Clopidogrel Clopidogrel Yes Mo [address] [facility] Bisulfate Bisulfate Colleen [facility] - [facility] Outpat[facility] ent Clinics Pravastatin Pravastatin Yes Mo [address] [facility] Sodium Sodium Colleen [facility] Potassium Potassium Yes Mo [address] [facility] Chloride Chloride Colleen with food L ukes - Jackeline ER Jackeline ER [facility] Procedures This patient has no known procedures. Encounters Start End Encounter Admission Attending Care Care Encounter Source Date/Time Date/Time Type Type Clinicians Facility Department ID 2020-02-04 2020-02-04 [facility] [id number] [facility] 13:30:00 13:30:00 RANDI [facility] 2020-02-04 2020-02-04 Outpatient R [facility] [id number] Univers 13:30:00 13:30:00 RANDI [id number] [facility] 2020-02-04 2020-02-04 Telephone [facility] [id number] 00:00:00 00:00:00 Randi Matias [id number] [place] [id number] Professio [id number] [address] 2020-01-24 2020-01-24 Telephone [facility] [id number] 00:00:00 00:00:00 Randi Kike Polly [id number] [place] [id number] Professio [id number] [address] 2020-01-23 2020-01-23 Transition Karel Alvarez [id number] 00:00:00 00:00:00 of Care Jamir Britta Keating [id number] [place] [id number] [facility] 2020-01-20 2020-01-22 Inpatient X [facility]EN [facility] [id number] Univers 15:50:49 15:49:00 ity of [facility] 2020-01-20 2020-01-22 Hospital Ajay Fuentes RUST [id number] 15:50:49 15:49:00 Encounter Shaheen Rivera [id number] [place] [id number] [place] [id number] 2019-05-14 2019-05-14 Office Eber RUST [id number] 14:48:59 16:09:33 Visit Justina [place] [id number] [place] [id number] [facility] [id number] [address] 2019-01-23 2019-01-23 [facility] [id number] [address] 11:44:00 11:44:00 t [facility] 2019-01-03 2019-01-03 [facility] [id number] 13:39:00 13:39:00 t [facility] Clin[facility] 2018-09-20 2018-09-20 [facility] [id number] 09:51:00 09:51:00 t [facility] Clinics 2018-09-04 2018-09-04 [facility] [id number] [address] 15:15:00 15:15:00 t [facility] Clinics 2018-08-29 2018-08-29 [facility] [id number] 11:25:00 11:25:00 t [facility] Clinics 2018-07-09 2018-07-09 [facility] [id number] 15:30:00 15:30:00 t [facility] 2018-05-25 2018-05-25 [facility] [id number] [address] 16:23:00 16:23:[address] [facility] 2018-05-11 2018-05-11 [facility] [id number] 12:34:00 12:34:00 t [facility] 2018-04-24 2018-04-24 [facility] [id number] 10:45:00 10:45:[address] [facility] 2018-04-18 2018-04-18 [facility] [id number] [address] 15:42:00 15:42:[address] [facility] 2018-03-19 2018-03-19 Outpatient [place] [id number] [address] 13:45:00 13:45:[address] [facility] 2018-02-07 2018-02-07 [facility] [id number] 13:45:00 13:45:00 [facility] ent Clinics Results Test Description Test Time Test Comments Results Result Comments Source VANCOMYCIN TROUGH 2019-07-11 01:15:00 Test Item Value Reference Range Interpretation Comme nts VANCOMYCIN TROUGH (test code 17.5 ug/ml 10.0-20.0 N Please refer to Medication = VANCT) Administration Record (MAR) forlast dose da te and time. CBC W/AUTO [id number] 16:57:00 Test Item Value Reference Range Interpretation [...] 6.4-10.5 N (test code = MPV) WBC [id number] 16:57:00 Test Item Value Reference Range Interpretation [...] code = NORMAL NORMAL PLTMORPH) BASIC METABOLIC [id number] 16:16:00 Test Item Value Reference Range Interpretation [...] = 9.1 mg/dL 8.5-10.5 N CA) VANCOMYCIN [id number] 16:16:00 Test Item Value Reference Range Interpretation Comments VANCOMYCIN TROUGH 18.4 ug/ml 10.0-20.0 N Please ref er to (test code = VANCT) Medicati on Administration Record (MAR) forlast d ose date and time. CBC W/AUTO [id number] 16:00:00 Test Item Value Reference Range Interpretation [...] 7.9 fl 6.4-10.5 N = MPV) WBC [id number] 16:00:00 Test Item Value Reference Range Interpretation Comments TOTAL CELLS COUNTED (test code = TCC) #CELLS RBC MORPHOLOGY COMMENT (test code = NORMAL MOC) PLATELET MORPHOLOGY (test code = NORMAL PLTMORPH) CBC W/AUTO [id number] 16:00:00 Test Item Value Reference Range Interpretation [...] 7.9 fl 6.4-10.5 N = MPV) WBC [id number] 16:00:00 Test Item Value Reference Range Interpretation Comments TOTAL CELLS COUNTED (test code = TCC) #CELLS RBC MORPHOLOGY COMMENT (test code = NORMAL MOC) PLATELET MORPHOLOGY (test code = NORMAL PLTMORPH)"
[2021-11-22] MEDS ORDERED: FUROSEMIDE 20 MG/ 2ML VIAL ONE (15:11)
[2021-11-22 15:17] LABS: Hematocrit 28.5 % (36.0-45.0); Lymphocytes % 12.9 % (15.3-44.8); MPV 8.8 fL (7.6-11.3); RBC Red Blood Cell Count 3.71 M/uL (3.86-4.86)
[2021-11-22 15:19] LABS: Protime INR 1.28
[2021-11-22 15:35] LABS: Albumin 2.8 g/dL (3.4-5.0); Bilirubin Direct 0.2 mg/dL (0-0.2); Bilirubin Total 0.4 mg/dL (0.2-1.0); Magnesium 2.5 mg/dL (1.8-2.4); Potassium 4.6 mmol/L (3.5-5.1); Protein, Total 7.2 g/dL (6.4-8.2); Troponin High Sensitivity 24.9 pg/mL (<58.9)
--- NOTE | 2021-11-22 15:40 | RAD REPORT ---
EXAM DESCRIPTION: RAD - Chest Single View - 11/22/2021 3:34 pm CLINICAL HISTORY: SOB Chest pain. COMPARISON: Chest Single View dated 06/08/2021; Chest Single View dated 06/08/2021; Chest Single View dated 09/13/2019; Chest Single View dated 06/05/2019 FINDINGS: Portable technique limits examination quality. Moderate bilateral pulmonary opacities are present likely pulmonary edema. The heart is mildly modera tely enlarged. Sternotomy wires present. IMPRESSION: Moderate CHF.
--- NOTE | 2021-11-22 17:58 | RAD REPORT ---
EXAM DESCRIPTION: US - Extrem Venous W Compress Darrius - 11/22/2021 5:20 pm CLINICAL HISTORY: leg pain Bilateral leg edema and swelling. COMPARISON: <Comparisons> TECHNIQUE: Real-time sonographic interrogation of the left and right lower extremity deep venous sys tems was performed. FINDINGS: Normal compressibility, flow augmentation, phasic flow and spontaneous flow is identified in both the left and right lower extremity deep venous systems. IMPRESSION: No sonographic evidence of left or right lower extremity deep venous thrombosis.
--- NOTE | 2021-11-22 18:21 | EDPHYS ---
Physician Documentation [facility] Name: Mildred Kelly Age: 71 yrs Sex: Female : 1950 Arrival Date: 11/22/2021 Time: 13:42 Bed 16 Private MD: ED Physician Angie Sidhu HPI: 11/22 15:02 This 71 yrs old Female presents to ER via Wheelchair with complaints of Leg jmm Pain, Arm Pain. 15:02 The patient presents with swelling. Onset: The symptoms/episode began/occurred jmm gradually, 1 week(s) ago. This is a 71-year-old female with history of diabetes mellitus and peripheral edema the presents emerged part with complaints of shortness of breath and increased swelling in her legs over the past week. Patient denies fever, denies chest pain.. Historical: - Allergies: 13:52 Levaquin; ab2 - PMHx: 13:52 Diabetes mellitus; ab2 - PSHx: 13:52 None; ab2 - Immunization history:: Adult Immunizations up to date. - Social history:: Smoking status: Patient denies any tobacco usage or history of. ROS: 15:02 Constitutional: Negative for fever, chills, and weight loss, Cardiovascular: Negative jmm for chest pain, palpitations, and edema. 15:02 Respiratory: Positive for shortness of breath. 15:02 All other systems are negative. Exam: 15:02 Constitutional: This is a well developed, well nourished patient who is awake, alert, jmm and in no acute distress. Head/Face: atraumatic. Eyes: EOMI, no conjunctival erythema appreciated ENT: Moist Mucus Membranes Neck: Trachea midline, Supple Chest/axilla: Normal chest wall appearance and motion. Cardiovascular: Regular rate and rhythm. No edema appreciated Respiratory: Normal respirations, no respiratory distress appreciated Abdomen/GI: Non distended, soft Back: Normal ROM Skin: General appearance color normal 15:02 Musculoskeletal/extremity: Bilateral pedal edema appreciated, pitting 2+, full dorsalis pedis pulse bilaterally, neurovascular intact. 15:02 Skin: Appearance: Color: normal in color. 15:02 Neuro: Orientation: is normal, Mentation: is normal, Memory: is normal. 15:02 Psych: Behavior/mood is pleasant, cooperative. Vital Signs: 13:46 BP 118 / 74; Pulse 79; Resp 18; Temp 98.3(TE); Pulse Ox 100% on R/A; Weight 81.65 kg; ab2 Height 5 ft. 5 in. (165.10 cm); Pain 5/10; 14:40 BP 121 / 85; Pulse 73; Resp 20; Temp 97.8; Pulse Ox 100% ; cs9 18:17 Pulse 76; Resp 16; Pulse Ox 100% on R/A; ic1 18:31 BP 119 / 57; ic1 13:46 Body Mass Index 29.95 (81.65 kg, 165.10 cm) ab2 MDM: 15:03 Patient medically screened. [facility] 18:19 Data reviewed: vital signs, nurses notes. Counseling: I had a detailed discussion with camilo the patient and/or guardian regarding: the historical points, exam findings, and any diagnostic results supporting the discharge/admit diagnosis, lab results, radiology results, the need for outpatient follow up, to return to the emergency department if symptoms worsen or persist or if there are any questions or concerns that arise at home. Refusal of service: The patient/guardian displays adequate decision making capability and despite a detailed discussion of alternatives, benefits, risks, and consequences refuses: Admission to the hospital for further work-up and treatment. ED course: Patient has a preference to attempt outpatient therapy. Patient advised to double up her furosemide. Unable to give her an exact dose to take, patient does not know how much medication she takes. Patient's vital signs are normal. Patient is otherwise given strict return precautions. Patient understood agrees plan of care.. 11/22 15:05 Order name: Basic Metabolic Panel [facility] 11/22 15:05 Order name: CBC with Diff; Complete Time: 15:31 [facility] 11/22 15:05 Order name: LFT's [facility] 11/22 15:05 Order name: Magnesium; Complete Time: 15:50 [facility] 11/22 15:05 Order name: NT PRO-BNP; Complete Time: 15:50 [facility] 11/22 15:05 Order name: PT-INR; Complete Time: 15:31 [facility] 11/22 15:05 Order name: Troponin HS; Complete Time: 15:50 [facility] 11/22 15:05 Order name: XRAY Chest (1 view); Complete Time: 15:50 [facility] 11/22 15:05 Order name: EKG; Complete Time: 15:06 [facility] 11/22 15:05 Order name: Cardiac monitoring; Complete Time: 15:19 [facility] 11/22 15:06 Order name: Basic Metabolic Panel; Complete Time: 15:50 [facility] 11/22 15:06 Order name: Liver (Hepatic) Function; Complete Time: 15:50 [facility] 11/22 16:18 Order name: US Extremity Venous W Compression Darrius; Complete Time: 17:59 [facility] 11/22 15:05 Order name: EKG - Nurse/Tech; Complete Time: 15:05 [facility] 11/22 15:05 Order name: IV Saline Lock; Complete Time: 15:06 [facility] 11/22 15:05 Order name: Labs collected and sent; Complete Time: 15:06 [facility] 11/22 15:05 Order name: O2 Per Protocol [facility] 11/22 15:05 Order name: O2 Sat Monitoring; Complete Time: 15:06 [facility] Administered Medications: 15:19 Drug: Lasix (furosemide) 20 mg Route: IVP; Site: left antecubital; ic1 Disposition Summary: 11/22/21 18:20 Discharge Ordered Location: Home [facility] Condition: Stable [facility] Diagnosis - Peripheral Edema [facility] Followup: [facility] - With: Private Physician - When: 2 - 3 days - Reason: Recheck today's complaints, Continuance of care, Re-evaluation by your physician Discharge Instructions: - Discharge Summary Sheet [facility] - Peripheral Edema jm - Heart Failure Eating Plan [facility] Forms: - Medication Reconciliation Form [facility] - Thank You Letter [facility] - Antibiotic Education [facility] - Prescription Opioid Use [facility] Signatures: Dispatcher [employer] Aneudy Hou PA PA m Jyoti Baig, RN RN ic1 Marco Turcios2
--- NOTE | 2021-11-22 18:21 | ER ---
Nurse's Notes [facility] Name: Mildred Kelly Age: 71 yrs Sex: Female : 1950 Arrival Date: 11/22/2021 Time: 13:42 Bed 16 Private MD: Diagnosis: Peripheral Edema Presentation: 11/22 13:46 Chief complaint: Patient states: "I have a lot of pain in my legs and arms too. When I ab2 start to do any activity I get SOB. I am swollen and don't feel right in my body" Pt denies any trauma or injury to her extremities. Pt states she is only in pain when she walks. Coronavirus screen: Vaccine status: Patient reports receiving the 2nd dose of the covid vaccine. Client denies travel out of the [place] in the last 14 days. At this time, the client does not indicate any symptoms associated with coronavirus-19. Ebola Screen: Patient negative for fever greater than or equal to 101.5 degrees Fahrenheit, and additional compatible Ebola Virus Disease symptoms Patient denies exposure to infectious person. Patient denies travel to an Ebola-affected area in the 21 days before illness onset. No symptoms or risks identified at this time. Initial Sepsis Screen: Does the patient meet any 2 criteria? No. Patient's initial sepsis screen is negative. Does the patient have a suspected source of infection? No. Patient's initial sepsis screen is negative. Risk Assessment: Do you want to hurt yourself or someone else? Patient reports no desire to harm self or others. Onset of symptoms is unknown. 13:46 Method Of Arrival: Wheelchair ab2 13:53 Acuity: JANE 3 ab2 Triage Assessment: 13:54 General: Appears in no apparent distress. comfortable, Behavior is calm, cooperative, ab2 appropriate for age. Pain: Complains of pain in right arm, left arm, right leg and left leg Pain currently is 5 out of 10 on a pain scale. at worst was 10 out of 10 on a pain scale. Historical: - Allergies: 13:52 Levaquin; ab2 - PMHx: 13:52 Diabetes mellitus; ab2 - PSHx: 13:52 None; ab2 - Immunization history:: Adult Immunizations up to date. - Social history:: Smoking status: Patient denies any tobacco usage or history of. Screenin:44 Abuse screen: Denies threats or abuse. Denies injuries from another. Nutritional ic1 screening: No deficits noted. Tuberculosis screening: No symptoms or risk factors identified. Fall Risk No fall in past 12 months (0 pts). Secondary diagnosis (15 points) IV access (20 points). Ambulatory Aid- Crutches/Cane/Walker (15 pts). Gait- Weak (10 pts.). Mental Status- Oriented to own ability (0 pts). Total Alcantar Fall Scale indicates Low Risk Score (25-44 pts). Side Rails Up X 2 Placed close to Nursing Station Frequent Obs/Assesments occuring Family Present and informed to notify staff if they need to leave bedside As available Patient and Family Educated on Fall Prevention Program and strategies. Assessment: 14:44 General: Appears uncomfortable, Behavior is calm, cooperative. Pain: Complains of pain ic1 in right arm, left arm, right leg and left leg. Neuro: Level of Consciousness is awake, alert, obeys commands, Oriented to person, place, time, situation. Cardiovascular: Denies chest pain. Respiratory: Reports shortness of breath on exertion since x 1 mo ago, but states it worsening in the last few days. GI: No deficits noted. : No deficits noted. EENT: No deficits noted. Derm: No deficits noted. Musculoskeletal: No deficits noted. Reports. Vital Signs: 13:46 BP 118 / 74; Pulse 79; Resp 18; Temp 98.3(TE); Pulse Ox 100% on R/A; Weight 81.65 kg; ab2 Height 5 ft. 5 in. (165.10 cm); Pain 5/10; 14:40 BP 121 / 85; Pulse 73; Resp 20; Temp 97.8; Pulse Ox 100% ; cs9 18:17 Pulse 76; Resp 16; Pulse Ox 100% on R/A; ic1 18:31 BP 119 / 57; ic1 13:46 Body Mass Index 29.95 (81.65 kg, 165.10 cm) ab2 ED Course: 13:42 Patient arrived in ED. ds1 13:52 Triage completed. ab2 13:54 Arm band placed on right wrist. ab2 14:31 Aneudy Echeverria PA is PHCP. [facility] 14:31 Angie Sidhu MD is Attending Physician. [facility] 14:36 Jyoti Baig, RN is Primary Nurse. ic1 14:44 Patient has correct armband on for positive identification. Call light in reach. Adult ic1 w/ patient. 14:44 bus monitor on. Pulse ox on. NIBP on. Warm blanket given. ic1 14:44 No provider procedures requiring assistance completed. ic1 15:02 Inserted saline lock: 20 gauge in left antecubital area, using aseptic technique. Blood ic1 collected. 15:34 XRAY Chest (1 view) In Process Unspecified. EDMS 17:20 US Extremity Venous W Compression Darrius In Process Unspecified. EDMS 18:17 IV discontinued, intact, bleeding controlled, No redness/swelling at site. Pressure ic1 dressing applied. Administered Medications: 15:19 Drug: Lasix (furosemide) 20 mg Route: IVP; Site: left antecubital; ic1 Outcome: 18:16 Discharged to home via wheelchair, with family. ic1 18:16 Condition: stable 18:16 Discharge instructions given to patient, Instructed on discharge instructions, follow up and referral plans. Demonstrated understanding of instructions, follow-up care. 18:20 Discharge ordered by . [facility] 19:06 Patient left the ED. ic1 Signatures: Dispatcher [employer] EDMS Aneudy Echeverria PA PA Lesley Browning ds1 Ibis Marks cs9 Jyoti Baig, RN RN ic1 Marco Turcios ab2 Corrections: (The following items were deleted from the chart) 13:53 13:46 Chief complaint: Patient states: "I have a lot of pain in my legs and arms too. ab2 When I start to do any activity I get SOB." Pt denies any trauma or injury to her extremities. ab2 13:53 13:46 Acuity: JANE 4 ab2 ab2
[2021-11-22 19:22] VITALS: O2SAT 100
[2021-11-22 19:23] VITALS: TEMP 97.8
[2021-11-22 19:25] VITALS: BP 119/57
--- NOTE | 2021-11-24 12:57 | EKG ---
Test Date: 2021-11-22 Test Time: 14:51:40 Ore Trimmer: GANESH MEASUREMENT RESULTS: Intervals: Rate: 72 SD: 174 QRSD: 106 QT: 444 QTc: 486 [place]: P: 46 SD: 174 QRS: 143 T: 266 INTERPRETIVE STATEMENTS: Sinus rhythm with frequent premature ventricular complexes Right axis deviation Possible Anterior infarct, age undetermined ST & T wave abnormality, consider inferolateral ischemia Abnormal ECG Compared to ECG 06/04/2019 16:02:19 Ventricular premature complex(es) now present Right-axis deviation now present ST (T wave) deviation now present Possible ischemia now present Left-axis deviation no longer present Myocardial infarct finding still present Electronically Signed On 11-24-21 12:52:28 STOCK TRADER by Jay Wen
== END 2021-11-22 19:06 | disposition home or self-care (01) ==
LOC: ER 13:41
DX: R60.9 Edema, unspecified (principal); E11.9 Type 2 diabetes mellitus without complications; Z88.1 Allergy status to other antibiotic agents
CPT/HCPCS: 93005; 85025; 80048; 36415; 83735; 85610; 80076; 84484; 83880; 71045; 93970; J1940; 96374; 99284

== ENCOUNTER 2021-12-21 06:20 | Day surgery (SDC) | payer OTHER ==
[2021-12-17 16:35] LABS: Absolute Lymphocytes (CBC) 1.1 K/uL (0.7-4.9); Hematocrit 28.7 % (36.0-45.0); Lymphocytes % 15.2 % (15.3-44.8); MPV 8.8 fL (7.6-11.3); RBC Red Blood Cell Count 3.84 M/uL (3.86-4.86)
[2021-12-17 16:38] LABS: Protime INR 1.25
[2021-12-17 16:50] LABS: Potassium 4.5 mmol/L (3.5-5.1)
[2021-12-21] MEDS ORDERED: HEPA 1000U/500MLS 1,000 UNIT/500 ML BAG IV ONE ×2 (06:34→07:19)
[2021-12-21] MEDS ORDERED: LIDOCAINE 1% 20 ML MDV ONE (06:34)
[2021-12-21] MEDS ORDERED: FENTANYL CITR 100 MCG/2 ML ONE ×2 (06:35→07:06)
[2021-12-21] MEDS ORDERED: MIDAZOLAM HCL 2 MG/2 ML INJ ONE ×2 (06:35→07:07)
[2021-12-21] MEDS ORDERED: ATROPINE SULF 1 MG/10 ML SYR IV ONE ×2 (06:36→07:07)
[2021-12-21] MEDS ORDERED: NA CHLORIDE 0.9% 0 ML ONE ×2 (06:36→07:07)
[2021-12-21] MEDS ORDERED: NA CHLORIDE 0.9% 500 ML ONE (06:45)
[2021-12-21] MEDS ORDERED: D10W 250 ML IV ONE (07:18)
--- NOTE | 2021-12-21 09:26 | OP ---
Surgeon: Jay Wen MD Electrolysis Operator: Lydia Lou. Ms. Kelly is 71, has had bypass surgery many years ago. Recently had an abnormal stress test and a precipitous drop in her ejection fraction. Brought into the filling station laborer today as an outpatient for a he art catheterization, selective coronary arteriogram, vein graft injection, and STARR injection. Prior to her to admission, she had a creatinine of 1.7 and she was given Mucomyst prior to the procedure. Procedure In Detail: In the filling station laborer, she was prepped and draped in the routine sterile fashion. Gi ebenezer Versed and fentanyl for sedation. A 6-Czech sheath introduced in the right common femoral arter y successfully. Angiography there showed a patent common femoral artery, but it was difficult to do a closure, so hand pressure was held for hemostasis and patient will be at bedrest for 6 hours. A JR 4 catheter was used to cannulate the vein graft to the RCA, which was completely occluded. She had a vein graft to the OM, which was patent. However, the OM itself showed diffuse disease of 90% after the anastomosis of the graft. The STARR was patent to the LAD. The JL-4 catheter was used to inject the left main. She had a completely occluded LAD from the ostium and 100% OM 2. Please note that th e RCA was completely occluded as well. The patient tolerated the procedure well. There were no comp lications. Blood Loss: 5 mL. Anesthesia: Total conscious sedation was 45 minutes. Postoperative Diagnosis: Severe coronary artery disease. Plan: Plan is for medical therapy. I will probably increase her pravastatin from 40 to 80 mg daily. She is on appropriate CHF medication. We will watch her creatinine in the next week or 2. She will be at bedrest for 6 hours and she will go home today and I will see her in the office in 2 weeks . RENÉ/CHRIS Voice ID: [id number] Report ID: [id number]
[2021-12-21 09:50] VITALS: TEMP 96.9
[2021-12-21] MEDS ORDERED: ACETAMINOPHEN 500 MG TAB ONE (10:21)
[2021-12-21 13:38] VITALS: BP 116/96; O2SAT 99
--- NOTE | 2021-12-22 16:41 | EKG ---
Test Date: 2021-12-21 Test Time: 09:58:18 It Business Process Architect: JIM MEASUREMENT RESULTS: Intervals: Rate: 73 MN: 168 QRSD: 122 QT: 438 QTc: 482 [place]: P: 39 MN: 168 QRS: 14 T: 161 INTERPRETIVE STATEMENTS: Sinus rhythm with occasional premature ventricular complexes Nonspecific intraventricular conduction delay ST & T wave abnormality, consider lateral ischemia Abnormal ECG Compared to ECG 11/22/2021 14:51:40 Intraventricular conduction delay now present Right-axis deviation no longer present Myocardial infarct finding no longer present ST (T wave) deviation still present Possible ischemia still present Electronically Signed On 12-22-21 16:40:17 CDT by Jay Wen
== END 2021-12-21 14:14 | disposition home or self-care (01) ==
LOC: CCL 06:20
DX: I25.10 Atherosclerotic heart disease of native coronary artery without angina pectoris (principal); I25.810 Atherosclerosis of coronary artery bypass graft(s) without angina pectoris; I25.82 Chronic total occlusion of coronary artery; I13.0 Hypertensive heart and chronic kidney disease with heart failure and stage 1 through stage 4 chronic kidney disease, or unspecified chronic kidney disease; I50.33 Acute on chronic diastolic (congestive) heart failure; N18.2 Chronic kidney disease, stage 2 (mild); E11.22 Type 2 diabetes mellitus with diabetic chronic kidney disease; I65.22 Occlusion and stenosis of left carotid artery; I70.213 Atherosclerosis of native arteries of extremities with intermittent claudication, bilateral legs; E78.2 Mixed hyperlipidemia; Z95.5 Presence of coronary angioplasty implant and graft; Z79.4 Long term (current) use of insulin; Z79.899 Other long term (current) drug therapy; Z88.3 Allergy status to other anti-infective agents; Z20.822 Contact with and (suspected) exposure to COVID-19; Z82.49 Family history of ischemic heart disease and other diseases of the circulatory system
CPT/HCPCS: 93005; 85025; 80048; 36415; 85610; 82947 ×4; 85730; 93455; U0003; C1893; J2250; J3010; J7040; J1644 ×2; J0583

== ENCOUNTER 2022-05-24 10:31 | Emergency (ER) | payer OTHER ==
--- OUTSIDE RECORDS SUMMARY | 2022-05-24 10:34 | XMS REPORT | Continuity of Care Document ---
:1950 Author Organization [facility] t Address [address] [place] [address] Care Team Providers Name Role Phone BEN SOLIS Primary Care Physician Unavailable Mo Pemberton Attending Clinician Unavailable RANDI SAMUEL Attending Clinician Unavailable Moncho COLLINS, Randi Stokes Attending Clinician Jamir Alvarez RN Attending Clinician Unavailable SHAHEEN AUGUST Attending Clinician Unavailable Ajay Delgado Attending Clinician Mata COLLINS, Shaheen Attending Clinician Justina Velázquez MD Attending Clinician SHAHEEN AUGUST Admitting Clinician Unavailable Mata COLLINS, Shaheen Admitting Clinician Payers Payer Name Policy Type Policy Number Effective Date Expiration Date S [facility] [id number] 2017 DUAL COMPLETE HMO 00:00:00 [place] [id number] 2018 00:00:00 FORMERLY [facility] [id number] Problems This patient has no known problems. Allergies, Adverse Reactions, Alerts Allergy Allergy Status Severity Reaction(s) Onset Inactive Treating Comm ents Source Name Type Date Date Clinician LEVOFLOX DRUG Active N/V [facility] 02[facility]03 ity of 00:00: [place] [facility] Medications Ordered Filled Start Stop Current Ordering Indication Dosage Frequency Signature Comments Components Source Medication Medication Date Date Medication? Clinician (SIG) Name Name One Touch One Touch 2017-09 Yes Mo 1 lancet Common Delica Delica 0-22 Colleen Spirit Lancets Lancets 00:00: - [facility] 00 [facility] One Touch One Touch 2017-09 2019- No Mo as Common Ultra Test Ultra Test 0-22 04-20 Colleen directed Spirit Strips Strips 00:00: 00:00 - [facility] :00 [facility] Lyrica Lyrica Yes Mo 1 capsule Co mmon 8-06 Colleen Spirit 00:00: - [facility] 00 [facility] Metoprolol Metoprolol Yes Mo 1 tablet Common Tartrate Tartrate [facility] Furosemide Furosemide Yes Mo 1 tablet Common Colleen [facility] Metformin Metformin Yes Mo 1 tablet Common HCl HCl Colleen with a Spirit meal [facility] Clopidogrel Clopidogrel Yes Mo 1 tablet Common Bisulfate Bisulfate Colleen Spir it [facility] Pravastatin Pravastatin Yes Mo 1 tablet Common Sodium Sodium Colleen [facility] Potassium Potassium Yes Mo 1 tablet Common Chloride Chloride Colleen with food S pirit Jackeline ER Jackeline ER [facility] Procedures This patient has no known procedures. Encounters Start End Encounter Admission Attending Care Care Encounter Source Date/Time Date/Time Type Type Clinicians Facility Department ID 2022-05-17 Outpatient Hayleetorers [facility] [id number] Common 12:02:00 [place] [id number] [facility] 2022-05-17 2022-05-17 [id number] Common 00:00:00 00:00:00 [facility] 2020-02-04 2020-02-04 Outpatient Brendon SAMUEL [facility] [id number] Univers 13:30:00 13:30:00 RANDI [facility] 2020-02-04 2020-02-04 Outpatient Brendon SAMUEL [facility] [id number] Univers 13:30:00 13:30:00 RANDI [id number] [facility] 2020-02-04 2020-02-04 [facility] [id number] 00:00:00 00:00:00 Randi Matias [id number] [place] [id number] Professio [phone] replaced by [facility] 377 [facility] 2020-01-24 2020-01-24 [facility] [id number] 00:00:00 00:00:00 Randi Matias [id number] [place] [id number] Professio [phone] replaced by [facility] 377 [facility] 2020-01-23 2020-01-23 Transition Karel Alvarez [id number] 00:00:00 00:00:00 of Care Jamir Nealy [id number] [place] [id number] 2020-01-20 2020-01-22 Inpatient X SHAHEEN AUGUST [facility] [id number] [facility] 15:50:49 15:49:00 ity [facility] 2020-01-20 2020-01-22 [facility] Ajay Fuentes [facility] [id number] 15:50:49 15:49:00 Encounter Shaheen August [id number] [place] [id number] [place] [id number] 2019-05-14 2019-05-14 [facility] [id number] 14:48:59 16:09:33 Visit Justina Matias [id number] [place] [id number] Professio [phone] replaced by [facility] 220 [facility] 2019-01-23 2019-01-23 [facility] [id number] Common 11:44:00 11:44:00 [facility] 2019-01-03 2019-01-03 [facility] [id number] Common 13:39:00 13:39:00 t [facility] [address] [facility] 2018-09-20 2018-09-20 [facility] [id number] Common 09:51:00 09:51:[address] [facility] 2018-09-04 2018-09-04 [facility] [id number] Common 15:15:00 15:15:[address] [facility] 2018-08-29 2018-08-29 [facility] [id number] Common 11:25:00 11:25:[address] [facility] 2018-07-09 2018-07-09 [facility] [id number] Common 15:30:00 15:30:[address] [facility] 2018-05-25 2018-05-25 [facility] [id number] Common 16:23:00 16:23:[address] [facility] 2018-05-11 2018-05-11 [facility] [id number] Common 12:34:00 12:34:[address] [facility] 2018-04-24 2018-04-24 [facility] [id number] Common 10:45:00 10:45:[address] [facility] 2018-04-18 2018-04-18 [facility] [id number] Common 15:42:00 15:42:[address] [facility] 2018-03-19 2018-03-19 [facility] [id number] Common 13:45:00 13:45:[address] [facility] 2018-02-07 2018-02-07 [facility] [id number] Common 13:45:00 13:45:[address] [facility] Results Test Description Test Time Test Comments Results Result Comments Source VANCOMYCIN TROUGH 2019-07-11 01:15:00 Test Item Value Reference Range Interpretation Comme nts VANCOMYCIN TROUGH (test code 17.5 ug/ml 10.0-20.0 N Please refer to Medication = VANCT) Administration Record (MAR) forlast dose da te and time. CBC W/AUTO [id number] 16:57:00 Test Item Value Reference Range Interpretation Comments WHITE BLOOD CELL (test 6.3 x10 3/uL 3.2-11.5 N code = WBC) CORRECTED WBC (test 6.3 x10 3/uL 3.2-11.5 N -------- code = CWBC) --- --| ~~ Correcte d WBC Result ~~ | | WBC has been corrected due t o NRBC | --- [...] 6.4-10.5 N (test code = MPV) WBC [id number] 16:57:00 Test Item Value Reference Range Interpretation [...] code = NORMAL NORMAL PLTMORPH) BASIC METABOLIC [id number] 16:16:00 Test Item Value Reference Range Interpretation [...] = 9.1 mg/dL 8.5-10.5 N CA) VANCOMYCIN [id number] 16:16:00 Test Item Value Reference Range Interpretation Comments VANCOMYCIN TROUGH 18.4 ug/ml 10.0-20.0 N Please ref er to (test code = VANCT) Medicati on Administration Record (MAR) forlast d ose date and time. CBC W/AUTO [id number] 16:00:00 Test Item Value Reference Range Interpretation [...] 7.9 fl 6.4-10.5 N = MPV) WBC [id number] 16:00:00 Test Item Value Reference Range Interpretation Comments TOTAL CELLS COUNTED (test code = TCC) #CELLS RBC MORPHOLOGY COMMENT (test code = NORMAL MOC) PLATELET MORPHOLOGY (test code = NORMAL PLTMORPH) CBC W/AUTO [id number] 16:00:00 Test Item Value Reference Range Interpretation [...] 7.9 fl 6.4-10.5 N = MPV) WBC [id number] 16:00:00 Test Item Value Reference Range Interpretation Comments TOTAL CELLS COUNTED (test code = TCC) #CELLS RBC MORPHOLOGY COMMENT (test code = NORMAL MOC) PLATELET MORPHOLOGY (test code = NORMAL PLTMORPH)"
[2022-05-24] MEDS ORDERED: HYDROCODONE/APAP 10/325 TAB ONE (11:49)
--- NOTE | 2022-05-24 13:22 | RAD REPORT ---
EXAM DESCRIPTION: US - Extremity Venous Uni Ltd - 05/24/2022 1:14 pm CLINICAL HISTORY: Pain swelling COMPARISON: None. TECHNIQUE: Real-time sonographic evaluation of the right lower extremity deep venous system was perf ormed. FINDINGS: Normal compressibility, flow augmentation, phasic flow and spontaneous flow is identified in the right lower extremity deep venous system. No intraluminal filling defects seen. IMPRESSION: No DVT in the right lower extremity.
--- NOTE | 2022-05-24 13:57 | RAD REPORT ---
EXAM DESCRIPTION: RAD - Foot Right 3 View - 05/24/2022 1:30 pm CLINICAL HISTORY: pain, swelling COMPARISON: <Comparisons> FINDINGS/IMPRESSION: No acute fracture. No malalignment. Advanced midfoot and hindfoot degenerative changes. Calcaneal spurring. 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 No radiographic evidence of osteomyelitis.
[2022-05-24] MEDS ORDERED: KETOROLAC 30 MG/ML INJ ONE (14:26)
[2022-05-24 14:27] LABS: Absolute Lymphocytes (CBC) 0.8 K/uL (0.7-4.9); Hematocrit 30.8 % (36.0-45.0); Lymphocytes % 11.8 % (15.3-44.8); MCV 75.3 fL (80-100); MPV 8.1 fL (7.6-11.3); RBC Red Blood Cell Count 4.09 M/uL (3.86-4.86)
[2022-05-24 14:44] LABS: Potassium 3.9 mmol/L (3.5-5.1)
[2022-05-24 15:05] LABS: Anisocytosis 1+; Blood Morphology Comment NOTED (NOT SEEN); Platelet Estimate ADEQ; White Blood Cell Scan OK (OK)
--- NOTE | 2022-05-24 15:55 | ER ---
Nurse's Notes [facility] Name: Mildred Kelly Age: 72 yrs Sex: Female : 1950 Arrival Date: 05/24/2022 Time: 10:33 Bed 24 Private MD: Kingsley Millard Diagnosis: Pain in right foot Presentation: 05/24 11:05 Chief complaint: EMS states: Bilateral leg pains, no falls or trauma. Ebola Screen: ll1 Patient denies travel to an Ebola-affected area in the 21 days before illness onset. 11:05 Method Of Arrival: EMS 1 11:33 Coronavirus screen: At this time, the client does not indicate any symptoms associated bm7 with coronavirus-19. Initial Sepsis Screen: Does the patient meet any 2 criteria? No. Patient's initial sepsis screen is negative. Does the patient have a suspected source of infection? No. Patient's initial sepsis screen is negative. Risk Assessment: Do you want to hurt yourself or someone else? Patient reports no desire to harm self or others. Onset of symptoms is unknown. 11:33 Acuity: JANE 3 bm7 Triage Assessment: 11:33 General: Appears in no apparent distress. uncomfortable, Behavior is anxious. Pain: bm7 Complains of pain in right foot. EENT: No deficits noted. No signs and/or symptoms were reported regarding the EENT system. Neuro: No deficits noted. Cardiovascular: Pulses are palpable in right posterior tibial artery, right dorsalis pedis artery, left posterior tibial artery and left dorsalis pedis artery Edema is 1+ to left ankle, left foot, left toes, right ankle and right toes. Respiratory: No deficits noted. GI: No deficits noted. No signs and/or symptoms were reported involving the gastrointestinal system. : No deficits noted. No signs and/or symptoms were reported regarding the genitourinary system. Derm: Skin is intact, is healthy with good turgor, Skin is dry, Skin is pink, warm \T\ dry. Musculoskeletal: Reports pain in right foot. Historical: - Allergies: 11:06 Levaquin; ll1 - PMHx: 11:06 diabetes mellitus; ll1 - Immunization history:: Adult Immunizations up to date. - Social history:: Smoking status: Patient denies any tobacco usage or history of. Patient/guardian denies using alcohol. Screenin:13 Abuse screen: Denies threats or abuse. Denies injuries from another. Nutritional eh3 screening: No deficits noted. Tuberculosis screening: No symptoms or risk factors identified. Fall Risk None identified. Assessment: 13:13 General: Appears distressed, uncomfortable, Behavior is cooperative, appropriate for eh3 age, agitated. Pain: Complains of pain in lateral aspect of right calf, right ankle, lateral aspect of right foot, right calf, right Achilles, right heel, medial aspect of right calf, medial aspect of right foot, right albrecht, anterior aspect of right ankle and dorsum of right foot Pain does not radiate. Pain currently is 7 out of 10 on a pain scale. Quality of pain is described as aching, pressure, sharp, Pain began 2-3 days ago. Is continuous. Neuro: Level of Consciousness is awake, alert, obeys commands, Oriented to person, place, time, situation. Cardiovascular: Capillary refill < 3 seconds Patient's skin is warm and dry. Respiratory: Airway is patent Respiratory effort is even, unlabored. GI: Abdomen is round non-distended. : No signs and/or symptoms were reported regarding the genitourinary system. EENT: No signs and/or symptoms were reported regarding the EENT system. Derm: No signs and/or symptoms reported regarding the dermatologic system. Musculoskeletal: Circulation, motion, and sensation intact. Range of motion: limited in right ankle. 16:10 Reassessment: No changes from previously documented assessment. Patient and/or family ll1 updated on plan of care and expected duration. Pain level reassessed. 17:10 Reassessment: No changes from previously documented assessment. new test ordered. ll1 18:10 Reassessment: No changes from previously documented assessment. Patient and/or family ll1 updated on plan of care and expected duration. Pain level reassessed. Patient is alert, oriented x 3, equal unlabored respirations, skin warm/dry/pink. Vital Signs: 11:33 BP 125 / 76; Pulse 80; Resp 18; Temp 97.5; Pulse Ox 100% on R/A; Weight 79.38 kg (R); bm7 Height 5 ft. 5 in. (165.10 cm); Pain 10/10; 13:09 BP 116 / 89; Pulse 73; Resp 18; Pulse Ox 100% on R/A; Pain 7/10; eh3 14:00 BP 127 / 54; Pulse 71; Resp 18; Pulse Ox 100% on R/A; Pain 8/10; eh3 16:08 BP 123 / 52; Pulse 74; ll1 17:05 BP 125 / 58; Pulse 69; Resp 18; Pulse Ox 99% on R/A; eh3 18:15 BP 136 / 60; Pulse 64; Resp 17; Pulse Ox 99% ; Pain 7/10; ll1 11:33 Body Mass Index 29.12 (79.38 kg, 165.10 cm) bm7 ED Course: 10:33 Patient arrived in ED. rg4 10:33 Kingsley Millard DO is Private Physician. rg4 10:35 Arm band placed on. ll1 11:05 [facility]C [facility] kb 11:05 Corby De Santiago MD is Attending Physician. kb 11:35 Triage completed. bm7 12:28 Rin Helton, BRETT is Primary Nurse. eh3 13:13 Patient has correct armband on for positive identification. Bed in low position. Call eh3 light in reach. Side rails up X2. Client placed on continuous cardiac and pulse oximetry monitoring. NIBP monitoring applied. Door closed. Noise minimized. Lights dimmed. Warm blanket given. 14:00 Inserted saline lock: 20 gauge in left antecubital area, using aseptic technique. Blood eh3 collected. 14:52 Diet: Patient given snack. Patient given water. Tolerated well. eh3 15:52 Kingsley Millard DO is Referral Physician. kb Administered Medications: 11:42 Drug: [place] (HYDROcodone-acetaminophen) 10 mg-325 mg 1 tabs Route: PO; bm7 14:31 Follow up: Response: Pain is unchanged, physician notified eh3 14:24 Drug: Ketorolac 15 mg Route: IVP; Site: left antecubital; eh3 15:24 Follow up: Response: Marked relief of symptoms; Pain is decreased eh3 Medication: 13:13 VIS not applicable for this client. eh3 Outcome: 15:54 Discharge ordered by . kb 18:18 Patient left the ED. ll1 Signatures: Arlet Harden FNP-C CONSTRUCTION MANAGEMENT INSTRUCTOR-Catrina Alexander rg4 Audrey Boggs RN RN ll1 Paula Keith, BRETT RN bm7 Rin Helton RN RN eh3 Corrections: (The following items were deleted from the chart) 18: 16:44 No provider procedures requiring assistance completed. eh3 ll1 18: 16:44 IV discontinued, intact, bleeding controlled, No redness/swelling at site. ll1 Pressure dressing applied, eh3
--- NOTE | 2022-05-24 15:55 | EDPHYS ---
Physician Documentation [facility] Name: Mildred Kelly Age: 72 yrs Sex: Female : 1950 Arrival Date: 05/24/2022 Time: 10:33 Bed 24 Private MD: Kingsley Millard ED Physician Corby De Santiago HPI: 05/24 21:31 This 72 yrs old Female presents to ER via EMS with complaints of Leg Pain. kb 21:31 The patient presents with pain, tenderness. The complaints affect the right foot. kb Context: The problem was sustained at home, resulted from an unknown cause, Mechanism of Injury: Unknown the patient can partially bear weight, the patient is able to ambulate. The patient has not recently seen a physician. 21:32 Onset: The symptoms/episode began/occurred 1 week(s) ago. Modifying factors: The kb symptoms are alleviated by nothing, the symptoms are aggravated by weight bearing, movement. Associated signs and symptoms: The patient has no apparent associated signs or symptoms. Severity of symptoms: At their worst the symptoms were moderate, in the emergency department the symptoms are unchanged. The patient has not experienced similar symptoms in the past. Pt reports pain to right foot for a week, worse last night. Historical: - Allergies: 11:06 Levaquin; ll1 - PMHx: 11:06 diabetes mellitus; ll1 - Immunization history:: Adult Immunizations up to date. - Social history:: Smoking status: Patient denies any tobacco usage or history of. Patient/guardian denies using alcohol. ROS: 21:31 Constitutional: Negative for fever, chills, and weight loss. kb 21:31 MS/extremity: Positive for pain, tenderness, of the right foot. 21:31 All other systems are negative. Exam: 21:30 Constitutional: This is a well developed, well nourished patient who is awake, alert, kb and in no acute distress. Head/Face: Normocephalic, atraumatic. ENT: Moist Mucous membranes Cardiovascular: Regular rate and rhythm with a normal S1 and S2. No gallops, murmurs, or rubs. No pulse deficits. Respiratory: Respirations even and unlabored. No increased work of breathing. Talking in full sentences Abdomen/GI: Soft, non-tender. No distention Skin: Warm, dry with normal turgor. Normal color. Neuro: Awake and alert, GCS 15, oriented to person, place, time, and situation. Moves all extremities. Normal gait. Psych: Awake, alert, with orientation to person, place and time. Behavior, mood, and affect are within normal limits. 21:30 Musculoskeletal/extremity: Extremities: grossly normal except: noted in the right foot: pain, swelling, tenderness, ROM: intact in all extremities, Circulation is intact in all extremities. Sensation intact. Weight bearing: able to fully bear weight. Vital Signs: 11:33 BP 125 / 76; Pulse 80; Resp 18; Temp 97.5; Pulse Ox 100% on R/A; Weight 79.38 kg (R); bm7 Height 5 ft. 5 in. (165.10 cm); Pain 10/10; 13:09 BP 116 / 89; Pulse 73; Resp 18; Pulse Ox 100% on R/A; Pain 7/10; eh3 14:00 BP 127 / 54; Pulse 71; Resp 18; Pulse Ox 100% on R/A; Pain 8/10; eh3 16:08 BP 123 / 52; Pulse 74; ll1 17:05 BP 125 / 58; Pulse 69; Resp 18; Pulse Ox 99% on R/A; eh3 18:15 BP 136 / 60; Pulse 64; Resp 17; Pulse Ox 99% ; Pain 7/10; ll1 11:33 Body Mass Index 29.12 (79.38 kg, 165.10 cm) bm7 MDM: 11:38 Patient medically screened. kb 15:47 Data reviewed: vital signs, nurses notes. Data interpreted: Pulse oximetry: on room air kb is 100 %. Interpretation: normal. Counseling: I had a detailed discussion with the patient and/or guardian regarding: the historical points, exam findings, and any diagnostic results supporting the discharge/admit diagnosis, lab results, radiology results, the need for outpatient follow up, a family practitioner, to return to the emergency department if symptoms worsen or persist or if there are any questions or concerns that arise at home. 15:51 ED course: WEB SERVICES MANAGER aware reviewed. kb 05/24 14:31 Order name: CBC with Automated Diff; Complete Time: 15:17 EDMS 05/24 14:45 Order name: Basic Metabolic Panel; Complete Time: 14:45 EDAR 05/24 11:39 Order name: US Extremity Venous Unilateral Ltd kb 05/24 13:23 Order name: US; Complete Time: 13:28 EDMS 05/24 15:06 Order name: CBC Smear Scan; Complete Time: 15:17 EDMS 05/24 13:57 Order name: RAD; Complete Time: 13:58 EDMS 05/24 16:09 Order name: US LE Artery Uni Ltd kb 05/24 17:55 Order name: US; Complete Time: 17:56 EDMS Administered Medications: 11:42 Drug: [place] (HYDROcodone-acetaminophen) 10 mg-325 mg 1 tabs Route: PO; bm7 14:31 Follow up: Response: Pain is unchanged, physician notified eh3 14:24 Drug: Ketorolac 15 mg Route: IVP; Site: left antecubital; eh3 15:24 Follow up: Response: Marked relief of symptoms; Pain is decreased eh3 Disposition Summary: 05/24/22 15:54 Discharge Ordered Location: Home kb Condition: Stable kb Diagnosis - Pain in right foot kb Followup: kb - With: Emergency Department - When: As needed - Reason: Worsening of condition Followup: kb - With: Kingsley Millard DO - When: 2 - 3 days - Reason: Recheck today's complaints, Continuance of care, Re-evaluation by your physician Discharge Instructions: - Discharge Summary Sheet kb - Peripheral Neuropathy kb - Cellulitis, Adult, [id number] kb Forms: - Medication Reconciliation Form kb - Thank You Letter kb - Antibiotic Education kb - Prescription Opioid Use kb Prescriptions: - Cephalexin 500 mg Oral Capsule - take 1 capsule by ORAL route every 8 hours for 10 days; 30 capsule; Refills: 0, kb Product Selection Permitted - Tramadol 50 mg Oral Tablet - take 1 tablet by ORAL route every 8 hours as needed; 12 tablet; Refills: 0, kb Product Selection Permitted Addendum: 05/25/2022 22:31 Co-signature as Attending Physician, Corby De Santiago MD. r n Signatures: Dispatcher [employer] EDArlet Coronado, PAROLE OFFICER-C PAROLE OFFICER-CkCorby Alvarado MD MD rn Lewis, Lynsay, RN RN ll1 Paula Keith RN RN bm7 Rin Helton RN RN 3
--- NOTE | 2022-05-24 17:54 | RAD REPORT ---
EXAM DESCRIPTION: US - Lower Extremity Artery Uni Ltd - 05/24/2022 5:33 pm CLINICAL HISTORY: Leg pain COMPARISON: 09/13/2019 FINDINGS: Color Doppler, grayscale, and spectral analysis was performed. Biphasic right common femoral artery. Monophasic flow identified at the SFA and popliteal artery. Dam pened monophasic flow noted in the posterior tibial and dorsalis pedis arteries. 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 Dampened monophasic flow is also again noted in the posterior tib ial and dorsalis pedis arteries.
[2022-05-24 21:10] VITALS: TEMP 97.5
[2022-05-24 21:34] VITALS: O2SAT 99
[2022-05-24 21:36] VITALS: BP 136/60
== END 2022-05-24 18:18 | disposition home or self-care (01) ==
LOC: ER 10:31
DX: M79.671 Pain in right foot (principal); E11.9 Type 2 diabetes mellitus without complications; Z88.1 Allergy status to other antibiotic agents
CPT/HCPCS: 36415; 80048; 85025; 93926; 93971; 96374; 99284

== ENCOUNTER 2022-05-27 10:29 | Emergency (ER) | payer OTHER ==
--- OUTSIDE RECORDS SUMMARY | 2022-05-27 10:32 | XMS REPORT | Continuity of Care Document ---
:1950 Author Organization [facility] t Address [address] [place] [address] Care Team Providers Name Role Phone BEN SOLIS Primary Care Physician Unavailable Mo Pemberton Attending Clinician Unavailable RANDI SAMUEL Attending Clinician Unavailable Moncho COLLINS, Randi Stokes Attending Clinician Jamir Alvarez RN Attending Clinician Unavailable SHAHEEN AUGUST Attending Clinician Unavailable Ajay Delgado Attending Clinician Shaheen August MD Attending Clinician Justina Velázquez MD Attending Clinician SHAHEEN AUGUST Admitting Clinician Unavailable Shaheen August MD Admitting Clinician Payers Payer Name Policy Type Policy Number Effective Date Expiration Date [facility] [id number] 2017 DUAL COMPLETE HMO 00:00:00 [place] [id number] 2018 00:00:00 [facility] [id number] Problems This patient has no known problems. Allergies, Adverse Reactions, Alerts Allergy Allergy Status Severity Reaction(s) Onset Inactive Treating Comm ents Source Name Type Date Date Clinician [facility]FLOX [facility] [place] [facility] Medications Ordered Filled Start Stop Current Ordering Indication Dosage Frequency Signature Comments Components Source Medication Medication Date Date Medication? Clinician (SIG) Name Name One Touch One Touch 2017-09 Yes Mo 1 lancet Common Delica Delica 0-22 Colleen Spirit Lancets Lancets 00:00: - [facility] 00 [facility] One Touch One Touch 2017-09 2019- No Mo as Common Ultra Test Ultra Test 0-22 04-20 Colleen directed Spirit Strips Strips 00:00: 00:00 - [facility] 00 :00 [facility] Lyrica Lyrica 2017- Yes Mo 1 capsule Co mmon 8- Colleen Spirit 00:00: - [facility] 00 [facility] Metoprolol Metoprolol Yes Mo 1 tablet Common Tartrate Tartrate Colleen with food S pirit [facility] Furosemide Furosemide Yes Mo 1 tablet Common Colleen [facility] Metformin Metformin Yes Mo 1 tablet Common HCl HCl Colleen with a Spirit meal [facility] Clopidogrel Clopidogrel Yes Mo 1 tablet Common Bisulfate Bisulfate Colleen Spir it [facility] Pravastatin Pravastatin Yes Mo 1 tablet Common Sodium Sodium Colleen [facility] Potassium Potassium Yes Mo 1 tablet Common Chloride Chloride Colleen with food S pirit Jackeline ER Jackeline ER [facility] Procedures This patient has no known procedures. Encounters Start End Encounter Admission Attending Care Care Encounter Source Date/Time Date/Time Type Type Clinicians Facility Department ID 2022-05-17 Outpatient Nilay [facility] [id number] Common 12:02:00 [place] [id number] [facility] 2022-05-17 2022-05-17 ambulatory [facility] [id number] Common 00:00:00 00:00:00 [facility] 2020-02-04 2020-02-04 Outpatient Brendon SAMUEL [facility] [id number] Univers 13:30:00 13:30:00 [facility] 2020-02-04 Outpatient Brendon SAMUEL [facility] [id number] Univers 13:30:00 13:30:00 [facility] [id number] [facility] 2020-02-04 2020-02-[address] [facility] [id number] 00:00:00 00:00:00 Randi Matias [id number] [place] [id number] Professio [phone] [facility] 377 [facility] 2020-01-24 2020-01-24 Telephone Moncho [facility] [id number] 00:00:00 00:00:00 Randi Matias [id number] [place] [id number] Professio [phone] [place]al 377 [facility] 2020-01-23 2020-01-23 Transition Karel Alvarez [id number] 00:00:00 00:00:00 of Care Jamir Keating [id number] [place] [id number] [facility] 2020-01-20 2020-01-22 Inpatient X SHAHEEN AUGUST [facility] [id number] [facility] 15:50:49 15:49:00 ity [facility] 2020-01-20 2020-01-22 [facility] Ajay Fuentes [facility] [id number] 15:50:49 15:49:00 Encounter Shaheen August [id number] [place] [id number] [place] [id number] [facility] 2019-05-14 2019-05-14 Office Eber [facility] [id number] 14:48:59 16:09:33 Visit Justina Matias [id number] [place] [id number] Professio [phone] [facility] 220 [facility] 2019-01-23 2019-01-23 [facility] [id number] Common 11:44:00 11:44:00 [facility] 2019-01-03 2019-01-03 [facility] [id number] Common 13:39:00 13:39:[address] [facility] [address] Family - [facility] 2018-09-20 2018-09-20 [facility] [id number] Common 09:51:00 09:51:[address] [facility] 2018-09-04 2018-09-04 [facility] [id number] Common 15:15:00 15:15:[address] [facility] 2018-08-29 2018-08-29 [facility] [id number] Common 11:25:00 11:25:[address] [facility] 2018-07-09 2018-07-09 [facility] [id number] Common 15:30:00 15:30:[address] [facility] 2018-05-25 2018-05-25 [facility] [id number] Common 16:23:00 16:23:[address] [facility] 2018-05-11 2018-05-11 [facility] [id number] Common 12:34:00 12:34:[address] [facility] 2018-04-24 2018-04-24 [facility] [id number] Common 10:45:00 10:45:[address] [facility] 2018-04-18 2018-04-18 [facility] [id number] Common 15:42:00 15:42:[address] [facility] 2018-03-19 2018-03-19 [facility] [id number] Common 13:45:00 13:45:[address] [facility] 2018-02-07 2018-02-07 [facility] [id number] Common 13:45:00 13:45:[address] [facility] Results Test Description Test Time Test Comments Results Result Comments Source VANCOMYCIN TROUGH 2019-07-11 01:15:00 Test Item Value Reference Range Interpretation Comme nts VANCOMYCIN TROUGH (test code 17.5 ug/ml 10.0-20.0 N Please refer to Medication = VANCT) Administration Record (MAR) forlast dose da te and time. CBC W/AUTO [id number] 16:57:00 Test Item Value Reference Range Interpretation [...] 6.4-10.5 N (test code = MPV) WBC [id number] 16:57:00 Test Item Value Reference Range Interpretation [...] code = NORMAL NORMAL PLTMORPH) BASIC METABOLIC [id number] 16:16:00 Test Item Value Reference Range Interpretation [...] = 9.1 mg/dL 8.5-10.5 N CA) VANCOMYCIN [id number] 16:16:00 Test Item Value Reference Range Interpretation Comments VANCOMYCIN TROUGH 18.4 ug/ml 10.0-20.0 N Please ref er to (test code = VANCT) Medicati on Administration Record (MAR) forlast d ose date and time. CBC W/AUTO [id number] 16:00:00 Test Item Value Reference Range Interpretation [...] 7.9 fl 6.4-10.5 N = MPV) WBC [id number] 16:00:00 Test Item Value Reference Range Interpretation Comments TOTAL CELLS COUNTED (test code = TCC) #CELLS RBC MORPHOLOGY COMMENT (test code = NORMAL MOC) PLATELET MORPHOLOGY (test code = NORMAL PLTMORPH) CBC W/AUTO [id number] 16:00:00 Test Item Value Reference Range Interpretation [...] 7.9 fl 6.4-10.5 N = MPV) WBC [id number] 16:00:00 Test Item Value Reference Range Interpretation Comments TOTAL CELLS COUNTED (test code = TCC) #CELLS RBC MORPHOLOGY COMMENT (test code = NORMAL MOC) PLATELET MORPHOLOGY (test code = NORMAL PLTMORPH)"
[2022-05-27] MEDS ORDERED: HYDROCODONE/APAP 10/325 TAB ONE (12:34)
[2022-05-27 13:30] LABS: SARS-CoV-2 Antigen Rapid Res Positive (Negative)
--- NOTE | 2022-05-27 13:31 | ER ---
Nurse's Notes [facility] Name: Mildred Kelly Age: 72 yrs Sex: Female : 1950 Arrival Date: 05/27/2022 Time: 10:32 Bed 10 Private MD: Diagnosis: Peripheral vascular disease, unspecified Presentation: 05/27 11:26 Chief complaint: Patient states: My right foot and leg hurts really bad. I was here two bm7 days ago and they said they did not find anything wrong but it hurts really bad. Coronavirus screen: At this time, the client does not indicate any symptoms associated with coronavirus-19. Ebola Screen: No symptoms or risks identified at this time. Initial Sepsis Screen: Does the patient meet any 2 criteria? No. Patient's initial sepsis screen is negative. Does the patient have a suspected source of infection? No. Patient's initial sepsis screen is negative. Risk Assessment: Do you want to hurt yourself or someone else? Patient reports no desire to harm self or others. Onset of symptoms was May 22, 2022. Care prior to arrival: Medication(s) given: Tramadol \T\ 0700. 11:26 Method Of Arrival: Wheelchair bm7 11:26 Acuity: JANE 4 bm7 Triage Assessment: 11:30 General: Appears distressed, uncomfortable, Behavior is anxious, crying, listless, bm7 restless, uncooperative. Pain: Complains of pain in right foot and right leg Pain currently is 10 out of 10 on a pain scale. EENT: No deficits noted. No signs and/or symptoms were reported regarding the EENT system. Neuro: Denies numbness in right foot and right leg. Cardiovascular: No deficits noted. Respiratory: No deficits noted. GI: No deficits noted. No signs and/or symptoms were reported involving the gastrointestinal system. : No deficits noted. No signs and/or symptoms were reported regarding the genitourinary system. Derm: No deficits noted. No signs and/or symptoms reported regarding the dermatologic system. Musculoskeletal: Reports pain in right foot and right leg Denies numbness in, right foot and right leg. Historical: - Allergies: 11:30 Levaquin; bm7 - Home Meds: 11:30 Unable to obtain [Active]; bm7 - PMHx: 11:30 diabetes mellitus; Hypertensive disorder; bm7 - PSHx: 11:30 None; bm7 - Immunization history:: Adult Immunizations up to date, Client reports receiving the 2nd dose of the Covid vaccine, Client reports receiving the 1st dose of the Covid vaccine. - Social history:: Smoking status: Patient denies any tobacco usage or history of. Screenin:27 Abuse screen: Denies threats or abuse. Denies injuries from another. Nutritional ss screening: No deficits noted. Tuberculosis screening: Never had TB. Fall Risk None identified. Assessment: 14:27 Reassessment: Patient appears in no apparent distress at this time. Pt still complains ss of pain to R leg. BETTY Aguirre consulted with Hospitalist, Dr. Alex who states patient must follow up outpatient. Pt and friend verbalize understanding. Respiratory: Airway is patent Respiratory effort is even, unlabored. Vital Signs: 11:26 BP 110 / 87; Pulse 72; Resp 18; Temp 97.2(TE); Pulse Ox 100% on R/A; Weight 79.38 kg bm7 (R); Height 5 ft. 5 in. (165.10 cm); Pain 10/10; 11:26 Body Mass Index 29.12 (79.38 kg, 165.10 cm) bm7 ED Course: 10:32 Patient arrived in ED. rg4 11:30 Triage completed. bm7 11:30 Arm band placed on right wrist. bm7 11:33 Patient placed in waiting room, Patient notified of wait time. bm7 11:38 [facility] jl9 11:38 Ehsan Montague MD is Attending Physician. jl9 12:23 Winnie Barger, BRETT is Primary Nurse. ss 13:08 SARS RAPID Sent. kc6 13:24 Initial lab(s) drawn, by ms, sent to lab. Inserted saline lock: 22 gauge in left wrist, dh3 using aseptic technique. Blood collected. 13:30 Chinmay Alex is Hospitalizing Provider. jl9 14:27 Patient has correct armband on for positive identification. Bed in low position. Call ss light in reach. 14:27 No provider procedures requiring assistance completed. Patient did not have IV access ss during this emergency room visit. Administered Medications: 12:51 Drug: [place]m (HYDROcodone-acetaminophen) 10 mg-325 mg 1 tabs Route: PO; ss Medication: 14:27 VIS not applicable for this client. Outcome: 13:31 Decision to Hospitalize by Provider. janet 14:01 Discharge ordered by . [email or web address] 14:27 Discharged to home via wheelchair, with friend. 14:27 Condition: good 14:27 Discharge instructions given to patient, Instructed on discharge instructions, follow up and referral plans. medication usage, Demonstrated understanding of instructions, follow-up care, medications, Prescriptions given X 1. 14:30 Patient left the ED. Signatures: Winnie Barger, RN RN ss Catrina Lou4 Brandi Duncan 3 Paula Keith, RN RN Timothy Torres9 Jeny Quevedo kc6
--- NOTE | 2022-05-27 13:31 | EDPHYS ---
Physician Documentation [facility] Name: Mildred Kelly Age: 72 yrs Sex: Female : 1950 Arrival Date: 05/27/2022 Time: 10:32 Bed 10 Private MD: ED Physician Ehsan Montague HPI: 05/27 12:36 This 72 yrs old Female presents to ER via Wheelchair with complaints of Foot jl9 Pain, Leg Pain. Patient seen here numerous times here before and has PVD of r leg. . 12:36 The patient presents with pain. The complaints affect the lateral aspect of right calf jl9 and right ankle. Context: resulted from Known PVD.. Onset: The symptoms/episode began/occurred and became worse. Modifying factors: The symptoms are alleviated by remaining still, the symptoms are aggravated by movement. Severity of symptoms: in the emergency department the symptoms a " 6" out of "10". Historical: - Allergies: 11:30 Levaquin; bm7 - Home Meds: 11:30 Unable to obtain [Active]; bm7 - PMHx: 11:30 diabetes mellitus; Hypertensive disorder; bm7 - PSHx: 11:30 None; bm7 - Immunization history:: Adult Immunizations up to date, Client reports receiving the 2nd dose of the Covid vaccine, Client reports receiving the 1st dose of the Covid vaccine. - Social history:: Smoking status: Patient denies any tobacco usage or history of. ROS: 12:37 Constitutional: Negative for fever, chills, and weight loss, Eyes: Negative for injury, jl9 pain, redness, and discharge, ENT: Negative for injury, pain, and discharge, Neck: Negative for injury, pain, and swelling, Cardiovascular: Negative for chest pain, palpitations, and edema, Respiratory: Negative for shortness of breath, cough, wheezing, and pleuritic chest pain, Abdomen/GI: Negative for abdominal pain, nausea, vomiting, diarrhea, and constipation, Back: Negative for injury and pain. 12:37 Skin: Negative for injury, rash, and discoloration, Neuro: Negative for headache, weakness, numbness, tingling, and seizure, Psych: Negative for depression, anxiety, suicide ideation, homicidal ideation, and hallucinations, Allergy/Immunology: Negative for hives, rash, and allergies, Endocrine: Negative for neck swelling, polydipsia, polyuria, polyphagia, and marked weight changes, Hematologic/Lymphatic: Negative for swollen nodes, abnormal bleeding, and unusual bruising. 12:37 MS/extremity: Positive for pain. Exam: 12:38 Constitutional: This is a well developed, well nourished patient who is awake, alert, jl9 and in no acute distress. Head/Face: Normocephalic, atraumatic. Eyes: Pupils equal round and reactive to light, extra-ocular motions intact. Lids and lashes normal. Conjunctiva and sclera are non-icteric and not injected. Cornea within normal limits. Periorbital areas with no swelling, redness, or edema. ENT: Mucous membranes moist. Neck: Trachea midline, no thyromegaly or masses palpated, and no cervical lymphadenopathy. Supple, full range of motion without nuchal rigidity, or vertebral point tenderness. No Meningismus. Chest/axilla: Normal chest wall appearance and motion. Nontender with no deformity. No lesions are appreciated. Cardiovascular: Regular rate and rhythm with a normal S1 and S2. No gallops, murmurs, or rubs. Normal PMI, no JVD. No pulse deficits. Respiratory: Lungs have equal breath sounds bilaterally, clear to auscultation and percussion. No rales, rhonchi or wheezes noted. No increased work of breathing, no retractions or nasal flaring. Abdomen/GI: Soft, non-tender, with normal bowel sounds. No distension or tympany. No guarding or rebound. No evidence of tenderness throughout. Back: No spinal tenderness. No costovertebral tenderness. Full range of motion. Skin: Warm, dry with normal turgor. Normal color with no rashes, no lesions, and no evidence of cellulitis. 12:38 Neuro: Awake and alert, GCS 15, oriented to person, place, time, and situation. Cranial nerves II-XII grossly intact. Motor strength 5/5 in all extremities. Sensory grossly intact. Cerebellar exam normal. Normal gait. Psych: Awake, alert, with orientation to person, place and time. Behavior, mood, and affect are within normal limits. 12:38 Musculoskeletal/extremity: ROM: intact in all extremities, Pulses: noted to be 2+ in the right radial artery, right dorsalis pedis artery, left radial artery and left dorsalis pedis artery, Sensation intact. Vital Signs: 11:26 BP 110 / 87; Pulse 72; Resp 18; Temp 97.2(TE); Pulse Ox 100% on R/A; Weight 79.38 kg bm7 (R); Height 5 ft. 5 in. (165.10 cm); Pain 10/10; 11:26 Body Mass Index 29.12 (79.38 kg, 165.10 cm) bm7 MDM: 11:38 Patient medically screened. jl9 12:39 Data reviewed: vital signs, nurses notes, old medical records. jl9 13:58 Counseling: I had a detailed discussion with the patient and/or guardian regarding: the jl9 historical points, exam findings, and any diagnostic results supporting the discharge/admit diagnosis, the need for outpatient follow up, to return to the emergency department if symptoms worsen or persist or if there are any questions or concerns that arise at home, Patient agrees to see specialist with information given. Patient agrees to return to the ED if pain worsens or not controlled. . Physician consultation: Spoke to Dr. Alex regarding patient, states to have patient follow up with Dr. Soria at [facility]. . 05/27 12:35 Order name: BMP; Complete Time: 14:21 9 05/27 12:35 Order name: CBC with Diff 05/27 12:35 Order name: IV Saline Lock; Complete Time: 13:29 9 05/27 12:35 Order name: SARS RAPID; Complete Time: 13:39 05/27 13:32 Order name: Diet Ada 1800 Chris; Complete Time: 13:32 dh3 Administered Medications: 12:51 Drug: [place] (HYDROcodone-acetaminophen) 10 mg-325 mg 1 tabs Route: PO; ss Disposition Summary: 05/27/22 14:01 Discharge Ordered Location: Home(05/27/22 14:01) jl9 Condition: Stable(05/27/22 14:01) jl9 Diagnosis - Peripheral vascular disease, unspecified(05/27/22 14:01) jl9 Followup: jl9 - With: Private Physician - When: 1 - 2 days - Reason: Recheck today's complaints, Continuance of care, Re-evaluation by your physician Discharge Instructions: - Discharge Summary Sheet jl9 - Peripheral Vascular Disease jl9 - COVID-19 jl9 Forms: - Medication Reconciliation Form jl9 - Thank You Letter jl9 - Antibiotic Education jl9 - Prescription Opioid Use jl9 Prescriptions: - Tylenol-Codeine #3 300 mg-30 mg Oral - take 1 tablet by ORAL route every 6 hours As needed; 15 tablet; Refills: 0, jl9 Product Selection Permitted Signatures: Dispatcher [employer] EDWinnie San RN RN ss Paula Keith RN RN 7 Timothy Magdaleno jl9 Corrections: (The following items were deleted from the chart) 13:58 13:31 Inpatient Admission jl9 jl9 13:58 13:31 Chinmay Alex jl9 jl9 13:58 13:31 Telemetry/MedSurg (Inpatient) jl9 jl9 13:58 13:31 Fair jl9 jl9 13:58 13:31 new jl9 jl9 13:58 13:31 have improved jl9 jl9 13:58 13:31 Standard jl9 jl9 13:58 13:31 jl9 jl9 13:58 13:31 Peripheral vascular disease, unspecified jl9 jl9
[2022-05-27 13:49] LABS: Absolute Lymphocytes (CBC) 0.8 K/uL (0.7-4.9); Hematocrit 33.7 % (36.0-45.0); Lymphocytes % 8.5 % (15.3-44.8); RBC Red Blood Cell Count 4.49 M/uL (3.86-4.86)
[2022-05-27 14:15] LABS: Potassium 3.9 mmol/L (3.5-5.1)
[2022-05-27 14:32] LABS: Anisocytosis 1+; Blood Morphology Comment NOTED (NOT SEEN); Platelet Estimate ADEQ; White Blood Cell Scan OK (OK)
[2022-05-27 15:33] VITALS: BP 110/87; TEMP 97.2; O2SAT 100
== END 2022-05-27 14:30 | disposition home or self-care (01) ==
LOC: ER 10:29
DX: I73.9 Peripheral vascular disease, unspecified (principal); E11.9 Type 2 diabetes mellitus without complications; I10 Essential (primary) hypertension; Z20.822 Contact with and (suspected) exposure to COVID-19; Z88.1 Allergy status to other antibiotic agents
CPT/HCPCS: 36415; 80048; 85025; 87811; 99284